=== PATIENT | female | born 1950 | race Hispanic/Latino ===

== ENCOUNTER 2018-03-05 15:22 | Emergency (ER) | payer OTHER ==
--- OUTSIDE RECORDS SUMMARY | 2018-03-05 15:25 | XMS REPORT ---
:1950 [facility] [address] [place] [address] Care Team Providers Name Role Phone Julio CHAMORRO Unavailable Unavailable Tracy MCDONNELL Unavailable Unavailable OLI BRYANT Unavailable Unavailable Problems This patient has no known problems. Allergies, Adverse Reactions, Alerts This patient has no known allergies or adverse reactions. Medications This patient has no known medications. Results Test Description Test Time Test Comments Text Results Atomic Results Result Comments FERRITIN 2017-09-26 11:00:00 Test Item Value Reference Range Comments FERRITIN (BEAKER) (test exva=273) 34 ng/mL 5-275 HEPATIC FUNCTION [id number] 10:44:00 Test Item Value Reference Range Comments TOTAL PROTEIN (BEAKER) (test jfoa=575) 7.4 gm/dL 6.0-8.3 ALBUMIN (BEAKER) (test ivgf=7469) 3.6 g/dL 3.5-5.0 BILIRUBIN TOTAL (BEAKER) (test mwub=857) 0.7 mg/dL 0.2-1.2 BILIRUBIN DIRECT (BEAKER) (test uijm=229) 0.3 mg/dL 0.1-0.5 ALKALINE PHOSPHATASE (BEAKER) (test uufe=927) 109 U/L 40-150 AST (SGOT) (BEAKER) (test jsuz=582) 23 U/L 5-34 ALT (SGPT) (BEAKER) (test qtnc=174) 16 U/L 6-55 BASIC METABOLIC [id number] 10:44:00 Test Item Value Reference Range Comments SODIUM (BEAKER) (test 138 meq/L 136-145 dxsk=165) POTASSIUM (BEAKER) (test 4.4 meq/L 3.5-5.1 jobf=837) CHLORIDE (BEAKER) (test 106 meq/L 98-107 sqpk=237) CO2 (BEAKER) (test 25 meq/L 22-29 ncom=988) BLOOD UREA NITROGEN 14 mg/dL 7-21 (BEAKER) (test dgvr=436) CREATININE (BEAKER) (test 0.93 mg/dL 0.57-1.25 twfp=232) GLUCOSE RANDOM (BEAKER) 90 mg/dL 70-105 (test sbyk=070) CALCIUM (BEAKER) (test 8.7 mg/dL 8.4-10.2 qfjg=408) EGFR (BEAKER) (test 60 mL/min/1.73 sq m ESTIMATED GFR IS NOT hkug=6036) ACCURATE CREATININE CLEARANCE IN PREDICTING GLOMERULAR FILTRATION RATE. ESTIMATED GFR IS NOT APPLICABLE FOR DIALYSIS PATIENTS. IRON, TIBC, % SAT. (WITHOUT FERRITIN)2017-09-26 10:39:00 Test Item Value Reference Range Comments IRON (BEAKER) (test mana=553) 37 ug/dL 40-160 TOTAL IRON BINDING CAPACITY (BEAKER) (test 365 ug/dL 250-450 gjjs=893) IRON % SATURATION (2) (BEAKER) (test kyrh=9775) 10 % 20-55 CBC W/PLT COUNT & AUTO [id number] 10:26:00 Test Item Value Reference Range Comments WHITE BLOOD CELL COUNT (BEAKER) (test njwl=176) 3.9 K/ L 3.5-10.5 RED BLOOD CELL COUNT (BEAKER) (test ixsr=219) 3.85 M/ L 3.93-5.22 HEMOGLOBIN (BEAKER) (test nxha=330) 9.1 GM/DL 11.2-15.7 HEMATOCRIT (BEAKER) (test kovj=950) 30.6 % 34.1-44.9 MEAN CORPUSCULAR VOLUME (BEAKER) (test ovuk=037) 79.5 fL 79.4-94.8 MEAN CORPUSCULAR HEMOGLOBIN (BEAKER) (test 23.6 pg 25.6-32.2 pvps=287) MEAN CORPUSCULAR HEMOGLOBIN CONC (BEAKER) (test 29.7 GM/DL 32.2-35.5 woky=136) RED CELL DISTRIBUTION WIDTH (BEAKER) (test 23.3 % 11.7-14.4 dgva=073) PLATELET COUNT (BEAKER) (test xngu=376) 89 K/CU MM 150-450 MEAN PLATELET VOLUME (BEAKER) (test evoe=022) 11.5 fL 9.4-12.3 NUCLEATED RED BLOOD CELLS (BEAKER) (test 0 /100 WBC 0-0 ndng=257) NEUTROPHILS RELATIVE PERCENT (BEAKER) (test 80 % ppja=923) LYMPHOCYTES RELATIVE PERCENT (BEAKER) (test 11 % iwzx=970) MONOCYTES RELATIVE PERCENT (BEAKER) (test 7 % ejyf=195) EOSINOPHILS RELATIVE PERCENT (BEAKER) (test 2 % whmc=057) BASOPHILS RELATIVE PERCENT (BEAKER) (test 1 % jskd=605) NEUTROPHILS ABSOLUTE COUNT (BEAKER) (test 3.09 K/ L 1.56-6.13 ewet=697) LYMPHOCYTES ABSOLUTE COUNT (BEAKER) (test 0.42 K/ L 1.18-3.74 ljgg=497) MONOCYTES ABSOLUTE COUNT (BEAKER) (test yyvw=498) 0.27 K/ L 0.24-0.36 EOSINOPHILS ABSOLUTE COUNT (BEAKER) (test 0.07 K/ L 0.04-0.36 prvv=154) BASOPHILS ABSOLUTE COUNT (BEAKER) (test hmev=184) 0.02 K/ L 0.01-0.08 IMMATURE GRANULOCYTES-RELATIVE PERCENT (BEAKER) 0 % 0-1 (test iaoo=3655) PROTHROMBIN [id number] 10:19:00 Test Item Value Reference Range Comments PROTIME (BEAKER) (test ynez=292) 15.6 seconds 11.7-14.7 INR (BEAKER) (test idzd=335) 1.3 <=5.9 RECOMMENDED COUMADIN/WARFARIN INR THERAPY RANGESSTANDARD DOSE: 2.0 - 3.0 Includes: PROPHYLAXIS forvenous thrombosis, systemic embolization; TREATMENT for venous thrombosis and/or pulmonary embolus.HIGH RISK: Target INR is 2.5-3.5 for patients with mechanical heart valves.RAD, CHEST, 2 [id number] 09:58: 00Reason for Exam:->follow up pleural effusion, follow up lung noduleFINAL REPORT EXAM: Frontal lateral chest radiograph HISTORY PROVIDED: Follow-up pleural effusion, follow-up lung nodule COMPARISON: Chest CT 08/30/2017 IMPRESSION:A moderate right pleural effusion is seen, similar to the previous CT examination allowing for differences in modality. The 3 mm pulmonary nodule described on the chest CT in the right lower lobe cannot be seen on this chest x-ray and a follow-up chest CT is recommended in August 2018 as previously recommended on the chest CT report. Right biapical pleural- parenchymal scarring/thickening is noted. The left lung isclear. No discernible pneumothorax. The cardiomediastinal silhouette is within normal limits. Atherosclerotic calcification of the aorta. Degenerative changes of the spine are present. No acute osseousabnormality. Signed: Neha Cruz MDReport Verified Date/Time: 09/26/2017 09:58:49 Reading Location: [facility] Mammo Reading Room BODY FLUID CULTURE + GRAM [id number] 08:01:00 Test Item Value Reference Range Comments CULTURE (BEAKER) (test fack=6243) No growth GRAM STAIN RESULT (BEAKER) (test <1+ WBCs vgdg=2379) GRAM STAIN RESULT (BEAKER) (test No organisms seen fqgb=86782) [id number] 21:07:00Medical Cytology Report Case: [id number] Authorizing Provider: Russ Chamorro MD Collected: 08/30/2017 1600 Ordering Location: [facility] Radiology Ultrasound Received: 08/31/2017 1011 Pathologist: Maricruz Nixon MD Specimen: Peritoneal Fluid PERITONEAL FLUID (CYTOSPINS): - NO MALIGNANT CELLS IDENTIFIED Signing Pathologist Direct Phone Line: Cytospins show mesothelial cells, macrophages and mixed inflammatory cells. Mild atypia is seen in the range of reactive changes. No diagnostic features of malignancy are seen. Clinical correlation is recommended. [id number]; liver cirrhosis PERITONEAL FLUID4 cytospins owuynzew5995 ml yellow fluidCollected: [id number]: [id number] [facility], Department of Pathology, [address] [place] [address], [place] [facility], Department of Pathology, [address] [place] [address], AWPY FLUID CELL COUNT WITH [id number] 10 :35:00 Test Item Value Reference Range Comments APPEARANCE FLUID (BEAKER) (test ioaw=438) Clear Clear COLOR FLUID (BEAKER) (test xfqe=681) Yellow Colorless, Straw Pale yellow RBC FLUID (BEAKER) (test mvmm=752) 213 /cu mm <=1 ADJUSTED WBC FLUID (BEAKER) (test lbye=5499) 78 /cu mm <=5 LINING CELLS (BEAKER) (test vpra=2584) 2 /cu mm <=1 NEUTROPHILS FLUID (BEAKER) (test wkws=8871) 9 % LYMPHS FLUID (BEAKER) (test khlb=900) 14 % MONO/MACROPHAGE FLUID (BEAKER) (test 77 % tlda=988) EOSINOPHILS FLUID (BEAKER) (test ynvg=839) 0 % BASO FLUID (BEAKER) (test hqdw=073) 0 % CONTAINER BODY FLUID (BEAKER) (test EDTA Tube ljen=0533) TRIGLYCERIDES, BODY [id number] 09:34:00 Test Item Value Reference Range Comments TRIGLYCERIDES FLUID (BEAKER) (test tpzj=839) < mg/dL Reference Range: No Normals Assay performance has not been validated for this type of specimen.ALBUMIN, BODY [id number] 09:34:00 Test Item Value Reference Range Comments ALBUMIN FLUID (BEAKER) (test xsyi=977) 0.4 gm/dL Reference Range: No Normals Assay performance has not been validated for this type of specimen.PROTEIN, BODY [id number] 09:34:00 Test Item Value Reference Range Comments PROTEIN FLUID (BEAKER) (test tdnm=725) < g/dL Absence of reference range indicates that normals have not been defined.Assay performance has not been validated for this type of specimen.CT, CHEST, WITHOUT [id number] 17:13:00FINAL REPORT TECHNIQUE: CT scan of the chest WITHOUT intravenous contrast. Dose modulation, iterative reconstruction, and/or weight-based adjustment of the mA/kV was utilized to reduce the radiation dose to as low as reasonably achievable. INDICATION: 67- year-old woman with pulmonary nodule. COMPARISON: Chest CT 10/05/2015. FINDINGS : ABSENCE OF INTRAVENOUS CONTRAST DECREASES SENSITIVITY FOR DETECTION OF FOCAL LESIONS AND VASCULAR PATHOLOGY. LINES/TUBES: None. LUNGS AND AIRWAYS: Central airways are patent. 3 mm nodule in the basal right lower lobe, not seen on prior exam (axial lung window series image 45). Unchanged biapical pleural- parenchymal scarring, right greater thanleft. Unchanged benign 3 mm nodule in the right apex (axial lung window series image 13). Relaxationatelectasis in the right lower lobe secondary to pleural effusions detail below. PLEURA: Moderate-large right pleural effusion. Unchanged scattered areas of pleural thickening/plaques. HEART AND MEDIASTINUM: Unchanged punctate calcification in the left thyroid. No significant mediastinal, hilar, or axillary lymphadenopathy. The heart and pericardium are within normal limits. Atherosclerotic calcifications in the thoracic aorta. SOFT TISSUES AND BONES: Osteopenia. Degenerative changes of the visualized spine. UPPER ABDOMEN: Cirrhotic morphology of the liver with unchanged cyst in the hepatic dome. Prior cholecystectomy. Splenomegaly. Small volume ascites. Clips in the stomach. IMPRESSION:3 mm nodule in the right lower lobe, not seen on prior exam. Unchanged benign biapical pleural-parenchymal scarring and right apical nodule. Moderate-large right pleural effusion. Cirrhosis with splenomegaly andsmall volume ascites. RECOMMENDATION:Follow-up noncontrast chest CT may be obtained in 12 months to assess stability of right lower lobe pulmonary nodule. Signed: Jr Terrazas MDReport Verified Date/Time: 08/30/2017 17:13:58 Reading Location: [facility] C013Y CT Body Reading Room U/S, ABDOMINAL, WITH [id number] 16:44:00Reason for Exam:->cirrhosis, screen for HCC, evaluate vesselsFINAL REPORT HISTORY : Cirrhosis COMPARISON : 12/22/2016 COMMENT : Complete ultrasound examination of the abdomen with color Doppler and spectral evaluation of the abdominal vasculature was performed. The visualized pancreas is unremarkable. The liver is normal in size measuring 12.0 cm in length and demonstrates a subtle nodular contour. The hepatic parenchyma is heterogeneous and coarse. There is a 2.1 x 2.2 x 2.1 cm cyst identified within the right hepatic lobe. No solid hepatic masses are identified. The gallbladder surgically absent. There is no intrahepatic biliary ductal dilatation. The common bile duct measures 4 mm. The spleen is enlarged measuring 16.4 cm in length. No focal splenic lesions are identified. The kidneys are normal in size measuring 11.3 cm on the right and 9.6 cm is in the left. An extrarenal pelvis is noted on the right. There is no evidence for solid renal mass, hydronephrosis, or shadowing calculi. There is scattered ascites and a right pleural effusion. Vascular:Nonocclusive thrombus is again identified within the main portal vein and proximal left portal vein, similar to the prior examination. There is antegrade flow within the main portalvein with a diameter of 1.7 cm. Peak systolic velocities 18.5 cm/s. Antegrade flow also noted withinthe right and left portal veins. The proper hepatic artery is patent with a resistive index of 0.9. The right and left hepatic arteries are patent with resistive indices of 0.9 and 0.8 respectively. Arterial waveforms are within normal limits. The SMV is patent with antegrade flow. The splenic artery and vein are patent. The IVC is patent and unremarkable. The middle, right, and left hepatic veins are patent with antegrade flow. The aorta tapers normally. IMPRESSION : Findings suggestive of cirrhosis and sequela of portal hypertension. Nonocclusive thrombus again identified within the portal system, similar to prior examinations. Right hepatic cyst. Ascites and right pleural effusion. Signed: Tanner Quintanilla MDReport Verified Date/Time: 08/30/2017 16:44: 30 Reading Location: [address] Ultrasound Reading Room U/S, [id number] 16:06:00Please send ascitic fluid for cell count and differential, albumin, protein, cytology, triglycerides, culture and sensitivity.If Cr > 1.5, do not remove more than 3.5L of ascitic fluid.If more than 3L are removed, please administer 200 mL of albumin 25% (50 grams) IV x 1.Please send ascitic fluid for cell count and differential, albumin, protein, cytology, triglycerides, culture and sensitivity.IfCr > 1.5, do not remove more than 3.5L of ascitic fluid.If more than 3L are removed, please administer 200 mL of albumin 25% (50 grams) IV x 1.Reason for Exam:->ascitesFINAL REPORT HISTORY : Ascites COMPARISON : None Comment : The procedure, including the risks and complications of the procedure, were explained to the patient and the patient consented. A pocket of fluid was identified in the right quadrant of the abdomen. This area was marked. The area was prepped and draped in the usual sterile fashion. 1% lidocaine was applied to the skin and deep soft tissues. A 5 Georgian multi-sidehole catheter was inserted and removed from the peritoneal space and approximately 1050 milliliters of clear yellow fluid was aspirated from the abdomen. Specimens were collected for the lab. There were no immediate complications. Impression: Successful ultrasound guided paracentesis with aspiration of 1050 mL of clear yellow fluid. Signed: Tanner Quintanilla MDReport Verified Date/Time: 08/30/2017 16:06:12 Reading Location: [address] Ultrasound Reading Room Electronically signed by: TANNER QUINTANILLA MD on 04:06 PMALPHA FETOPROTEIN (AFP), TUMOR [id number] 15:39:00 Test Item Value Reference Range Comments ALPHA-FETOPROTEIN (BEAKER) (test qsck=7393) 3.3 ng/mL <10.0 CBC W/PLT COUNT & AUTO [id number] 15:31:00 Test Item Value Reference Range Comments WHITE BLOOD CELL COUNT (BEAKER) (test shkb=407) 4.4 K/ L 3.5-10.5 RED BLOOD CELL COUNT (BEAKER) (test vaba=688) 4.22 M/ L 3.93-5.22 HEMOGLOBIN (BEAKER) (test ptyk=598) 9.4 GM/DL 11.2-15.7 HEMATOCRIT (BEAKER) (test smee=571) 31.8 % 34.1-44.9 MEAN CORPUSCULAR VOLUME (BEAKER) (test wvha=610) 75.4 fL 79.4-94.8 MEAN CORPUSCULAR HEMOGLOBIN (BEAKER) (test 22.3 pg 25.6-32.2 mxev=813) MEAN CORPUSCULAR HEMOGLOBIN CONC (BEAKER) (test 29.6 GM/DL 32.2-35.5 sstd=903) RED CELL DISTRIBUTION WIDTH (BEAKER) (test 20.0 % 11.7-14.4 djhy=924) PLATELET COUNT (BEAKER) (test ckpf=136) 89 K/CU MM 150-450 MEAN PLATELET VOLUME (BEAKER) (test xeyy=062) 10.2 fL 9.4-12.3 NUCLEATED RED BLOOD CELLS (BEAKER) (test 0 /100 WBC 0-0 tlwf=611) NEUTROPHILS RELATIVE PERCENT (BEAKER) (test 84 % jtjv=775) LYMPHOCYTES RELATIVE PERCENT (BEAKER) (test 8 % uxii=557) MONOCYTES RELATIVE PERCENT (BEAKER) (test 8 % czbb=490) EOSINOPHILS RELATIVE PERCENT (BEAKER) (test 0 % nyxu=642) BASOPHILS RELATIVE PERCENT (BEAKER) (test 0 % tplm=662) NEUTROPHILS ABSOLUTE COUNT (BEAKER) (test 3.65 K/ L 1.56-6.13 ahpx=579) LYMPHOCYTES ABSOLUTE COUNT (BEAKER) (test 0.34 K/ L 1.18-3.74 udme=886) MONOCYTES ABSOLUTE COUNT (BEAKER) (test khig=592) 0.34 K/ L 0.24-0.36 EOSINOPHILS ABSOLUTE COUNT (BEAKER) (test 0.01 K/ L 0.04-0.36 vqtd=271) BASOPHILS ABSOLUTE COUNT (BEAKER) (test mtlt=162) 0.01 K/ L 0.01-0.08 IMMATURE GRANULOCYTES-RELATIVE PERCENT (BEAKER) 1 % 0-1 (test yzpp=8896) HEPATIC FUNCTION [id number] 15:15:00 Test Item Value Reference Range Comments TOTAL PROTEIN (BEAKER) (test bozc=700) 8.4 gm/dL 6.0-8.3 ALBUMIN (BEAKER) (test xsrc=8991) 4.0 g/dL 3.5-5.0 BILIRUBIN TOTAL (BEAKER) (test fbym=304) 1.0 mg/dL 0.2-1.2 BILIRUBIN DIRECT (BEAKER) (test dmad=042) 0.5 mg/dL 0.1-0.5 ALKALINE PHOSPHATASE (BEAKER) (test eabx=317) 106 U/L 40-150 AST (SGOT) (BEAKER) (test bsae=549) 29 U/L 5-34 ALT (SGPT) (BEAKER) (test shrh=494) 17 U/L 6-55 BASIC METABOLIC [id number] 15:15:00 Test Item Value Reference Range Comments SODIUM (BEAKER) (test 140 meq/L 136-145 egmr=023) POTASSIUM (BEAKER) (test 3.6 meq/L 3.5-5.1 uvty=142) CHLORIDE (BEAKER) (test 105 meq/L 98-107 ndrs=368) CO2 (BEAKER) (test 25 meq/L 22-29 udlt=116) BLOOD UREA NITROGEN 11 mg/dL 7-21 (BEAKER) (test qjdv=009) CREATININE (BEAKER) (test 0.76 mg/dL 0.57-1.25 yerz=298) GLUCOSE RANDOM (BEAKER) 62 mg/dL 70-105 (test qaox=202) CALCIUM (BEAKER) (test 9.3 mg/dL 8.4-10.2 igfy=370) EGFR (BEAKER) (test 75 mL/min/1.73 sq m ESTIMATED GFR IS NOT qjhf=6612) ACCURATE CREATININE CLEARANCE IN PREDICTING GLOMERULAR FILTRATION RATE. ESTIMATED GFR IS NOT APPLICABLE FOR DIALYSIS PATIENTS. PROTHROMBIN TIME/[id number] 15:06:00 Test Item Value Reference Range Comments PROTIME (BEAKER) (test mnrg=739) 16.5 seconds 11.7-14.7 INR (BEAKER) (test vwaw=516) 1.3 <=5.9 RECOMMENDED COUMADIN/WARFARIN INR THERAPY RANGESSTANDARD DOSE: 2.0 - 3.0 Includes: PROPHYLAXIS forvenous thrombosis, systemic embolization; TREATMENT for venous thrombosis and/or pulmonary embolus.HIGH RISK: Target INR is 2.5-3.5 for patients with mechanical heart valves.ALPHA FETOPROTEIN (AFP), TUMOR [id number] 14:27:00 Test Item Value Reference Range Comments ALPHA-FETOPROTEIN (BEAKER) (test mhvv=4381) 4.0 ng/mL <10.0 Effective 09/29/2014: Reference Range ChangeNew: <10.0 Previous: 0.0- 8.0HEPATIC FUNCTION [id number] 13:59:00 Test Item Value Reference Range Comments TOTAL PROTEIN (BEAKER) (test cvus=840) 7.9 gm/dL 6.0-8.3 ALBUMIN (BEAKER) (test oeeq=0958) 3.9 g/dL 3.5-5.0 BILIRUBIN TOTAL (BEAKER) (test wvky=343) 0.8 mg/dL 0.2-1.2 BILIRUBIN DIRECT (BEAKER) (test bvjc=609) 0.4 mg/dL 0.1-0.5 ALKALINE PHOSPHATASE (BEAKER) (test zrci=434) 108 U/L 40-150 AST (SGOT) (BEAKER) (test odxn=045) 35 U/L 5-34 ALT (SGPT) (BEAKER) (test jwdp=664) 24 U/L 6-55 BASIC METABOLIC [id number] 13:59:00 Test Item Value Reference Range Comments SODIUM (BEAKER) (test 140 meq/L 136-145 rxss=877) POTASSIUM (BEAKER) (test 4.1 meq/L 3.5-5.1 gcum=823) CHLORIDE (BEAKER) (test 107 meq/L 98-107 faec=433) CO2 (BEAKER) (test 28 meq/L 22-29 mrrj=889) BLOOD UREA NITROGEN 12 mg/dL 7-21 (BEAKER) (test uqiz=526) CREATININE (BEAKER) (test 0.81 mg/dL 0.57-1.25 gxll=714) GLUCOSE RANDOM (BEAKER) 61 mg/dL 70-105 (test qaln=321) CALCIUM (BEAKER) (test 9.5 mg/dL 8.4-10.2 geug=036) EGFR (BEAKER) (test 70 mL/min/1.73 sq m ESTIMATED GFR IS NOT krqo=8028) ACCURATE CREATININE CLEARANCE IN PREDICTING GLOMERULAR FILTRATION RATE. ESTIMATED GFR IS NOT APPLICABLE FOR DIALYSIS PATIENTS. PROTHROMBIN TIME/[id number] 13:42:00 Test Item Value Reference Range Comments PROTIME (BEAKER) (test yclb=734) 14.8 seconds 11.7-14.7 INR (BEAKER) (test bqbc=907) 1.2 <=5.9 RECOMMENDED COUMADIN/WARFARIN INR THERAPY RANGESSTANDARD DOSE: 2.0 - 3.0 Includes: PROPHYLAXIS forvenous thrombosis, systemic embolization; TREATMENT for venous thrombosis and/or pulmonary embolus.HIGH RISK: Target INR is 2.5-3.5 for patients with mechanical heart valves.CBC W/PLT COUNT & AUTO [id number] 13:35:00 Test Item Value Reference Range Comments WHITE BLOOD CELL COUNT (BEAKER) (test ghjt=881) 4.0 K/ L 4.0-10.0 RED BLOOD CELL COUNT (BEAKER) (test zzts=308) 3.60 M/ L 4.00-5.00 HEMOGLOBIN (BEAKER) (test rhfi=866) 10.2 GM/DL 12.0-15.0 HEMATOCRIT (BEAKER) (test icny=622) 29.8 % 36.0-45.0 MEAN CORPUSCULAR VOLUME (BEAKER) (test hgno=390) 82.7 fL 82.0-99.0 MEAN CORPUSCULAR HEMOGLOBIN (BEAKER) (test 28.4 pg 27.0-33.0 wxrn=563) MEAN CORPUSCULAR HEMOGLOBIN CONC (BEAKER) (test 34.4 GM/DL 32.0-36.0 hzmz=275) RED CELL DISTRIBUTION WIDTH (BEAKER) (test 15.3 % 10.3-14.2 wdlh=222) PLATELET COUNT (BEAKER) (test mpwn=607) 81 K/CU MM 150-430 MEAN PLATELET VOLUME (BEAKER) (test abuy=881) 9.3 fL 6.5-10.5 NUCLEATED RED BLOOD CELLS (BEAKER) (test 0 /100 WBC 0-0 edwh=335) NEUTROPHILS RELATIVE PERCENT (BEAKER) (test 76 % nktt=123) LYMPHOCYTES RELATIVE PERCENT (BEAKER) (test 14 % zkjf=041) MONOCYTES RELATIVE PERCENT (BEAKER) (test 7 % eufe=222) EOSINOPHILS RELATIVE PERCENT (BEAKER) (test 1 % dkin=824) BASOPHILS RELATIVE PERCENT (BEAKER) (test 2 % rikx=545) NEUTROPHILS ABSOLUTE COUNT (BEAKER) (test 3.03 K/ L 1.80-8.00 kafu=549) LYMPHOCYTES ABSOLUTE COUNT (BEAKER) (test 0.56 K/ L 1.48-4.50 kvrk=151) MONOCYTES ABSOLUTE COUNT (BEAKER) (test ybad=963) 0.28 K/ L 0.00-1.30 EOSINOPHILS ABSOLUTE COUNT (BEAKER) (test 0.05 K/ L 0.00-0.50 stgp=822) BASOPHILS ABSOLUTE COUNT (BEAKER) (test vijz=404) 0.07 K/ L 0.00-0.20 0.00
--- OUTSIDE RECORDS SUMMARY | 2018-03-05 15:25 | XMS REPORT | Clinical Summary ---
:1950 Author Organization [facility] Address [address] [place] [address] Phone Care Team Providers Name Role Phone Unavailable Primary Care Provider Unavailable Allergies No Known Allergies Current Medications Prescription Sig. Disp. Refills Start Date End Date Status sucralfate (CARAFATE) 11/21/2016 Active 1 gram tablet levothyroxine 12/20/2016 Active (SYNTHROID, LEVOTHROID) 50 MCG tablet HUMULIN 70/30 100 12/21/2016 Active unit/mL (70-30) injection pantoprazole Take 40 mg Active (PROTONIX) 40 MG by mouth 2 tablet (two) times daily. amLODIPine (NORVASC) Take 5 mg by Active 5 MG tablet mouth daily. mesalamine (LIALDA) Take 1,200 Active 1.2 gram EC tablet mg by mouth daily with breakfast. metoprolol Take 50 mg Active (TOPROL-XL) 50 MG 24 by mouth hr tablet daily. rifAXIMin 550 mg Tab Take 550 mg Active by mouth 2 (two) times daily. traMADol (ULTRAM) 50 Take 50 mg Active mg tablet by mouth every 6 (six) hours as needed for Pain. spironolactone Take 1 30 tablet 3 08/29/2017 08/29/2018 Active (ALDACTONE) 50 MG tablet (50 tablet mg total) by mouth daily. IRON, FERROUS Take by Active SULFATE, ORAL mouth. furosemide (LASIX) 20 TAKE 1 30 tablet 0 01/29/2018 Active MG tablet TABLET(20 MG) BY MOUTH DAILY rifAXIMin 550 mg Take 1 60 tablet 6 02/06/2018 Active TabIndications: tablet (550 Portal hypertension mg total) by (HCC) mouth 2 (two) times daily. aspirin 81 MG EC Take 81 mg 08/29/2017 Discontinued tablet by mouth daily. furosemide (LASIX) 20 Take 1 30 tablet 3 08/29/2017 01/24/2018 Discontinued MG tablet tablet (20 mg total) by mouth daily. Active Problems Problem Noted Date Iron deficiency anemia 09/19/2017 Pulmonary nodule 08/30/2017 Gastrointestinal hemorrhage with melena 08/29/2017 Altered mental status 12/22/2016 Seizure (HCC) 12/22/2016 Cirrhosis 10/19/2014 Last Assessment & Plan: Although we do not have histologic proof, the combination of clinical findings, laboratory parameters, and imaging are sufficient to make the diagnosis of cirrhosis. 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 Portal hypertension 10/19/2014 Last Assessment & Plan: Manifested by esophageal varices, ascites and hypersplenism. Esophageal varices 10/19/2014 Last Assessment & Plan: Because of the risk for upper GI bleeding, all patients with portal hypertension should be screened for gastroesopahgeal varices and/or portal hypertensive gastropathy. If varices and gastropathy are ab sent, screening should be repeated in 24 months. If varices and/or portal hypertensive gastropathy are present, recommendations for observation versus therapy with non-cardioselective beta blockers and/ or variceal band ligation should be based on the size of the varices and risk for hemorrhage. Screening for cancer 10/19/2014 Last Assessment & Plan: Patients with cirrhosis, regardless of etiology, have a markedly increased risk of developing hepatocellular carcinoma (HCC). We recommend HCC surveillance every 6 months by imaging and evaluation of serum AFP. -Will get MRI in future after reviewing US Diabetes (HCC) 10/19/2014 Last Assessment & Plan: Currently taking Januvia will defer treatment to PCP. Metabolic syndrome 10/19/2014 Last Assessment & Plan: Metabolic Syndrome is a risk factor for the development of NAFLD and HCC. The patient exhibits features of metabolic syndrome including truncal obesity (Body mass index is 27.14 kg/(m^2).), hypertensio n, insulin resistance, and hyperlipidemia (on meds / triglyceride >150 / HDL <40). We recommend the patient adhere to a low carbohydrate diet and engage in regular physical activity as tolerated. Immunity status testing 10/19/2014 Last Assessment & Plan: CDC recommends that all patients with chronic liver disease, regardless of etiology, should be immunized to prevent hepatitis A and hepatitis B if they are not already immune. This should be done in ad dition to other age-appropriate vaccines. We will test for immunity to both viruses - vaccine recommendations will follow. Abnormal liver enzymes 10/19/2014 Last Assessment & Plan: The patient's liver test abnormalities are likely related to NAFLD/VASQUEZ. However, we also ordered comprehensive testing for metabolic, viral, genetic, and autoimmune liver diseases to detect alternativ e etiologies and all comorbid conditions affecting hepatic function. Ascites 10/19/2014 Last Assessment & Plan: First developed 07/2014, requiring no paracentesis. Exam today revealed no ascites. Currently taking lasix 20 mg and spironolactone 100 mg for diuresis. Recommend the patient follow a diet of less t echavarria 2,000mg sodium daily. Non-alcoholic fatty liver disease 10/19/2014 Last Assessment & Plan: Metabolic Syndrome is a risk factor for the development of NAFLD . She has negative work up for other etiologies as above. Encounters Date Type Specialty Care Team Description 02/06/2018 Orders Only Hepatology Wanda Nolan Cirrhosis of liver P RN with ascites, unspecified hepatic cirrhosis type (HCC) (Primary Dx) 02/06/2018 Orders Only Hepatology Wanda Nolan Cirrhosis of liver Filemon, RN with ascites, unspecified hepatic cirrhosis type (HCC) (Primary Dx);Portal hypertension (HCC) 01/24/2018 Refill Hepatology Russ Burgos MD 11/02/2017 Abstract Hepatology Yen Cardozo 09/26/2017 Hospital Encounter Radiology Russ Burgos Pleural effusion MD Julio 09/26/2017 Office Visit Hepatology Kenneth Braun Cirrhosis of liver with ascites, Iris Kulkarni unspecified hepatic Ramiro, [employer] cirrhosis type (HCC) (Primary Dx);Portal hypertension;Esophag eal varices without bleeding, unspecified esophageal varices type (HCC);Screening for cancer;Abnormal liver enzymes;Other ascites;Iron deficiency anemia, unspecified iron deficiency anemia type;Pulmonary nodule 09/26/2017 Orders Only Transplant Russ Burgos Cirrhosis of liver Hepatology MD Julio with ascites, unspecified hepatic cirrhosis type (HCC);Iron deficiency anemia, unspecified iron deficiency anemia type 09/26/2017 Documentation Hepatology Iris Kulkarni FNP 09/19/2017 Documentation Hepatology Iris Kulkarni Cirrhosis of liver LUISANA Rubio with ascites, unspecified hepatic cirrhosis type (HCC) (Primary Dx);Iron deficiency anemia, unspecified iron deficiency anemia type 09/11/2017 Documentation Hepatology Iris Kulkarni FNP 09/05/2017 Documentation Hepatology Iris Kulkarni Pleural effusion LUISANA Rubio (Primary Dx) 08/30/2017 Hospital Encounter Radiology Aubrey, Rise Other ascites MD Julio 08/30/2017 Hospital Encounter Radiology Cirrhosis of liver with ascites, unspecified hepatic cirrhosis type (HCC);Screening for cancer 08/30/2017 Hospital Encounter Radiology Aubrey, Rise Pulmonary nodule MD Julio 08/30/2017 Abstract Hepatology Yen Cardozo 08/29/2017 Office Visit Hepatology Kenneth Braun Cirrhosis of liver with ascites, Aubrey, Rise unspecified hepatic MD Julio cirrhosis type (HCC) (Primary Dx);Other ascites;Screening for cancer;Gastrointesti nal hemorrhage with melena;Portal hypertension (HCC);Pulmonary nodule 03/07/2017 Telephone Transplant Cuong Bhatia other (script) Hepatology RN after 03/04/2017 Family History Medical History Relation Name Comments Diabetes Brother Diabetes Brother Diabetes Mother Hypertension Mother Diabetes Sister Thyroid disease Sister Relation Name Status Comments Brother Brother Mother Sister Sister Social History Tobacco Use Types Packs/Day Years Used Date Never Smoker Smokeless Tobacco: Never Used Alcohol Use Drinks/Week oz/Week Comments No Sex Assigned at Date Recorded Not on file Last Filed Vital Signs Vital Sign Reading Time Taken Blood Pressure 116/56 09/26/2017 10:07 AM [employer] [employer] [facility] Pulse 58 09/26/2017 10:07 AM [facility] Temperature 36.7 C (98 F) 09/26/2017 10:07 AM [facility] Respiratory Rate 18 09/26/2017 10:07 AM [facility] Oxygen Saturation 98% 09/26/2017 10:07 AM [facility] Inhaled Oxygen Concentration - - Weight 64.4 kg (142 lb) 09/26/2017 10:07 AM [facility] Height 157.5 cm (5' 2") 09/26/2017 10:07 AM [facility] Body Mass Index 25.97 09/26/2017 10:07 AM [facility] Plan of Treatment Health Maintenance Due Date Last Done Comments INFLUENZA VACCINE 08/12/2018 Results XR chest 2 views (09/26/2017 9:45 AM) Specimen Performing Laboratory [facility] Narrative FINAL REPORT EXAM: Frontal lateral chest radiograph HISTORY PROVIDED: Follow-up pleural effusion, follow-up lung nodule COMPARISON: Chest CT 08/30/2017 IMPRESSION: A moderate right pleural effusion is seen, similar to the previous CT examination allowing for differences in modality. The 3 mm pulmonary nodule described on the chest CT in the right lower lobe cannot be seen on this chest x-ray and a follow-up chest CT is recommended in August 2018 as previously recommended on the chest CT report. Right biapical pleural-parenchymal scarring/thickening is noted. The left lung is clear. No discernible pneumothorax. The cardiomediastinal silhouette is within normal limits. Atherosclerotic calcification of the aorta. Degenerative changes of the spine are present. No acute osseous abnormality. Signed: Neha Roth MD Report Verified Date/Time:09/26/2017 09:58:49 Reading Location: [facility] [employer] Reading Room Procedure Note Interface, External Ris In - 09/26/2017 10:01 AM DIRECT[employer] FINAL REPORT EXAM: Frontal lateral chest radiograph HISTORY PROVIDED: Follow-up pleural effusion, follow-up lung nodule COMPARISON: Chest CT 08/30/2017 IMPRESSION: A moderate right pleural effusion is seen, similar to the previous CT examination allowing for differences in modality. The 3 mm pulmonary nodule described on the chest CT in the right lower lobe cannot be seen on this chest x-ray and a follow-up chest CT is recommended in August 2018 as previously recommended on the chest CT report. Right biapical pleural-parenchymal scarring/thickening is noted. The left lung is clear. No discernible pneumothorax. The cardiomediastinal silhouette is within normal limits. Atherosclerotic calcification of the aorta. Degenerative changes of the spine are present. No acute osseous abnormality. Signed: Neha Roth MD Report Verified Date/Time: 09/26/2017 09:58:49 Reading Location: [facility] [employer] Reading Room Iron, TIBC, % sat. (without ferritin) (09/26/2017 8:49 AM)Only the most recent of2 resultswithin the time period is included. Component Value Ref Range Iron 37 (L) 40 - 160 ug/dL TIBC 365 250 - 450 ug/dL Iron % Saturation 10 (L) 20 - 55 % Specimen Performing Laboratory Blood [address] [address] CBC with platelet count + automated diff (09/26/2017 8:49 AM)Only the most recent of2 resultswithin the time period is included. Component Value Ref Range WBC 3.9 3.5 - 10.5 K/L RBC 3.85 (L) 3.93 - 5.22 M/L Hemoglobin 9.1 (L) 11.2 - 15.7 GM/DL Hematocrit 30.6 (L) 34.1 - 44.9 % MCV 79.5 79.4 - 94.8 fL MCH 23.6 (L) 25.6 - 32.2 pg MCHC 29.7 (L) 32.2 - 35.5 GM/DL RDW 23.3 (H) 11.7 - 14.4 % Platelets 89 (L) 150 - 450 K/CU MM MPV 11.5 9.4 - 12.3 fL nRBC 0 0 - 0 /100 WBC % Neutros 80 % % Lymphs 11 % % Monos 7 % % Eos 2 % % Baso 1 % # Neutros 3.09 1.56 - 6.13 K/L # Lymphs 0.42 (L) 1.18 - 3.74 K/L # Monos 0.27 0.24 - 0.36 K/L # Eos 0.07 0.04 - 0.36 K/L # Baso 0.02 0.01 - 0.08 K/L Immature Granulocytes-Relative 0 0 - 1 % Specimen Performing Laboratory Blood [address] [address] Pro-time/INR (09/26/2017 8:49 AM)Only the most recent of3 resultswithin the time period is included. Component Value Ref Range Protime 15.6 (H) 11.7 - 14.7 seconds INR 1.3 <=5.9 Specimen Performing Laboratory Blood [facility] [address] [address] Narrative RECOMMENDED COUMADIN/WARFARIN INR THERAPY RANGES STANDARD DOSE: 2.0 - 3.0 Includes: PROPHYLAXIS for venous thrombosis, systemic embolization; TREATMENT for venous thrombosis and/or pulmonary embolus. HIGH RISK: Target INR is 2.5-3.5 for patients with mechanical heart valves. CBC with platelet count + automated diff (09/26/2017 8:49 AM)Only the most recent of3 resultswithin the time period is included. Specimen Performing Laboratory Blood Narrative The following orders were created for panel order CBC with platelet count + automated diff. Procedure Abnormality Status --------- ------ CBC with platelet count ...[[id number]]AbnormalFinal result Please view results for these tests on the individual orders. Ferritin (09/26/2017 8:49 AM)Only the most recent of2 resultswithin the time period is included. Component Value Ref Range Ferritin 34 5 - 275 ng/mL Specimen Performing Laboratory Blood [address] [address] Hepatic function panel (09/26/2017 8:49 AM)Only the most recent of3 resultswithin the time period is included. Component Value Ref Range Protein, Total 7.4 6.0 - 8.3 gm/dL Albumin 3.6 3.5 - 5.0 g/dL Total Bilirubin 0.7 0.2 - 1.2 mg/dL Bilirubin, Direct 0.3 0.1 - 0.5 mg/dL Alkaline Phosphatase 109 40 - 150 U/L AST 23 5 - 34 U/L ALT 16 6 - 55 U/L Specimen Performing Laboratory Blood [address] [address] Basic Metabolic Panel (09/26/2017 8:49 AM)Only the most recent of3 resultswithin the time period is included. Component Value Ref Range Sodium 138 136 - 145 meq/L Potassium 4.4 3.5 - 5.1 meq/L Chloride 106 98 - 107 meq/L CO2 25 22 - 29 meq/L BUN 14 7 - 21 mg/dL Creatinine 0.93 0.57 - 1.25 mg/dL Glucose 90 70 - 105 mg/dL Calcium 8.7 8.4 - 10.2 mg/dL EGFR 60Comment: ESTIMATED GFR IS NOT ACCURATE mL/min/1.73 sq m CREATININE CLEARANCE IN PREDICTING GLOMERULAR FILTRATION RATE. ESTIMATED GFR IS NOT APPLICABLE FOR DIALYSIS PATIENTS. Specimen Performing Laboratory Blood [address] [address] Body fluid culture + gram stain (08/31/2017 8:35 AM) Component Value Ref Range Result No growth Gram Stain Result <1+ WBCs Gram Stain Result No organisms seen Specimen Performing Laboratory Body Fluid - Ascites [address] [address] Triglycerides, body fluid (08/31/2017 8:35 AM) Component Value Ref Range Triglycerides, Fluid <7 mg/dL Specimen Performing Laboratory Body Fluid - Ascites [address] [address] Narrative Reference Range:No Normals Assay performance has not been validated for this type of specimen. Body fluid cell count with differential (08/31/2017 8:34 AM) Component Value Ref Range Appearance Clear Clear Color Yellow (A)Comment: Pale yellow Colorless, Straw RBCs 213 (H) <=1 /cu mm Adjusted WBC Count 78 (H) <=5 /cu mm Lining Cells 2 (H) <=1 /cu mm % Segs 9 % % Lymphs 14 % % Monos 77 % % Eos 0 % % Baso 0 % Container Body Fluid EDTA Tube Specimen Performing Laboratory Body Fluid - Ascites [address] [address] Protein, body fluid (08/31/2017 8:34 AM) Component Value Ref Range Protein, Fluid <0.8 g/dL Specimen Performing Laboratory Body Fluid - Ascites [address] [address] Narrative Absence of reference range indicates that normals have not been defined. Assay performance has not been validated for this type of specimen. Albumin, body fluid (08/31/2017 8:34 AM) Component Value Ref Range Albumin, Fluid 0.4 gm/dL Specimen Performing Laboratory Body Fluid - Ascites [address] [address] Narrative Reference Range:No Normals Assay performance has not been validated for this type of specimen. Cytology (08/30/2017 4:00 PM) Component Value Ref Range Case Report Medical Cytology Report Case: [id number] Authorizing Provider:Russ Burgos MDCollected: 08/30/2017 1600 Ordering Location: [facility] Radiology Ultrasound Received: 08/31/2017 1011 Pathologist: Maricruz Nixon MD Specimen:Peritoneal Fluid DIAGNOSIS PERITONEAL FLUID (CYTOSPINS): - NO MALIGNANT CELLS IDENTIFIED Signing Pathologist Direct Phone Line: [phone] COMMENT Cytospins show mesothelial cells, macrophages and mixed inflammatory cells. Mild atypia is seen in the range of reactive changes. No diagnostic features of malignancy are seen. Clinical correlation is recommended. CPT Code(s) 88544 CLINICAL DATA Ascites; liver cirrhosis SPECIMEN SOURCE PERITONEAL FLUID GROSS DESCRIPTION 4 cytospins prepared 1000 ml yellow fluid Collected: [id number] Received: [id number] STATEMENT OF ADEQUACY Satisfactory Technical component was performed at [facility], Department of Pathology, [address] [place] [id number], Professional component was performed [facility], at Department of Pathology, [address] [place] [address], Specimen Performing Laboratory Body Fluid - Peritoneal Fluid [address] [address] [address] chest without IV contrast (08/30/2017 2:32 PM) Specimen Performing Laboratory [facility] Narrative FINAL REPORT TECHNIQUE: CT scan of the chest WITHOUT intravenous contrast. Dose modulation, iterative reconstruction, and/or weight-based adjustment of the mA/kV was utilized to reduce the radiation dose to as low as reasonably achievable. INDICATION: 67-year-old woman with pulmonary nodule. COMPARISON: Chest CT 10/05/2015. FINDINGS: ABSENCE OF INTRAVENOUS CONTRAST DECREASES SENSITIVITY FOR DETECTION OF FOCAL LESIONS AND VASCULAR PATHOLOGY. LINES/TUBES: None. LUNGS AND AIRWAYS: Central airways are patent. 3 mm nodule in the basal right lower lobe, not seen on prior exam (axial lung window series image 45). Unchanged biapical pleural-parenchymal scarring, right greater than left. Unchanged benign 3 mm nodule in the right apex (axial lung window series image 13). Relaxation atelectasis in the right lower lobe secondary to [...] Small volume ascites. Clips in the stomach. IMPRESSION: 3 mm nodule in the right lower lobe, not seen on prior exam. Unchanged benign biapical pleural-parenchymal scarring and right apical nodule. Moderate-large right pleural effusion. Cirrhosis with splenomegaly and small volume ascites. RECOMMENDATION: Follow-up noncontrast chest CT may be obtained in 12 months to assess stability of right lower lobe pulmonary nodule. Signed: Jr Terrazas MD Report Verified Date/Time:08/30/2017 17:13:58 Reading Location: [address] Body Reading Room Procedure Note Interface, External Ris In - 08/30/2017 5:16 PM CDT FINAL REPORT TECHNIQUE: CT scan of the chest WITHOUT intravenous contrast. Dose modulation, iterative reconstruction, and/or weight-based adjustment of the mA/kV was utilized to reduce the radiation dose to as low as reasonably achievable. INDICATION: 67-year-old woman with pulmonary nodule. COMPARISON: Chest CT 10/05/2015. FINDINGS: ABSENCE OF INTRAVENOUS CONTRAST DECREASES SENSITIVITY FOR DETECTION OF FOCAL LESIONS AND VASCULAR PATHOLOGY. LINES/TUBES: None. LUNGS AND AIRWAYS: Central airways are patent. 3 mm nodule in the basal right lower lobe, not seen on prior exam (axial lung window series image 45). Unchanged biapical pleural-parenchymal scarring, right greater than left. Unchanged benign 3 mm nodule in the right apex (axial lung window series image 13). Relaxation atelectasis in the right lower lobe secondary to [...] Small volume ascites. Clips in the stomach. IMPRESSION: 3 mm nodule in the right lower lobe, not seen on prior exam. Unchanged benign biapical pleural-parenchymal scarring and right apical nodule. Moderate-large right pleural effusion. Cirrhosis with splenomegaly and small volume ascites. RECOMMENDATION: Follow-up noncontrast chest CT may be obtained in 12 months to assess stability of right lower lobe pulmonary nodule. Signed: Jr Terrazas MD Report Verified Date/Time: 08/30/2017 17:13:58 Reading Location: [facility] [id number] CT Body Reading Room abdominal with doppler (08/30/2017 2:10 PM) Specimen Performing Laboratory [employer] Narrative FINAL REPORT HISTORY : Cirrhosis COMPARISON : 12/22/2016 [...] scattered ascites and a right pleural effusion. Vascular: Nonocclusive thrombus is again identified within the main portal vein and proximal left portal vein, similar to the prior examination. There is antegrade flow within the main portal vein with a diameter of 1.7 cm. Peak systolic velocities 18.5 cm/s. Antegrade flow also noted within the right and left portal veins. The proper [...] and right pleural effusion. Signed: Tanner Quintanilla MD Report Verified Date/Time:08/30/2017 16:44:30 Reading Location: [facility] [id number] Ultrasound Reading Room Procedure Note Interface, External Ris In - 08/30/2017 4:46 PM CDT FINAL REPORT HISTORY : Cirrhosis COMPARISON : 12/22/2016 [...] scattered ascites and a right pleural effusion. Vascular: Nonocclusive thrombus is again identified within the main portal vein and proximal left portal vein, similar to the prior examination. There is antegrade flow within the main portal vein with a diameter of 1.7 cm. Peak systolic velocities 18.5 cm/s. Antegrade flow also noted within the right and left portal veins. The proper [...] and right pleural effusion. Signed: Tanner Quintanilla MD Report Verified Date/Time: 08/30/2017 16:44:30 Reading Location: [address] Ultrasound Reading Room paracentesis (08/30/2017 2:10 PM) Specimen Performing Laboratory [facility] Narrative FINAL REPORT HISTORY : Ascites COMPARISON : None [...] skin and deep soft tissues. A 5 Kenyan multi-sidehole catheter was inserted and removed from the peritoneal space and approximately 1050 milliliters of clear yellow fluid was aspirated from the abdomen. Specimens were collected for the lab. There were no immediate complications. Impression: Successful ultrasound guided paracentesis with aspiration of 1050 mL of clear yellow fluid. Signed: Tanner Quintanilla MD Report Verified Date/Time:08/30/2017 16:06:12 Reading Location: [address] Ultrasound Reading Room Procedure Note Interface, External Ris In - 08/30/2017 4:08 PM CDT FINAL REPORT HISTORY : Ascites COMPARISON : None [...] skin and deep soft tissues. A 5 Kenyan multi-sidehole catheter was inserted and removed from the peritoneal space and approximately 1050 milliliters of clear yellow fluid was aspirated from the abdomen. Specimens were collected for the lab. There were no immediate complications. Impression: Successful ultrasound guided paracentesis with aspiration of 1050 mL of clear yellow fluid. Signed: Tanner Quintanilla MD Report Verified Date/Time: 08/30/2017 16:06:12 Reading Location: [address] Ultrasound Reading Room Alpha fetoprotein (AFP), tumor marker (08/29/2017 2:23 PM) Component Value Ref Range Alpha-Fetoprotein 3.3 <10.0 ng/mL Specimen Performing Laboratory Blood [facility] [address] [address] after 03/04/2017
--- NOTE | 2018-03-05 17:07 | RAD REPORT ---
EXAM DESCRIPTION: CT - Stone Protocol - 03/05/2018 4:52 pm CLINICAL HISTORY: Abdominal pain, back pain COMPARISON: CT July 2015 TECHNIQUE: Axial 5 mm thick images were obtained without oral or IV contrast. The [id number] span s the entirety of the system partially obscuring uppermost abdomen and lung bases. All CT scans are performed using dose optimization technique as appropriate and may include automated exposure control or mA/KV adjustment according to patient size. FINDINGS: No hydronephrosis is present and no obstructing ureteral calculi. No suspicious renal mass es. Isodense masses and pyelonephritis are not excluded on a stone protocol CT scan. Contracted urina ry bladder shows wall thickening. This is difficult to accurately assess. Atrophic uterus is present. Ovaries are partially obscured by adjacent bowel. A primary ovarian process is not suspected. Cyst in the superior liver has not changed from prior and pain. Liver has a nodular contour. Splenome mynor is present without focal splenic hilum. Cholecystectomy clips are present. No biliary tree dilat ation. No significant adrenal finding. Bowel wall thickening and edema are present. Assessment is limited by the absence of intraluminal con trast. Metallic clips are present possibly from prior surgical procedure. Small bowel loops show prom inent razo. There is circumferential wall thickening throughout the colon. There is congestion or ed gasper in the fat adjacent to the large bowel and an overall mild ascites pattern. Fat only periumbilica l hernia is present new from the comparison study. Small to moderate left-side and large right-sided inguinal hernias are present filled with ascites. No hernia, mass or bulky lymphadenopathy noted. No free air, free fluid or inflammatory stranding. No significant bony abnormality. Small to moderate right pleural effusion is present. No pericardial thickening or effusion. IMPRESSION: No bowel obstruction free air or surgically emergent finding. Wall thickening and edema involving the colon, small bowel and stomach. Ischemia the entire bowel wou ld be quite unusual. This is probably edema and/ or inflammatory change related to the liver dysfunct ion. Small amount of ascites is present. Cirrhotic liver changes in cirrhosis noted. No hydronephrosis or acute finding. Urinary bladder razo are thickened probably due to contracted state. Isodense masses and pyelonephritis are not excluded on stone protocol technique.
[2018-03-05 17:12] LABS: Absolute Lymphocytes (CBC) 0.3 K/uL (0.7-4.9); Absolute Monocytes 0.3 K/uL (0.1-1.3); Absolute Neutrophil 5.4 K/uL (1.8-8.0); Basophils % 0.5 % (0-1.3); Eosinophils % 0.2 % (0-4.4); Hematocrit 32.7 % (36.0-45.0); Lymphocytes % 5.8 % (15.3-44.8); MCH 30.1 pg (27.0-35.0); MCV 86.8 fL (80-100); MPV 8.6 fL (7.6-11.3); Monocytes % 4.6 % (3.3-12.3); RBC Red Blood Cell Count 3.77 M/uL (3.86-4.86)
[2018-03-05 17:23] LABS: Potassium 3.7 mEq/L (3.6-5.0)
[2018-03-05 17:29] LABS: Bilirubin Direct 0.4 mg/dL (0-0.2); Bilirubin Total 1.5 mg/dL (0.3-1.2); Protein, Total 7.9 g/dL (6.0-8.3)
[2018-03-05 18:17] LABS: Calcium Oxalate Crystals- Ur FEW (NONE SEEN); Urine Bacteria 20-50 /HPF (<20); Urine Culture Reflex Order REFLEXED; Urine Yeast FEW (NONE SEEN)
[2018-03-05 18:34] LABS: Urine Blood 1+ (NEG); Urine Glucose NEGATIVE (NEG); Urine Protein 2+ (NEG); Urine Specific Gravity 1.025 (1.005-1.030)
--- NOTE | 2018-03-05 20:01 | EDPHYS ---
Physician Documentation [facility] Name: Christie Solitario Age: 67 yrs Sex: Female : 1950 Arrival Date: 03/05/2018 Time: 15:23 Bed 23 Private MD: ED Physician Pedro Shukla HPI: 03/05 19:57 This 67 yrs old Female presents to ER via Ambulatory with complaints of Back gs Pain. 19:57 The patient presents with pain that is acute. The symptoms are located in the low back. gs Onset: The symptoms/episode began/occurred 2 day(s) ago. The pain does not radiate. Associated signs and symptoms: Pertinent negatives: chest pain, constipation, fever. The problem was sustained from unknown cause. Modifying factors: the patient symptoms are aggravated by movement. Severity of symptoms: At their worst the symptoms were moderate, in the emergency department the symptoms are unchanged. 19:57 The patient has experienced similar episodes in the past, a few times. gs Historical: - Allergies: 15:38 No Known Allergies; tw2 - Home Meds: 15:38 pantoprazole 40 mg oral TbEC 1 tab once daily [Active]; sucralfate 1 gram Oral tab 1 tw2 tab 2 times per day [Active]; furosemide 20 mg Oral tab 1 tab once daily [Active]; sertraline 50 mg oral tab 1 tab once daily [Active]; ferrous sulfate 325 mg (65 mg iron) Oral tab [Active]; rifaximin oral 550 mg oral 1 tab [Active]; amlodipine 5 mg tab 1 tab once daily [Active]; metoprolol tartrate 50 mg Oral tab 1 tab once daily [Active]; loratadine 10 mg oral tab 1 tab once daily [Active]; levothyroxine 50 mcg tab 1 tab once daily [Active]; spironolactone 50 mg Oral tab 1 tab once daily [Active]; - PMHx: 15:38 Cirrhosis; Diabetes - NIDDM; Hernia; Hypertension; tw2 - PSHx: 15:38 stent in gall bladder; tw2 - Immunization history:: Adult Immunizations up to date. - Social history:: Smoking status: Patient/guardian denies using tobacco. ROS: 19:57 All other systems are negative. gs Exam: 19:57 Head/Face: Normocephalic, atraumatic. Eyes: Pupils equal round and reactive to light, gs extra-ocular motions intact. Lids and lashes normal. Conjunctiva and sclera are non-icteric and not injected. Cornea within normal limits. Periorbital areas with no swelling, redness, or edema. ENT: Nares patent. No nasal discharge, no septal abnormalities noted. Tympanic membranes are normal and external auditory canals are clear. Oropharynx with no redness, swelling, or masses, exudates, or evidence of obstruction, uvula midline. Mucous membranes moist. Neck: Trachea midline, no thyromegaly or masses palpated, and no cervical lymphadenopathy. Supple, full range of motion without nuchal rigidity, or vertebral point tenderness. No Meningismus. Chest/axilla: Normal chest wall appearance and motion. Nontender with no deformity. No lesions are appreciated. Cardiovascular: Regular rate and rhythm with a normal S1 and S2. No gallops, murmurs, or rubs. Normal PMI, no JVD. No pulse deficits. Respiratory: Lungs have equal breath sounds bilaterally, clear to auscultation and percussion. No rales, rhonchi or wheezes noted. No increased work of breathing, no retractions or nasal flaring. Back: No spinal tenderness. No costovertebral tenderness. Full range of motion. Skin: Warm, dry with normal turgor. Normal color with no rashes, no lesions, and no evidence of cellulitis. MS/ Extremity: Pulses equal, no cyanosis. Neurovascular intact. Full, normal range of motion. Neuro: Awake and alert, GCS 15, oriented to person, place, time, and situation. Cranial nerves II-XII grossly intact. Motor strength 5/5 in all extremities. Sensory grossly intact. Cerebellar exam normal. Normal gait. 19:57 Constitutional: The patient appears alert, awake. 19:57 Abdomen/GI: Inspection: distension, that is mild, Palpation: mild abdominal tenderness, in all quadrants, rebound tenderness, is not appreciated. Vital Signs: 15:34 BP 139 / 71; Pulse 79; Resp 17; Temp 98.4(TE); Pulse Ox 98% on R/A; Weight 64.41 kg tw2 (R); Height 5 ft. 2 in. (157.48 cm); Pain 8/10; 17:45 BP 144 / 71; Pulse 77; Resp 17; Pulse Ox 95% on R/A; rk2 19:29 BP 182 / 88; Pulse 69; Resp 18; rk2 20:11 BP 153 / 86; Pulse 87; Resp 17; rk2 15:34 Body Mass Index 25.97 (64.41 kg, 157.48 cm) tw2 MDM: 16:21 Patient medically screened. 19:57 Differential diagnosis: Abdominal Aortic Aneurysm Pyelonephritis. Data reviewed: vital gs signs, nurses notes. ED course: reviewed records bowel edema and pleural effusion old chronic from cirrhosis, will discharge on abx for urinary tract. 03/05 16:21 Order name: Basic Metabolic Panel 03/05 16:21 Order name: CBC with Diff 03/05 16:21 Order name: Hepatic Function 03/05 16:21 Order name: Lipase 03/05 16:21 Order name: Urine Microscopic Only; Complete Time: 19:43 03/05 16:22 Order name: Basic Metabolic Panel; Complete Time: 19:43 [facility] 03/05 16:21 Order name: IV Saline Lock; Complete Time: 17:05 03/05 16:21 Order name: CT Stone Protocol; Complete Time: 17:08 03/05 16:22 Order name: CBC with Automated Diff; Complete Time: 19:43 [facility] 03/05 16:22 Order name: Liver (Hepatic) Function; Complete Time: 19:43 [facility] 03/05 16:22 Order name: Lipase; Complete Time: 19:43 [facility] 03/05 18:16 Order name: Urine Dipstick--Ancillary (enter results) 03/05 18:16 Order name: Urine Dipstick-Ancillary; Complete Time: 19:43 [facility] 03/05 18:18 Order name: Urine Culture [facility] 03/05 16:21 Order name: Labs collected and sent; Complete Time: 17:05 03/05 16:21 Order name: Urine Dipstick-Ancillary (obtain specimen); Complete Time: 16:50 gs Administered Medications: No medications were administered Disposition: 03/05/18 20:00 Discharged to Home. Impression: Low back pain, Cystitis. - Condition is Stable. - Discharge Instructions: Back Pain, Adult, Urinary Tract Infection. - Prescriptions for Keflex 500 mg Oral Capsule - take 1 capsule by ORAL route every 8 hours for 10 days; 30 capsule. - Medication Reconciliation Form, Thank You Letter, Antibiotic Education, Prescription Opioid Use form. - Follow up: Private Physician; When: 2 - 3 days; Reason: Re-evaluation by your physician. Signatures: Dispatcher [employer] Miracle Beyer, RN RN tw2 Pedro Shukla MD MD gs Mariam Gan RN RN rk2
--- NOTE | 2018-03-05 20:01 | ER ---
Nurse's Notes [facility] Name: Christie Solitario Age: 67 yrs Sex: Female : 1950 Arrival Date: 03/05/2018 Time: 15:23 Bed 23 Private MD: Diagnosis: Low back pain;Cystitis Presentation: 03/05 15:33 Presenting complaint: Patient states: i have a pain in my back that started yesterday tw2 and it is constantly there, constipation as well, i have hernias. Transition of care: patient was not received from another setting of care. Onset of symptoms was March 05, 2018. Initial Sepsis Screen: Does the patient meet any 2 criteria? No. Patient's initial sepsis screen is negative. Does the patient have a suspected source of infection? No. Patient's initial sepsis screen is negative. Care prior to arrival: None. 15:33 Method Of Arrival: Ambulatory tw2 15:33 Acuity: JM 3 tw2 Historical: - Allergies: 15:38 No Known Allergies; tw2 - Home Meds: 15:38 pantoprazole 40 mg oral TbEC 1 tab once daily [Active]; sucralfate 1 gram Oral tab 1 tw2 tab 2 times per day [Active]; furosemide 20 mg Oral tab 1 tab once daily [Active]; sertraline 50 mg oral tab 1 tab once daily [Active]; ferrous sulfate 325 mg (65 mg iron) Oral tab [Active]; rifaximin oral 550 mg oral 1 tab [Active]; amlodipine 5 mg tab 1 tab once daily [Active]; metoprolol tartrate 50 mg Oral tab 1 tab once daily [Active]; loratadine 10 mg oral tab 1 tab once daily [Active]; levothyroxine 50 mcg tab 1 tab once daily [Active]; spironolactone 50 mg Oral tab 1 tab once daily [Active]; - PMHx: 15:38 Cirrhosis; Diabetes - NIDDM; Hernia; Hypertension; tw2 - PSHx: 15:38 stent in gall bladder; tw2 - Immunization history:: Adult Immunizations up to date. - Social history:: Smoking status: Patient/guardian denies using tobacco. Screenin:59 Abuse screen: Denies threats or abuse. Nutritional screening: No deficits noted. tl3 Tuberculosis screening: No symptoms or risk factors identified. Fall Risk None identified. Assessment: 15:59 General: Appears uncomfortable, well groomed, well developed, well nourished, Behavior tl3 is calm, cooperative, appropriate for age. Pain: Complains of pain in lumbar area Pain currently is 8 out of 10 on a pain scale. Neuro: Level of Consciousness is awake, alert, obeys commands, Oriented to person, place, time, situation, Appropriate for age. Cardiovascular: Heart tones S1 S2 present. Respiratory: No deficits noted. Airway is patent Trachea midline Respiratory effort is even, unlabored, Respiratory pattern is regular, symmetrical. GI: No signs and/or symptoms were reported involving the gastrointestinal system. : No signs and/or symptoms were reported regarding the genitourinary system. EENT: No signs and/or symptoms were reported regarding the EENT system. Derm: No signs and/or symptoms reported regarding the dermatologic system. Musculoskeletal: Reports pain in lumbar area. Musculoskeletal: Reports since two weeks, has gotten worse yesterday and today. 17:00 Reassessment: Pt. resting in room \T\ this time, appears to be in no obvious distress... rk2 no needs voiced \T\ this time. 18:00 Reassessment: Pt. resting in room, appears to be in no obvious distress. No needs rk2 voiced \T\ this time. 19:30 Reassessment: Pt. resting in room, c/o lower back pain. Provider notified. Pt. has rk2 family \T\ bedside. No other needs voiced. Vital Signs: 15:34 BP 139 / 71; Pulse 79; Resp 17; Temp 98.4(TE); Pulse Ox 98% on R/A; Weight 64.41 kg tw2 (R); Height 5 ft. 2 in. (157.48 cm); Pain 8/10; 17:45 BP 144 / 71; Pulse 77; Resp 17; Pulse Ox 95% on R/A; rk2 19:29 BP 182 / 88; Pulse 69; Resp 18; rk2 20:11 BP 153 / 86; Pulse 87; Resp 17; rk2 15:34 Body Mass Index 25.97 (64.41 kg, 157.48 cm) tw2 ED Course: 15:23 Patient arrived in ED. tw3 15:34 Triage completed. tw2 15:35 Arm band placed on. tw2 15:48 [place], Yancy, BAUDILIO is Primary Nurse. tl3 15:49 Pedro Shukla MD is Attending Physician. 15:59 Patient has correct armband on for positive identification. Bed in low position. Call tl3 light in reach. Side rails up X 1. Warm blanket given. 15:59 No provider procedures requiring assistance completed. tl3 16:05 Primary Nurse role handed off by Yancy Mcintosh, BAUDILIO 16:05 Carolyn Burkett RN is Primary Nurse. sv 16:45 Yancy Mcintosh, RN is Primary Nurse. tl3 16:50 Patient moved to [place] via wheelchair. nj 16:50 Urine Microscopic Only Sent. tl3 16:52 CT completed. Patient tolerated procedure well. Patient moved back from [place]. or 16:53 CT Stone Protocol In Process Unspecified. EDMS 17:06 Basic Metabolic Panel Sent. rk2 17:07 CBC with Diff Sent. rk2 17:07 Hepatic Function Sent. rk2 17:07 Lipase Sent. rk2 20:12 IV discontinued. rk2 Administered Medications: No medications were administered Outcome: 20:00 Discharge ordered by . gs 20:12 Discharged to [facility] 20:12 Condition: good 20:12 Discharge instructions given to patient, Prescriptions given X 1. 20:16 Patient left the ED. rk2 Addendum: 03/09/2018 08:45 Addendum: Culture Results: Positive urine culture. Bacteria is resistant to, has i w intermediate sensitivity, or is not tested against prescribed antibiotics. Report given to CARIDAD for further evaluation and then to equipment tester for follow up with patient. Phone call Attempt #1 pt still having UTI symptoms, called in Macrobid 100 mg PO BID X 7 days, #14, no refills, called in to [facility]. Signatures: Dispatcher [employer] EDNM Carolyn Burkett, Emy Kwan RN, RN RN Miracle Riggins RN RN tw2 Seth Martinez Tia tw3 Pedro Shukla MD MD Mariam Gan RN RN rk2 Yancy Mcintosh, BAUDILIO RN tl3
[2018-03-05 20:21] VITALS: TEMP 98.4
[2018-03-05 20:22] VITALS: O2SAT 95
[2018-03-05 20:24] VITALS: BP 153/86
== END 2018-03-05 20:16 | disposition home or self-care (01) ==
LOC: ER 15:22
DX: N30.90 Cystitis, unspecified without hematuria (principal); I10 Essential (primary) hypertension; E11.9 Type 2 diabetes mellitus without complications; K74.60 Unspecified cirrhosis of liver
CPT/HCPCS: 36415; 74176; 76377; 80048; 80076; 81003; 81015; 83690; 85025; 87077; 87086; 87088; 87186; 99284

== ENCOUNTER 2019-02-12 17:22 | Emergency (ER) | payer OTHER ==
--- OUTSIDE RECORDS SUMMARY | 2019-02-12 17:26 | XMS REPORT | Clinical Summary ---
:1950 Author Organization [facility] Address [address] [place] [address] Care Team Providers Name Role Phone Gianna Batista MD Primary Care Provider Allergies No Known Allergies Medications Medication Sig Dispensed Refills Start End Date Status Date levothyroxine Take 50 mcg by 0 Active (SYNTHROID, mouth Every 7 LEVOTHROID) 50 MCG morning on an tablet empty stomach . HUMULIN 70/30 100 Inject 40 Units 0 Active unit/mL (70-30) subcutaneously 2 7 injection (two) times daily before meals . amLODIPine Take 5 mg by mouth 0 Active (NORVASC) 5 MG daily. tablet metoprolol Take 50 mg by 0 Active (TOPROL-XL) 50 MG mouth daily. 24 hr tablet rifAXIMin 550 mg Take 550 mg by 0 Active Tab mouth 2 (two) times daily. traMADol (ULTRAM) Take 50 mg by 0 Active 50 mg tablet mouth every 6 (six) hours as needed for Pain. ferrous sulfate Take 1 tablet by 0 Active (IRON, FERROUS mouth daily . SULFATE,) 325 (65 FE) MG tablet VICTOZA 3-JAX 0.6 Patient does not 0 Active mg/0.1 mL (18 mg/3 recall dose. 8 mL) PnIj baclofen 5 mg Tab Take 1 tablet by 0 Active mouth 3 (three) 8 times daily as needed. sucralfate Take 1 g by mouth 0 Active (CARAFATE) 1 gram 3 (three) times tablet daily before meals. loratadine Take 10 mg by 0 Active (CLARITIN) 10 mg mouth daily. tablet sertraline (ZOLOFT) Take 1 tablet by 1 Active 50 MG tablet mouth daily. 8 pantoprazole Take 40 mg by 0 Active (PROTONIX) 40 MG mouth daily. tablet magnesium oxide Take 1 tablet (400 90 tablet 3 11/15/19 Active (MAG-OX) 400 mg mg total) by mouth 9 20 (241.3 mg 3 (three) times magnesium) tablet daily. ergocalciferol Take 1 capsule 4 capsule 11 11/15/19 Active (VITAMIN D2) 50,000 (50,000 Units 9 20 unit total) by mouth capsuleIndications: once a week. Osteopenia, unspecified location sucralfate 0 10/02/20 Discontinued (CARAFATE) 1 gram 7 18 tablet pantoprazole Take 40 mg by 0 10/02/20 Discontinued (PROTONIX) 40 MG mouth 2 (two) 18 tablet times daily. mesalamine (LIALDA) Take 1,200 mg by 0 10/02/20 Discontinued 1.2 gram EC tablet mouth daily with 18 breakfast. spironolactone Take 1 tablet (50 30 tablet 3 03/28/20 Discontinued (ALDACTONE) 50 MG mg total) by mouth 7 18 tablet daily. furosemide (LASIX) TAKE 1 TABLET(20 30 tablet 0 03/06/20 Discontinued 20 MG tablet MG) BY MOUTH DAILY 8 18 rifAXIMin 550 mg Take 1 tablet (550 60 tablet 6 10/02/20 Discontinued TabIndications: mg total) by mouth 8 18 Portal hypertension 2 (two) times (HCC) daily. furosemide (LASIX) TAKE 1 TABLET(20 30 tablet 0 04/17/20 Discontinued 20 MG tablet MG) BY MOUTH DAILY 8 18 spironolactone TAKE 1 TABLET(50 30 tablet 0 05/12/20 Discontinued (ALDACTONE) 50 MG MG) BY MOUTH DAILY 8 18 tablet furosemide (LASIX) TAKE 1 TABLET(20 30 tablet 0 10/02/20 Discontinued 20 MG tablet MG) BY MOUTH DAILY 8 18 furosemide (LASIX) TAKE 1 TABLET(20 30 tablet 0 10/02/20 Discontinued 20 MG tablet MG) BY MOUTH DAILY 8 18 spironolactone TAKE 1 TABLET(50 30 tablet 0 10/02/20 Discontinued (ALDACTONE) 50 MG MG) BY MOUTH DAILY 8 18 tablet furosemide (LASIX) TAKE 1 TABLET(20 30 tablet 0 10/02/20 Discontinued 20 MG tablet MG) BY MOUTH DAILY 8 18 levoFLOXacin Take 1 tablet (750 10 tablet 0 09/14/20 (LEVAQUIN) 750 MG mg total) by mouth 8 18 tabletIndications: daily for 10 days. Cirrhosis of liver with ascites, unspecified hepatic cirrhosis type (HCC), Umbilical hernia without obstruction and without gangrene Active Problems Problem Noted Date Pre-transplant evaluation for chronic liver disease 10/07/2018 Last Assessment & Plan: Seen by cardiology and cleared, needs f/u for lung lesion Umbilical hernia without obstruction and without gangrene 09/05/2018 Last Assessment & Plan: Umbilical hernia with ascites, no leakage and hernia is easily reducible. Mild discoloration of overlying skin. Elevated random blood glucose level 09/05/2018 Portal vein thrombosis 09/05/2018 History of pleural effusion 09/05/2018 Iron deficiency anemia 09/19/2017 Pulmonary nodule 08/30/2017 Last Assessment & Plan: 3mm pulmonary nodule. Requires follow up with medication assistant prior to surgery. 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 F/u with hepatology. Portal hypertension 10/19/2014 Last Assessment & Plan: Portal hypertension with evidence by ascites, jaundice, varices, and hepatic encephalopathy. Esophageal varices 10/19/2014 Last Assessment & Plan: [...] MRI in future after reviewing US Diabetes 10/19/2014 Last Assessment & Plan: Diabetes control per primary care. Metabolic syndrome 10/19/2014 Last Assessment & Plan: Metabolic Syndrome is a risk factor for the development of NAFLD and HCC. The patient exhibits features of metabolic syndrome including truncal obesity (Body mass index is 27.14 kg/(m^2).), hypertensio n, insulin resistance, and hyperlipidemia (on meds / triglyceride >150 / HDL < 40). We recommend the patient adhere to a [...] Encounters Date Type Specialty Care Team Description 01/29/2019 Telephone Transplant Chavo, Appointment (Scheduled Hepatology Nicole Chew 02/25 clinic appt w/spouse. Itinerary mailed.) 01/29/2019 Telephone Transplant Tena Alvarado Follow-up Hepatology F, RN 01/27/2019 Telephone Transplant Tena Alvarado Follow-up Hepatology F, RN 01/13/2019 Abstract Transplant Tena Alvarado Hepatology F, RN 01/03/2019 Abstract Transplant Tena Alvarado Hepatology F, RN 01/02/2019 Telephone Transplant Tena Alvarado Follow-up Hepatology F, RN 12/17/2018 Surgery Mod[place] Geiger, R & L CATH / CORONARY ANGIOS / PCI 12/17/2018 Hospital Encounter [place] Geiger, [place] coma scale total score 13-15, unspecified coma timing 12/17/2018 Orders Only General Internal Medicine 11/28/2018 Hospital Encounter Radiology Alvarez Ravinder Fatty liver disease, nonalcoholic; MD Nick Pre-transplant evaluation for liver transplant 11/28/2018 Hospital Encounter Radiology [place] Ravinder Fatty liver disease, nonalcoholic; MD Nick Pre-transplant evaluation for liver transplant; Screening for malignant neoplasm 11/28/2018 Hospital Encounter Radiology Alvarez Ravinder Nonalcoholic steatohepatitis; MD Nick Other ascites 11/28/2018 Orders Only Transplant Ravinder Pino Fatty liver disease, nonalcoholic; Hepatology MD Nick Pre-transplant evaluation for liver transplant; Jose Alfredo Golden Aba Alcoholic cirrhosis of liver with ascites (HCC); MD Karly Pulmonary nodule; Umbilical hernia without obstruction and without gangrene; Pre-transplant evaluation for chronic liver disease 11/28/2018 Follow-Up Transplant Ravinder Pino Cirrhosis of liver Hepatology MD Nick with ascites, unspecified hepatic cirrhosis type (HCC) 11/28/2018 Abstract Transplant Christiano Tena Hepatology F, RN 11/28/2018 Telephone Transplant ChristianoTena Hepatology F, RN 11/28/2018 Orders Only Transplant Tena Alvarado Other ascites (Primary Dx ); Hepatology F, RN Nonalcoholic steatohepatitis 11/25/2018 Orders Only Cardiology Serge Moreno MD 11/15/2018 Orders Only Transplant Tena Alvarado Osteopenia, Hepatology F, RN unspecified location (Primary Dx) 11/15/2018 Orders Only Transplant Tena Alvarado Pre-transplant evaluation for liver transplant (Primary Dx); Hepatology F, RN Fatty liver disease, nonalcoholic; Screening for malignant neoplasm 11/15/2018 Telephone Transplant Alla Tony (M. Hepatology Nicole Chew Returning pts call.) 10/30/2018 Telephone Transplant Christiano Tena Follow-up Hepatology F, RN 10/21/2018 Abstract Transplant Samaria Rubin Hepatology 10/14/2018 Documentation Transplant Kayden Booth, Hepatology [facility] 10/10/2018 Hospital Encounter Piotr Mcdonnell, Pre-transplant evaluation for liver transplant 10/10/2018 Hospital Encounter Piotr Mcdonnell, Pre-transplant evaluation for liver transplant 10/10/2018 Hospital Encounter Piotr Mcdonnell, Pre-transplant MD evaluation for liver transplant 10/10/2018 Hospital Encounter Radiology Piotr Mcdonnell, Pre-transplant evaluation for liver transplant 10/10/2018 Evaluation Transplant Piotr Mcdonnell, Hepatology Elke Munoz 10/10/2018 Social Work Transplant Piotr Mcdonnell, Hepatology Pavel Conde, [facility] 10/10/2018 Documentation Transplant Evita, Hepatology Corey Villarreal, RN 10/09/2018 Telephone Transplant Chavo Liver Transplant Hepatjacky Chew Pre-evaluation (LVM. Calling to confirm 10/10 eval appts.) 10/07/2018 [facility] Charge Visit Transplant Ravinder Pino Hepatjacky Romero MD Provider, [facility] Registry Generic 10/07/2018 Documentation Transplant Samaria Rubin R Hepatology 10/04/2018 Documentation Transplant Yogi Hepatology Meenu Greenfield RN 10/02/2018 Evaluation Transplant Piotr Mcdonnell, Pre-transplant evaluation for chronic liver disease; Hepatology Pulmonary nodule; Ravinder Pino Portal hypertension MD Nick 10/02/2018 Evaluation Transplant Piotr Mcdonnell, Pre-transplant Hepatology evaluation for liver Law, Samaria R transplant 10/02/2018 Emergency Emergency Medicine Adam Durham Traumatic injury of head, initial encounter (Primary Dx); MD Brandin Concussion without loss of consciousness, initial encounter; Fall, initial encounter 10/02/2018 Orders Only Transplant Piotr Mcdonnell, Pre-transplant Hepatology evaluation for liver transplant 10/02/2018 Travel 10/01/2018 Telephone Transplant Chavo Liver Transplant Hepatjacky Chew Pre-evaluation (Confirmed eval appts w/spouse.) 09/17/2018 Telephone Transplant [facility] Liver Transplant Hepatjacky Chew Pre-evaluation (Scheduled 10/02 & 10/10 liver txp eval appts w/pt. Itinerary mailed.) 09/17/2018 Telephone Transplant [facility] Liver Transplant Hepatjacky Chew Pre-evaluation (LVM. Calling to schedule liver txp eval appts.) 09/13/2018 Hospital Encounter Radiology Piotr Mcdonnell, Cirrhosis of liver with ascites, unspecified hepatic cirrhosis type (HCC) 09/13/2018 Documentation Transplant Chavo, Hepatology Barbi 09/13/2018 Telephone Transplant Chavo, Liver Transplant Hepatology Barbi Pre-evaluation (LVM. Calling to inform pt she is approved for liver txp evaluaton scheduling will be completed once orders are signed.) 09/13/2018 Outside Orders Piotr Mcdonnell MD 09/12/2018 Telephone Transplant Chavo, Liver Transplant Hepatology Barbi Pre-evaluation (LVM. Calling to notify pt she has been approved for liver txp eval.) 09/11/2018 Documentation Transplant Chavo Hepatology Barbi 09/11/2018 Orders Only Transplant Tena Alvarado Pre-transplant Hepatology F RN evaluation for liver transplant (Primary Dx) 09/05/2018 Abstract Hepatology Talisha Galarza Cirrhosis of liver NILDA Garcia with ascites, unspecified hepatic cirrhosis type (HCC) (Primary Dx) 09/05/2018 Abstract Transplant Ravinder Pino Hepatology MD Nick 09/05/2018 Telephone Hepatology Talisha Galarza PA 09/04/2018 Office Visit Hepatology Piotr Mcdonnell, Cirrhosis of liver with ascites, unspecified hepatic cirrhosis type (HCC) (Primary Dx); Umbilical hernia without obstruction and without gangrene; Portal hypertension; Bleeding esophageal varices, unspecified esophageal varices type (HCC); Non-alcoholic fatty liver disease; Type 2 diabetes mellitus with complication, 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); Screening for cancer; Metabolic syndrome; Immunity status testing; Other ascites; Pulmonary nodule; Elevated random blood glucose level; Portal vein thrombosis; History of pleural effusion 09/04/2018 Documentation Hepatology Lexi Rose PA-C 09/04/2018 Telephone Hepatology Wanda Nolan Critical Lab P RN 08/16/2018 Abstract HepatWanda Da Silva RN 06/12/2018 Refill Russ Diaz MD 05/12/2018 Refill Russ Diaz MD 04/24/2018 Refill HepatRuss Escalante MD 04/17/2018 Refill Hepatology Russ Burgos MD 03/28/2018 Refill Hepatology Russ Burgos MD 03/06/2018 Refill Hepatology Russ Burgos MD after 02/11/2018 Family History Medical History Relation Name Comments Diabetes Brother Diabetes Brother Diabetes Mother Hypertension Mother Diabetes Sister Thyroid disease Sister Relation Name Status Comments Brother Brother Mother Sister Sister Social History Tobacco Use Types Packs/Day Years Used Date Never Smoker Smokeless Tobacco: Never Used Tobacco Cessation: Counseling Given: No Alcohol Use Drinks/Week oz/Week Comments No Sex Assigned at Date Recorded Not on file Job Start Date Occupation Industry Not on file Not on file Not on file Travel History Travel Start Travel End No recent travel history available. Last Filed Vital Signs Vital Sign Reading Time Taken Blood Pressure 128/60 12/17/2018 3:00 [employer] Pulse 65 12/17/2018 3:00 [employer] Temperature 36.7 C (98.1 F) 12/17/2018 8:10 AM [employer] Respiratory Rate 16 12/17/2018 3:00 PM [employer] Oxygen Saturation 94% 12/17/2018 1:44 PM [employer] Inhaled Oxygen Concentration - - Weight 73.5 kg (162 lb) 12/17/2018 8:10 AM [employer] Height 157.5 cm (5' 2") 12/17/2018 8:10 AM [employer] Body Mass Index 29.63 12/17/2018 8:10 AM [employer] Plan of Treatment Date Type Specialty Care Team Description 02/25/2019 Follow-Up Transplant Hepatology Procedures Procedure Name Priority Date/Time Associated Comments Diagnosis VASCULAR DIAGRAM 01/09/2019 3:53 -SCAN PM [employer] VASCULAR DIAGRAM 01/09/2019 3:53 -SCAN [employer] CARDIAC CATH REPORT - 12/31/2018 9:40 SCAN AM [employer] TRANSFUSION SERVICE 12/18/2018 6:03 REPORT - SCAN PM [employer] CBC (HEMOGRAM ONLY) Routine 12/17/2018 2:08 Results for this PM [employer] procedure are in the results section. R & L CATH / CORONARY 12/17/2018 11:01 Pulmonary heart ANGIOS / PCI AM [employer] disease (HCC) Chronic renal disease, stage III (HCC) Essential hypertension, benign Case Notes (3) CASE POP6 ECG 12-LEAD Routine 12/17/2018 9:42 AM [employer] Procedure Note - Interface, External Ris In - 12/17/2018 9:47 AM [employer] Ventricular Rate 65 BPM Atrial Rate 65 BPM P-R Interval 122 ms QRS Duration 72 ms Q-T Interval 420 ms QTC Calculation(Bazett) 436 ms P [place] 44 degrees R [place] 18 degrees T [place] 11 degrees Normal sinus rhythm Normal ECG No previous ECGs available ECG 12-LEAD Routine 12/17/2018 9:42 Results for AM [employer] this procedure are in the results section. TYPE AND SCREEN, Routine 12/17/2018 9:18 Results for AUTOMATED AM [employer] this procedure are in the results section. CBC (HEMOGRAM ONLY) Routine 12/17/2018 9:18 Results for AM [employer] this procedure are in the results section. COMPREHENSIVE METABOLIC Routine 12/17/2018 9:18 Results for PANEL AM [employer] this procedure are in the results section. BODY FLUID CELL COUNT Routine 11/28/2018 9:38 Cirrhosis of liver Results for WITH DIFFERENTIAL PM [employer] with ascites, this procedure unspecified hepatic are in the cirrhosis type results (HCC) section. BODY FLUID CULTURE + Routine 11/28/2018 9:38 Cirrhosis of liver Results for GRAM STAIN PM [employer] with ascites, this procedure unspecified hepatic are in the cirrhosis type results (HCC) section. US ABDOMEN COMPLETE Routine 11/28/2018 8:40 Fatty liver Results for PM [employer] disease, this procedure nonalcoholic are in the Pre-transplant results evaluation for section. liver transplant Screening for malignant neoplasm US PARACENTESIS Routine 11/28/2018 7:40 Nonalcoholic Results for PM [employer] steatohepatitis this procedure Other ascites are in the results section. XR CHEST 2 VIEWS Routine 11/28/2018 2:50 Fatty liver Results for PM [employer] disease, this procedure nonalcoholic are in the Pre-transplant results evaluation for section. liver transplant PLATELET COUNT STAT 11/28/2018 2:36 Results for PM [employer] this procedure are in the results section. PT/APTT STAT 11/28/2018 2:36 Results for PM [employer] this procedure are in the results section. URINALYSIS W/ REFLEX Routine 11/28/2018 11:49 Fatty liver Results for URINE CULTURE AM [employer] disease, this procedure nonalcoholic are in the Pre-transplant results evaluation for section. liver transplant DRUG SCREEN, URINE, Routine 11/28/2018 11:49 Fatty liver TRANSPLANT AM [employer] disease, nonalcoholic Pre-transplant evaluation for liver transplant T SPOT TB Routine 11/28/2018 11:38 Fatty liver Results for AM [employer] disease, this procedure nonalcoholic are in the Pre-transplant results evaluation for section. liver transplant TRANSFUSION SERVICE 10/30/2018 2:40 REPORT - SCAN PM [employer] MR ABDOMEN WITH/WITHOUT Routine 10/10/2018 1:35 Pre-transplant Results for IV CONTRAST PM [employer] evaluation for this procedure liver transplant are in the results section. XR DXA BONE DENSITY Routine 10/10/2018 12:39 Pre-transplant Results for STUDY PM [employer] evaluation for this procedure liver transplant are in the results section. XR CHEST 2 VIEWS Routine 10/10/2018 12:30 Pre-transplant Results for PM [employer] evaluation for this procedure liver transplant are in the results section. XR MANDIBLE MIN 4 VIEWS Routine 10/10/2018 12:25 Pre-transplant Results for PM [employer] evaluation for this procedure liver transplant are in the results section. URINALYSIS W/ Routine 10/02/2018 2:39 Pre-transplant Results for MICROSCOPIC PM [employer] evaluation for this procedure liver transplant are in the results section. SCREEN, URINE Routine 10/02/2018 2:39 Pre-transplant Results for PM [employer] evaluation for this procedure liver transplant are in the results section. CBC W/PLT COUNT & AUTO Routine 10/02/2018 2:34 Pre-transplant Results for DIFFERENTIAL PM [employer] evaluation for this procedure liver transplant are in the results section. PRABHJOT TITER AND PATTERN Routine 10/02/2018 2:34 Pre-transplant Results for PM [employer] evaluation for this procedure liver transplant are in the results section. ALPHA-1 ANTITRYPSIN Routine 10/02/2018 2:34 Pre-transplant Results for MUTATION ANALYSIS PM [employer] evaluation for this procedure liver transplant are in the results section. [id number]\\, Routine 10/02/2018 2:34 Pre-transplant Results for SERUM PM [employer] evaluation for this procedure liver transplant are in the results section. RPR Routine 10/02/2018 2:34 Pre-transplant Results for PM [employer] evaluation for this procedure liver transplant are in the results section. EBV ANTIBODY, IGM Routine 10/02/2018 2:34 Pre-transplant Results for PM [employer] evaluation for this procedure liver transplant are in the results section. EBV ANTIBODY, IGG Routine 10/02/2018 2:34 Pre-transplant Results for PM [employer] evaluation for this procedure liver transplant are in the results section. CYTOMEGALOVIRUS Routine 10/02/2018 2:34 Pre-transplant Results for ANTIBODY, IGM PM [employer] evaluation for this procedure liver transplant are in the results section. CYTOMEGALOVIRUS Routine 10/02/2018 2:34 Pre-transplant Results for ANTIBODY, IGG PM [employer] evaluation for this procedure liver transplant are in the results section. HIV-1 ANTIGEN WITH Routine 10/02/2018 2:34 Pre-transplant Results for HIV-1/2 ANTIBODY PM [employer] evaluation for this procedure liver transplant are in the results section. HEPATITIS C ANTIBODY Routine 10/02/2018 2:34 Pre-transplant Results for PM [employer] evaluation for this procedure liver transplant are in the results section. HEPATITIS B CORE Routine 10/02/2018 2:34 Pre-transplant Results for ANTIBODY, IGM PM [employer] evaluation for this procedure liver transplant are in the results section. HEPATITIS B CORE Routine 10/02/2018 2:34 Pre-transplant Results for ANTIBODY, TOTAL PM [employer] evaluation for this procedure liver transplant are in the results section. HEPATITIS B SURFACE Routine 10/02/2018 2:34 Pre-transplant Results for ANTIBODY PM [employer] evaluation for this procedure liver transplant are in the results section. HEPATITIS B SURFACE Routine 10/02/2018 2:34 Pre-transplant Results for ANTIGEN PM [employer] evaluation for this procedure liver transplant are in the results section. HEPATITIS A ANTIBODY, Routine 10/02/2018 2:34 Pre-transplant Results for IGG PM [employer] evaluation for this procedure liver transplant are in the results section. T4 Routine 10/02/2018 2:34 Pre-transplant Results for PM [employer] evaluation for this procedure liver transplant are in the results section. T3 Routine 10/02/2018 2:34 Pre-transplant Results for PM [employer] evaluation for this procedure liver transplant are in the results section. TSH Routine 10/02/2018 2:34 Pre-transplant Results for PM [employer] evaluation for this procedure liver transplant are in the results section. URIC ACID Routine 10/02/2018 2:34 Pre-transplant Results for PM [employer] evaluation for this procedure liver transplant are in the results section. ZINC Routine 10/02/2018 2:34 Pre-transplant Results for PM [employer] evaluation for this procedure liver transplant are in the results section. CARCINOEMBRYONIC Routine 10/02/2018 2:34 Pre-transplant Results for ANTIGEN (CEA) PM [employer] evaluation for this procedure liver transplant are in the results section. CARBOHYDRATE ANTIGEN Routine 10/02/2018 2:34 Pre-transplant Results for 19-9 (CA 19-9) PM [employer] evaluation for this procedure liver transplant are in the results section. ALPHA FETOPROTEIN Routine 10/02/2018 2:34 Pre-transplant Results for (AFP), TUMOR MARKER PM [employer] evaluation for this procedure liver transplant are in the results section. ETHANOL Routine 10/02/2018 2:34 Pre-transplant Results for PM [employer] evaluation for this procedure liver transplant are in the results section. HEMOGLOBIN A1C AP Routine 10/02/2018 2:34 Pre-transplant Results for PM [employer] evaluation for this procedure liver transplant are in the results section. LIPID PANEL Routine 10/02/2018 2:34 Pre-transplant Results for PM [employer] evaluation for this procedure liver transplant are in the results section. VITAMIN D, 25-HYDROXY Routine 10/02/2018 2:34 Pre-transplant Results for PM [employer] evaluation for this procedure liver transplant are in the results section. CERULOPLASMIN Routine 10/02/2018 2:34 Pre-transplant Results for PM [employer] evaluation for this procedure liver transplant are in the results section. FERRITIN Routine 10/02/2018 2:34 Pre-transplant Results for PM [employer] evaluation for this procedure liver transplant are in the results section. IRON, TIBC, % SAT. Routine 10/02/2018 2:34 Pre-transplant Results for (WITHOUT FERRITIN) PM [employer] evaluation for this procedure liver transplant are in the results section. TRANSFERRIN Routine 10/02/2018 2:34 Pre-transplant Results for PM [employer] evaluation for this procedure liver transplant are in the results section. ACTIN (SMOOTH MUSCLE) Routine 10/02/2018 2:34 Pre-transplant Results for ANTIBODY, IGG [employer] evaluation for this procedure liver transplant are in the results section. MITOCHONDRIA M2 Routine 10/02/2018 2:34 Pre-transplant Results for ANTIBODY (IGG) PM [employer] evaluation for this procedure liver transplant are in the results section. ANTI-NUCLEAR ANTIBODY Routine 10/02/2018 2:34 Pre-transplant Results for (PRABHJOT) PM [employer] evaluation for this procedure liver transplant are in the results section. CBC W/PLT COUNT & AUTO Routine 10/02/2018 2:34 Pre-transplant Results for DIFFERENTIAL [employer] evaluation for this procedure liver transplant are in the results section. APTT Routine 10/02/2018 2:34 Pre-transplant Results for PM [employer] evaluation for this procedure liver transplant are in the results section. PROTHROMBIN TIME/INR Routine 10/02/2018 2:34 Pre-transplant Results for PM [employer] evaluation for this procedure liver transplant are in the results section. PHOSPHORUS Routine 10/02/2018 2:34 Pre-transplant Results for PM [employer] evaluation for this procedure liver transplant are in the results section. MAGNESIUM Routine 10/02/2018 2:34 Pre-transplant Results for PM [employer] evaluation for this procedure liver transplant are in the results section. CALCIUM, IONIZED Routine 10/02/2018 2:34 Pre-transplant Results for PM [employer] evaluation for this procedure liver transplant are in the results section. GAMMA GLUTAMYL Routine 10/02/2018 2:34 Pre-transplant Results for TRANSFERASE (GGT) [employer] evaluation for this procedure liver transplant are in the results section. BILIRUBIN, DIRECT Routine 10/02/2018 2:34 Pre-transplant Results for PM [employer] evaluation for this procedure liver transplant are in the results section. COMPREHENSIVE METABOLIC Routine 10/02/2018 2:34 Pre-transplant Results for PANEL [employer] evaluation for this procedure liver transplant are in the results section. FIBRINOGEN Routine 10/02/2018 2:34 Pre-transplant Results for PM [employer] evaluation for this procedure liver transplant are in the results section. TYPE AND SCREEN, Routine 10/02/2018 2:19 Pre-transplant Results for AUTOMATED [employer] evaluation for this procedure liver transplant are in the results section. XR KNEE RIGHT 3 VIEWS STAT 10/02/2018 8:57 Results for AM [employer] this procedure are in the results section. CT MAXILLOFACIAL STAT 10/02/2018 8:50 Results for WITHOUT IV CONTRAST AM [employer] this procedure are in the results section. CT BRAIN WITHOUT IV STAT 10/02/2018 8:50 Results for CONTRAST AM [employer] this procedure are in the results section. MR ABDOMEN WITH/WITHOUT Routine 09/13/2018 1:15 Cirrhosis of liver Results for IV CONTRAST PM CDT with ascites, this procedure unspecified hepatic are in the cirrhosis type results (HCC) section. POCT-CREATININE Routine 09/13/2018 12:26 Results for PM CDT this procedure are in the results section. CBC W/PLT COUNT & AUTO Routine 09/04/2018 10:54 Cirrhosis of liver Results for DIFFERENTIAL AM CDT with ascites, this procedure unspecified hepatic are in the cirrhosis type results (HCC) section. ALPHA FETOPROTEIN Routine 09/04/2018 10:54 Cirrhosis of liver Results for (AFP), TUMOR MARKER AM CDT with ascites, this procedure unspecified hepatic are in the cirrhosis type results (HCC) section. PROTHROMBIN TIME/INR Routine 09/04/2018 10:54 Cirrhosis of liver Results for AM CDT with ascites, this procedure unspecified hepatic are in the cirrhosis type results (HCC) section. CBC W/PLT COUNT & AUTO Routine 09/04/2018 10:54 Cirrhosis of liver Results for DIFFERENTIAL AM CDT with ascites, this procedure unspecified hepatic are in the cirrhosis type results (HCC) section. HEPATIC FUNCTION PANEL Routine 09/04/2018 10:54 Cirrhosis of liver Results for AM CDT with ascites, this procedure unspecified hepatic are in the cirrhosis type results (HCC) section. BASIC METABOLIC PANEL Routine 09/04/2018 10:54 Cirrhosis of liver Results for (7) AM CDT with ascites, this procedure unspecified hepatic are in the cirrhosis type results (HCC) section. after 02/11/2018 Results VASCULAR DIAGRAM -SCAN (01/09/2019 3:53 [employer])Only the most recent of2 resultswithin the time period is included. Narrative Performed At CARDIAC CATH REPORT - SCAN (12/31/2018 9:40 [employer]) Narrative Performed At TRANSFUSION SERVICE REPORT - SCAN (12/18/2018 6:03 PM [employer])Only the most recent of2 resultswithin the time period is included. Narrative Performed At CBC (Hemogram only) (12/17/2018 2:08 PM [employer])Only the most recent of2 resultswithin the time period is included. WBC 2.9 (L) 3.5 - 10.5 K/L [facility] RBC 3.03 (L) 3.93 - 5.22 M/L [facility] Hemoglobin 7.5 (L) 11.2 - 15.7 GM/DL [facility] Hematocrit 24.2 (L) 34.1 - 44.9 % [facility] MCV 79.9 79.4 - 94.8 fL [facility] MCH 24.8 (L) 25.6 - 32.2 pg [facility] MCHC 31.0 (L) 32.2 - 35.5 GM/DL [facility] RDW 15.7 (H) 11.7 - 14.4 % [facility] Platelets 65 (L) 150 - 450 K/CU MM [facility] MPV 11.0 9.4 - 12.3 fL [facility] nRBC 0 0 - 0 /100 WBC [facility] Specimen Blood Performing Organization Address City/[facility] Cent[facility]ode Phone Number [facility] [address] [place] [id number] CENTER ECG 12 lead (12/17/2018 9:42 AM [employer]) Narrative Performed At Ventricular Rate 65 BPM GE MUSE Atrial Rate 65 BPM P-R Interval 122 ms QRS Duration 72 ms Q-T Interval 420 ms QTC Calculation(Bazett) 436 ms P [place] 44 degrees R [place] 18 degrees T [place] 11 degrees Normal sinus rhythm Normal ECG No previous ECGs available Confirmed by MD ANGELITO, EVELYN ([id number]) on 12/17/2018 3:03:09 PM Procedure Note Interface, External Ris In - 12/17/2018 3:03 PM [employer] Ventricular Rate 65 BPM Atrial Rate 65 BPM P-R Interval 122 ms QRS Duration 72 ms Q-T Interval 420 ms QTC Calculation(Bazett) 436 ms P [place] 44 degrees R [place] 18 degrees T [place] 11 degrees Normal sinus rhythm Normal ECG No previous ECGs available Confirmed by MD ANGELITO, EVELYN ([id number]) on 12/17/2018 3:03:09 PM Performing Organization Address City/[facility]out Phone Number GE MUSE Type and screen, automated (12/17/2018 9:18 AM [employer])Only the most recent of2 resultswithin the time period is included. ABO/RH AUTOMATED (BEAKER) O POSITIVE [facility] Ab Scrn NEGATIVE [facility] Specimen Blood Performing Organization Address City/[facility] Centercode Phone Number [address] [address] Comprehensive metabolic panel (12/17/2018 9:18 AM [employer])Only the most recent of2 resultswithin the time period is included. Protein, Total 7.2 6.0 - 8.3 gm/dL [facility] Albumin 3.3 (L) 3.5 - 5.0 g/dL [facility] Alkaline Phosphatase 91 40 - 150 U/L [facility] Total Bilirubin 1.0 0.2 - 1.2 mg/dL [facility] Sodium 138 136 - 145 meq/L [facility] Potassium 3.8 3.5 - 5.1 meq/L [facility] Chloride 105 98 - 107 meq/L [facility] CO2 27 22 - 29 meq/L [facility] BUN 12 7 - 21 mg/dL [facility] Creatinine 0.81 0.57 - 1.25 mg/dL [facility] Glucose 63 (L) 70 - 105 mg/dL [facility] Calcium 8.7 8.4 - 10.2 mg/dL [facility] AST 24 5 - 34 U/L [facility] ALT 12 6 - 55 U/L [facility] EGFR 70Comment: ESTIMATED GFR mL/min/1.73 sq m [facility] IS NOT ACCURATE [facility] CREATININE CLEARANCE IN PREDICTING GLOMERULAR FILTRATION RATE. ESTIMATED GFR IS NOT APPLICABLE FOR DIALYSIS PATIENTS. Specimen Blood Performing Organization Address City/[facility] Centercode Phone Number [facility] [address] [place] [address] CENTER Body fluid culture + gram stain (11/28/2018 9:38 PM [employer]) Result No growth [facility] Gram Stain Result <1+ WBCs [facility] Gram Stain Result No organisms seen [facility] Specimen Body Fluid - Ascites Performing Organization Address City/[facility] Centercode Phone Number [facility] [address] [place] [address] [place] Body fluid cell count with differential (11/28/2018 9:38 PM [employer]) Appearance Clear Clear [facility] Color Straw Colorless, Straw [facility] RBCs 178 (H) <=1 /cu mm [facility] Adjusted WBC Count 121 (H) <=5 /cu mm [facility] Lining Cells 0 <=1 /cu mm [facility] % Segs 17 % [facility] % Lymphs 23 % [facility] % Monos 60 % [facility] % Eos 0 % [facility] % Baso 0 % [facility] Container Body Fluid EDTA Tube [facility] Specimen Body Fluid - Ascites Performing Organization Address City/State/Zipcode Phone Number [facility] [address] [place] [address] [place] US abdomen complete (11/28/2018 8:40 PM [employer]) Narrative Performed At FINAL REPORT [facility] INDICATION: pretranslant evaluation, screening for malignant neoplasm COMPARISON: Abdominal ultrasound dated 12/22/2016. MRI of the abdomen dated 10/01/1918. TECHNIQUE:Real-time transabdominal yee scale and color Doppler ultrasound of the abdomen. FINDINGS: Liver: Size: 12.5cm. Echogenicity: Heterogeneous hepatic echotexture. Masses/lesions: There is a 1.7 x 1.5 x 1.6 cm right hepatic lobe cyst. Surface Nodularity: Present. Intrahepatic bile ducts: Normal. Common bile duct: 0.6 cm. MPV: 1.2cm. Gallbladder: Nonvisualized. Pancreas: Head and uncinate process: Not well seen. Body and tail: Not well-seen. Spleen: Size: 17.5cm. Echogenicity: Unremarkable. Right kidney: Size: 9.7 x 4.2 x 4.9 cm. Parenchyma: Mildly increased echogenicity. No cysts. No stones. Hydronephrosis: None. Left kidney: Size: 9.8 x 4.2 x 4.9 cm. Parenchyma: Mildly increased echogenicity. No cysts. No stones. Hydronephrosis: None. Ascites: Small volume intra-abdominal ascites. Regional Vasculature: The visible abdominal aorta, IVC and hepatic veins are patent. The aorta measures 1.8 cm proximally. Distal portion is not well seen secondary to poor acoustic windowing. Additional findings: Bilateral pleural effusions.. IMPRESSION: Morphologic changes of cirrhosis with sequela of portal hypertension including splenic megaly and small volume intra-abdominal ascites. Bilateral pleural effusions. Increased renal parenchymal echogenicity is consistent with medical renal disease. Right hepatic lobe cystic structure measuring up to 1.7 cm better evaluated on recent MRI of the abdomen. Signed: Taylor Miguel MD Report Verified Date/Time:11/28/2018 22:44:50 Reading Location: [address] Transitional Reading Room Procedure Note Interface, External Ris In - 11/28/2018 10:47 PM [employer] FINAL REPORT INDICATION: pretranslant evaluation, screening for malignant neoplasm COMPARISON: Abdominal ultrasound dated 12/22/2016. MRI of the abdomen dated 10/01/1918. TECHNIQUE: Real-time transabdominal yee scale and color Doppler ultrasound of the abdomen. FINDINGS: Liver: Size: 12.5cm. Echogenicity: Heterogeneous hepatic echotexture. Masses/lesions: There is a 1.7 x 1.5 x 1.6 cm right hepatic lobe cyst. Surface Nodularity: Present. Intrahepatic bile ducts: Normal. Common bile duct: 0.6 cm. MPV: 1.2cm. Gallbladder: Nonvisualized. Pancreas: Head and uncinate process: Not well seen. Body and tail: Not well-seen. Spleen: Size: 17.5cm. Echogenicity: Unremarkable. Right kidney: Size: 9.7 x 4.2 x 4.9 cm. Parenchyma: Mildly increased echogenicity. No cysts. No stones. Hydronephrosis: None. Left kidney: Size: 9.8 x 4.2 x 4.9 cm. Parenchyma: Mildly increased echogenicity. No cysts. No stones. Hydronephrosis: None. Ascites: Small volume intra-abdominal ascites. Regional Vasculature: The visible abdominal aorta, IVC and hepatic veins are patent. The aorta measures 1.8 cm proximally. Distal portion is not well seen secondary to poor acoustic windowing. Additional findings: Bilateral pleural effusions.. IMPRESSION: Morphologic changes of cirrhosis with sequela of portal hypertension including splenic megaly and small volume intra-abdominal ascites. Bilateral pleural effusions. Increased renal parenchymal echogenicity is consistent with medical renal disease. Right hepatic lobe cystic structure measuring up to 1.7 cm better evaluated on recent MRI of the abdomen. Signed: Taylor Miguel MD Report Verified Date/Time: 11/28/2018 22:44:50 Reading Location: [facility] [id number] Transitional Reading Room Performing Organization Address City/State/Zipcode Phone Number [facility] Ultrasound PARACENTESIS (11/28/2018 7:40 PM [employer]) Narrative Performed At FINAL REPORT [facility] PROCEDURE: Ultrasound-guided paracentesis. INDICATION: Ascites. DESCRIPTION: After obtaining informed written consent, ultrasound scan of the abdomen identified ascites in the right lower quadrant. The overlying skin was prepped and draped in the usual, sterile fashion and local 1% lidocaine anesthesia was administered. A 5 Burmese catheter was advanced into the peritoneal cavity. The bowel was very active, and care was taken not to advance the needle when bowel was immediately adjacent to the needle. After the initial stick, approximately 300 mL of fluid was returned, but intermittently the bowel would obstruct the catheter. Therefore, this catheter was removed, and a second 5 Burmese catheter was inserted. 1250 mL of clear yellow fluid was removed in total. The catheter was removed without immediate complication. Samples were sent for analysis. IMPRESSION: Uncomplicated ultrasound-guided paracentesis with 1250 mL of fluid removed. Signed: Maykel Flynn MD Report Verified Date/Time:11/28/2018 20:53:26 Reading Location: [facility] [id number] Ultrasound Reading Room Procedure Note Interface, External Ris In - 11/28/2018 8:55 PM [employer] FINAL REPORT PROCEDURE: Ultrasound-guided paracentesis. INDICATION: Ascites. DESCRIPTION: After obtaining informed written consent, ultrasound scan of the abdomen identified ascites in the right lower quadrant. The overlying skin was prepped and draped in the usual, sterile fashion and local 1% lidocaine anesthesia was administered. A 5 Burmese catheter was advanced into the peritoneal cavity. The bowel was very active, and care was taken not to advance the needle when bowel was immediately adjacent to the needle. After the initial stick, approximately 300 mL of fluid was returned, but intermittently the bowel would obstruct the catheter. Therefore, this catheter was removed, and a second 5 Burmese catheter was inserted. 1250 mL of clear yellow fluid was removed in total. The catheter was removed without immediate complication. Samples were sent for analysis. IMPRESSION: Uncomplicated ultrasound-guided paracentesis with 1250 mL of fluid removed. Signed: Maykel Flynn MD Report Verified Date/Time: 11/28/2018 20:53:26 Reading Location: [address] Ultrasound Reading Room Performing Organization Address City/State/Zipcode Phone Number [facility] XR chest 2 views (11/28/2018 2:50 PM [employer])Only the most recent of2 resultswithin the time period is included. Narrative Performed At FINAL REPORT [facility] TECHNIQUE: Frontal and lateral chest radiographs dated 11.28.2018. CLINICAL HISTORY: Pretransplant eval COMPARISON STUDY: Chest radiographs dated 10/10/2018 FINDINGS: There is a moderate right pleural effusion with associated atelectasis. Left lung is clear. No pneumothorax. Cardiomediastinal silhouette is normal in size. No pulmonary edema. Bones are osteopenic. IMPRESSION: Moderate right pleural effusion with associated atelectasis. Signed: Minna House MD Report Verified Date/Time:11/28/2018 15:18:25 Reading Location: [facility] Radiology Reading Room Procedure Note Interface, External Ris In - 11/28/2018 3:20 PM [employer] FINAL REPORT TECHNIQUE: Frontal and lateral chest radiographs dated 11.28.2018. CLINICAL HISTORY: Pretransplant eval COMPARISON STUDY: Chest radiographs dated 10/10/2018 FINDINGS: There is a moderate right pleural effusion with associated atelectasis. Left lung is clear. No pneumothorax. Cardiomediastinal silhouette is normal in size. No pulmonary edema. Bones are osteopenic. IMPRESSION: Moderate right pleural effusion with associated atelectasis. Signed: Minna House MD Report Verified Date/Time: 11/28/2018 15:18:25 Reading Location: [facility] Radiology Reading Room Performing Organization Address [facility]out Phone Number [facility] PT/aPTT (11/28/2018 2:36 PM [employer]) Protime 16.6 (H) 11.7 - 14.7 seconds [facility] INR 1.3 <=5.9 [facility] PTT 40.9 (H) 22.5 - 36.0 seconds [facility] Specimen Blood Narrative Performed At RECOMMENDED COUMADIN/WARFARIN INR THERAPY [facility] RANGES STANDARD DOSE: 2.0 - 3.0 Includes: PROPHYLAXIS for venous thrombosis, systemic embolization; TREATMENT for venous thrombosis and/or pulmonary embolus. HIGH RISK: Target INR is 2.5-3.5 for patients with mechanical heart valves. Performing Organization Address [facility] Cent[facility]out Phone Number [address] [address] CENTER Platelet count (11/28/2018 2:36 PM [employer]) Platelets 87 (L) 150 - 450 K/CU MM [facility] Specimen Blood Performing Organization Address [facility] Centercode Phone Number [place] [phone] [place] [address] CENTER Urinalysis w/Microscopic + Reflex to Culture (11/28/2018 11:49 AM [employer]) Color, UA Yellow [facility] Clarity, UA Clear [facility] Specific [place], UA 1.010 1.001 - 1.035 [facility] pH, UA 7.0 5.0 - 8.0 [facility] Protein, UA Negative Negative [facility] Glucose, UA Negative Negative [facility] Ketones, UA Negative Negative [facility] Bilirubin, UA Negative Negative [facility] Blood, UA Negative Negative [facility] Nitrite, UA Negative Negative [facility] Leukocytes, UA Negative Negative [facility] Urobilinogen, UA 0.2 0.2 - 1.0 mg/dL [facility] RBC, UA 1 /HPF [facility] WBC, UA <1 /HPF [facility] Mucus Occasional [facility] Squam Epithel, UA 1 /HPF [facility] Specimen Source [facility] Specimen Urine Performing Organization Address City/State/Zipcode Phone Number [facility] [address] [place] [address] CENTER Drug screen, urine, transplant (11/28/2018 11:49 AM [employer]) Specimen Urine Narrative Performed At Performing Organization Address City/State/Zipcode Phone Number [address] [phone] T Spot TB (11/28/2018 11:38 AM [employer]) T-Spot TB Negative [facility] Neg Ctrl Spot Count 0 [facility] Panel A Spot 0 [facility] Panel B Spot 0 [facility] Pos Ctrl Spot Ct 0 [facility] Scan Result [facility] Specimen Blood Narrative Performed At Performing Organization Address City/State/Zipcode Phone Number [facility] [address] [place] [address] [address] MR abdomen with/without IV contrast (10/10/2018 1:35 PM [employer])Only the most recent of2 resultswithin the time period is included. Narrative Performed At FINAL REPORT GE RIS INDICATION: 68-year-old female with cirrhosis. Evaluation before liver transplant. COMPARISON: September 13, 2018 TECHNIQUE: MR of the Abdomen WITHOUT and WITH intravenous contrast. FINDINGS: Caudate lobe hypertrophy is in keeping with cirrhosis. No liver mass is demonstrated. Perfusion anomaly in the posterior segment, likely related to attenuated posterior branch of the right portal vein. Partial thrombus in the superior mesenteric vein is not significantly changed since September 13. No thrombus in the main portal vein or splenic vein is demonstrated. Spleen measures 15 x 7 cm in the coronal plane. There is moderate ascites. Gallbladder is not visualized and presumably has been resected. No biliary ductal dilatation is demonstrated. Pancreas, adrenal glands, kidneys, visualized bowel loops, osseous structures unremarkable. There is a large periumbilical hernia measuring 10 x 8 cm coronal plane. It is best demonstrated on postcontrast coronal image 104 through 120. IMPRESSION: Cirrhosis without evidence of liver mass. 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 It does not extend into the main portal vein. Large periumbilical hernia. Signed: Ebenezer James MD Report Verified Date/Time:10/10/2018 15:37:48 Reading Location: [facility] [id number] Ortho Consult Reading Room Procedure Note Interface, External Ris In - 10/10/2018 3:39 PM [employer] FINAL REPORT INDICATION: 68-year-old female with cirrhosis. Evaluation before liver transplant. COMPARISON: September 13, 2018 TECHNIQUE: MR of the Abdomen WITHOUT and WITH intravenous contrast. FINDINGS: Caudate lobe hypertrophy is in keeping with cirrhosis. No liver mass is demonstrated. Perfusion anomaly in the posterior segment, likely related to attenuated posterior branch of the right portal vein. Partial thrombus in the superior mesenteric vein is not significantly changed since September 13. No thrombus in the main portal vein or splenic vein is demonstrated. Spleen measures 15 x 7 cm in the coronal plane. There is moderate ascites. Gallbladder is not visualized and presumably has been resected. No biliary ductal dilatation is demonstrated. Pancreas, adrenal glands, kidneys, visualized bowel loops, osseous structures unremarkable. There is a large periumbilical hernia measuring 10 x 8 cm coronal plane. It is best demonstrated on postcontrast coronal image 104 through 120. IMPRESSION: Cirrhosis without evidence of liver mass. 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 It does not extend into the main portal vein. Large periumbilical hernia. Signed: Ebenezer James MD Report Verified Date/Time: 10/10/2018 15:37:48 Reading Location: [facility] [id number] Ortho Consult Reading Room Performing Organization Address City/State/Zipcode Phone Number GE RIS XR dxa bone density study (10/10/2018 12:39 PM [employer]) Narrative Performed At FINAL REPORT GE RIS RAD, BONE DENSITY STUDY CLINICAL HISTORY: Pretransplant Liver Evaluation COMPARISON: None FINDINGS: Bone mineral density measurement: Lumbar spine:0.895gm/cm2 Mean femoral neck:0.715 gm/cm2 Standard deviation from young adult population (T-score) Lumbar spine:-2.4 Mean femoral neck:-2.3 Standard deviation for age adjusted population (Z score) Lumbar spine:-0.7 Mean femoral neck:-0.6 WHO body mass index calculation=26.5 kg/m2, qualifying for overweight classification IMPRESSION: WHO Classification of osteopenia for the lumbar spine. WHO Classification of osteopenia for the mean femoral neck. WHO Diagnostic criteria for osteoporosis BMD: Bone mineral density Normal : BMD measurement less than one standard deviation from young adult population Osteopenia: BMD measurement between 1 and 2.5 standard deviations Osteoporosis: BMD measurement greater than 2.5 standard deviations Signed: JR De Anda Robert MD Report Verified Date/Time:10/10/2018 12:55:04 Reading Location: [facility] Radiology Reading Room Procedure Note Interface, External Ris In - 10/10/2018 12:57 PM [employer]PER[employer] FINAL REPORT RAD, BONE DENSITY STUDY CLINICAL HISTORY: Pretransplant Liver Evaluation COMPARISON: None FINDINGS: Bone mineral density measurement: Lumbar spine: 0.895 gm/cm2 Mean femoral neck: 0.715 gm/cm2 Standard deviation from young adult population (T-score) Lumbar spine: -2.4 Mean femoral neck: -2.3 Standard deviation for age adjusted population (Z score) Lumbar spine: -0.7 Mean femoral neck: -0.6 WHO body mass index calculation=26.5 kg/m2, qualifying for overweight classification IMPRESSION: WHO Classification of osteopenia for the lumbar spine. WHO Classification of osteopenia for the mean femoral neck. WHO Diagnostic criteria for osteoporosis BMD: Bone mineral density Normal : BMD measurement less than one standard deviation from young adult population Osteopenia: BMD measurement between 1 and 2.5 standard deviations Osteoporosis: BMD measurement greater than 2.5 standard deviations Signed: JR De Anda Robert MD Report Verified Date/Time: 10/10/2018 12:55:04 Reading Location: [facility] Radiology Reading Room Performing Organization Address [facility] Phone Number GE RIS XR mandible 4 views min (10/10/2018 12:25 PM [employer]CRE[employer]) Narrative Performed At FINAL REPORT GE RIS MANDIBLE History provided: Pretransplant evaluation The patient is partially edentulous. No bony destructive change is seen to specifically indicate abscess. The remaining teeth show no lucency about the roots. Signed: Sherry Benson MD Report Verified Date/Time:10/10/2018 12:49:12 Reading Location: [address] Radiology Reading Room Procedure Note Interface, External Ris In - 10/10/2018 12:51 PM [employer]CRE[employer]PER[employer] FINAL REPORT MANDIBLE History provided: Pretransplant evaluation The patient is partially edentulous. No bony destructive change is seen to specifically indicate abscess. The remaining teeth show no lucency about the roots. Signed: Sherry Benson MD Report Verified Date/Time: 10/10/2018 12:49:12 Reading Location: [address] Radiology Reading Room Performing Organization Address City/[facility] Phone Number GE RIS Screen, urine (10/02/2018 2:39 PM [employer]CRE[employer]PER[employer]OR) Preg Test, Ur Negative [facility] Specimen Urine Performing Organization Address City/[facility] Cent[facility] Phone Number [facility] [address] [address] [phone] [place] Urinalysis w/Microscopic (10/02/2018 2:39 PM [employer]) Color, UA Yellow [facility] Clarity, UA Hazy [facility] Specific [place], UA 1.015 1.001 - 1.035 [facility] pH, UA 6.5 5.0 - 8.0 [facility] Protein, UA Negative Negative [facility] Glucose, UA Negative Negative [facility] Ketones, UA Negative Negative [facility] Bilirubin, UA Negative Negative [facility] Blood, UA Small (A) Negative [facility] Nitrite, UA Negative Negative [facility] Leukocytes, UA Large (A) Negative [facility] Urobilinogen, UA 2.0 (H) 0.2 - 1.0 mg/dL [facility] RBC, UA 4 /HPF [facility] WBC, UA 7 /HPF [facility] Bacteria, UA Rare [facility] Mucus Rare [facility] Squam Epithel, UA 7 /HPF [facility] Specimen Source [facility] Specimen Urine Performing Organization Address City/State/Zipcode Phone Number [address] [address] [place] Hepatitis A antibody, IgG ([facility] ONLY) (10/02/2018 2:34 PM [employer]CRE[employer]PER[employer]) Hep A IgG Reactive (A) Nonreactive [facility] Specimen Blood Performing Organization Address City/[facility]/Zipcode Phone Number [address] [address] [phone] [place] Alpha-1 antitrypsin Mutation Analysis (10/02/2018 2:34 PM [employer]CRE[employer] SUPER[employer]OR) [address] Mut SEE BELOW [facility] Comment: INCORPORATED RESULT: NO MUTATION DETECTED Interpretation: DNA testing indicates that this individual is negative for the PI*Z and PI*S alleles in the xpbfn-1-jhadmiuwtix (PI) gene (genotype PI*M/PI*M). This negative result does not rule out the presence of other mutations within the PI gene or other causes of fvmif-9-txywuinxizv deficiency. Therefore, these results should be interpreted in the context of the individual's clinical presentation, and other laboratory tests such as measurement of serum rcqqd-6-crgkwoqjiuy levels. Laboratory testing supervised and results monitored by Kale Ramirez, Ph.D. , [facility], [facility], [facility]. Whiet-1-towxtltxtep deficiency is a relatively common autosomal recessive condition. The two most common deficiency alleles in the qseus-3-cqovgtrbtyz gene (protease inhibitor locus, PI) are designated PI*Z and PI*S, and the normal allele is designated PI*M. The PI*Z/PI*Z, PI*S/PI*Z, and PI*S/PI*S genotypes associated with decreased serum PI levels that are equivalent to approximately 10-20%, 35-40%, and 50-60% of normal, respectively. The PI*Z/PI*Z and PI*S/PI*Z genotypes are reported to be associated with an increased risk of liver disease in childhood, and chronic obstructive pulmonary disease (COPD) and emphysema in adult life. The PI*M/PI*Z, and PI*M/PI*S genotypes are also associated with decreased serum PI levels but these levels, and the PI levels associated with the PI*S/PI*S genotype, are apparently adequate to protect the lungs in the vast majority of individuals. Individuals with the PI*M/PI*Z genotype may have decreased pulmonary function, and may be at increased risk for COPD, especially if they smoke. It should be noted that serum vzrqa-9-zvueffzlvqx levels can be induced by a wide variety of conditions that include , infection, numerous inflammatory conditions, cancer, and liver disease. Levels of yoyua-5-uuyhobckpai may be reduced by other conditions. Therefore, immunological and functional determinations of serum mnssn-0-phitglsxyym levels may not correlate with the individual's PI genotype. The PI*Z, PI*S, and PI*M alleles are detected by multiplex polymerase chain reaction (PCR) amplification of specific regions of the PI gene, followed by restriction enzyme digestion and capillary electrophoresis. This assay does not test for the presence of other mutations within the wznsj-7-yfmdvcajcrx gene or non-genetic causes of ehzlm-6-zryznbmrflz deficiency. Since genetic variation and other factors can affect the accuracy of direct mutation testing, these results should be interpreted in light of clinical and familial data. This test was developed and its analytical performance characteristics have been determined by [employer] [place]. It has not been cleared or approved by FDA. This assay has been validated pursuant to the CLIA regulations and is used for clinical purposes. Clinical Indication NOT GIVEN [employer] Referring Physician PIOTR MCDONNELL [employer] [facility] Specimen Blood Narrative Performed At Performing Lab [employer] [facility] [employer] [place] [address] [place] [address] Gisselle Darby MD, PhD, NACHO Performing Organization Address [facility] Centercode Phone [place] [address] INCORPORATED [facility] [place] [employer] [facility] Mitochondria M2 Antibody (IgG) (10/02/2018 2:34 PM [employer]ING [employer]CRE[employer]ING [employer]PER[employer]OR) Mitochondria M2 Ab <20.0 See Note: U [employer] [facility] Comment: Reference Range: NEGATIVE:< OR=20.0 EQUIVOCAL: 20.1-24.9 POSITIVE:> OR=25.0 Specimen Blood Narrative Performed At Performing Lab [employer] [facility] [employer] [address] [address] Gisselle Darby MD, PhD, NACHO Performing Organization Address [facility] Centercode [place] [address] [address] [place] [address] [employer] [facility] Iron, TIBC, % sat. (without ferritin) (10/02/2018 2:34 PM [employer]CRE[employer]PER[employer]OR) Iron 34 (L) 40 - 160 ug/dL [facility] TIBC 370 250 - 450 ug/dL [facility] Iron % Saturation 9 (L) 20 - 55 % [facility] Specimen Blood Performing Organization Address City/State/Zipcode Phone Number [address] [address] [place] HIV-1 Antigen with HIV-1/2 Antibody (10/02/2018 2:34 PM [employer]ING [employer]CRE[employer]ING [employer] SUPER[employer]OR) HIV-1 Antigen with HIV 1&2 NON-REACTIVE Nonreactive [facility] Antibody MEDICAL [place] Specimen Blood Performing Organization Address City/[facility]/Zipcode Phone Number [address] [address] [phone] [place] Calcium, Ionized (10/02/2018 2:34 PM W[employer]CRE[employer]ING [employer] SUPERVISOR) Calcium, Ion 1.12 1.12 - 1.27 mmol/L [facility] pH, Blood 7.39 [facility] Specimen Blood Performing Organization Address [facility] Centercout Phone Number [address] [address] [phone] [place] CBC with platelet count + automated diff (10/02/2018 2:34 PM WASHING [employer]CRE[employer]ING [employer] SUPERVISOR)Only the most recent of2 resultswithin the time period is included. WBC 4.7 3.5 - 10.5 K/L [facility] RBC 3.53 (L) 3.93 - 5.22 M/L [facility] Hemoglobin 9.6 (L) 11.2 - 15.7 GM/DL [facility] Hematocrit 31.2 (L) 34.1 - 44.9 % [facility] MCV 88.4 79.4 - 94.8 fL [facility] MCH 27.2 25.6 - 32.2 pg [facility] MCHC 30.8 (L) 32.2 - 35.5 GM/DL [facility] RDW 14.8 (H) 11.7 - 14.4 % [facility] Platelets 94 (L) 150 - 450 K/CU MM [facility] MPV 11.4 9.4 - 12.3 fL [facility] nRBC 0 0 - 0 /100 WBC [facility] % Neutros 83 % [facility] % Lymphs 9 % [facility] % Monos 6 % [facility] % Eos 1 % [facility] % Baso 0 % [facility] # Neutros 3.93 1.56 - 6.13 K/L [facility] # Lymphs 0.43 (L) 1.18 - 3.74 K/L [facility] # Monos 0.28 0.24 - 0.36 K/L [facility] # Eos 0.05 0.04 - 0.36 K/L [facility] # Baso 0.02 0.01 - 0.08 K/L [facility] Immature Granulocytes-Relative 0 0 - 1 % [facility] Specimen Blood Performing Organization Address City/[facility]/Zipcode Phone Number [address] [address] [phone] [place] Hepatitis C antibody (10/02/2018 2:34 PM WASHING [employer] SCREENING [employer] SUPERVISOR) Hepatitis C Ab NON-REACTIVE Nonreactive [facility] Specimen Blood Performing Organization Address City/[facility]/Zipcode Phone Number [address] [address] [phone] [place] Cytomegalovirus antibody, IgM (10/02/2018 2:34 PM WASHING [employer]CREENING [employer] SUPERVISOR) CMV IGM Negative Negative, Equivocal [facility] Specimen Blood Narrative Performed At CMV IgM Result Interpretation: [facility] </=0.8 Al Negative 0.9-1.0 Al Equivocal >/=1.1 Al Positive Performing Organization Address [facility] Cent[facility]out Phone Number [address] [address] CENTER Actin (Smooth Muscle) Antibody, IgG (10/02/2018 2:34 PM WASHING [employer]CREENING [employer] SUPERVISOR) Anti-Smooth Muscle Ab <20 See Note: U [facility] [employer] Comment: INCORPORATED Reference Range: <20 NEGATIVE > OR=20 POSITIVE Antibodies recognizing actin are the main component of smooth muscle antibodies associated with autoimmune liver disease. Actin antibodies are found in approximately 75% of patients with autoimmune hepatitis (AIH) type 1, approximately 65% of patients with autoimmune cholangitis, approximately 30% of patients with primary biliary cirrhosis, and approximately 2% of healthy people. High values are closely correlated with AIH type 1. Specimen Blood Narrative Performed At Performing Lab [employer] [facility] [employer] [address] [place] [address] Gisselle Darby MD, PhD, NACHO Performing Organization Address [facility] Phone Number [employer] [place], [place] [address] INCORPORATED [address] [facility] Scvvm-1-ebptzmeovjn (10/02/2018 2:34 PM WASHING [employer]CREENING [employer] SUPERVISOR) A-1 Antitrypsin 184.10 90.00 - 200.00 mg/dL [facility] Specimen Blood Performing Organization Address [facility] Centercout Phone Number [address] [address] [phone] CENTER Carbohydrate antigen 19-9 (CA 19-9) (10/02/2018 2:34 PM WASHING [employer]CREENING [employer] SUPERVISOR) CA 19-9 8 <34 U/mL [employer] Comment: This test was performed using the Siemens (Outerstuff) Chemiluminescent method. Values obtained from different assay methods cannot be used interchangeably. CA19-9 levels, regardless of value, should not be interpreted as absolute evidence of the presence or absence of disease. Specimen Blood Narrative Performed At Performing Lab [employer] [address] [place] [address] Gisselle Darby MD, PhD, NACHO Performing Organization Address City/[facility] Centercode Phone Number [place] [address] INCORPORATED [address] [place] [employer] [facility] [employer] Titer [employer] Pattern (10/02/2018 2:34 PM WASHING [employer]CREENING [employer] SUPERVISOR) [employer]OT Titer 1:160 [facility] [employer] Pattern [employer] [facility] Specimen Blood Performing Organization Address [facility] Centercode Phone Number [facility] [address] [place] [address] [phone] CENTER Ceruloplasmin (10/02/2018 2:34 PM WASHING [employer]CREENING [employer] SUPERVISOR) Ceruloplasmin 20 18 - 53 mg/dL [employer] Comment: Adults:Males: 18-36 mg/dL Females: 18-53 mg/dL Pediatrics:Males (mg/dL)Females (mg/dL) 0-30 Days 8-25 3-28 31 Days-11 Month 15-4815-43 1-3 Vhfon47-5400-08 4-6 Ykqno01-5669-77 7-9 Isjxy14-4668-11 10-12 Ecmuu27-4631-22 13-15 Rqprr08-6491-34 16-18 [id number] The pediatric ranges are derived from the following criteria: Radha SJ, Kirby JM, Jennifer J et al Pediatric reference ranges for Ruar-7-Hfhnliwejiqgu and ceruloplasmin. Clin. Chem 1997; 43:S1999 Pediatric Reference Ranges, 2nd., SF Radha,et al. editors. [employer], [place], [place] 1997. Specimen Blood Narrative Performed At Performing Lab [employer] [facility] INCORPORATED *[facility] [place] [facility], [address] [place] [phone] Julio Gonzalez MD, PhD Performing Organization Address City/[facility]/Zipcode Phone Number [place] [address] INCORPORATED [address] [facility] Zinc (10/02/2018 2:34 PM WASHING [employer]CREENING [employer] SUPERVISOR) Zinc 96 60 - 130 mcg/dL [facility] Comment: INCORPORATED This test was developed and its analytical performance characteristics have been determined by [employer] [place]. It has not been cleared or approved by the [place] Food and Drug Administration. This assay has been validated pursuant to the CLIA regulations and is used for clinical purposes. Specimen Blood Narrative Performed At Performing Lab [employer] [facility] INCORPORATED *[facility], [address] [place] [address] Julio Gonzalez MD, PhD Performing Organization Address City/[facility] Centercode Phone Number [facility], [place] [address] INCORPORATED [address] [facility] Alpha fetoprotein (AFP), tumor marker (10/02/2018 2:34 PM WASHING [employer]CREENING [employer] SUPERVISOR)Only the most recent of2 resultswithin the time period is included. Alpha-Fetoprotein 2.6 <10.0 ng/mL [facility] Specimen Blood Performing Organization Address [facility] Centercode Phone Number [address] [address] CENTER Hepatitis B core antibody, IgM (10/02/2018 2:34 PM [employer]ASHING [employer]CREENING [employer] SUPERVISOR) Hep B C IgM NON-REACTIVE Nonreactive [facility] Specimen Blood Performing Organization Address City/[facility] Centercode Phone Number [address] [address] CENTER EBV-VCA antibody, IgM (10/02/2018 2:34 PM WASHING [employer] SCREENING [employer] SUPERVISOR) RUPINDER HAGAN VIRAL CAPSID Negative Negative, Equivocal [facility] ANTIGEN IGM [facility] Specimen Blood Narrative Performed At Rupinder Hagan Viral Capsid Antigen IgM Result [facility] Interpretation: </=0.8 Al Negative 0.9-1.0 Al Equivocal >/=1.1 Al Positive Performing Organization Address [facility] Centercode Phone Number [address] [address] [phone] CENTER EBV-VCA antibody, IgG (10/02/2018 2:34 PM WASHING [employer] SCREENING [employer] SUPERVISOR) RUPINDER HAGAN VIRAL CAPSID Positive (A) Negative, Equivocal [facility] ANTIGEN [facility] Specimen Blood Narrative Performed At Rupinder Hagan Viral Capsid Antigen IgG Result [facility] Interpretation: </=0.8 Al Negative 0.9-1.0 Al Equivocal >/=1.1 Al Positive Performing Organization Address City/[facility] Cent[facility]ode Phone Number [address] [address] [place] Hepatitis B core antibody, total (10/02/2018 2:34 PM WASHING [employer]CREENING [employer] SUPERVISOR) Hep B Core Total Ab NON-REACTIVE Nonreactive [facility] Specimen Blood Performing Organization Address [facility] Phone Number [address] [address] [phone] [place] Vitamin D, 25-Hydroxy (10/02/2018 2:34 PM [employer]ASHING [employer]CRE[employer]ING [employer]PERVISOR) Vitamin D 25-Hydroxy 13.6 6.6 - 49.9 ng/mL [facility] Specimen Blood Narrative Performed At Effective 08/22/2017: Reference Range Change [facility] New: 6.6-49.9 ng/mL Previous: 13.0-47.8 ng/mL Recommended Vitamin D Target Range: 30.0-40.0 ng/mL Performing Organization Address [facility] Phone Number [address] [address] [place] RPR (10/02/2018 2:34 PM WASHING [employer]CREENING [employer] SUPERVISOR) RPR Nonreactive Nonreactive [facility] Specimen Blood Performing Organization Address City/[facility] Centercode Phone Number [address] [address] [phone] [place] Hepatitis B surface antibody (10/02/2018 2:34 PM [employer]CRE[employer]ING [employer] SUPERVISOR) Hep B S Ab <8.0 <8.0 mIU/mL [facility] Specimen Blood Performing Organization Address City/State/[facility] Cent[facility]ode Phone Number [address] [address] [phone] [place] Hepatitis B surface antigen (10/02/2018 2:34 PM WASHING [employer]CREENING [employer] SUPERVISOR) hepatitis B Surface Ag NON-REACTIVE Nonreactive [facility] Specimen Blood Performing Organization Address [facility]out Phone Number [address] [address] [phone] [place] Cytomegalovirus antibody, IgG (10/02/2018 2:34 PM W[employer]CRE[employer]ING [employer] SUPERVISOR) CYTOMEGALOVIRUS, IGG Positive (A) Negative, Equivocal [facility] Specimen Blood Narrative Performed At CMV IgG Result Interpretation: [facility] </=0.8 Al Negative 0.9-1.0 Al Equivocal >/=1.1 AlPositive Performing Organization Address [facility] Phone Number [address] [address] [phone] [place] aPTT (10/02/2018 2:34 PM [employer]CRE[employer]ING [employer] SUPER[employer]OR) PTT 35.1 22.5 - 36.0 seconds [facility] Specimen Blood Performing Organization Address [facility] Phone Number [address] [address] [phone] [place] Prothrombin time/INR (10/02/2018 2:34 PM [employer]CRE[employer]ING [employer]PER[employer]OR)Only the most recent of2 resultswithin the time period is included. Protime 16.1 (H) 11.7 - 14.7 seconds [facility] INR 1.3 <=5.9 [facility] Specimen Blood Narrative Performed At RECOMMENDED COUMADIN/WARFARIN INR THERAPY [facility] RANGES STANDARD DOSE: 2.0 - 3.0 Includes: PROPHYLAXIS for venous thrombosis, systemic embolization; TREATMENT for venous thrombosis and/or pulmonary embolus. HIGH RISK: Target INR is 2.5-3.5 for patients with mechanical heart valves. Performing Organization Address [facility] Cent[facility]ode Phone Number [address] [address] CENTER Fibrinogen (10/02/2018 2:34 PM WASHING [employer] SCREENING [employer] SUPERVISOR) Fibrinogen 252 225 - 434 mg/dl [facility] Specimen Blood Performing Organization Address [facility] Centercode Phone Number [address] [address] [place] Anti-Nuclear Antibody (PRABHJOT) (10/02/2018 2:34 PM WASHING [employer]CREENING [employer] SUPERVISOR) [employer]OT Positive (A) Negative [facility] CENTER Specimen Blood Narrative Performed At Test performed by IFA method. [facility] Performing Organization Address [facility] Phone Number [address] [address] [place] Uric acid (10/02/2018 2:34 PM [employer]) Uric Acid 4.1 2.6 - 7.2 mg/dL [facility] Specimen Blood Performing Organization Address [facility] Phone Number [address] [address] CENTER T3 (10/02/2018 2:34 PM [employer]) T3, Total 85 48 - 159 ng/dL [facility] Specimen Blood Performing Organization Address [facility] Phone Number [address] [address] [phone] [place] Transferrin (10/02/2018 2:34 PM [employer]) Transferrin 296 174 - 382 mg/dL [facility] Specimen Blood Performing Organization Address [facility] Phone Number [address] [address] CENTER TSH (10/02/2018 2:34 PM [employer]) TSH 3.97 0.35 - 4.94 uIU/mL [facility] Specimen Blood Performing Organization Address City/State/Zipcode Phone Number [address] [address] [phone] CENTER T4 (10/02/2018 2:34 PM [employer]) T4, Total 6.7 4.9 - 11.7 ug/dL [facility] Specimen Blood Performing Organization Address City/[facility] Phone Number [address] [address] [facility] Phosphorus (10/02/2018 2:34 PM [employer]) Phosphorus 3.1 2.3 - 4.7 mg/dL [facility] Specimen Blood Performing Organization Address [facility] Phone Number [address] [address] [facility] Magnesium (10/02/2018 2:34 PM [employer]) Magnesium 1.8 1.6 - 2.6 mg/dL [facility] Specimen Blood Performing Organization Address [facility] Phone Number [address] [address] [place] Hemoglobin A1c (10/02/2018 2:34 PM [employer]) Hemoglobin A1C 9.2 (H) 4.3 - 6.1 % [facility] Specimen Blood Performing Organization Address City/[facility] Phone Number [address] [address] C[place] Gamma Glutamyl Transferase (GGT) (10/02/2018 2:34 PM [employer]) GGT 26 9 - 64 U/L [facility] Specimen Blood Performing Organization Address [facility] Phone Number [address] [address] [facility] Ferritin (10/02/2018 2:34 PM [employer]) Ferritin 33 5 - 275 ng/mL [facility] Specimen Blood Performing Organization Address [facility] Phone Number [address] [address] [facility] Carcinoembryonic Antigen (CEA) (10/02/2018 2:34 PM [employer]) CEA, SERUM 3.6 0.0 - 5.0 ng/mL [facility] Specimen Blood Performing Organization Address [facility] Phone Number [address] [address] [phone] CENTER Bilirubin, direct (10/02/2018 2:34 PM [employer]) Bilirubin, Direct 0.7 (H) 0.1 - 0.5 mg/dL [facility] Specimen Blood Performing Organization Address [facility] Phone Number [address] [address] CENTER Ethanol (10/02/2018 2:34 PM [employer]) Ethanol Lvl <10 <=10 mg/dL [facility] Specimen Blood Performing Organization Address [facility] Phone Number [address] [address] [phone] [place] Lipid panel (10/02/2018 2:34 PM [employer]) Triglycerides 67 mg/dL [facility] Cholesterol 128 mg/dL [facility] HDL 55 mg/dL [facility] LDL Calculated 60 mg/dL [facility] Specimen Blood Narrative Performed At Triglyceride Reference Range: [facility] Low Risk <150 [id number] High Risk 200-499 Very High Risk>=500 Cholesterol Reference Range: Low Risk <200 [id number] High Risk>240 HDL Cholesterol Reference Range: Low Risk >=60 High Risk <40 LDL Cholesterol Reference Range: Optimal<100 Near [id number] Very High >=190 Performing Organization Address [facility]ode Phone Number [facility] [address] [place] [address] [phone] CENTER XR knee 3 views right (10/02/2018 8:57 AM [employer]) Narrative Performed At FINAL REPORT [facility] Right knee, 10/02/2018 Four views of the right knee disclose no evidence of displaced fracture or dislocation. A knee effusion is suggested. There is minor sharpening of the lateral tibial spine consistent with minimal degenerative change. No further osseous abnormalities are identified. Signed: Elida Veras MD Report Verified Date/Time:10/02/2018 08:59:15 Reading Location: [facility] Diagnostic Imaging Reading Room - [facility] F1 1.310.12 Procedure Note Interface, External Ris In - 10/02/2018 9:01 AM [employer] FINAL REPORT Right knee, 10/02/2018 Four views of the right knee disclose no evidence of displaced fracture or dislocation. A knee effusion is suggested. There is minor sharpening of the lateral tibial spine consistent with minimal degenerative change. No further osseous abnormalities are identified. Signed: Elida Veras MD Report Verified Date/Time: 10/02/2018 08:59:15 Reading Location: [facility] Diagnostic Imaging Reading Room - [facility] F1 1.310.12 Performing Organization Address [facility] Phone Number [facility]on[facility] CT maxillofacial without IV contrast (10/02/2018 8:50 AM [employer]) Narrative Performed At FINAL REPORT [facility] CT, MAXILLOFACIAL AREA, WO CONTRAST CLINICAL INDICATION:Head trauma, headache FALL COMPARISON: None TECHNIQUE:Noncontrast axial CT imaging of the brain and skull. Noncontrast CT images of the maxillofacial region. Sagittal and coronal reformations are also provided in osseous and soft tissue algorithms. DOSE REDUCTION: Dose modulation, iterative reconstruction, and/or weight-based adjustment of the mA/kV was utilized to reduce the radiation dose to as low as reasonably achievable. FINDINGS: Brain: Moderate volume loss with frontal predominance. No evidence of infarct or parenchymal hemorrhage. Basal ganglia calcifications likely embolic. No abnormal extra-axial fluid. No midline shift. There is expected passive expansion of the ventricular volumes. Intact calvarium and skull base. Dense vascular calcifications involving the intracranial circulation. Superficial hematoma overlying the left frontal/supraorbital convexity. Maxillofacial region: There is no facial bone fracture. Paranasal sinuses reveal mucosal polyposis versus retention cysts bilaterally in the maxillary chambers. Remaining paranasal sinuses are clear. Mastoid air cells are normally pneumatized. Middle ear cavities are unremarkable. Clivus and skull base are intact. The globes are intact. There is no intraconal abnormality. The temporomandibular joints are normally aligned. The mandible is intact. Asymmetric parasymphyseal edema is noted superficial on the left. Multiple dental caries are present. The craniocervical junction, including in the, is intact. Sellar region is unremarkable. Visible portions of the upper aerodigestive tract are clear. IMPRESSION: Superficial soft tissue injuries without facial fracture. No traumatic intracranial abnormality. Signed: JR De Anda Robert MD Report Verified Date/Time:10/02/2018 09:11:30 Reading Location: [facility] Neuro Reading Room Procedure Note Interface, External Ris In - 10/02/2018 9:13 AM [employer]PERVISOR FINAL REPORT CT, MAXILLOFACIAL AREA, WO CONTRAST CLINICAL INDICATION: Head trauma, headache FALL COMPARISON: None TECHNIQUE: Noncontrast axial CT imaging of the brain and skull. Noncontrast CT images of the maxillofacial region. Sagittal and coronal reformations are also provided in osseous and soft tissue algorithms. DOSE REDUCTION: Dose modulation, iterative reconstruction, and/or weight-based adjustment of the mA/kV was utilized to reduce the radiation dose to as low as reasonably achievable. FINDINGS: Brain: Moderate volume loss with frontal predominance. No evidence of infarct or parenchymal hemorrhage. Basal ganglia calcifications likely embolic. No abnormal extra-axial fluid. No midline shift. There is expected passive expansion of the ventricular volumes. Intact calvarium and skull base. Dense vascular calcifications involving the intracranial circulation. Superficial hematoma overlying the left frontal/supraorbital convexity. Maxillofacial region: There is no facial bone fracture. Paranasal sinuses reveal mucosal polyposis versus retention cysts bilaterally in the maxillary chambers. Remaining paranasal sinuses are clear. Mastoid air cells are normally pneumatized. Middle ear cavities are unremarkable. Clivus and skull base are intact. The globes are intact. There is no intraconal abnormality. The temporomandibular joints are normally aligned. The mandible is intact. Asymmetric parasymphyseal edema is noted superficial on the left. Multiple dental caries are present. The craniocervical junction, including in the, is intact. Sellar region is unremarkable. Visible portions of the upper aerodigestive tract are clear. IMPRESSION: Superficial soft tissue injuries without facial fracture. No traumatic intracranial abnormality. Signed: JR Adilson, Lina HERNANDEZ Report Verified Date/Time: 10/02/2018 09:11:30 Reading Location: [facility] [id number] Neuro Reading Room Performing Organization Address City/State/Zipcode Phone Number [facility] CT brain without IV contrast (10/02/2018 8:50 AM W[employer]PER[employer]) Narrative Performed At FINAL REPORT [facility] CT, BRAIN, WITHOUT CONTRAST CLINICAL INDICATION:Head trauma, headache FALL COMPARISON: None TECHNIQUE:Noncontrast axial CT imaging of the brain and skull. Noncontrast CT images of the maxillofacial region. Sagittal and coronal reformations are also provided in osseous and soft tissue algorithms. DOSE REDUCTION: Dose modulation, iterative reconstruction, and/or weight-based adjustment of the mA/kV was utilized to reduce the radiation dose to as low as reasonably achievable. FINDINGS: Brain: Moderate volume loss with frontal predominance. No evidence of infarct or parenchymal hemorrhage. Basal ganglia calcifications likely embolic. No abnormal extra-axial fluid. No midline shift. There is expected passive expansion of the ventricular volumes. Intact calvarium and skull base. Dense vascular calcifications involving the intracranial circulation. Superficial hematoma overlying the left frontal/supraorbital convexity. Maxillofacial region: There is no facial bone fracture. Paranasal sinuses reveal mucosal polyposis versus retention cysts bilaterally in the maxillary chambers. Remaining paranasal sinuses are clear. Mastoid air cells are normally pneumatized. Middle ear cavities are unremarkable. Clivus and skull base are intact. The globes are intact. There is no intraconal abnormality. The temporomandibular joints are normally aligned. The mandible is intact. Asymmetric parasymphyseal edema is noted superficial on the left. Multiple dental caries are present. The craniocervical junction, including in the, is intact. Sellar region is unremarkable. Visible portions of the upper aerodigestive tract are clear. IMPRESSION: Superficial soft tissue injuries without facial fracture. No traumatic intracranial abnormality. 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 Noncontrast CT images of the maxillofacial region. Sagittal and coronal reformations are also provided in osseous and soft tissue algorithms. DOSE REDUCTION: Dose modulation, iterative reconstruction, and/or weight-based adjustment of the mA/kV was utilized to reduce the radiation dose to as low as reasonably achievable. FINDINGS: Brain: Moderate volume loss with frontal predominance. No evidence of infarct or parenchymal hemorrhage. Basal ganglia calcifications likely embolic. No abnormal extra-axial fluid. No midline shift. There is expected passive expansion of the ventricular volumes. Intact calvarium and skull base. Dense vascular calcifications involving the intracranial circulation. Superficial hematoma overlying the left frontal/supraorbital convexity. Maxillofacial region: There is no facial bone fracture. Paranasal sinuses reveal mucosal polyposis versus retention cysts bilaterally in the maxillary chambers. Remaining paranasal sinuses are clear. Mastoid air cells are normally pneumatized. Middle ear cavities are unremarkable. Clivus and skull base are intact. The globes are intact. There is no intraconal abnormality. The temporomandibular joints are normally aligned. The mandible is intact. Asymmetric parasymphyseal edema is noted superficial on the left. Multiple dental caries are present. The craniocervical junction, including in the, is intact. Sellar region is unremarkable. Visible portions of the upper aerodigestive tract are clear. IMPRESSION: Superficial soft tissue injuries without facial fracture. No traumatic intracranial abnormality. Signed: JR De Anda Robert MD Report Verified Date/Time: 10/02/2018 09:02:30 Reading Location: [address] Neuro Reading Room Performing Organization Address City/[facility] Phone Number GE RIS POC-Creatinine (09/13/2018 12:26 PM CDT) POC-Creatinine 1.1Comment: TESTED AT 0.6 - 1.3 mg/dL [facility] [address] [place] [address] [place] [address] POC-EGFR 49 mL/min/1.73M2 [facility] Specimen Blood Performing Organization Address [facility] Phone Number [address] [address] [place] Hepatic function panel (09/04/2018 10:54 AM CDT) Protein, Total 8.0 6.0 - 8.3 gm/dL [facility] Albumin 3.9 3.5 - 5.0 g/dL [facility] Total Bilirubin 0.7 0.2 - 1.2 mg/dL [facility] Bilirubin, Direct 0.4 0.1 - 0.5 mg/dL [facility] Alkaline Phosphatase 172 (H) 40 - 150 U/L [facility] AST 15 5 - 34 U/L [facility] ALT 12 6 - 55 U/L [facility] Specimen Blood Performing Organization Address City/[facility] Phone Number [address] [address] [place] Basic Metabolic Panel (09/04/2018 10:54 AM CDT) Sodium 131 (L) 136 - 145 meq/L [facility] Potassium 4.3 3.5 - 5.1 meq/L [facility] Chloride 95 (L) 98 - 107 meq/L [facility] CO2 28 22 - 29 meq/L [facility] BUN 13 7 - 21 mg/dL [facility] Creatinine 1.42 (H) 0.57 - 1.25 mg/dL [facility] Glucose 506 (HH) 70 - 105 mg/dL [facility] Calcium 9.6 8.4 - 10.2 mg/dL [facility] EGFR 37Comment: ESTIMATED GFR IS mL/min/1.73 sq m [facility] NOT ACCURATE [facility] CLEARANCE IN PREDICTING GLOMERULAR FILTRATION RATE. ESTIMATED GFR IS NOT APPLICABLE FOR DIALYSIS PATIENTS. Specimen Blood Performing Organization Address City/State/Zipcode Phone Number [facility] [address] [place], [place] [id number] CENTER after 02/11/2018 Insurance Payer Benefit Plan / Group Subscriber ID Type Phone Address [employer] - UNITED MEDICARE HMO xxxxxxxxx MEDICARE MGD CARE CARE IMPROVEMENT CARE IMPROVEMENT PLUS xxxxxxxxx MEDICARE [facility]GD CARE [facility] MCR xxxxxxxxx Transplants [employer] - MEDICARE MGD REPL CARE Advance Directives For more information, please contact:[address] [phone] Code Status Date Activated Date Inactivated Comments Full Code 12/17/2018 8:23 AM This code status was determined by: Patient Full Code 12/17/2018 8:23 AM 12/17/2018 8:23 AM This code status was determined by: Patient Full Code 12/22/2016 1:31 AM 12/23/2016 12:25 PM This code status was determined by: Patient
--- OUTSIDE RECORDS SUMMARY | 2019-02-12 17:28 | XMS REPORT ---
:1950 [facility] Address [address] [place] [address] Care Team Providers Name Role Phone NI INFANTE Unavailable Unavailable MARNIE WEBB Unavailable Unavailable PIOTR MCDONNELL Unavailable Unavailable NAKIA CHAMORRO Unavailable Unavailable ESTELLE BRYANT Unavailable Unavailable Problems This patient has no known problems. Allergies, Adverse Reactions, Alerts This patient has no known allergies or adverse reactions. Medications This patient has no known medications. Results Test Description Test Time Test Comments Text Results Atomic Results Result Comments CBC (HEMOGRAM ONLY) 2018-12-17 14:15:00 Test Item Value Reference Range Comments WHITE BLOOD CELL COUNT (BEAKER) (test eutl=693) 2.9 K/ L 3.5-10.5 RED BLOOD CELL COUNT (BEAKER) (test rllr=484) 3.03 M/ L 3.93-5.22 HEMOGLOBIN (BEAKER) (test ejzv=305) 7.5 GM/DL 11.2-15.7 HEMATOCRIT (BEAKER) (test mrln=209) 24.2 % 34.1-44.9 MEAN CORPUSCULAR VOLUME (BEAKER) (test pekw=604) 79.9 fL 79.4-94.8 MEAN CORPUSCULAR HEMOGLOBIN (BEAKER) (test ubda=125) 24.8 pg 25.6-32.2 MEAN CORPUSCULAR HEMOGLOBIN CONC (BEAKER) (test ouar=840) 31.0 GM/DL 32.2- 35.5 RED CELL DISTRIBUTION WIDTH (BEAKER) (test ujvr=474) 15.7 % 11.7-14.4 PLATELET COUNT (BEAKER) (test fdwx=324) 65 K/CU MM 150-450 MEAN PLATELET VOLUME (BEAKER) (test ksyl=900) 11.0 fL 9.4-12.3 NUCLEATED RED BLOOD CELLS (BEAKER) (test bilx=294) 0 /100 WBC 0-0 COMPREHENSIVE METABOLIC [id number] 09:49:00 Test Item Value Reference Range Comments TOTAL PROTEIN (BEAKER) 7.2 gm/dL 6.0-8.3 (test lzto=273) ALBUMIN (BEAKER) (test 3.3 g/dL 3.5-5.0 pgws=5835) ALKALINE PHOSPHATASE 91 U/L 40-150 (BEAKER) (test xqez=193) BILIRUBIN TOTAL (BEAKER) 1.0 mg/dL 0.2-1.2 (test ccbp=707) SODIUM (BEAKER) (test 138 meq/L 136-145 odxx=438) POTASSIUM (BEAKER) (test 3.8 meq/L 3.5-5.1 crpz=550) CHLORIDE (BEAKER) (test 105 meq/L 98-107 kepx=778) CO2 (BEAKER) (test 27 meq/L 22-29 ezvu=736) BLOOD UREA NITROGEN 12 mg/dL 7-21 (BEAKER) (test ifol=453) CREATININE (BEAKER) (test 0.81 mg/dL 0.57-1.25 asrl=795) GLUCOSE RANDOM (BEAKER) 63 mg/dL 70-105 (test dqwe=024) CALCIUM (BEAKER) (test 8.7 mg/dL 8.4-10.2 irzq=957) AST (SGOT) (BEAKER) (test 24 U/L 5-34 injr=482) ALT (SGPT) (BEAKER) (test 12 U/L 6-55 stjg=996) EGFR (BEAKER) (test 70 mL/min/1.73 sq m ESTIMATED GFR IS NOT sgfl=9873) ACCURATE CREATININE CLEARANCE IN PREDICTING GLOMERULAR FILTRATION RATE. ESTIMATED GFR IS NOT APPLICABLE FOR DIALYSIS PATIENTS. CBC (HEMOGRAM ONLY)2018-12-17 09:31:00 Test Item Value Reference Range Comments WHITE BLOOD CELL COUNT (BEAKER) (test btnw=239) 3.8 K/ L 3.5-10.5 RED BLOOD CELL COUNT (BEAKER) (test vxhw=183) 3.46 M/ L 3.93-5.22 HEMOGLOBIN (BEAKER) (test cpjc=089) 8.4 GM/DL 11.2-15.7 HEMATOCRIT (BEAKER) (test onhp=447) 27.8 % 34.1-44.9 MEAN CORPUSCULAR VOLUME (BEAKER) (test fstp=911) 80.3 fL 79.4-94.8 MEAN CORPUSCULAR HEMOGLOBIN (BEAKER) (test 24.3 pg 25.6-32.2 ijwc=652) MEAN CORPUSCULAR HEMOGLOBIN CONC (BEAKER) (test 30.2 GM/DL 32.2-35.5 mggm=448) RED CELL DISTRIBUTION WIDTH (BEAKER) (test 15.8 % 11.7-14.4 ivqq=432) PLATELET COUNT (BEAKER) (test qvjz=144) 85 K/CU MM 150-450 MEAN PLATELET VOLUME (BEAKER) (test mitb=114) 10.9 fL 9.4-12.3 NUCLEATED RED BLOOD CELLS (BEAKER) (test 0 /100 WBC 0-0 sfvk=917) BODY FLUID CULTURE + GRAM [id number] 10:19:00 Test Item Value Reference Range Comments CULTURE (BEAKER) (test rhmr=8514) No growth GRAM STAIN RESULT (BEAKER) (test <1+ WBCs xdzr=0380) GRAM STAIN RESULT (BEAKER) (test No organisms seen krub=80312) U/S, ABDOMINAL, [id number] 22:44:00Referring: Dr. Mohsen Padron for Exam:->pretranslant evaluation, screening for malignant neoplasmFINAL REPORT INDICATION: pretranslant evaluation, screening for malignant neoplasm COMPARISON: Abdominal ultrasound dated 12/22/2016. MRI of the abdomen dated 10/01/1918. TECHNIQUE: Real-time transabdominal yee scale and color Doppler ultrasound of the abdomen. FINDINGS:Liver: Size: 12.5cm. Echogenicity: Heterogeneous hepatic echotexture. Masses/lesions: [...] Size: 9.8 x 4.2 x 4.9 cm. Parenchyma : Mildly increased echogenicity. No cysts. No stones. Hydronephrosis: None. Ascites: Small volume intra-abdominal ascites. Regional Vasculature: The visible abdominalaorta, IVC and hepatic veins are patent. The aorta measures 1.8 cm proximally. Distal portion is notwell seen secondary to poor acoustic windowing. Additional findings: Bilateral pleural effusions.. IMPRESSION: Morphologic changes of cirrhosis with sequela of portal hypertension including splenic megaly and small volume intra-abdominal ascites. Bilateral pleural effusions. Increased renal parenchymal echogenicity is consistent with medical renal disease. Right hepatic lobe cystic structure measuring up to 1.7 cm better evaluated on recent MRI of the abdomen. Signed: Taylor Miguelort Verified Date/Time: 11/28/2018 22:44:50 Reading Location: [address] Reading Room BODY FLUID CELL COUNT WITH [id number] 22:25:00 Test Item Value Reference Range Comments APPEARANCE FLUID (BEAKER) (test mtgj=301) Clear Clear COLOR FLUID (BEAKER) (test rhxg=904) Straw Colorless, Straw RBC FLUID (BEAKER) (test oxnh=920) 178 /cu mm <=1 ADJUSTED WBC FLUID (BEAKER) (test mnch=9438) 121 /cu mm <=5 LINING CELLS (BEAKER) (test hhti=8647) 0 /cu mm <=1 NEUTROPHILS FLUID (BEAKER) (test jnhb=5722) 17 % LYMPHS FLUID (BEAKER) (test pqkq=197) 23 % MONO/MACROPHAGE FLUID (BEAKER) (test pmoa=994) 60 % EOSINOPHILS FLUID (BEAKER) (test qmaq=496) 0 % BASO FLUID (BEAKER) (test budd=522) 0 % CONTAINER BODY FLUID (BEAKER) (test rkvr=7986) EDTA Tube U/S, [id number] 20:53:00Referring: Dr. Mohsen Dillarddminister 200 mL of albumin 25% (50 grams) IV x1 after paracentesis if3 or more liters removed.Send ascitic fluid for cell count and differential.Reason for Exam:-> pretranspalnt eval, ascitesFINAL REPORT PROCEDURE: Ultrasound-guided paracentesis. INDICATION: Ascites. DESCRIPTION: After obtaining informed written consent, ultrasound scan of the abdomen identified ascites in the right lower quadrant. The overlying skin was prepped and draped in the usual, sterile fashion and local 1% lidocaine anesthesia was administered. A 5 Finnish catheter was advanced into the peritoneal cavity. The bowel was very active, and care was taken not to advance the needle when bowel was immediately adjacent to the needle. After the initial stick, approximately 300 mL of fluid was returned, but intermittently the bowel would obstruct the catheter. Therefore, this catheter was removed,and a second 5 Finnish catheter was inserted. 1250 mL of clear yellow fluid was removed in total. Thecatheter was removed without immediate complication. Samples were sent for analysis. IMPRESSION:Uncomplicated ultrasound-guided paracentesis with 1250 mL of fluid removed. Signed: Maykel Flynn Verified Date/Time: 11/28/2018 20:53:26 Reading Location: [address] Ultrasound Reading Room RAD, CHEST, 2 [id number] 15:18:00Referring: Dr. Mohsen Padron for Exam:->pretrasnplant liver evalFINAL REPORT TECHNIQUE: Frontal and lateral chest radiographs dated 11.28.2018. CLINICAL HISTORY: Pretransplant eval COMPARISON STUDY: Chest radiographs dated 10/10/2018 FINDINGS: There is a moderate right pleural effusion with associated atelectasis. Left lung is clear. No pneumothorax. Cardiomediastinal silhouette is normal in size. No pulmonary edema. Bones are osteopenic. IMPRESSION: Moderate right pleural effusion with associated atelectasis. Signed: Minna Houseeport Verified Date/Time: 11/28/2018 15:18:25 Reading Location: [facility] Radiology Reading Room Electronically signed by: MINNA HOUSE MD on 2018 03:18 [id number] 14:48:00 Test Item Value Reference Range Comments PROTIME (BEAKER) (test ccsq=000) 16.6 seconds 11.7-14.7 INR (BEAKER) (test mzda=540) 1.3 <=5.9 PARTIAL THROMBOPLASTIN TIME (BEAKER) (test 40.9 seconds 22.5-36.0 pglw=136) RECOMMENDED COUMADIN/WARFARIN INR THERAPY RANGESSTANDARD DOSE: 2.0 - 3.0 Includes: PROPHYLAXIS forvenous thrombosis, systemic embolization; TREATMENT for venous thrombosis and/or pulmonary embolus.HIGH RISK: Target INR is 2.5-3.5 for patients with mechanical heart valves.PLATELET [id number] 14:39:00 Test Item Value Reference Range Comments PLATELET COUNT (BEAKER) (test ralo=403) 87 K/CU MM 150-450 URINALYSIS W/ REFLEX URINE [id number] 13:37:00 Test Item Value Reference Range Comments COLOR (BEAKER) (test nxsz=489) Yellow CLARITY (BEAKER) (test ssmt=366) Clear SPECIFIC GRAVITY UA (BEAKER) (test nuyc=182) 1.010 1.001-1.035 PH UA (BEAKER) (test onrg=507) 7.0 5.0-8.0 PROTEIN UA (BEAKER) (test jmcw=354) Negative Negative GLUCOSE UA (BEAKER) (test pezn=083) Negative Negative KETONES UA (BEAKER) (test sppl=137) Negative Negative BILIRUBIN UA (BEAKER) (test glvb=476) Negative Negative BLOOD UA (BEAKER) (test zila=165) Negative Negative NITRITE UA (BEAKER) (test ixyz=262) Negative Negative LEUKOCYTE ESTERASE UA (BEAKER) (test guku=130) Negative Negative UROBILINOGEN UA (BEAKER) (test tfrx=395) 0.2 mg/dL 0.2-1.0 RBC UA (BEAKER) (test bydn=100) 1 /HPF WBC UA (BEAKER) (test gzfh=864) < /HPF MUCUS (BEAKER) (test ifvt=7233) Occasional SQUAMOUS EPITHELIAL (BEAKER) (test rumt=452) 1 /HPF SOURCE(BEAKER) (test ttzq=0026) MR, ABDOMEN, [id number] 15:37:00Referring: Dr. Mohsen SweattFINAL REPORT INDICATION:68-year-old female with cirrhosis. Evaluation before liver transplant. COMPARISON: September 13, 2018 TECHNIQUE: MR of the Abdomen WITHOUT and WITH intravenous contrast. FINDINGS:Caudate lobe hypertrophy is in keeping with cirrhosis. [...] on postcontrast coronal image 104 through 120. IMPRESSION:Cirrhosis without evidence of liver mass. 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 It does not extend into the main portal vein. Large periumbilical hernia. Signed: Ebenezer James MDReport Verified Date/Time: 10/10/2018 15:37:48 Reading Location: [address] Ortho Consult Reading Room RAD, BONE DENSITY [id number] 12:55:00Referring: Dr. Mohsen Padron for Exam:->Pretransplant Liver EvaluationFINAL REPORT RAD, BONE DENSITY STUDY CLINICAL HISTORY: Pretransplant Liver Evaluation COMPARISON: None FINDINGS:Bone mineral density measurement: Lumbar spine: 0.895 gm/zf1Cidv femoral neck: 0.715 gm/cm2 Standard deviation from young adult population (T-score)Lumbar spine: -2.4Mean femoral neck: - 2.3 Standard deviation for age adjusted population (Z score)Lumbar spine: - 0.7Mean femoral neck: -0.6 WHO body mass index calculation=26.5 kg/m2, qualifying for overweight classification IMPRESSION: WHO Classification of osteopenia for the lumbar spine. WHO Classification of osteopenia for the mean femoral neck. WHO Diagnostic criteria for osteoporosisBMD: Bone mineral densityNormal : BMD measurement less than one standard deviation from young adult populationOsteopenia: BMD measurement between 1 and 2.5 standard deviationsOsteoporosis: BMD measurement greater than 2.5 standard deviations Signed: JR De Anda Robert MDReport Verified Date/Time: 10/10/2018 12:55: 04 Reading Location: [facility] Radiology Reading Room RAD, MANDIBLE, MIN 4 [id number] 12:49:00Referring: Dr. Mohsen Padron for Exam:-> Pretransplant Liver EvaluationFINAL REPORT MANDIBLE History provided: Pretransplant evaluation The patient is partially edentulous. No bony destructive change is seen to specifically indicate abscess. The remaining teeth show no lucency about the roots. Signed: Sherry Benson Verified Date/Time: 10/10/2018 12:49:12 Reading Location: [address] Radiology Reading Room Electronically signed by: SHERRY BENSON on 2017 12:49 PMRAD, CHEST, 2 [id number] 12:47:00Referring: Dr. Mohsen Padron for Exam:->Pretransplant Liver EvaluationFINAL REPORT CHEST PA AND LATERAL Comparison exam: 09/26/2017 History provided: Pretransplant evaluation Heart size is normal. Right hemidiaphragm is obscured by moderate-sized pleural effusion. Atelectatic change is likely within the right lower lobe. Left lung clear. Normal vascularity. IMPRESSION: Moderately large right pleural effusion. Signed: Sherry Benson Verified Date/Time: 10/10/2018 12:47:57 Reading Location: [address] Radiology Reading Room ANTI- NUCLEAR ANTIBODY (PRABHJOT)2018-10-04 13:16:00 Test Item Value Reference Range Comments ANTI-NUCLEAR ANTIBODY (PRABHJOT) (BEAKER) (test Positive Negative bznq=844) Test performed by IFA method.PRABHJOT TITER AND [id number] 13:16:00 Test Item Value Reference Range Comments PRABHJOT TITER (BEAKER) (test ssdo=8694) :160 PRABHJOT PATTERN (BEAKER) (test gjgh=3022) [employer] [id number] 10:39:00 Test Item Value Reference Range Comments RPR SCREEN (BEAKER) (test hywa=913) Nonreactive Nonreactive CYTOMEGALOVIRUS ANTIBODY, [id number] 10:15:00 Test Item Value Reference Range Comments CYTOMEGALOVIRUS, IGG (BEAKER) (test iwuh=2261) Positive Negative, Equivocal CMV IgG Result Interpretation: </=0.8 Al Negative 0.9-1.0 Al Equivocal &gt ;/=1.1 Al PositiveCYTOMEGALOVIRUS ANTIBODY, [id number] 10:15:00 Test Item Value Reference Range Comments CYTOMEGALOVIRUS IGM ANTIBODY (BEAKER) (test Negative Negative, Equivocal hzjn=3063) CMV IgM Result Interpretation: </=0.8 Al Negative 0.9-1.0 Al Equivocal >/=1.1 Al PositiveEBV ANTIBODY, [id number] 10:15:00 Test Item Value Reference Range Comments RUPINDER HAGAN VIRAL CAPSID ANTIGEN IGG (BEAKER) Positive Negative, Equivocal (test mxzl=9107) Rupinder Hagan Viral Capsid Antigen IgG Result Interpretation: </=0.8 Al Negative 0.9-1.0 Al Equivocal >/=1.1 Al PositiveEBV ANTIBODY, [id number] 10:15:00 Test Item Value Reference Range Comments RUPINDER HGAAN VIRAL CAPSID ANTIGEN IGM (BEAKER) Negative Negative, Equivocal (test livz=7711) Rupinder Hagan Viral Capsid Antigen IgM Result Interpretation: </=0.8 Al Negative 0.9-1.0 Al Equivocal >/=1.1 Al PositiveHEMOGLOBIN [id number] 20:56:00 Test Item Value Reference Range Comments HEMOGLOBIN A1C (BEAKER) (test ryha=179) 9.2 % 4.3-6.1 [id number] 16:44:00 Test Item Value Reference Range Comments FERRITIN (BEAKER) (test dfkw=303) 33 ng/mL 5-275 HEPATITIS A ANTIBODY, [id number] 16:06:00 Test Item Value Reference Range Comments HEPATITIS A IGG ANTIBODY (BEAKER) (test dhwv=4102) Reactive Nonreactive HEPATITIS B SURFACE [id number] 16:04:00 Test Item Value Reference Range Comments HEPATITIS B SURFACE ANTIBODY (BEAKER) (test < mIU/mL <8.0 pqtu=102) CARCINOEMBRYONIC ANTIGEN (CEA)2018-10-02 16:03:00 Test Item Value Reference Range Comments CARCINOEMBRYONIC ANTIGEN (BEAKER) (test niuo=772) 3.6 ng/mL 0.0-5.0 ALPHA FETOPROTEIN (AFP), TUMOR [id number] 16:03:00 Test Item Value Reference Range Comments ALPHA-FETOPROTEIN (BEAKER) (test matg=4671) 2.6 ng/mL <10.0 HEPATITIS B CORE ANTIBODY, [id number] 16:03:00 Test Item Value Reference Range Comments HEPATITIS B CORE IGM ANTIBODY (BEAKER) (test Nonreactive Nonreactive ultg=844) [id number] 16:03:00 Test Item Value Reference Range Comments ALPHA-1 ANTITRYPSIN (BEAKER) (test erli=442) 184.10 mg/dL 90.00-200.00 HEPATITIS B SURFACE [id number] 15:59:00 Test Item Value Reference Range Comments HEPATITIS B SURFACE ANTIGEN (2) (BEAKER) (test Nonreactive Nonreactive uekg=6916) HEPATITIS C [id number] 15:59:00 Test Item Value Reference Range Comments HEPATITIS C ANTIBODY (BEAKER) (test qfdn=544) Nonreactive Nonreactive HEPATITIS B CORE ANTIBODY, [id number] 15:59:00 Test Item Value Reference Range Comments HEPATITIS B CORE TOTAL ANTIBODY (BEAKER) (test Nonreactive Nonreactive tytx=488) HIV-1 ANTIGEN WITH HIV-1/2 [id number] 15:59:00 Test Item Value Reference Range Comments HIV-1 ANTIGEN WITH HIV 1\T\2 ANTIBODY (2) Nonreactive Nonreactive (BEAKER) (test npte=5589) VITAMIN D, [id number] 15:59:00 Test Item Value Reference Range Comments VITAMIN D 25-OH (BEAKER) (test dups=9194) 13.6 ng/mL 6.6-49.9 Effective 08/22/2017: Reference Range ChangeNew: 6.6-49.9 ng/mL Previous: 13.0 -47.8 ng/mLRecommended Vitamin D Target Range: 30.0-40.0 ng/[id number] 15:54 :00 Test Item Value Reference Range Comments T4 TOTAL (BEAKER) (test yarw=144) 6.7 ug/dL 4.9-11.7 [id number] 15:54:00 Test Item Value Reference Range Comments THYROID STIMULATING HORMONE (BEAKER) (test 3.97 uIU/mL 0.35-4.94 czuj=293) [id number] 15:54:00 Test Item Value Reference Range Comments T3 TOTAL (BEAKER) (test qnid=758) 85 ng/dL 48-159 SCREEN, [id number] 15:46:00 Test Item Value Reference Range Comments TEST URINE (BEAKER) (test dcwr=027) Negative URINALYSIS W/ [id number] 15:46:00 Test Item Value Reference Range Comments COLOR (BEAKER) (test ftzt=684) Yellow CLARITY (BEAKER) (test dlfl=371) Hazy SPECIFIC GRAVITY UA (BEAKER) (test ocnp=974) 1.015 1.001-1.035 PH UA (BEAKER) (test rzry=472) 6.5 5.0-8.0 PROTEIN UA (BEAKER) (test qepc=196) Negative Negative GLUCOSE UA (BEAKER) (test ysqx=234) Negative Negative KETONES UA (BEAKER) (test rmqh=375) Negative Negative BILIRUBIN UA (BEAKER) (test asqp=047) Negative Negative BLOOD UA (BEAKER) (test ycsl=526) Small Negative NITRITE UA (BEAKER) (test ipsd=078) Negative Negative LEUKOCYTE ESTERASE UA (BEAKER) (test kalf=922) Large Negative UROBILINOGEN UA (BEAKER) (test hkjy=679) 2.0 mg/dL 0.2-1.0 RBC UA (BEAKER) (test jsqz=714) 4 /HPF WBC UA (BEAKER) (test spcd=773) 7 /HPF BACTERIA (BEAKER) (test afqc=455) Rare MUCUS (BEAKER) (test zipl=4193) Rare SQUAMOUS EPITHELIAL (BEAKER) (test wqtu=973) 7 /HPF SOURCE(BEAKER) (test oxnh=6663) [id number] 15:40:00 Test Item Value Reference Range Comments TRANSFERRIN (BEAKER) (test mcna=436) 296 mg/dL 174-382 IRON, TIBC, % SAT. (WITHOUT FERRITIN)2018-10-02 15:40:00 Test Item Value Reference Range Comments IRON (BEAKER) (test suvf=714) 34 ug/dL 40-160 TOTAL IRON BINDING CAPACITY (BEAKER) (test 370 ug/dL 250-450 lyxq=493) IRON % SATURATION (2) (BEAKER) (test adgi=2748) 9 % 20-55 PROTHROMBIN [id number] 15:39:00 Test Item Value Reference Range Comments PROTIME (BEAKER) (test yqim=965) 16.1 seconds 11.7-14.7 INR (BEAKER) (test rmzs=577) 1.3 <=5.9 RECOMMENDED COUMADIN/WARFARIN INR THERAPY RANGESSTANDARD DOSE: 2.0 - 3.0 Includes: PROPHYLAXIS forvenous thrombosis, systemic embolization; TREATMENT for venous thrombosis and/or pulmonary embolus.HIGH RISK: Target INR is 2.5-3.5 for patients with mechanical heart valves.URIC [id number] 15:38:00 Test Item Value Reference Range Comments URIC ACID (BEAKER) (test atog=494) 4.1 mg/dL 2.6-7.2 [id number] 15:38:00 Test Item Value Reference Range Comments MAGNESIUM (BEAKER) (test town=304) 1.8 mg/dL 1.6-2.6 [id number] 15:38:00 Test Item Value Reference Range Comments PHOSPHORUS (BEAKER) (test buzd=072) 3.1 mg/dL 2.3-4.7 COMPREHENSIVE METABOLIC [id number] 15:38:00 Test Item Value Reference Range Comments TOTAL PROTEIN (BEAKER) 7.7 gm/dL 6.0-8.3 (test qteh=754) ALBUMIN (BEAKER) (test 3.8 g/dL 3.5-5.0 mfbw=0997) ALKALINE PHOSPHATASE 91 U/L 40-150 (BEAKER) (test vian=521) BILIRUBIN TOTAL (BEAKER) 1.5 mg/dL 0.2-1.2 (test tpgu=221) SODIUM (BEAKER) (test 137 meq/L 136-145 dtpl=412) POTASSIUM (BEAKER) (test 3.9 meq/L 3.5-5.1 kdos=267) CHLORIDE (BEAKER) (test 104 meq/L 98-107 tonm=961) CO2 (BEAKER) (test 27 meq/L 22-29 ylzr=941) BLOOD UREA NITROGEN 8 mg/dL 7-21 (BEAKER) (test aqdw=608) CREATININE (BEAKER) (test 0.79 mg/dL 0.57-1.25 swxs=424) GLUCOSE RANDOM (BEAKER) 149 mg/dL 70-105 (test oykp=627) CALCIUM (BEAKER) (test 9.3 mg/dL 8.4-10.2 rzzz=782) AST (SGOT) (BEAKER) (test 33 U/L 5-34 xqep=016) ALT (SGPT) (BEAKER) (test 15 U/L 6-55 dakl=502) EGFR (BEAKER) (test 72 mL/min/1.73 sq m ESTIMATED GFR IS NOT xtqq=3013) ACCURATE CREATININE CLEARANCE IN PREDICTING GLOMERULAR FILTRATION RATE. ESTIMATED GFR IS NOT APPLICABLE FOR DIALYSIS PATIENTS. LIPID [id number] 15:38:00 Test Item Value Reference Range Comments TRIGLYCERIDES (BEAKER) (test otln=407) 67 mg/dL CHOLESTEROL (BEAKER) (test saal=987) 128 mg/dL HDL CHOLESTEROL (BEAKER) (test xnkt=757) 55 mg/dL LDL CHOLESTEROL CALCULATED (BEAKER) (test 60 mg/dL ncyg=112) Triglyceride Reference Range: Low Risk <150 Borderline 150- 199 High Risk 200-499 Very High Risk >=500Cholesterol Reference Range: Low Risk <200 Borderline 200-239 High Risk > 240HDL Cholesterol Reference Range: Low Risk >=60 High Risk <40LDL Cholesterol Reference Range: Optimal <100 Near Optimal 100-129 Borderline 130-159 High 160-189 Very High >=190BILIRUBIN, [id number] 15:38:00 Test Item Value Reference Range Comments BILIRUBIN DIRECT (BEAKER) (test gsht=724) 0.7 mg/dL 0.1-0.5 GAMMA GLUTAMYL TRANSFERASE (GGT)2018-10-02 15:38:00 Test Item Value Reference Range Comments GAMMA GLUTAMYL TRANSFERASE (BEAKER) (test qjju=204) 26 U/L 9-64 [id number] 15:35:00 Test Item Value Reference Range Comments FIBRINOGEN LEVEL (BEAKER) (test qgys=484) 252 mg/dl 225-434 [id number] 15:35:00 Test Item Value Reference Range Comments PARTIAL THROMBOPLASTIN TIME (BEAKER) (test 35.1 seconds 22.5-36.0 oyxt=169) [id number] 15:26:00 Test Item Value Reference Range Comments ETHANOL (BEAKER) (test ihot=759) < mg/dL <=10 CBC W/PLT COUNT & AUTO [id number] 15:20:00 Test Item Value Reference Range Comments WHITE BLOOD CELL COUNT (BEAKER) (test jpbg=683) 4.7 K/ L 3.5-10.5 RED BLOOD CELL COUNT (BEAKER) (test rgph=789) 3.53 M/ L 3.93-5.22 HEMOGLOBIN (BEAKER) (test lwjr=774) 9.6 GM/DL 11.2-15.7 HEMATOCRIT (BEAKER) (test pxre=509) 31.2 % 34.1-44.9 MEAN CORPUSCULAR VOLUME (BEAKER) (test yfuc=368) 88.4 fL 79.4-94.8 MEAN CORPUSCULAR HEMOGLOBIN (BEAKER) (test 27.2 pg 25.6-32.2 xypl=469) MEAN CORPUSCULAR HEMOGLOBIN CONC (BEAKER) (test 30.8 GM/DL 32.2-35.5 lfec=206) RED CELL DISTRIBUTION WIDTH (BEAKER) (test 14.8 % 11.7-14.4 clfh=849) PLATELET COUNT (BEAKER) (test cfay=666) 94 K/CU MM 150-450 MEAN PLATELET VOLUME (BEAKER) (test chty=493) 11.4 fL 9.4-12.3 NUCLEATED RED BLOOD CELLS (BEAKER) (test 0 /100 WBC 0-0 pdxn=237) NEUTROPHILS RELATIVE PERCENT (BEAKER) (test 83 % upop=750) LYMPHOCYTES RELATIVE PERCENT (BEAKER) (test 9 % lmxw=045) MONOCYTES RELATIVE PERCENT (BEAKER) (test 6 % gpsl=516) EOSINOPHILS RELATIVE PERCENT (BEAKER) (test 1 % onxr=311) BASOPHILS RELATIVE PERCENT (BEAKER) (test 0 % pqri=531) NEUTROPHILS ABSOLUTE COUNT (BEAKER) (test 3.93 K/ L 1.56-6.13 neqw=400) LYMPHOCYTES ABSOLUTE COUNT (BEAKER) (test 0.43 K/ L 1.18-3.74 hkoj=781) MONOCYTES ABSOLUTE COUNT (BEAKER) (test zbnk=750) 0.28 K/ L 0.24-0.36 EOSINOPHILS ABSOLUTE COUNT (BEAKER) (test 0.05 K/ L 0.04-0.36 lvfj=920) BASOPHILS ABSOLUTE COUNT (BEAKER) (test dfwn=170) 0.02 K/ L 0.01-0.08 IMMATURE GRANULOCYTES-RELATIVE PERCENT (BEAKER) 0 % 0-1 (test ozyo=9225) CALCIUM, [id number] 15:05:00 Test Item Value Reference Range Comments CALCIUM IONIZED (BEAKER) (test wmxf=116) 1.12 mmol/L 1.12-1.27 PH, BLOOD (BEAKER) (test cpis=9959) 7.39 CT, MAXILLOFACIAL AREA, WO [id number] 09:11:00Referring: Dr. Mohsen Padron for exam:->FALLin parking garageWhat is the patient's sedation requirement?->No SedationFINAL REPORT CT, MAXILLOFACIAL AREA, WO CONTRAST CLINICAL INDICATION: Head trauma, headacheFALL COMPARISON: None TECHNIQUE: Noncontrast axial CT imaging of the brain and skull. Noncontrast CT images of the maxillofacial region. Sagittal and coronal reformations are also provided in osseous and soft tissue algorithms. DOSE REDUCTION: Dose modulation, iterative reconstruction, and/or weight-based adjustment of the mA/kV was utilized to reduce the radiation dose to as low as reasonably achievable. FINDINGS:Brain:Moderate volume loss with frontal predominance. No evidence of infarct or parenchymal hemorrhage. Basal ganglia calcifications likely embolic. No abnormal extra-axial fluid. No midline shift. There is expected passive expansion of the ventricular volumes. Intact calvarium and skull base. Dense vascular calcifications involving the intracranial circulation. Superficial hematoma overlying the left frontal/ supraorbital convexity. Maxillofacial region:There is no facial bone fracture. Paranasal sinuses reveal mucosal polyposis versus retention cysts bilaterally in the maxillary chambers. Remaining paranasal sinuses are clear. Mastoid air cells are normally pneumatized. Middle ear cavities are unremarkable. Clivus and skull base are intact. The globes are intact. There is no intraconal abnormality. The temporomandibular joints are normally aligned. The mandible isintact. Asymmetric parasymphyseal edema is noted superficial on the left. Multiple dental caries arepresent. The craniocervical junction, including in the , is intact. Sellar region is unremarkable. Visible portions of the upper aerodigestive tract are clear. IMPRESSION: Superficial soft tissue injuries without facial fracture. No traumatic intracranial abnormality. Signed: JR De Anda Robert MDReport Verified Date/Time: 10/02/2018 09:11:30 Reading Location: [facility] C013 Neuro Reading Room CT, BRAIN, WITHOUT [id number] 09:02:00Referring: Dr. Mohsen Padron for exam:->FALLin parking garageWhat is the patient's sedation requirement?->No SedationFINAL REPORT CT, BRAIN, WITHOUT CONTRAST CLINICAL INDICATION: Head trauma, headacheFALL COMPARISON: None TECHNIQUE: Noncontrast axial CT imaging of the brain and skull. Noncontrast CT images of the maxillofacial region. Sagittal and coronal reformations are also provided in osseous and soft tissue algorithms. DOSE REDUCTION: Dose modulation, iterative reconstruction, and/or weight-based adjustment of the mA/kV was utilized to reduce the radiation dose to as low as reasonably achievable. FINDINGS:Brain:Moderate volume loss with frontal predominance. No evidence of infarct or parenchymal hemorrhage. Basal ganglia calcifications likely embolic. No abnormal extra-axial fluid.No midline shift. There is expected passive expansion of the ventricular volumes. Intact calvarium and skull base. Dense vascular calcifications involving the intracranial circulation. Superficial hematoma overlying the left frontal/ supraorbital convexity. Maxillofacial region:There is no facial bone fracture. Paranasal sinuses [...] on the left. Multiple dental caries are present.The craniocervical junction, including in the , is intact. Sellar region is unremarkable. Visible portions of the upper aerodigestive tract are clear. IMPRESSION: Superficial soft tissue injuries without facial fracture. No traumatic intracranial abnormality. Signed: JR De Anda Robert MDReportVerified Date/Time: 10/02/2018 09:02:30 Reading Location: [facility] C013V Neuro Reading Room RAD, KNEE, 3 VIEWS, [id number] 08:59:00Referring: Dr. Mohsen Gastelum Reason for exam:->FALL in parking garageFINAL REPORT Right knee, 10/02/2018 Four views of the right knee disclose no evidence of displaced fracture or dislocation. A knee effusion is suggested. There is minor sharpening of the lateral tibial spine consistent with minimal degenerative change. No further osseous abnormalities are identified. Signed: Elida Veras MDReport Verified Date/Time : 10/02/2018 08:59:15 Reading Location: [facility] Diagnostic Imaging Reading Room - [facility] [id number] Electronically signed by: ELIDA VERAS M.D. on 2017 08:59 AMMR, ABDOMEN, [id number] 16:04:00Referring: Dr. Mohsen Estrellairrhosis assess for HCCFINAL REPORT TECHNIQUE: MRI of the abdomen WITHOUT and WITH intravenous contrast. INDICATION: 68-year- old woman with cirrhosis. COMPARISON: Abdomen ultrasound 08/30/2017, abdomenMRI 09/22/2015. FINDINGS: LOWER THORAX: Moderate right pleural effusion. LIVER: Cirrhotic morphology of the liver. No suspicious hepatic lesions. Decreased size from 3.3 cm to 2.3 cm of the nonenhancing cyst in segment VIII. 0.5 cm arterially enhancing focus in the periphery of segment V without corresponding T2 signal on a rounded, washout, or capsule is likely a shunt.BILIARY: Prior cholecystectomy. No biliary ductal dilatation or filling defect.SPLEEN: The spleen is enlarged, measuring 14 cm in the craniocaudal dimension.PANCREAS: No focal masses or ductal dilatation. ADRENALS: No adrenal nodules.KIDNEYS/URETERS : No hydronephrosis or solid mass lesions. Unchanged subcentimeter right renal cyst. PERITONEUM/RETROPERITONEUM: Trace ascites.LYMPH NODES: No lymphadenopathy.VESSELS: Slightly increased nonocclusive thrombus in the main portal and superior mesenteric veins since 09/22/2015. Nonocclusive thrombus in the left portal vein, new since 09/22/2015. Main portal vein measures 1.5 cm in diameter. GI TRACT: Artifact in the region of the stomach, likely related to an metallic object/device. Nodistention or wall thickening. BONES AND SOFT TISSUES : Degenerative changes of the visualized spine.Incompletely evaluated umbilical hernia contains ascitic fluid and possibly a loop of small bowel. OTHER FINDINGS : Incompletely evaluated 9.9 cm cystic structure in the right lower quadrant. IMPRESSION:Cirrhosis with portal hypertension and trace ascites. No suspicious hepatic lesions. Slightly increased nonocclusive thrombus in the main portal and superior mesenteric vein since 09/22/2015. Nonocclusive thrombus in the left portal vein, new since 09/22/2015. Incompletely evaluated cystic structure in the right lower quadrant. Abdomen and pelvis CT may be obtained for further evaluation of this cystic structure. Signed: Jr Bolanos MDReport Verified Date/Time: 09/13/2018 16:04:39 Reading Location: [address] Ultrasound Reading Room Electronically signed by: JR BOLANOS MD on 2017 04:04 [id number] 12:33:00 Test Item Value Reference Range Comments POC-CREATININE (BEAKER) 1.1 mg/dL 0.6-1.3 TESTED AT [facility] [address] (test wryy=8137) [facility] [address] POC-EGFR (BEAKER) (test 49 mL/min/1.73M2 ttes=4142) ALPHA FETOPROTEIN (AFP), TUMOR [id number] 13:45:00 Test Item Value Reference Range Comments ALPHA-FETOPROTEIN (BEAKER) (test mdrv=7439) 2.7 ng/mL <10.0 BASIC METABOLIC [id number] 13:24:00 Test Item Value Reference Range Comments SODIUM (BEAKER) (test 131 meq/L 136-145 euiy=581) POTASSIUM (BEAKER) (test 4.3 meq/L 3.5-5.1 phfd=433) CHLORIDE (BEAKER) (test 95 meq/L 98-107 wpkm=573) CO2 (BEAKER) (test 28 meq/L 22-29 zylj=820) BLOOD UREA NITROGEN 13 mg/dL 7-21 (BEAKER) (test svvl=756) CREATININE (BEAKER) (test 1.42 mg/dL 0.57-1.25 xxtk=178) GLUCOSE RANDOM (BEAKER) 506 mg/dL 70-105 (test wpdd=830) CALCIUM (BEAKER) (test 9.6 mg/dL 8.4-10.2 rtrb=456) EGFR (BEAKER) (test 37 mL/min/1.73 sq m ESTIMATED GFR IS NOT xilz=8201) ACCURATE CREATININE CLEARANCE IN PREDICTING GLOMERULAR FILTRATION RATE. ESTIMATED GFR IS NOT APPLICABLE FOR DIALYSIS PATIENTS. HEPATIC FUNCTION [id number] 12:48:00 Test Item Value Reference Range Comments TOTAL PROTEIN (BEAKER) (test mrak=819) 8.0 gm/dL 6.0-8.3 ALBUMIN (BEAKER) (test dumm=7484) 3.9 g/dL 3.5-5.0 BILIRUBIN TOTAL (BEAKER) (test ggwk=923) 0.7 mg/dL 0.2-1.2 BILIRUBIN DIRECT (BEAKER) (test qzlc=379) 0.4 mg/dL 0.1-0.5 ALKALINE PHOSPHATASE (BEAKER) (test rodh=967) 172 U/L 40-150 AST (SGOT) (BEAKER) (test exty=885) 15 U/L 5-34 ALT (SGPT) (BEAKER) (test yfnn=516) 12 U/L 6-55 CBC W/PLT COUNT & AUTO [id number] 12:36:00 Test Item Value Reference Range Comments WHITE BLOOD CELL COUNT (BEAKER) (test ajhf=908) 3.6 K/ L 3.5-10.5 RED BLOOD CELL COUNT (BEAKER) (test ufcr=139) 3.32 M/ L 3.93-5.22 HEMOGLOBIN (BEAKER) (test rbjr=999) 9.3 GM/DL 11.2-15.7 HEMATOCRIT (BEAKER) (test ajhz=321) 28.5 % 34.1-44.9 MEAN CORPUSCULAR VOLUME (BEAKER) (test toqj=170) 85.8 fL 79.4-94.8 MEAN CORPUSCULAR HEMOGLOBIN (BEAKER) (test 28.0 pg 25.6-32.2 crdp=485) MEAN CORPUSCULAR HEMOGLOBIN CONC (BEAKER) (test 32.6 GM/DL 32.2-35.5 dnsw=240) RED CELL DISTRIBUTION WIDTH (BEAKER) (test 16.3 % 11.7-14.4 wftj=382) PLATELET COUNT (BEAKER) (test muqb=470) 71 K/CU MM 150-450 MEAN PLATELET VOLUME (BEAKER) (test cwsb=855) 11.1 fL 9.4-12.3 NUCLEATED RED BLOOD CELLS (BEAKER) (test 0 /100 WBC 0-0 talp=499) NEUTROPHILS RELATIVE PERCENT (BEAKER) (test 81 % mokd=207) LYMPHOCYTES RELATIVE PERCENT (BEAKER) (test 10 % vrnw=302) MONOCYTES RELATIVE PERCENT (BEAKER) (test 7 % kkct=598) EOSINOPHILS RELATIVE PERCENT (BEAKER) (test 1 % mcsw=474) BASOPHILS RELATIVE PERCENT (BEAKER) (test 1 % qnok=279) NEUTROPHILS ABSOLUTE COUNT (BEAKER) (test 2.90 K/ L 1.56-6.13 ydhk=874) LYMPHOCYTES ABSOLUTE COUNT (BEAKER) (test 0.35 K/ L 1.18-3.74 tzal=343) MONOCYTES ABSOLUTE COUNT (BEAKER) (test moaq=220) 0.26 K/ L 0.24-0.36 EOSINOPHILS ABSOLUTE COUNT (BEAKER) (test 0.05 K/ L 0.04-0.36 ohbf=083) BASOPHILS ABSOLUTE COUNT (BEAKER) (test dscd=619) 0.02 K/ L 0.01-0.08 IMMATURE GRANULOCYTES-RELATIVE PERCENT (BEAKER) 0 % 0-1 (test bowz=2797) PROTHROMBIN [id number] 12:32:00 Test Item Value Reference Range Comments PROTIME (BEAKER) (test tptv=182) 15.9 seconds 11.7-14.7 INR (BEAKER) (test pdkm=511) 1.3 <=5.9 RECOMMENDED COUMADIN/WARFARIN INR THERAPY RANGESSTANDARD DOSE: 2.0 - 3.0 Includes: PROPHYLAXIS forvenous thrombosis, systemic embolization; TREATMENT for venous thrombosis and/or pulmonary embolus.HIGH RISK: Target INR is 2.5-3.5 for patients with mechanical heart valves.[id number] 11:00:00 Test Item Value Reference Range Comments FERRITIN (BEAKER) (test mkoy=898) 34 ng/mL 5-275 HEPATIC FUNCTION [id number] 10:44:00 Test Item Value Reference Range Comments TOTAL PROTEIN (BEAKER) (test lgve=555) 7.4 gm/dL 6.0-8.3 ALBUMIN (BEAKER) (test dkiz=6370) 3.6 g/dL 3.5-5.0 BILIRUBIN TOTAL (BEAKER) (test phcx=084) 0.7 mg/dL 0.2-1.2 BILIRUBIN DIRECT (BEAKER) (test himl=515) 0.3 mg/dL 0.1-0.5 ALKALINE PHOSPHATASE (BEAKER) (test fydl=011) 109 U/L 40-150 AST (SGOT) (BEAKER) (test awqv=603) 23 U/L 5-34 ALT (SGPT) (BEAKER) (test ajqu=496) 16 U/L 6-55 BASIC METABOLIC [id number] 10:44:00 Test Item Value Reference Range Comments SODIUM (BEAKER) (test 138 meq/L 136-145 ugcw=413) POTASSIUM (BEAKER) (test 4.4 meq/L 3.5-5.1 ukon=840) CHLORIDE (BEAKER) (test 106 meq/L 98-107 ikva=990) CO2 (BEAKER) (test 25 meq/L 22-29 gnaz=980) BLOOD UREA NITROGEN 14 mg/dL 7-21 (BEAKER) (test eumz=527) CREATININE (BEAKER) (test 0.93 mg/dL 0.57-1.25 yigz=279) GLUCOSE RANDOM (BEAKER) 90 mg/dL 70-105 (test ilzc=544) CALCIUM (BEAKER) (test 8.7 mg/dL 8.4-10.2 ejcd=381) EGFR (BEAKER) (test 60 mL/min/1.73 sq m ESTIMATED GFR IS NOT qjxd=7906) ACCURATE CREATININE CLEARANCE IN PREDICTING GLOMERULAR FILTRATION RATE. ESTIMATED GFR IS NOT APPLICABLE FOR DIALYSIS PATIENTS. IRON, TIBC, % SAT. (WITHOUT FERRITIN)2017-09-26 10:39:00 Test Item Value Reference Range Comments IRON (BEAKER) (test rsmj=859) 37 ug/dL 40-160 TOTAL IRON BINDING CAPACITY (BEAKER) (test 365 ug/dL 250-450 bfky=420) IRON % SATURATION (2) (BEAKER) (test tmvr=9661) 10 % 20-55 CBC W/PLT COUNT & AUTO [id number] 10:26:00 Test Item Value Reference Range Comments WHITE BLOOD CELL COUNT (BEAKER) (test sfrw=759) 3.9 K/ L 3.5-10.5 RED BLOOD CELL COUNT (BEAKER) (test awnc=784) 3.85 M/ L 3.93-5.22 HEMOGLOBIN (BEAKER) (test zuji=585) 9.1 GM/DL 11.2-15.7 HEMATOCRIT (BEAKER) (test rcxt=832) 30.6 % 34.1-44.9 MEAN CORPUSCULAR VOLUME (BEAKER) (test frwv=424) 79.5 fL 79.4-94.8 MEAN CORPUSCULAR HEMOGLOBIN (BEAKER) (test 23.6 pg 25.6-32.2 eyep=521) MEAN CORPUSCULAR HEMOGLOBIN CONC (BEAKER) (test 29.7 GM/DL 32.2-35.5 ohkc=520) RED CELL DISTRIBUTION WIDTH (BEAKER) (test 23.3 % 11.7-14.4 krif=519) PLATELET COUNT (BEAKER) (test sizd=880) 89 K/CU MM 150-450 MEAN PLATELET VOLUME (BEAKER) (test fwrv=320) 11.5 fL 9.4-12.3 NUCLEATED RED BLOOD CELLS (BEAKER) (test 0 /100 WBC 0-0 ywye=543) NEUTROPHILS RELATIVE PERCENT (BEAKER) (test 80 % ayvb=646) LYMPHOCYTES RELATIVE PERCENT (BEAKER) (test 11 % abim=243) MONOCYTES RELATIVE PERCENT (BEAKER) (test 7 % lssm=266) EOSINOPHILS RELATIVE PERCENT (BEAKER) (test 2 % szam=811) BASOPHILS RELATIVE PERCENT (BEAKER) (test 1 % uskm=183) NEUTROPHILS ABSOLUTE COUNT (BEAKER) (test 3.09 K/ L 1.56-6.13 wgrf=947) LYMPHOCYTES ABSOLUTE COUNT (BEAKER) (test 0.42 K/ L 1.18-3.74 mvdt=094) MONOCYTES ABSOLUTE COUNT (BEAKER) (test ffja=200) 0.27 K/ L 0.24-0.36 EOSINOPHILS ABSOLUTE COUNT (BEAKER) (test 0.07 K/ L 0.04-0.36 mfvb=644) BASOPHILS ABSOLUTE COUNT (BEAKER) (test nmnz=870) 0.02 K/ L 0.01-0.08 IMMATURE GRANULOCYTES-RELATIVE PERCENT (BEAKER) 0 % 0-1 (test zent=8177) PROTHROMBIN [id number] 10:19:00 Test Item Value Reference Range Comments PROTIME (BEAKER) (test ehgo=592) 15.6 seconds 11.7-14.7 INR (BEAKER) (test pxbo=061) 1.3 <=5.9 RECOMMENDED COUMADIN/WARFARIN INR THERAPY RANGESSTANDARD DOSE: 2.0 - 3.0 Includes: PROPHYLAXIS forvenous thrombosis, systemic embolization; TREATMENT for venous thrombosis and/or pulmonary embolus.HIGH RISK: Target INR is 2.5-3.5 for patients with mechanical heart valves.RAD, CHEST, 2 [id number] 09:58: 00Reason for Exam:->follow up pleural effusion, [...] are present. No acute osseousabnormality. Signed: Neha Roth MDReport Verified Date/Time: 09/26/2017 09:58:49 Reading Location: [facility] Mammo Reading Room BODY FLUID CULTURE + GRAM [id number] 08:01:00 Test Item Value Reference Range Comments CULTURE (BEAKER) (test xczb=9178) No growth GRAM STAIN RESULT (BEAKER) (test <1+ WBCs uvgc=2343) GRAM STAIN RESULT (BEAKER) (test No organisms seen uxmw=77643) [id number] 21:07:00Medical Cytology Report Case: [id number] Authorizing Provider: Nakia Chamorro MD Collected: 08/30/2017 1600 Ordering Location: [facility] Radiology Ultrasound Received: 08/31/2017 1011 Pathologist: Maricruz Nixon MD Specimen: Peritoneal Fluid PERITONEAL FLUID (CYTOSPINS): - NO MALIGNANT CELLS IDENTIFIED Signing Pathologist Direct Phone Line: Cytospins show mesothelial cells, macrophages and mixed inflammatory cells. Mild atypia is seen in the range of reactive changes. No diagnostic features of malignancy are seen. Clinical correlation is recommended. [id number]; liver cirrhosis PERITONEAL FLUID4 cytospins kfogkhcy1143 ml yellow fluidCollected: [id number]: [id number] [facility], Department of Pathology, [address] [place] [address], [facility], [facility] of [facility], [address] [place] [address], IRED FLUID CELL COUNT WITH [id number] 10 :35:00 Test Item Value Reference Range Comments APPEARANCE FLUID (BEAKER) (test owzp=641) Clear Clear COLOR FLUID (BEAKER) (test fksv=387) Yellow Colorless, Straw Pale yellow RBC FLUID (BEAKER) (test lbpr=344) 213 /cu mm <=1 ADJUSTED WBC FLUID (BEAKER) (test pfcl=8730) 78 /cu mm <=5 LINING CELLS (BEAKER) (test xzlr=5478) 2 /cu mm <=1 NEUTROPHILS FLUID (BEAKER) (test ydvo=7128) 9 % LYMPHS FLUID (BEAKER) (test qvnx=431) 14 % MONO/MACROPHAGE FLUID (BEAKER) (test 77 % gfsw=690) EOSINOPHILS FLUID (BEAKER) (test ezwr=001) 0 % BASO FLUID (BEAKER) (test wgpj=666) 0 % CONTAINER BODY FLUID (BEAKER) (test EDTA Tube ijdg=0411) TRIGLYCERIDES, BODY [id number] 09:34:00 Test Item Value Reference Range Comments TRIGLYCERIDES FLUID (BEAKER) (test nrhh=427) < mg/dL Reference Range: No Normals Assay performance has not been validated for this type of specimen.ALBUMIN, BODY [id number] 09:34:00 Test Item Value Reference Range Comments ALBUMIN FLUID (BEAKER) (test ebzh=241) 0.4 gm/dL Reference Range: No Normals Assay performance has not been validated for this type of specimen.PROTEIN, BODY [id number] 09:34:00 Test Item Value Reference Range Comments PROTEIN FLUID (BEAKER) (test ykiw=439) < g/dL Absence of reference range indicates that normals have not been defined.Assay performance has not been validated for this type of specimen.CT, CHEST, WITHOUT [id number] 17:13:00FINAL REPORT TECHNIQUE: CT scan of the [...] right lower lobe pulmonary nodule. Signed: Jr Bolanos MDReport Verified Date/Time: 08/30/2017 17:13:58 Reading Location: [facility] C0[facility] CT Body Reading Room U/S, ABDOMINAL, WITH [id number] 16:44:00Reason for Exam:->cirrhosis, screen for HCC, evaluate [...] Verified Date/Time: 08/30/2017 16:44: 30 Reading Location: [address] Ultrasound Reading Room U/S, [id number] 16:06:00Please send ascitic fluid for cell [...] skin and deep soft tissues. A 5 Finnish multi-sidehole catheter was inserted and removed from the peritoneal space and approximately 1050 milliliters of clear yellow fluid was aspirated from the abdomen. Specimens were collected for the lab. There were no immediate complications. Impression: Successful ultrasound guided paracentesis with aspiration of 1050 mL of clear yellow fluid. Signed: Tanner Quintanilla MDReport Verified Date/Time: 08/30/2017 16:06:12 Reading Location: [address] Ultrasound Reading Room Electronically signed by: TANNER QUINTANILLA MD on 04:06 PMALPHA FETOPROTEIN (AFP), TUMOR [id number] 15:39:00 Test Item Value Reference Range Comments ALPHA-FETOPROTEIN (BEAKER) (test qhuv=2388) 3.3 ng/mL <10.0 CBC W/PLT COUNT & AUTO [id number] 15:31:00 Test Item Value Reference Range Comments WHITE BLOOD CELL COUNT (BEAKER) (test mthb=399) 4.4 K/ L 3.5-10.5 RED BLOOD CELL COUNT (BEAKER) (test mgoq=656) 4.22 M/ L 3.93-5.22 HEMOGLOBIN (BEAKER) (test nieh=570) 9.4 GM/DL 11.2-15.7 HEMATOCRIT (BEAKER) (test kjkj=160) 31.8 % 34.1-44.9 MEAN CORPUSCULAR VOLUME (BEAKER) (test oqza=117) 75.4 fL 79.4-94.8 MEAN CORPUSCULAR HEMOGLOBIN (BEAKER) (test 22.3 pg 25.6-32.2 fwyl=374) MEAN CORPUSCULAR HEMOGLOBIN CONC (BEAKER) (test 29.6 GM/DL 32.2-35.5 bxks=276) RED CELL DISTRIBUTION WIDTH (BEAKER) (test 20.0 % 11.7-14.4 dlrp=331) PLATELET COUNT (BEAKER) (test urtj=526) 89 K/CU MM 150-450 MEAN PLATELET VOLUME (BEAKER) (test mlvm=664) 10.2 fL 9.4-12.3 NUCLEATED RED BLOOD CELLS (BEAKER) (test 0 /100 WBC 0-0 ihga=110) NEUTROPHILS RELATIVE PERCENT (BEAKER) (test 84 % mnyp=592) LYMPHOCYTES RELATIVE PERCENT (BEAKER) (test 8 % ckji=369) MONOCYTES RELATIVE PERCENT (BEAKER) (test 8 % jhcp=955) EOSINOPHILS RELATIVE PERCENT (BEAKER) (test 0 % kgyo=257) BASOPHILS RELATIVE PERCENT (BEAKER) (test 0 % merk=948) NEUTROPHILS ABSOLUTE COUNT (BEAKER) (test 3.65 K/ L 1.56-6.13 rbtb=721) LYMPHOCYTES ABSOLUTE COUNT (BEAKER) (test 0.34 K/ L 1.18-3.74 xjkt=372) MONOCYTES ABSOLUTE COUNT (BEAKER) (test wyfg=384) 0.34 K/ L 0.24-0.36 EOSINOPHILS ABSOLUTE COUNT (BEAKER) (test 0.01 K/ L 0.04-0.36 tfbr=768) BASOPHILS ABSOLUTE COUNT (BEAKER) (test meho=261) 0.01 K/ L 0.01-0.08 IMMATURE GRANULOCYTES-RELATIVE PERCENT (BEAKER) 1 % 0-1 (test gdjt=9722) HEPATIC FUNCTION [id number] 15:15:00 Test Item Value Reference Range Comments TOTAL PROTEIN (BEAKER) (test pipw=767) 8.4 gm/dL 6.0-8.3 ALBUMIN (BEAKER) (test kqag=9308) 4.0 g/dL 3.5-5.0 BILIRUBIN TOTAL (BEAKER) (test gijl=949) 1.0 mg/dL 0.2-1.2 BILIRUBIN DIRECT (BEAKER) (test riix=655) 0.5 mg/dL 0.1-0.5 ALKALINE PHOSPHATASE (BEAKER) (test sljo=396) 106 U/L 40-150 AST (SGOT) (BEAKER) (test hudr=700) 29 U/L 5-34 ALT (SGPT) (BEAKER) (test zyzz=439) 17 U/L 6-55 BASIC METABOLIC [id number] 15:15:00 Test Item Value Reference Range Comments SODIUM (BEAKER) (test 140 meq/L 136-145 cxod=687) POTASSIUM (BEAKER) (test 3.6 meq/L 3.5-5.1 dziq=790) CHLORIDE (BEAKER) (test 105 meq/L 98-107 exsz=072) CO2 (BEAKER) (test 25 meq/L 22-29 ssjq=124) BLOOD UREA NITROGEN 11 mg/dL 7-21 (BEAKER) (test fwhb=870) CREATININE (BEAKER) (test 0.76 mg/dL 0.57-1.25 hpee=019) GLUCOSE RANDOM (BEAKER) 62 mg/dL 70-105 (test uikx=158) CALCIUM (BEAKER) (test 9.3 mg/dL 8.4-10.2 wukr=054) EGFR (BEAKER) (test 75 mL/min/1.73 sq m ESTIMATED GFR IS NOT ecjh=9652) ACCURATE CREATININE CLEARANCE IN PREDICTING GLOMERULAR FILTRATION RATE. ESTIMATED GFR IS NOT APPLICABLE FOR DIALYSIS PATIENTS. PROTHROMBIN [id number] 15:06:00 Test Item Value Reference Range Comments PROTIME (BEAKER) (test akqf=656) 16.5 seconds 11.7-14.7 INR (BEAKER) (test qwbe=823) 1.3 <=5.9 RECOMMENDED COUMADIN/WARFARIN INR THERAPY RANGESSTANDARD DOSE: 2.0 - 3.0 Includes: PROPHYLAXIS forvenous thrombosis, systemic embolization; TREATMENT for venous thrombosis and/or pulmonary embolus.HIGH RISK: Target INR is 2.5-3.5 for patients with mechanical heart valves.ALPHA FETOPROTEIN (AFP), TUMOR [id number] 14:27:00 Test Item Value Reference Range Comments ALPHA-FETOPROTEIN (BEAKER) (test wjfv=2531) 4.0 ng/mL <10.0 Effective 09/29/2014: Reference Range ChangeNew: <10.0 Previous: 0.0- 8.0HEPATIC FUNCTION [id number] 13:59:00 Test Item Value Reference Range Comments TOTAL PROTEIN (BEAKER) (test meds=864) 7.9 gm/dL 6.0-8.3 ALBUMIN (BEAKER) (test crcp=8485) 3.9 g/dL 3.5-5.0 BILIRUBIN TOTAL (BEAKER) (test odoj=561) 0.8 mg/dL 0.2-1.2 BILIRUBIN DIRECT (BEAKER) (test svwe=286) 0.4 mg/dL 0.1-0.5 ALKALINE PHOSPHATASE (BEAKER) (test ldya=916) 108 U/L 40-150 AST (SGOT) (BEAKER) (test kpsd=811) 35 U/L 5-34 ALT (SGPT) (BEAKER) (test iyvu=679) 24 U/L 6-55 BASIC METABOLIC [id number] 13:59:00 Test Item Value Reference Range Comments SODIUM (BEAKER) (test 140 meq/L 136-145 oxtb=262) POTASSIUM (BEAKER) (test 4.1 meq/L 3.5-5.1 rcww=123) CHLORIDE (BEAKER) (test 107 meq/L 98-107 iuuj=263) CO2 (BEAKER) (test 28 meq/L 22-29 bduh=716) BLOOD UREA NITROGEN 12 mg/dL 7-21 (BEAKER) (test lmrp=791) CREATININE (BEAKER) (test 0.81 mg/dL 0.57-1.25 sntf=669) GLUCOSE RANDOM (BEAKER) 61 mg/dL 70-105 (test gvhp=992) CALCIUM (BEAKER) (test 9.5 mg/dL 8.4-10.2 svww=999) EGFR (BEAKER) (test 70 mL/min/1.73 sq m ESTIMATED GFR IS NOT qakh=8486) ACCURATE CREATININE CLEARANCE IN PREDICTING GLOMERULAR FILTRATION RATE. ESTIMATED GFR IS NOT APPLICABLE FOR DIALYSIS PATIENTS. PROTHROMBIN TIME/[id number] 13:42:00 Test Item Value Reference Range Comments PROTIME (BEAKER) (test kcrv=620) 14.8 seconds 11.7-14.7 INR (BEAKER) (test dcor=834) 1.2 <=5.9 RECOMMENDED COUMADIN/WARFARIN INR THERAPY RANGESSTANDARD DOSE: 2.0 - 3.0 Includes: PROPHYLAXIS forvenous thrombosis, systemic embolization; TREATMENT for venous thrombosis and/or pulmonary embolus.HIGH RISK: Target INR is 2.5-3.5 for patients with mechanical heart valves.CBC W/PLT COUNT & AUTO [id number] 13:35:00 Test Item Value Reference Range Comments WHITE BLOOD CELL COUNT (BEAKER) (test tyzq=253) 4.0 K/ L 4.0-10.0 RED BLOOD CELL COUNT (BEAKER) (test zqcv=342) 3.60 M/ L 4.00-5.00 HEMOGLOBIN (BEAKER) (test uhri=230) 10.2 GM/DL 12.0-15.0 HEMATOCRIT (BEAKER) (test ahmq=373) 29.8 % 36.0-45.0 MEAN CORPUSCULAR VOLUME (BEAKER) (test uyfl=491) 82.7 fL 82.0-99.0 MEAN CORPUSCULAR HEMOGLOBIN (BEAKER) (test 28.4 pg 27.0-33.0 yady=259) MEAN CORPUSCULAR HEMOGLOBIN CONC (BEAKER) (test 34.4 GM/DL 32.0-36.0 nrcs=432) RED CELL DISTRIBUTION WIDTH (BEAKER) (test 15.3 % 10.3-14.2 xfdc=479) PLATELET COUNT (BEAKER) (test rxfh=616) 81 K/CU MM 150-430 MEAN PLATELET VOLUME (BEAKER) (test dexs=384) 9.3 fL 6.5-10.5 NUCLEATED RED BLOOD CELLS (BEAKER) (test 0 /100 WBC 0-0 hkfp=150) NEUTROPHILS RELATIVE PERCENT (BEAKER) (test 76 % dvsv=456) LYMPHOCYTES RELATIVE PERCENT (BEAKER) (test 14 % xsmg=227) MONOCYTES RELATIVE PERCENT (BEAKER) (test 7 % amyw=304) EOSINOPHILS RELATIVE PERCENT (BEAKER) (test 1 % rnnr=272) BASOPHILS RELATIVE PERCENT (BEAKER) (test 2 % hexs=359) NEUTROPHILS ABSOLUTE COUNT (BEAKER) (test 3.03 K/ L 1.80-8.00 hwmk=615) LYMPHOCYTES ABSOLUTE COUNT (BEAKER) (test 0.56 K/ L 1.48-4.50 hpui=690) MONOCYTES ABSOLUTE COUNT (BEAKER) (test qsoo=899) 0.28 K/ L 0.00-1.30 EOSINOPHILS ABSOLUTE COUNT (BEAKER) (test 0.05 K/ L 0.00-0.50 sqhc=710) BASOPHILS ABSOLUTE COUNT (BEAKER) (test kzcu=976) 0.07 K/ L 0.00-0.20 0.00
[2019-02-12 19:28] LABS: Absolute Lymphocytes (CBC) 0.3 K/uL (0.7-4.9); Absolute Monocytes 0.4 K/uL (0.1-1.3); Absolute Neutrophil 3.6 K/uL (1.8-8.0); Basophils % 1.2 % (0-1.3); Eosinophils % 2.1 % (0-4.4); Hematocrit 24.5 % (36.0-45.0); Lymphocytes % 7.3 % (15.3-44.8); Monocytes % 8.4 % (3.3-12.3); RBC Red Blood Cell Count 3.41 M/uL (3.86-4.86)
[2019-02-12 19:48] LABS: Bilirubin Direct 0.4 mg/dL (0-0.2); Bilirubin Total 0.9 mg/dL (0.2-1.0); C-Reactive Protein 98.3 mg/L (<3.00); CKMB Creatine Kinase MB 3.8 ng/mL (0.3-3.6); Potassium 4.1 mmol/L (3.5-5.1)
[2019-02-12 20:09] LABS: Thyroid Stimulating Hormone 6.33 uIU/mL (0.360-3.740)
[2019-02-12 20:13] LABS: Protime INR 1.21
--- NOTE | 2019-02-12 20:46 | RAD REPORT ---
EXAM DESCRIPTION: Laurie Single View02/12/2019 6:44 pm CLINICAL HISTORY: Abdominal pain COMPARISON: 2017 FINDINGS: Moderate right pleural effusion with right basilar atelectasis Left lung appears clear The heart is normal size
--- NOTE | 2019-02-12 20:57 | RAD REPORT ---
EXAM DESCRIPTION: CT - Abdomen Pelvis W Contrast - 02/12/2019 8:37 pm CLINICAL HISTORY: Abdominal pain. COMPARISON: June 2018 TECHNIQUE: Computed axial tomography of the abdomen and pelvis was obtained. 100 cc Isovue-300 is ad ministered intravenously. Oral contrast was given. All CT scans are performed using dose optimization technique as appropriate and may include automated exposure control or mA/KV adjustment according to patient size. FINDINGS: A cirrhotic liver with inhomogeneous density is again demonstrated. A cyst is unchanged. The portal v ein is patent. The gallbladder has been removed. The spleen is mildly to moderately enlarged. The pancreas, adrenals and left kidney are unremarkable. Mild right hydronephrosis is present. An extrarenal pelvis is present. Portions the right ureter are mildly dilated. There is no evidence of diverticulitis. An umbilical hernia has a neck 2.3 centimeters. It contains herniated fat measuring up to 7 centimete rs. It contains a small amount of ascites. Bilateral inguinal hernias contain ascites. Overall there is a a relatively small amount of ascites. The wall of the stomach appears thickened. Mucosal folds of small bowel are thickened. IMPRESSION: Cirrhotic inhomogeneous liver consistent with parenchymal disease. Thickened wall of the stomach and mucosal folds of small bowel probably related to hypoalbuminemia. I nflammation can also have this appearance. Umbilical hernia and bilateral inguinal hernias Mild right hydronephrosis and right hydroureter
--- NOTE | 2019-02-12 21:02 | RAD REPORT ---
EXAM DESCRIPTION: CT - Thorax Wo Con - 02/12/2019 8:54 pm CLINICAL HISTORY: Shortness of breath COMPARISON: February 12, 2019 chest x-ray TECHNIQUE: Computed axial tomography of the chest was obtained. Contrast was not requested. All CT scans are performed using dose optimization technique as appropriate and may include automated exposure control or mA/KV adjustment according to patient size. FINDINGS: The evaluation of mediastinum, marissa and vessels is limited secondary to lack of IV contras t administration. Moderate right pleural effusion with basilar atelectasis The remainder of the lungs are clear. A pericardial effusion is not noted. No mediastinal or hilar lymphadenopathy IMPRESSION: Moderate right pleural effusion with right basilar atelectasis
[2019-02-12 21:04] LABS: Blood Morphology Comment NOTED (NOT SEEN); Hypochromasia 1+; Platelet Estimate DECR; Polychromasia 1+; Urine White Blood Cell Casts OK
[2019-02-12 21:51] LABS: Urine Blood 1+ (NEG); Urine Glucose NEGATIVE (NEG); Urine Protein NEGATIVE (NEG)
[2019-02-12 22:10] LABS: Urine Bacteria NONE SEEN /HPF (<20); Urine RBC NONE SEEN /HPF (NONE SEEN)
[2019-02-12 22:11] LABS: Urine Culture Reflex Order NOT NEEDED
--- NOTE | 2019-02-12 22:13 | ER ---
Nurse's Notes [facility] Name: Christie Solitario Age: 68 yrs Sex: Female : 1950 Arrival Date: 02/12/2019 Time: 17:25 Bed 20 Private MD: Diagnosis: Fluid overload;Unspecified cirrhosis of liver;Umbilical hernia without obstruction or gangrene Presentation: 02/12 17:41 Presenting complaint: Patient states: "I've had a hernia since 2014 and today it aa5 started draining clear liquid". Pt c/o mild pain to site. Transition of care: patient was not received from another setting of care. Onset of symptoms was February 12, 2019. Risk Assessment: Do you want to hurt yourself or someone else? Patient reports no desire to harm self or others. Initial Sepsis Screen: Does the patient meet any 2 criteria? No. Patient's initial sepsis screen is negative. Does the patient have a suspected source of infection? No. Patient's initial sepsis screen is negative. Care prior to arrival: None. 17:41 Method Of Arrival: Wheelchair aa5 17:41 Acuity: JM 2 aa5 Historical: - Allergies: 17:42 No Known Allergies; aa5 - Home Meds: 21:22 amlodipine 5 mg tab 1 tab once daily [Active]; ferrous sulfate 325 mg (65 mg iron) Oral ed1 tab daily [Active]; furosemide 20 mg Oral tab 1 tab once daily [Active]; levothyroxine 50 mcg tab 1 tab once daily [Active]; loratadine 10 mg Oral tab 1 tab once daily [Active]; metoprolol tartrate 50 mg Oral tab 1 tab once daily [Active]; pantoprazole 40 mg Oral TbEC 1 tab once daily [Active]; rifaximin 550 mg Oral 1 tab daily [Active]; sertraline 50 mg Oral tab 1 tab once daily [Active]; spironolactone 50 mg Oral tab 1 tab once daily [Active]; sucralfate 1 gram Oral tab 1 tab 2 times per day [Active]; Humalog 100 unit/mL Sub-Q soln 40 unit AM [Active]; Humalog 100 unit/mL Sub-Q soln 20 unit nightly [Active]; Baclofen Oral as needed [Active]; Tramadol Oral as needed [Active]; - PMHx: 17:42 Cirrhosis; Diabetes - NIDDM; Hernia; Hypertension; aa5 - PSHx: 17:42 stent in gall bladder; aa5 - Immunization history:: Flu vaccine is not up to date. - Social history:: Smoking status: Patient/guardian denies using tobacco. - Ebola Screening: : No symptoms or risks identified at this time. Screenin:04 Abuse screen: Denies threats or abuse. Denies injuries from another. Nutritional jl7 screening: No deficits noted. Tuberculosis screening: No symptoms or risk factors identified. Fall Risk None identified. Assessment: 18:04 General: Appears in no apparent distress. uncomfortable, Behavior is calm, cooperative, jl7 appropriate for age. Pain: Complains of pain in umbilical area Pain currently is 0 out of 10 on a pain scale. at worst was 10 out of 10 on a pain scale. Neuro: Level of Consciousness is awake, alert, obeys commands, Oriented to person, place, time, situation. Cardiovascular: Patient's skin is warm and dry. Respiratory: Airway is patent Respiratory effort is even, unlabored, Respiratory pattern is regular, symmetrical. GI: No signs and/or symptoms were reported involving the gastrointestinal system. : No signs and/or symptoms were reported regarding the genitourinary system. EENT: No signs and/or symptoms were reported regarding the EENT system. Derm: Skin is pink, warm \\T\\ dry. umbilical hernia noted to be red, swollen and leaking clear drainage at this time. 19:09 Reassessment: Patient appears in no apparent distress at this time. Patient and/or ed1 family updated on plan of care and expected duration. Pain level reassessed. Patient is alert, oriented x 3, equal unlabored respirations, skin warm/dry/pink. Patient denies pain at this time. 21:22 Reassessment: Obtained home medication list. Daughter states "She quit taking ed1 everything but her insulin and blood pressure medications because her doctors are all telling her different things.". 22:32 Reassessment: Patient appears in no apparent distress at this time. Patient and/or ed1 family updated on plan of care and expected duration. Pain level reassessed. Patient is alert, oriented x 3, equal unlabored respirations, skin warm/dry/pink. Patient denies pain at this time. Vital Signs: 17:43 BP 108 / 39; Pulse 69; Resp 18 S; Temp 98.0(TE); Pulse Ox 100% on R/A; Weight 68.95 kg aa5 (R); Height 5 ft. 2 in. (157.48 cm) (R); Pain 4/10; 19:09 BP 132 / 48; Pulse 69; Resp 18; Pulse Ox 100% on R/A; Pain 0/10; ed1 22:32 BP 136 / 69; Pulse 65; Resp 15; Temp 97.3(O); Pulse Ox 100% on R/A; Pain 0/10; ed1 17:43 Body Mass Index 27.80 (68.95 kg, 157.48 cm) aa5 ED Course: 17:25 Patient arrived in ED. mr 17:41 Arm band placed on. aa5 17:42 Triage completed. aa5 17:47 Lucia Jefferson FNP-C [facility]. snw 17:47 Mario Vazquez MD is Attending Physician. snw 17:51 Katheryn Hernandez, RN is Primary Nurse. jl7 18:04 Patient has correct armband on for positive identification. Bed in low position. Call jl7 light in reach. Side rails up X 1. 18:40 Missed attempt(s): 20 gauge in right antecubital area. Bleeding controlled, band aid jl7 applied, catheter tip intact. 18:40 Initial lab(s) drawn, by me, sent to lab. First set of blood cultures drawn by me. jl7 18:44 Chest Single View XRAY In Process Unspecified. EDMS 18:58 Second set of blood cultures drawn. Inserted saline lock: 22 gauge in left antecubital jl7 area, using aseptic technique. Blood collected. 19:09 Primary Nurse role handed off by Katheryn Hernandez, RN ed1 19:09 Anna Araiza, BAUDILIO is Primary Nurse. ed1 20:[address] vm2 20:37 CT Abd/Pelvis - W/Contrast In Process Unspecified. EDMS 20:54 CT Chest Wo Con In Process Unspecified. EDMS 22:32 No provider procedures requiring assistance completed. IV discontinued, intact, ed1 bleeding controlled, No redness/swelling at site. Pressure dressing applied. Dressings: ABD pad X 1; umbilical area Tube gauze X 1; abdomen. Administered Medications: 22:35 Drug: Doxycycline 100 mg Route: PO; ed1 22:35 Follow up: Response: Medication administered at discharge. ed1 Outcome: 22:12 Discharge ordered by . snw 22:32 Discharged to home ambulatory, with family. ed1 22:32 Condition: good 22:32 Discharge instructions given to patient, family, Instructed on discharge instructions, follow up and referral plans. medication usage, wound care, Demonstrated understanding of instructions, follow-up care, medications, wound care, Prescriptions given X 1. 22:35 Patient left the ED. ed1 Signatures: Dispatcher [employer] EDMS Lucia Jefferson, HATCH SUPERVISOR-C HATCH SUPERVISOR-Csnw PorfirioNicole mr RollinsiRsa RN RN aa5 Anna Araiza RN RN ed1 Katheryn Hernandez RN RN jl7 Sujata Gomez 2 Corrections: (The following items were deleted from the chart) 17:43 17:41 Acuity: JM 3 aa5 aa5
--- NOTE | 2019-02-12 22:14 | EDPHYS ---
Physician Documentation [facility] Name: Christie Solitario Age: 68 yrs Sex: Female : 1950 Arrival Date: 02/12/2019 Time: 17:25 Bed 20 Private MD: ED Physician Mario Vazquez HPI: 02/12 18:19 This 68 yrs old Female presents to ER via Wheelchair with complaints of Hernia.snw 18:19 The patient presents with abdominal pain in the lower abdomen. Onset: The snw symptoms/episode began/occurred 1 day(s) ago, and became persistent leaking serous fluid from the hernia site. The symptoms do not radiate. Associated signs and symptoms: Pertinent positives: lower extremity edema. The symptoms are described as steady. Severity of pain: At its worst the pain was mild. It is unknown whether or not the patient has had similar symptoms in the past. transplant doctors at [facility]. Historical: - Allergies: 17:42 No Known Allergies; aa5 - Home Meds: 21:22 amlodipine 5 mg tab 1 tab once daily [Active]; ferrous sulfate 325 mg (65 mg iron) Oral ed1 tab daily [Active]; furosemide 20 mg Oral tab 1 tab once daily [Active]; levothyroxine 50 mcg tab 1 tab once daily [Active]; loratadine 10 mg Oral tab 1 tab once daily [Active]; metoprolol tartrate 50 mg Oral tab 1 tab once daily [Active]; pantoprazole 40 mg Oral TbEC 1 tab once daily [Active]; rifaximin 550 mg Oral 1 tab daily [Active]; sertraline 50 mg Oral tab 1 tab once daily [Active]; spironolactone 50 mg Oral tab 1 tab once daily [Active]; sucralfate 1 gram Oral tab 1 tab 2 times per day [Active]; Humalog 100 unit/mL Sub-Q soln 40 unit AM [Active]; Humalog 100 unit/mL Sub-Q soln 20 unit nightly [Active]; Baclofen Oral as needed [Active]; Tramadol Oral as needed [Active]; - PMHx: 17:42 Cirrhosis; Diabetes - NIDDM; Hernia; Hypertension; aa5 - PSHx: 17:42 stent in gall bladder; aa5 - Immunization history:: Flu vaccine is not up to date. - Social history:: Smoking status: Patient/guardian denies using tobacco. - Ebola Screening: : No symptoms or risks identified at this time. ROS: 18:17 Eyes: Negative for injury, pain, redness, and discharge, ENT: Negative for injury, snw pain, and discharge, Neck: Negative for injury, pain, and swelling, Cardiovascular: Negative for chest pain, palpitations, and edema, Respiratory: Negative for shortness of breath, cough, wheezing, and pleuritic chest pain. 18:17 Back: Negative for injury and pain, : Negative for injury, bleeding, discharge, and swelling, MS/Extremity: Negative for injury and deformity, Skin: Negative for injury, rash, and discoloration, Neuro: Negative for headache, weakness, numbness, tingling, and seizure. 18:17 Constitutional: Positive for fever, subjective temp "all last week". 18:17 Abdomen/GI: Positive for hernia leaking to abdomen. Paracentesis 3 months ago. Pt is on transplant list 2nd to fatty liver cirrhosis. Moved up on the list at last visit per report. Exam: 18:15 Constitutional: This is a well developed, well nourished patient who is awake, alert, snw and in no acute distress. Head/Face: Normocephalic, atraumatic. Eyes: Pupils equal round and reactive to light, extra-ocular motions intact. Lids and lashes normal. Conjunctiva and sclera are non-icteric and not injected. Cornea within normal limits. Periorbital areas with no swelling, redness, or edema. ENT: Nares patent. No nasal discharge, no septal abnormalities noted. Tympanic membranes are normal and external auditory canals are clear. Oropharynx with no redness, swelling, or masses, exudates, or evidence of obstruction, uvula midline. Mucous membranes moist. Neck: Trachea midline, no thyromegaly or masses palpated, and no cervical lymphadenopathy. Supple, full range of motion without nuchal rigidity, or vertebral point tenderness. No Meningismus. Chest/axilla: Normal chest wall appearance and motion. Nontender with no deformity. No lesions are appreciated. Cardiovascular: Regular rate and rhythm with a normal S1 and S2. No gallops, murmurs, or rubs. Normal PMI, no JVD. No pulse deficits. Respiratory: Lungs have equal breath sounds bilaterally, clear to auscultation and percussion. No rales, rhonchi or wheezes noted. No increased work of breathing, no retractions or nasal flaring. 18:15 Back: No spinal tenderness. No costovertebral tenderness. Full range of motion. MS/ Extremity: Pulses equal, no cyanosis. Neurovascular intact. Full, normal range of motion. Neuro: Awake and alert, GCS 15, oriented to person, place, time, and situation. Cranial nerves II-XII grossly intact. Motor strength 5/5 in all extremities. Sensory grossly intact. Cerebellar exam normal. Normal gait. 18:15 Abdomen/GI: Inspection: distension, that is moderate, in the abdomen, Palpation: abdomen is soft and non-tender, soft, obvious hernia with noted ulcerations with serous weeping in large amounts. 18:15 Skin: Appearance: Color: vitiligo, Temperature: cool, Moisture: dry. Vital Signs: 17:43 BP 108 / 39; Pulse 69; Resp 18 S; Temp 98.0(TE); Pulse Ox 100% on R/A; Weight 68.95 kg aa5 (R); Height 5 ft. 2 in. (157.48 cm) (R); Pain 4/10; 19:09 BP 132 / 48; Pulse 69; Resp 18; Pulse Ox 100% on R/A; Pain 0/10; ed1 22:32 BP 136 / 69; Pulse 65; Resp 15; Temp 97.3(O); Pulse Ox 100% on R/A; Pain 0/10; ed1 17:43 Body Mass Index 27.80 (68.95 kg, 157.48 cm) aa5 MDM: 17:55 Patient medically screened. snw 22:07 Data reviewed: vital signs, nurses notes. Data interpreted: Pulse oximetry: on room air snw is 100 %. Interpretation: normal. Counseling: I had a detailed discussion with the patient and/or guardian regarding: the historical points, exam findings, and any diagnostic results supporting the discharge/admit diagnosis, lab results, radiology results, the need for outpatient follow up, to return to the emergency department if symptoms worsen or persist or if there are any questions or concerns that arise at home. Physician consultation: Mohsen Gould MD would like medications started, Doxycycline and follow up outpatient. Special discussion: pt ambulatory, afebrile, hernia contains only fat and is not perforated. Soft to touch. Pt with fluid overload. Stopped taking her medications except Insulin and Blood pressure medications. + overload but without symptoms, pt has stable vital signs and can follow up with her hepatology team this week. Will place on doxycycline and encourage f/u tomorrow. Dr. Gould also comfortable with discharge plan.. 02/12 18:10 Order name: T\\T\\S; Complete Time: 21:03 snw 02/12 18:10 Order name: C-Reactive Protein; Complete Time: 20:26 w 02/12 18:10 Order name: Basic Metabolic Panel; Complete Time: 20:26 snw 02/12 18:10 Order name: Blood Culture Adult (2) 02/12 18:10 Order name: CBC with Diff w 02/12 18:10 Order name: Ckmb; Complete Time: 20:26 snw 02/12 18:10 Order name: CPK; Complete Time: 20:26 w 02/12 18:10 Order name: Lactate; Complete Time: 19:28 w 02/12 18:10 Order name: LFT's; Complete Time: 20:26 w 02/12 18:10 Order name: Lipase; Complete Time: 20:26 snw 02/12 18:10 Order name: Procalcitonin; Complete Time: 20:01 w 02/12 18:10 Order name: Protime (+inr); Complete Time: 20:26 w 02/12 18:10 Order name: Ptt, Activated; Complete Time: 20:26 snw 02/12 18:10 Order name: Urine Microscopic Only; Complete Time: 22:16 w 02/12 18:10 Order name: Chest Single View XRAY; Complete Time: 20:50 w 02/12 18:10 Order name: Accucheck; Complete Time: 19:46 snw 02/12 18:10 Order name: Cardiac monitoring; Complete Time: 19:46 snw 02/12 18:10 Order name: EKG - Nurse/Tech; Complete Time: 19:46 snw 02/12 18:10 Order name: IV Saline Lock - Large Bore; Complete Time: 19:46 w 02/12 18:10 Order name: Labs collected and sent; Complete Time: 19:46 w 02/12 18:10 Order name: O2 Per Protocol; Complete Time: 19:46 snw 02/12 18:10 Order name: O2 Sat Monitoring; Complete Time: 19:04 snw 02/12 18:10 Order name: CT Abd/Pelvis - W/Contrast; Complete Time: 21:02 snw 02/12 18:10 Order name: TSH; Complete Time: 20:26 snw 02/12 20:11 Order name: T4 Free; Complete Time: 20:26 EDMS 02/12 20:50 Order name: CT Chest Wo Con; Complete Time: 21:03 snw 02/12 21:03 Order name: CBC Smear Scan EDMS 02/12 21:43 Order name: Urine Dipstick--Ancillary (enter results); Complete Time: 22:01 ar5 02/12 18:10 Order name: Urine Dipstick-Ancillary (obtain specimen); Complete Time: 19:04 snw 02/12 21:05 Order name: Misc. Order: please chart home medication list; Complete Time: 21:23 snw 02/12 22:03 Order name: Wound Care; Complete Time: 22:35 snw 02/12 22:03 Order name: Dressing - Wound: bulky dressing with mild banding support (spandage); snw Complete Time: 22:35 Administered Medications: 22:35 Drug: Doxycycline 100 mg Route: PO; ed1 22:35 Follow up: Response: Medication administered at discharge. ed1 Disposition: 02/13 07:04 Co-signature as Attending Physician, Mario Vazquez MD. rn Disposition: 02/12/19 22:12 Discharged to Home. Impression: Fluid overload, Unspecified cirrhosis of liver, Umbilical hernia without obstruction or gangrene. - Condition is Stable. - Discharge Instructions: Hernia, Adult, Pleural Effusion, Wound Check, Wound Care. - Prescriptions for Doxycycline Hyclate 100 mg Oral Tablet - take 1 tablet by ORAL route every 12 hours; 20 tablet. - Medication Reconciliation Form, Thank You Letter, Antibiotic Education, Prescription Opioid Use form. - Follow up: Private Physician; When: 1 - 2 days; Reason: Recheck today's complaints, Continuance of care, Re-evaluation by your physician. Follow up: Emergency Department; When: As needed; Reason: Worsening of condition. - Notes: Please follow up with Hepatology team tomorrow. Signatures: Dispatcher [employer] EDME Lucia Jefferson, RHEUMATOLOGY SPECIALIST-C RHEUMATOLOGY SPECIALIST-Csnw Mario Vazquez MD MD rn Calderon, Audri RN RN aa5 Anna Araiza RN RN ed1 Corrections: (The following items were deleted from the chart) 02/12 18:13 18:12 BILIRUBIN, DIRECT+[id number].LAB.BRZ ordered. [facility] 22:35 22:12 02/12/2019 22:12 Discharged to Home. Impression: Fluid overload; Unspecified ed1 cirrhosis of liver; Umbilical hernia without obstruction or gangrene. Condition is Stable. Forms are Medication Reconciliation Form, Thank You Letter, Antibiotic Education, Prescription Opioid Use. Follow up: Private Physician; When: 1 - 2 days; Reason: Recheck today's complaints, Continuance of care, Re-evaluation by your physician. Follow up: Emergency Department; When: As needed; Reason: Worsening of condition. snw
[2019-02-12] MEDS ORDERED: DOXYCYCLINE 100 MG CAP PO ONE (22:38)
[2019-02-12 23:14] VITALS: O2SAT 100
[2019-02-12 23:17] VITALS: BP 136/69; TEMP 97.3
== END 2019-02-12 22:35 | disposition home or self-care (01) ==
LOC: ER 17:22
DX: E87.70 Fluid overload, unspecified (principal); K42.9 Umbilical hernia without obstruction or gangrene; K74.60 Unspecified cirrhosis of liver; I10 Essential (primary) hypertension; E11.9 Type 2 diabetes mellitus without complications; Z79.4 Long term (current) use of insulin
CPT/HCPCS: 87040 ×2; 85025; 80048; 36415; 86900; 86850; 82550; 85610; 86901; 80076; 83605; 85730; 84443; 82553; 84439; 83690; 84145; 86140; 71250; 74177; 71045; Q9967; 81003; 81015

== ENCOUNTER 2019-08-12 17:38 | Emergency (ER) | payer OTHER ==
[2019-08-12 18:54] LABS: Absolute Lymphocytes (CBC) 0.5 K/uL (0.7-4.9); Basophils % 0.9 % (0-1.3); Hematocrit 28.4 % (36.0-45.0); RBC Red Blood Cell Count 3.58 M/uL (3.86-4.86)
[2019-08-12] MEDS ORDERED: ONDANSETRON 4 MG/2 ML VIAL ONE (19:04)
[2019-08-12] MEDS ORDERED: MORPHINE 4 MG/ML SYR ONE (19:05)
[2019-08-12 19:19] LABS: Urine White Blood Cell Casts OK
[2019-08-12 19:20] LABS: Blood Morphology Comment NOT SEEN (NOT SEEN); Platelet Estimate DECR
--- NOTE | 2019-08-12 19:21 | RAD REPORT ---
EXAM DESCRIPTION: CT - Thorax Wo Con - 08/12/2019 7:11 pm CLINICAL HISTORY: Chest pain COMPARISON: February 2019 TECHNIQUE: Computed axial tomography of the chest was obtained. Contrast was not requested. All CT scans are performed using dose optimization technique as appropriate and may include automated exposure control or mA/KV adjustment according to patient size. FINDINGS: The evaluation of mediastinum, marissa and vessels is limited secondary to lack of IV contras t administration. No mediastinal or hilar lymphadenopathy is seen. Small to moderate right pleural effusion with right basilar atelectasis Left lung is clear IMPRESSION: Small to moderate right pleural effusion
[2019-08-12 19:23] LABS: Albumin 3.7 g/dL (3.4-5.0); Bilirubin Direct 0.4 mg/dL (0-0.2); Potassium 3.9 mmol/L (3.5-5.1); Protein, Total 8.8 g/dL (6.4-8.2)
--- NOTE | 2019-08-12 19:28 | RAD REPORT ---
EXAM DESCRIPTION: CT - Stone Protocol - 08/12/2019 7:06 pm CLINICAL HISTORY: Abdominal pain. COMPARISON: February 2019 TECHNIQUE: Computed axial tomography of the abdomen pelvis was obtained without oral or IV contrast. Lack of IV and oral contrast limits evaluation of solid organs, bowel, and vessels. Coronal reformat kianna images were obtained and reviewed. All CT scans are performed using dose optimization technique as appropriate and may include automated exposure control or mA/KV adjustment according to patient size. FINDINGS: A renal calculus is not seen. An ureteral calculus is not noted. A bladder calculus is not present. A cirrhotic liver. Hepatic cyst The spleen measures 14 centimeters Pancreas and adrenals appear grossly normal There is no evidence of diverticulitis. A large right inguinal hernia contains nondilated small bowel and ascites. Moderate left inguinal her britt contains ascites Cholecystectomy. Overall relatively small amount ascites within the abdomen and pelvis Postsurgical changes involve the stomach IMPRESSION: Negative for a genitourinary calculus Cirrhosis Large right inguinal hernia Moderate left inguinal hernia
[2019-08-12 21:04] LABS: Urine Blood TRACE (NEG); Urine Glucose NEGATIVE (NEG)
[2019-08-12 21:05] LABS: Urine Protein NEGATIVE (NEG)
--- NOTE | 2019-08-12 21:15 | ER ---
Nurse's Notes [facility] Name: Christie Solitario Age: 69 yrs Sex: Female : 1950 Arrival Date: 08/12/2019 Time: 17:40 Bed 30 Private MD: Goyo Rowley Diagnosis: Low back pain;Other cirrhosis of liver;Bilateral inguinal hernia, without obstruction or gangrene;Pleural effusion, not elsewhere classified-Small to moderate right side Presentation: 08/12 17:47 Presenting complaint: Patient states: "I have a pain in my back and it goes to the aj1 front of my stomach. I have cirrhosis and high blood pressure. " Reports right low back pain that radiates to the RLQ since Sunday. Denies urinary symptoms. Denies fever. Denies N/V/D. Transition of care: patient was not received from another setting of care. Onset of symptoms was 2018. Risk Assessment: Do you want to hurt yourself or someone else? Patient reports no desire to harm self or others. Initial Sepsis Screen: Does the patient meet any 2 criteria? No. Patient's initial sepsis screen is negative. Does the patient have a suspected source of infection? Yes: Acute abdominal pain. Care prior to arrival: None. 17:47 Method Of Arrival: Ambulatory [facility] 17:47 Acuity: JM 3 aj1 Triage Assessment: 17:51 General: Appears uncomfortable, Behavior is calm, cooperative, appropriate for age. aj1 Pain: Pain currently is 10 out of 10 on a pain scale. Neuro: Level of Consciousness is awake, alert, obeys commands. Cardiovascular: Patient's skin is warm and dry. Respiratory: Airway is patent Respiratory effort is even, unlabored, Respiratory pattern is regular, symmetrical. Musculoskeletal: Range of motion: intact in all extremities. Historical: - Allergies: 17:51 No Known Allergies; aj1 - Home Meds: 17:51 amlodipine 5 mg tab 1 tab once daily [Active]; Baclofen Oral as needed [Active]; aj1 ferrous sulfate 325 mg (65 mg iron) Oral tab daily [Active]; furosemide 20 mg Oral tab 1 tab once daily [Active]; Humalog 100 unit/mL Sub-Q soln 40 unit AM [Active]; Humalog 100 unit/mL Sub-Q soln 20 unit nightly [Active]; levothyroxine 50 mcg tab 1 tab once daily [Active]; loratadine 10 mg Oral tab 1 tab once daily [Active]; metoprolol tartrate 50 mg Oral tab 1 tab once daily [Active]; pantoprazole 40 mg Oral TbEC 1 tab once daily [Active]; rifaximin 550 mg Oral 1 tab daily [Active]; sertraline 50 mg Oral tab 1 tab once daily [Active]; spironolactone 50 mg Oral tab 1 tab once daily [Active]; sucralfate 1 gram Oral tab 1 tab 2 times per day [Active]; Tramadol Oral as needed [Active]; - PMHx: 17:51 Cirrhosis; Diabetes - NIDDM; Hernia; Hypertension; aj1 - Immunization history:: Flu vaccine is not up to date. - Social history:: Smoking status: Patient/guardian denies using tobacco. - Ebola Screening: : Patient denies travel to an Ebola-affected area in the 21 days before illness onset. Screenin:30 Abuse screen: Denies threats or abuse. Nutritional screening: No deficits noted. tr5 Tuberculosis screening: No symptoms or risk factors identified. Fall Risk None identified. Assessment: 18:30 General: Appears uncomfortable, Behavior is calm, cooperative, appropriate for age. tr5 Pain: Complains of pain in right low back Pain radiates to right lower quadrant Pain currently is 6 out of 10 on a pain scale. Quality of pain is described as aching, crampy, Pain began 2-3 days ago. Neuro: Level of Consciousness is awake, alert, obeys commands, Oriented to person, place, time, Painter And Body Mechanic Apprentice are equal bilaterally Moves all extremities. Cardiovascular: Heart tones present Capillary refill < 3 seconds Pulses are all present. Edema is absent. Respiratory: Airway is patent Respiratory effort is even, unlabored, Respiratory pattern is regular, symmetrical. GI: Reports nausea. : No signs and/or symptoms were reported regarding the genitourinary system. EENT: No signs and/or symptoms were reported regarding the EENT system. Derm: No signs and/or symptoms reported regarding the dermatologic system. Musculoskeletal: Capillary refill < 3 seconds, Range of motion: intact in all extremities. 19:30 Reassessment: Patient appears in no apparent distress at this time. Patient and/or tr5 family updated on plan of care and expected duration. Pain level reassessed. Patient is alert, oriented x 3, equal unlabored respirations, skin warm/dry/pink. Vital Signs: 17:51 BP 125 / 81; Pulse 59; Resp 18; Temp 98.1; Pulse Ox 100% on R/A; Weight 58.51 kg (R); aj1 Height 5 ft. 2 in. (157.48 cm) (R); Pain 10/10; 19:30 BP 150 / 60; Pulse 56; Resp 16; Pulse Ox 100% on R/A; tr5 20:37 BP 160 / 41; Pulse 61; Resp 18; Pulse Ox 99% on R/A; tr5 17:51 Body Mass Index 23.59 (58.51 kg, 157.48 cm) aj1 ED Course: 17:40 Patient arrived in ED. rg4 17:40 Goyo Rowley MD is Private Physician. rg4 17:50 Triage completed. aj1 17:51 Arm band placed on Patient placed in an exam room. aj1 17:56 Gianni Edge NP is PHCP. pm1 17:57 Pedro Shukla MD is Attending Physician. pm1 18:20 Corbin Alaniz, BAUDILIO is Primary Nurse. tr5 18:30 Placed in gown. Bed in low position. Call light in reach. tr5 18:31 Inserted saline lock: 20 gauge in left antecubital area, using aseptic technique. tr5 18:33 Initial lab(s) drawn, by ED staff, sent to lab. tr5 19:07 CT Stone Protocol In Process Unspecified. EDMS 19:12 Thorax Wo Con In Process Unspecified. EDMS 20:30 Assisted to bathroom. tr5 20:30 Urine collected: clean catch specimen, clear. tr5 21:48 No provider procedures requiring assistance completed. IV discontinued. tr5 Administered Medications: 19:19 Drug: morphine 4 mg Route: IVP; Site: right antecubital; tr5 20:30 Follow up: Response: Pain is decreased tr5 19:19 Drug: Zofran 4 mg Route: IVP; Site: right antecubital; tr5 20:30 Follow up: Response: Marked relief of symptoms tr5 22:03 CANCELLED (Physician Discretion): morphine 4 mg IVP once; RASS on ADMIN: Combtv4, Very tr5 Agttd3, Agttd2, Rstlss1, AlertClm0, Drwsy-1, Lt Sdtn-2, Mod Sdtn-3, Dp Sdtn-4, UnArsble-5 22:05 Drug: morphine 2 mg Route: IVP; Site: left antecubital; tr5 22:30 Follow up: Response: Pain is decreased tr5 Outcome: 21:15 Discharge ordered by MD. pm1 21:48 Discharged to home ambulatory. tr5 21:48 Condition: stable 21:48 Discharge instructions given to patient, Instructed on discharge instructions, follow up and referral plans. Demonstrated understanding of instructions, follow-up care. 22:12 Patient left the ED. tr5 Signatures: Dispatcher [employer] EDJuliet Mccarty, RN RN aj1 Gianni Edge NP HEARING AID REPAIR TECHNICIAN pm1 Trudy Carmona rg4 Corbin Alaniz RN RN tr5
--- NOTE | 2019-08-12 21:16 | EDPHYS ---
Physician Documentation [facility] Name: Christie Solitario Age: 69 yrs Sex: Female : 1950 Arrival Date: 08/12/2019 Time: 17:40 Bed 30 Private MD: Goyo Rowley ED Physician Pedro Shukla HPI: 08/12 18:10 This 69 yrs old Female presents to ER via Ambulatory with complaints of Back pm1 Pain. 18:10 The patient presents with pain that is acute, with no known mechanism of injury. The pm1 symptoms are located in the right low back. Onset: The symptoms/episode began/occurred 4 day(s) ago. The pain radiates to the right lower quadrant. Associated signs and symptoms: The patient has no apparent associated signs or symptoms, Pertinent negatives: chest pain, constipation, dysuria, fever, nausea, numbness, vomiting. The problem was sustained from unknown cause. Modifying factors: The patient symptoms are alleviated by nothing, the patient symptoms are aggravated by nothing. Severity of symptoms: in the emergency department the symptoms are actually worse. Historical: - Allergies: 17:51 No Known Allergies; aj1 - Home Meds: 17:51 amlodipine 5 mg tab 1 tab once daily [Active]; Baclofen Oral as needed [Active]; aj1 ferrous sulfate 325 mg (65 mg iron) Oral tab daily [Active]; furosemide 20 mg Oral tab 1 tab once daily [Active]; Humalog 100 unit/mL Sub-Q soln 40 unit AM [Active]; Humalog 100 unit/mL Sub-Q soln 20 unit nightly [Active]; levothyroxine 50 mcg tab 1 tab once daily [Active]; loratadine 10 mg Oral tab 1 tab once daily [Active]; metoprolol tartrate 50 mg Oral tab 1 tab once daily [Active]; pantoprazole 40 mg Oral TbEC 1 tab once daily [Active]; rifaximin 550 mg Oral 1 tab daily [Active]; sertraline 50 mg Oral tab 1 tab once daily [Active]; spironolactone 50 mg Oral tab 1 tab once daily [Active]; sucralfate 1 gram Oral tab 1 tab 2 times per day [Active]; Tramadol Oral as needed [Active]; - PMHx: 17:51 Cirrhosis; Diabetes - NIDDM; Hernia; Hypertension; aj1 - Immunization history:: Flu vaccine is not up to date. - Social history:: Smoking status: Patient/guardian denies using tobacco. - Ebola Screening: : Patient denies travel to an Ebola-affected area in the 21 days before illness onset. ROS: 18:10 Constitutional: Negative for fever, chills, and weight loss, Eyes: Negative for injury, pm1 pain, redness, and discharge, ENT: Negative for injury, pain, and discharge, Neck: Negative for injury, pain, and swelling, Cardiovascular: Negative for chest pain, palpitations, and edema, Respiratory: Negative for shortness of breath, cough, wheezing, and pleuritic chest pain, Abdomen/GI: Negative for abdominal pain, nausea, vomiting, diarrhea, and constipation. 18:10 : Negative for injury, bleeding, discharge, and swelling, MS/Extremity: Negative for injury and deformity, Skin: Negative for injury, rash, and discoloration, Neuro: Negative for headache, weakness, numbness, tingling, and seizure. 18:10 Back: Positive for flank pain, on the right. Exam: 18:10 Constitutional: This is a well developed, well nourished patient who is awake, alert, pm1 and in no acute distress. Head/Face: Normocephalic, atraumatic. Eyes: Pupils equal round and reactive to light, extra-ocular motions intact. Lids and lashes normal. Conjunctiva and sclera are non-icteric and not injected. Cornea within normal limits. Periorbital areas with no swelling, redness, or edema. ENT: Nares patent. No nasal discharge, no septal abnormalities noted. Tympanic membranes are normal and external auditory canals are clear. Oropharynx with no redness, swelling, or masses, exudates, or evidence of obstruction, uvula midline. Mucous membranes moist. Neck: Trachea midline, no thyromegaly or masses palpated, and no cervical lymphadenopathy. Supple, full range of motion without nuchal rigidity, or vertebral point tenderness. No Meningismus. Chest/axilla: Normal chest wall appearance and motion. Nontender with no deformity. No lesions are appreciated. Cardiovascular: Regular rate and rhythm with a normal S1 and S2. No gallops, murmurs, or rubs. Normal PMI, no JVD. No pulse deficits. Respiratory: Lungs have equal breath sounds bilaterally, clear to auscultation and percussion. No rales, rhonchi or wheezes noted. No increased work of breathing, no retractions or nasal flaring. Abdomen/GI: Soft, non-tender, with normal bowel sounds. No distension or tympany. No guarding or rebound. No evidence of tenderness throughout. 18:10 Skin: Warm, dry with normal turgor. Normal color with no rashes, no lesions, and no evidence of cellulitis. MS/ Extremity: Pulses equal, no cyanosis. Neurovascular intact. Full, normal range of motion. 18:10 Back: pain, that is mild, vertebral tenderness, is not appreciated, muscle spasm, is appreciated in the right low back. 18:10 Neuro: Orientation: is normal, Motor: is normal, moves all fours, Gait: is steady, at a normal pace, without difficulty. Vital Signs: 17:51 BP 125 / 81; Pulse 59; Resp 18; Temp 98.1; Pulse Ox 100% on R/A; Weight 58.51 kg (R); aj1 Height 5 ft. 2 in. (157.48 cm) (R); Pain 10/10; 19:30 BP 150 / 60; Pulse 56; Resp 16; Pulse Ox 100% on R/A; tr5 20:37 BP 160 / 41; Pulse 61; Resp 18; Pulse Ox 99% on R/A; tr5 17:51 Body Mass Index 23.59 (58.51 kg, 157.48 cm) aj1 MDM: 18:07 Patient medically screened. pm1 21:15 Data reviewed: vital signs. Data interpreted: Pulse oximetry: on room air is 99 %. pm1 Interpretation: normal. Counseling: I had a detailed discussion with the patient and/or guardian regarding: the historical points, exam findings, and any diagnostic results supporting the discharge/admit diagnosis, lab results, radiology results, the need for outpatient follow up, to return to the emergency department if symptoms worsen or persist or if there are any questions or concerns that arise at home. 08/12 18:09 Order name: Basic Metabolic Panel; Complete Time: 19:31 pm1 08/12 18:09 Order name: CBC with Diff; Complete Time: 19:31 pm1 08/12 18:09 Order name: Creatinine for Radiology; Complete Time: 19:17 pm1 08/12 18:09 Order name: Hepatic Function; Complete Time: 19:31 pm1 08/12 18:09 Order name: Lipase; Complete Time: 19:31 pm1 08/12 19:20 Order name: CBC Smear Scan; Complete Time: 19:31 EDMS 08/12 18:09 Order name: Urine Dipstick-Ancillary (obtain specimen); Complete Time: 20:29 pm1 08/12 18:56 Order name: CT Stone Protocol; Complete Time: 20:54 pm1 08/12 19:10 Order name: Thorax Wo Con; Complete Time: 19:31 EDMS 08/12 20:41 Order name: Urine Dipstick--Ancillary (enter results); Complete Time: 21:14 em1 08/12 18:09 Order name: IV Saline Lock; Complete Time: 18:29 pm1 08/12 18:09 Order name: Labs collected and sent; Complete Time: 18:30 pm1 Administered Medications: 19:19 Drug: morphine 4 mg Route: IVP; Site: right antecubital; tr5 20:30 Follow up: Response: Pain is decreased tr5 19:19 Drug: Zofran 4 mg Route: IVP; Site: right antecubital; tr5 20:30 Follow up: Response: Marked relief of symptoms tr5 22:03 CANCELLED (Physician Discretion): morphine 4 mg IVP once; RASS on ADMIN: Combtv4, Very tr5 Agttd3, Agttd2, Rstlss1, AlertClm0, Drwsy-1, Lt Sdtn-2, Mod Sdtn-3, Dp Sdtn-4, UnArsble-5 22:05 Drug: morphine 2 mg Route: IVP; Site: left antecubital; tr5 22:30 Follow up: Response: Pain is decreased tr5 Disposition: 08/12/19 21:15 Discharged to Home. Impression: Low back pain, Other cirrhosis of liver, Bilateral inguinal hernia, without obstruction or gangrene, Pleural effusion, not elsewhere classified - Small to moderate right side. - Condition is Stable. - Discharge Instructions: Back Pain, Adult, Inguinal Hernia, Adult. - Prescriptions for Tramadol 50 mg Oral Tablet - take 1 tablet by ORAL route every 8 hours as needed; 12 tablet. - Work release form, Medication Reconciliation Form, Thank You Letter, Antibiotic Education, Prescription Opioid Use form. - Follow up: Emergency Department; When: As needed; Reason: Worsening of condition. Follow up: Private Physician; When: 2 - 3 days; Reason: Recheck today's complaints, Continuance of care, Re-evaluation by your physician. - Problem is new. - Symptoms have improved. Signatures: Dispatcher [employer] EDJuliet Mccarty RN RN aj1 Gianni Edge NP PHYSICIAN CODING SPECIALIST pm1 Corbin Alaniz RN RN tr5 Corrections: (The following items were deleted from the chart) 21:18 21:15 08/12/2019 21:15 Discharged to Home. Impression: Low back pain. Condition is pm1 Stable. Forms are Medication Reconciliation Form, Thank You Letter, Antibiotic Education, Prescription Opioid Use. Follow up: Emergency Department; When: As needed; Reason: Worsening of condition. Follow up: Private Physician; When: 2 - 3 days; Reason: Recheck today's complaints, Continuance of care, Re-evaluation by your physician. Problem is new. Symptoms have improved. pm1 22:03 21:59 morphine 4 mg IVP once; RASS on ADMIN: Combtv4, Very Agttd3, Agttd2, Rstlss1, tr5 AlertClm0, Drwsy-1, Lt Sdtn-2, Mod Sdtn-3, Dp Sdtn-4, UnArsble-5 ordered. pm1 22:12 21:18 08/12/2019 21:15 Discharged to Home. Impression: Low back pain; Other cirrhosis tr5 of liver; Bilateral inguinal hernia, without obstruction or gangrene; Pleural effusion, not elsewhere classified - Small to moderate right side. Condition is Stable. Discharge Instructions: Back Pain, Adult. Forms are Medication Reconciliation Form, Thank You Letter, Antibiotic Education, Prescription Opioid Use. Follow up: Emergency Department; When: As needed; Reason: Worsening of condition. Follow up: Private Physician; When: 2 - 3 days; Reason: Recheck today's complaints, Continuance of care, Re-evaluation by your physician. Problem is new. Symptoms have improved. pm1
[2019-08-12] MEDS ORDERED: MORPHINE 2 MG/ML SYR ONE (22:01)
[2019-08-12 23:10] VITALS: TEMP 98.1
[2019-08-12 23:12] VITALS: BP 160/41; O2SAT 99
== END 2019-08-12 22:12 | disposition home or self-care (01) ==
LOC: ER 17:38
DX: K74.69 Other cirrhosis of liver (principal); K40.20 Bilateral inguinal hernia, without obstruction or gangrene, not specified as recurrent; J90 Pleural effusion, not elsewhere classified; I10 Essential (primary) hypertension; E11.9 Type 2 diabetes mellitus without complications; Z79.4 Long term (current) use of insulin
CPT/HCPCS: 85025; 80048; 36415; 80076; 81003; 83690; 71250; 76377; 74176; J2270; J2405; 96374; 96375; 99284

== ENCOUNTER 2021-01-02 00:01 | Emergency (ER) | payer OTHER ==
--- OUTSIDE RECORDS SUMMARY | 2021-01-02 00:07 | XMS REPORT | Clinical Summary ---
:1950 Author Organization [facility] Address [address] [place] [address] Care Team Providers Name Role Phone Marybeth Rowley Primary Care Provider Pcp, Primary Care Provider Unavailable Allergies No Known Allergies Medications Medication Sig Dispensed Refills Start Date End Date Status traMADol (ULTRAM) 50 mg Take 50 mg by 0 Active tablet mouth every 8 (eight) hours as needed for Pain . metoprolol (TOPROL-XL) Take 50 mg by 0 Active 50 MG 24 hr tablet mouth daily. rifAXIMin 550 mg Tab Take 1 tablet 60 tablet 5 05/14/2019 Active (550 mg total) by mouth 2 (two) times daily. pantoprazole (PROTONIX) Take 40 tablets 0 08/15/2019 Active 40 MG tablet by mouth daily. levothyroxine Take 75 mcg by 0 07/11/2019 Active (SYNTHROID, LEVOTHROID) mouth daily . 75 MCG tablet insulin NPH hum/reg 40 Units daily . 0 Active insulin hm (HUMULIN 70/30 U-100 INSULIN SUBQ) lidocaine-menthol 4-1 % Apply 1 patch 15 patch 0 11/29/2019 Active PtMd topically daily. traZODone (DESYREL) 50 Take 50 mg by 0 Active MG tablet mouth every night as needed for Sleep. ondansetron (ZOFRAN) 4 Take 4 mg by 0 Active MG tablet mouth 3 (three) times daily as needed for Nausea. spironolactone Take 1 tablet (25 30 tablet 5 03/16/2020 Active (ALDACTONE) 25 MG mg total) by tabletIndications: mouth daily. Other ascites, Decompensated hepatic cirrhosis (HCC) furosemide (LASIX) 20 Take 0.5 tablets 15 tablet 5 03/30/2020 Active MG tabletIndications: (10 mg total) by Decompensated hepatic mouth daily. cirrhosis (HCC), Pleural effusion, Other ascites Additional Information Patient taking differently: 20 mg Oral Daily, Reason: Other (per patient), Reported on 08/24/2020 8:30 AM insulin syringe-needle daily. 0 07/23/2020 Active U-100 1 mL 31 gauge x 5/16 Syrg OneTouch Ultra Blue Test 0 07/21/2020 Active Strip Strp ferrous sulfate 325 (65 Take 1 tablet 30 tablet 11 11/28/2019 0 11/27/2020 FE) MG tablet (325 mg total) by mouth daily with breakfast. Additional Information Patient taking differently: 325 mg Oral Daily with breakfast, Patient states she does not take everyday, Reason: Other, Reported on 08/24/2020 8:30 AM spironolactone (ALDACTONE) Take 50 mg by mouth 5 03/16/2020 Discontinued 50 MG tablet daily. Active Problems Problem Noted Date Abdominal pain, unspecified abdominal location 020 Anasarca 11/26/2019 Acute abdominal pain 04/29/2019 Last Assessment & Plan: Her abdominal pain is likely due to comb ination of hernia and constipation. We advised her to use a trus for support of herniated area on her abdomen and increase her fluid consumption and use OTC stool softeners as needed. H/O umbilical hernia repair 04/10/2019 Last Assessment & Plan: The umbilical hernia repaired area on he r abdomen is healing well with wound edges well approximated. Inguinal hernia 03/03/2019 Last Assessment & Plan: Surgery is not recommended at this time to due to risks associated to cirrhosis. We encouraged her to use trus for support. Pre-transplant evaluation for chronic liver disease Last Assessment & Plan: Seen by cardiology and cleared, needs f/ u for lung lesion Elevated random blood glucose level 09/05/2018 Portal vein thrombosis 09/05/2018 History of pleural effusion 09/05/2018 Iron deficiency anemia 09/19/2017 Pulmonary nodule 08/30/2017 Last Assessment & Plan: 3mm pulmonary nodule. Requires follow up with civil clerk prior to surgery. Gastrointestinal hemorrhage with melena 08/29/2017 Altered mental status 12/22/2016 Seizure 12/22/2016 Other cirrhosis of liver 10/19/2014 Last Assessment & Plan: Diagnosis based on the constellation of clinical findings, laboratory parameters and imaging. Etiology is most likely due to VASQUEZ. Rhoda has decompensated with features of portal hypertension. MELD Na is 9 based on labs from 08/19/19. Portal hypertension 10/19/2014 Last Assessment & Plan: [...] and/ or variceal band ligation should be base d on the size of the varices and [...] 27.14 kg/(m^2).), hypertensio n, insulin resistance, and hyperlipidemi a (on meds / triglyceride >150 / HDL [...] done in ad dition to other age-appropriate vaccines . We will test for immunity to both [...] Encounters Date Type Specialty Care Team Description 12/29/2020 Telephone Transplant Swati Bolivar Hepatology R, RN 12/16/2020 Hospital Encounter Radiology Yue Huerta Awaitin g organ transplant status; MD Elsa Decompensated h epatic cirrhosis (HCC); Other cirrhosis of liver (HCC); Portal vein thr ombosis; Encounter for s creening for other viral diseases; Weakness; Decreased mobil ity 12/16/2020 Orders Only Transplant Yue Huerta Awaiting orga n transplant status; Hepatology MD Elsa Decompensated h epatic cirrhosis (HCC); Other cirrhosis of liver (HCC); Screening for c ancer 12/16/2020 Hospital Encounter Radiology Yue Huerta Cirrhos is of liver MD Elsa with ascites, unspecified hep atic cirrhosis type (HCC) 12/16/2020 Documentation Transplant Swati Bolivar Hepatology R, RN 12/06/2020 Orders Only Transplant Swati Bolivar Cirrhosis of liver Hepatology R, RN with ascites, unspecified hep atic cirrhosis type (HCC) (Primary Dx) 12/02/2020 Telephone Transplant [facility] R, RN question 12/02/2020 Telephone Transplant Chavo, Appointment (CIRO Osuna Hepatology Nicole Chew Callng to eitan eduled mri & labs.) 12/01/2020 Telephone Transplant Chavo, Appointment (ciro Chew Calling to resc hedule mri & lab appts .) 12/01/2020 Telephone Transplant Brandin Social Work Hepatology VICKI Posey 11/30/2020 Orders Only Transplant Yue Huerta Awaiting orga n transplant status; Hepatology MD Elsa Cancer screenin g; Cirrhosis of li elenita with ascites, unspecified hepatic cirrhosis type (HCC); Immunity status testing; Encounter for s creening for other viral diseases 11/30/2020 Evaluation Transplant Yue Huerta Hepatology MD Adan Hunter Amy 11/30/2020 Follow-Up Transplant Yue Huerta Other cirrhos is of liver (HCC) (Primary Dx); Hepatology MD Elsa Encounter for screening for other viral diseases; Aubrey, Portal vein thr ombosis; Russ Haile MD Weakness; Decreased mobil ity; Awaiting organ transplant status; Decompensated h epatic cirrhosis (HCC); Screening for c ancer 11/30/2020 Social Work Transplant Brandin Hepatology VICKI Posey 11/30/2020 Orders Only Transplant China Arellano, Awaiting orga n transplant status (Primary Dx); Hepatology RN Cancer screenin g; Cirrhosis of li elenita with ascites, unspecified hepatic cirrhosis type (HCC); Immunity status testing; Encounter for s creening for other viral diseases 11/30/2020 Documentation Transplant Chavo, Hepatjacky Chew 11/29/2020 Telephone Transplant Chavo, Appointment (er ror) Hepatology Nicole Chew 11/26/2020 Telephone Transplant Wen Cornejo Appointment Hepatology 11/11/2020 Hospital Encounter Radiology Cholankeril, Pleural e ffusion Alvaro Ramirez MD 11/10/2020 Orders Only Transplant Solomon, Pleural effusio n Hepatology Maura, RN (Primary Dx) 10/26/2020 Hospital Encounter Radiology Yue Huerta Cirrhos is of liver MD Elsa with ascites, unspecified hep atic cirrhosis type (HCC) 10/25/2020 Telephone Transplant Chvao, Alla Hepatology Nicole Chew (Scheduled 10/12 5 thoracentesis a ppt w/spouse. ) 10/25/2020 Orders Only Transplant Swati Bolivar Cirrhosis of liver with ascites, unspecified hepatic cirrhosis type (HCC) (Primary Dx); Hepatology R, RN Other cirrhosis of liver (HCC) 09/22/2020 Telephone Transplant Chavo, Appointment Hepatology Nicole Chew (Scheduled 11/12 9 clinic appt w/s pouse. Itinerary mail ed to pt.) 09/22/2020 Telephone Transplant Chavo, Appointment (CIRO Osuna Hepatology Nicole Chew Calling to [facility] f/u appt due in November.) 09/22/2020 Documentation Transplant Swati Bolivar Hepatology Kris RN 09/21/2020 Documentation Transplant Wen Cornejo Hepatology 09/21/2020 Orders Only Transplant Wen Cornejo Awaiting orga n transplant status; Hepatology Other cirrhosis of liver (HCC); Screening for c ancer 09/20/2020 Telephone Transplant Swati Bolivar Follow-up Hepatology Kris RN 09/02/2020 Abstract Transplant Alex, Hepatology DaryaJD 08/31/2020 Hospital Encounter Radiology Yue Huerta Cirrhos is of liver with ascites, unspecified hepatic cirrhosis type (HCC); MD Elsa Other ascites 08/31/2020 Hospital Encounter Radiology Yue Huerta Cirrhos is of liver with ascites, unspecified hepatic cirrhosis type (HCC); MD Elsa Hydrothorax 08/31/2020 Travel 08/30/2020 Documentation Transplant Chavo Hepatology Nicole Chew 08/30/2020 Abstract Transplant Swati Bolivar Hepatology BAUDILIO Ponce 08/27/2020 Documentation Transplant Chavo, Hepatology Nicole Chew 08/26/2020 Documentation Transplant Chavo, Hepatology Nicole Chew 08/25/2020 Documentation Transplant Chavo, Hepatology Barbi 08/25/2020 Telephone Transplant Chavo, Appointment Hepatology Nicole Chew (Scheduled 08/13 0 para/thora appt s w/spouse. Katie terrell mailed to pt.) 08/25/2020 Telephone Central Scheduling Nicole Tony 08/25/2020 Telephone Transplant Chavo, Appointment (CIRO Chew Calling to [facility] para/thora appt .) 08/25/2020 Orders Only Transplant Swati Bolivar Cirrhosis of liver with ascites, unspecified hepatic cirrhosis type (HCC) (Primary Dx); Hepatology Kris RN Hydrothorax; Other ascites 08/25/2020 Documentation Transplant Swati Bolivar Hepatology R RN 08/24/2020 Hospital Encounter Radiology Yue Huerta Screeni ng for cancer; MD Elsa Decompensated h epatic cirrhosis (HCC); Awaiting organ transplant status 08/24/2020 Follow-Up Transplant Yue Huerta Awaiting orga n transplant status (Primary Dx); Hepatology MD Elsa Cancer screenin g; Cirrhosis of li elenita with ascites, unspecified hepatic cirrhosis type (HCC) 08/24/2020 Documentation Transplant Swati Bolivar Hepatology R, RN 08/23/2020 Hospital Encounter Radiology Yue Huerta Other a simeon Hunter MD 08/23/2020 Telephone Transplant Chavo, Appointment (CIRO Osuna Hepatology Nicole Chew Calling to [facility] 08/24 appts.) 08/23/2020 Orders Only Transplant Yue Huerta Awaiting orga n transplant status; Hepatology MD Elsa Other cirrhosis of liver (HCC) 08/20/2020 Telephone Central Scheduling Chavo Appointme nt (see Nicole Chew note) 08/20/2020 Orders Only Transplant Swati Bolivar Other ascites Hepatology R, RN (Primary Dx) 07/07/2020 Hospital Encounter Radiology Andrey Abdullahi, Other cir rhosis of liver (HCC); Other ascites 07/06/2020 Documentation Transplant Wen Cornejo Hepatology 07/05/2020 Documentation Transplant Swati Bolivar Hepatology R, RN 07/02/2020 Outside Orders Radiology Yue Huerta MD 07/01/2020 Orders Only Transplant Swati Bolivar Other cirrhos is of liver (HCC) (Primary Dx); Hepatology R, RN Other ascites 07/01/2020 Orders Only Transplant Swati Bolivar Awaiting orga n transplant status; Hepatology R, RN Other cirrhosis of liver (HCC); Screening for c ancer 06/30/2020 Documentation Transplant Chavo Hepatjacky Chew 06/30/2020 Orders Only Transplant Chavo, Awaiting organ transplant status; Hepatology Nicole Chew Other cirrhosis of liver (HCC); Screening for c ancer 06/30/2020 Orders Only Transplant Swati Bolivar Awaiting orga n transplant status (Primary Dx); Hepatology R, RN Other cirrhosis of liver (HCC); Screening for c ancer 06/30/2020 Telephone Transplant Chavo, Appointment Hepatology Nicole Chew (Reschedule appts to the en d of jul but spouse said he would prefer to do it on 08/24. A ppts sxd 08/24 w/spo use (clinic, mri & Feghali @ 12) a lso 07/07 para appt scheduled. Iti nerary mailed. Pt will also be getting meld labs 07/01 @ [facility]) 06/28/2020 Telephone Transplant Chavo, Appointment Hepatology Nicole Chew (Confirmed 06/12 8 appts w/spouse. Covid questions completed.) 04/22/2020 Hospital Encounter Radiology Yue Huerta Other a scites; MD Elsa Hydrothorax 04/22/2020 Orders Only Transplant Swati Bolivar Hydrothorax ( Primary Hepatology R, RN Dx) 04/21/2020 Telephone Transplant Swati Bolivar Follow-up Hepatology R RN 04/21/2020 Telephone Transplant Chavo, Alla Hepatjacky Chew (Scheduled 04/12 para & thoracentesis appts wpt.) 04/21/2020 Orders Only Transplant Swati Bolivar Other ascites (Primary Dx); Hepatology Kris RN Hydrothorax 04/14/2020 Telephone Transplant Chavo, Alla Hepatjacky Chew (Scheduled 06/12 8 clinic, mri & F eghali appt @ 12 w/spo use. Itinerary salvador d to pt.) 04/13/2020 Telephone Transplant Chavo, Appointment (CIRO Osuna Hepatjacky Chew Calling to ryan painting appts due in june (clinic, mri & cardiology w/ali)) 04/12/2020 UNOS Charge Visit Transplant Marnie Pino Other cirr hosis of Hepatology Nick Jaime MD liver (HCC) 04/12/2020 Documentation Transplant Swati Bolivar Hepatology Kris RN 04/09/2020 Orders Only Transplant Swati Bolivar Awaiting orga n transplant status (Primary Dx); Hepatology R RN Decompensated h epatic cirrhosis (HCC); Other cirrhosis of liver (HCC); Screening for c ancer; Encounter for p reprocedural cardiovascular examination 04/09/2020 Abstract Transplant Swati Bolivar Hepatology R RN 04/09/2020 Telephone Transplant Swati Bolivar Follow-up Hepatology R RN 04/08/2020 Orders Only Transplant Swati Bolivar Screening for cancer (Primary Dx); Hepatology R RN Decompensated h epatic cirrhosis (HCC); Awaiting organ transplant status 04/08/2020 Telephone Transplant Swati Bolivar Follow-up Hepatology BAUDILIO Ponce 04/08/2020 Abstract Transplant Alex, Hepatology JD Lackey 04/07/2020 Documentation Transplant Swati Bolivar Hepatology R, RN 04/06/2020 Follow-Up Transplant Luba, Non-alcoholic f atty liver disease (Primary Dx); Hepatology Dorcas Page MD Iron deficien cy anemia, unspecified iron deficiency anemia type; MPH Portal hypertension; Yue Huerta Bleeding esop hageal varices, unspecified esophageal varices type (HCC); MD Elsa Screening for c ancer; Other ascites; Portal vein thr ombosis; History of pleu ral effusion; H/O umbilical h ernia repair; Other cirrhosis of liver (HCC) 04/02/2020 Telephone Transplant Chavo, Appointment (CIRO Osuna Hepatjacky Chew Calling to [facility] 04/06 clinic ap pt w/pt.) 04/01/2020 Hospital Encounter Radiology Luba, Decompens ated hepatic cirrhosis (HCC); Dorcas Page MD Pleural effus ion MPH 03/31/2020 Telephone Transplant Chavo, Appointment (CIRO Chew Calling to [facility] 04/06 clinic ap pt. Pt will need to be seen in Clinic per Jean Pierre harris. itinerary mail ed.) 03/30/2020 Audio - Telemedicine Transplant Luba, Decompe nsated hepatic cirrhosis (HCC) (Primary Dx); Hepatology Dorcas Page MD Pleural effus ion; MPH Other ascites; Adnexal mass; Portal hyperten mica (HCC); Immunity status testing; Immunization co unseling; Hepatic enlarge ment; Hepatic encepha lopathy (HCC); VASQUEZ (nonalcoho lic steatohepatitis) 03/30/2020 Telephone Transplant Swati Bolivar Follow-up (cedric ramirez Hepatology Kris, RN clinic) 03/30/2020 Telephone Transplant Alla Tony Hepatology Nicole Chew (Scheduled 03/13 1 thoracentesis a ppt w/pt. ) 03/29/2020 Telephone Transplant Chavo Appointment (CIRO Chew Called to [facility] 03/30 telephone appt.) 03/23/2020 Hospital Encounter Radiology Luba, Rosangela cir rhosis of liver (HCC); Dorcas Page MD Cirrhosis of liver with ascites, unspecified hepatic cirrhosis type (HCC); MPH Liver mass 03/22/2020 Outside Orders Anne Marie Charlton MD 03/16/2020 Orders Only Transplant Swati Bolivar Decompensated hepatic cirrhosis (HCC) (Primary Dx); Hepatology R, RN Other ascites 03/15/2020 Telephone Transplant Chavo, Appointment (Paul hurst Hepatjacky Chew called and conf irmed rescheduled cli zurdo appt on 03/30.) 03/15/2020 Telephone Transplant Chavo, Appointment (CIRO Osuna Hepatjacky Chew Rescheduled clinic appt to 03/30 per coordinator request due to pt has not done imagin g.) 03/12/2020 Telephone Transplant Chavo, Appointment Hepatology Nicole Chew (Confirmed 5 telephone appt w/spouse.) 03/10/2020 Abstract Transplant Swati Bolivar Hepatology R, RN 03/02/2020 Telephone Transplant Chavo, Appointment Hepatology Nicole Chew (Confirmed 03/[address] appt w/pt. Iti nerary mailed.) 03/01/2020 Telephone Central Scheduling Chavo, Appointme nt (LVM. Nicole Chew Rescheduled mis sed CT abd appt to nex t available appt 03/23/20. Itin erary mailed to pt.) 02/27/2020 Telephone Transplant Chavo, Appointment (CIRO Osuna Hepatjacky Chew Calling to rescheduled mis sed ct appt.) 01/23/2020 Documentation Transplant Tico Hepatology Ale Roberts RN 01/16/2020 Hospital Encounter Radiology Yue Huerta Other c irrhosis of liver (HCC); MD Elsa Other ascites; Anasarca 01/16/2020 Orders Only Hepatology Aubrey, Alcoholic cirrh osis Russ Haile MD of liver with a scites (HCC) 01/16/2020 Orders Only Gagandeep Celaya custodial (cu rrent) MD Hilton use of anticoag ulants 01/15/2020 Orders Only Transplant Gladis Spear, Other cirrhosi s of liver (HCC) (Primary Dx); Hepatology RN Other ascites; Anasarca after 01/02/2020 Immunizations Name Administration Dates Next Due INFLUENZA TRIVALENT ADJUVANTED PF IM 11/27/2019 Family History Medical History Relation Name Comments [...] Vital Signs Vital Sign Reading Time Taken Comments Blood Pressure 131/68 12/16/2020 9:54 AM [employer] Pulse 65 12/16/2020 9:54 AM [employer] Temperature 36.3 C (97.3 F) 12/16/2020 9:54 AM [employer] Respiratory Rate 18 12/16/2020 9:54 AM [employer] Oxygen Saturation 98% 12/16/2020 9:54 AM [employer] Inhaled Oxygen Concentration - - Weight 58.1 kg (128 lb) 12/16/2020 7:57 AM [employer] Height 154.9 cm (5' 1") 11/30/2020 8:26 AM [employer] Body Mass Index 24.19 11/30/2020 8:26 AM [employer] Plan of Treatment Health Maintenance Due Date Last Done Comments COLON CANCER SCREENING COLONOSCOPY 1948 DIABETIC EYE EXAM 1958 DIABETIC FOOT EXAM 1958 URINE MICROALBUMIN 1958 DTAP/TDAP/TD VACCINES (1 - Tdap) 1967 SHINGLES VACCINES (1 of 2) 1998 PNEUMOCOCCAL 65+ YRS (1 of 1 - 2013 [id number]) MEDICARE ANNUAL WELLNESS (YEAR 2 or 11/13/2017 FIRST YEAR if no IPPE) HEMOGLOBIN A1C 05/27/2020 11/27/2019, 10/02/2018, 12/22/2016 INFLUENZA VACCINE (#1) 2020 11/27/2019 BREAST CANCER SCREENING 10/10/2020 10/10/2018 DEPRESSION SCREENING (12+) 11/12/2020 HEPATITIS C SCREENING Completed 10/02/2018 Procedures Procedure Name Priority Date/Time Associated Diagnosis Comme nts MR ABDOMEN WITH & STAT 12/16/2020 12:12 Other cirrhosis of Results for this WITHOUT IV CONTRAST PM [employer] liver (HCC) procedure are in Portal vein thro mbosis the results Encounter for section. screening for other viral diseases Weakness Decreased mobili ty Awaiting organ transplant status BODY FLUID CELL COUNT Routine 12/16/2020 9:50 Re sults for this WITH DIFFERENTIAL AM [employer] procedure are in the results section. CBC W/PLT COUNT & Routine 12/16/2020 6:47 Awaiting organ Resu lts for this AUTO DIFFERENTIAL AM [employer] transplant sta tus procedure are in Decompensated hepatic the re sults cirrhosis (HCC) section. Other cirrhosis of liver (HCC) PROTHROMBIN TIME/INR Routine 12/16/2020 6:47 Awaiting organ R esults for this AM [employer] transplant statu s procedure are in Decompensated hepatic the re sults cirrhosis (HCC) section. Other cirrhosis of liver (HCC) COMPREHENSIVE Routine 12/16/2020 6:47 Awaiting organ Results for this METABOLIC PANEL AM [employer] transplant statu s procedure are in Decompensated hepatic the re sults cirrhosis (HCC) section. Other cirrhosis of liver (HCC) CBC W/PLT COUNT & Routine 12/16/2020 6:47 Awaiting organ Resu lts for this AUTO DIFFERENTIAL AM [employer] transplant sta tus procedure are in Decompensated hepatic the re sults cirrhosis (HCC) section. Other cirrhosis of liver (HCC) BILIRUBIN, DIRECT Routine 12/16/2020 6:47 Awaiting organ Resu lts for this AM [employer] transplant statu s procedure are in Decompensated hepatic the re sults cirrhosis (HCC) section. Other cirrhosis of liver (HCC) ALPHA FETOPROTEIN Routine 12/16/2020 6:47 Awaiting organ Resu lts for this (AFP), TUMOR MARKER AM [employer] transplant s tatus procedure are in Decompensated hepatic the re sults cirrhosis (HCC) section. Other cirrhosis of liver (HCC) Screening for cancer XR CHEST 1 VIEW STAT 11/11/2020 5:39 Results for this PORTABLE/BEDSIDE PM [employer] procedure a re in the results section. XR CHEST 1 VIEW STAT 11/11/2020 4:55 Results for this PORTABLE/BEDSIDE PM [employer] procedure a re in the results section. BODY FLUID CELL COUNT Routine 11/11/2020 4:45 Re sults for this WITH DIFFERENTIAL PM [employer] procedure are in the results section. US THORACENTESIS Routine 11/11/2020 4:40 Pleural effusion Res ults for this PM [employer] procedure are i n the results section. US PARACENTESIS Routine 10/26/2020 4:30 Cirrhosis of liver Re sults for this PM [employer] with ascites, procedure are in unspecified hepatic the resu lts cirrhosis type (HCC) section . BODY FLUID CELL COUNT Routine 10/26/2020 4:20 Re sults for this WITH DIFFERENTIAL PM [employer] procedure are in the results section. CBC W/PLT COUNT & STAT 10/26/2020 2:01 Result s for this AUTO DIFFERENTIAL PM [employer] procedure are in the results section. APTT STAT 10/26/2020 2:01 Results for this PM [employer] procedure are i n the results section. PROTHROMBIN TIME/INR STAT 10/26/2020 2:01 Res ults for this PM [employer] procedure are i n the results section. CBC W/PLT COUNT & STAT 10/26/2020 2:01 Result s for this AUTO DIFFERENTIAL PM [employer] procedure are in the results section. PLATELET ESTIMATION Routine 09/21/2020 10:27 Resu lts for this AM [employer] procedure are i n the results section. ALPHA FETOPROTEIN Routine 09/21/2020 10:27 Awaiting organ Resu lts for this (AFP), TUMOR MARKER AM [employer] transplant s tatus procedure are in Other cirrhosis of the resul ts liver (HCC) section. Screening for cancer BILIRUBIN, DIRECT Routine 09/21/2020 10:27 Awaiting organ Resu lts for this AM [employer] transplant statu s procedure are in Other cirrhosis of the resul ts liver (HCC) section. CBC W/PLT COUNT & Routine 09/21/2020 10:27 Awaiting organ Resu lts for this AUTO DIFFERENTIAL AM [employer] transplant sta tus procedure are in Other cirrhosis of the resul ts liver (HCC) section. COMPREHENSIVE Routine 09/21/2020 10:27 Awaiting organ Results for this METABOLIC PANEL AM [employer] transplant statu s procedure are in Other cirrhosis of the resul ts liver (HCC) section. PROTHROMBIN TIME/INR Routine 09/21/2020 10:27 Awaiting organ R esults for this AM [employer] transplant statu s procedure are in Other cirrhosis of the resul ts liver (HCC) section. XR CHEST 1 VIEW STAT 08/31/2020 11:21 Results for this PORTABLE/BEDSIDE AM CDT procedure a re in the results section. US PARACENTESIS Routine 08/31/2020 11:20 Cirrhosis of liver Re sults for this AM CDT with ascites, procedure are in unspecified hepatic the resu lts cirrhosis type ( HCC) section. Other ascites US THORACENTESIS Routine 08/31/2020 11:20 Cirrhosis of liver R esults for this AM CDT with ascites, procedure are in unspecified hepatic the resu lts cirrhosis type ( HCC) section. Hydrothorax BODY FLUID CELL COUNT Routine 08/31/2020 11:10 Re sults for this WITH DIFFERENTIAL AM CDT procedure are in the results section. BODY FLUID CELL COUNT Routine 08/31/2020 10:22 Re sults for this WITH DIFFERENTIAL AM CDT procedure are in the results section. MR ABDOMEN WITH & Routine 08/24/2020 11:50 Screening for cancer Results for this WITHOUT IV CONTRAST AM CDT Decompensated hepatic procedure are in cirrhosis (HCC) the results Awaiting organ section. transplant status CBC W/PLT COUNT & Routine 08/24/2020 9:54 Awaiting organ Resu lts for this AUTO DIFFERENTIAL AM CDT transplant sta tus procedure are in Cirrhosis of liver the resul ts with ascites, section. unspecified hepatic cirrhosis type (HCC) PROTHROMBIN TIME/INR Routine 08/24/2020 9:54 Awaiting organ R esults for this AM CDT transplant statu s procedure are in Cirrhosis of liver the resul ts with ascites, section. unspecified hepatic cirrhosis type (HCC) COMPREHENSIVE Routine 08/24/2020 9:54 Awaiting organ Results for this METABOLIC PANEL AM CDT transplant statu s procedure are in Cirrhosis of liver the resul ts with ascites, section. unspecified hepatic cirrhosis type (HCC) CBC W/PLT COUNT & Routine 08/24/2020 9:54 Awaiting organ Resu lts for this AUTO DIFFERENTIAL AM CDT transplant sta tus procedure are in Cirrhosis of liver the resul ts with ascites, section. unspecified hepatic cirrhosis type (HCC) BILIRUBIN, DIRECT Routine 08/24/2020 9:54 Awaiting organ Resu lts for this AM CDT transplant statu s procedure are in Cirrhosis of liver the resul ts with ascites, section. unspecified hepatic cirrhosis type (HCC) ALPHA FETOPROTEIN Routine 08/24/2020 9:54 Awaiting organ Resu lts for this (AFP), TUMOR MARKER AM CDT transplant s tatus procedure are in Cancer screening the results Cirrhosis of liver section. with ascites, unspecified hepatic cirrhosis type (HCC) BODY FLUID CELL COUNT Routine 08/23/2020 9:54 Re sults for this WITH DIFFERENTIAL AM CDT procedure are in the results section. US PARACENTESIS Routine 08/23/2020 9:50 Other ascites Results for this AM CDT procedure are i n the results section. CBC W/PLT COUNT & Routine 08/23/2020 8:05 Awaiting organ Resu lts for this AUTO DIFFERENTIAL AM CDT transplant sta tus procedure are in Other cirrhosis of the resul ts liver (HCC) section. CBC W/PLT COUNT & Routine 08/23/2020 8:05 Awaiting organ Resu lts for this AUTO DIFFERENTIAL AM CDT transplant sta tus procedure are in Other cirrhosis of the resul ts liver (HCC) section. PROTHROMBIN TIME/INR Routine 08/23/2020 8:04 Awaiting organ R esults for this AM CDT transplant statu s procedure are in Other cirrhosis of the resul ts liver (HCC) section. BODY FLUID CELL COUNT Routine 07/07/2020 9:49 Re sults for this WITH DIFFERENTIAL AM CDT procedure are in the results section. US PARACENTESIS Routine 07/07/2020 9:38 Other cirrhosis of Re sults for this AM CDT liver (HCC) procedure are in Other ascites the results section. ALPHA FETOPROTEIN Routine 07/01/2020 10:30 Awaiting organ Resu lts for this (AFP), TUMOR MARKER AM CDT transplant s tatus procedure are in Other cirrhosis of the resul ts liver (HCC) section. Screening for cancer BILIRUBIN, DIRECT Routine 07/01/2020 10:30 Awaiting organ Resu lts for this AM CDT transplant statu s procedure are in Other cirrhosis of the resul ts liver (HCC) section. CBC W/PLT COUNT & Routine 07/01/2020 10:30 Awaiting organ Resu lts for this AUTO DIFFERENTIAL AM CDT transplant sta tus procedure are in Other cirrhosis of the resul ts liver (HCC) section. COMPREHENSIVE Routine 07/01/2020 10:30 Awaiting organ Results for this METABOLIC PANEL AM CDT transplant statu s procedure are in Other cirrhosis of the resul ts liver (HCC) section. PROTHROMBIN TIME/INR Routine 07/01/2020 10:30 Awaiting organ R esults for this AM CDT transplant statu s procedure are in Other cirrhosis of the resul ts liver (HCC) section. XR CHEST 1 VIEW STAT 04/22/2020 11:14 Results for this PORTABLE/BEDSIDE AM CDT procedure a re in the results section. XR CHEST 1 VIEW STAT 04/22/2020 9:38 Results for this PORTABLE/BEDSIDE AM CDT procedure a re in the results section. US ABDOMEN LIMITED Routine 04/22/2020 9:09 Resul ts for this AM CDT procedure are i n the results section. US THORACENTESIS Routine 04/22/2020 9:09 Hydrothorax Results for this AM CDT procedure are i n the results section. BODY FLUID CELL COUNT Routine 04/22/2020 8:53 Re sults for this WITH DIFFERENTIAL AM CDT procedure are in the results section. CBC W/PLT COUNT & Routine 04/06/2020 11:09 Iron deficiency Res ults for this AUTO DIFFERENTIAL AM CDT anemia, unspecified pro cedure are in iron deficiency anemia the r esults type section. PROTHROMBIN TIME/INR Routine 04/06/2020 11:09 Non-alcoholic fa tty Results for this AM CDT liver disease procedure are in the results section. COMPREHENSIVE Routine 04/06/2020 11:09 Non-alcoholic fatty Res ults for this METABOLIC PANEL AM CDT liver disease procedure a re in the results section. CBC W/PLT COUNT & Routine 04/06/2020 11:09 Iron deficiency Res ults for this AUTO DIFFERENTIAL AM CDT anemia, unspecified pro cedure are in iron deficiency anemia the r esults type section. BILIRUBIN, DIRECT Routine 04/06/2020 11:09 Non-alcoholic fatty Results for this AM CDT liver disease procedure are in the results section. XR CHEST 1 VIEW STAT 04/01/2020 4:51 Results for this PORTABLE/BEDSIDE PM CDT procedure a re in the results section. US THORACENTESIS Routine 04/01/2020 4:41 Decompensated hepati c Results for this PM CDT cirrhosis (HCC) procedure are in Pleural effusion the results section. BODY FLUID CULTURE + Routine 04/01/2020 4:40 Res ults for this GRAM STAIN PM CDT procedure are i n the results section. BODY FLUID CELL COUNT Routine 04/01/2020 4:39 Re sults for this WITH DIFFERENTIAL PM CDT procedure are in the results section. CBC W/PLT COUNT & Routine 04/01/2020 2:07 Result s for this AUTO DIFFERENTIAL PM CDT procedure are in the results section. APTT Routine 04/01/2020 2:07 Results for this PM CDT procedure are i n the results section. PROTHROMBIN TIME/INR Routine 04/01/2020 2:07 Res ults for this PM CDT procedure are i n the results section. CBC W/PLT COUNT & Routine 04/01/2020 2:07 Result s for this AUTO DIFFERENTIAL PM CDT procedure are in the results section. CT ABDOMEN WITH & Routine 03/23/2020 11:32 Other cirrhosis of Results for this WITHOUT IV CONTRAST AM CDT liver (HCC) procedure are in Cirrhosis of liver the resul ts with ascites, section. unspecified hepatic cirrhosis type ( HCC) Liver mass POCT-CREATININE Routine 03/23/2020 11:18 Results for this AM CDT procedure are i n the results section. US ABDOMEN LIMITED Routine 01/17/2020 7:29 Resul ts for this AM [employer] procedure are i n the results section. 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 PROTHROMBIN TIME/INR Routine 01/16/2020 8:33 custodial (curre nt) Results for this AM [employer] use of anticoagulants proced ure are in the results section. after 01/02/2020 Results MR abdomen with/without IV contrast (12/16/2020 12:12 PM [employer])Only the most recent of2 resultswithin the time period is included. Specimen Narrative Performed At Addendum Begins [facility] REPORT STATUS:A IMPRESSION should also include: 0.5 cm c ystic lesion in the pancreatic body. Signed: Jr Bolanos MD Report Verified Date/Time: 12/16/2020 14:18:54 Addendum Ends FINAL REPORT TECHNIQUE: MRI of the abdomen WITHOUT an d WITH intravenous contrast. INDICATION: 70-year-old woman with cirrh osis and portal vein thrombosis. COMPARISON: Abdomen MRI 08/24/2020. FINDINGS: Suboptimal evaluation due to motion arlene fact on postcontrast sequences. LOWER THORAX: Persistent large right ple ural effusion with relaxation atelectasis of the adjacent right lung. LIVER: Cirrhotic morphology of the liver . No significant change in size of the 0.9 cm arterially enhancing observation in the periphery of segment V with washout and pseudocaps ule (LI-RADS 4, axial postcontrast arterial series image 58). No significant change in the 2.2 x 1.8 cm cyst in segment VIII (LI-RA DS 1). BILIARY: Prior cholecystectomy. Common d uct remains at the upper limit of normal in caliber without defin ite filling defect. Unchanged. No significant change in none nhancing linear T2 hyperintensities adjacent to the cyst in hepatic segment VIII, which may represent mildly prominent bile duct s or small thrombosed branches of the right portal vein. SPLEEN: Spleen is prominent and measures 15.8 cm in the craniocaudal dimension. PANCREAS: Pancreatic tail is not clearly visualized due to susceptibility artifact in the adjacent stomach. 0.5 cm unilocular cyst in the pancreatic body. No solid ma ss or ductal dilatation in the visualized pancreas. ADRENALS: No adrenal nodule. KIDNEYS/URETERS: No hydronephrosis or ma ss. Subcentimeter cyst in the right lower pole. PERITONEUM/RETROPERITONEUM: Persistent m oderate volume ascites. LYMPH NODES: No lymphadenopathy. VESSELS: Unchanged nonocclusive thrombus in the right portal vein and right hepatic vein. Unchanged to slightl y decreased nonocclusive thrombus in the main portal and superior mesenteric veins. Main portal vein is prominent and measures 1. 5 cm in diameter. Recanalized umbilical vein. Esophageal varices. Conv entional hepatic arterial anatomy. Abdominal aorta is normal in ca liber. GI TRACT: Unchanged susceptibility artif act in the region of the stomach. No or distention or bowel wall thickening. BONES AND SOFT TISSUES: Unremarkable. IMPRESSION: Suboptimal evaluation due to motion and susceptibility artifacts. Cirrhosis with portal hypertension and m oderate volume ascites. No significant change in size of the 0.9 cm arterially enhancing observation in segment V, which is suspi cious for hepatocellular carcinoma (LI-RADS 4). Unchanged nonocclusive thrombus in the r ight portal and right hepatic veins. Unchanged to slightly decreased n onocclusive thrombus in the main portal and superior mesenteric vein s. Unchanged linear structures adjacent to the cyst in hepatic segment VIII may represent mildly prominent bile ducts or small thrombosed branches of the right portal vein. Large right pleural effusion. Signed: Jr Bolanos MD Report Verified Date/Time: 12/16/2020 12:58:09 Procedure Note Interface, External Ris In - 12/16/2020 2:21 PM [employer] Addendum Begins REPORT STATUS:A IMPRESSION should also include: 0.5 cm c ystic lesion in the pancreatic body. Signed: Jr Bolanos MD Report Verified Date/Time: 12/16/2020 1 4:18:54 Addendum Ends FINAL REPORT TECHNIQUE: MRI of the abdomen WITHOUT an d WITH intravenous contrast. INDICATION: 70-year-old woman with cirrh osis and portal vein thrombosis. COMPARISON: Abdomen MRI 08/24/2020. FINDINGS: Suboptimal evaluation due to motion arlene fact on postcontrast sequences. LOWER THORAX: Persistent large right ple ural effusion with relaxation atelectasis of the adjacent right lung. LIVER: Cirrhotic morphology of the liver . No significant change in size of the 0.9 cm arterially enhancing observation in the periphery of segment V with washout and pseudocaps ule (LI-RADS 4, axial postcontrast arterial series image 58). No significant change in the 2.2 x 1.8 cm cyst in segment VIII (LI-RA DS 1). BILIARY: Prior cholecystectomy. Common d uct remains at the upper limit of normal in caliber without defin ite filling defect. Unchanged. No significant change in none nhancing linear T2 hyperintensities adjacent to the cyst in hepatic segment VIII, which may represent mildly prominent bile duct s or small thrombosed branches of the right portal vein. SPLEEN: Spleen is prominent and measures 15.8 cm in the craniocaudal dimension. PANCREAS: Pancreatic tail is not clearly visualized due to susceptibility artifact in the adjacent stomach. 0.5 cm unilocular cyst in the pancreatic body. No solid ma ss or ductal dilatation in the visualized pancreas. ADRENALS: No adrenal nodule. KIDNEYS/URETERS: No hydronephrosis or ma ss. Subcentimeter cyst in the right lower pole. PERITONEUM/RETROPERITONEUM: Persistent m oderate volume ascites. LYMPH NODES: No lymphadenopathy. VESSELS: Unchanged nonocclusive thrombus in the right portal vein and right hepatic vein. Unchanged to slightl y decreased nonocclusive thrombus in the main portal and superior mesenteric veins. Main portal vein is prominent and measures 1. 5 cm in diameter. Recanalized umbilical vein. Esophageal varices. Conv entional hepatic arterial anatomy. Abdominal aorta is normal in ca liber. GI TRACT: Unchanged susceptibility artif act in the region of the stomach. No or distention or bowel wall thickening. BONES AND SOFT TISSUES: Unremarkable. IMPRESSION: Suboptimal evaluation due to motion and susceptibility artifacts. Cirrhosis with portal hypertension and m oderate volume ascites. No significant change in size of the 0.9 cm arterially enhancing observation in segment V, which is suspi cious for hepatocellular carcinoma (LI-RADS 4). Unchanged nonocclusive thrombus in the r ight portal and right hepatic veins. Unchanged to slightly decreased n onocclusive thrombus in the main portal and superior mesenteric vein s. Unchanged linear structures adjacent to the cyst in hepatic segment VIII may represent mildly prominent bile ducts or small thrombosed branches of the right portal vein. Large right pleural effusion. Signed: Jr Bolanos MD Report Verified Date/Time: 12/16/2020 1 2:58:09 Performing Organization Address City/[facility] Cent[facility]ode Phone Number RIS Body fluid cell count with differential (12/16/2020 9:50 AM [employer])Only the most recent of9 resultswithin the time period is included. Appearance Clear Clear [facility] Color Yellow (A) Colorless, [facility] RBCs 149 (H) <=1 /cu mm [facility] Adjusted WBC Count 30 (H) <=5 /cu mm [facility] Lining Cells 1 <=1 /cu mm [facility] % Segs 13 % [facility] % Lymphs 47 % [facility] % Monos 39 % [facility] % Eos 0 % [facility] % Baso 1 % [facility] Container Body Fluid Sterile Vial [facility] Specimen Body Fluid - Ascites (disorder) Performing Organization Address City/[facility] Centercode Phone Number [address] [place] [address] CENTER CBC with platelet count + automated diff (12/16/2020 6:47 AM [employer])Only the most recent of7 resultswithin the time period is included. Pathologist Sig nature WBC 3.2 (L) 3.5 - 10.5 [facility] K/L [facility] RBC 3.22 (L) 3.93 - 5.22 [facility] M/L [facility] Hemoglobin 8.9 (L) 11.2 - 15.7 [facility] GM/DL [facility] Hematocrit 28.6 (L) 34.1 - 44.9 % [facility] MCV 88.8 79.4 - 94.8 fL [facility] MCH 27.6 25.6 - 32.2 pg [facility] MCHC 31.1 (L) 32.2 - 35.5 [facility] GM/DL [facility] RDW 16.1 (H) 11.7 - 14.4 % [facility] Platelets 83 (L) 150 - 450 K/CU [facility] MPV 10.0 9.4 - 12.3 fL [facility] nRBC 0 0 - 0 /100 WBC [facility] % Neutros 83 % [facility] % Lymphs 8 % [facility] % Monos 7 % [facility] % Eos 1 % [facility] % Baso 1 % [facility] # Neutros 2.67 1.56 - 6.13 [facility] # Lymphs 0.26 (L) 1.18 - 3.74 [facility] # Monos 0.22 (L) 0.24 - 0.36 [facility] # Eos 0.04 0.04 - 0.36 [facility] K/L [facility] # Baso 0.02 0.01 - 0.08 [facility] K/L [facility] Immature 0 0 - 1 % [facility] Granulocytes-Relative [facility] Specimen Blood Performing Organization Address City/[facility]/Zipcode Phone Number [address] [address] [place] Alpha fetoprotein (AFP), tumor marker (12/16/2020 6:47 AM [employer])Only the most recent of4 resultswithin the time period is included. Pathologist Sig nature Alpha-Fetoprotein 2.3 <10.0 ng/mL [facility] Specimen Blood Narrative Performed At Side Trimmer JULES Diane [facility] Performing Organization Address [facility] Centercori Phone Number [address] [address] CENTER Prothrombin time/INR (12/16/2020 6:47 AM [employer])Only the most recent of9 results within the time period is included. Pathologist Sig nature Protime 17.8 (H) 11.9 - 14.2 seconds [facility] INR 1.52 <=5.90 [facility] Specimen Blood Narrative Performed At Effective 04/09/2019: PT Reference Range [facility] Change New: 11.9-14.2 Previous: 11.7-14.7 RECOMMENDED COUMADIN/WARFARIN INR THERAPY RANGES STANDARD DOSE: 2.0-3.0 Includes: PROPHYLAXIS for venous thrombosis, systemic embolization; TREATMENT for venous thrombosis and/or pulmonary embolus. HIGH RISK: Target INR is 2.5-3.5 for patients wiht mechanical heart valves. Performing Organization Address City/State/Zipcode Phone Number [address] [address] CENTER Bilirubin, direct (12/16/2020 6:47 AM [employer])Only the most recent of5 results within the time period is included. Pathologist Sig nature Bilirubin, Direct 0.5 0.1 - 0.5 mg/dL [facility] Specimen Blood Narrative Performed At Side Trimmer JULES Diane [facility] Performing Organization Address City/State/Zipcode Phone Number [facility] [address] [place] [address] CENTER Comprehensive metabolic panel (12/16/2020 6:47 AM [employer])Only the most recent of5 resultswithin the time period is included. Protein, Total 7.7 6.0 - 8.3 [facility] gm/dL [facility] Albumin 3.3 (L) 3.5 - 5.0 [facility] g/dL [facility] Alkaline 89 40 - 150 U/L [facility] Phosphatase [facility] Total Bilirubin 0.9 0.2 - 1.2 [facility] mg/dL [facility] Sodium 135 (L) 136 - 145 [facility] meq/L [facility] Potassium 4.5 3.5 - 5.1 [facility] meq/L [facility] Chloride 104 98 - 107 [facility] meq/L [facility] CO2 28 22 - 29 meq/L [facility] BUN 13 7 - 21 mg/dL [facility] Creatinine 1.09 0.57 - 1.25 [facility] mg/dL [facility] Glucose 147 (H) 70 - 105 [facility] mg/dL [facility] Calcium 9.1 8.4 - 10.2 [facility] mg/dL [facility] AST 28 5 - 34 U/L [facility] ALT 14 6 - 55 U/L [facility] EGFR 49Comment: mL/min/1.73 [facility] ESTIMATED GFR IS sq [facility] NOT ACCURATE MEDICAL CENTER CREATININE CLEARANCE IN PREDICTING GLOMERULAR FILTRATION RATE. ESTIMATED GFR IS NOT APPLICABLE FOR DIALYSIS PATIENTS. Specimen Blood Narrative Performed At Side Trimmer ID - ADRIA Diane [facility] Performing Organization Address City/State/Zipcode Phone Number [facility] [address] [place] [address] CENTER XR chest 1 view portable / bedside (11/11/2020 5:39 PM [employer])Only the most recent of6 resultswithin the time period is included. Specimen Narrative Performed At FINAL REPORT GE RIS TECHNIQUE: Frontal view of the chest. INDICATION: follow up cxr post right tho ra skin fold vs. PTX. COMPARISON: Chest radiographs dating [facility] to 09/26/2017 FINDINGS: LINES/TUBES: None. LUNGS: The previously seen possible righ t upper lung nodule has resolved. There is a linear opacity of t he left upper chest which measures 0.4 cm. No consolidation or pul monary edema. PLEURA: Small right pleural effusion. No definite pneumothorax is seen. However, there is still a likely s kinfold over the right upper chest. HEART AND MEDIASTINUM: The cardiac silho uette is normal in size. SOFT TISSUES AND BONES: Biopsy clip over the stomach.. IMPRESSION: There is likely no pneumothorax. There i s still a skinfold over the right upper chest. Small residual right pleural effusion. A linear opacity of the left upper chest measures 0.4 cm. A follow-up radiograph is recommended in one year to document stability. Signed: Maykel Flynn MD Report Verified Date/Time: 11/11/2020 18:05:58 Reading Location: [address] Procedure Note Interface, External Ris In - 11/11/2020 6:08 PM [employer] FINAL REPORT TECHNIQUE: Frontal view of the chest. INDICATION: follow up cxr post right tho ra skin fold vs. PTX. COMPARISON: Chest radiographs dating [facility] to 09/26/2017 FINDINGS: LINES/TUBES: None. LUNGS: The previously seen possible righ t upper lung nodule has resolved. There is a linear opacity of t he left upper chest which measures 0.4 cm. No consolidation or pul monary edema. PLEURA: Small right pleural effusion. No definite pneumothorax is seen. However, there is still a likely s kinfold over the right upper chest. HEART AND MEDIASTINUM: The cardiac silho uette is normal in size. SOFT TISSUES AND BONES: Biopsy clip over the stomach.. IMPRESSION: There is likely no pneumothorax. There i s still a skinfold over the right upper chest. Small residual right pleural effusion. A linear opacity of the left upper chest measures 0.4 cm. A follow-up radiograph is recommended in one year to document stability. Signed: Maykel Flynn MD Report Verified Date/Time: 11/11/2020 1 8:05:58 Reading Location: [facility] [id number] Consult R eading Room Performing Organization Address City/State/Zipcode Phone Number [facility] THORACENTESIS (11/11/2020 4:40 PM [employer])Only the most recent of4 resultswithin the time period is included. Specimen Narrative Performed At FINAL REPORT [facility] Exam: Ultrasound guided thoracentesis Clinical History: Right-sided Pleural Ef fusion Clinical Abstractor: Shasha Hall PA-C Supervising Physician: Lobo Bauer MD Consent: Benefits and risks were expla ined to the patient who gave consent to the procedure. Complication: None Immediate Procedure: The patient was placed in s ittingposition. The right posterior chest was prepped and draped i n usual sterile fashion. 2% lidocaine was used as local anesthetic. Under ultrasound guidance, a thoracentesis catheter was inserted into the pleural cavity. Approximately 2000 cc of clear yellow pl eural fluid was aspirated. The catheter was removed. The specimen w as sent to the laboratory for further analysis. The patient tolerated the procedure well without any adverse reaction. A STAT chest x-ray was ordered. The patient left the department in stable condition. Impression: Ultrasound guided right-si ded thoracentesis. Signed: Lobo Bauer MD Report Verified Date/Time: 11/15/2020 09:44:42 Reading Location: [facility] B1 [id number] Ultrasoun d Reading Room Procedure Note Interface, External Ris In - 11/15/2020 9:46 AM [employer] FINAL REPORT Exam: Ultrasound guided thoracentesis Clinical History: Right-sided Pleural Ef fusion Clinical Abstractor: Shasha Hall PA-C Supervising Physician: Lobo Bauer MD Consent: Benefits and risks were explai ronan to the patient who gave consent to the procedure. Complication: None Immediate Procedure: The patient was placed in si ttingposition. The right posterior chest was prepped and draped i n usual sterile fashion. 2% lidocaine was used as local anesthetic. Under ultrasound guidance, a thoracentesis catheter was inserted into the pleural cavity. Approximately 2000 cc of clear yellow pl eural fluid was aspirated. The catheter was removed. The specimen w as sent to the laboratory for further analysis. The patient tolerated the procedure well without any adverse reaction. A STAT chest x-ray was ordered. The patient left the department in stable condition. Impression: Ultrasound guided right-arin ed thoracentesis. Signed: Lobo Bauer MD Report Verified Date/Time: 11/15/2020 0 9:44:42 Reading Location: [facility] P006J [facility] Reading Room Performing Organization Address City/State/Zipcode Phone Number [facility] PARACENTESIS (10/26/2020 4:30 PM [employer] SALESPERSON)Only the most recent of4 resultswithin the time period is included. Specimen Narrative Performed At FINAL REPORT [facility] Ultrasound guided paracentesis Clinical History: Ascites. Sedation: None. Clinical Abstractor: Shasha Hall PA-C Supervising Physician: Marnie Joy MD Paper Supervisor: None. Estimated Blood Loss: < 1 mL. Specimen: 2400 mL of clear yellow fluid, samples sent to laboratory. Technique: Informed consent was obtain ed. The risks of pain, bleeding, infection, bowel perforation, injury to adjacent structures, and adverse medication react ions were discussed with the patient. After informed consent was o btained, the patient's abdomen was scanned. The right lower quadrant of the abdomen was selected for paracentesis. After the largest fl uid pocket area was marked, and the anterior abdominal wall was eval uated with color Doppler to exclude presence of blood vessels holly sing the area, the skin was prepped and draped in the usual sterile manner. After local anesthesia was achieved with lidocaine, a 5 Welsh one-step catheter was advanced into the peritoneal cavity under ultrasound guidance. After completion of drainage, the cathet er was removed. There was no evidence of complication. Impression: Successful ultrasound guided paracentesi s. Signed: Marnie Joy MD Report Verified Date/Time: 10/27/2020 12:21:45 Reading Location: [facility] [id number] Ultrasoun d Reading Room Procedure Note Interface, External Ris In - 10/27/2020 12:24 PM [employer] SALESPERSON FINAL REPORT Ultrasound guided paracentesis Clinical History: Ascites. Sedation: None. Clinical Abstractor: Shasha Hall PA-C Supervising Physician: Marnie Joy MD Paper Supervisor: None. Estimated Blood Loss: < 1 mL. Specimen: 2400 mL of clear yellow fluid, samples sent to laboratory. Technique: Informed consent was obtaine d. The risks of pain, bleeding, infection, bowel perforation, injury to adjacent structures, and adverse medication react ions were discussed with the patient. After informed consent was ob tained, the patient's abdomen was scanned. The right lower quadrant o f the abdomen was selected for paracentesis. After the largest flu id pocket area was marked, and the anterior abdominal wall was eval uated with color Doppler to exclude presence of blood vessels holly sing the area, the skin was prepped and draped in the usual sterile manner. After local anesthesia was achieved with lidocaine, a 5 Welsh one-step catheter was advanced into the peritoneal cavity under ultrasound guidance. After completion of drainage, the cathet er was removed. There was no evidence of complication. Impression: Successful ultrasound guided paracentesi s. Signed: Marnie Joy MD Report Verified Date/Time: 10/27/2020 1 2:21:45 Reading Location: [facility] B1 P006J Ultrasoun d Reading Room Performing Organization Address City/State/Zipcode Phone Number [facility] aPTT (10/26/2020 2:01 PM [employer] SALESPERSON)Only the most recent of2 resultswithin the time period is included. Pathologist Sig nature PTT 36.0 22.5 - 36.0 seconds [facility] Specimen Blood Performing Organization Address City/State/Zipcode Phone Number [facility] [address] [place] [address] CENTER PLATELET ESTIMATION (09/21/2020 10:27 AM [employer]YING [employer] SALESPERSON) Pathologist Sig nature Platelet Estimate DECREASED (A) ADEQUATE [facility] Specimen Narrative Performed At FASTING:NO [facility] FASTING: NO Resulting Agency Comment Performing Organization Information: Site ID: [id number] Name: [facility] Sherron casillas Address: [address] [place] [id number] Director: Best Child[employer] Performing Organization Address City/State/Zipcode Phone Number [facility] [address] [place] [address] [facility] CBC with platelet count + automated diff (09/21/2020 10:27 AM [employer] SALESPERSON)Only the most recent of2 resultswithin the time period is included. Pathologist Sig nature WBC 3.4 (L) 3.8 - 10.8 [facility] Thousand/uL RBC 2.87 (L) 3.80 - 5.10 [place] Million/uL Hemoglobin 8.3 (L) 11.7 - 15.5 g/dL [facility] Hematocrit 25.6 (L) 35.0 - 45.0 % [facility] MCV 89.2 80.0 - 100.0 fL [facility] MCH 28.9 27.0 - 33.0 pg [facility] MCHC 32.4 32.0 - 36.0 g/dL [facility] RDW 13.8 11.0 - 15.0 % [facility] Platelets 80 (L) 140 - 400 [facility] Thousand/uL MPV 10.8 7.5 - 12.5 fL [facility] # Neutros 2,856 1,500 - 7,800 [facility] cells/uL # Lymphs 286 (L) 850 - 3,900 [facility] cells/uL # Monos 207 200 - 950 [place] cells/uL # Eos 31 15 - 500 cells/uL [facility] # Baso 20 0 - 200 cells/uL [facility] % Neutros 84 % [facility] % Lymphs 8.4 % [place] % Monos 6.1 % [facility] % Eos 0.9 % [facility] % Baso 0.6 % [facility] Comment(s) Comment: Giant [facility] platelets noted. Specimen Blood Narrative Performed At FASTING:NO [facility] FASTING: NO Resulting Agency Comment Performing Organization Information: Site ID: [id number] Name: [facility] Address: [address] [place] [address] Director: eBst Childs Performing Organization Address City/State/Zipcode Phone Number [facility] [address] [place] [address] [facility] [place] abdomen limited (04/22/2020 9:09 AM CDT)Only the most recent of2 results within the time period is included. Specimen Narrative Performed At FINAL REPORT [facility] History: Ascites. PROCEDURE: Limited sonographic examination of the a bdomen was performed in preparation for planned ultrasound-guide d paracentesis. Limited sonographic examination of the abdomen s howed a small amount of fluid, primarily in the right upper quad rant. Therefore, paracentesis was not performed. IMPRESSION: 1. Small ascites, not enough for planned therapeutic paracentesis. Signed: Marnie Joy MD Report Verified Date/Time: 04/22/2020 10:05:27 Reading Location: [facility] [id number] [facility] Reading Room Procedure Note Interface, External Ris In - 04/22/2020 10:07 AM CDT FINAL REPORT History: Ascites. PROCEDURE: Limited sonographic examination of the a bdomen was performed in preparation for planned ultrasound-guide d paracentesis. Limited sonographic examination of the abdomen s howed a small amount of fluid, primarily in the right upper quad rant. Therefore, paracentesis was not performed. IMPRESSION: 1. Small ascites, not enough for planned therapeutic paracentesis. Signed: Marnie Joy MD Report Verified Date/Time: 04/22/2020 1 0:05:27 Reading Location: [facility] B1 P006J [facility] Reading Room Performing Organization Address City/State/Zipcode Phone Number [facility] Body fluid culture + gram stain (04/01/2020 4:40 PM CDT) Result No growth [facility] Gram Stain Result 1+ White blood [facility] cells seen [facility] Gram Stain Result No organisms seen [facility] Specimen Body Fluid - Ascites (disorder) Performing Organization Address City/State/Zipcode Phone Number [facility] [address] [place] [address] abdomen with and without contrast liver prctocol-triple phase (03/23/2020 11:32 AM CDT) Specimen Narrative Performed At FINAL REPORT [facility] ABDOMINAL CT DATED 03/23/2020 COMPARISON: November 28, 2019 CLINICAL INFORMATION: liver lesion, ci rrhosis, TECHNIQUE: Axial images of the abdomen were obtained from diaphragm to the upper pelvis with and without int ravenous contrast. This exam was performed according to our departmental dose-optimization program, which include s automated exposure control, adjustment of the mA and/or kV according to patient size and/or use of interactive reconstruction technique. COMMENT: Moderate to large right pleural effusion is present. Liver is cirrhotic in appearance with ir regular margins. A 1.9 cm cyst is seen in the segment 8 of the eddie er. A stable 0.7 x 1.1 cm early enhancing lesion seen in the perip heral segment 5 of the liver with delayed washout suggestive of hepat ocellular carcinoma. No other lesion seen in the liver. Spleen is enla rged measuring 14.2 x 5.8 x 12.1 cm. The splenic, superior mesenteri c, portal, and hepatic veins are patent. Main portal vein measures 1. 2 cm in diameter. No portal vein thrombosis is seen. There is paraes ophageal varices and recannulization periumbilical vein. Gallbladder is surgically absent. No taisha iary dilatation is noted. Pancreas and adrenals are unremarkable. Both kidneys are normal in size and func tioning with prompt bilateral excretion. No hydronephrosis, solid or c ystic mass is seen in either kidney. Diverticular disease is seen in the larg e bowel without diverticulitis. The small bowel and appe ndix are normal in caliber. Small amount of ascites is seen in the a bdomen. There is diffusely increased attenuation in the mesentery a nd omentum suggestive edema. IMPRESSION: 1. Right pleural effusion. 2. Cirrhosis with splenomegaly and kemar l hypertension. 3. Stable suspicious mass in the segment 5 of the liver. 4. Ascites and mesenteric edema. Signed: Kamari Vega MD Report Verified Date/Time: 03/23/2020 13:48:23 Reading Location: [facility] C013Y CT Body R ding Room Procedure Note Interface, External Ris In - 03/23/2020 1:50 PM CDT FINAL REPORT ABDOMINAL CT DATED 03/23/2020 COMPARISON: November 28, 2019 CLINICAL INFORMATION: liver lesion, cir rhosis, TECHNIQUE: Axial images of the abdomen were obtained from diaphragm to the upper pelvis with and without int ravenous contrast. This exam was performed according to our departmental dose-optimization program, which include s automated exposure control, adjustment of the mA and/or kV according to patient size and/or use of interactive reconstruction technique. COMMENT: Moderate to large right pleural effusion is present. Liver is cirrhotic in appearance with ir regular margins. A 1.9 cm cyst is seen in the segment 8 of the eddie er. A stable 0.7 x 1.1 cm early enhancing lesion seen in the perip heral segment 5 of the liver with delayed washout suggestive of hepat ocellular carcinoma. No other lesion seen in the liver. Spleen is enla rged measuring 14.2 x 5.8 x 12.1 cm. The splenic, superior mesenteri c, portal, and hepatic veins are patent. Main portal vein measures 1. 2 cm in diameter. No portal vein thrombosis is seen. There is paraes ophageal varices and recannulization periumbilical vein. Gallbladder is surgically absent. No taisha iary dilatation is noted. Pancreas and adrenals are unremarkable. Both kidneys are normal in size and func tioning with prompt bilateral excretion. No hydronephrosis, solid or c ystic mass is seen in either kidney. Diverticular disease is seen in the larg e bowel without diverticulitis. The small bowel and appe ndix are normal in caliber. Small amount of ascites is seen in the a bdomen. There is diffusely increased attenuation in the mesentery a nd omentum suggestive edema. IMPRESSION: 1. Right pleural effusion. 2. Cirrhosis with splenomegaly and kemar l hypertension. 3. Stable suspicious mass in the segment 5 of the liver. 4. Ascites and mesenteric edema. Signed: Kamari Vega MD Report Verified Date/Time: 03/23/2020 1 3:48:23 Reading Location: [facility] B1 C013Y CT Body R eading Room Performing Organization Address City/State/Zipcode Phone Number [facility] POC-Creatinine (03/23/2020 11:18 AM CDT) POC-Creatinine 1.1Comment: : 0.6 - 1.3 mg/dL [facility] TESTED AT [address], [address]: Side Trimmer/Technici an ID = [id number] for Gladis Neri POC-EGFR 49 mL/min/1.73M2 [facility] Specimen Blood Performing Organization Address City/State/[facility] Phone Number [address] [phone] CENTER after 01/02/2020 Insurance Payer Benefit Plan / Subscriber ID Effective Phone Address T [employer] [facility] CARE [id number] 2018-Pres IMPROVEMENT IMPROVEMENT ent MEDICARE MGD PLUS CARE [facility] [id number] 2018-Pres Tra nsplants RESOURCES NET[employer] ONLY MCR REPL ent - MEDICARE MGD CARE Advance Directives For more information, please contact: [phone] Code Status Date Activated Date Inactivated Comments Full Code 08/23/2020 12:38 PM 08/24/2020 4:23 AM This code status was determined by: Patient Full Code 11/26/2019 4:22 PM 11/29/2019 5:56 PM This code status was determined by: Patient Full Code 07/04/2019 6:07 PM 07/05/2019 12:00 AM This code status was determined by: Patient Full Code 04/29/2019 1:33 AM 05/01/2019 4:24 PM This code status was determined by: Patient Full Code 02/13/2019 4:03 PM 02/22/2019 12:00 AM This code status was determined by: Patient Name Relationship Healthcare Agent Relationship Co mmunication Louis Altaf Spouse [facility] [phone] Agent (Mobile)
--- OUTSIDE RECORDS SUMMARY | 2021-01-02 00:22 | XMS REPORT | Continuity of Care Document ---
:1950 Author Organization [facility] t Address [address] [place] [address] Care Team Providers Name Role Phone Tyrell Pierre Primary Care Physician Osmel ASTUDILLO, R Attending Clinician Unavailable Keena Montero MD Attending Clinician KEENA MONTERO Attending Clinician Unavailable Jeevan Tony Attending Clinician Unavailable Brandin COHEN Attending Clinician Unavailable Adan Attending Clinician Unavailable Mic Burgos MD Attending Clinician Adan ASTUDILLO Attending Clinician Unavailable Clemente Attending Clinician Unavailable Ashley Pino MD Attending Clinician Emmanuelle PINO Attending Clinician Unavailable Juanito ASTUDILLO Attending Clinician Unavailable Alex MILES Attending Clinician Unavailable Bradly HERNANDEZ Attending Clinician BRADLY Attending Clinician Unavailable Dusty Pino MD Attending Clinician Luba HERNANDEZ MPH, Magnus Attending Clinician [phone] MAGNUS VERDUZCO Attending Clinician Unavailable Zoltan HERNANDEZ Attending Clinician Unavailable Tico ASTUDILLO K Attending Clinician Unavailable Hilton Celaya MD Attending Clinician Rainer ASTUDILLO Attending Clinician Unavailable BRANDIN ELIAS Attending Clinician Unavailable TYRELL PIERRE Attending Clinician Unavailable Tracy MCDONNELL Attending Clinician Unavailable BRANDIN DUPREE Attending Clinician Unavailable CATHY Attending Clinician Unavailable HERBERT DYSON Attending Clinician Unavailable Tracy LEMUS Attending Clinician Unavailable FALGUNI GOLDEN Attending Clinician Unavailable TAL DELATORRE Attending Clinician Unavailable Gary INFANTE Attending Clinician Unavailable DUSTY PINO Attending Clinician Unavailable Julio BURGOS Attending Clinician Unavailable OLI BRYANT Attending Clinician Unavailable KEENA MONTERO Admitting Clinician Unavailable MAGNUS VERDUZCO Admitting Clinician Unavailable Tracy MCADAMS Admitting Clinician Unavailable SHONA AGUILAR Admitting Clinician Unavailable Tracy MCDONNELL Admitting Clinician Unavailable KODY RAI Admitting Clinician Unavailable NEW KELSEY Admitting Clinician Unavailable Gary INFANTE Admitting Clinician Unavailable Payers Payer Name Policy Type Policy Effective Date Expiration Date Sour ce Number CARE IMPROVEMENT [id number] [address] [facility] MEDIC[facility] MGD 00:00[facility] [id number]-Present [employer] [id number] [facility] NETWK - MEDICARE 00:00:00 - Medica l MGD CAREOPTUM [facility] [id number]-PresentTrans plants [facility] Problems Condition Condition Condition Status Onset Resolution Last Treating Co mments Source Name Details Category Date Date Treatment Clinician Date Abdominal Abdominal Disease Active [facility] pain[facility] pain, 1-15 [facility] - unspecifie unspecifie 00:00: Me dical d d 00 Center abdominal abdominal location location Anasarca Anasarca Disease Active [facility] 00[facility]: Medical 00 Center Acute Acute Disease Active Last [facility] abdominal abdominal 6-18 Ass[facility]men Arabella hobbses - pain pain 00:00: t & Plan: Medical 00 Her Center abdominal pain is likely due to combinati on of hernia and constipat ion. We advised her to use a trus for support of herniated area on her abdomen and increase her fluid consumpti on and use OTC stool softeners as needed. H/O H/O Disease Active Last [facility] umbilical umbilical 5-30 [facility] - hernia hernia 00:00: t & Plan: Medical repair repair 00 The Center umbilical hernia repaired area on her abdomen is healing well with wound edges well approxima kianna. Inguinal Inguinal Disease Active [facility] hernia hernia 4-22 [facility] - 00:00: t & Plan: Medical 00 Surgery Center is not recommend ed at this time to due to risks associate d to cirrhosis . We encourage d her to use trus for support. Pre-transp Pre-transp Disease Active 2017-[address] lant lant 1-26 Assessyonatan Vidal - evaluation evaluation 00:00: t & Plan: Medical for for 00 Seen by Center chronic chronic cardiolog liver liver y and disease disease cleared, needs f/u for lung lesion Elevated Elevated Disease Active 2017-11 [facility] random 0-25 [facility] - blood blood 00:00: Medical glucose glucose 00 Center level level Portal Portal Disease Active 2017-[address] [facility] vein vein 0-25 [facility] - thrombosis thrombosis 00:00: Me dical 00 Center History of History of Disease Active 2017-[address] pleural pleural 0-25 [facility] - effusion effusion 00:00: Medica l 00 Center Iron Iron Disease Active 2016-[address] [facility] [facility] deficiency deficiency 1-08 [facility] - anemia anemia 00:00: Medical 00 Center Pulmonary Pulmonary Disease Active 2016-[address] nodule nodule 0-19 [facility] - 00:00: t & Plan: Medical 00 3mm Center pulmonary nodule. Requires follow up with pulmonolo gist prior to surgery. Gastrointe Gastrointe Disease Active 2016-[address] stinal stinal 0-18 [facility] - hemorrhage hemorrhage 00:00: Me dical with with 00 Center melena melena Altered Altered Disease Active [facility] mental mental 2-10 [facility] - status status 00:00: Medical 00 Center Seizure Seizure Disease Active [facility] 2-10 [facility] - 00:00: Medical 00 Center Other Other Disease Active 2013-[address] [facility] cirrhosis cirrhosis 2-08 Assessmen Arabella carlson - of liver of liver 00:00: t & Plan: Med ical 00 Diagnosis Center based on the constella tion of clinical findings, laborator y parameter s and imaging. Etiology is most likely due to VASQUEZ. Her condition has decompens ated with features of portal hypertens ion. MELD Na is 9 based on labs from 08/19/19. Portal Portal Disease Active 2013-[address] hypertensi hypertensi 2-08 Assessmen Let[facility]kes - on on 00:00: t & Plan: Medical 00 Portal Center hypertens ion with evidence by ascites, jaundice, varices, and hepatic encephalo felipa. Esophageal Esophageal Disease Active 2013-[address] varices varices 2-08 [facility] - 00:00: t & Plan: Medical 00 Because Center of the risk for upper GI bleeding, all patients with portal hypertens ion should be screened for gastroeso pahgeal varices and/or portal hypertens memo gastropat hy. If varices and gastropat hy are absent, screening should be repeated in 24 months. If varices and/or portal hypertens memo gastropat hy are present, recommend ations for observati on versus therapy with non-cardi oselectiv e beta blockers and/or variceal band ligation should be based on the size of the varices and risk for hemorrhag e. Screening Screening Disease Active 2013-11 [facility] for cancer for cancer 12-20 [facility] - 00:00: t & Plan: Medical 00 Patients Center with cirrhosis , regardles s of etiology, have a markedly increased risk of developin g hepatocel lular carcinoma (HCC). We recommend HCC surveilla nce every 6 months by imaging and evaluatio n of serum AFP. -Will get MRI in future after reviewing US Diabetes Diabetes Disease Active 2013-11 [facility] t & Plan: Medical 00 Diabetes Center control per primary care. Metabolic Metabolic Disease Active 2013-11 [facility] syndrome syndrome 12-20 [facility] es - 00:00: t & Plan: Medical 00 Metabolic Center Syndrome is a risk factor for the developme nt of NAFLD and HCC. The patient exhibits features of metabolic syndrome including truncal obesity (Body mass index is 27.14 kg/(m^2). ), hypertens ion, insulin resistanc e, and hyperlipi demia (on meds / triglycer emy >150 / HDL <40). We recommend the patient adhere to a low carbohydr ate diet and engage in regular physical activity as tolerated . Abnormal Abnormal Disease Active 2013-11 [facility] liver liver 12-20 [facility] - enzymes enzymes 00:00: t & Plan: Medic al 00 The Center patient's liver test abnormali ties are likely related to NAFLD/ALESSANDRO H. However, we also ordered comprehen sive testing for metabolic , viral, genetic, and autoimmun e liver diseases to detect alternati ve etiologie s and all comorbid condition s affecting hepatic function. Ascites Ascites Disease Active 2013-[address] [facility] [address] 12[facility] t & Plan: Medical 00 [facility] Center developed 07/2014, requiring no paracente sis. Exam today revealed no ascites. Currently taking lasix 20 mg and spironola ctone 100 mg for diuresis. Recommen d the patient follow a diet of less than 2,000mg sodium daily. Non-alcoho Non-alcoho Disease Active 2013-[address] lic fatty lic fatty 12-[facility] liver 00:00: t & Plan: Medical disease disease 00 Metabolic Cente r Syndrome is a risk factor for the developme nt of NAFLD . She has negative work up for other etiologie s as above. Allergies, Adverse Reactions, Alerts This patient has no known allergies or adverse reactions. Family History Family Member Diagnosis Comments Start Date Stop Date Source Natural brother Diabetes [facility] Natural mother Diabetes [facility] Natural mother Hypertension [facility] Natural sister Diabetes [facility] Natural sister Thyroid disease [facility] Social History Social Habit Start Date Stop Date Quantity Comments Source Sex Assigned At [facility] Tobacco use and 2020-12-16 2020-12-16 Never used [facility] exposure 00:00:00 00:00:00 [facility] Alcohol intake 2020-12-16 2020-12-16 Current [facility] 00:00:00 00:00:00 non-drinker of [facility] Ce nter alcohol (finding) Smoking Status Start Date Stop Date Source Never smoker [facility] Medications Ordered Filled Start Stop Current Ordering Indication Dosage Frequency Signature Comments Components Source Medication Medication Date Date Medication? Clinician (SIG) Name Name traMADol Yes 50mg Take [address] [facility] (ULTRAM) 50 2-04 by mouth Luke s - mg tablet 16:37: every 8 Medic al 29 (eight) Center hours as needed for Pain . metoprolol Yes 50mg QD Take [address] (TOPROL-XL) 2-04 by mouth Luke s - 50 MG 24 hr 16:37: daily. Medi anuja tablet 29 Center insulin NPH Yes 40U QD [address] hum/reg 2-04 daily . [facility] - insulin hm 16:37: Medical (HUMULIN 29 Center 70/30 U-100 INSULIN SUBQ) traZODone Yes 50mg Take [address] (DESYREL) 2-04 by mouth [facility] - 50 MG 16:37: every Medical tablet 29 night as Center needed for Sleep. ondansetron Yes 4mg Take [address] (ZOFRAN) 4 2-04 by mouth 3 [facility] - MG tablet 16:37: (three) Medic al 29 times Center daily as needed for Nausea. insulin Yes QD daily. [facility] syringe-nee 9-11 [facility] - dle U-100 1 00:00: Medica l mL 31 gauge 00 [place] x 16 Syrg OneTouch Yes [facility] Ultra Blue 9-09 [facility] - Test Strip 00:00: Medical Strp 00 Center furosemide Yes Other 10mg QD Take 0.[address] (LASIX) 20 5-19 ascites tablets [facility] - MG tablet 00:00: (10 mg Medica l 00 total) by Center mouth daily. spironolact Yes Decompensat 25mg QD Take [address] [facility] one 5-05 ed hepatic tablet (25 [facility] - (ALDACTONE) 00:00: cirrhosis mg total) Medical 25 MG 00 (HCC) by mouth Center tablet daily. spironolact 2019- No 50mg QD Take [address] one 3-31 05-05 by mouth [facility] - (ALDACTONE) 00:00: 00:00 daily. Med ical 50 MG 00 :00 Center tablet lidocaine-m Yes 1{patch QD Apply [address] [facility] [facility] enthol 4-1 1-18 } patch [facility] - % PtMd 00:00: topically Medica l 00 daily. Center ferrous No 325mg Take [address] [facility] sulfate 325 1-17 01-16 tablet [facility] - (65 FE) MG 00:00: 23:59 (325 mg Med ical tablet 00 :00 total) by Center mouth daily with breakfast. pantoprazol 2018-11 Yes 40{tbl} QD Take [address] [facility] e 0-04 tablets by [facility] - (PROTONIX) 00:00: mouth Medica l 40 MG 00 daily. Center tablet levothyroxi Yes 75ug QD Take [address] ne 8-30 mcg by [facility] - (SYNTHROID, 00:00: mouth Medic al LEVOTHROID) 00 daily . Cente r 75 MCG tablet rifAXIMin 2019-0 Yes 550mg Q.5D Take 1 [facility] 550 mg Tab 7-03 tablet [facility] - 00:00: (550 mg Medical 00 total) by Center mouth 2 (two) times daily. Immunizations Ordered Immunization Filled Immunization Date Status Commen ts Source Name Name INFLUENZA TRIVALENT 2019-11-27 [facility] PF IM 00:00:00 [facility] Vital Signs Vital Name Observation Time Observation Value Comments Source Systolic blood 2020-12-16 09:54:00 131 mm[Hg] [facility] Diastolic blood 2020-12-16 09:54:00 68 mm[Hg] [facility] S t [facility] Heart rate 2020-12-16 09:54:00 65 /min [facility] Body temperature 2020-12-16 09:54:00 36.28 [facility] Respiratory rate 2020-12-16 09:54:00 18 /min [facility] Oxygen saturation in 2020-12-16 09:54:00 98 /min [facility] Arterial blood by Medical Ce nter Pulse oximetry Body weight 2020-12-16 07:57:00 58.06 kg [facility] BMI 2020-12-16 07:57:00 24.19 kg/m2 [facility] Body height 2020-11-30 08:26:00 154.9 cm [facility] Procedures Procedure Date / Time Performed Performing Clinician [facility] e MR ABDOMEN WITH & WITHOUT 2020-12-16 12:12:00 Russ Burgos [facility] IV CONTRAST [facility] BODY FLUID CELL COUNT 2020-12-16 09:50:00 Yue Montero [facility] - WITH DIFFERENTIAL [facility] ALPHA FETOPROTEIN (AFP), 2020-12-16 06:47:00 Yue Montero [facility] TUMOR MARKER [facility] BILIRUBIN, DIRECT 2020-12-16 06:47:00 Yue Montero [facility] S [facility] CBC W/PLT COUNT & AUTO 2020-12-16 06:47:[address] [facility] COMPREHENSIVE METABOLIC 2020-12-16 06:47:[address] [facility] PROTHROMBIN TIME/INR 2020-12-16 06:47:00 Yue Montero [facility] XR CHEST 1 VIEW 2020-11-11 17:39:00 Shasha Hall [facility] s - PORTABLE/BEDSIDE [facility] XR CHEST 1 VIEW 2020-11-11 16:55:00 Shasha Hall [facility] s - PORTABLE/BEDSIDE [facility] BODY FLUID CELL COUNT 2020-11-11 16:45:00 [facility] WITH DIFFERENTIAL [facility] THORACENTESIS 2020-11-11 16:40:00 Cholankeriarabella [facility] US PARACENTESIS 2020-10-26 16:30:00 Yue Montero [facility] BODY FLUID CELL COUNT 2020-10-26 16:20:[address] [facility] WITH DIFFERENTIAL [facility] CBC W/PLT COUNT & AUTO 2020-10-26 14:01:00 Cindy Payton [facility] PROTHROMBIN TIME/INR 2020-10-26 14:01:00 Cindy Payton [facility] APTT 2020-10-26 14:01:00 [facility] PROTHROMBIN TIME/INR 2020-09-21 10:27:00 Yue Montero [facility] COMPREHENSIVE METABOLIC 2020-09-21 10:27:[address] [facility] CBC W/PLT COUNT & AUTO 2020-09-21 10:27:[address] [facility] BILIRUBIN, DIRECT 2020-09-21 10:27:00 Yue Montero [facility] ALPHA FETOPROTEIN (AFP), 2020-09-21 10:27:00 Yue Montero [facility] TUMOR MARKER [facility] PLATELET ESTIMATION 2020-09-21 10:27:00 Yue Montero [facility] XR CHEST 1 VIEW 2020-08-31 11:21:00 Shasha Hall [facility] s - PORTABLE/BEDSIDE [facility] US THORACENTESIS 2020-08-31 11:20:00 Yue Montero [facility] US PARACENTESIS 2020-08-31 11:20:00 Yue Montero [facility] BODY FLUID CELL COUNT 2020-08-31 11:10:00 Yeu Montero [facility] - WITH DIFFERENTIAL [facility] BODY FLUID CELL COUNT 2020-08-31 10:22:00 Yue Montero [facility] - WITH DIFFERENTIAL [facility] MR ABDOMEN WITH & WITHOUT 2020-08-24 11:50:00 Yue Montero [facility] IV CONTRAST [facility] ALPHA FETOPROTEIN (AFP), 2020-08-24 09:54:00 Yue Montero [facility] TUMOR MARKER [facility] BILIRUBIN, DIRECT 2020-08-24 09:54:00 Yue Montero [facility] CBC W/PLT COUNT & AUTO 2020-08-24 09:54:00 Yue Montero [facility] - DIFFERENTIAL [facility] COMPREHENSIVE METABOLIC 2020-08-24 09:54:[address] [facility] PROTHROMBIN TIME/INR 2020-08-24 09:54:00 Yue Montero [facility] BODY FLUID CELL COUNT 2020-08-23 09:54:00 Yue Montero [facility] - WITH DIFFERENTIAL [facility] US PARACENTESIS 2020-08-23 09:50:00 Yue Montero [facility] CBC W/PLT COUNT & AUTO 2020-08-23 08:05:[address] [facility] PROTHROMBIN TIME/INR 2020-08-23 08:04:00 Yue Montero [facility] BODY FLUID CELL COUNT 2020-07-07 09:49:00 Yue Montero [facility] - WITH DIFFERENTIAL [facility] US PARACENTESIS 2020-07-07 09:38:00 Yue Montero [facility] PROTHROMBIN TIME/INR 2020-07-01 10:30:00 Yue Montero [facility] COMPREHENSIVE METABOLIC 2020-07-01 10:30:[address] [facility] CBC W/PLT COUNT & AUTO 2020-07-01 10:30:[address] [facility] BILIRUBIN, DIRECT 2020-07-01 10:30:00 Yue Montero [facility] ALPHA FETOPROTEIN (AFP), 2020-07-01 10:30:00 Yue Montero [facility] TUMOR MARKER [facility] XR CHEST 1 VIEW 2020-04-22 11:14:00 [facility] PORTABLE/BEDSIDE Medical Center XR CHEST 1 VIEW 2020-04-22 09:38:00 Cindy Payton [facility] PORTABLE/BEDSIDE Medical Center US THORACENTESIS 2020-04-22 09:09:00 Yue Montero [facility] US ABDOMEN LIMITED 2020-04-22 09:09:00 Yue Montero [facility] BODY FLUID CELL COUNT 2020-04-22 08:53:[address] [facility] WITH DIFFERENTIAL [facility] BILIRUBIN, DIRECT 2020-04-06 11:09:00 Yue Montero [facility] CBC W/PLT COUNT & AUTO 2020-04-06 11:09:[address] [facility] COMPREHENSIVE METABOLIC 2020-04-06 11:09:[address] [facility] PROTHROMBIN TIME/INR 2020-04-06 11:09:00 Yue Montero I [facility] XR CHEST 1 VIEW 2020-04-01 16:51:00 Shasha Hall AMANDA [facility] s - PORTABLE/BEDSIDE [facility] US THORACENTESIS 2020-04-01 16:41:[address] [facility] BODY FLUID CULTURE + GRAM 2020-04-01 16:40:[address] [facility] BODY FLUID CELL COUNT 2020-04-01 16:39:00 [facility]co [facility] DIFFERENTIAL [facility] CBC W/PLT COUNT & AUTO 2020-04-01 14:07:00 [facility] PROTHROMBIN TIME/INR 2020-04-01 14:07:00 Cindy Payton [facility] APTT 2020-04-01 14:07:[address] [facility] CT ABDOMEN WITH & WITHOUT 2020-03-23 11:32:00 Dorcas Verduzco [facility] - IV CONTRAST [facility] POCT-CREATININE 2020-03-23 11:18:00 Dorcas Verduzco [facility] - [facility] US ABDOMEN LIMITED 2020-01-17 07:29:00 Yue Montero [facility] PROTHROMBIN TIME/INR 2020-01-16 08:33:00 Gagandeep Celaya [facility] CBC W/PLT COUNT & AUTO 2020-01-16 08:33:00 Russ Burgos [facility] Plan of Care Planned Activity Planned Date Details Comments Source Future Scheduled 2020-11-[address] [facility] - Test 00:00:00 (12+) [code = Medical Center DEPRESSION SCREENING (12+)] Future Scheduled 2020-10-[address] [facility] - Test 00:00:00 malignant neoplasm of [facility] breast (procedure) [code = 739823755] Future Scheduled 2020-07-13 INFLUENZA VACCINE (#1) [facility] - Test 00:00:00 [code = INFLUENZA Medical Ce nter VACCINE (#1)] Future Scheduled 2020-05-[address] [facility] - Test 00:00:00 measurement [facility] Center (procedure) [code = 16633639] Future Scheduled 2017-11-[address] [facility] [facility] - Test 00:00:00 WELLNESS (YEAR 2 or Medical Center FIRST YEAR if no IPPE) [code = MEDICARE ANNUAL WELLNESS (YEAR 2 or FIRST YEAR if no IPPE)] Future Scheduled 2013 PNEUMOCOCCAL 65+ YRS [facility] - Test 00:00:00 (1 of 1 - Medical Center [id number] PCV13) [code = PNEUMOCOCCAL 65+ YRS (1 of 1 - [id number] PCV13)] Future Scheduled 1998 SHINGLES VACCINES ([address] [facility] - Test 00:00:00 of 2) [code = SHINGLES [facility] VACCINES (1 of 2)] Future Scheduled 1967 DTAP/TDAP/TD VACCINES [facility] - Test 00:00:00 (1 - Tdap) [code = Medical C enter DTAP/TDAP/TD VACCINES (1 - Tdap)] Future Scheduled 1958 DIABETIC EYE EXAM [facility] - Test 00:00:00 [code = DIABETIC EYE Medical Center EXAM] Future Scheduled [address] [facility] - Test 00:00:00 examination Medical Center (regime/therapy) [code = 763904854] Future Scheduled 1958 Urine screening for [facility] - Test 00:00:00 protein (procedure) Medical Center [code = 687035430] Future Scheduled [address] [facility] - Test 00:00:00 malignant neoplasm of [facility] colon (procedure) [code = 387694386] Results Test Description Test Time Test Comments Results Result Comments Source Body fluid cell count with differential 2020-12-16 14:20:00 Test Item Value Reference Range Interpretation Comme nts Appearance (test code = Clear Clear 9335-1) Color (test code = 6824-7) Yellow Colorless, Straw A RBCs (test code = 62251-3) 149 See_Comment H [Automated message] The system which ge nerated this result tra nsmitted reference range : <=1 /cu mm. The referen ce range was not used to interpret this result as normal/abnormal . Adjusted WBC Count (test 30 See_Comment H [A utomated message] The code = 54527-5) system which generated this result tra nsmitted reference range : <=5 /cu mm. The referen ce range was not used to interpret this result as normal/abnormal . Lining Cells (test code = 1 See_Comment [ Automated message] The 70332-6) system which ge nerated this result tra nsmitted reference range : <=1 /cu mm. The referen ce range was not used to interpret this result as normal/abnormal . % Segs (test code = 55331-1) 13 % % Lymphs (test code = 47 % 18369-1) % Monos (test code = 39 % 13214-4) % Eos (test code = 08848-8) 0 % % Baso (test code = 32754-6) 1 % Container Body Fluid (test Sterile Vial code = 2873) Lab Interpretation (test Abnormal code = 76066-1) [facility] WITH [id number] 14:20:00 Test Item Value Reference Range Interpretation Comments APPEARANCE FLUID (BEAKER) (test Clear Clear code = 510) COLOR FLUID (BEAKER) (test code Yellow Colorless, Straw A = 511) RBC FLUID (BEAKER) (test code = 149 /cu mm <=1 H 513) ADJUSTED WBC FLUID (BEAKER) 30 /cu mm <=5 H (test code = 1691) LINING CELLS (BEAKER) (test 1 /cu mm <=1 code = 1590) NEUTROPHILS FLUID (BEAKER) 13 % (test code = 1656) LYMPHS FLUID (BEAKER) (test 47 % code = 488) MONO/MACROPHAGE FLUID (BEAKER) 39 % (test code = 489) EOSINOPHILS FLUID (BEAKER) 0 % (test code = 491) BASO FLUID (BEAKER) (test code 1 % = 492) CONTAINER BODY FLUID (BEAKER) Sterile Vial (test code = 2873) MR, ABDOMEN, [id number] 14:18:00Referring: Dr. Mohsen GastelumUnlisted Reason for Exam - Click Yes and Enter Reason Below->YesUnlisted Reason for Exam- >main portal vein and SMV non occlusive thrombosisAnesthesia:->NoneDeos the patient have an implanted electronic device?->No [facility]ame: SMILEYSAMIR SMILEY : 1950 Sex: FAddendum BeginsREPORT STATUS:A IMPRESSION should also include: 0.5 cm cystic lesion in the pancreatic body. Signed: Jr Bolanos MDReport Verified Date/Time: 12/16/2020 14:18:54 Addendum EndsFINAL REPORT TECHNIQUE: MRI of the abdomen WITHOUT and WITH intravenous contrast. INDICATION: 70-year-old woman with cirrhosis and portal vein thrombosis. COMPARISON: Abdomen MRI 08/24/2020. FINDINGS:Suboptimal evaluation due to motion artifact on postcontrast sequences. LOWER THORAX: Persistent large right pleural effusion with relaxation atelectasis of the adjacent right lung. LIVER: Cirrhotic morphology of the liver. No significant change in size of the 0.9 cm arterially enhancing observation in the periphery of segment V with washout and pseudocapsule (LI-RADS 4, axial postcontrast arterial series image 58). No significant change in the 2.2 x 1.8 cm cyst in segment VIII (LI-RADS 1). BILIARY: Prior cholecystectomy. Common duct remains at the upper limit of normal in caliber without definite filling defect. Unchanged. No significant change in nonenhancing linear T2 hyperintensities adjacent to the cyst in hepatic segment VIII, which may represent mildly prominent bile ducts or small thrombosed branches of the right portal vein. SPLEEN: Spleen is prominent and measures 15.8 cm in the craniocaudal dimension.PANCREAS: Pancreatic tail is not clearly visualized due to susceptibility artifact in the adjacent stomach. 0.5 cm unilocular cyst in the pancreatic body. No solid mass or ductal dilatation in the visualized pancreas. ADRENALS: No adrenal nodule.KIDNEYS/URETERS: No hydronephrosis or mass. Subcentimeter cyst in the right lower pole. PERITON EUM/RETROPERITONEUM: Persistent moderate volume ascites.LYMPH NODES: No lymphadenopathy.VESSELS: Unchanged nonocclusive thrombus in the right portal vein and right hepatic vein. Unchanged to slightly decreased nonocclusive thrombus in the main portal and superior mesenteric veins. Main portal vein is p rominent and measures 1.5 cm in diameter. Recanalized umbilical vein. Esophageal varices. Conventional hepatic arterial anatomy. Abdominal aorta is normal in caliber. GI TRACT: Unchanged susceptibilityartifact in the region of the stomach. No or distention or bowel wall thickening. BONES AND SOFT TISSUES: Unremarkable. IMPRESSION:Suboptimal evaluation due to motion and susceptibility artifacts. Cirrhosis with portal hypertension and moderate volume ascites. No significant change in size of the 0.9cm arterially enhancing observation in segment V, which is suspicious for hepatocellular carcinoma (LI-RADS 4). Unchanged nonocclusive thrombus in the right portal and right hepatic veins. Unchanged toslightly decreased nonocclusive thrombus in the main portal and superior mesenteric veins. Unchangedlinear structures adjacent to the cyst in hepatic segment VIII may represent mildly prominent bile ducts or small thrombosed branches of the right portal vein. Large right pleural effusion. Signed: Jr Bolanos MDReport Verified Date/Time: 12/16/2020 12:58:09 MR abdomen with/without IV [id number] 12:58:00Interface, External Ris In - 12/16/2020 2:21 PM CSTAddendum BeginsREPORT STATUS:A IMPRESSION should also include: 0.5 cm cystic lesion in the pancreatic body. Signed: Jr Bolanos MDReport Verified Date/Time: 12/16/2020 14:18:54 Addendum EndsFINAL REPORT TECHNIQUE: MRI of the abdomen WITHOUT and WITH intravenous contrast. INDICATION: 70-year-old woman with cirrhosis and portal vein thrombosis. COMPARISON: Abdomen MRI 08/24/2020. FINDINGS:Suboptimalevaluation due to motion artifact on postcontrast sequences. LOWER THORAX: Persistent large right pleural effusion with relaxation atelectasis of the adjacent right lung. LIVER: Cirrhotic morphology ofthe liver. No significant change in size of the 0.9 cm arterially enhancing observation in the periphery of segment V with washout and pseudocapsule (LI-RADS 4, axial postcontrast arterial series image58). No significant change in the 2.2 x 1.8 cm cyst in segment VIII (LI-RADS 1). BILIARY: Prior cholecystectomy. Common duct remains at the upper limit of normal in caliber without definite filling defect. Unchanged. No significant change in nonenhancing linear T2 hyperintensities adjacent to the cystin hepatic segment VIII, which may represent mildly prominent bile ducts or small thrombosed branches of the right portal vein. SPLEEN: Spleen is prominent and measures 15.8 cm in the craniocaudal dimen mica.PANCREAS: Pancreatic tail is not clearly visualized due to susceptibility artifact in the adjacent stomach. 0.5 cm unilocular cyst in the pancreatic body. No solid mass or ductal dilatation in thevisualized pancreas. ADRENALS: No adrenal nodule.KIDNEYS/URETERS: No hydronephrosis or mass. Subcentimeter cyst in the right lower pole. PERITONEUM/RETROPERITONEUM: Persistent moderate volume ascites.LYMPH NODES: No lymphadenopathy.VESSELS: Unchanged nonocclusive thrombus in the right portal vein and right hepatic vein. Unchanged to slightly decreased nonocclusive thrombus in the main portal and superior mesenteric veins. Main portal vein is prominent and measures 1.5 cm in diameter. Recanalized umbilical vein. Esophageal varices. Conventional hepatic arterial anatomy. Abdominal aorta is normal in caliber. GI TRACT: Unchanged susceptibility artifact in the region of the stomach. No or distention or bowel wall thickening. BONES AND SOFT TISSUES: Unremarkable. IMPRESSION:Suboptimal evaluation due to motion and susceptibility artifacts. Cirrhosis with portal hypertension and moderate volume ascites. No significant change in size of the 0.9 cm arterially enhancing observation in segment V, which is suspicious for hepatocellular carcinoma (LI- RADS 4). Unchanged nonocclusive thrombus in the right portal and right hepatic veins. Unchanged to slightly decreased nonocclusive thrombus in the main portal and superior mesenteric veins. Unchanged linear structures adjacent to the cyst in hepatic segmentVIII may represent mildly prominent bile ducts or small thrombosed branches of the right portal vein. Large right pleural effusion. Signed: Jr Bolanos MDReport Verified Date/Time: 12/16/2020 12:58:09 [facility] HospitalAlpha fetoprotein (AFP), tumor [id number] 07:57:00 Test Item Value Reference Range Interpretation Comments Alpha-Fetoprotein (test 2.3 ng/mL <10.0 code = 1834-1) FAUSTO (test code = FAUSTO) Polymerization Helper ID - ADRIA M Lab Interpretation (test Normal code = 56670-2) [facility] (AFP), TUMOR [id number] 07:57:00 Test Item Value Reference Range Interpretation Comments ALPHA-FETOPROTEIN (BEAKER) (test 2.3 ng/mL <10.0 code = 1094) Polymerization Helper ID - ADRIA MComprehensive metabolic [id number] 07:37:00 Test Item Value Reference Range Interpretation Comments Protein, Total (test 7.7 See_Comment [Autom ated code = 2885-2) message] The system which generated this result transmit kianna reference range : 6.0 - 8.3 gm/dL . The reference range was not u sed to interpret th is result as normal/abnormal . Albumin (test code = 3.3 g/dL 3.5-5 L 51316-9) Alkaline Phosphatase 89 U/L 40-150 (test code = 6768-6) Total Bilirubin (test 0.9 mg/dL 0.2-1.2 code = 1975-2) Sodium (test code = 135 meq/L 136-145 L 2951-2) Potassium (test code 4.5 meq/L 3.5-5.1 = 2823-3) Chloride (test code = 104 meq/L 98-107 2074-0) CO2 (test code = 28 meq/L 22-29 2028-07) BUN (test code = 13 mg/dL 7-21 3094-0) Creatinine (test code 1.09 mg/dL 0.57-1.25 = 2160-0) Glucose (test code = 147 mg/dL 70-105 H 2345-7) Calcium (test code = 9.1 mg/dL 8.4-10.2 08128-5) AST (test code = 28 U/L 5-34 1920-8) ALT (test code = 14 U/L 6-55 1742-6) EGFR (test code = 49 mL/min/1.73 [place] [address]-1) NOT ACCURATE CREATININE CLEARANCE IN PREDICTING GLOMERULAR FILTRATION RATE . ESTIMATED GFR I S NOT APPLICABLE FOR DIALYSIS PATIEN TS. FAUSTO (test code = FAUSTO) Polymerization Helper ID - ADRIA M Lab Interpretation Abnormal (test code = 12850-6) [facility] HospitalBilirubin, [id number] 07:37:00 Test Item Value Reference Range Interpretation Comments Bilirubin, Direct (test 0.5 mg/dL 0.1-0.5 code = 1968-05) FAUSTO (test code = FAUSTO) Polymerization Helper ID - ADRIA M Lab Interpretation (test Normal code = 66402-6) [facility] HospitalCOMPREHENSIVE METABOLIC [id number] 07:37:00 Test Item Value Reference Range Interpretation Comments TOTAL PROTEIN 7.7 gm/dL 6.0-8.3 (BEAKER) (test code = 770) ALBUMIN (BEAKER) 3.3 g/dL 3.5-5.0 L (test code = 1145) ALKALINE PHOSPHATASE 89 U/L 40-150 (BEAKER) (test code = 346) BILIRUBIN TOTAL 0.9 mg/dL 0.2-1.2 (BEAKER) (test code = 377) SODIUM (BEAKER) (test 135 meq/L 136-145 L code = 381) POTASSIUM (BEAKER) 4.5 meq/L 3.5-5.1 (test code = 379) CHLORIDE (BEAKER) 104 meq/L 98-107 (test code = 382) CO2 (BEAKER) (test 28 meq/L 22-29 code = 355) BLOOD UREA NITROGEN 13 mg/dL 7-21 (BEAKER) (test code = 354) CREATININE (BEAKER) 1.09 mg/dL 0.57-1.25 (test code = 358) GLUCOSE RANDOM 147 mg/dL 70-105 H (BEAKER) (test code = 652) CALCIUM (BEAKER) 9.1 mg/dL 8.4-10.2 (test code = 697) AST (SGOT) (BEAKER) 28 U/L 5-34 (test code = 353) ALT (SGPT) (BEAKER) 14 U/L 6-55 (test code = 347) EGFR (BEAKER) (test 49 mL/min/1.73 ESTIMA KIANNA GFR IS code = 1092) sq m NOT ACCURATE CREATININE CLEARANCE IN PREDICTING GLOMERULAR FILTRATION RATE . ESTIMATED GFR I S NOT APPLICABLE FOR DIALYSIS PATIEN TS. Polymerization Helper ID - ADRIA MBILIRUBIN, [id number] 07:37:00 Test Item Value Reference Range Interpretation Comments BILIRUBIN DIRECT (BEGAVINO) (test 0.5 mg/dL 0.1-0.5 code = 706) Polymerization Helper ID - ADRIA MCBC with platelet count + automated [id number] 07:18:00 Test Item Value Reference Range Interpretation Comments WBC (test code = 6690-2) 3.2 See_Comment L [A utomated message] The system mNectar generated this result transmitted ref erence range: 3.5 - 10 .5 K/L. The refe rence range was not u sed to interpret this result as normal/abnor mal. RBC (test code = 789-8) 3.22 See_Comment L [Au tomated message] The system mNectar generated this result transmitted ref erence range: 3.93 - 5 .22 M/L. The refe rence range was not u sed to interpret this result as normal/abnor mal. MCHC (test code = 786-4) 31.1 See_Comment L [A utomated message] The system mNectar generated this result transmitted ref erence range: 32.2 - 3 5.5 GM/DL. The refe rence range was not u sed to interpret this result as normal/abnor mal. Hematocrit (test code = 28.6 % 34.1-44.9 L 4544-3) MCV (test code = 787-2) 88.8 fL 79.4-94.8 MCH (test code = 785-6) 27.6 pg 25.6-32.2 RDW (test code = 788-0) 16.1 % 11.7-14.4 H Platelets (test code = 83 See_Comment L [Aut omated message] 777-3) The system mNectar generated this result transmitted ref erence range: 150 - 45 0 K/CU MM. The referen ce range was not u sed to interpret this result as normal/abnor mal. MPV (test code = 10.0 fL 9.4-12.3 84358-8) nRBC (test code = 413) 0 See_Comment [Aut omated message] The system mNectar generated this result transmitted ref erence range: 0 - 0 /1 00 WBC. The refere nce range was not u sed to interpret this result as normal/abnor mal. % Neutros (test code = 83 % 429) % Lymphs (test code = 8 % 430) % Monos (test code = 7 % 431) % Eos (test code = 432) 1 % % Baso (test code = 437) 1 % # Neutros (test code = 2.67 See_Comment [Aut omated message] 670) The system mNectar generated this result transmitted ref erence range: 1.56 - 6 .13 K/L. The refe rence range was not u sed to interpret this result as normal/abnor mal. # Lymphs (test code = 0.26 See_Comment L [Auto mated message] 414) The system mNectar generated this result transmitted ref erence range: 1.18 - 3 .74 K/L. The refe rence range was not u sed to interpret this result as normal/abnor mal. # Monos (test code = 0.22 See_Comment L [Autom ated message] 415) The system mNectar generated this result transmitted ref erence range: 0.24 - 0 .36 K/L. The refe rence range was not u sed to interpret this result as normal/abnor mal. # Eos (test code = 416) 0.04 See_Comment [Au tomated message] The system mNectar generated this result transmitted ref erence range: 0.04 - 0 .36 K/L. The refe rence range was not u sed to interpret this result as normal/abnor mal. # Baso (test code = 417) 0.02 See_Comment [A utomated message] The system mNectar generated this result transmitted ref erence range: 0.01 - 0 .08 K/L. The refe rence range was not u sed to interpret this result as normal/abnor mal. Immature 0 % 0-1 Granulocytes-Relative (test code = 2801) Lab Interpretation (test Abnormal code = 54219-4) [facility] W/PLT COUNT & AUTO [id number] 07:18:00 Test Item Value Reference Range Interpretation Comments WHITE BLOOD CELL COUNT (BEAKER) 3.2 K/ L 3.5-10.5 L (test code = 775) RED BLOOD CELL COUNT (BEAKER) 3.22 M/ L 3.93-5.22 L (test code = 761) HEMOGLOBIN (BEAKER) (test code = 8.9 GM/DL 11.2-15.7 L 410) HEMATOCRIT (BEAKER) (test code = 28.6 % 34.1-44.9 L 411) MEAN CORPUSCULAR VOLUME (BEAKER) 88.8 fL 79.4-94.8 (test code = 753) MEAN CORPUSCULAR HEMOGLOBIN 27.6 pg 25.6-32.2 (BEAKER) (test code = 751) MEAN CORPUSCULAR HEMOGLOBIN CONC 31.1 GM/DL 32.2-35.5 L (BEAKER) (test code = 752) RED CELL DISTRIBUTION WIDTH 16.1 % 11.7-14.4 H (BEAKER) (test code = 412) PLATELET COUNT (BEAKER) (test code 83 K/CU MM 150-450 L = 756) MEAN PLATELET VOLUME (BEAKER) 10.0 fL 9.4-12.3 (test code = 754) NUCLEATED RED BLOOD CELLS (BEAKER) 0 /100 WBC 0-0 (test code = 413) NEUTROPHILS RELATIVE PERCENT 83 % (BEAKER) (test code = 429) LYMPHOCYTES RELATIVE PERCENT 8 % (BEAKER) (test code = 430) MONOCYTES RELATIVE PERCENT 7 % (BEAKER) (test code = 431) EOSINOPHILS RELATIVE PERCENT 1 % (BEAKER) (test code = 432) BASOPHILS RELATIVE PERCENT 1 % (BEAKER) (test code = 437) NEUTROPHILS ABSOLUTE COUNT 2.67 K/ L 1.56-6.13 (BEAKER) (test code = 670) LYMPHOCYTES ABSOLUTE COUNT 0.26 K/ L 1.18-3.74 L (BEAKER) (test code = 414) MONOCYTES ABSOLUTE COUNT (BEAKER) 0.22 K/ L 0.24-0.36 L (test code = 415) EOSINOPHILS ABSOLUTE COUNT 0.04 K/ L 0.04-0.36 (BEAKER) (test code = 416) BASOPHILS ABSOLUTE COUNT (BEAKER) 0.02 K/ L 0.01-0.08 (test code = 417) IMMATURE GRANULOCYTES-RELATIVE 0 % 0-1 PERCENT (BEAKER) (test code = 2801) Prothrombin time/[id number] 07:06:00 Test Item Value Reference Interpretation Comments Range Protime (test code = 17.8 See_Comment H [Autom ated 5902-2) message] The system which generated this result transmitted reference range : 11.9 - 14.2 seconds. The reference range was not used to interpret this result as normal/abnormal . INR (test code = 1.52 See_Comment [Automated 6301-6) message] The system which generated this result transmitted reference range : <=5.90. The reference range was not used to interpret this result as normal/abnormal . FAUSTO (test code = Effective 04/09/2019: FAUSTO) PT Reference Range ChangeNew: 11.9-14.2 Previous: 11.7-14.7 RECOMMENDED COUMADIN/WARFARIN INR THERAPY RANGESSTANDARD DOSE: 2.0-3.0 Includes: PROPHYLAXIS for venous thrombosis, systemic embolization; TREATMENT for venous thrombosis and/or pulmonary embolus.HIGH RISK: Target INR is 2.5-3.5 for patients wiht mechanical heart valves. Lab Interpretation Abnormal (test code = 81238-6) [facility] HospitalPROT[facility]OM[facility]/[id number] 07:06:00 Test Item Value Reference Range Interpretation Comments PROTIME (BEAKER) (test code = 17.8 seconds 11.9-14.2 H 759) INR (BEAKER) (test code = 370) 1.52 <=5.90 Effective 04/09/2019: PT Reference Range ChangeNew: 11.9-14.2 Previous: 11.7- 14.7RECOMMENDED COUMADIN/WARFARIN INR THERAPY RANGESSTANDARD DOSE: 2.0-3.0 Includes: PROPHYLAXIS for venous thrombosis, systemic embolization; TREATMENT for venous thrombosis and/or pulmonary embolus.HIGH RISK: Target INR is2.5-3.5 for patients wiht mechanical heart valves.U/S, [id number] 09:44:00 Referring: Dr. Mohsen Ingram pleural fluid for cell count and differential..Laterality?->RightLabs to be Ordered:->Other (please add comment)Reason for Exam:->Pleural effusion [facility] : 1950 Sex: FFINAL REPORT Exam: Ultrasound guided thoracentesis Clinical History: Right-sided Pleural Effusion Manager Laboratory: Shasha Hall PA-C Supervising Physician: Lobo Bauer MD Consent: Benefits and risks were explained to the patient who gave consent to the procedure. Complication: None Immediate Procedure: The patient was placed in sittingposition. The right posterior chest was prepped and draped in usual sterile fashion. 2% lidocaine was used as local anesthetic. Under ultrasound guidance, a thoracentesis catheter was inserted into the pleural cavity. Approximately 2000 cc of clear yellow pleural fluid was aspirated. The catheter was removed. The specimen was sent to the laboratory for further analysis. The patient tolerated the procedure well without any adverse reaction. A STAT chest x-ray was ordered. The patient left the department in stable condition. Impression: Ultrasound guided right-sided thoracentesis. Signed: Lobo Bauer MDReport Verified Date/Time: 11/15/2020 09:44:42 Reading Location: [place] [id number] Ultrasound Reading Room Ultrasound THORACENTESIS 2020-11-15 09:44:00Interface, External Ris In - 11/15/2020 9:46 AM CSTFINAL REPORT Exam: Ultrasound guided thoracentesis Clinical History: Right-sided Pleural Effusion Manager Laboratory: Shasha Hall PA-C Supervising Physician: Lobo Bauer MD Consent: Benefits and risks were explained to the patient who gave consent to the procedure. Complication: None Immediate Procedure: The patient was placed in sittingposition. The right posterior chest was prepped and draped in usual sterile fashion. 2% lidocaine was used as local anesthetic. Under ultrasound guidance, a thoracentesis catheter was inserted into the pleural cavity. Approximately 2000 cc of clear yellow pleural fluid was aspirated. The catheter was removed. The specimen was sent to the laboratory for further analysis. The patient tolerated the procedure well without any adverse reaction. A STAT chest x-ray was ordered. The patient left the department in stable condition. Impression: Ultrasound guided right- sided thoracentesis. Signed: Lobo Bauer MDReport Verified Date/Time: 11/15/2020 09:44:42 Reading Location: [place] [id number] Ultrasound Reading [facility] CenterB[facility] CE[facility] WITH [id number] 18:27:00 Test Item Value Reference Range Interpretation Comments APPEARANCE FLUID (BEAKER) Slightly Hazy Clear A (test code = 510) COLOR FLUID (BEAKER) (test Straw Colorless, Straw code = 511) RBC FLUID (BEAKER) (test code 390 /cu mm <=1 H = 513) ADJUSTED WBC FLUID (BEAKER) 126 /cu mm <=5 H (test code = 1691) LINING CELLS (BEAKER) (test 4 /cu mm <=1 H code = 1590) NEUTROPHILS FLUID (BEAKER) 14 % (test code = 1656) LYMPHS FLUID (BEAKER) (test 12 % code = 488) MONO/MACROPHAGE FLUID (BEAKER) 74 % (test code = 489) EOSINOPHILS FLUID (BEAKER) 0 % (test code = 491) BASO FLUID (BEAKER) (test code 0 % = 492) CONTAINER BODY FLUID (BEAKER) EDTA Tube (test code = 2873) RAD, CHEST, 1 VIEW, NON [id number] 18:05:00Referring: Dr. Mohsen Padron for exam:->follow up cxr post right thora skin fold vs. PTXSho uld this be performed at the bedside?->Yes [facility] : 1950 Sex: FFINAL REPORT TECHNIQUE: Frontal view of the chest. INDICATION: follow up cxr post right thora skin fold vs. PTX. COMPARISON: Chest radiographs dating back to 09/26/2017FINDINGS: LINES/TUBES: None. LUNGS: The previously seen possible right upper lung nodule has resolved. There is a linear opacity of the left upper chest which measures 0.4 cm. No consolidation or pulmonary edema. PLEURA: Small right pleural effusion. No definite pneumothorax is seen. However, there isstill a likely skinfold over the right upper chest. HEART AND MEDIASTINUM: The cardiac silhouette isnormal in size. SOFT TISSUES AND BONES: Biopsy clip over the stomach.. IMPRESSION: There is likely no pneumothorax. There is still a skinfold over the right upper chest. Small residual right pleural effusion. A linear opacity of the left upper chest measures 0.4 cm. A follow-up radiograph is recommended in one year to document stability. Signed: Jeb Lpoez MDReport Verified Date/Time: 11/11/2020 18:05:58 Reading Location: [facility] C013 Consult Reading Room XR chest 1 view portable / [id number] 18:05:00Interface, External Ris In - 11/11/2020 6:08 PM CSTFINAL REPORT TECHNIQUE: Frontal view of the chest. INDICATION: follow up cxr post right thora skin fold vs. PTX. COMPARISON: Chest radiographs dating back to 09/26/2017 FINDINGS: LINES/TUBES: None. LUNGS: The previously seen possible right upper lung nodule has resolved. There is a linear opacity of the left upper chest whichmeasures 0.4 cm. No consolidation or pulmonary edema. PLEURA: Small right pleural effusion. No definite pneumothorax is seen. However, there is still a likely skinfold over the right upper chest. HEARTAND MEDIASTINUM: The cardiac silhouette is normal in size. SOFT TISSUES AND BONES: Biopsy clip over t he stomach.. IMPRESSION: There is likely no pneumothorax. There is still a skinfold over the right upper chest. Small residual right pleural effusion. A linear opacity of the left upper chest measures0.4 cm. A follow-up radiograph is recommended in one year to document stability. Signed: Jeb Lopez MDReport Verified Date/Time: 11/11/2020 18:05:58 Reading Location: [address] Consult Reading Room [facility] HospitalRAD, CHEST, 1 VIEW, NON [id number] 17:24:00Referring: Dr. Mohsen Padron for exam:->post right sided thoracentesisShould this be performed at the bedside?->Yes [facility] SMILEYSAMIR SMILEY : 1950 Sex: FFINAL REPORT TECHNIQUE: Frontal view of the chest. INDICATION: post r ight sided thoracentesis. COMPARISON: Chest radiograph from 08/31/2020. FINDINGS: LINES/TUBES: None. LUNGS: Mild right basilar atelectasis. A questionable nodular opacity of the right upper lung measures 0.7 cm PLEURA: Small residual right pleural effusion. There are likely skinfold of the right upper chest HEART AND MEDIASTINUM: The cardiac silhouette is normal in size. SOFT TISSUES AND BONES: Biopsy clip over the stomach. IMPRESSION: The lines over the right upper chest are most likely skin fold. However, a repeat radiograph is recommended for confirmation. A questionable nodular opacity of theright upper lung measures 0.7 cm. Close attention on follow-up imaging is recommended. Signed: Jeb Lopez Verified Date/Time: 11/11/2020 17:24:49 Reading Location: [address] Consult Reading Room U/S, [id number] 12:21:00Referring: Dr. Mohsen Dillarddminister 200 mL of albumin 25% (50 grams) IV x1 after paracentesis if3 or more liters removed.Send ascitic fluid for cell count and differential.Labs to be ordered:->Cell CountReason for Exam:->ascitesDOCTORS [facility]ame: SAMIR REIS : 1950 Sex: FFINAL REPORT Ultrasound guided paracentesis Clinical History: Ascite s. Sedation: None. Manager Laboratory: Shasha Hall PA-C Supervising Physician: Marnie Aguilar MD Social Welfare Administrator: None. Estimated Blood Loss: < 1 mL. Specimen: 2400 mL of clear yellow fluid, samples sent to laboratory. Technique: Informed consent was obtained. The risks of pain, bleeding, infection, bowel perforation, injury to adjacent structures, and adverse medication reactions were discussed with the patient. After informed consent was obtained, the patient's abdomen was scanned. The right lower quadrant of the abdomen was selected for paracentesis. After the largest fluid pocket area was marked, and the anterior abdominal wall was evaluated with color Doppler to exclude presence of blood vessels traversing the area, the skin was prepped and draped in the usual sterile manner. After local anesthesia was achieved with lidocaine, a 5 Indonesian one-step catheter was advanced into the peritoneal cavity under ultrasound guidance. After completion of drainage, the catheter was removed. There was no evidence of complication. Impression:Successful ultrasound guided paracentesis.Signed: Marnie Aguilar MDRort Verified Date/Time: 10/27/2020 12:21:45 Reading Location: [facility] P006J Ultrasound Reading Room Ultrasound [id number] 12:21:00Interface, External Ris In - 10/27/2020 12:24 PM CSTFINAL REPORT Ultrasound guided paracentesis Clinical History: Ascites. Sedation: None. Manager Laboratory: Shasha Hall PA-C Supervising Physician: Marnie Aguilar MD Social Welfare Administrator: None. Estimated Blood Loss: <1 mL. Specimen: 2400 mL of clear yellow fluid, samples sent to laboratory. Technique: Informed consent was obtained. The risks of pain, bleeding, infection, bowel perforation, injury to adjacent structures, and adverse medication reactions were discussed with the patient. After informed consent was obtained, the patient's abdomen was scanned. The right lower quadrant of the abdomen was selected for paracentesis. After the largest fluid pocket area was marked, and the anterior abdominal wall was evaluated with color Doppler to exclude presence of blood vessels traversing the area, the skin wasprepped and draped in the usual sterile manner. After local anesthesia was achieved with lidocaine,a 5 Indonesian one-step catheter was advanced into the peritoneal cavity under ultrasound guidance. After completion of drainage, the catheter was removed. There was no evidence of complication. Impression:Successful ultrasound guided paracentesis. Signed: Marnie Aguilareport Verified Date/Time: 10/27/2020 12:21:45 Reading Location: [facility] P006J Ultrasound Reading [facility] COUNT WITH [id number] 17:59:00 Test Item Value Reference Range Interpretation Comments APPEARANCE FLUID (BEAKER) Slightly Hazy Clear A (test code = 510) COLOR FLUID (BEAKER) (test Yellow Colorless, Straw A code = 511) RBC FLUID (BEAKER) (test 101 /cu mm <=1 H code = 513) ADJUSTED WBC FLUID 19 /cu mm <=5 H (BEAKER) (test code = 1691) LINING CELLS (BEAKER) 0 /cu mm <=1 (test code = 1590) NEUTROPHILS FLUID (BEAKER) 17 % (test code = 1656) LYMPHS FLUID (BEAKER) 16 % (test code = 488) MONO/MACROPHAGE FLUID 67 % (BEAKER) (test code = 489) EOSINOPHILS FLUID (BEAKER) 0 % (test code = 491) BASO FLUID (BEAKER) (test 0 % code = 492) CONTAINER BODY FLUID Sterile Container (BEAKER) (test code = 2873) CBC W/PLT COUNT & AUTO [id number] 14:21:00 Test Item Value Reference Range Interpretation Comments WHITE BLOOD CELL COUNT (BEAKER) 4.4 K/ L 3.5-10.5 (test code = 775) RED BLOOD CELL COUNT (BEAKER) 3.16 M/ L 3.93-5.22 L (test code = 761) HEMOGLOBIN (BEAKER) (test code = 9.1 GM/DL 11.2-15.7 L 410) HEMATOCRIT (BEAKER) (test code = 27.8 % 34.1-44.9 L 411) MEAN CORPUSCULAR VOLUME (BEAKER) 88.0 fL 79.4-94.8 (test code = 753) MEAN CORPUSCULAR HEMOGLOBIN 28.8 pg 25.6-32.2 (BEAKER) (test code = 751) MEAN CORPUSCULAR HEMOGLOBIN CONC 32.7 GM/DL 32.2-35.5 (BEAKER) (test code = 752) RED CELL DISTRIBUTION WIDTH 14.8 % 11.7-14.4 H (BEAKER) (test code = 412) PLATELET COUNT (BEAKER) (test code 97 K/CU MM 150-450 L = 756) MEAN PLATELET VOLUME (BEAKER) 11.1 fL 9.4-12.3 (test code = 754) NUCLEATED RED BLOOD CELLS (BEAKER) 0 /100 WBC 0-0 (test code = 413) NEUTROPHILS RELATIVE PERCENT 80 % (BEAKER) (test code = 429) LYMPHOCYTES RELATIVE PERCENT 8 % (BEAKER) (test code = 430) MONOCYTES RELATIVE PERCENT 9 % (BEAKER) (test code = 431) EOSINOPHILS RELATIVE PERCENT 2 % (BEAKER) (test code = 432) BASOPHILS RELATIVE PERCENT 1 % (BEAKER) (test code = 437) NEUTROPHILS ABSOLUTE COUNT 3.49 K/ L 1.56-6.13 (BEAKER) (test code = 670) LYMPHOCYTES ABSOLUTE COUNT 0.35 K/ L 1.18-3.74 L (BEAKER) (test code = 414) MONOCYTES ABSOLUTE COUNT (BEAKER) 0.39 K/ L 0.24-0.36 H (test code = 415) EOSINOPHILS ABSOLUTE COUNT 0.09 K/ L 0.04-0.36 (BEAKER) (test code = 416) BASOPHILS ABSOLUTE COUNT (BEAKER) 0.02 K/ L 0.01-0.08 (test code = 417) IMMATURE GRANULOCYTES-RELATIVE 1 % 0-1 PERCENT (BEAKER) (test code = 2801) [id number] 14:20:00 Test Item Value Reference Range Interpretation Comments PTT (test code = 32168-7) 36.0 See_Comment [ Automated message] The system mNectar generated this result transmitted ref erence range: 22.5 - 3 6.0 seconds. The re ference range was not u sed to interpret this result as normal/abnor mal. Lab Interpretation (test Normal code = 39420-6) [facility] HospitalPROTHROMBIN [id number] 14:20:00 Test Item Value Reference Range Interpretation Comments PROTIME (BEAKER) (test code = 17.1 seconds 11.9-14.2 H 759) INR (MALU) (test code = 370) 1.43 <=5.90 Effective 04/09/2019: PT Reference Range ChangeNew: 11.9-14.2 Previous: 11.7- 14.7RECOMMENDED COUMADIN/WARFARIN INR THERAPY RANGESSTANDARD DOSE: 2.0-3.0 Includes: PROPHYLAXIS for venous thrombosis, systemic embolization; TREATMENT for venous thrombosis and/or pulmonary embolus.HIGH RISK: Target INR is2.5-3.5 for patients wiht mechanical heart valves.[id number] 14:20:00 Test Item Value Reference Range Interpretation Comments PARTIAL THROMBOPLASTIN TIME 36.0 seconds 22.5-36.0 (MALU) (test code = 760) CBC with platelet count + automated [id number] 15:17:00 Test Item Value Reference Range Interpretation Comments WBC (test code = 3.4 See_Comment L [Automated ) message] The system which generated this result transmitted reference range : 3.8 - 10.8 Thousand/uL. Th e reference range was not used to interpret this result as normal/abnormal . RBC (test code = 2.87 See_Comment L [Automated 789-8) message] The system which generated this result transmitted reference range : 3.80 - 5.10 Million/uL. The reference range was not used to interpret this result as normal/abnormal . Hemoglobin (test 8.3 g/dL 11.7-15.5 L code = ) Hematocrit (test 25.6 % 35-45 L code = ) MCV (test code = 89.2 fL 80-438 1334995) MCH (test code = 28.9 pg 27-33 ) MCHC (test code = 32.4 g/dL 32-36 ) RDW (test code = 13.8 % 11-15 ) Platelets (test code 80 See_Comment L [Autom ated = ) message] The system which generated this result transmitted reference range : 140 - 400 Thousand/uL. Th e reference range was not used to interpret this result as normal/abnormal . MPV (test code = 10.8 fL 7.5-12.5 8203605) # Neutros (test code 2856 See_Comment [Autom ated = 2101214) message] The system which generated this result transmitted reference range : 1,500 - 7,800 cells/uL. The reference range was not used to interpret this result as normal/abnormal . # Lymphs (test code 286 See_Comment L [Automa kianna = 731-0) message] The system which generated this result transmitted reference range : 850 - 3,900 cells/uL. The reference range was not used to interpret this result as normal/abnormal . # Monos (test code = 207 See_Comment [Autom ated ) message] The system which generated this result transmitted reference range : 200 - 950 cells/uL. The reference range was not used to interpret this result as normal/abnormal . # Eos (test code = 31 See_Comment [Automat ed 711-2) message] The system which generated this result transmitted reference range : 15 - 500 cells/uL. The reference range was not used to interpret this result as normal/abnormal . # Baso (test code = 20 See_Comment [Automa kianna 704-7) message] The system which generated this result transmitted reference range : 0 - 200 cells/u L. The reference range was not used to interpr et this result as normal/abnormal . % Neutros (test code 84 % = ) % Lymphs (test code 8.4 % = 20200603) % Monos (test code = 6.1 % ) % Eos (test code = 0.9 % 20200601) % Baso (test code = 0.6 % 20200602) Comment(s) (test Giant plate lets code = 7019701) noted. FAUSTO (test code = FASTING:NOFASTING: FAUSTO) NO RAC (test code = Performing RAC) Organization Information: Site ID: RGA Name: [facility] Lab Address: [address] [place] [id number] Director: Lina Childs Lab Interpretation Abnormal (test code = 04448-9) [facility] HospitalPLATELET [id number] 15:17:00 Test Item Value Reference Range Interpretation Comments Platelet Estimate (test DECREASED ADEQUATE A code = 22357-2) FAUSTO (test code = FAUSTO) FASTING:NOFASTING: NO RAC (test code = RAC) Performing Organization Information: Site ID: [facility]: [facility] Lab Address: [address] [place] [id number] Director: Lina Childs Lab Interpretation (test Abnormal code = 58183-4) [facility] HospitalU/S, [id number] 17:47:00Referring: Dr. Mohsen Josephinisvic 200 mL of albumin 25% (50 grams) IV x1 after paracentesis Send ascitic fluid for cell count and differential.Labs to be ordered:->Cell CountReason for Exam:->ascites [facility] S[facility] : 1950 Sex: FFINAL REPORT Ultrasound guided paracentesis Clinical History: Ascite s. Sedation: None. Manager Laboratory: Shasha Hall PA-C Supervising Physician: Marnie Aguilar MD Social Welfare Administrator: None. Estimated Blood Loss: < 1 mL. Specimen: 1600 mL of clear yellow fluid, samples sent to laboratory. Technique: Informed consent was obtained. The risks of pain, bleeding, infection, bowel perforation, injury to adjacent structures, and adverse medication reactions were discussed with the patient. After informed consent was obtained, the patient's abdomen was scanned. The right lower quadrant of the abdomen was selected for paracentesis. After the largest fluid pocket area was marked, and the anterior abdominal wall was evaluated with color Doppler to exclude presence of blood vessels traversing the area, the skin was prepped and draped in the usual sterile manner. After local anesthesia was achieved with lidocaine, a 5 Indonesian one-step catheter was advanced into the peritoneal cavity under ultrasound guidance. After completion of drainage, the catheter was removed. There was no evidence of complication. Impression:Successful ultrasound guided paracentesis.Signed: Marnie Aguilarepdao Verified Date/Time: 08/31/2020 17:47:21 Reading Location: [address] Ultrasound Reading Room U/S, [id number] 17:46:00Referring: Dr. Mohsen Josephinister 200 mL of albumin 25% (50 grams) IV x1 after thoracentesisSend fluid for cell count and differential.Laterality?->RightLabs to be Ordered:- >Cell CountReason for Exam:->pleural effusion [facility] : 1950 Sex: FFINAL REPORT Exam: Ultrasound guided thoracentesis Clinical History: Right-sided Pleural Effusion Manager Laboratory: Shasha Hall PA-C Supervising Physician: Marnie Aguilar MD Consent: Benefits and risks were explained to the patient who gave consent to the procedure. Complication: None Immediate Procedure: The patient was placed in sitting position. The right posterior chest was prepped and draped in usual sterile fashion. 2% lidocaine was used as local anesthetic. Under ultrasound guidance, a thoracentesis catheter was inserted into the pleural cavity. Approximately 1200 cc of clear yellow pleural fluid was aspirated. The catheter was removed. The specimen was sent to the laboratory for further analysis. The patient tolerated the procedure well without any adverse reaction. A STAT chest x-ray was ordered. The patient left the department in stable condition. Impression: Ultrasound guided right-sided thoracentesis. Signed: Marnie Aguilar Verified Date/Time: 08/31/2020 17:46:41 Reading Location: [facility] B1 P006J Ultrasound Reading Room [employer] [facility] signed by: MARNIE AGUILAR M.D. on 08/31/2020 05:46 PMBODY FLUID CELL COUNT WITH [id number] 15:35:00 Test Item Value Reference Range Interpretation Comments APPEARANCE FLUID (BEAKER) (test Hazy Clear A code = 510) COLOR FLUID (BEAKER) (test code Straw Colorless, Straw = 511) RBC FLUID (BEAKER) (test code = 328 /cu mm <=1 H 513) ADJUSTED WBC FLUID (BEAKER) 75 /cu mm <=5 H (test code = 1691) LINING CELLS (BEAKER) (test 3 /cu mm <=1 H code = 1590) NEUTROPHILS FLUID (BEAKER) 20 % (test code = 1656) LYMPHS FLUID (BEAKER) (test 57 % code = 488) MONO/MACROPHAGE FLUID (BEAKER) 23 % (test code = 489) EOSINOPHILS FLUID (BEAKER) 0 % (test code = 491) BASO FLUID (BEAKER) (test code 0 % = 492) CONTAINER BODY FLUID (BEAKER) Sterile Vial (test code = 2873) BODY FLUID CELL COUNT WITH [id number] 15:34:00 Test Item Value Reference Range Interpretation Comments APPEARANCE FLUID (BEAKER) (test Cloudy Clear A code = 510) COLOR FLUID (BEAKER) (test code Straw Colorless, Straw = 511) RBC FLUID (BEAKER) (test code = 772 /cu mm <=1 H 513) ADJUSTED WBC FLUID (BEAKER) 158 /cu mm <=5 H (test code = 1691) LINING CELLS (BEAKER) (test 2 /cu mm <=1 H code = 1590) NEUTROPHILS FLUID (BEAKER) 32 % (test code = 1656) LYMPHS FLUID (BEAKER) (test 31 % code = 488) MONO/MACROPHAGE FLUID (BEAKER) 37 % (test code = 489) EOSINOPHILS FLUID (BEAKER) 0 % (test code = 491) BASO FLUID (BEAKER) (test code 0 % = 492) CONTAINER BODY FLUID (BEAKER) Sterile Vial (test code = 2873) RAD, CHEST, 1 VIEW, NON [id number] 11:31:00Referring: Dr. Mohsen Padron for exam:->post right sided thoracentesisShould this be perfor med at the bedside?->Yes [facility] : 1950 Sex: FFINAL REPORT RAD, CHEST, 1 VIEW, NON DEPT INDICATION: post right sided thoracentesis COMPARISON: April 22, 2020 FINDINGS: Portable frontal view of the chest. IMPRESSION: Support Lines: None Lungs and pleura: Overall volume of right effusion is similar to the preprocedural examination obtained five months prior. No postprocedural pneumothorax.Heart and mediastinum: Stable contours. Additional findings: None. Signed: JR De Anda Robert MDReport Verified Date/Time: 08/31/2020 11:31:20 Reading Location: [facility] Radiology Reading Room MR, ABDOMEN, [id number] 15:47:00Referring: Dr. Mohsen Downs Abdominal VesselsFINAL REPORT TECHNIQUE: MRI of the abdomen WITHOUT and WITH intravenous contrast. INDICATION: 70-year-old woman with cirrhosis. COMPARISON: Abdomen CT 03/23/2020. FINDINGS: LOWERTHORAX: Large right pleural effusion with relaxation atelectasis of the adjacent right lung. LIVER: Cirrhotic morphology of the liver. Unchanged 0.8 cm arterially enhancing observation in the peripheryof segment V with washout (LI-RADS 4, axial postcontrast arterial series image 66). Few additional scattered subcentimeter arterially enhancing observations without corresponding washout or pseudocapsule (LI-RADS 3). Unchanged 2 x 1.7 cm cyst in segment VIII (LI-RADS 1). BILIARY: Prior cholecystectomy. Common duct is at the upper limit of normal in caliber without definite filling defect. Thin linearfilling defects adjacent to the cyst in hepatic segment VIII may represent mildly prominent bile ducts or small thrombosed branches of the right portal vein. SPLEEN: Spleen is prominent and measures 16.4 cm in the craniocaudal dimension.PANCREAS: No focal mass or ductal dilatation. ADRENALS: No adrenal nodule.KIDNEYS/URETERS: No hydronephrosis or mass. PERITONEUM/RETROPERITONEUM: Moderate volume ascites.LYMPH NODES: No lymphadenopathy.VESSELS: Unchanged nonocclusive thrombus in the right portal, main portal, and superior mesenteric veins. Main portal vein is prominent measures 1.6 cm in diameter. Nonocclusive thrombus in the right hepatic vein, not clearly visualized on prior exam. Recanalized umbilical vein. Esophageal varices. Conventional hepatic arterial anatomy. Abdominal aorta is normal in c aliber. GI TRACT: Susceptibility artifact in the region of the stomach. Apparent wall thickening of the visualized stomach and colon. No bowel obstruction. BONES AND SOFT TISSUES: Unremarkable. IMPRESSION:Cirrhosis with portal hypertension and moderate volume ascites. Unchanged 0.8 cm arterially enhancing observation in segment V, suspicious for hepatocellular carcinoma (LI-RADS 4). Additional subcentimeter arterially enhancing observations are indeterminate and may be shunts (LI-RADS 3). Unchangednonocclusive thrombus in the right portal, main portal, and superior mesenteric veins. Nonocclusive thrombus in the right hepatic vein, not clearly visualized on prior exam. Thin linear filling defects adjacent to the cyst in hepatic segment VIII may represent mildly prominent bile ducts or small thrombosed branches of the right portal vein. Apparent wall thickening of the visualized stomach and colon may be due to portal hypertension or gastritis/colitis. Large right pleural effusion. RECOMMENDATION:Follow-up abdomen MRI with and without intravenous contrast (liver protocol) may be obtained in 3-6 months for reassessment. Signed: Jr Bolanos Verified Date/Time: 08/24/2020 15:47:50 ALPHA FETOPROTEIN (AFP), TUMOR MARKER 2020-08-24 12:04:00 Test Item Value Reference Range Interpretation Comments ALPHA-FETOPROTEIN (BEAKER) (test 2.4 ng/mL <10.0 code = 1094) Polymerization Helper ID - ROSIANGCBC W/PLT COUNT & AUTO [id number] 11:58:00 Test Item Value Reference Range Interpretation Comments WHITE BLOOD CELL COUNT (BEAKER) 3.9 K/ L 3.5-10.5 (test code = 775) RED BLOOD CELL COUNT (BEAKER) 3.57 M/ L 3.93-5.22 L (test code = 761) HEMOGLOBIN (BEAKER) (test code = 10.7 GM/DL 11.2-15.7 L 410) HEMATOCRIT (BEAKER) (test code = 33.2 % 34.1-44.9 L 411) MEAN CORPUSCULAR VOLUME (BEAKER) 93.0 fL 79.4-94.8 (test code = 753) MEAN CORPUSCULAR HEMOGLOBIN 30.0 pg 25.6-32.2 (BEAKER) (test code = 751) MEAN CORPUSCULAR HEMOGLOBIN CONC 32.2 GM/DL 32.2-35.5 (BEAKER) (test code = 752) RED CELL DISTRIBUTION WIDTH 15.2 % 11.7-14.4 H (BEAKER) (test code = 412) PLATELET COUNT (BEAKER) (test code 82 K/CU MM 150-450 L = 756) MEAN PLATELET VOLUME (BEAKER) 11.3 fL 9.4-12.3 (test code = 754) NUCLEATED RED BLOOD CELLS (BEAKER) 0 /100 WBC 0-0 (test code = 413) NEUTROPHILS RELATIVE PERCENT 84 % (BEAKER) (test code = 429) LYMPHOCYTES RELATIVE PERCENT 9 % (BEAKER) (test code = 430) MONOCYTES RELATIVE PERCENT 5 % (BEAKER) (test code = 431) EOSINOPHILS RELATIVE PERCENT 1 % (BEAKER) (test code = 432) BASOPHILS RELATIVE PERCENT 1 % (BEAKER) (test code = 437) NEUTROPHILS ABSOLUTE COUNT 3.26 K/ L 1.56-6.13 (BEAKER) (test code = 670) LYMPHOCYTES ABSOLUTE COUNT 0.35 K/ L 1.18-3.74 L (BEAKER) (test code = 414) MONOCYTES ABSOLUTE COUNT (BEAKER) 0.21 K/ L 0.24-0.36 L (test code = 415) EOSINOPHILS ABSOLUTE COUNT 0.02 K/ L 0.04-0.36 L (BEAKER) (test code = 416) BASOPHILS ABSOLUTE COUNT (BEAKER) 0.02 K/ L 0.01-0.08 (test code = 417) IMMATURE GRANULOCYTES-RELATIVE 0 % 0-1 PERCENT (BEAKER) (test code = 2801) COMPREHENSIVE METABOLIC [id number] 11:50:00 Test Item Value Reference Range Interpretation Comments TOTAL PROTEIN 8.7 gm/dL 6.0-8.3 H (BEAKER) (test code = 770) ALBUMIN (BEAKER) 3.8 g/dL 3.5-5.0 (test code = 1145) ALKALINE PHOSPHATASE 106 U/L 40-150 (BEAKER) (test code = 346) BILIRUBIN TOTAL 0.9 mg/dL 0.2-1.2 (BEAKER) (test code = 377) SODIUM (BEAKER) (test 135 meq/L 136-145 L code = 381) POTASSIUM (BEAKER) 4.7 meq/L 3.5-5.1 (test code = 379) CHLORIDE (BEAKER) 101 meq/L 98-107 (test code = 382) CO2 (BEAKER) (test 28 meq/L 22-29 code = 355) BLOOD UREA NITROGEN 18 mg/dL 7-21 (BEAKER) (test code = 354) CREATININE (BEAKER) 1.30 mg/dL 0.57-1.25 H (test code = 358) GLUCOSE RANDOM 135 mg/dL 70-105 H (BEAKER) (test code = 652) CALCIUM (BEAKER) 9.5 mg/dL 8.4-10.2 (test code = 697) AST (SGOT) (BEAKER) 25 U/L 5-34 (test code = 353) ALT (SGPT) (BEAKER) 16 U/L 6-55 (test code = 347) EGFR (BEAKER) (test 40 mL/min/1.73 ESTIMA KIANNA GFR IS code = 1092) sq m NOT ACCURATE CREATININE CLEARANCE IN PREDICTING GLOMERULAR FILTRATION RATE . ESTIMATED GFR I S NOT APPLICABLE FOR DIALYSIS PATIEN TS. Polymerization Helper ID - ROSSINDHUILIRUBIN, [id number] 11:50:00 Test Item Value Reference Range Interpretation Comments BILIRUBIN DIRECT (BEAKER) (test 0.6 mg/dL 0.1-0.5 H code = 706) Polymerization Helper ID - ROSIANGPROTHROMBIN [id number] 11:37:00 Test Item Value Reference Range Interpretation Comments PROTIME (BEAKER) (test code = 16.1 seconds 11.9-14.2 H 759) INR (BEAKER) (test code = 370) 1.33 <=5.90 Effective 04/09/2019: PT Reference Range ChangeNew: 11.9-14.2 Previous: 11.7- 14.7RECOMMENDED COUMADIN/WARFARIN INR THERAPY RANGESSTANDARD DOSE: 2.0-3.0 Includes: PROPHYLAXIS for venous thrombosis, systemic embolization; TREATMENT for venous thrombosis and/or pulmonary embolus.HIGH RISK: Target INR is2.5-3.5 for patients wiht mechanical heart valves.U/S, [id number] 18:12:00 Referring: Dr. Mohsen Josephinister 200 mL of albumin 25% (50 grams) IV x1 after paracentesis if3 or more liters removed.Send ascitic fluid for cell count and differential.Labs to be ordered:->Cell CountReason for Exam:->ascites FINAL REPORT Ultrasound guided paracentesis. Clinical History: Ascites. Sedation: None. Manager Laboratory: Cindy Payton PA-C Social Welfare Administrator: None. Estimated Blood Loss: < 1 cc. Specimen: 2700 cc of clear yellow fluid, samples sent to laboratory. Technique: Informed consent was obtained. The risks of pain, bleeding, infection, bowel perforation, injury to adjacent structures, and adverse medication reactions were discussed with the patient. After informed consent was obtained, the patient's abdomen was scanned. The RLQ of the abdomen was selected for paracentesis. After the largest fluid pocket area was marked, and the anterior abdominal wall was evaluated with color Doppler to exclude presence of blood vessels traversing the area, the skin was preppedand draped in the usual sterile manner. After local anesthesia was achieved with 2% lidocaine, a 5 Indonesian one-step catheter was advanced into the peritoneal cavity under ultrasound guidance. After completion of drainage, the catheter was removed. There was no evidence of complication. Impression:Successful ultrasound guided paracentesis. Signed: Brennan Ramirez Verified Date/Time: 08/23/202018:12:23 Reading Location: [address] Ultrasound Reading Room BODY FLUID CELL COUNT WITH [id number] 16:14:00 Test Item Value Reference Range Interpretation Comments APPEARANCE FLUID (BEAKER) (test Hazy Clear A code = 510) COLOR FLUID (BEAKER) (test code = Colorless Colorless, Straw 511) RBC FLUID (BEAKER) (test code = 110 /cu mm <=1 H 513) ADJUSTED WBC FLUID (BEAKER) (test 69 /cu mm <=5 H code = 1691) LINING CELLS (BEAKER) (test code 6 /cu mm <=1 H = 1590) NEUTROPHILS FLUID (BEAKER) (test 7 % code = 1656) LYMPHS FLUID (BEAKER) (test code 12 % = 488) MONO/MACROPHAGE FLUID (BEAKER) 81 % (test code = 489) EOSINOPHILS FLUID (BEAKER) (test 0 % code = 491) BASO FLUID (BEAKER) (test code = 0 % 492) CONTAINER BODY FLUID (BEAKER) EDTA Tube (test code = 2873) PROTHROMBIN [id number] 08:21:00 Test Item Value Reference Range Interpretation Comments PROTIME (BEAKER) (test code = 16.0 seconds 11.9-14.2 H 759) INR (BEAKER) (test code = 370) 1.32 <=5.90 Effective 04/09/2019: PT Reference Range ChangeNew: 11.9-14.2 Previous: 11.7- 14.7RECOMMENDED COUMADIN/WARFARIN INR THERAPY RANGESSTANDARD DOSE: 2.0-3.0 Includes: PROPHYLAXIS for venous thrombosis, systemic embolization; TREATMENT for venous thrombosis and/or pulmonary embolus.HIGH RISK: Target INR is2.5-3.5 for patients wiht mechanical heart valves.CBC W/PLT COUNT & AUTO [id number] 08:17:00 Test Item Value Reference Range Interpretation Comments WHITE BLOOD CELL COUNT (BEAKER) 4.8 K/ L 3.5-10.5 (test code = 775) RED BLOOD CELL COUNT (BEAKER) 3.28 M/ L 3.93-5.22 L (test code = 761) HEMOGLOBIN (BEAKER) (test code = 9.8 GM/DL 11.2-15.7 L 410) HEMATOCRIT (BEAKER) (test code = 30.0 % 34.1-44.9 L 411) MEAN CORPUSCULAR VOLUME (BEAKER) 91.5 fL 79.4-94.8 (test code = 753) MEAN CORPUSCULAR HEMOGLOBIN 29.9 pg 25.6-32.2 (BEAKER) (test code = 751) MEAN CORPUSCULAR HEMOGLOBIN CONC 32.7 GM/DL 32.2-35.5 (BEAKER) (test code = 752) RED CELL DISTRIBUTION WIDTH 15.1 % 11.7-14.4 H (BEAKER) (test code = 412) PLATELET COUNT (BEAKER) (test code 80 K/CU MM 150-450 L = 756) MEAN PLATELET VOLUME (BEAKER) 10.2 fL 9.4-12.3 (test code = 754) NUCLEATED RED BLOOD CELLS (BEAKER) 0 /100 WBC 0-0 (test code = 413) NEUTROPHILS RELATIVE PERCENT 85 % (BEAKER) (test code = 429) LYMPHOCYTES RELATIVE PERCENT 7 % (BEAKER) (test code = 430) MONOCYTES RELATIVE PERCENT 7 % (BEAKER) (test code = 431) EOSINOPHILS RELATIVE PERCENT 1 % (BEAKER) (test code = 432) BASOPHILS RELATIVE PERCENT 0 % (BEAKER) (test code = 437) NEUTROPHILS ABSOLUTE COUNT 4.08 K/ L 1.56-6.13 (BEAKER) (test code = 670) LYMPHOCYTES ABSOLUTE COUNT 0.32 K/ L 1.18-3.74 L (BEAKER) (test code = 414) MONOCYTES ABSOLUTE COUNT (BEAKER) 0.34 K/ L 0.24-0.36 (test code = 415) EOSINOPHILS ABSOLUTE COUNT 0.04 K/ L 0.04-0.36 (BEAKER) (test code = 416) BASOPHILS ABSOLUTE COUNT (BEAKER) 0.02 K/ L 0.01-0.08 (test code = 417) IMMATURE GRANULOCYTES-RELATIVE 0 % 0-1 PERCENT (BEAKER) (test code = 2801) U/S, [id number] 14:36:00Referring: Dr. Mohsen Dillarddminister 200 mL of albumin 25% (50 grams) IV x1 after paracentesis if3 or more liters removed.Send ascitic fluid for cell count and differential.Labs to be ordered:->Cell CountLabs to be ordered:->Other (please add comment)Reason for Exam:->ascitesFINAL REPORT Ultrasound guided paracentesis. Clinical History: Ascites. Sedation: None. Manager Laboratory: Cindy Payton PA-C Social Welfare Administrator: None. Estimated Blood Loss: < 1 cc. Specimen: 600 cc of clear yellow fluid, samples sent to laboratory. Technique: Informed consent was obtained. The risks of pain, bleeding, infection, bowel perforation, injury to adjacent structures, and adverse medication reactions were discussed with the patient. After informed consent was obtained, the patient's abdomen was scanned. The RUQ of the abdomen was selected for paracentesis. After the largest fluid pocket area was marked, and the anterior abdominal wall was evaluated with color Doppler to exclude presence of blood vessels traversing the area, the skin was prepped and draped in the usual sterile manner. After local anesthesia was achieved with 2% lidocaine, a 5 Indonesian one-step catheter was advanced into the peritoneal cavity under ultrasound guidance. After completion of drainage, the catheter was removed. There was no evidence of complication. Impression:Successful ultrasound guided paracentesis. Signed: Tanner Quintanilla Verified Date/Time: 07/07/2020 1 4:36:04 Reading Location: [address] Ultrasound Reading Room BODY FLUID CELL COUNT WITH [id number] 11:24:00 Test Item Value Reference Range Interpretation Comments APPEARANCE FLUID (BEAKER) (test Clear Clear code = 510) COLOR FLUID (BEAKER) (test code Yellow Colorless, Straw A = 511) RBC FLUID (BEAKER) (test code = 225 /cu mm <=1 H 513) ADJUSTED WBC FLUID (BEAKER) 104 /cu mm <=5 H (test code = 1691) LINING CELLS (BEAKER) (test code 0 /cu mm <=1 = 1590) NEUTROPHILS FLUID (BEAKER) (test 24 % code = 1656) LYMPHS FLUID (BEAKER) (test code 21 % = 488) MONO/MACROPHAGE FLUID (BEAKER) 55 % (test code = 489) EOSINOPHILS FLUID (BEAKER) (test 0 % code = 491) BASO FLUID (BEAKER) (test code = 0 % 492) CONTAINER BODY FLUID (BEAKER) Sterile Cup (test code = 2873) BODY FLUID CELL COUNT WITH [id number] 15:07:00 Test Item Value Reference Range Interpretation Comments APPEARANCE FLUID (BEAKER) (test Hazy Clear A code = 510) COLOR FLUID (BEAKER) (test code = Straw Colorless, Straw 511) RBC FLUID (BEAKER) (test code = 545 /cu mm <=1 H 513) ADJUSTED WBC FLUID (BEAKER) (test 188 /cu mm <=5 H code = 1691) LINING CELLS (BEAKER) (test code 24 /cu mm <=1 H = 1590) NEUTROPHILS FLUID (BEAKER) (test 31 % code = 1656) LYMPHS FLUID (BEAKER) (test code 21 % = 488) MONO/MACROPHAGE FLUID (BEAKER) 48 % (test code = 489) EOSINOPHILS FLUID (BEAKER) (test 0 % code = 491) BASO FLUID (BEAKER) (test code = 0 % 492) CONTAINER BODY FLUID (BEAKER) EDTA Tube (test code = 2873) RAD, CHEST, 1 VIEW, NON [id number] 11:21:00Referring: Dr. Mohsen Padron for exam:->s/p right thora repeat cxr for possible ptxShould t his be performed at the bedside?->YesFINAL REPORT CLINICAL HISTORY: s/p right thora repeat cxr for possible ptx TECHNIQUE: 1 view of the chest. COMPARISON: 04/22/2020 IMPRESSION: The previous linear opacity is less apparent, and likely was related to lung markings. There is currently no evidence of pneumothorax. A small right pleural effusion is unchanged. Left lung remains well-aerated. The cardiomediastinal silhouette is magnified by technique. Signed: Brit Rodriguez MDReport Verified Date/Time: 04/22/2020 11:21 :59 Reading Location: [facility] Radiology Reading Room U/S, ABDOMINAL, LIMITED 2020-04-22 10:05:00Referring: Dr. Mohsen Gastelum Administer 200 mL of albumin 25% (50 grams) IV x1 after paracentesis if 3 or more liters removed. Send ascitic fluid for cell count and differential. Labs to be ordered:->Other (please add comment) Reason for Exam:->ascitesFINAL REPORT History: Ascites. PROCEDURE: Limited sonographic examination of the abdomen was performed in preparation for planned ultrasound-guided paracentesis. Limited sonographic examination of the abdomen showed a small amount of fluid, primarily in the right upper quadrant.Therefore, paracentesis was not performed. IMPRESSION: 1. Small ascites, not enough for planned therapeutic paracentesis. Signed: Marnie Aguilar Verified Date/Time: 04/22/2020 10:05:27 Reading Location: [address] Ultrasound Reading Room US abdomen [id number] 10:05:00 Interface, External Ris In - 04/22/2020 10:07 AM CDTFINAL REPORT History: Ascites. PROCEDURE: Limited sonographic examination of the abdomen was performed in preparation for planned ultrasound-guided paracentesis. Limited sonographic examination of the abdomen showed a small amount of fluid, primarily in the right upper quadrant. Therefore, paracentesis was not performed. IMPRESSION: 1. Small ascites, not enough for planned therapeutic paracentesis. Signed: Marnie Aguilar Verified Date/Time: 04/22/2020 10:05:27 Reading Location: [address] Ultrasound [facility], [id number] 10:04:00Referring: Dr. Mohsen Dillarddminister 200 mL of albumin 25% (50 grams) IV x1 after thoracentesisSend fluid for cell count and differential.Laterality?->Rightplease check both sidesLabs to be Ordered:->Other (please add comment)Reason for Exam:->hydrothoraxFINAL REPORT Ultrasound guided right thoracentesis Clinical History: Right pleural effusion. Modality: Ultrasound. Sedation: None. Manager Laboratory: Cindy Payton PA-C Social Welfare Administrator: None. Estimated Blood Loss: 1cc Specimen: 1400 cc of clear yellow fluid. Technique: Informed consent was obtained. The risks of pain, bleeding, infection, lung collapse/pneumothorax, injury to adjacent structures, and adverse medication reactions were discussed with the patient. The patient's right hemithorax was scanned from the back, with the patient in a sitting position. After the largest fluid pocket area was marked, the skin was prepped and draped in the usual sterile manner. The area was anesthetized with 2% lidocaine, a 5 F one-step catheter was advanced into thepleural space under ultrasound guidance. After completion of drainage, the catheter was removed. There was no evidence of immediate complication. Post procedure chest x-ray is pending. Impression:Successful and uncomplicated ultrasound guided right thoracentesis. Signed: Marnie Aguilar Verified Date/Time: 04/22/2020 10:04:21 Reading Location: [address] Ultrasound Reading Room Elect ronically signed by: MARNIE AGUILAR M.D. on 04/22/2020 10:04 AMRAD, CHEST, 1 VIEW, NON [id number] 09:56:00Referring: Dr. Mohsen Padron for exam:- >s/p right thoraShould this be performed at the bedside?->YesFINAL REPORT CLINICAL HISTORY: s/p right thora TECHNIQUE: 1 view of the chest. COMPARISON: 04/01/2020 IMPRESSION: There is a questionable small right apical pneumothorax, although a similar upper lung field linear opacity was seen on the prior exam, making this possibly related to other soft tissue markings. However, attention on follow-up is recommended. There is a small rightpleural effusion. There are no focal infiltrates. The heart is not enlarged. Signed: Brit Rodriguez Verified Date/Time: 04/22/2020 09:56:12 Reading Location: [facility] Radiology Reading Room COMPREHENSIVE METABOLIC PANEL 2020-04-06 13:47:00 Test Item Value Reference Range Interpretation Comments TOTAL PROTEIN 8.3 gm/dL 6.0-8.3 (BEAKER) (test code = 770) ALBUMIN (BEAKER) 3.7 g/dL 3.5-5.0 (test code = 1145) ALKALINE PHOSPHATASE 104 U/L 40-150 (BEAKER) (test code = 346) BILIRUBIN TOTAL 1.2 mg/dL 0.2-1.2 (BEAKER) (test code = 377) SODIUM (BEAKER) (test 135 meq/L 136-145 L code = 381) POTASSIUM (BEAKER) 4.9 meq/L 3.5-5.1 (test code = 379) CHLORIDE (BEAKER) 102 meq/L 98-107 (test code = 382) CO2 (BEAKER) (test 29 meq/L 22-29 code = 355) BLOOD UREA NITROGEN 17 mg/dL 7-21 (BEAKER) (test code = 354) CREATININE (BEAKER) 1.23 mg/dL 0.57-1.25 (test code = 358) GLUCOSE RANDOM 234 mg/dL 70-105 H (BEAKER) (test code = 652) CALCIUM (BEAKER) 9.4 mg/dL 8.4-10.2 (test code = 697) AST (SGOT) (BEAKER) 22 U/L 5-34 (test code = 353) ALT (SGPT) (BEAKER) 15 U/L 6-55 (test code = 347) EGFR (BEAKER) (test 43 mL/min/1.73 ESTIMA KIANNA GFR IS code = 1092) sq m NOT ACCURATE CREATININE CLEARANCE IN PREDICTING GLOMERULAR FILTRATION RATE . ESTIMATED GFR I S NOT APPLICABLE FOR DIALYSIS PATIEN TS. Polymerization Helper ID - BETHANY EBILIRUBIN, [id number] 13:47:00 Test Item Value Reference Range Interpretation Comments BILIRUBIN DIRECT (BEAKER) (test 0.6 mg/dL 0.1-0.5 H code = 706) Polymerization Helper ID - BETHANY EPROTHROMBIN TIME/[id number] 13:35:00 Test Item Value Reference Range Interpretation Comments PROTIME (BEAKER) (test code = 16.0 seconds 11.9-14.2 H 759) INR (BEAKER) (test code = 370) 1.3 <=5.9 Effective 04/09/2019: PT Reference Range ChangeNew: 11.9-14.2 Previous: 11.7- 14.7RECOMMENDED COUMADIN/WARFARIN INR THERAPY RANGESSTANDARD DOSE: 2.0-3.0 Includes: PROPHYLAXIS for venous thrombosis, systemic embolization; TREATMENT for venous thrombosis and/or pulmonary embolus.HIGH RISK: Target INR is2.5-3.5 for patients wiht mechanical heart valves.CBC W/PLT COUNT & AUTO [id number] 13:25:00 Test Item Value Reference Range Interpretation Comments WHITE BLOOD CELL COUNT (BEAKER) 3.9 K/ L 3.5-10.5 (test code = 775) RED BLOOD CELL COUNT (BEAKER) 3.42 M/ L 3.93-5.22 L (test code = 761) HEMOGLOBIN (BEAKER) (test code = 9.8 GM/DL 11.2-15.7 L 410) HEMATOCRIT (BEAKER) (test code = 30.4 % 34.1-44.9 L 411) MEAN CORPUSCULAR VOLUME (BEAKER) 88.9 fL 79.4-94.8 (test code = 753) MEAN CORPUSCULAR HEMOGLOBIN 28.7 pg 25.6-32.2 (BEAKER) (test code = 751) MEAN CORPUSCULAR HEMOGLOBIN CONC 32.2 GM/DL 32.2-35.5 (BEAKER) (test code = 752) RED CELL DISTRIBUTION WIDTH 15.4 % 11.7-14.4 H (BEAKER) (test code = 412) PLATELET COUNT (BEAKER) (test code 70 K/CU MM 150-450 L = 756) MEAN PLATELET VOLUME (BEAKER) 11.3 fL 9.4-12.3 (test code = 754) NUCLEATED RED BLOOD CELLS (BEAKER) 0 /100 WBC 0-0 (test code = 413) NEUTROPHILS RELATIVE PERCENT 83 % (BEAKER) (test code = 429) LYMPHOCYTES RELATIVE PERCENT 8 % (BEAKER) (test code = 430) MONOCYTES RELATIVE PERCENT 7 % (BEAKER) (test code = 431) EOSINOPHILS RELATIVE PERCENT 1 % (BEAKER) (test code = 432) BASOPHILS RELATIVE PERCENT 0 % (BEAKER) (test code = 437) NEUTROPHILS ABSOLUTE COUNT 3.20 K/ L 1.56-6.13 (BEAKER) (test code = 670) LYMPHOCYTES ABSOLUTE COUNT 0.32 K/ L 1.18-3.74 L (BEAKER) (test code = 414) MONOCYTES ABSOLUTE COUNT (BEAKER) 0.27 K/ L 0.24-0.36 (test code = 415) EOSINOPHILS ABSOLUTE COUNT 0.05 K/ L 0.04-0.36 (BEAKER) (test code = 416) BASOPHILS ABSOLUTE COUNT (BEAKER) 0.01 K/ L 0.01-0.08 (test code = 417) IMMATURE GRANULOCYTES-RELATIVE 0 % 0-1 PERCENT (BEAKER) (test code = 2801) Body fluid culture + gram [id number] 11:24:00 Test Item Value Reference Range Interpretation Comments Result (test code = 6463-4) No growth Gram Stain Result (test No organisms seen code = 1123) [facility] [id number] 11:24:00 Test Item Value Reference Range Interpretation Comments CULTURE (BEAKER) (test No growth code = 1095) GRAM STAIN RESULT 1+ White blood cells (BEAKER) (test code = seen 1123) GRAM STAIN RESULT No organisms seen (BEAKER) (test code = 69808) U/S, [id number] 10:05:00Referring: Dr. Mohsen Dillarddminister 200 mL of albumin 25% (50 grams) IV x1 after thoracentesis if 3 or more liters removed.Send pleural fluid for cell count and differential.Administer 200 mL of albumin 25% (50 grams) IV x1 after thoracentesis if 3 or more liters removed.Send pleural fluid for cell count and differential.Laterality?- >RightSpecimen to be collected:->pleural fluidLabs to be Ordered:->Body Fluid Culture (w/Gram Stain, C\\T\\S)Reason for Exam:->CT showed moderate to large pleural effusionFINAL REPORT Exam: Ultrasound guided thoracentesis Clinical History: Right-sided Pleural Effusion Manager Laboratory: Shasha Hall PA-C Consent: Benefits and risks were explained to the patient who gave consent to the procedure. Complication: None Immediate Procedure: Thepatient was placed in sitting position. The right posterior chest was prepped and draped in usual sterile fashion. 2% lidocaine was used as local anesthetic. Under ultrasound guidance, a thoracentesis catheter was inserted into the pleural cavity. Approximately 1400 cc of clear yellow pleural fluid was aspirated. The catheter was removed. The specimen was sent to the laboratory for further analysis. The patient tolerated the procedure well without any adverse reaction. A STAT chest x-ray was ordered. The patient left the department in stable condition. Impression: Ultrasound guided right sided thoracentesis. Signed: Brennan Ramirez MDReport Verified Date/Time: 04/02/2020 10:05:14 Reading Location:[address] Ultrasound Reading Room BODY FLUID CELL COUNT WITH [id number] 19:12:00 Test Item Value Reference Range Interpretation Comments APPEARANCE FLUID (BEAKER) Slightly Hazy Clear A (test code = 510) COLOR FLUID (BEAKER) (test Yellow Colorless, Straw A code = 511) RBC FLUID (BEAKER) (test code 620 /cu mm <=1 H = 513) ADJUSTED WBC FLUID (BEAKER) 158 /cu mm <=5 H (test code = 1691) LINING CELLS (BEAKER) (test 2 /cu mm <=1 H code = 1590) NEUTROPHILS FLUID (BEAKER) 8 % (test code = 1656) LYMPHS FLUID (BEAKER) (test 14 % code = 488) MONO/MACROPHAGE FLUID (BEAKER) 78 % (test code = 489) EOSINOPHILS FLUID (BEAKER) 0 % (test code = 491) BASO FLUID (BEAKER) (test code 0 % = 492) CONTAINER BODY FLUID (BEAKER) EDTA Tube (test code = 2873) RAD, CHEST, 1 VIEW, NON [id number] 17:29:00Referring: Dr. Mohsen Padron for exam:->post right sided thoracentesisShould this be perfor med at the bedside?->YesFINAL REPORT Chest, one view. HISTORY: post right sided thoracentesis COMPARISON: Multiple prior chest radiographs IMPRESSION: There is a trace residual right pleural effusion.There is a more dense line in the right upper lung. However, this is similar to the examination from02/18/2019, and lung markings extend all the way to the periphery. This is unlikely to be a pneumothorax. There is mild right basilar atelectasis. The lungs are otherwise clear. The cardiac silhouette isnormal in size. No acute bony abnormality. Likely endoscopy clips in the upper abdomen. Signed: Jeb Lopez MDReport Verified Date/Time: 04/01/2020 17:29:43 Reading Location: [address] Radiology Reading Room [id number] 14:34:00 Test Item Value Reference Range Interpretation Comments PARTIAL THROMBOPLASTIN TIME 32.6 seconds 22.5-36.0 (BEAKER) (test code = 760) CBC W/PLT COUNT & AUTO [id number] 14:34:00 Test Item Value Reference Range Interpretation Comments WHITE BLOOD CELL COUNT (BEAKER) 2.8 K/ L 3.5-10.5 L (test code = 775) RED BLOOD CELL COUNT (BEAKER) 2.97 M/ L 3.93-5.22 L (test code = 761) HEMOGLOBIN (BEAKER) (test code = 8.9 GM/DL 11.2-15.7 L 410) HEMATOCRIT (BEAKER) (test code = 26.8 % 34.1-44.9 L 411) MEAN CORPUSCULAR VOLUME (BEAKER) 90.2 fL 79.4-94.8 (test code = 753) MEAN CORPUSCULAR HEMOGLOBIN 30.0 pg 25.6-32.2 (BEAKER) (test code = 751) MEAN CORPUSCULAR HEMOGLOBIN CONC 33.2 GM/DL 32.2-35.5 (BEAKER) (test code = 752) RED CELL DISTRIBUTION WIDTH 15.1 % 11.7-14.4 H (BEAKER) (test code = 412) PLATELET COUNT (BEAKER) (test code 62 K/CU MM 150-450 L = 756) MEAN PLATELET VOLUME (BEAKER) 10.8 fL 9.4-12.3 (test code = 754) NUCLEATED RED BLOOD CELLS (BEAKER) 0 /100 WBC 0-0 (test code = 413) NEUTROPHILS RELATIVE PERCENT 80 % (BEAKER) (test code = 429) LYMPHOCYTES RELATIVE PERCENT 10 % (BEAKER) (test code = 430) MONOCYTES RELATIVE PERCENT 8 % (BEAKER) (test code = 431) EOSINOPHILS RELATIVE PERCENT 1 % (BEAKER) (test code = 432) BASOPHILS RELATIVE PERCENT 1 % (BEAKER) (test code = 437) NEUTROPHILS ABSOLUTE COUNT 2.23 K/ L 1.56-6.13 (BEAKER) (test code = 670) LYMPHOCYTES ABSOLUTE COUNT 0.27 K/ L 1.18-3.74 L (BEAKER) (test code = 414) MONOCYTES ABSOLUTE COUNT (BEAKER) 0.23 K/ L 0.24-0.36 L (test code = 415) EOSINOPHILS ABSOLUTE COUNT 0.03 K/ L 0.04-0.36 L (BEAKER) (test code = 416) BASOPHILS ABSOLUTE COUNT (BEAKER) 0.02 K/ L 0.01-0.08 (test code = 417) IMMATURE GRANULOCYTES-RELATIVE 0 % 0-1 PERCENT (BEAKER) (test code = 2801) PROTHROMBIN [id number] 14:33:00 Test Item Value Reference Range Interpretation Comments PROTIME (BEAKER) (test code = 16.8 seconds 11.9-14.2 H 759) INR (BEAKER) (test code = 370) 1.4 <=5.9 Effective 04/09/2019: PT Reference Range ChangeNew: 11.9-14.2 Previous: 11.7- 14.7RECOMMENDED COUMADIN/WARFARIN INR THERAPY RANGESSTANDARD DOSE: 2.0-3.0 Includes: PROPHYLAXIS for venous thrombosis, systemic embolization; TREATMENT for venous thrombosis and/or pulmonary embolus.HIGH RISK: Target INR is2.5-3.5 for patients wiht mechanical heart valves.CT, ABDOMEN, [id number] 13:48:00Referring: Dr. Mohsen Renee Prctocol-Triple PhaseFINAL REPORT ABDOMINAL CT DATED 03/23/2020 COMPARISON: November 28, 2019 CLINICAL INFORMATION: liver lesion, cirrhosis, TECHNIQUE: Axial images of the abdomen were obtained fromdiaphragm to the upper pelvis with and without intravenous contrast. This exam was performed according to our departmental dose-optimization program, which includes automated exposure control, adjustment of the mA and/or kV according to patient size and/or use of interactive reconstruction technique. COMMENT: Moderate to large right pleural effusion is present. Liver is cirrhotic in appearance with irregular margins. A 1.9 cm cyst is seen in the segment 8 of the liver. A stable 0.7 x 1.1 cm early enhancing lesion seen in the peripheral segment 5 of the liver with delayed washout suggestive of hepatocellular carcinoma. No other lesion seen in the liver. Spleen is enlarged measuring 14.2 x 5.8 x 12.1 cm. The splenic, superior mesenteric, portal, and hepatic veins are patent. Main portal vein measures 1.2 cm in diameter. No portal vein thrombosis is seen. 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 Gallbladder is surgically absent. No biliary dilatation is noted. Pancreas and adrenals are unremarkable. Both kidneys are normal in size and functioning with promptbilateral excretion. No hydronephrosis, solid or cystic mass is seen in either kidney. Diverticular disease is seen in the large bowel without diverticulitis. The small bowel and appendix are normal incaliber. Small amount of ascites is seen in the abdomen. There is diffusely increased attenuation inthe mesentery and omentum suggestive edema. IMPRESSION: 1. Right pleural effusion.2. Cirrhosis withsplenomegaly and portal hypertension.3. Stable suspicious mass in the segment 5 of the liver.4. Ascites and mesenteric edema. Signed: Isidro Vega MDReport Verified Date/Time: 03/23/2020 13:48:23 Reading Location: [facility] C0Y CT Body Reading Room Electronically signed by: ISIDRO VEGA M.D. on 01:48 PMCT abdomen with and without contrast liver prctocol-triple [id number] 13:48:00Interface, External Ris In - 03/23/2020 1:50 PM CDTFINAL REPORT ABDOMINAL CT DATED 03/23/2020 COMPARISON: November 28, 2019 CLINICAL INFORMATION: liver lesion, cirrhosis, TECHNIQUE: Axial images of the abdomen were obtained from diaphragm to the upper pelvis with and without intravenous contrast. This exam was performed according to our departmental dose-optimization program, which includes automated exposure control, adjustment of the mA and/or kV according to patient size and/or use of interactive reconstruction technique. COMMENT: Moderate to large right pleural effusion is present. Liver is cirrhotic in appearance with irregular margins. A 1.9 cm cyst is seen in the segment 8 of the liver. A stable 0.7 x 1.1 cm early enhancing lesion seen in the peripheral segment 5 of the liver with delayed washout suggestive of hepatocellular carcinoma. No other lesion seen inthe liver. Spleen is enlarged measuring 14.2 x 5.8 x 12.1 cm. The splenic, superior mesenteric, portal, and hepatic veins are patent. Main portal vein measures 1.2 cm in diameter. No portal vein thrombosis is seen. 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 Gallbladder is surgically absent. No biliary dilatation is noted. Pancreas and adrenals are unremarkable. Both kidneys are normal in size and functioning with prompt bilateral excretion. No hydronephrosis, solid orcystic mass is seen in either kidney. Diverticular disease is seen in the large bowel without diverticulitis. The small bowel and appendix are normal in caliber. Small amount of ascites is seen in the abdomen. There is diffusely increased attenuation in the mesentery and omentum suggestive edema. IMPRESSION: 1. Right pleural effusion.2. Cirrhosis with splenomegaly and portal hypertension.3. Stable suspicious mass in the segment 5 of the liver.4. Ascites and mesenteric edema. Signed: Isidro Vega port Verified Date/Time: 03/23/2020 13:48:23 Reading Location: [address] Body Reading Room [facility]-[id number] 12:30:00 Test Item Value Reference Range Interpretation Comments POC-Creatinine (test 1.1 mg/dL 0.6-1.3 : TESTE D AT [facility] 6720 code = 1859) [facility], [id number]: Polymerization Helper/Techni anuj ID = [id number] for Gladis Mijares POC-EGFR (test code 49 mL/min/1.73M2 = 1860) [facility]-[id number] 12:30:00 Test Item Value Reference Range Interpretation Comments POC-CREATININE 1.1 mg/dL 0.6-1.3 : TESTED AT [facility] (BEAKER) (test [address] [facility] code = 1859) [place], [address]: Polymerization Helper/Techni anuj ID = [id number] for Gladis Neri POC-EGFR (BEAKER) 49 mL/min/1.73M2 (test code = 1860) U/S, ABDOMINAL, [id number] 15:55:00Referring: Dr. Mohsen Gastelum LIMIT PARACENTESIS to 5* LITERS Administer 200 mL of albumin 25% (50 grams) IV x1 after paracentesis if 3 or more liters removed. Send ascitic fluid for cell count and differential. Labs to be ordered:->Other (please add comment) Reason for Exam:->ascites Location: For [place] Only[facility] History: Ascites. PROCEDURE: Limited sonographic examination of the abdomen was performed in preparation for planned ultrasound-guided paracentesis. Limited sonographic examination of the abdomen showed only a trace amount of fluid, primarily in the right upper quadrant. Therefore, paracentesis was not performed. IMPRESSION: 1. Trace ascites, not enough for plannedparacentesis. Signed: Mima Reyes [facility] Verified Date/Time: 01/16/2020 15:55:54 Reading Location: [address] Ultrasound Reading Room CBC W/PLT COUNT & AUTO [id number] 09:18:00 Test Item Value Reference Range Interpretation Comments WHITE BLOOD CELL COUNT (BEAKER) 3.9 K/ L 3.5-10.5 (test code = 775) RED BLOOD CELL COUNT (BEAKER) 3.54 M/ L 3.93-5.22 L (test code = 761) HEMOGLOBIN (BEAKER) (test code = 9.7 GM/DL 11.2-15.7 L 410) HEMATOCRIT (BEAKER) (test code = 30.6 % 34.1-44.9 L 411) MEAN CORPUSCULAR VOLUME (BEAKER) 86.4 fL 79.4-94.8 (test code = 753) MEAN CORPUSCULAR HEMOGLOBIN 27.4 pg 25.6-32.2 (BEAKER) (test code = 751) MEAN CORPUSCULAR HEMOGLOBIN CONC 31.7 GM/DL 32.2-35.5 L (BEAKER) (test code = 752) RED CELL DISTRIBUTION WIDTH 19.1 % 11.7-14.4 H (BEAKER) (test code = 412) PLATELET COUNT (BEAKER) (test code 68 K/CU MM 150-450 L = 756) MEAN PLATELET VOLUME (BEAKER) 10.7 fL 9.4-12.3 (test code = 754) NUCLEATED RED BLOOD CELLS (BEAKER) 0 /100 WBC 0-0 (test code = 413) NEUTROPHILS RELATIVE PERCENT 86 % (BEAKER) (test code = 429) LYMPHOCYTES RELATIVE PERCENT 6 % (BEAKER) (test code = 430) MONOCYTES RELATIVE PERCENT 7 % (BEAKER) (test code = 431) EOSINOPHILS RELATIVE PERCENT 1 % (BEAKER) (test code = 432) BASOPHILS RELATIVE PERCENT 0 % (BEAKER) (test code = 437) NEUTROPHILS ABSOLUTE COUNT 3.32 K/ L 1.56-6.13 (BEAKER) (test code = 670) LYMPHOCYTES ABSOLUTE COUNT 0.22 K/ L 1.18-3.74 L (BEAKER) (test code = 414) MONOCYTES ABSOLUTE COUNT (BEAKER) 0.28 K/ L 0.24-0.36 (test code = 415) EOSINOPHILS ABSOLUTE COUNT 0.02 K/ L 0.04-0.36 L (BEAKER) (test code = 416) BASOPHILS ABSOLUTE COUNT (BEAKER) 0.01 K/ L 0.01-0.08 (test code = 417) IMMATURE GRANULOCYTES-RELATIVE 0 % 0-1 PERCENT (BEAKER) (test code = 2801) PROTHROMBIN [id number] 09:03:00 Test Item Value Reference Range Interpretation Comments PROTIME (BEAKER) (test code = 16.5 seconds 11.9-14.2 H 759) INR (BEAKER) (test code = 370) 1.4 <=5.9 Effective 04/09/2019: PT Reference Range ChangeNew: 11.9-14.2 Previous: 11.7- 14.7RECOMMENDED COUMADIN/WARFARIN INR THERAPY RANGESSTANDARD DOSE: 2.0-3.0 Includes: PROPHYLAXIS for venous thrombosis, systemic embolization; TREATMENT for venous thrombosis and/or pulmonary embolus.HIGH RISK: Target INR is2.5-3.5 for patients wiht mechanical heart valves.BODY FLUID CULTURE + GRAM STAIN 2019-11-29 14:27:00 Test Item Value Reference Range Interpretation Comments CULTURE (BEAKER) (test No growth code = 1095) GRAM STAIN RESULT 1+ White blood cells (BEAKER) (test code = seen 1123) GRAM STAIN RESULT No organisms seen (BEAKER) (test code = 94356) POCT-GLUCOSE [id number] 11:58:00 Test Item Value Reference Range Interpretation Comments POC-GLUCOSE METER 157 mg/dL 70-110 H : TESTED A T [facility] (BEAKER) (test code = [place], 1538) [address]: Polymerization Helper/Techni anuj ID = [id number] for MANUEL SOW CBC W/PLT COUNT & AUTO [id number] 08:21:00 Test Item Value Reference Range Interpretation Comments WHITE BLOOD CELL COUNT (BEAKER) 3.5 K/ L 3.5-10.5 (test code = 775) RED BLOOD CELL COUNT (BEAKER) 3.40 M/ L 3.93-5.22 L (test code = 761) HEMOGLOBIN (BEAKER) (test code = 8.2 GM/DL 11.2-15.7 L 410) HEMATOCRIT (BEAKER) (test code = 26.3 % 34.1-44.9 L 411) MEAN CORPUSCULAR VOLUME (BEAKER) 77.4 fL 79.4-94.8 L (test code = 753) MEAN CORPUSCULAR HEMOGLOBIN 24.1 pg 25.6-32.2 L (BEAKER) (test code = 751) MEAN CORPUSCULAR HEMOGLOBIN CONC 31.2 GM/DL 32.2-35.5 L (BEAKER) (test code = 752) RED CELL DISTRIBUTION WIDTH 17.2 % 11.7-14.4 H (BEAKER) (test code = 412) PLATELET COUNT (BEAKER) (test code 82 K/CU MM 150-450 L = 756) MEAN PLATELET VOLUME (BEAKER) 10.9 fL 9.4-12.3 (test code = 754) NUCLEATED RED BLOOD CELLS (BEAKER) 0 /100 WBC 0-0 (test code = 413) (CELLAVISION MANUAL DIFF)2019-11-29 08:21:00 Test Item Value Reference Range Interpretation Comments NEUTROPHILS - REL 85 % (CELLAVISION)(BEAKER) (test code = 2816) LYMPHOCYTES - REL 8 % (CELLAVISION)(BEAKER) (test code = 2817) MONOCYTES - REL 4 % (CELLAVISION)(BEAKER) (test code = 2818) EOSINOPHILS - REL 3 % (CELLAVISION)(BEAKER) (test code = 2819) NEUTROPHILS - ABS 2.98 K/ul 1.56-6.13 (CELLAVISION)(BEAKER) (test code = 2830) LYMPHOCYTES - ABS 0.28 K/ul 1.18-3.74 L (CELLAVISION)(BEAKER) (test code = 2831) MONOCYTES - ABS 0.14 K/uL 0.24-0.36 L (CELLAVISION)(BEAKER) (test code = 2832) EOSINOPHILS - ABS 0.11 K/uL 0.04-0.36 (CELLAVISION)(BEAKER) (test code = 2834) TOTAL COUNTED (BEAKER) (test code = 100 1351) SMUDGE CELLS (BEAKER) (test code = Present 1371) GIANT PLATELETS (BEAKER) (test code Present = 313) ANISOCYTOSIS (BEAKER) (test code = 1+ few 961) POIKILOCYTES (BEAKER) (test code = 1+ few 966) SCHISTOCYTES (BEAKER) (test code = 1+ few 765) PLATELET CONCENTRATION Decreased (CELLAVISION)(BEAKER) (test code = 3438) Polymerization Helper ID - Og Sanders comments: Slide comments:POCT-GLUCOSE [id number] 07:55:00 Test Item Value Reference Range Interpretation Comments POC-GLUCOSE METER 122 mg/dL 70-110 H : TESTED A T [facility] (BEAKER) (test code = [place], 1538) [address]: Polymerization Helper/Techni anuj ID = [id number] for MANUEL SOW ALPHA FETOPROTEIN (AFP), TUMOR [id number] 07:21:00 Test Item Value Reference Range Interpretation Comments ALPHA-FETOPROTEIN (BEAKER) (test 2.2 ng/mL <10.0 code = 1094) Polymerization Helper ID - [id number] 05:45:00 Test Item Value Reference Range Interpretation Comments MAGNESIUM (BEAKER) (test code = 1.7 mg/dL 1.6-2.6 627) Polymerization Helper ID - ADRIA MBASIC METABOLIC [id number] 05:45:00 Test Item Value Reference Range Interpretation Comments SODIUM (BEAKER) 134 meq/L 136-145 L (test code = 381) POTASSIUM (BEAKER) 4.0 meq/L 3.5-5.1 (test code = 379) CHLORIDE (BEAKER) 104 meq/L 98-107 (test code = 382) CO2 (BEAKER) (test 25 meq/L 22-29 code = 355) BLOOD UREA NITROGEN 13 mg/dL 7-21 (BEAKER) (test code = 354) CREATININE (BEAKER) 0.95 mg/dL 0.57-1.25 (test code = 358) GLUCOSE RANDOM 114 mg/dL 70-105 H (BEAKER) (test code = 652) CALCIUM (BEAKER) 8.9 mg/dL 8.4-10.2 (test code = 697) EGFR (BEAKER) (test 58 mL/min/1.73 ESTIMA KIANNA GFR IS code = 1092) sq m NOT ACCURATE CREATININE CLEARANCE IN PREDICTING GLOMERULAR FILTRATION RATE . ESTIMATED GFR I S NOT APPLICABLE FOR DIALYSIS PATIEN TS. Polymerization Helper ID - ADRIA MHEPATIC FUNCTION [id number] 05:45:00 Test Item Value Reference Range Interpretation Comments TOTAL PROTEIN (BEAKER) (test code = 7.0 gm/dL 6.0-8.3 770) ALBUMIN (BEAKER) (test code = 1145) 3.4 g/dL 3.5-5.0 L BILIRUBIN TOTAL (BEAKER) (test code 0.6 mg/dL 0.2-1.2 = 377) BILIRUBIN DIRECT (BEAKER) (test 0.4 mg/dL 0.1-0.5 code = 706) ALKALINE PHOSPHATASE (BEAKER) (test 82 U/L 40-150 code = 346) AST (SGOT) (BEAKER) (test code = 13 U/L 5-34 353) ALT (SGPT) (BEAKER) (test code = 8 U/L 6-55 347) Polymerization Helper ID - ADRIA MPROTHROMBIN [id number] 05:25:00 Test Item Value Reference Range Interpretation Comments PROTIME (BEAKER) (test code = 17.0 seconds 11.9-14.2 H 759) INR (BEAKER) (test code = 370) 1.4 <=5.9 Effective 04/09/2019: PT Reference Range ChangeNew: 11.9-14.2 Previous: 11.7- 14.7RECOMMENDED COUMADIN/WARFARIN INR THERAPY RANGESSTANDARD DOSE: 2.0-3.0 Includes: PROPHYLAXIS for venous thrombosis, systemic embolization; TREATMENT for venous thrombosis and/or pulmonary embolus.HIGH RISK: Target INR is2.5-3.5 for patients wiht mechanical heart valves.POCT-GLUCOSE [id number] 20:23:00 Test Item Value Reference Range Interpretation Comments POC-GLUCOSE METER 167 mg/dL 70-110 H : TESTED A T [facility] 6720 ([employer]) (test code = [employer] [place], 1538) 605[address]: Polymerization Helper/Techni anuj ID = [id number] for ABDIEL ROME POCT-GLUCOSE [id number] 17:14:00 Test Item Value Reference Range Interpretation Comments POC-GLUCOSE METER 189 mg/dL 70-110 H : TESTED A T [facility] 6720 ([employer]) (test code = [employer] [place], 1538) 408[address]: Polymerization Helper/Techni anuj ID = [id number] for SM IT, SUMA CT, ABDOMEN, [id number] 15:03:00Referring: Dr. Mohsen MullentFINAL REPORT TECHNIQUE: CT of the abdomen WITHOUT and WITH intravenous contrast and WITHOUT oral contrast. Dose modulation, iterative reconstruction, and/or weight-based adjustment of the mA/kV was utilized to reduce the radiation dose to as low as reasonably achievable. INDICATION: 69-year-old woman with portal vein thrombus. COMPARISON: Abdomen and pelvis CT 06/11/2019. FINDINGS: LOWER THORAX: Large right pleural effusion. HEPATOBILIARY: Cirrhotic morphology of the liver. 1.1 x 0.7 cm arterially enhancing focus in the periphery of segment V with suspected washout (axial postcontrast arterial series image 60). 0.9 x 1.8 cm cyst in segment VIII. Few additional subcentimeter hypodensities in the liver are too small to characterize, but are also likely cysts. Prior cholecystectomy. No biliary ductal dilatation.SPLEEN: The spleen is prominent and measures 15 cm in the craniocaudal dimension.PANCREAS: No focal masses or ductal dilatation. ADRENALS: No adrenal nodules.KIDNEYS/URETERS: No hydronephrosis, stones, or solid mass lesions. PERITONEUM/RETROPERITONEUM: Small volume ascites. No free air.LYMPH NODES: No lymphadenopathy.VESSELS: Increased nonocclusive thrombus in the right portal vein. No significant change in nonocclusive thrombus in the main portal vein. Decreased nonocclusive thrombus in the superior mesenteric vein. Esophageal varices. Atherosclerotic vascular calcifications in the abdominal aorta without aneurysm. GI TRACT: Thickened wall of the stomach, small bowel, and right colon. No bowel obstruction. Clips in the proximal stomach. BONES AND SOFT TISSUES: Degenerative changes of the thoracic spine. Soft tissues are unremarkable. IMPRESSION:Cirrhosis withportal hypertension and small volume ascites. 1.1 cm arterially enhancing lesion in segment V, suspicious for hepatocellular carcinoma. Increased nonocclusive thrombus in the right portal vein. Decreased nonocclusive thrombus in the superior mesenteric vein. No significant change in nonocclusive thrombus in the main portal vein. Thickened wall of the stomach, small bowel, and right colon may be related to ascites and/or portal hypertension. Signed: Jr Bolanos MDReport Verified Date/Time: 11/28/2019 15:03:20 Reading Location: [address] Body Reading Room POCT-GLUCOSE [id number] 11:44:00 Test Item Value Reference Range Interpretation Comments POC-GLUCOSE METER 179 mg/dL 70-110 H : TESTED A T [facility] 6720 (BEAKER) (test code = [facility], 1538) 140[address]: Polymerization Helper/Techni anuj ID = [id number] for KYLEE LLIAMS [place]AMS [place] POCT-GLUCOSE [id number] 08:42:00 Test Item Value Reference Range Interpretation Comments POC-GLUCOSE METER 183 mg/dL 70-110 H : TESTED A T [facility] 6720 (BEAKER) (test code = [facility], 1538) 09209: Polymerization Helper/Techni anuj ID = [id number] for [place] LLIAMS, [place] [id number] 08:00:00 Test Item Value Reference Range Interpretation Comments MAGNESIUM (BEAKER) (test code = 1.7 mg/dL 1.6-2.6 627) Polymerization Helper ID - HELIOGBASIC METABOLIC [id number] 08:00:00 Test Item Value Reference Range Interpretation Comments SODIUM (BEAKER) 137 meq/L 136-145 (test code = 381) POTASSIUM (BEAKER) 3.6 meq/L 3.5-5.1 (test code = 379) CHLORIDE (BEAKER) 104 meq/L 98-107 (test code = 382) CO2 (BEAKER) (test 27 meq/L 22-29 code = 355) BLOOD UREA NITROGEN 14 mg/dL 7-21 (BEAKER) (test code = 354) CREATININE (BEAKER) 0.94 mg/dL 0.57-1.25 (test code = 358) GLUCOSE RANDOM 76 mg/dL 70-105 (BEAKER) (test code = 652) CALCIUM (BEAKER) 8.4 mg/dL 8.4-10.2 (test code = 697) EGFR (BEAKER) (test 59 mL/min/1.73 ESTIMA KIANNA GFR IS code = 1092) sq m NOT ACCURATE CREATININE CLEARANCE IN PREDICTING GLOMERULAR FILTRATION RATE . ESTIMATED GFR I S NOT APPLICABLE FOR DIALYSIS PATIEN TS. Polymerization Helper ID - HELIOGHEPATIC FUNCTION [id number] 08:00:00 Test Item Value Reference Range Interpretation Comments TOTAL PROTEIN (BEAKER) (test code = 7.3 gm/dL 6.0-8.3 770) ALBUMIN (BEAKER) (test code = 1145) 3.6 g/dL 3.5-5.0 BILIRUBIN TOTAL (BEAKER) (test code 0.8 mg/dL 0.2-1.2 = 377) BILIRUBIN DIRECT (BEAKER) (test 0.5 mg/dL 0.1-0.5 code = 706) ALKALINE PHOSPHATASE (BEAKER) (test 75 U/L 40-150 code = 346) AST (SGOT) (BEAKER) (test code = 14 U/L 5-34 353) ALT (SGPT) (BEAKER) (test code = 7 U/L 6-55 347) Polymerization Helper ID - HELIOGPROTHROMBIN [id number] 06:18:00 Test Item Value Reference Range Interpretation Comments PROTIME (BEAKER) (test code = 18.3 seconds 11.9-14.2 H 759) INR (BEAKER) (test code = 370) 1.6 <=5.9 Effective 04/09/2019: PT Reference Range ChangeNew: 11.9-14.2 Previous: 11.7- 14.7RECOMMENDED COUMADIN/WARFARIN INR THERAPY RANGESSTANDARD DOSE: 2.0-3.0 Includes: PROPHYLAXIS for venous thrombosis, systemic embolization; TREATMENT for venous thrombosis and/or pulmonary embolus.HIGH RISK: Target INR is2.5-3.5 for patients wiht mechanical heart valves.CBC W/PLT COUNT & AUTO [id number] 06:14:00 Test Item Value Reference Range Interpretation Comments WHITE BLOOD CELL COUNT (BEAKER) 3.8 K/ L 3.5-10.5 (test code = 775) RED BLOOD CELL COUNT (BEAKER) 3.35 M/ L 3.93-5.22 L (test code = 761) HEMOGLOBIN (BEAKER) (test code = 8.2 GM/DL 11.2-15.7 L 410) HEMATOCRIT (BEAKER) (test code = 25.8 % 34.1-44.9 L 411) MEAN CORPUSCULAR VOLUME (BEAKER) 77.0 fL 79.4-94.8 L (test code = 753) MEAN CORPUSCULAR HEMOGLOBIN 24.5 pg 25.6-32.2 L (BEAKER) (test code = 751) MEAN CORPUSCULAR HEMOGLOBIN CONC 31.8 GM/DL 32.2-35.5 L (BEAKER) (test code = 752) RED CELL DISTRIBUTION WIDTH 17.2 % 11.7-14.4 H (BEAKER) (test code = 412) PLATELET COUNT (BEAKER) (test code 77 K/CU MM 150-450 L = 756) MEAN PLATELET VOLUME (BEAKER) 11.5 fL 9.4-12.3 (test code = 754) NUCLEATED RED BLOOD CELLS (BEAKER) 0 /100 WBC 0-0 (test code = 413) NEUTROPHILS RELATIVE PERCENT 78 % (BEAKER) (test code = 429) LYMPHOCYTES RELATIVE PERCENT 10 % (BEAKER) (test code = 430) MONOCYTES RELATIVE PERCENT 10 % (BEAKER) (test code = 431) EOSINOPHILS RELATIVE PERCENT 1 % (BEAKER) (test code = 432) BASOPHILS RELATIVE PERCENT 1 % (BEAKER) (test code = 437) NEUTROPHILS ABSOLUTE COUNT 2.98 K/ L 1.56-6.13 (BEAKER) (test code = 670) LYMPHOCYTES ABSOLUTE COUNT 0.38 K/ L 1.18-3.74 L (BEAKER) (test code = 414) MONOCYTES ABSOLUTE COUNT (BEAKER) 0.40 K/ L 0.24-0.36 H (test code = 415) EOSINOPHILS ABSOLUTE COUNT 0.03 K/ L 0.04-0.36 L (BEAKER) (test code = 416) BASOPHILS ABSOLUTE COUNT (BEAKER) 0.02 K/ L 0.01-0.08 (test code = 417) IMMATURE GRANULOCYTES-RELATIVE 1 % 0-1 PERCENT (BEAKER) (test code = 2801) POCT-GLUCOSE [id number] 20:51:00 Test Item Value Reference Range Interpretation Comments POC-GLUCOSE METER 234 mg/dL 70-110 H : TESTED A T [facility]20 (BEAKER) ([facility] 1538) [address]15[address]: Polymerization Helper/Techni anuj ID = [id number] for NG O, LETTY HEMOGLOBIN [id number] 16:09:00 Test Item Value Reference Range Interpretation Comments HEMOGLOBIN A1C (BEAKER) (test code = 6.7 % 4.3-6.1 H 368) POCT-GLUCOSE [id number] 13:05:00 Test Item Value Reference Range Interpretation Comments POC-GLUCOSE METER 138 mg/dL 70-110 H : TESTED A T [facility] 6720 (BEAKER) (test code = [facility] Kris [facility], 1538) 34[address]: Polymerization Helper/Techni anuj ID = [id number] for ANTONY KEMP RAD, CHEST, 1 VIEW, NON [id number] 10:56:00Referring: Dr. Mohsen Padron for exam:->effusionShould this be performed at the bedside?-&g t;YesFINAL REPORT TECHNIQUE: Frontal chest radiograph dated 11/27/2019. CLINICAL HISTORY: Effusion COMPARISON STUDY: Chest radiograph dated 11/26/2019 IMPRESSION:Stable right pleural effusion with associated atelectasis. No pneumothorax. Cardiomediastinal silhouette is stable in appear ance. No pulmonary edema. No fracture. Signed: Minna House MDReport Verified Date/Time: 11/27/2019 10:56:02 Reading Location: [facility] Reading Room U/S, [id number] 10:32:00Referring: Dr. Mohsen Mullenaterality?- >RightReason for exam:->Right sided pleural effusion.Specimen to be collected:->Pleural fluidLabs to be Ordered:->Body Fluid Culture (w/Gram Stain, C\\T\\S)AlbuminLabs to be Ordered:->Glucose+LDH+ProteinLabs to be Ordered:->Other (please add comment)FINAL REPORT CLINICAL HISTORY: Pleural effusion, Right sided pleural effusion. COMPARISON: None JOINERY MACHINIST: Brennan Ramirez DO, JD CONTINUITY TESTER: Portions of this procedure were assisted by the resident/fellow/PA under the direct supervision of the flaker operator. ANESTHESIA: Local lidocaine. MEDICATIONS:Please see nursing note. DEVICE:5 Indonesian one-step catheter. ESTIMATED BLOOD LOSS: < 5cc SAMPLE: As below. PROCEDURE: The risks, benefits, and alternatives to the procedure were discussed with the patient/healthcare proxy. All questions were answered and written informed consent wasobtained. A universal timeout was performed prior to starting the procedure. All elements of maximal sterile barrier technique were utilized for this procedure, including utilization of sterile scrub solution for skin prep, a large sterile sheet to cover the areas of the patient that were not prepped, and hand hygiene, mask, head covering, and sterile gown for performing radiologist and scrub technologist. A limited ultrasound examination was performed of the chest, showing a right pleural effusion. After infiltrating the skin with 1 % lidocaine, a 5 Indonesian x 10 cm One-step catheter was advanced i nto the pleural space. Approximately 1.5 L of straw-colored fluid was removed. A sample was sent for analysis. The catheter was removed without immediate complication. Sterile dressing was applied. IMPRESSION: Successful ultrasound- guided diagnostic and therapeutic right thoracentesis. Signed: Brennan Ramirez MDReport Verified Date/Time: 11/27/2019 10:32:23 Reading Location: [facility] B1 P048 Angio Body Reading Room POCT-GLUCOSE [id number] 08:17:00 Test Item Value Reference Range Interpretation Comments POC-GLUCOSE METER 152 mg/dL 70-110 H : TESTED A T [facility]20 (BEAKER) (test code = [place], 1538) [address]: Polymerization Helper/Techni anuj ID = [id number] for ANTONY KEMP [id number] 07:10:00 Test Item Value Reference Range Interpretation Comments MAGNESIUM (BEAKER) (test code = 1.8 mg/dL 1.6-2.6 627) Polymerization Helper ID - ANNETTE WBASIC METABOLIC [id number] 07:10:00 Test Item Value Reference Range Interpretation Comments SODIUM (BEAKER) 135 meq/L 136-145 L (test code = 381) POTASSIUM (BEAKER) 4.2 meq/L 3.5-5.1 (test code = 379) CHLORIDE (BEAKER) 104 meq/L 98-107 (test code = 382) CO2 (BEAKER) (test 27 meq/L 22-29 code = 355) BLOOD UREA NITROGEN 12 mg/dL 7-21 (BEAKER) (test code = 354) CREATININE (BEAKER) 1.10 mg/dL 0.57-1.25 (test code = 358) GLUCOSE RANDOM 104 mg/dL 70-105 (BEAKER) (test code = 652) CALCIUM (BEAKER) 8.9 mg/dL 8.4-10.2 (test code = 697) EGFR (BEAKER) (test 49 mL/min/1.73 ESTIMA KIANNA GFR IS code = 1092) sq m NOT ACCURATE CREATININE CLEARANCE IN PREDICTING GLOMERULAR FILTRATION RATE . ESTIMATED GFR I S NOT APPLICABLE FOR DIALYSIS PATIEN TS. Polymerization Helper ID - ANNETTE WHEPATIC FUNCTION [id number] 07:10:00 Test Item Value Reference Range Interpretation Comments TOTAL PROTEIN (BEAKER) (test code = 7.4 gm/dL 6.0-8.3 770) ALBUMIN (BEAKER) (test code = 1145) 3.8 g/dL 3.5-5.0 BILIRUBIN TOTAL (BEAKER) (test code 0.8 mg/dL 0.2-1.2 = 377) BILIRUBIN DIRECT (BEAKER) (test 0.5 mg/dL 0.1-0.5 code = 706) ALKALINE PHOSPHATASE (BEAKER) (test 72 U/L 40-150 code = 346) AST (SGOT) (BEAKER) (test code = 17 U/L 5-34 353) ALT (SGPT) (BEAKER) (test code = 8 U/L 6-55 347) Polymerization Helper ID - ANNETTE WIRON, TIBC, % SAT. (WITHOUT FERRITIN)2019-11-27 06:49:00 Test Item Value Reference Range Interpretation Comments IRON (BEAKER) (test code = 547) 15.0 ug/dL 40.0-160.0 L TOTAL IRON BINDING CAPACITY 315 ug/dL 250-450 (BEAKER) (test code = 769) IRON % SATURATION (2) (BEAKER) 5 % 20-55 L (test code = 2590) Polymerization Helper ID - ANNETTE [id number] 06:35:00 Test Item Value Reference Range Interpretation Comments FERRITIN (BEAKER) (test code = 361) 20 ng/mL 5-275 Polymerization Helper ID - ANNETTE WPROTHROMBIN [id number] 05:19:00 Test Item Value Reference Range Interpretation Comments PROTIME (BEAKER) (test code = 17.6 seconds 11.9-14.2 H 759) INR (BEAKER) (test code = 370) 1.5 <=5.9 Effective 04/09/2019: PT Reference Range ChangeNew: 11.9-14.2 Previous: 11.7- 14.7RECOMMENDED COUMADIN/WARFARIN INR THERAPY RANGESSTANDARD DOSE: 2.0-3.0 Includes: PROPHYLAXIS for venous thrombosis, systemic embolization; TREATMENT for venous thrombosis and/or pulmonary embolus.HIGH RISK: Target INR is2.5-3.5 for patients wiht mechanical heart valves.CBC W/PLT COUNT & AUTO [id number] 05:17:00 Test Item Value Reference Range Interpretation Comments WHITE BLOOD CELL COUNT (BEAKER) 2.2 K/ L 3.5-10.5 L (test code = 775) RED BLOOD CELL COUNT (BEAKER) 3.22 M/ L 3.93-5.22 L (test code = 761) HEMOGLOBIN (BEAKER) (test code = 7.6 GM/DL 11.2-15.7 L 410) HEMATOCRIT (BEAKER) (test code = 25.4 % 34.1-44.9 L 411) MEAN CORPUSCULAR VOLUME (BEAKER) 78.9 fL 79.4-94.8 L (test code = 753) MEAN CORPUSCULAR HEMOGLOBIN 23.6 pg 25.6-32.2 L (BEAKER) (test code = 751) MEAN CORPUSCULAR HEMOGLOBIN CONC 29.9 GM/DL 32.2-35.5 L (BEAKER) (test code = 752) RED CELL DISTRIBUTION WIDTH 17.1 % 11.7-14.4 H (BEAKER) (test code = 412) PLATELET COUNT (BEAKER) (test code 68 K/CU MM 150-450 L = 756) MEAN PLATELET VOLUME (BEAKER) 10.4 fL 9.4-12.3 (test code = 754) NUCLEATED RED BLOOD CELLS (BEAKER) 0 /100 WBC 0-0 (test code = 413) NEUTROPHILS RELATIVE PERCENT 77 % (BEAKER) (test code = 429) LYMPHOCYTES RELATIVE PERCENT 13 % (BEAKER) (test code = 430) MONOCYTES RELATIVE PERCENT 9 % (BEAKER) (test code = 431) EOSINOPHILS RELATIVE PERCENT 1 % (BEAKER) (test code = 432) BASOPHILS RELATIVE PERCENT 0 % (BEAKER) (test code = 437) NEUTROPHILS ABSOLUTE COUNT 1.73 K/ L 1.56-6.13 (BEAKER) (test code = 670) LYMPHOCYTES ABSOLUTE COUNT 0.28 K/ L 1.18-3.74 L (BEAKER) (test code = 414) MONOCYTES ABSOLUTE COUNT (BEAKER) 0.19 K/ L 0.24-0.36 L (test code = 415) EOSINOPHILS ABSOLUTE COUNT 0.03 K/ L 0.04-0.36 L (BEAKER) (test code = 416) BASOPHILS ABSOLUTE COUNT (BEAKER) 0.01 K/ L 0.01-0.08 (test code = 417) IMMATURE GRANULOCYTES-RELATIVE 0 % 0-1 PERCENT (BEAKER) (test code = 2801) POCT-GLUCOSE [id number] 22:04:00 Test Item Value Reference Range Interpretation Comments POC-GLUCOSE METER 142 mg/dL 70-110 H : TESTED A T [facility] 6720 (BEAKER) (test code = LADARIUS HENSON ND, 1538) 14469: Polymerization Helper/Techni anuj ID = [id number] for NG O, LETTY BODY FLUID CELL COUNT WITH [id number] 20:41:00 Test Item Value Reference Range Interpretation Comments APPEARANCE FLUID (BEAKER) (test Clear Clear code = 510) COLOR FLUID (BEAKER) (test code = Straw Colorless, Straw 511) RBC FLUID (BEAKER) (test code = 69 /cu mm <=1 H 513) ADJUSTED WBC FLUID (BEAKER) (test 27 /cu mm <=5 H code = 1691) LINING CELLS (BEAKER) (test code = 0 /cu mm <=1 1590) NEUTROPHILS FLUID (BEAKER) (test 32 % code = 1656) LYMPHS FLUID (BEAKER) (test code = 30 % 488) MONO/MACROPHAGE FLUID (BEAKER) 36 % (test code = 489) EOSINOPHILS FLUID (BEAKER) (test 1 % code = 491) BASO FLUID (BEAKER) (test code = 1 % 492) CONTAINER BODY FLUID (BEAKER) EDTA Tube (test code = 2873) BODY FLUID CELL COUNT WITH [id number] 20:41:00 Test Item Value Reference Range Interpretation Comments APPEARANCE FLUID (BEAKER) (test Clear Clear code = 510) COLOR FLUID (BEAKER) (test code = Yellow Colorless, Straw A 511) RBC FLUID (BEAKER) (test code = 228 /cu mm <=1 H 513) ADJUSTED WBC FLUID (BEAKER) (test 62 /cu mm <=5 H code = 1691) LINING CELLS (BEAKER) (test code 0 /cu mm <=1 = 1590) NEUTROPHILS FLUID (BEAKER) (test 24 % code = 1656) LYMPHS FLUID (BEAKER) (test code 17 % = 488) MONO/MACROPHAGE FLUID (BEAKER) 59 % (test code = 489) EOSINOPHILS FLUID (BEAKER) (test 0 % code = 491) BASO FLUID (BEAKER) (test code = 0 % 492) CONTAINER BODY FLUID (BEAKER) EDTA Tube (test code = 2873) RAD, CHEST, 1 VIEW, NON [id number] 18:03:00Referring: Dr. Mohsen Padron for exam:->effusionShould this be performed at the bedside?-&g t;YesFINAL REPORT Chest, one view. HISTORY: effusion COMPARISON: Radiograph from 08/19/2019 IMPRESSION: A small right pleural effusion has slightly increased in size from the prior. There may be slightly improved aeration of the right middle lobe. However, some consolidation does rem ain. No pneumothorax. There is some streaky opacity over the left midlung which is likely atelectasis. Close attention on follow-up imaging is recommended. The cardiac silhouette is partially secured but normal in size and unchanged. No acute bony abnormality. Classically clips in the right upper quadrant. Clips in the left upper quadrant are likely endoscopy clips. Signed: Jeb Lopez Verified Date/Time: 11/26/2019 18:03:50 Reading Location: [address] Consult Reading Room U/S, [id number] 17:59:00Referring: Dr. Mohsen Padron for exam:->abd painShould this be performed at the bedside?->NoFINAL REPORT Paracentesis dated 11/26/2019 Procedure: Ultrasound-guided paracentesis. Preprocedure diagnosis: Ascites Postprocedure diagnosis: Ascites Conscious sedation: None. Radiologist: Isidro Vega M.D. Social Welfare Administrator: None Anesthesia: 1% Xylocaine mixed with sodium bicarbonate local anesthesia. Technique: After obtaining informed consent, ultrasound-guided paracentesis was performed under usual sterile technique. Using a 5 ugandan drainage catheter, puncture was made in the right lower quadrant abdomen. Approximately 3400 cc of clear yellowish fluid was removed. Patient tolerated the procedure well without complication. Complication: None Graft/Implant: None Estimated Blood Loss: None Impression: Ultrasound-guided paracentesis. Signed: Isidro Vega Verified Date/Time: 11/26/2019 17:59:17 Reading Location: [facility] [id number] CT Body Reading Room LACTATE DEHYDROGENASE (LDH)2019-11-26 17:50:00 Test Item Value Reference Range Interpretation Comments LACTATE DEHYDROGENASE (BEAKER) (test 279 U/L 125-220 H code = 635) Polymerization Helper ID - CESAR FHEPATIC FUNCTION [id number] 17:50:00 Test Item Value Reference Range Interpretation Comments TOTAL PROTEIN (BEAKER) (test code = 7.6 gm/dL 6.0-8.3 770) ALBUMIN (BEAKER) (test code = 1145) 3.3 g/dL 3.5-5.0 L BILIRUBIN TOTAL (BEAKER) (test code 0.7 mg/dL 0.2-1.2 = 377) BILIRUBIN DIRECT (BEAKER) (test 0.4 mg/dL 0.1-0.5 code = 706) ALKALINE PHOSPHATASE (BEAKER) (test 81 U/L 40-150 code = 346) AST (SGOT) (BEAKER) (test code = 21 U/L 5-34 353) ALT (SGPT) (BEAKER) (test code = 11 U/L 6-55 347) Polymerization Helper ID - CESAR FURINALYSIS W/ [id number] 15:07:00 Test Item Value Reference Range Interpretation Comments COLOR (BEAKER) (test code = 470) Light Yellow CLARITY (BEAKER) (test code = Clear 469) SPECIFIC GRAVITY UA (BEAKER) 1.004 1.001-1.035 (test code = 468) PH UA (BEAKER) (test code = 467) 6.5 5.0-8.0 PROTEIN UA (BEAKER) (test code = Negative Negative 464) GLUCOSE UA (BEAKER) (test code = Negative Negative 365) KETONES UA (BEAKER) (test code = Negative Negative 371) BILIRUBIN UA (BEAKER) (test code Negative Negative = 462) BLOOD UA (BEAKER) (test code = Trace Negative A 461) NITRITE UA (BEAKER) (test code = Negative Negative 465) LEUKOCYTE ESTERASE UA (BEAKER) Small Negative A (test code = 466) UROBILINOGEN UA (BEAKER) (test 0.2 mg/dL 0.2-1.0 code = 463) RBC UA (BEAKER) (test code = 0-2/HPF 519) WBC UA (BEAKER) (test code = 0-2/HPF 520) SQUAMOUS EPITHELIAL (BEAKER) FEW (test code = 516) SOURCE(BEAKER) (test code = 2795) Polymerization Helper ID - [auto][id number] 11:07:00 Test Item Value Reference Range Interpretation Comments PROTIME (MALU) (test code = 16.6 seconds 11.9-14.2 H 759) INR (MALU) (test code = 370) 1.4 <=5.9 PARTIAL THROMBOPLASTIN TIME 37.8 seconds 22.5-36.0 H (MALU) (test code = 760) Effective 04/09/2019: PT Reference Range ChangeNew: 11.9-14.2 Previous: 11.7- 14.7RECOMMENDED COUMADIN/WARFARIN INR THERAPY RANGESSTANDARD DOSE: 2.0-3.0 Includes: PROPHYLAXIS for venous thrombosis, systemic embolization; TREATMENT for venous thrombosis and/or pulmonary embolus.HIGH RISK: Target INR is2.5-3.5 for patients wiht mechanical heart valves.CT, [id number] 11:02:00 Referring: Dr. Mohsen Hernandez REPORT CT scan of the abdomen and pelvis. MEDICAL HISTORY: Abdominal pain, nonlocalized. COMPARISON STUDY: August 14, 2020. TECHNIQUE: Contiguous helical slices were acquired through the abdomen and pelvis without the administration of contrast. This exam was performed according to our department dose optimization program which includes automated exposure control, adjustment of the mA and/or kV according to the patient's size and/or use of iterative reconstruction technique. FINDINGS: There is a moderate to large right-sided pleural effusion with adjacent atelectasis orconsolidation, larger than on previous. The left lung is clear. The abdomen and pelvis are limited by lack of contrast. The liver is nodular and cirrhotic in appearance. A 1.7 x 1.9 cm cyst is seen in the region of the midline. Cholecystectomy clips are seen with no biliary dilatation. The spleen is enlarged measuring 13.4 cm in AP diameter. The pancreas, adrenal glands and kidneys are unremarkable. Some calcifications are seen along the portal vein that could be related to chronic portal venous hypertension although lack of contrast limits assessment. No dilated loops of bowel are seen to suggest o bstruction. Some bowel wall thickening is seen. This could be related to a low albumin state. A moderate amount of ascites is seen. Diffuse anasarca is noted. No evidence of appendicitis is noted. Clips are seen in the stomach. Bilateral fluid containing inguinal hernias are seen measuring up to 10.6 x 6.4 cm on the right side and 9.4 x 4.6 cm on the left side. Bone windows demonstrate degenerative changes. IMPRESSION:1. Moderate to large right-sided pleural effusion with adjacent atelectasis or consolidation, larger than on previous.2. Moderate ascites and diffuse anasarca.3. Bilateral fluid containing inguinal hernias, also larger than on previous although no bowel are seen in the right- sided hernia on today's study.4. Nodular, cirrhotic appearing liver with splenomegaly. Lack of contrast limits assessment.5. Status post cholecystectomy. Signed: Zach Montalvoeport Verified Date/Time: 11/26/2019 11:02:27 Reading Location: [facility] Diagnostic Imaging Reading Room - [place] [address] BASIC METABOLIC [id number] 10:59:00 Test Item Value Reference Range Interpretation Comments SODIUM (BEAKER) 134 meq/L 136-145 L (test code = 381) POTASSIUM (BEAKER) 4.3 meq/L 3.5-5.1 (test code = 379) CHLORIDE (BEAKER) 104 meq/L 98-107 (test code = 382) CO2 (BEAKER) (test 28 meq/L 22-29 code = 355) BLOOD UREA NITROGEN 11 mg/dL 7-21 (BEAKER) (test code = 354) CREATININE (BEAKER) 0.98 mg/dL 0.57-1.25 (test code = 358) GLUCOSE RANDOM 119 mg/dL 70-105 H (BEAKER) (test code = 652) CALCIUM (BEAKER) 8.7 mg/dL 8.4-10.2 (test code = 697) EGFR (BEAKER) (test 56 mL/min/1.73 ESTIMA KIANNA GFR IS code = 1092) sq m NOT ACCURATE CREATININE CLEARANCE IN PREDICTING GLOMERULAR FILTRATION RATE . ESTIMATED GFR I S NOT APPLICABLE FOR DIALYSIS PATIEN TS. Polymerization Helper ID - CESAR FCBC W/PLT COUNT & AUTO [id number] 10:45:00 Test Item Value Reference Range Interpretation Comments WHITE BLOOD CELL COUNT (BEAKER) 2.3 K/ L 3.5-10.5 L (test code = 775) RED BLOOD CELL COUNT (BEAKER) 3.62 M/ L 3.93-5.22 L (test code = 761) HEMOGLOBIN (BEAKER) (test code = 8.6 GM/DL 11.2-15.7 L 410) HEMATOCRIT (BEAKER) (test code = 28.7 % 34.1-44.9 L 411) MEAN CORPUSCULAR VOLUME (BEAKER) 79.3 fL 79.4-94.8 L (test code = 753) MEAN CORPUSCULAR HEMOGLOBIN 23.8 pg 25.6-32.2 L (BEAKER) (test code = 751) MEAN CORPUSCULAR HEMOGLOBIN CONC 30.0 GM/DL 32.2-35.5 L (BEAKER) (test code = 752) RED CELL DISTRIBUTION WIDTH 17.3 % 11.7-14.4 H (BEAKER) (test code = 412) PLATELET COUNT (BEAKER) (test code 68 K/CU MM 150-450 L = 756) MEAN PLATELET VOLUME (BEAKER) 9.5 fL 9.4-12.3 (test code = 754) NUCLEATED RED BLOOD CELLS (BEAKER) 0 /100 WBC 0-0 (test code = 413) NEUTROPHILS RELATIVE PERCENT 75 % (BEAKER) (test code = 429) LYMPHOCYTES RELATIVE PERCENT 13 % (BEAKER) (test code = 430) MONOCYTES RELATIVE PERCENT 9 % (BEAKER) (test code = 431) EOSINOPHILS RELATIVE PERCENT 2 % (BEAKER) (test code = 432) BASOPHILS RELATIVE PERCENT 1 % (BEAKER) (test code = 437) NEUTROPHILS ABSOLUTE COUNT 1.75 K/ L 1.56-6.13 (BEAKER) (test code = 670) LYMPHOCYTES ABSOLUTE COUNT 0.31 K/ L 1.18-3.74 L (BEAKER) (test code = 414) MONOCYTES ABSOLUTE COUNT (BEAKER) 0.22 K/ L 0.24-0.36 L (test code = 415) EOSINOPHILS ABSOLUTE COUNT 0.04 K/ L 0.04-0.36 (BEAKER) (test code = 416) BASOPHILS ABSOLUTE COUNT (BEAKER) 0.02 K/ L 0.01-0.08 (test code = 417) IMMATURE GRANULOCYTES-RELATIVE 0 % 0-1 PERCENT (BEAKER) (test code = 2801) U/S, [id number] 11:17:00Referring: Dr. Mohsen Dillarddminister 200 mL of albumin 25% (50 grams) IV x1 after paracentesis if3 or more liters removed.Send ascitic fluid for cell count and differential.Labs to be ordered:->Other (please add comment)Reason for Exam:->ascites, portal hypertension, cirrhosisFINAL REPORT Ultrasound guided paracentesis Clinical History: Ascites. Sedation: None. Manager Laboratory: Shasha Hall PA-C Supervising Physician: Marnie Aguilar MD Social Welfare Administrator: None. Estimated Blood Loss: < 1 mL. Specimen: 2800 mL of clear yellow fluid, samples sent to laboratory. Technique: Informed consent was obtained. The risks of pain, bleeding, infection, bowel perforation, injury to adjacent structures, and adverse medication reactions were discussed with the patient. After informed consent was obtained, the patient's abdomen was scanned. The right lower quadrant of the abdomen was selected for paracentesis. After the largest fluid pocket area was marked, and the anterior abdominal wall was evaluated with color Doppler to exclude presence of blood vessels traversing the area, the skin was prepped and draped in the usual sterile manner. After local anesthesia was achieved with lidocaine, a 5 Indonesian one-step catheter was advanced into the peritoneal cavity under ultrasound guidance. After completion of drainage, the catheter was removed. There was no evidence of complication. Impression:Successful ultrasound guided paracentesis. Signed: Marnie Major MDReport Verified Date/Time: 10/02/2019 11:17:34 Reading Location: [address] Ultrasound Reading Room U/S, ABDOMINAL, [id number] 19:03:00 Referring: Dr. Mohsen GastelumWith dopplerReason for Exam:->assess TIPS patency. Pleural effusion.cirrhosiswith dopplerFINAL REPORT TECHNIQUE: Grayscale ultrasound of the abdomen with color Doppler and spectral Doppler ultrasound of the portal/hepatic vasculature. INDICATION: 69-year-old woman with cirrhosis and pleural effusion. COMPARISON: Abdomen and pelvis CT 08/14/2019. FINDINGS: LIVER: Theliver is normal in size with coarsened echotexture and nodular contour, consistent with cirrhosis. 2.2 x 1.8 x 2 cm cyst in segment VIII. HEPATIC VASCULATURE: Main portal vein measures 1.1 cm in diameter. Portal veins are patent with normal waveform and directionality. Flow velocity in the main portalvein is within normal limits. The hepatic arteries are patent. Resistive indices in the proper and right hepatic arteries are slightly elevated at 0.8. Acceleration time in the proper hepatic artery is within normal limits. Resistive index in the left hepatic artery is within normal limits. The hepatic veins and confluence are patent. BILIARY:Gallbladder: Prior cholecystectomy.Common bile duct measures 0.6 cm, within normal limits. No intrahepatic biliary ductal dilatation. PANCREAS: Visualized portions of the pancreas are unremarkable. SPLEEN: The spleen is prominent and measures 18.4 cm. PERITONEUM: Small volume ascites. KIDNEYS: The right kidney measures 9.3 x 4.2 x 4.4 cm with cortical thickness of 0.9 cm. The left kidney measures 8.5 x 4.8 x 3.6 m with cortical thickness of 1 cm. No hydronephrosis. No sonographically evident solid mass lesion. MIDLINE VASCULATURE: The visualized inferior vena cava is patent. The maximum visualized aortic diameter is 1.6 cm. Splenic artery and vein are patent. IMPRESSION:Cirrhosis. No suspicious liver lesion. Portal and hepatic vasculature is patent. Slightly elevated resistive indices in the hepatic arteries, likely related to cirrhosis. Splenomegaly. Small volume ascites. Signed: Jr Bolanos MDReport Verified Date/Time: 10/01/2019 19:03:00 Reading Location: [address] Radiology Reading Room BODY FLUID CELL COUNT WITH [id number] 17:46:00 Test Item Value Reference Range Interpretation Comments APPEARANCE FLUID (BEAKER) Slightly Hazy Clear A (test code = 510) COLOR FLUID (BEAKER) (test Straw Colorless, Straw code = 511) RBC FLUID (BEAKER) (test code 103 /cu mm <=1 H = 513) ADJUSTED WBC FLUID (BEAKER) 82 /cu mm <=5 H (test code = 1691) LINING CELLS (BEAKER) (test 0 /cu mm <=1 code = 1590) NEUTROPHILS FLUID (BEAKER) 26 % (test code = 1656) LYMPHS FLUID (BEAKER) (test 19 % code = 488) MONO/MACROPHAGE FLUID (BEAKER) 55 % (test code = 489) EOSINOPHILS FLUID (BEAKER) 0 % (test code = 491) BASO FLUID (BEAKER) (test code 0 % = 492) CONTAINER BODY FLUID (BEAKER) EDTA Tube (test code = 2873) [id number] 12:52:00 Test Item Value Reference Range Interpretation Comments POC-CREATININE 0.8 mg/dL 0.6-1.3 TESTED AT [facility] 6720 (BEAKER) (test [place] code = 1859) [address] POC-EGFR (BEAKER) 71 mL/min/1.73M2 (test code = 1860) U/S, [id number] 15:47:00Referring: Dr. Mohsen Dillarddminister 200 mL of albumin 25% (50 grams) IV x1 after paracentesis if3 or more liters removed.Send ascitic fluid for cell count and differential.Labs to be ordered:->Other (please add comment)Reason for Exam:->ascites, cirrhosis FINAL REPORT Ultrasound guided paracentesis. Clinical History: Ascites. Sedation: None. Manager Laboratory: Cindy Payton PA-C Social Welfare Administrator: None. Estimated Blood Loss: < 1 cc. Specimen: 2300 cc of clear yellow fluid, samples sent to laboratory. Technique: Informed consent was obtained. The risks of pain, bleeding, infection, bowel perforation, injury to adjacent structures, and adverse medication reactions were discussed with the patient. After informed consent was obtained, the patient's abdomen was scanned. The RLQ of the abdomen was selected for paracentesis. After the largest fluid pocket area was marked, and the anterior abdominal wall was evaluated with color Doppler to exclude presence of blood vessels traversing the area, the skin was preppedand draped in the usual sterile manner. After local anesthesia was achieved with 2% lidocaine, a 5 Indonesian one-step catheter was advanced into the peritoneal cavity under ultrasound guidance. After completion of drainage, the catheter was removed. There was no evidence of complication. Impression:Successful ultrasound guided paracentesis. Signed: Lobo Bauer Verified Date/Time: 09/04/2019 15:47:39 Reading Location: [facility] [id number] Ultrasound Reading Room BODY FLUID CELL COUNT WITH [id number] 14:29:00 Test Item Value Reference Range Interpretation Comments APPEARANCE FLUID (BEAKER) (test Hazy Clear A code = 510) COLOR FLUID (BEAKER) (test code Yellow Colorless, Straw A = 511) RBC FLUID (BEAKER) (test code = 116 /cu mm <=1 H 513) ADJUSTED WBC FLUID (BEAKER) 82 /cu mm <=5 H (test code = 1691) LINING CELLS (BEAKER) (test code 0 /cu mm <=1 = 1590) NEUTROPHILS FLUID (BEAKER) (test 14 % code = 1656) LYMPHS FLUID (BEAKER) (test code 16 % = 488) MONO/MACROPHAGE FLUID (BEAKER) 70 % (test code = 489) EOSINOPHILS FLUID (BEAKER) (test 0 % code = 491) BASO FLUID (BEAKER) (test code = 0 % 492) CONTAINER BODY FLUID (BEAKER) Sterile Cup (test code = 2873) COMPREHENSIVE METABOLIC [id number] 11:06:00 Test Item Value Reference Range Interpretation Comments TOTAL PROTEIN 7.6 gm/dL 6.0-8.3 (BEAKER) (test code = 770) ALBUMIN (BEAKER) 3.5 g/dL 3.5-5.0 (test code = 1145) ALKALINE PHOSPHATASE 98 U/L 40-150 (BEAKER) (test code = 346) BILIRUBIN TOTAL 0.7 mg/dL 0.2-1.2 (BEAKER) (test code = 377) SODIUM (BEAKER) (test 135 meq/L 136-145 L code = 381) POTASSIUM (BEAKER) 5.1 meq/L 3.5-5.1 (test code = 379) CHLORIDE (BEAKER) 104 meq/L 98-107 (test code = 382) CO2 (BEAKER) (test 27 meq/L 22-29 code = 355) BLOOD UREA NITROGEN 14 mg/dL 7-21 (BEAKER) (test code = 354) CREATININE (BEAKER) 1.14 mg/dL 0.57-1.25 (test code = 358) GLUCOSE RANDOM 147 mg/dL 70-105 H (BEAKER) (test code = 652) CALCIUM (BEAKER) 9.2 mg/dL 8.4-10.2 (test code = 697) AST (SGOT) (BEAKER) 24 U/L 5-34 (test code = 353) ALT (SGPT) (BEAKER) 11 U/L 6-55 (test code = 347) EGFR (BEAKER) (test 47 mL/min/1.73 ESTIMA KIANNA GFR IS code = 1092) sq m NOT ACCURATE CREATININE CLEARANCE IN PREDICTING GLOMERULAR FILTRATION RATE . ESTIMATED GFR I S NOT APPLICABLE FOR DIALYSIS PATIEN TS. BILIRUBIN, [id number] 11:06:00 Test Item Value Reference Range Interpretation Comments BILIRUBIN DIRECT (BEAKER) (test 0.4 mg/dL 0.1-0.5 code = 706) CBC W/PLT COUNT & AUTO [id number] 11:02:00 Test Item Value Reference Range Interpretation Comments WHITE BLOOD CELL COUNT (BEAKER) 3.8 K/ L 3.5-10.5 (test code = 775) RED BLOOD CELL COUNT (BEAKER) 3.36 M/ L 3.93-5.22 L (test code = 761) HEMOGLOBIN (BEAKER) (test code = 8.7 GM/DL 11.2-15.7 L 410) HEMATOCRIT (BEAKER) (test code = 28.0 % 34.1-44.9 L 411) MEAN CORPUSCULAR VOLUME (BEAKER) 83.3 fL 79.4-94.8 (test code = 753) MEAN CORPUSCULAR HEMOGLOBIN 25.9 pg 25.6-32.2 (BEAKER) (test code = 751) MEAN CORPUSCULAR HEMOGLOBIN CONC 31.1 GM/DL 32.2-35.5 L (BEAKER) (test code = 752) RED CELL DISTRIBUTION WIDTH 16.1 % 11.7-14.4 H (BEAKER) (test code = 412) PLATELET COUNT (BEAKER) (test code 93 K/CU MM 150-450 L = 756) MEAN PLATELET VOLUME (BEAKER) 10.3 fL 9.4-12.3 (test code = 754) NUCLEATED RED BLOOD CELLS (BEAKER) 0 /100 WBC 0-0 (test code = 413) NEUTROPHILS RELATIVE PERCENT 80 % (BEAKER) (test code = 429) LYMPHOCYTES RELATIVE PERCENT 9 % (BEAKER) (test code = 430) MONOCYTES RELATIVE PERCENT 10 % (BEAKER) (test code = 431) EOSINOPHILS RELATIVE PERCENT 1 % (BEAKER) (test code = 432) BASOPHILS RELATIVE PERCENT 0 % (BEAKER) (test code = 437) NEUTROPHILS ABSOLUTE COUNT 3.04 K/ L 1.56-6.13 (BEAKER) (test code = 670) LYMPHOCYTES ABSOLUTE COUNT 0.34 K/ L 1.18-3.74 L (BEAKER) (test code = 414) MONOCYTES ABSOLUTE COUNT (BEAKER) 0.38 K/ L 0.24-0.36 H (test code = 415) EOSINOPHILS ABSOLUTE COUNT 0.04 K/ L 0.04-0.36 (BEAKER) (test code = 416) BASOPHILS ABSOLUTE COUNT (BEAKER) 0.01 K/ L 0.01-0.08 (test code = 417) IMMATURE GRANULOCYTES-RELATIVE 0 % 0-1 PERCENT (BEAKER) (test code = 2801) PROTHROMBIN [id number] 10:57:00 Test Item Value Reference Range Interpretation Comments PROTIME (BEAKER) (test code = 15.8 seconds 11.9-14.2 H 759) INR (BEAKER) (test code = 370) 1.3 <=5.9 Effective 04/09/2019: PT Reference Range ChangeNew: 11.9-14.2 Previous: 11.7- 14.7RECOMMENDED COUMADIN/WARFARIN INR THERAPY RANGESSTANDARD DOSE: 2.0-3.0 Includes: PROPHYLAXIS for venous thrombosis, systemic embolization; TREATMENT for venous thrombosis and/or pulmonary embolus.HIGH RISK: Target INR is2.5-3.5 for patients wiht mechanical heart valves.COMPREHENSIVE METABOLIC PANEL 2019-08-19 15:06:00 Test Item Value Reference Range Interpretation Comments TOTAL PROTEIN 7.9 gm/dL 6.0-8.3 (BEAKER) (test code = 770) ALBUMIN (BEAKER) 3.7 g/dL 3.5-5.0 (test code = 1145) ALKALINE PHOSPHATASE 85 U/L 40-150 (BEAKER) (test code = 346) BILIRUBIN TOTAL 0.8 mg/dL 0.2-1.2 (BEAKER) (test code = 377) SODIUM (BEAKER) (test 134 meq/L 136-145 L code = 381) POTASSIUM (BEAKER) 4.2 meq/L 3.5-5.1 (test code = 379) CHLORIDE (BEAKER) 101 meq/L 98-107 (test code = 382) CO2 (BEAKER) (test 29 meq/L 22-29 code = 355) BLOOD UREA NITROGEN 11 mg/dL 7-21 (BEAKER) (test code = 354) CREATININE (BEAKER) 0.98 mg/dL 0.57-1.25 (test code = 358) GLUCOSE RANDOM 109 mg/dL 70-105 H (BEAKER) (test code = 652) CALCIUM (BEAKER) 9.4 mg/dL 8.4-10.2 (test code = 697) AST (SGOT) (BEAKER) 34 U/L 5-34 (test code = 353) ALT (SGPT) (BEAKER) 18 U/L 6-55 (test code = 347) EGFR (BEAKER) (test 56 mL/min/1.73 ESTIMA KIANNA GFR IS code = 1092) sq m NOT ACCURATE CREATININE CLEARANCE IN PREDICTING GLOMERULAR FILTRATION RATE . ESTIMATED GFR I S NOT APPLICABLE FOR DIALYSIS PATIEN TS. BILIRUBIN, [id number] 15:06:00 Test Item Value Reference Range Interpretation Comments BILIRUBIN DIRECT (BEAKER) (test 0.5 mg/dL 0.1-0.5 code = 706) CBC W/PLT COUNT & AUTO [id number] 14:58:00 Test Item Value Reference Range Interpretation Comments WHITE BLOOD CELL COUNT (BEAKER) 3.5 K/ L 3.5-10.5 (test code = 775) RED BLOOD CELL COUNT (BEAKER) 3.54 M/ L 3.93-5.22 L (test code = 761) HEMOGLOBIN (BEAKER) (test code = 9.1 GM/DL 11.2-15.7 L 410) HEMATOCRIT (BEAKER) (test code = 29.4 % 34.1-44.9 L 411) MEAN CORPUSCULAR VOLUME (BEAKER) 83.1 fL 79.4-94.8 (test code = 753) MEAN CORPUSCULAR HEMOGLOBIN 25.7 pg 25.6-32.2 (BEAKER) (test code = 751) MEAN CORPUSCULAR HEMOGLOBIN CONC 31.0 GM/DL 32.2-35.5 L (BEAKER) (test code = 752) RED CELL DISTRIBUTION WIDTH 17.1 % 11.7-14.4 H (BEAKER) (test code = 412) PLATELET COUNT (BEAKER) (test code 65 K/CU MM 150-450 L = 756) MEAN PLATELET VOLUME (BEAKER) 10.3 fL 9.4-12.3 (test code = 754) NUCLEATED RED BLOOD CELLS (BEAKER) 0 /100 WBC 0-0 (test code = 413) NEUTROPHILS RELATIVE PERCENT 80 % (BEAKER) (test code = 429) LYMPHOCYTES RELATIVE PERCENT 11 % (BEAKER) (test code = 430) MONOCYTES RELATIVE PERCENT 8 % (BEAKER) (test code = 431) EOSINOPHILS RELATIVE PERCENT 1 % (BEAKER) (test code = 432) BASOPHILS RELATIVE PERCENT 0 % (BEAKER) (test code = 437) NEUTROPHILS ABSOLUTE COUNT 2.77 K/ L 1.56-6.13 (BEAKER) (test code = 670) LYMPHOCYTES ABSOLUTE COUNT 0.37 K/ L 1.18-3.74 L (BEAKER) (test code = 414) MONOCYTES ABSOLUTE COUNT (BEAKER) 0.28 K/ L 0.24-0.36 (test code = 415) EOSINOPHILS ABSOLUTE COUNT 0.03 K/ L 0.04-0.36 L (BEAKER) (test code = 416) BASOPHILS ABSOLUTE COUNT (BEAKER) 0.01 K/ L 0.01-0.08 (test code = 417) IMMATURE GRANULOCYTES-RELATIVE 0 % 0-1 PERCENT (BEAKER) (test code = 2801) PROTHROMBIN [id number] 14:46:00 Test Item Value Reference Range Interpretation Comments PROTIME (BEAKER) (test code = 15.9 seconds 11.9-14.2 H 759) INR (BEAKER) (test code = 370) 1.3 <=5.9 Effective 04/09/2019: PT Reference Range ChangeNew: 11.9-14.2 Previous: 11.7- 14.7RECOMMENDED COUMADIN/WARFARIN INR THERAPY RANGESSTANDARD DOSE: 2.0-3.0 Includes: PROPHYLAXIS for venous thrombosis, systemic embolization; TREATMENT for venous thrombosis and/or pulmonary embolus.HIGH RISK: Target INR is2.5-3.5 for patients wiht mechanical heart valves.RAD, CHEST, 2 [id number] 14:27:00 Referring: Dr. Mohsen Padron for Exam:->Diminshed breath sounds in right lungFINAL REPORT Chest, 2 views, 08/19/2019 2:16 PM. History: Decreased right breath sounds. Comparison: CT abdomen 08/14/2019. Discussion: The cardiomediastinal silhouette and pulmonary vasculature are within normal limits. There is right apical pleural thickening. There is dense opacification of the right lung base which obscures the right heart border and hemidiaphragm. A small amount of fluid is seen within the minor fissure. The left lung is clear without evidence of consolidation or effusion. There are no acute osseous abnormalities. The soft tissues are unremarkable. IMPRESSION: Findings consistent with right basilar consolidation and moderate pleural effusion as described on CT. Signed: Gagandeep Kaur MDReport Verified Date/Time: 08/19/2019 14:27:11 Reading Location:[facility] URINALYSIS W/ REFLEX URINE CULTURE 2019-08-14 06:05:00 Test Item Value Reference Range Interpretation Comments COLOR (BEAKER) (test code = 470) Light Yellow CLARITY (BEAKER) (test code = Clear 469) SPECIFIC GRAVITY UA (BEAKER) 1.007 1.001-1.035 (test code = 468) PH UA (BEAKER) (test code = 467) 6.0 5.0-8.0 PROTEIN UA (BEAKER) (test code = Negative Negative 464) GLUCOSE UA (BEAKER) (test code = Negative Negative 365) KETONES UA (BEAKER) (test code = Negative Negative 371) BILIRUBIN UA (BEAKER) (test code Negative Negative = 462) BLOOD UA (BEAKER) (test code = Negative Negative 461) NITRITE UA (BEAKER) (test code = Negative Negative 465) LEUKOCYTE ESTERASE UA (BEAKER) Negative Negative (test code = 466) UROBILINOGEN UA (BEAKER) (test 0.2 mg/dL 0.2-1.0 code = 463) RBC UA (BEAKER) (test code = 3 /HPF 519) WBC UA (BEAKER) (test code = 1 /HPF 520) SQUAMOUS EPITHELIAL (BEAKER) 1 /HPF (test code = 516) HYALINE CASTS (BEAKER) (test 4 /LPF code = 514) AMORPHOUS CRYSTALS (BEAKER) Rare (test code = 1584) SOURCE(BEAKER) (test code = 2795) CT, [id number] 05:39:00Referring: Dr. Mohsen Padron for exam:- >ABDOMINAL PAINWhat is the patient's sedation requirement?->No Sedation FINAL REPORT TECHNIQUE: CT of the abdomen and pelvis WITHOUT intravenous contrast and WITHOUT oral contrast. Dose modulation, iterative reconstruction, and/or weight-based adjustment of the mA/kV was utilized to reduce the radiation dose to as low as reasonably achievable. INDICA TION: Abdominal pain. COMPARISON: 06/11/19 FINDINGS: ABSENCE OF INTRAVENOUS CONTRAST DECREASES SENSITIVITY FOR DETECTION OF FOCAL LESIONS AND VASCULAR PATHOLOGY. LOWER THORAX: Moderate right pleural effusion with adjacent airspace consolidation. HEPATOBILIARY: Cirrhotic liver with dilated portal venous system increased compared to prior. Status post cholecystectomy. No biliary ductal dilatation.SPLEEN: Spleen is up to 14.6 cm in length.PANCREAS: No focal masses or ductal dilatation. ADRENALS: No adrenal nodules.KIDNEYS/URETERS: No hydronephrosis, stones, or exophytic masses.PELVIC ORGANS/BLADDER: Unremarkable. PERITONEUM/RETROPERITONEUM: There is a small amount of free fluid in all four quadrants.No free air.LYMPH NODES: No lymphadenopathy.VESSELS: Unremarkable. GI TRACT: No distention or wall thickening. Appendix not identified. There is a large right inguinal hernia containing loops of small bowel and fluid without definite evidence of ischemia. Unchanged left abdominal wall hernia containing fluid and small amount of fat. Postsurgical changes from repair of periumbilical hernia. BONES AND SOFT TISSUES: No acute osseous abnormality.. IMPRESSION:1. Details are limited secondary to lack of intravascular contrast. Within this constraint, no evidence of an acute abnormality within the abdomen or pelvis.2. Cirrhotic liver with portal hypertension, splenomegaly, and small amount ascites.3. Moderate right pleural effusion with associated adjacent airspace consolidation.4. Large right inguinalhernia containing loops of small bowel and fluid, moderate left abdominal wall hernia, and previously repaired periumbilical hernia. Signed: Isidro Vallejo MDReport Verified Date/Time: 08/14/2019 05:39:00 [id number] 01:33:00 Test Item Value Reference Range Interpretation Comments LIPASE (BEAKER) (test code = 749) 61 U/L 8-78 [id number] 01:33:00 Test Item Value Reference Range Interpretation Comments AMYLASE (BEAKER) (test code = 349) 78 U/L 25-125 BASIC METABOLIC [id number] 01:33:00 Test Item Value Reference Range Interpretation Comments SODIUM (BEAKER) 131 meq/L 136-145 L (test code = 381) POTASSIUM (BEAKER) 3.6 meq/L 3.5-5.1 (test code = 379) CHLORIDE (BEAKER) 94 meq/L 98-107 L (test code = 382) CO2 (BEAKER) (test 29 meq/L 22-29 code = 355) BLOOD UREA NITROGEN 20 mg/dL 7-21 (BEAKER) (test code = 354) CREATININE (BEAKER) 1.30 mg/dL 0.57-1.25 H (test code = 358) GLUCOSE RANDOM 180 mg/dL 70-105 H (BEAKER) (test code = 652) CALCIUM (BEAKER) 9.4 mg/dL 8.4-10.2 (test code = 697) EGFR (BEAKER) (test 40 mL/min/1.73 ESTIMA KIANNA GFR IS code = 1092) sq m NOT ACCURATE CREATININE CLEARANCE IN PREDICTING GLOMERULAR FILTRATION RATE . ESTIMATED GFR I S NOT APPLICABLE FOR DIALYSIS PATIEN TS. HEPATIC FUNCTION [id number] 01:33:00 Test Item Value Reference Range Interpretation Comments TOTAL PROTEIN (BEAKER) (test code = 8.0 gm/dL 6.0-8.3 770) ALBUMIN (BEAKER) (test code = 1145) 3.6 g/dL 3.5-5.0 BILIRUBIN TOTAL (BEAKER) (test code 1.0 mg/dL 0.2-1.2 = 377) BILIRUBIN DIRECT (BEAKER) (test 0.6 mg/dL 0.1-0.5 H code = 706) ALKALINE PHOSPHATASE (BEAKER) (test 111 U/L 40-150 code = 346) AST (SGOT) (BEAKER) (test code = 35 U/L 5-34 H 353) ALT (SGPT) (BEAKER) (test code = 20 U/L 6-55 347) CBC W/PLT COUNT & AUTO [id number] 00:59:00 Test Item Value Reference Range Interpretation Comments WHITE BLOOD CELL COUNT (BEAKER) 3.8 K/ L 3.5-10.5 (test code = 775) RED BLOOD CELL COUNT (BEAKER) 3.33 M/ L 3.93-5.22 L (test code = 761) HEMOGLOBIN (BEAKER) (test code = 8.6 GM/DL 11.2-15.7 L 410) HEMATOCRIT (BEAKER) (test code = 27.0 % 34.1-44.9 L 411) MEAN CORPUSCULAR VOLUME (BEAKER) 81.1 fL 79.4-94.8 (test code = 753) MEAN CORPUSCULAR HEMOGLOBIN 25.8 pg 25.6-32.2 (BEAKER) (test code = 751) MEAN CORPUSCULAR HEMOGLOBIN CONC 31.9 GM/DL 32.2-35.5 L (BEAKER) (test code = 752) RED CELL DISTRIBUTION WIDTH 16.9 % 11.7-14.4 H (BEAKER) (test code = 412) PLATELET COUNT (BEAKER) (test code 83 K/CU MM 150-450 L = 756) MEAN PLATELET VOLUME (BEAKER) 10.8 fL 9.4-12.3 (test code = 754) NUCLEATED RED BLOOD CELLS (BEAKER) 0 /100 WBC 0-0 (test code = 413) NEUTROPHILS RELATIVE PERCENT 86 % (BEAKER) (test code = 429) LYMPHOCYTES RELATIVE PERCENT 7 % (BEAKER) (test code = 430) MONOCYTES RELATIVE PERCENT 7 % (BEAKER) (test code = 431) EOSINOPHILS RELATIVE PERCENT 1 % (BEAKER) (test code = 432) BASOPHILS RELATIVE PERCENT 0 % (BEAKER) (test code = 437) NEUTROPHILS ABSOLUTE COUNT 3.22 K/ L 1.56-6.13 (BEAKER) (test code = 670) LYMPHOCYTES ABSOLUTE COUNT 0.25 K/ L 1.18-3.74 L (BEAKER) (test code = 414) MONOCYTES ABSOLUTE COUNT (BEAKER) 0.25 K/ L 0.24-0.36 (test code = 415) EOSINOPHILS ABSOLUTE COUNT 0.02 K/ L 0.04-0.36 L (BEAKER) (test code = 416) BASOPHILS ABSOLUTE COUNT (BEAKER) 0.01 K/ L 0.01-0.08 (test code = 417) IMMATURE GRANULOCYTES-RELATIVE 1 % 0-1 PERCENT (BEAKER) (test code = 2801) [id number] 00:40:00 Test Item Value Reference Range Interpretation Comments PROTIME (BEAKER) (test code = 15.5 seconds 11.9-14.2 H 759) INR (BEAKER) (test code = 370) 1.3 <=5.9 PARTIAL THROMBOPLASTIN TIME 34.9 seconds 22.5-36.0 (BEAKER) (test code = 760) Effective 04/09/2019: PT Reference Range ChangeNew: 11.9-14.2 Previous: 11.7- 14.7RECOMMENDED COUMADIN/WARFARIN INR THERAPY RANGESSTANDARD DOSE: 2.0-3.0 Includes: PROPHYLAXIS for venous thrombosis, systemic embolization; TREATMENT for venous thrombosis and/or pulmonary embolus.HIGH RISK: Target INR is2.5-3.5 for patients wiht mechanical heart valves.LORI [id number] 17:37:00 Referring: Dr. Mohsen Padron for Exam:->cirrhosis, ascitesFINAL REPORT Attempted transjugular intrahepatic portosystemic shunt creation History: Cirrhosis, refractory ascites. Modality: Ultrasound and fluoroscopy. Sedation: General anesthesia was utilized. The vital signs were monitored throughout the procedure by anesthesia and remained stable. Manager Laboratory: MD Dwight. Social Welfare Administrator: Marnie Aguilar MD. Approach: Right internal jugular vein Estimated blood loss: < 5 cc. Specimen: None. Fluoroscopy Time: 48.2 min. Dose (Ka,r): 1013 mGy. Technique/findings: Informed written consent was obtained. Discussion of risks, benefits, and alternatives were made with the patient. The patient expressed understanding and agreed to proceed. All elements maximal sterile barrier technique was utilized for this procedure, including utilization of sterile scrub solution for skin prep, a large sterile sheet to cover the areas of the patient that were not prepped, and hand hygiene, mask, head covering, and sterile gown for performing radiologist and scrub technologist. Ultrasound evaluation showed a patent and compressible right internal jugular vein, which was punctured under direct real-time ultrasound guidance with a micropuncture needle. An ultrasound image was saved to PACS. A 0.018 inch wire was placed through the needle into the right atrium. A 4 Indonesian micropuncture sheath was placed. A 0.035 inch J-wire was placed through the micropuncture sheath and the sheath was exchanged for a 10 Indonesian sheath. A 5 Indonesian angled tipcatheter was used to select the right hepatic vein. Venogram was performed confirming position within the right hepatic vein and patent right hepatic vein. Pressure measurements were obtained demonstrating free hepatic pressure of 4 mmHg and wedge hepatic pressure of 10 mmHg. A [place] needle was advanced through the sheath into the right hepatic vein. A long 21-gauge needle was advanced through the [place] needle coaxially multiple within the liver. However, only small caliber intrahepatic portal branches could be cannulated. A catheter/wire could not be manipulated centrally despite numerouspasses. After a prolonged attempt with multiple passes by two operators, a decision was made to abort the procedure. The sheath was removed and hemostasis achieved with manual compression. A sterile dressing was applied. Impression: Unsuccessful transjugular intrahepatic portosystemic shunt creationas a catheter/wire could not be manipulated into the central portal system which may be secondary the patient's anatomy and relative small caliber right portal system. Indirect portosystemic gradient measured at 6 mmHg. If repeat attempt is desired, recommend repeat CT evaluation of the portal system for better delineation of anatomy. Signed: Tanner Quintanilla MDReport Verified Date/Time: 07/05/2019 17:37:21 Reading Location: [place] [id number] Angio Body Reading Room POCT-GLUCOSE [id number] 18:42:00 Test Item Value Reference Range Interpretation Comments POC-GLUCOSE METER 128 mg/dL 70-110 H TESTED AT [facility] 67[address] (MALU) (test code = [place] 1538) [address] COMPREHENSIVE METABOLIC [id number] 10:55:00 Test Item Value Reference Range Interpretation Comments TOTAL PROTEIN 8.1 gm/dL 6.0-8.3 (BEAKER) (test code = 770) ALBUMIN (BEAKER) 3.7 g/dL 3.5-5.0 (test code = 1145) ALKALINE PHOSPHATASE 139 U/L 40-150 (BEAKER) (test code = 346) BILIRUBIN TOTAL 0.8 mg/dL 0.2-1.2 (BEAKER) (test code = 377) SODIUM (BEAKER) (test 134 meq/L 136-145 L code = 381) POTASSIUM (BEAKER) 4.5 meq/L 3.5-5.1 (test code = 379) CHLORIDE (BEAKER) 98 meq/L 98-107 (test code = 382) CO2 (BEAKER) (test 29 meq/L 22-29 code = 355) BLOOD UREA NITROGEN 28 mg/dL 7-21 H (BEAKER) (test code = 354) CREATININE (BEAKER) 1.36 mg/dL 0.57-1.25 H (test code = 358) GLUCOSE RANDOM 203 mg/dL 70-105 H (BEAKER) (test code = 652) CALCIUM (BEAKER) 9.6 mg/dL 8.4-10.2 (test code = 697) AST (SGOT) (BEAKER) 21 U/L 5-34 (test code = 353) ALT (SGPT) (BEAKER) 14 U/L 6-55 (test code = 347) EGFR (BEAKER) (test 38 mL/min/1.73 ESTIMA KIANNA GFR IS code = 1092) sq m NOT ACCURATE CREATININE CLEARANCE IN PREDICTING GLOMERULAR FILTRATION RATE . ESTIMATED GFR I S NOT APPLICABLE FOR DIALYSIS PATIEN TS. BILIRUBIN, [id number] 10:55:00 Test Item Value Reference Range Interpretation Comments BILIRUBIN DIRECT (BEAKER) (test 0.4 mg/dL 0.1-0.5 code = 706) [id number] 10:48:00 Test Item Value Reference Range Interpretation Comments PARTIAL THROMBOPLASTIN TIME 36.2 seconds 22.5-36.0 H (BEAKER) (test code = 760) PROTHROMBIN [id number] 10:47:00 Test Item Value Reference Range Interpretation Comments PROTIME (BEAKER) (test code = 15.6 seconds 11.9-14.2 H 759) INR (BEAKER) (test code = 370) 1.3 <=5.9 Effective 04/09/2019: PT Reference Range ChangeNew: 11.9-14.2 Previous: 11.7- 14.7RECOMMENDED COUMADIN/WARFARIN INR THERAPY RANGESSTANDARD DOSE: 2.0-3.0 Includes: PROPHYLAXIS for venous thrombosis, systemic embolization; TREATMENT for venous thrombosis and/or pulmonary embolus.HIGH RISK: Target INR is2.5-3.5 for patients wiht mechanical heart valves.CBC W/PLT COUNT & AUTO [id number] 10:40:00 Test Item Value Reference Range Interpretation Comments WHITE BLOOD CELL COUNT (BEAKER) 3.2 K/ L 3.5-10.5 L (test code = 775) RED BLOOD CELL COUNT (BEAKER) 3.51 M/ L 3.93-5.22 L (test code = 761) HEMOGLOBIN (BEAKER) (test code = 8.7 GM/DL 11.2-15.7 L 410) HEMATOCRIT (BEAKER) (test code = 28.3 % 34.1-44.9 L 411) MEAN CORPUSCULAR VOLUME (BEAKER) 80.6 fL 79.4-94.8 (test code = 753) MEAN CORPUSCULAR HEMOGLOBIN 24.8 pg 25.6-32.2 L (BEAKER) (test code = 751) MEAN CORPUSCULAR HEMOGLOBIN CONC 30.7 GM/DL 32.2-35.5 L (BEAKER) (test code = 752) RED CELL DISTRIBUTION WIDTH 16.8 % 11.7-14.4 H (BEAKER) (test code = 412) PLATELET COUNT (BEAKER) (test code 63 K/CU MM 150-450 L = 756) MEAN PLATELET VOLUME (BEAKER) 12.2 fL 9.4-12.3 (test code = 754) NUCLEATED RED BLOOD CELLS (BEAKER) 0 /100 WBC 0-0 (test code = 413) NEUTROPHILS RELATIVE PERCENT 80 % (BEAKER) (test code = 429) LYMPHOCYTES RELATIVE PERCENT 12 % (BEAKER) (test code = 430) MONOCYTES RELATIVE PERCENT 6 % (BEAKER) (test code = 431) EOSINOPHILS RELATIVE PERCENT 1 % (BEAKER) (test code = 432) BASOPHILS RELATIVE PERCENT 0 % (BEAKER) (test code = 437) NEUTROPHILS ABSOLUTE COUNT 2.55 K/ L 1.56-6.13 (BEAKER) (test code = 670) LYMPHOCYTES ABSOLUTE COUNT 0.37 K/ L 1.18-3.74 L (BEAKER) (test code = 414) MONOCYTES ABSOLUTE COUNT (BEAKER) 0.20 K/ L 0.24-0.36 L (test code = 415) EOSINOPHILS ABSOLUTE COUNT 0.04 K/ L 0.04-0.36 (BEAKER) (test code = 416) BASOPHILS ABSOLUTE COUNT (BEAKER) 0.01 K/ L 0.01-0.08 (test code = 417) IMMATURE GRANULOCYTES-RELATIVE 0 % 0-1 PERCENT (BEAKER) (test code = 2801) CT, [id number] 21:02:00Referring: Dr. Mohsen MullentFINAL REPORT INDICATION:Left upper quadrant and lower abdominal pain after her britt repair. COMPARISON: Abdomen ultrasound April 30, 2019Abdomen pelvis MR April 09, 2019 TECHNIQUE: CTof the Abdomen and Pelvis WITH intravenous contrast. Enteric contrast was not used. The exam was performed according to our department dose-optimization protocol, which includes automated exposure contr ol, adjustments of mA and kV according to patient size. Iterative reconstructions are also sometimesemployed. FINDINGS:There is periumbilical soft tissue thickening and suggestion of sutures, representing periumbilical hernia repair. No recurrent periumbilical hernia demonstrated. There is skin thickening and mild edema of the adjacent subcutaneous fat. The liver is shrunken with irregular contour representing cirrhosis. No gross liver mass. Spleen enlarged measuring 17 cm coronal long axis and diffuse mild ascites. Ascites extends through a left spigelian hernia and into a right inguinal hernia going down into the scrotum. There is suggestion of partial thrombus in the superior mesenteric vein, which was demonstrated on prior MR exams. Patient is status post cholecystectomy. Pancreas, adrenal glands, kidneys, and bladder are unremarkable. Uterus unremarkable. Large right pleural effusion with collapse of the right basilar segments. No suspicious osseous lesion demonstrated. IMPRESSION: Periumbilical hernia repair with mild stranding of the adjacent periumbilical fat. This may represent expected postoperative change or infection depending on timing of surgery. Cirrhosis and portal hypertension. Left spigelian hernia and right inguinal hernia. Large right pleural effusion. Signed: Cookie Zurita MDReport Verified Date/Time: 06/11/2019 21:02:31 Reading Location: [facility] B1 [id number] Consult Reading Room POCT-LACTIC ACID, VENOUS 2019-06-11 19:30:00 Test Item Value Reference Range Interpretation Comments POC-LACTIC ACID, 1.6 mmol/L 0.9-1.[address] [facility] [address] VENOUS (BEAKER) (test [place] code = 2805) [address] URINALYSIS W/ [id number] 17:57:00 Test Item Value Reference Range Interpretation Comments COLOR (BEAKER) (test code = 470) Light Yellow CLARITY (BEAKER) (test code = Clear 469) SPECIFIC GRAVITY UA (BEAKER) 1.008 1.001-1.035 (test code = 468) PH UA (BEAKER) (test code = 467) 6.5 5.0-8.0 PROTEIN UA (BEAKER) (test code = Negative Negative 464) GLUCOSE UA (BEAKER) (test code = Negative Negative 365) KETONES UA (BEAKER) (test code = Negative Negative 371) BILIRUBIN UA (BEAKER) (test code Negative Negative = 462) BLOOD UA (BEAKER) (test code = Negative Negative 461) NITRITE UA (BEAKER) (test code = Negative Negative 465) LEUKOCYTE ESTERASE UA (BEAKER) Negative Negative (test code = 466) UROBILINOGEN UA (BEAKER) (test 0.2 mg/dL 0.2-1.0 code = 463) RBC UA (BEAKER) (test code = < /HPF 519) WBC UA (BEAKER) (test code = 0 /HPF 520) MUCUS (BEAKER) (test code = Rare 1574) SOURCE(BEAKER) (test code = 2795) [id number] 17:53:00 Test Item Value Reference Range Interpretation Comments LIPASE (BEAKER) (test code = 749) 49 U/L 8-78 HEPATIC FUNCTION [id number] 17:53:00 Test Item Value Reference Range Interpretation Comments TOTAL PROTEIN (BEAKER) (test code = 7.9 gm/dL 6.0-8.3 770) ALBUMIN (BEAKER) (test code = 1145) 3.5 g/dL 3.5-5.0 BILIRUBIN TOTAL (BEAKER) (test code 0.6 mg/dL 0.2-1.2 = 377) BILIRUBIN DIRECT (BEAKER) (test 0.3 mg/dL 0.1-0.5 code = 706) ALKALINE PHOSPHATASE (BEAKER) (test 148 U/L 40-150 code = 346) AST (SGOT) (BEAKER) (test code = 20 U/L 5-34 353) ALT (SGPT) (BEAKER) (test code = 12 U/L 6-55 347) BASIC METABOLIC [id number] 16:40:00 Test Item Value Reference Range Interpretation Comments SODIUM (BEAKER) 134 meq/L 136-145 L (test code = 381) POTASSIUM (BEAKER) 4.3 meq/L 3.5-5.1 (test code = 379) CHLORIDE (BEAKER) 100 meq/L 98-107 (test code = 382) CO2 (BEAKER) (test 29 meq/L 22-29 code = 355) BLOOD UREA NITROGEN 25 mg/dL 7-21 H (BEAKER) (test code = 354) CREATININE (BEAKER) 1.35 mg/dL 0.57-1.25 H (test code = 358) GLUCOSE RANDOM 296 mg/dL 70-105 H (BEAKER) (test code = 652) CALCIUM (BEAKER) 9.3 mg/dL 8.4-10.2 (test code = 697) EGFR (BEAKER) (test 39 mL/min/1.73 ESTIMA KIANNA GFR IS code = 1092) sq m NOT ACCURATE CREATININE CLEARANCE IN PREDICTING GLOMERULAR FILTRATION RATE . ESTIMATED GFR I S NOT APPLICABLE FOR DIALYSIS PATIEN TS. CBC W/PLT COUNT & AUTO [id number] 16:08:00 Test Item Value Reference Range Interpretation Comments WHITE BLOOD CELL COUNT (BEAKER) 3.3 K/ L 3.5-10.5 L (test code = 775) RED BLOOD CELL COUNT (BEAKER) 3.56 M/ L 3.93-5.22 L (test code = 761) HEMOGLOBIN (BEAKER) (test code = 9.0 GM/DL 11.2-15.7 L 410) HEMATOCRIT (BEAKER) (test code = 29.1 % 34.1-44.9 L 411) MEAN CORPUSCULAR VOLUME (BEAKER) 81.7 fL 79.4-94.8 (test code = 753) MEAN CORPUSCULAR HEMOGLOBIN 25.3 pg 25.6-32.2 L (BEAKER) (test code = 751) MEAN CORPUSCULAR HEMOGLOBIN CONC 30.9 GM/DL 32.2-35.5 L (BEAKER) (test code = 752) RED CELL DISTRIBUTION WIDTH 15.9 % 11.7-14.4 H (BEAKER) (test code = 412) PLATELET COUNT (BEAKER) (test code 75 K/CU MM 150-450 L = 756) MEAN PLATELET VOLUME (BEAKER) 10.6 fL 9.4-12.3 (test code = 754) NUCLEATED RED BLOOD CELLS (BEAKER) 0 /100 WBC 0-0 (test code = 413) NEUTROPHILS RELATIVE PERCENT 83 % (BEAKER) (test code = 429) LYMPHOCYTES RELATIVE PERCENT 8 % (BEAKER) (test code = 430) MONOCYTES RELATIVE PERCENT 7 % (BEAKER) (test code = 431) EOSINOPHILS RELATIVE PERCENT 2 % (BEAKER) (test code = 432) BASOPHILS RELATIVE PERCENT 0 % (BEAKER) (test code = 437) NEUTROPHILS ABSOLUTE COUNT 2.71 K/ L 1.56-6.13 (BEAKER) (test code = 670) LYMPHOCYTES ABSOLUTE COUNT 0.26 K/ L 1.18-3.74 L (BEAKER) (test code = 414) MONOCYTES ABSOLUTE COUNT (BEAKER) 0.21 K/ L 0.24-0.36 L (test code = 415) EOSINOPHILS ABSOLUTE COUNT 0.05 K/ L 0.04-0.36 (BEAKER) (test code = 416) BASOPHILS ABSOLUTE COUNT (BEAKER) 0.01 K/ L 0.01-0.08 (test code = 417) IMMATURE GRANULOCYTES-RELATIVE 0 % 0-1 PERCENT (BEAKER) (test code = 2801) CBC W/PLT COUNT & AUTO [id number] 10:37:00 Test Item Value Reference Range Interpretation Comments WHITE BLOOD CELL COUNT (BEAKER) 3.8 K/ L 3.5-10.5 (test code = 775) RED BLOOD CELL COUNT (BEAKER) 3.35 M/ L 3.93-5.22 L (test code = 761) HEMOGLOBIN (BEAKER) (test code = 8.5 GM/DL 11.2-15.7 L 410) HEMATOCRIT (BEAKER) (test code = 27.8 % 34.1-44.9 L 411) MEAN CORPUSCULAR VOLUME (BEAKER) 83.0 fL 79.4-94.8 (test code = 753) MEAN CORPUSCULAR HEMOGLOBIN 25.4 pg 25.6-32.2 L (BEAKER) (test code = 751) MEAN CORPUSCULAR HEMOGLOBIN CONC 30.6 GM/DL 32.2-35.5 L (BEAKER) (test code = 752) RED CELL DISTRIBUTION WIDTH 16.1 % 11.7-14.4 H (BEAKER) (test code = 412) PLATELET COUNT (BEAKER) (test code 77 K/CU MM 150-450 L = 756) MEAN PLATELET VOLUME (BEAKER) 11.6 fL 9.4-12.3 (test code = 754) NUCLEATED RED BLOOD CELLS (BEAKER) 0 /100 WBC 0-0 (test code = 413) NEUTROPHILS RELATIVE PERCENT 81 % (BEAKER) (test code = 429) LYMPHOCYTES RELATIVE PERCENT 8 % (BEAKER) (test code = 430) MONOCYTES RELATIVE PERCENT 9 % (BEAKER) (test code = 431) EOSINOPHILS RELATIVE PERCENT 2 % (BEAKER) (test code = 432) BASOPHILS RELATIVE PERCENT 1 % (BEAKER) (test code = 437) NEUTROPHILS ABSOLUTE COUNT 3.02 K/ L 1.56-6.13 (BEAKER) (test code = 670) LYMPHOCYTES ABSOLUTE COUNT 0.30 K/ L 1.18-3.74 L (BEAKER) (test code = 414) MONOCYTES ABSOLUTE COUNT (BEAKER) 0.33 K/ L 0.24-0.36 (test code = 415) EOSINOPHILS ABSOLUTE COUNT 0.07 K/ L 0.04-0.36 (BEAKER) (test code = 416) BASOPHILS ABSOLUTE COUNT (BEAKER) 0.02 K/ L 0.01-0.08 (test code = 417) IMMATURE GRANULOCYTES-RELATIVE 0 % 0-1 PERCENT (BEAKER) (test code = 2801) HEPATIC FUNCTION [id number] 10:37:00 Test Item Value Reference Range Interpretation Comments TOTAL PROTEIN (BEAKER) (test code = 8.3 gm/dL 6.0-8.3 770) ALBUMIN (BEAKER) (test code = 1145) 3.6 g/dL 3.5-5.0 BILIRUBIN TOTAL (BEAKER) (test code 0.6 mg/dL 0.2-1.2 = 377) BILIRUBIN DIRECT (BEAKER) (test 0.4 mg/dL 0.1-0.5 code = 706) ALKALINE PHOSPHATASE (BEAKER) (test 147 U/L 40-150 code = 346) AST (SGOT) (BEAKER) (test code = 21 U/L 5-34 353) ALT (SGPT) (BEAKER) (test code = 15 U/L 6-55 347) BASIC METABOLIC [id number] 10:37:00 Test Item Value Reference Range Interpretation Comments SODIUM (BEAKER) 136 meq/L 136-145 (test code = 381) POTASSIUM (BEAKER) 4.9 meq/L 3.5-5.1 (test code = 379) CHLORIDE (BEAKER) 102 meq/L 98-107 (test code = 382) CO2 (BEAKER) (test 28 meq/L 22-29 code = 355) BLOOD UREA NITROGEN 25 mg/dL 7-21 H (BEAKER) (test code = 354) CREATININE (BEAKER) 1.25 mg/dL 0.57-1.25 (test code = 358) GLUCOSE RANDOM 260 mg/dL 70-105 H (BEAKER) (test code = 652) CALCIUM (BEAKER) 9.4 mg/dL 8.4-10.2 (test code = 697) EGFR (BEAKER) (test 42 mL/min/1.73 ESTIMA KIANNA GFR IS code = 1092) sq m NOT ACCURATE CREATININE CLEARANCE IN PREDICTING GLOMERULAR FILTRATION RATE . ESTIMATED GFR I S NOT APPLICABLE FOR DIALYSIS PATIEN TS. PROTHROMBIN [id number] 10:23:00 Test Item Value Reference Range Interpretation Comments PROTIME (BEAKER) (test code = 15.6 seconds 11.9-14.2 H 759) INR (BEAKER) (test code = 370) 1.3 <=5.9 Effective 04/09/2019: PT Reference Range ChangeNew: 11.9-14.2 Previous: 11.7- 14.7RECOMMENDED COUMADIN/WARFARIN INR THERAPY RANGESSTANDARD DOSE: 2.0-3.0 Includes: PROPHYLAXIS for venous thrombosis, systemic embolization; TREATMENT for venous thrombosis and/or pulmonary embolus.HIGH RISK: Target INR is2.5-3.5 for patients wiht mechanical heart valves.BODY FLUID CULTURE + GRAM STAIN 2019-05-23 12:04:00 Test Item Value Reference Range Interpretation Comments CULTURE (BEAKER) (test code No growth = 1095) GRAM STAIN RESULT (BEAKER) <1+ WBCs (test code = 1123) GRAM STAIN RESULT (BEAKER) No organisms seen (test code = 96719) U/S, [id number] 16:17:00Referring: Dr. Mohsen Padron for exam:->ASCITESFINAL REPORT Ultrasound guided paracentesis Clinical History: Ascites. Sedation: None. Manager Laboratory: Cindy Payton PA-C Social Welfare Administrator: None. Estimated Blood Loss: < 1 cc. Specimen: 5700 cc of clear yellow fluid, samples sent to laboratory. Technique: Informed consent was obtained. The risks of pain, bleeding, infection, bowel perforation, injury to adjacent structures, and adverse medication reactions were discussed with the patient. After informed consent was obtained, the patient's abdomen was scanned. The LLQ of the abdomen was selected for paracentesis. After the largest fluid pocket area was marked, and the anterior abdominal wall was evaluated with color Doppler to exclude presence of blood vessels traversing the area, the skin was prepped and draped in the usual sterile manner. After local anesthesia was achieved with 2% lidocaine, a 5 Indonesian one-step catheter was advanced into the peritoneal cavity under ultrasound guidance. After completion of drainage, the catheter was removed. There was no evidence of complication. This procedure was performed by NILDA Coy under direct supervision of Cirilo Craig M.D. Impression:Successful ultrasound guided paracentesis. Signed: Cirilo Craig MDReport Verified Date/Time: 05/19/2019 16:17:58 Reading Location: [address] Ultrasound Reading Room BODY FLUID CELL COUNT WITH [id number] 15:57:00 Test Item Value Reference Range Interpretation Comments APPEARANCE FLUID (BEAKER) Slightly Hazy Clear A (test code = 510) COLOR FLUID (BEAKER) (test Straw Colorless, Straw code = 511) RBC FLUID (BEAKER) (test code 220 /cu mm <=1 H = 513) ADJUSTED WBC FLUID (BEAKER) 55 /cu mm <=5 H (test code = 1691) LINING CELLS (BEAKER) (test 5 /cu mm <=1 H code = 1590) NEUTROPHILS FLUID (BEAKER) 9 % (test code = 1656) LYMPHS FLUID (BEAKER) (test 14 % code = 488) MONO/MACROPHAGE FLUID (BEAKER) 77 % (test code = 489) EOSINOPHILS FLUID (BEAKER) 0 % (test code = 491) BASO FLUID (BEAKER) (test code 0 % = 492) CONTAINER BODY FLUID (BEAKER) EDTA Tube (test code = 2873) COMPREHENSIVE METABOLIC [id number] 11:54:00 Test Item Value Reference Range Interpretation Comments TOTAL PROTEIN 8.0 gm/dL 6.0-8.3 Specimen sligh tly (BEAKER) (test code = hemoly zed 770) ALBUMIN (BEAKER) 3.4 g/dL 3.5-5.0 L Specimen sl ightly (test code = 1145) hemolyzed ALKALINE PHOSPHATASE 132 U/L 40-150 (BEAKER) (test code = 346) BILIRUBIN TOTAL 0.6 mg/dL 0.2-1.2 Specimen sli ghtly (BEAKER) (test code = hemoly zed 377) SODIUM (BEAKER) (test 137 meq/L 136-145 code = 381) POTASSIUM (BEAKER) 4.1 meq/L 3.5-5.1 Specimen slightly (test code = 379) hemolyzed CHLORIDE (BEAKER) 106 meq/L 98-107 (test code = 382) CO2 (BEAKER) (test 25 meq/L 22-29 code = 355) BLOOD UREA NITROGEN 24 mg/dL 7-21 H (BEAKER) (test code = 354) CREATININE (BEAKER) 1.15 mg/dL 0.57-1.25 Specimen slightly (test code = 358) hemolyzed GLUCOSE RANDOM 101 mg/dL 70-105 (BEAKER) (test code = 652) CALCIUM (BEAKER) 9.1 mg/dL 8.4-10.2 (test code = 697) AST (SGOT) (BEAKER) 30 U/L 5-34 Specimen slightly (test code = 353) hemolyzed ALT (SGPT) (BEAKER) 17 U/L 6-55 Specimen slightly (test code = 347) hemolyzed EGFR (BEAKER) (test 47 mL/min/1.73 ESTIMA KIANNA GFR IS code = 1092) sq m NOT ACCURATE CREATININE CLEARANCE IN PREDICTING GLOMERULAR FILTRATION RATE . ESTIMATED GFR I S NOT APPLICABLE FOR DIALYSIS PATIEN TS. [id number] 11:46:00 Test Item Value Reference Range Interpretation Comments AMMONIA (BEAKER) (test code = 348) 30 mol/L 18-72 [id number] 11:45:00 Test Item Value Reference Range Interpretation Comments PROTIME (BEAKER) (test code = 15.2 seconds 11.9-14.2 H 759) INR (BEAKER) (test code = 370) 1.3 <=5.9 PARTIAL THROMBOPLASTIN TIME 37.0 seconds 22.5-36.0 H (BEAKER) (test code = 760) Effective 04/09/2019: PT Reference Range ChangeNew: 11.9-14.2 Previous: 11.7- 14.7RECOMMENDED COUMADIN/WARFARIN INR THERAPY RANGESSTANDARD DOSE: 2.0-3.0 Includes: PROPHYLAXIS for venous thrombosis, systemic embolization; TREATMENT for venous thrombosis and/or pulmonary embolus.HIGH RISK: Target INR is2.5-3.5 for patients wiht mechanical heart valves.CBC W/PLT COUNT & AUTO [id number] 11:38:00 Test Item Value Reference Range Interpretation Comments WHITE BLOOD CELL COUNT (BEAKER) 3.6 K/ L 3.5-10.5 (test code = 775) RED BLOOD CELL COUNT (BEAKER) 3.24 M/ L 3.93-5.22 L (test code = 761) HEMOGLOBIN (BEAKER) (test code = 8.4 GM/DL 11.2-15.7 L 410) HEMATOCRIT (BEAKER) (test code = 27.7 % 34.1-44.9 L 411) MEAN CORPUSCULAR VOLUME (BEAKER) 85.5 fL 79.4-94.8 (test code = 753) MEAN CORPUSCULAR HEMOGLOBIN 25.9 pg 25.6-32.2 (BEAKER) (test code = 751) MEAN CORPUSCULAR HEMOGLOBIN CONC 30.3 GM/DL 32.2-35.5 L (BEAKER) (test code = 752) RED CELL DISTRIBUTION WIDTH 15.9 % 11.7-14.4 H (BEAKER) (test code = 412) PLATELET COUNT (BEAKER) (test code 80 K/CU MM 150-450 L = 756) MEAN PLATELET VOLUME (BEAKER) 11.2 fL 9.4-12.3 (test code = 754) NUCLEATED RED BLOOD CELLS (BEAKER) 0 /100 WBC 0-0 (test code = 413) NEUTROPHILS RELATIVE PERCENT 78 % (BEAKER) (test code = 429) LYMPHOCYTES RELATIVE PERCENT 10 % (BEAKER) (test code = 430) MONOCYTES RELATIVE PERCENT 9 % (BEAKER) (test code = 431) EOSINOPHILS RELATIVE PERCENT 3 % (BEAKER) (test code = 432) BASOPHILS RELATIVE PERCENT 0 % (BEAKER) (test code = 437) NEUTROPHILS ABSOLUTE COUNT 2.82 K/ L 1.56-6.13 (BEAKER) (test code = 670) LYMPHOCYTES ABSOLUTE COUNT 0.36 K/ L 1.18-3.74 L (BEAKER) (test code = 414) MONOCYTES ABSOLUTE COUNT (BEAKER) 0.33 K/ L 0.24-0.36 (test code = 415) EOSINOPHILS ABSOLUTE COUNT 0.09 K/ L 0.04-0.36 (BEAKER) (test code = 416) BASOPHILS ABSOLUTE COUNT (BEAKER) 0.01 K/ L 0.01-0.08 (test code = 417) IMMATURE GRANULOCYTES-RELATIVE 1 % 0-1 PERCENT (BEAKER) (test code = 2801) ALPHA FETOPROTEIN (AFP), TUMOR [id number] 15:18:00 Test Item Value Reference Range Interpretation Comments ALPHA-FETOPROTEIN (BEAKER) (test 2.1 ng/mL <10.0 code = 1094) HEPATIC FUNCTION [id number] 15:13:00 Test Item Value Reference Range Interpretation Comments TOTAL PROTEIN (BEAKER) (test code = 7.7 gm/dL 6.0-8.3 770) ALBUMIN (BEAKER) (test code = 1145) 3.3 g/dL 3.5-5.0 L BILIRUBIN TOTAL (BEAKER) (test code 0.9 mg/dL 0.2-1.2 = 377) BILIRUBIN DIRECT (BEAKER) (test 0.6 mg/dL 0.1-0.5 H code = 706) ALKALINE PHOSPHATASE (BEAKER) (test 124 U/L 40-150 code = 346) AST (SGOT) (BEAKER) (test code = 29 U/L 5-34 353) ALT (SGPT) (BEAKER) (test code = 19 U/L 6-55 347) BASIC METABOLIC [id number] 15:13:00 Test Item Value Reference Range Interpretation Comments SODIUM (BEAKER) 131 meq/L 136-145 L (test code = 381) POTASSIUM (BEAKER) 4.2 meq/L 3.5-5.1 (test code = 379) CHLORIDE (BEAKER) 103 meq/L 98-107 (test code = 382) CO2 (BEAKER) (test 22 meq/L 22-29 code = 355) BLOOD UREA NITROGEN 19 mg/dL 7-21 (BEAKER) (test code = 354) CREATININE (BEAKER) 1.09 mg/dL 0.57-1.25 (test code = 358) GLUCOSE RANDOM 197 mg/dL 70-105 H (BEAKER) (test code = 652) CALCIUM (BEAKER) 8.6 mg/dL 8.4-10.2 (test code = 697) EGFR (BEAKER) (test 50 mL/min/1.73 ESTIMA KIANNA GFR IS code = 1092) sq m NOT ACCURATE CREATININE CLEARANCE IN PREDICTING GLOMERULAR FILTRATION RATE . ESTIMATED GFR I S NOT APPLICABLE FOR DIALYSIS PATIEN TS. PROTHROMBIN [id number] 14:49:00 Test Item Value Reference Range Interpretation Comments PROTIME (BEAKER) (test code = 15.9 seconds 11.9-14.2 H 759) INR (BEAKER) (test code = 370) 1.3 <=5.9 Effective 04/09/2019: PT Reference Range ChangeNew: 11.9-14.2 Previous: 11.7- 14.7RECOMMENDED COUMADIN/WARFARIN INR THERAPY RANGESSTANDARD DOSE: 2.0-3.0 Includes: PROPHYLAXIS for venous thrombosis, systemic embolization; TREATMENT for venous thrombosis and/or pulmonary embolus.HIGH RISK: Target INR is2.5-3.5 for patients wiht mechanical heart valves.CBC W/PLT COUNT & AUTO [id number] 14:44:00 Test Item Value Reference Range Interpretation Comments WHITE BLOOD CELL COUNT (BEAKER) 3.7 K/ L 3.5-10.5 (test code = 775) RED BLOOD CELL COUNT (BEAKER) 3.11 M/ L 3.93-5.22 L (test code = 761) HEMOGLOBIN (BEAKER) (test code = 8.1 GM/DL 11.2-15.7 L 410) HEMATOCRIT (BEAKER) (test code = 26.6 % 34.1-44.9 L 411) MEAN CORPUSCULAR VOLUME (BEAKER) 85.5 fL 79.4-94.8 (test code = 753) MEAN CORPUSCULAR HEMOGLOBIN 26.0 pg 25.6-32.2 (BEAKER) (test code = 751) MEAN CORPUSCULAR HEMOGLOBIN CONC 30.5 GM/DL 32.2-35.5 L (BEAKER) (test code = 752) RED CELL DISTRIBUTION WIDTH 15.5 % 11.7-14.4 H (BEAKER) (test code = 412) PLATELET COUNT (BEAKER) (test code 82 K/CU MM 150-450 L = 756) MEAN PLATELET VOLUME (BEAKER) 12.4 fL 9.4-12.3 H (test code = 754) NUCLEATED RED BLOOD CELLS (BEAKER) 0 /100 WBC 0-0 (test code = 413) NEUTROPHILS RELATIVE PERCENT 80 % (BEAKER) (test code = 429) LYMPHOCYTES RELATIVE PERCENT 11 % (BEAKER) (test code = 430) MONOCYTES RELATIVE PERCENT 7 % (BEAKER) (test code = 431) EOSINOPHILS RELATIVE PERCENT 1 % (BEAKER) (test code = 432) BASOPHILS RELATIVE PERCENT 1 % (BEAKER) (test code = 437) NEUTROPHILS ABSOLUTE COUNT 2.92 K/ L 1.56-6.13 (BEAKER) (test code = 670) LYMPHOCYTES ABSOLUTE COUNT 0.40 K/ L 1.18-3.74 L (BEAKER) (test code = 414) MONOCYTES ABSOLUTE COUNT (BEAKER) 0.27 K/ L 0.24-0.36 (test code = 415) EOSINOPHILS ABSOLUTE COUNT 0.04 K/ L 0.04-0.36 (BEAKER) (test code = 416) BASOPHILS ABSOLUTE COUNT (BEAKER) 0.03 K/ L 0.01-0.08 (test code = 417) IMMATURE GRANULOCYTES-RELATIVE 0 % 0-1 PERCENT (BEAKER) (test code = 2801) BODY FLUID CULTURE + GRAM [id number] 14:43:00 Test Item Value Reference Interpretation Comments Range CULTURE (BEAKER) STAPHYLOCOCCUS A Staphyloc occus (test code = 1095) AUREUS aureus Clindamycin (test R code = 10) Erythromycin (test R code = 4) Linezolid (test code S = 40) Nitrofurantoin (test S code = 23) Oxacillin (test code S = 14) Rifampin (test code = S 43) Tetracycline (test S code = 2) Trimethoprim + S Sulfamethoxazole (test code = 47) Vancomycin (test code S = 13) GRAM STAIN RESULT <1+ WBCs (BEAKER) (test code = 1123) GRAM STAIN RESULT No organisms seen (BEAKER) (test code = 457118) BLOOD [id number] 12:01:00 Test Item Value Reference Range Interpretation Comments CULTURE (BEAKER) (test No growth in 5 days code = 1095) U/S, [id number] 10:51:00Referring: Dr. Mohsen Og for exam:->ascitesFINAL REPORT Ultrasound guided paracentesis. Clinical History: Ascites. Sedation: None. Manager Laboratory: Cindy Payton PA-C Social Welfare Administrator: None. Estimated Blood Loss: < 1 cc. Specimen: 7900 cc of clear yellow fluid, samples sent to laboratory. Technique: Informed consent was obtained. The risks of pain, bleeding, infection, bowel perforation, injury to adjacent structures, and adverse medication reactions were discussed with the patient. After informed consent was obtained, the patient's abdomen was scanned. The RLQ of the abdomen was selected for paracentesis. After the largest fluid pocket area was marked, and the anterior abdominal wall was evaluated with color Doppler to exclude presence of blood vessels traversing the area, the skin was preppedand draped in the usual sterile manner. After local anesthesia was achieved with 2% lidocaine, a 5 Indonesian one-step catheter was advanced into the peritoneal cavity under ultrasound guidance. After completion of drainage, the catheter was removed. There was no evidence of complication. Impression:Successful ultrasound guided paracentesis. Signed: Gagandeep Kaur MDReport Verified Date/Time: 05/04/2019 10:51:19 Reading Location: [facility] [id number] Ultrasound Reading Room POCT- GLUCOSE [id number] 11:52:00 Test Item Value Reference Range Interpretation Comments POC-GLUCOSE METER 155 mg/dL 70-110 H TESTED AT [facility] 67 (BEAKER) (test code = [address] [place] 1538) [id number] POCT-GLUCOSE [id number] 08:32:00 Test Item Value Reference Range Interpretation Comments POC-GLUCOSE METER 145 mg/dL 70-110 H TESTED AT [place] [address] (BEAKER) (test code = [facility] 1538) [address] HEPATIC FUNCTION [id number] 07:18:00 Test Item Value Reference Range Interpretation Comments TOTAL PROTEIN (BEAKER) (test code = 7.1 gm/dL 6.0-8.3 770) ALBUMIN (BEAKER) (test code = 1145) 3.1 g/dL 3.5-5.0 L BILIRUBIN TOTAL (BEAKER) (test code 0.6 mg/dL 0.2-1.2 = 377) BILIRUBIN DIRECT (BEAKER) (test 0.4 mg/dL 0.1-0.5 code = 706) ALKALINE PHOSPHATASE (BEAKER) (test 107 U/L 40-150 code = 346) AST (SGOT) (BEAKER) (test code = 28 U/L 5-34 353) ALT (SGPT) (BEAKER) (test code = 14 U/L 6-55 347) BASIC METABOLIC [id number] 07:18:00 Test Item Value Reference Range Interpretation Comments SODIUM (BEAKER) 133 meq/L 136-145 L (test code = 381) POTASSIUM (BEAKER) 4.5 meq/L 3.5-5.1 (test code = 379) CHLORIDE (BEAKER) 103 meq/L 98-107 (test code = 382) CO2 (BEAKER) (test 23 meq/L 22-29 code = 355) BLOOD UREA NITROGEN 24 mg/dL 7-21 H (BEAKER) (test code = 354) CREATININE (BEAKER) 1.03 mg/dL 0.57-1.25 (test code = 358) GLUCOSE RANDOM 141 mg/dL 70-105 H (BEAKER) (test code = 652) CALCIUM (BEAKER) 8.6 mg/dL 8.4-10.2 (test code = 697) EGFR (BEAKER) (test 53 mL/min/1.73 ESTIMA KIANNA GFR IS code = 1092) sq m NOT ACCURATE CREATININE CLEARANCE IN PREDICTING GLOMERULAR FILTRATION RATE . ESTIMATED GFR I S NOT APPLICABLE FOR DIALYSIS PATIEN TS. PROTHROMBIN [id number] 06:33:00 Test Item Value Reference Range Interpretation Comments PROTIME (BEAKER) (test code = 17.2 seconds 11.9-14.2 H 759) INR (BEAKER) (test code = 370) 1.5 <=5.9 Effective 04/09/2019: PT Reference Range ChangeNew: 11.9-14.2 Previous: 11.7- 14.7RECOMMENDED COUMADIN/WARFARIN INR THERAPY RANGESSTANDARD DOSE: 2.0-3.0 Includes: PROPHYLAXIS for venous thrombosis, systemic embolization; TREATMENT for venous thrombosis and/or pulmonary embolus.HIGH RISK: Target INR is2.5-3.5 for patients wiht mechanical heart valves.CBC W/PLT COUNT & AUTO [id number] 06:11:00 Test Item Value Reference Range Interpretation Comments WHITE BLOOD CELL COUNT (BEAKER) 4.8 K/ L 3.5-10.5 (test code = 775) RED BLOOD CELL COUNT (BEAKER) 2.98 M/ L 3.93-5.22 L (test code = 761) HEMOGLOBIN (BEAKER) (test code = 7.8 GM/DL 11.2-15.7 L 410) HEMATOCRIT (BEAKER) (test code = 25.0 % 34.1-44.9 L 411) MEAN CORPUSCULAR VOLUME (BEAKER) 83.9 fL 79.4-94.8 (test code = 753) MEAN CORPUSCULAR HEMOGLOBIN 26.2 pg 25.6-32.2 (BEAKER) (test code = 751) MEAN CORPUSCULAR HEMOGLOBIN CONC 31.2 GM/DL 32.2-35.5 L (BEAKER) (test code = 752) RED CELL DISTRIBUTION WIDTH 15.7 % 11.7-14.4 H (BEAKER) (test code = 412) PLATELET COUNT (BEAKER) (test 106 K/CU MM 150-450 L code = 756) MEAN PLATELET VOLUME (BEAKER) 11.6 fL 9.4-12.3 (test code = 754) NUCLEATED RED BLOOD CELLS 0 /100 WBC 0-0 (BEAKER) (test code = 413) NEUTROPHILS RELATIVE PERCENT 82 % (BEAKER) (test code = 429) LYMPHOCYTES RELATIVE PERCENT 8 % (BEAKER) (test code = 430) MONOCYTES RELATIVE PERCENT 8 % (BEAKER) (test code = 431) EOSINOPHILS RELATIVE PERCENT 1 % (BEAKER) (test code = 432) BASOPHILS RELATIVE PERCENT 0 % (BEAKER) (test code = 437) NEUTROPHILS ABSOLUTE COUNT 3.95 K/ L 1.56-6.13 (BEAKER) (test code = 670) LYMPHOCYTES ABSOLUTE COUNT 0.40 K/ L 1.18-3.74 L (BEAKER) (test code = 414) MONOCYTES ABSOLUTE COUNT (BEAKER) 0.38 K/ L 0.24-0.36 H (test code = 415) EOSINOPHILS ABSOLUTE COUNT 0.06 K/ L 0.04-0.36 (BEAKER) (test code = 416) BASOPHILS ABSOLUTE COUNT (BEAKER) 0.02 K/ L 0.01-0.08 (test code = 417) IMMATURE GRANULOCYTES-RELATIVE 0 % 0-1 PERCENT (BEAKER) (test code = 2801) POCT-GLUCOSE [id number] 21:34:00 Test Item Value Reference Range Interpretation Comments POC-GLUCOSE METER 230 mg/dL 70-110 H TESTED AT [facility] 6720 (BEAKER) (test code = [facility] [address] 1538) [address] U/S, ABDOMINAL, [id number] 20:56:00Referring: Dr. Mohsen MullentPchavez do with dopplerReason for exam:->ascites, abdominal painFINAL REPORT History: Generalized abdominal pain, ascites. FINDINGS: No compar isons. Real-time sonographic examination of the abdomen reveals a relatively small liver measuring up to 11.7 cm in length. Hepatic echotexture appears diffusely coarsened, possibly representing cirrhosis. There is a 1.9 x 1.8 x 1.8 cm anechoic thin-walled cyst in the right hepatic lobe. There are noother focal liver abnormalities or masses identified. The gallbladder is not visualized and may be surgically absent. Extrahepatic common bile duct measures up to 9 mm in diameter, slightly dilated forthe patient's stated age. No intrahepatic biliary ductal dilatation or visible intraductal stones. The spleen is markedly enlarged measuring up to 16.1 cm in length. No focal splenic abnormalities. Kidneys are normal size and echogenicity measuring up to 11.0 and 9.5 cm in length on the right and left, respectively. There are no visible solid masses, cysts, stones or evidence for obstruction. The pancreas is unremarkable were visible. Aorta and IVC are unremarkable. Maximum aortic diameter measures up to 1.9 cm proximally. A small amount of ascites is present status post paracentesis. Hepatic Doppler examination including color, grayscale and spectral Doppler analysis demonstrates a patent main portal vein measuring up to 9 mm in diameter and demonstrating hepatopedal flow at a rate of 20 cm/s. The right and left portal veins are also patent and demonstrate hepatopedal flow. The proper, right and left hepatic arteries are patent with resistive indices of 0.7, 0.7 and 0.7, respectively. The inferior vena cava, hepatic venous confluence, right hepatic vein, middle hepatic vein and left hepatic vein are patent. The splenic vein is patent at the level of the splenic hilum, pancreatic tail and pancreatic head. IMPRESSION: 1. Small liver with coarsened echotexture, likely representing cirrhosis. Splenomegaly and ascites are suggestive of portal hypertension. Hepatic Doppler examination is unremarkable. 2. Nonvisualization of the gallbladder, possibly surgically absent. The extrahepatic common bile duct is mildly dilated for the patient's stated age. No visible intrahepatic duct dilatation or intraductal stones. MRCP or ERCP could be performed for further evaluation if indicated clinically. Signed: Marnie Aguilar MDReport Verified Date/Time: 04/30/2019 20:56:22 Reading Location: [facility] Diagnostic Imaging Reading Room - [place] [address] POCT-GLUCOSE [id number] 15:26:00 Test Item Value Reference Range Interpretation Comments POC-GLUCOSE METER 97 mg/dL 70-110 TESTED AT [place] [address] ([facility]) (test code = [facility] [address]) BODY FLUID CELL COUNT WITH [id number] 15:01:00 Test Item Value Reference Range Interpretation Comments APPEARANCE FLUID (BEAKER) (test Clear Clear code = 510) COLOR FLUID (BEAKER) (test code = Colorless Colorless, Straw 511) RBC FLUID (BEAKER) (test code = 170 /cu mm <=1 H 513) ADJUSTED WBC FLUID (BEAKER) (test 12 /cu mm <=5 H code = 1691) LINING CELLS (BEAKER) (test code 0 /cu mm <=1 = 1590) NEUTROPHILS FLUID (BEAKER) (test 21 % code = 1656) LYMPHS FLUID (BEAKER) (test code 52 % = 488) MONO/MACROPHAGE FLUID (BEAKER) 27 % (test code = 489) EOSINOPHILS FLUID (BEAKER) (test 0 % code = 491) BASO FLUID (BEAKER) (test code = 0 % 492) CONTAINER BODY FLUID (BEAKER) EDTA Tube (test code = 2873) POCT-GLUCOSE [id number] 09:12:00 Test Item Value Reference Range Interpretation Comments POC-GLUCOSE METER 136 mg/dL 70-110 H TESTED AT [facility] 6720 (BEAKER) (test code = [facility] 1538) [address] CBC W/PLT COUNT & AUTO [id number] 07:19:00 Test Item Value Reference Range Interpretation Comments WHITE BLOOD CELL COUNT (BEAKER) 5.3 K/ L 3.5-10.5 (test code = 775) RED BLOOD CELL COUNT (BEAKER) 3.12 M/ L 3.93-5.22 L (test code = 761) HEMOGLOBIN (BEAKER) (test code = 8.1 GM/DL 11.2-15.7 L 410) HEMATOCRIT (BEAKER) (test code = 26.2 % 34.1-44.9 L 411) MEAN CORPUSCULAR VOLUME (BEAKER) 84.0 fL 79.4-94.8 (test code = 753) MEAN CORPUSCULAR HEMOGLOBIN 26.0 pg 25.6-32.2 (BEAKER) (test code = 751) MEAN CORPUSCULAR HEMOGLOBIN CONC 30.9 GM/DL 32.2-35.5 L (BEAKER) (test code = 752) RED CELL DISTRIBUTION WIDTH 16.1 % 11.7-14.4 H (BEAKER) (test code = 412) PLATELET COUNT (BEAKER) (test 106 K/CU MM 150-450 L code = 756) MEAN PLATELET VOLUME (BEAKER) 11.6 fL 9.4-12.3 (test code = 754) NUCLEATED RED BLOOD CELLS 0 /100 WBC 0-0 (BEAKER) (test code = 413) NEUTROPHILS RELATIVE PERCENT 78 % (BEAKER) (test code = 429) LYMPHOCYTES RELATIVE PERCENT 11 % (BEAKER) (test code = 430) MONOCYTES RELATIVE PERCENT 9 % (BEAKER) (test code = 431) EOSINOPHILS RELATIVE PERCENT 2 % (BEAKER) (test code = 432) BASOPHILS RELATIVE PERCENT 0 % (BEAKER) (test code = 437) NEUTROPHILS ABSOLUTE COUNT 4.11 K/ L 1.56-6.13 (BEAKER) (test code = 670) LYMPHOCYTES ABSOLUTE COUNT 0.57 K/ L 1.18-3.74 L (BEAKER) (test code = 414) MONOCYTES ABSOLUTE COUNT (BEAKER) 0.48 K/ L 0.24-0.36 H (test code = 415) EOSINOPHILS ABSOLUTE COUNT 0.08 K/ L 0.04-0.36 (BEAKER) (test code = 416) BASOPHILS ABSOLUTE COUNT (BEAKER) 0.01 K/ L 0.01-0.08 (test code = 417) IMMATURE GRANULOCYTES-RELATIVE 0 % 0-1 PERCENT (BEAKER) (test code = 2801) BASIC METABOLIC [id number] 06:37:00 Test Item Value Reference Range Interpretation Comments SODIUM (BEAKER) 133 meq/L 136-145 L (test code = 381) POTASSIUM (BEAKER) 4.4 meq/L 3.5-5.1 (test code = 379) CHLORIDE (BEAKER) 105 meq/L 98-107 (test code = 382) CO2 (BEAKER) (test 22 meq/L 22-29 code = 355) BLOOD UREA NITROGEN 19 mg/dL 7-21 (BEAKER) (test code = 354) CREATININE (BEAKER) 0.84 mg/dL 0.57-1.25 (test code = 358) GLUCOSE RANDOM 117 mg/dL 70-105 H (BEAKER) (test code = 652) CALCIUM (BEAKER) 8.5 mg/dL 8.4-10.2 (test code = 697) EGFR (BEAKER) (test 67 mL/min/1.73 ESTIMA KIANNA GFR IS code = 1092) sq m NOT ACCURATE CREATININE CLEARANCE IN PREDICTING GLOMERULAR FILTRATION RATE . ESTIMATED GFR I S NOT APPLICABLE FOR DIALYSIS PATIEN TS. PROTHROMBIN [id number] 06:09:00 Test Item Value Reference Range Interpretation Comments PROTIME (BEAKER) (test code = 16.0 seconds 11.9-14.2 H 759) INR (BEAKER) (test code = 370) 1.4 <=5.9 Effective 04/09/2019: PT Reference Range ChangeNew: 11.9-14.2 Previous: 11.7- 14.7RECOMMENDED COUMADIN/WARFARIN INR THERAPY RANGESSTANDARD DOSE: 2.0-3.0 Includes: PROPHYLAXIS for venous thrombosis, systemic embolization; TREATMENT for venous thrombosis and/or pulmonary embolus.HIGH RISK: Target INR is2.5-3.5 for patients wiht mechanical heart valves.POCT-GLUCOSE [id number] 22:27:00 Test Item Value Reference Range Interpretation Comments POC-GLUCOSE METER 169 mg/dL 70-110 H TESTED AT [facility] 67 ([facility]) (test code = [facility] 1538) [id number] POCT-GLUCOSE [id number] 16:45:00 Test Item Value Reference Range Interpretation Comments POC-GLUCOSE METER 183 mg/dL 70-110 H TESTED AT [place] [address] ([facility]) (test code = [facility] 1538) [address] BASIC METABOLIC [id number] 16:33:00 Test Item Value Reference Range Interpretation Comments SODIUM (BEAKER) 136 meq/L 136-145 (test code = 381) POTASSIUM (BEAKER) 4.2 meq/L 3.5-5.1 (test code = 379) CHLORIDE (BEAKER) 105 meq/L 98-107 (test code = 382) CO2 (BEAKER) (test 23 meq/L - code = 355) BLOOD UREA NITROGEN 16 mg/dL 7-21 (BEAKER) (test code = 354) CREATININE (BEAKER) 0.90 mg/dL 0.57-1.25 (test code = 358) GLUCOSE RANDOM 144 mg/dL 70-105 H (BEAKER) (test code = 652) CALCIUM (BEAKER) 8.8 mg/dL 8.4-10.2 (test code = 697) EGFR (BEAKER) (test 62 mL/min/1.73 ESTIMA KIANNA GFR IS code = 1092) sq m NOT ACCURATE CREATININE CLEARANCE IN PREDICTING GLOMERULAR FILTRATION RATE . ESTIMATED GFR I S NOT APPLICABLE FOR DIALYSIS PATIEN TS. CBC W/PLT COUNT & AUTO [id number] 16:25:00 Test Item Value Reference Range Interpretation Comments WHITE BLOOD CELL COUNT (BEAKER) 3.7 K/ L 3.5-10.5 (test code = 775) RED BLOOD CELL COUNT (BEAKER) 3.00 M/ L 3.93-5.22 L (test code = 761) HEMOGLOBIN (BEAKER) (test code = 7.8 GM/DL 11.2-15.7 L 410) HEMATOCRIT (BEAKER) (test code = 25.5 % 34.1-44.9 L 411) MEAN CORPUSCULAR VOLUME (BEAKER) 85.0 fL 79.4-94.8 (test code = 753) MEAN CORPUSCULAR HEMOGLOBIN 26.0 pg 25.6-32.2 (BEAKER) (test code = 751) MEAN CORPUSCULAR HEMOGLOBIN CONC 30.6 GM/DL 32.2-35.5 L (BEAKER) (test code = 752) RED CELL DISTRIBUTION WIDTH 16.1 % 11.7-14.4 H (BEAKER) (test code = 412) PLATELET COUNT (BEAKER) (test code 96 K/CU MM 150-450 L = 756) MEAN PLATELET VOLUME (BEAKER) 11.3 fL 9.4-12.3 (test code = 754) NUCLEATED RED BLOOD CELLS (BEAKER) 0 /100 WBC 0-0 (test code = 413) NEUTROPHILS RELATIVE PERCENT 81 % (BEAKER) (test code = 429) LYMPHOCYTES RELATIVE PERCENT 9 % (BEAKER) (test code = 430) MONOCYTES RELATIVE PERCENT 7 % (BEAKER) (test code = 431) EOSINOPHILS RELATIVE PERCENT 2 % (BEAKER) (test code = 432) BASOPHILS RELATIVE PERCENT 1 % (BEAKER) (test code = 437) NEUTROPHILS ABSOLUTE COUNT 2.99 K/ L 1.56-6.13 (BEAKER) (test code = 670) LYMPHOCYTES ABSOLUTE COUNT 0.32 K/ L 1.18-3.74 L (BEAKER) (test code = 414) MONOCYTES ABSOLUTE COUNT (BEAKER) 0.26 K/ L 0.24-0.36 (test code = 415) EOSINOPHILS ABSOLUTE COUNT 0.08 K/ L 0.04-0.36 (BEAKER) (test code = 416) BASOPHILS ABSOLUTE COUNT (BEAKER) 0.02 K/ L 0.01-0.08 (test code = 417) IMMATURE GRANULOCYTES-RELATIVE 0 % 0-1 PERCENT (BEAKER) (test code = 2801) POCT-GLUCOSE [id number] 11:54:00 Test Item Value Reference Range Interpretation Comments POC-GLUCOSE METER 213 mg/dL 70-110 H TESTED AT [facility] (test code = [facility] 1538) [id number] POCT-GLUCOSE [id number] 08:55:00 Test Item Value Reference Range Interpretation Comments POC-GLUCOSE METER 96 mg/dL 70-110 TESTED AT [place] [address] ([facility]) (test code = [facility] [id number] 1538) ALKALINE [id number] 21:56:00 Test Item Value Reference Range Interpretation Comments ALKALINE PHOSPHATASE (BEAKER) (test 145 U/L 40-150 code = 346) [id number] 21:56:00 Test Item Value Reference Range Interpretation Comments LIPASE (BEAKER) (test code = 749) 36 U/L 8-78 ALT (SGPT)2019-04-28 21:56:00 Test Item Value Reference Range Interpretation Comments ALT (SGPT) (BEAKER) (test code = 347) 14 U/L 6-55 AST (SGOT)2019-04-28 21:56:00 Test Item Value Reference Range Interpretation Comments AST (SGOT) (BEAKER) (test code = 353) 23 U/L 5-34 BASIC METABOLIC [id number] 21:56:00 Test Item Value Reference Range Interpretation Comments SODIUM (BEAKER) 136 meq/L 136-145 (test code = 381) POTASSIUM (BEAKER) 4.1 meq/L 3.5-5.1 (test code = 379) CHLORIDE (BEAKER) 105 meq/L 98-107 (test code = 382) CO2 (BEAKER) (test 24 meq/L 22-29 code = 355) BLOOD UREA NITROGEN 17 mg/dL 7-21 (BEAKER) (test code = 354) CREATININE (BEAKER) 0.94 mg/dL 0.57-1.25 (test code = 358) GLUCOSE RANDOM 108 mg/dL 70-105 H (BEAKER) (test code = 652) CALCIUM (BEAKER) 9.2 mg/dL 8.4-10.2 (test code = 697) EGFR (BEAKER) (test 59 mL/min/1.73 ESTIMA KIANNA GFR IS code = 1092) sq m NOT ACCURATE CREATININE CLEARANCE IN PREDICTING GLOMERULAR FILTRATION RATE . ESTIMATED GFR I S NOT APPLICABLE FOR DIALYSIS PATIEN TS. BILIRUBIN, ADULT [id number] 21:56:00 Test Item Value Reference Range Interpretation Comments BILIRUBIN TOTAL (BEAKER) (test code 0.8 mg/dL 0.2-1.2 = 377) [id number] 21:49:00 Test Item Value Reference Range Interpretation Comments PROTIME (BEAKER) (test code = 15.6 seconds 11.9-14.2 H 759) INR (BEAKER) (test code = 370) 1.3 <=5.9 PARTIAL THROMBOPLASTIN TIME 35.7 seconds 22.5-36.0 (BEAKER) (test code = 760) Effective 04/09/2019: PT Reference Range ChangeNew: 11.9-14.2 Previous: 11.7- 14.7RECOMMENDED COUMADIN/WARFARIN INR THERAPY RANGESSTANDARD DOSE: 2.0-3.0 Includes: PROPHYLAXIS for venous thrombosis, systemic embolization; TREATMENT for venous thrombosis and/or pulmonary embolus.HIGH RISK: Target INR is2.5-3.5 for patients wiht mechanical heart valves.CBC W/PLT COUNT & AUTO [id number] 21:42:00 Test Item Value Reference Range Interpretation Comments WHITE BLOOD CELL COUNT (BEAKER) 4.5 K/ L 3.5-10.5 (test code = 775) RED BLOOD CELL COUNT (BEAKER) 3.17 M/ L 3.93-5.22 L (test code = 761) HEMOGLOBIN (BEAKER) (test code = 8.4 GM/DL 11.2-15.7 L 410) HEMATOCRIT (BEAKER) (test code = 26.7 % 34.1-44.9 L 411) MEAN CORPUSCULAR VOLUME (BEAKER) 84.2 fL 79.4-94.8 (test code = 753) MEAN CORPUSCULAR HEMOGLOBIN 26.5 pg 25.6-32.2 (BEAKER) (test code = 751) MEAN CORPUSCULAR HEMOGLOBIN CONC 31.5 GM/DL 32.2-35.5 L (BEAKER) (test code = 752) RED CELL DISTRIBUTION WIDTH 16.4 % 11.7-14.4 H (BEAKER) (test code = 412) PLATELET COUNT (BEAKER) (test 101 K/CU MM 150-450 L code = 756) MEAN PLATELET VOLUME (BEAKER) 11.5 fL 9.4-12.3 (test code = 754) NUCLEATED RED BLOOD CELLS 0 /100 WBC 0-0 (BEAKER) (test code = 413) NEUTROPHILS RELATIVE PERCENT 83 % (BEAKER) (test code = 429) LYMPHOCYTES RELATIVE PERCENT 8 % (BEAKER) (test code = 430) MONOCYTES RELATIVE PERCENT 7 % (BEAKER) (test code = 431) EOSINOPHILS RELATIVE PERCENT 2 % (BEAKER) (test code = 432) BASOPHILS RELATIVE PERCENT 0 % (BEAKER) (test code = 437) NEUTROPHILS ABSOLUTE COUNT 3.72 K/ L 1.56-6.13 (BEAKER) (test code = 670) LYMPHOCYTES ABSOLUTE COUNT 0.36 K/ L 1.18-3.74 L (BEAKER) (test code = 414) MONOCYTES ABSOLUTE COUNT (BEAKER) 0.31 K/ L 0.24-0.36 (test code = 415) EOSINOPHILS ABSOLUTE COUNT 0.09 K/ L 0.04-0.36 (BEAKER) (test code = 416) BASOPHILS ABSOLUTE COUNT (BEAKER) 0.01 K/ L 0.01-0.08 (test code = 417) IMMATURE GRANULOCYTES-RELATIVE 0 % 0-1 PERCENT (BEAKER) (test code = 2801) U/S, [id number] 18:05:00Referring: Dr. Mohsen Dillarddminister 200 mL of albumin 25% (50 grams) IV x1 after paracentesis if3 or more liters removed.Send ascitic fluid for cell count and differential.Reason for Exam:->ascitesFINAL REPORT Exam: Ultrasound guided paracentesis Clinical History: AscitesConsent: Benefits and risks were explained to the patient who gave consent to the procedure. Complication: None immediate Procedure: The left lower quadrant was prepped and draped in usual sterile fashion. 2% lidocaine was used as the anesthetic. Under ultrasound guidance, a paracentesis catheter was inserted into the peritoneal cavity. Approximately 7100 cc of clear yellow ascitic fluid was aspirated. The catheter was removed. Hemostasis was achieved. Intravenous albumin was administered. The patient tolerated the procedure well without any adverse reactions and left the ultrasound department in stable condition. Impression: Ultrasound guided paracentesis as described. Procedure was performed by Shasha Hall PA-C under direct supervision of Dr. Bolanos Signed: Jr Bolanos MDReport Verified Date/Time: 04/09/2019 18:05:54 Reading Location: [address] Transitional Reading Room MR, ABDOMEN, [id number] 15:38:00Referring: Dr. Mohsen Downs Abdominal VesselsFINAL REPORT TECHNIQUE: MRI of the abdomen and pelvis WITHOUT and WITH intravenous contrast. INDICATION: screening for malignant neoplasm. COMPARISON: MRI from 09/20/2018. FINDINGS: LOWER THORAX: Small right and trace left pleural effusions. LIVER: Evaluation of the caudate and medial left lobes is suboptimal due to artifact from the endogastric clips. Nodular, cirrhotic liver.A cyst in segment VIII measures 2.1 cm and is unchanged. Additional cysts measure 0.6 cm in segment V and 0.7 cm in segment VIII and are also unchanged. A wedge-shaped arterial phase hyperenhancement the periphery of segment V measures 0.5 cm on axial arterial phase image 75 and is less prominent thanon the prior examination. This is most likely perfusional. A hyperenhancing lesion in segment III measures 0.5 cm on arterial phase image 76. No washout or pseudocapsule formation. This is unchanged. 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 BILIARY: Prior cholecystectomy. No biliary ductal dilatation or filling defect.SPLEEN: 17 cm splenomegaly.PANCREAS: Evaluation of the pancreas is suboptimal due to the endogastric clips. ADRENALS: No adrenal nodules.KIDNEYS/URETERS: Mild right hydronephrosis from an indeterminate cause. PERITONEUM/RETROPERITONEUM:Moderate volume ascites. There is a large amount of fluid which extends into the inguinal canal, likely due to a small right indirect hernia. A small amount of fluid superficial to the musculature of the left lower quadrant has multiple internal septations and most likely protrudes through an on visualized hernia in this region. There is a trace amount of fluid by the umbilicus. The small right obturator hernia contains fluid is seen on axial T2 fat-saturated image 16. The omentum is diffusely thickened. LYMPH NODES: No lymphadenopathy.VESSELS: Rectal varices. Low-grade, partial thrombus of the superior mesenteric vein is similar was slightly decreased in size compared to the prior examination. GITRACT: The bowel is diffusely edematous. The endogastric clips are unchanged in position. Rectal varices. UTERUS: Normal postmenopausal uterus which measures up to 7 cm in length with an endometrial thickness of 0.2 cm. OVARIES: Neither ovary is confidently visualized. However, the likely right ovary as seen on axial T2-weighted image 31 with be a normal postmenopausal appearance. A right adnexal cystic lesion measures 7.5 x 6.6 x 10.7 cm. The cystic lesion conforms to the contours of the pelvis andis most likely a peritoneal inclusion cyst. There is some layering T1 hyperintense material, likely blood. CERVIX: Nabothian cysts, otherwise unremarkable. BONES AND SOFT TISSUES: Unremarkable. IMPRESSION: Evaluation of the caudate and medial left lobes and pancreas are suboptimal due to the endogastric clips in the stomach. 1.No suspicious focal hepatic lesions. 2.An arterially enhancing lesion in segment V is unchanged and likely perfusional. 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 Close attention on follow-up imaging is recommended. 3.Mild right hydronephrosis from an indeterminate cause. If the patient is havin g symptoms, a CT could be obtained. 4.The fluid in the right inguinal canal is most likely an indirect right inguinal hernia which may extend from the right adnexal cystic structure. 5.The right adnexal cystic structure is most likely a peritoneal inclusion cyst. The T1 hyperintense material in this inguinal canal could be hemorrhage. A true right ovarian cyst is considered less likely given that this conforms to the contours and pelvis. In retrospect, this is similar to the examination from 10/10/2018. Close attention on follow-up imaging is recommended. 6.A small right obturator hernia contains ascites. 7.The diffusely thickened omentum is likely due to the portal hypertension. Close attention on follow-up examinations is recommended. 8.Cirrhosis with sequelae of portal hypertension including moderate volume ascites, splenomegaly, and rectal varices. Dilation of esophageal varices is suboptimal given the clips in the stomach. 9.The low-grade, partial superior mesenteric venous thrombus is similar to slightly decreased compared to the prior. Signed: Jeb Lopez MDReport Verified Date/Time: 04/09/2019 15:38:52 Reading Location: [facility] C013Y CT Body Reading Room MR, PELVIS, [id number] 15:38:00Referring: [facility]. Connolly [facility]: MRI of the abdomen and pelvis WITHOUT and WITH intravenous contrast. INDICATION: screening for malignant neoplasm. COMPARISON: MRI from 09/20/2018. FINDINGS: LOWER THORAX: Small right and trace left pleural effusions. LIVER: Evaluation of the caudate and medial left lobes is suboptimal due to artifact from the endogastric clips. Nodular, cirrhotic liver.A cyst in segment VIII measures 2.1 cm and is unchanged. Additional cysts measure 0.6 cm in segment V and 0.7 cm in segment VIII and are also unchanged. A wedge-shaped arterial phase hyperenhancement the periphery of segment V measures 0.5 cm on axial arterial phase image 75 and is less prominent thanon the prior examination. This is most likely perfusional. A hyperenhancing lesion in segment III measures 0.5 cm on arterial phase image 76. No washout or pseudocapsule formation. This is unchanged. 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 BILIARY: Prior cholecystectomy. No biliary ductal dilatation or filling defect.SPLEEN: 17 cm splenomegaly.PANCREAS: Evaluation of the pancreas is suboptimal due to the endogastric clips. ADRENALS: No adrenal nodules.KIDNEYS/URETERS: Mild right hydronephrosis from an indeterminate cause. PERITONEUM/RETROPERITONEUM:Moderate volume ascites. There is a large amount of fluid which extends into the inguinal canal, likely due to a small right indirect hernia. A small amount of fluid superficial to the musculature of the left lower quadrant has multiple internal septations and most likely protrudes through an on visualized hernia in this region. There is a trace amount of fluid by the umbilicus. The small right obturator hernia contains fluid is seen on axial T2 fat-saturated image 16. The omentum is diffusely thickened. LYMPH NODES: No lymphadenopathy.VESSELS: Rectal varices. Low-grade, partial thrombus of the superior mesenteric vein is similar was slightly decreased in size compared to the prior examination. GITRACT: The bowel is diffusely edematous. The endogastric clips are unchanged in position. Rectal varices. UTERUS: Normal postmenopausal uterus which measures up to 7 cm in length with an endometrial thickness of 0.2 cm. OVARIES: Neither ovary is confidently visualized. However, the likely right ovary as seen on axial T2- weighted image 31 with be a normal postmenopausal appearance. A right adnexal cystic lesion measures 7.5 x 6.6 x 10.7 cm. The cystic lesion conforms to the contours of the pelvis andis most likely a peritoneal inclusion cyst. There is some layering T1 hyperintense material, likely blood. CERVIX: Nabothian cysts, otherwise unremarkable. BONES AND SOFT TISSUES: Unremarkable. IMPRESSION: Evaluation of the caudate and medial left lobes and pancreas are suboptimal due to the endogastric clips in the stomach. 1.No suspicious focal hepatic lesions. 2.An arterially enhancing lesion in segment V is unchanged and likely perfusional. 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 Close attention on follow-up imaging is recommended. 3.Mild right hydronephrosis from an indeterminate cause. If the patient is having symptoms, a CT could be obtained. 4.The fluid in the right inguinal canal is most likely an indirect right inguinal hernia which may extend from the right adnexal cystic structure. 5.The right adnexal cystic structure is most likely a peritoneal inclusion cyst. The T1 hyperintense material in this inguinal canal could be hemorrhage. A true right ovarian cyst is considered less likely given that this conforms to the contours and pelvis. In retrospect, this is similar to the examination from 10/10/2018. Close attention on follow-up imaging is recommended. 6.A small right obturator hernia contains ascites. 7.The diffusely thickened omentum is likely due to the portal hypertension. Close attention on follow-up examinations is recommended. 8.Cirrhosis with sequelae of portal hypertension including moderate volume ascites, splenomegaly, and rectal varices. Dilation of esophageal varices is suboptimal given the clips in the stomach. 9.The low-grade, partial superior mesenteric venous thrombus is similar to slightly decreased compared to the prior. Signed: Jeb Lopez MDReport Verified Date/Time: 04/09/2019 15:38:52 Reading Location: [facility] C013Y CT Body Reading Room BODY FLUID CELL COUNT WITH [id number] 13:46:00 Test Item Value Reference Range Interpretation Comments APPEARANCE FLUID (BEAKER) (test Clear Clear code = 510) COLOR FLUID (BEAKER) (test code = Straw Colorless, Straw 511) RBC FLUID (BEAKER) (test code = 100 /cu mm <=1 H 513) ADJUSTED WBC FLUID (BEAKER) (test 23 /cu mm <=5 H code = 1691) LINING CELLS (BEAKER) (test code 0 /cu mm <=1 = 1590) NEUTROPHILS FLUID (BEAKER) (test 27 % code = 1656) LYMPHS FLUID (BEAKER) (test code 18 % = 488) MONO/MACROPHAGE FLUID (BEAKER) 55 % (test code = 489) EOSINOPHILS FLUID (BEAKER) (test 0 % code = 491) BASO FLUID (BEAKER) (test code = 0 % 492) CONTAINER BODY FLUID (BEAKER) EDTA Tube (test code = 2873) BLOOD GAS, [id number] 10:09:00 Test Item Value Reference Range Interpretation Comments PH ARTERIAL (BEAKER) (test code = 7.48 7.35-7.45 H 383) PCO2 ARTERIAL (BEAKER) (test code 35 mmHg 35-45 = 384) PO2 ARTERIAL (BEAKER) (test code = 99 mmHg 80-90 H 385) O2 SATURATION ARTERIAL (BEAKER) 97.9 % 96.0-97.0 H (test code = 386) HCO3 ARTERIAL (BEAKER) (test code 25 mmol/L 21-29 = 388) BASE EXCESS ARTERIAL (BEAKER) 1.5 mmol/L -2.0-3.0 (test code = 387) PATIENT TEMPERATURE (BEAKER) (test 37.0 C code = 1818) FIO2 (BEAKER) (test code = 1819) 21.0 % C. DIFFICILE GDH [id number] 18:16:00 Test Item Value Reference Range Interpretation Comments CDT TOXIN (test code Negative Negative = [id number]) CDT GDH ANTIGEN (test Negative Negative No ind ication of code = [id number]) Clostridi um difficile infection and n o colonization. Discontinue ent judi isolation and t herapy. Testing performed by [facility] Rapid Cassette Assay. For GDH, published sensitivity of the assay is 98.7% compared to cytotoxicity testing. For Toxin AB, published sensitivity is 87.8% and specificity 99.4% compared to cytotoxicity testing.Verification of kit performance was done by the [facility] prior to clinical use.COMPREHENSIVE METABOLIC [id number] 13:42:00 Test Item Value Reference Range Interpretation Comments TOTAL PROTEIN 8.2 gm/dL 6.0-8.3 (BEAKER) (test code = 770) ALBUMIN (BEAKER) 4.2 g/dL 3.5-5.0 (test code = 1145) ALKALINE PHOSPHATASE 92 U/L 40-150 (BEAKER) (test code = 346) BILIRUBIN TOTAL 1.6 mg/dL 0.2-1.2 H (BEAKER) (test code = 377) SODIUM (BEAKER) (test 141 meq/L 136-145 code = 381) POTASSIUM (BEAKER) 4.0 meq/L 3.5-5.1 (test code = 379) CHLORIDE (BEAKER) 109 meq/L 98-107 H (test code = 382) CO2 (BEAKER) (test 27 meq/L 22-29 code = 355) BLOOD UREA NITROGEN 12 mg/dL 7-21 (BEAKER) (test code = 354) CREATININE (BEAKER) 0.76 mg/dL 0.57-1.25 (test code = 358) GLUCOSE RANDOM 121 mg/dL 70-105 H (BEAKER) (test code = 652) CALCIUM (BEAKER) 9.8 mg/dL 8.4-10.2 (test code = 697) AST (SGOT) (BEAKER) 21 U/L 5-34 (test code = 353) ALT (SGPT) (BEAKER) 7 U/L 6-55 (test code = 347) EGFR (BEAKER) (test 75 mL/min/1.73 ESTIMA KIANNA GFR IS code = 1092) sq m NOT ACCURATE CREATININE CLEARANCE IN PREDICTING GLOMERULAR FILTRATION RATE . ESTIMATED GFR I S NOT APPLICABLE FOR DIALYSIS PATIEN TS. BILIRUBIN, [id number] 13:42:00 Test Item Value Reference Range Interpretation Comments BILIRUBIN DIRECT (BEAKER) (test 0.9 mg/dL 0.1-0.5 H code = 706) CBC W/PLT COUNT & AUTO [id number] 13:24:00 Test Item Value Reference Range Interpretation Comments WHITE BLOOD CELL COUNT (BEAKER) 2.3 K/ L 3.5-10.5 L (test code = 775) RED BLOOD CELL COUNT (BEAKER) 3.47 M/ L 3.93-5.22 L (test code = 761) HEMOGLOBIN (BEAKER) (test code = 8.7 GM/DL 11.2-15.7 L 410) HEMATOCRIT (BEAKER) (test code = 28.8 % 34.1-44.9 L 411) MEAN CORPUSCULAR VOLUME (BEAKER) 83.0 fL 79.4-94.8 (test code = 753) MEAN CORPUSCULAR HEMOGLOBIN 25.1 pg 25.6-32.2 L (BEAKER) (test code = 751) MEAN CORPUSCULAR HEMOGLOBIN CONC 30.2 GM/DL 32.2-35.5 L (BEAKER) (test code = 752) RED CELL DISTRIBUTION WIDTH 20.4 % 11.7-14.4 H (BEAKER) (test code = 412) PLATELET COUNT (BEAKER) (test code 85 K/CU MM 150-450 L = 756) MEAN PLATELET VOLUME (BEAKER) 10.7 fL 9.4-12.3 (test code = 754) NUCLEATED RED BLOOD CELLS (BEAKER) 0 /100 WBC 0-0 (test code = 413) NEUTROPHILS RELATIVE PERCENT 78 % (BEAKER) (test code = 429) LYMPHOCYTES RELATIVE PERCENT 13 % (BEAKER) (test code = 430) MONOCYTES RELATIVE PERCENT 7 % (BEAKER) (test code = 431) EOSINOPHILS RELATIVE PERCENT 2 % (BEAKER) (test code = 432) BASOPHILS RELATIVE PERCENT 1 % (BEAKER) (test code = 437) NEUTROPHILS ABSOLUTE COUNT 1.75 K/ L 1.56-6.13 (BEAKER) (test code = 670) LYMPHOCYTES ABSOLUTE COUNT 0.29 K/ L 1.18-3.74 L (BEAKER) (test code = 414) MONOCYTES ABSOLUTE COUNT (BEAKER) 0.15 K/ L 0.24-0.36 L (test code = 415) EOSINOPHILS ABSOLUTE COUNT 0.05 K/ L 0.04-0.36 (BEAKER) (test code = 416) BASOPHILS ABSOLUTE COUNT (BEAKER) 0.02 K/ L 0.01-0.08 (test code = 417) IMMATURE GRANULOCYTES-RELATIVE 0 % 0-1 PERCENT (BEAKER) (test code = 2801) PROTHROMBIN [id number] 13:21:00 Test Item Value Reference Range Interpretation Comments PROTIME (BEAKER) (test code = 17.2 seconds 11.7-14.7 H 759) INR (BEAKER) (test code = 370) 1.5 <=5.9 RECOMMENDED COUMADIN/WARFARIN INR THERAPY RANGESSTANDARD DOSE: 2.0 - 3.0 Includes: PROPHYLAXIS forvenous thrombosis, systemic embolization; TREATMENT for venous thrombosis and/or pulmonary embolus.HIGH RISK: Target INR is 2.5-3.5 for patients with mechanical heart valves.TISSUE [id number] 14:09:00Surgical Pathology Report Case: [id number] Authorizing Provider: Jose Alfredo Golden Aba, MD Collected: 02/17/2019 1650 Ordering Location: [facility] Received: 02/18/2019 0835 PERIOPERATIVE SERVICES Pathologist: Maricruz Nixon MD Specimens: A) - Hernia Sac, Umbilical, HERNIA SAC, UMBILICAL TISSUE B) -Hernia Sac, Umbilical, HERNIA SAC A. SKIN AND UMBILICAL HERNIA, EXCISION: - SKIN WITH ULCERATION, KERATOSIS, ACUTE INFLAMMATION, DERMAL FIBROSIS AND REACTIVE/HYPERPLASTIC CHANGES - UNDERLYING FIBROMEMBRANOUS TISSUE WITH GRANULATION TISSUE AND FIBRINOUS EXUDATE, COMPATIBLE WITH HERNIA SACB. SOFT TISSUE, UMBILICAL HERNIA, HERNIORRHAPHY: - FIBROADIPOSE TISSUE WITH REACTIVE CHANGES AND CHRONIC INFLAMMATION, COMPATIBLE WITH HERNIA SACSigning Pathologist Direct Phone Line: [phone] signed by Maricruz Nixon MD on 03/01/2019 at 2:09 [id number], [id number] diagnosis: Umbilical hernia Postoperative diagnosis: umbilical hernia A, B. Hernia sac, umbilical tissue This case is received in two parts.Part A. Received in formalin labeled "hernia sac, umbilical" is a pratt-pink ovoid portion of skin excised to a depth of 0.8cm measuring 9.5 x 4.5 x 1.5 cm.The epidermal surface displays a central area of excoriation and ulceration measuring 2.5 x 2.5 cm, which is located 0.9 cm from the nearest skin margin. The undersurface displays diffuse fibromembranous saccular tissue.Occup Ther sections are submitted from the specimen.Section code: Occup Ther sections are submitted in cassettes A1-A2 with the ulceration submitted in A1, and only the saccular wall was submitted in A2.Part B. Received in formalin labeled "hernia sac, umbilical" is a fibromembranous saccular tissue measuring 9.5 x 5 x 0.8 cm.One surface is pratt-pink, hyperemic and smooth, and the opposite surface displays lobulated attached fat. Occup Ther sections are submitted in cassette B1. KM/ewPerformed.HEMOGLOBIN AND [id number] 20:22:00 Test Item Value Reference Range Interpretation Comments HEMOGLOBIN (BEAKER) (test code = 8.5 GM/DL 11.2-15.7 L 410) HEMATOCRIT ([facility]) (test code = 27.4 % 34.1-44.9 L 411) Post transfusionPOCT-GLUCOSE [id number] 18:19:00 Test Item Value Reference Range Interpretation Comments POC-GLUCOSE METER 145 mg/dL 70-110 H TESTED AT [facility] [address] ([facility]) (test code = [place] 15[address]) [id number] POCT-GLUCOSE [id number] 08:37:00 Test Item Value Reference Range Interpretation Comments POC-GLUCOSE METER 119 mg/dL 70-110 H TESTED AT [facility] [address] ([facility]) (test code = [place] 15[address]) [address] HEPATIC FUNCTION [id number] 07:34:00 Test Item Value Reference Range Interpretation Comments TOTAL PROTEIN (AKER) (test code = 6.9 gm/dL 6.0-8.3 770) ALBUMIN (BEAKER) (test code = 1145) 4.3 g/dL 3.5-5.0 BILIRUBIN TOTAL (BEAKER) (test code 1.1 mg/dL 0.2-1.2 = 377) BILIRUBIN DIRECT (BEAKER) (test 0.6 mg/dL 0.1-0.5 H code = 706) ALKALINE PHOSPHATASE (BEAKER) (test 77 U/L 40-150 code = 346) AST (SGOT) (BEAKER) (test code = 13 U/L 5-34 353) ALT (SGPT) (BEAKER) (test code = < U/L 6-55 L 347) [id number] 07:18:00 Test Item Value Reference Range Interpretation Comments PHOSPHORUS (BEAKER) (test code = 2.1 mg/dL 2.3-4.7 L 604) [id number] 07:18:00 Test Item Value Reference Range Interpretation Comments MAGNESIUM (BEAKER) (test code = 2.0 mg/dL 1.6-2.6 627) BASIC METABOLIC [id number] 07:18:00 Test Item Value Reference Range Interpretation Comments SODIUM (BEAKER) 137 meq/L 136-145 (test code = 381) POTASSIUM (BEAKER) 4.1 meq/L 3.5-5.1 (test code = 379) CHLORIDE (BEAKER) 103 meq/L 98-107 (test code = 382) CO2 (BEAKER) (test 27 meq/L 22-29 code = 355) BLOOD UREA NITROGEN 9 mg/dL 7-21 (BEAKER) (test code = 354) CREATININE (BEAKER) 0.81 mg/dL 0.57-1.25 (test code = 358) GLUCOSE RANDOM 115 mg/dL 70-105 H (BEAKER) (test code = 652) CALCIUM (BEAKER) 9.5 mg/dL 8.4-10.2 (test code = 697) EGFR (BEAKER) (test 70 mL/min/1.73 ESTIMA KIANNA GFR IS code = 1092) sq m NOT ACCURATE CREATININE CLEARANCE IN PREDICTING GLOMERULAR FILTRATION RATE . ESTIMATED GFR I S NOT APPLICABLE FOR DIALYSIS PATIEN TS. PROTHROMBIN [id number] 06:49:00 Test Item Value Reference Range Interpretation Comments PROTIME (BEAKER) (test code = 18.1 seconds 11.7-14.7 H 759) INR (BEAKER) (test code = 370) 1.5 <=5.9 RECOMMENDED COUMADIN/WARFARIN INR THERAPY RANGESSTANDARD DOSE: 2.0 - 3.0 Includes: PROPHYLAXIS forvenous thrombosis, systemic embolization; TREATMENT for venous thrombosis and/or pulmonary embolus.HIGH RISK: Target INR is 2.5-3.5 for patients with mechanical heart valves.[id number] 06:49:00 Test Item Value Reference Range Interpretation Comments PARTIAL THROMBOPLASTIN TIME 45.8 seconds 22.5-36.0 H (BEAKER) (test code = 760) CBC W/PLT COUNT & AUTO [id number] 06:34:00 Test Item Value Reference Range Interpretation Comments WHITE BLOOD CELL COUNT (BEAKER) 2.5 K/ L 3.5-10.5 L (test code = 775) RED BLOOD CELL COUNT (BEAKER) 2.95 M/ L 3.93-5.22 L (test code = 761) HEMOGLOBIN (BEAKER) (test code = 7.1 GM/DL 11.2-15.7 L 410) HEMATOCRIT (BEAKER) (test code = 23.5 % 34.1-44.9 L 411) MEAN CORPUSCULAR VOLUME (BEAKER) 79.7 fL 79.4-94.8 (test code = 753) MEAN CORPUSCULAR HEMOGLOBIN 24.1 pg 25.6-32.2 L (BEAKER) (test code = 751) MEAN CORPUSCULAR HEMOGLOBIN CONC 30.2 GM/DL 32.2-35.5 L (BEAKER) (test code = 752) RED CELL DISTRIBUTION WIDTH 17.7 % 11.7-14.4 H (BEAKER) (test code = 412) PLATELET COUNT (BEAKER) (test 100 K/CU MM 150-450 L code = 756) MEAN PLATELET VOLUME (BEAKER) 10.4 fL 9.4-12.3 (test code = 754) NUCLEATED RED BLOOD CELLS 0 /100 WBC 0-0 (BEAKER) (test code = 413) NEUTROPHILS RELATIVE PERCENT 77 % (BEAKER) (test code = 429) LYMPHOCYTES RELATIVE PERCENT 12 % (BEAKER) (test code = 430) MONOCYTES RELATIVE PERCENT 7 % (BEAKER) (test code = 431) EOSINOPHILS RELATIVE PERCENT 3 % (BEAKER) (test code = 432) BASOPHILS RELATIVE PERCENT 0 % (BEAKER) (test code = 437) NEUTROPHILS ABSOLUTE COUNT 1.90 K/ L 1.56-6.13 (BEAKER) (test code = 670) LYMPHOCYTES ABSOLUTE COUNT 0.30 K/ L 1.18-3.74 L (BEAKER) (test code = 414) MONOCYTES ABSOLUTE COUNT (BEAKER) 0.17 K/ L 0.24-0.36 L (test code = 415) EOSINOPHILS ABSOLUTE COUNT 0.07 K/ L 0.04-0.36 (BEAKER) (test code = 416) BASOPHILS ABSOLUTE COUNT (BEAKER) 0.01 K/ L 0.01-0.08 (test code = 417) IMMATURE GRANULOCYTES-RELATIVE 0 % 0-1 PERCENT (BEAKER) (test code = 2801) POCT-GLUCOSE [id number] 22:02:00 Test Item Value Reference Range Interpretation Comments POC-GLUCOSE METER 155 mg/dL 70-110 H TESTED AT [place] [address] ([facility]) (test code = [facility] 1538) [id number] POCT-GLUCOSE [id number] 17:36:00 Test Item Value Reference Range Interpretation Comments POC-GLUCOSE METER 149 mg/dL 70-110 H TESTED AT [place] [address] ([facility]) (test code = [facility] 1538) [id number] POCT-GLUCOSE [id number] 12:17:00 Test Item Value Reference Range Interpretation Comments POC-GLUCOSE METER 170 mg/dL 70-110 H TESTED AT [place] [address] ([facility]) (test code = [facility] 1538) [address] HEPATIC FUNCTION [id number] 12:02:00 Test Item Value Reference Range Interpretation Comments TOTAL PROTEIN (BEAKER) (test code = 6.5 gm/dL 6.0-8.3 770) ALBUMIN (BEAKER) (test code = 1145) 4.0 g/dL 3.5-5.0 BILIRUBIN TOTAL (BEAKER) (test code 1.1 mg/dL 0.2-1.2 = 377) BILIRUBIN DIRECT (BEAKER) (test 0.7 mg/dL 0.1-0.5 H code = 706) ALKALINE PHOSPHATASE (BEAKER) (test 87 U/L 40-150 code = 346) AST (SGOT) (BEAKER) (test code = 17 U/L 5-34 353) ALT (SGPT) (BEAKER) (test code = < U/L 6-55 L 347) POCT-GLUCOSE [id number] 08:33:00 Test Item Value Reference Range Interpretation Comments POC-GLUCOSE METER 170 mg/dL 70-110 H TESTED AT [facility] 6720 (BEAKER) (test code = [facility] [place] 1538) [address] [id number] 07:41:00 Test Item Value Reference Range Interpretation Comments PHOSPHORUS (BEAKER) (test code = 2.5 mg/dL 2.3-4.7 604) [id number] 07:41:00 Test Item Value Reference Range Interpretation Comments MAGNESIUM (BEAKER) (test code = 1.9 mg/dL 1.6-2.6 627) BASIC METABOLIC [id number] 07:41:00 Test Item Value Reference Range Interpretation Comments SODIUM (BEAKER) 135 meq/L 136-145 L (test code = 381) POTASSIUM (BEAKER) 4.0 meq/L 3.5-5.1 (test code = 379) CHLORIDE (BEAKER) 102 meq/L 98-107 (test code = 382) CO2 (BEAKER) (test 25 meq/L 22-29 code = 355) BLOOD UREA NITROGEN 7 mg/dL 7-21 (BEAKER) (test code = 354) CREATININE (BEAKER) 0.81 mg/dL 0.57-1.25 (test code = 358) GLUCOSE RANDOM 105 mg/dL 70-105 (BEAKER) (test code = 652) CALCIUM (BEAKER) 9.1 mg/dL 8.4-10.2 (test code = 697) EGFR (BEAKER) (test 70 mL/min/1.73 ESTIMA KIANNA GFR IS code = 1092) sq m NOT ACCURATE CREATININE CLEARANCE IN PREDICTING GLOMERULAR FILTRATION RATE . ESTIMATED GFR I S NOT APPLICABLE FOR DIALYSIS PATIEN TS. CBC W/PLT COUNT & AUTO [id number] 06:59:00 Test Item Value Reference Range Interpretation Comments WHITE BLOOD CELL COUNT (BEAKER) 3.3 K/ L 3.5-10.5 L (test code = 775) RED BLOOD CELL COUNT (BEAKER) 2.94 M/ L 3.93-5.22 L (test code = 761) HEMOGLOBIN (BEAKER) (test code = 7.1 GM/DL 11.2-15.7 L 410) HEMATOCRIT (BEAKER) (test code = 23.4 % 34.1-44.9 L 411) MEAN CORPUSCULAR VOLUME (BEAKER) 79.6 fL 79.4-94.8 (test code = 753) MEAN CORPUSCULAR HEMOGLOBIN 24.1 pg 25.6-32.2 L (BEAKER) (test code = 751) MEAN CORPUSCULAR HEMOGLOBIN CONC 30.3 GM/DL 32.2-35.5 L (BEAKER) (test code = 752) RED CELL DISTRIBUTION WIDTH 17.5 % 11.7-14.4 H (BEAKER) (test code = 412) PLATELET COUNT (BEAKER) (test code 91 K/CU MM 150-450 L = 756) MEAN PLATELET VOLUME (BEAKER) 10.3 fL 9.4-12.3 (test code = 754) NUCLEATED RED BLOOD CELLS (BEAKER) 0 /100 WBC 0-0 (test code = 413) NEUTROPHILS RELATIVE PERCENT 81 % (BEAKER) (test code = 429) LYMPHOCYTES RELATIVE PERCENT 8 % (BEAKER) (test code = 430) MONOCYTES RELATIVE PERCENT 8 % (BEAKER) (test code = 431) EOSINOPHILS RELATIVE PERCENT 2 % (BEAKER) (test code = 432) BASOPHILS RELATIVE PERCENT 1 % (BEAKER) (test code = 437) NEUTROPHILS ABSOLUTE COUNT 2.66 K/ L 1.56-6.13 (BEAKER) (test code = 670) LYMPHOCYTES ABSOLUTE COUNT 0.26 K/ L 1.18-3.74 L (BEAKER) (test code = 414) MONOCYTES ABSOLUTE COUNT (BEAKER) 0.25 K/ L 0.24-0.36 (test code = 415) EOSINOPHILS ABSOLUTE COUNT 0.07 K/ L 0.04-0.36 (BEAKER) (test code = 416) BASOPHILS ABSOLUTE COUNT (BEAKER) 0.02 K/ L 0.01-0.08 (test code = 417) IMMATURE GRANULOCYTES-RELATIVE 0 % 0-1 PERCENT (BEAKER) (test code = 2806) [id number] 06:40:00 Test Item Value Reference Range Interpretation Comments PARTIAL THROMBOPLASTIN TIME 48.5 seconds 22.5-36.0 H (BEAKER) (test code = 760) PROTHROMBIN [id number] 06:39:00 Test Item Value Reference Range Interpretation Comments PROTIME (BEAKER) (test code = 18.9 seconds 11.7-14.7 H 759) INR (BEAKER) (test code = 370) 1.6 <=5.9 RECOMMENDED COUMADIN/WARFARIN INR THERAPY RANGESSTANDARD DOSE: 2.0 - 3.0 Includes: PROPHYLAXIS forvenous thrombosis, systemic embolization; TREATMENT for venous thrombosis and/or pulmonary embolus.HIGH RISK: Target INR is 2.5-3.5 for patients with mechanical heart valves.POCT-GLUCOSE [id number] 11:47:00 Test Item Value Reference Range Interpretation Comments POC-GLUCOSE METER 199 mg/dL 70-110 H TESTED AT [place] [address] ([facility]) (test code = [facility] 1538) [id number] POCT-GLUCOSE [id number] 08:19:00 Test Item Value Reference Range Interpretation Comments POC-GLUCOSE METER 135 mg/dL 70-110 H TESTED AT [place] [address] ([facility]) (test code = [facility] 1538) [id number] 04:22:00 Test Item Value Reference Range Interpretation Comments PHOSPHORUS (BEAKER) (test code = 2.8 mg/dL 2.3-4.7 604) [id number] 04:22:00 Test Item Value Reference Range Interpretation Comments MAGNESIUM (BEAKER) (test code = 2.0 mg/dL 1.6-2.6 627) BASIC METABOLIC [id number] 04:22:00 Test Item Value Reference Range Interpretation Comments SODIUM (BEAKER) 134 meq/L 136-145 L (test code = 381) POTASSIUM (BEAKER) 4.1 meq/L 3.5-5.1 (test code = 379) CHLORIDE (BEAKER) 103 meq/L 98-107 (test code = 382) CO2 (BEAKER) (test 26 meq/L 22-29 code = 355) BLOOD UREA NITROGEN 8 mg/dL 7-21 (BEAKER) (test code = 354) CREATININE (BEAKER) 0.93 mg/dL 0.57-1.25 (test code = 358) GLUCOSE RANDOM 131 mg/dL 70-105 H (BEAKER) (test code = 652) CALCIUM (BEAKER) 8.6 mg/dL 8.4-10.2 (test code = 697) EGFR (BEAKER) (test 60 mL/min/1.73 ESTIMA KIANNA GFR IS code = 1092) sq m NOT ACCURATE CREATININE CLEARANCE IN PREDICTING GLOMERULAR FILTRATION RATE . ESTIMATED GFR I S NOT APPLICABLE FOR DIALYSIS PATIEN TS. HEPATIC FUNCTION [id number] 04:22:00 Test Item Value Reference Range Interpretation Comments TOTAL PROTEIN (BEAKER) (test code = 6.6 gm/dL 6.0-8.3 770) ALBUMIN (BEAKER) (test code = 1145) 3.6 g/dL 3.5-5.0 BILIRUBIN TOTAL (BEAKER) (test code 1.0 mg/dL 0.2-1.2 = 377) BILIRUBIN DIRECT (BEAKER) (test 0.7 mg/dL 0.1-0.5 H code = 706) ALKALINE PHOSPHATASE (BEAKER) (test 123 U/L 40-150 code = 346) AST (SGOT) (BEAKER) (test code = 31 U/L 5-34 353) ALT (SGPT) (BEAKER) (test code = 11 U/L 6-55 347) [id number] 04:17:00 Test Item Value Reference Range Interpretation Comments PARTIAL THROMBOPLASTIN TIME 44.5 seconds 22.5-36.0 H (BEAKER) (test code = 760) PROTHROMBIN [id number] 04:16:00 Test Item Value Reference Range Interpretation Comments PROTIME (BEAKER) (test code = 18.7 seconds 11.7-14.7 H 759) INR (BEAKER) (test code = 370) 1.5 <=5.9 RECOMMENDED COUMADIN/WARFARIN INR THERAPY RANGESSTANDARD DOSE: 2.0 - 3.0 Includes: PROPHYLAXIS forvenous thrombosis, systemic embolization; TREATMENT for venous thrombosis and/or pulmonary embolus.HIGH RISK: Target INR is 2.5-3.5 for patients with mechanical heart valves.CBC W/PLT COUNT & AUTO DIFFERENTIAL 2019-02-19 04:05:00 Test Item Value Reference Range Interpretation Comments WHITE BLOOD CELL COUNT (BEAKER) 4.2 K/ L 3.5-10.5 (test code = 775) RED BLOOD CELL COUNT (BEAKER) 3.08 M/ L 3.93-5.22 L (test code = 761) HEMOGLOBIN (BEAKER) (test code = 7.4 GM/DL 11.2-15.7 L 410) HEMATOCRIT (BEAKER) (test code = 24.6 % 34.1-44.9 L 411) MEAN CORPUSCULAR VOLUME (BEAKER) 79.9 fL 79.4-94.8 (test code = 753) MEAN CORPUSCULAR HEMOGLOBIN 24.0 pg 25.6-32.2 L (BEAKER) (test code = 751) MEAN CORPUSCULAR HEMOGLOBIN CONC 30.1 GM/DL 32.2-35.5 L (BEAKER) (test code = 752) RED CELL DISTRIBUTION WIDTH 17.6 % 11.7-14.4 H (BEAKER) (test code = 412) PLATELET COUNT (BEAKER) (test 109 K/CU MM 150-450 L code = 756) MEAN PLATELET VOLUME (BEAKER) 10.4 fL 9.4-12.3 (test code = 754) NUCLEATED RED BLOOD CELLS 0 /100 WBC 0-0 (BEAKER) (test code = 413) NEUTROPHILS RELATIVE PERCENT 83 % (BEAKER) (test code = 429) LYMPHOCYTES RELATIVE PERCENT 8 % (BEAKER) (test code = 430) MONOCYTES RELATIVE PERCENT 7 % (BEAKER) (test code = 431) EOSINOPHILS RELATIVE PERCENT 2 % (BEAKER) (test code = 432) BASOPHILS RELATIVE PERCENT 0 % (BEAKER) (test code = 437) NEUTROPHILS ABSOLUTE COUNT 3.49 K/ L 1.56-6.13 (BEAKER) (test code = 670) LYMPHOCYTES ABSOLUTE COUNT 0.33 K/ L 1.18-3.74 L (BEAKER) (test code = 414) MONOCYTES ABSOLUTE COUNT (BEAKER) 0.29 K/ L 0.24-0.36 (test code = 415) EOSINOPHILS ABSOLUTE COUNT 0.09 K/ L 0.04-0.36 (BEAKER) (test code = 416) BASOPHILS ABSOLUTE COUNT (BEAKER) 0.01 K/ L 0.01-0.08 (test code = 417) IMMATURE GRANULOCYTES-RELATIVE 0 % 0-1 PERCENT (BEAKER) (test code = 2801) POCT-GLUCOSE [id number] 22:59:00 Test Item Value Reference Range Interpretation Comments POC-GLUCOSE METER 145 mg/dL 70-110 H TESTED AT [place] [address] ([facility]) (test code = [facility] 1538) [id number] POCT-GLUCOSE [id number] 22:50:00 Test Item Value Reference Range Interpretation Comments POC-GLUCOSE METER 158 mg/dL 70-110 H TESTED AT [place] [address] ([facility]) (test code = [facility] 1538) [id number] POCT-GLUCOSE [id number] 11:26:00 Test Item Value Reference Range Interpretation Comments POC-GLUCOSE METER 175 mg/dL 70-110 H TESTED AT [place] [address] ([facility]) (test code = [facility] 1538) [address] RAD, CHEST, 1 VIEW, NON [id number] 08:49:00Referring: Dr. Mohsen Padron for exam:->PostopShould this be performed at the bedside?-> YesFINAL REPORT TECHNIQUE: Frontal chest radiograph dated 02/18/2019. CLINICAL HISTORY: Postoperative COMPARISON STUDY: Chest radiograph dated 02/16/2019 IMPRESSION: Right pleural effusion has increased. Left lung is clear. No pleural effusion or pneumothorax. Cardiomediastinal silhoue tte is stable in size. No pulmonary edema. Bones are osteopenic. Signed: Minna House MDReportVerified Date/Time: 02/18/2019 08:49:26 Reading Location: [facility] Radiology Reading Room POCT-GLUCOSE [id number] 08:00:00 Test Item Value Reference Range Interpretation Comments POC-GLUCOSE METER 133 mg/dL 70-110 H TESTED AT [place] [address] ([facility]) (test code = [facility] 1538) [address] HEPATIC FUNCTION [id number] 04:58:00 Test Item Value Reference Range Interpretation Comments TOTAL PROTEIN ([facility]) (test code = 7.1 gm/dL 6.0-8.3 770) ALBUMIN ([facility]) (test code = 1145) 3.6 g/dL 3.5-5.0 BILIRUBIN TOTAL (BEAKER) (test code 1.1 mg/dL 0.2-1.2 = 377) BILIRUBIN DIRECT (BEAKER) (test 0.9 mg/dL 0.1-0.5 H code = 706) ALKALINE PHOSPHATASE (BEAKER) (test 139 U/L 40-150 code = 346) AST (SGOT) (BEAKER) (test code = 62 U/L 5-34 H 353) ALT (SGPT) (BEAKER) (test code = 14 U/L 6-55 347) [id number] 04:32:00 Test Item Value Reference Range Interpretation Comments PARTIAL THROMBOPLASTIN TIME 40.2 seconds 22.5-36.0 H (BEAKER) (test code = 760) PROTHROMBIN [id number] 04:31:00 Test Item Value Reference Range Interpretation Comments PROTIME (BEAKER) (test code = 17.5 seconds 11.7-14.7 H 759) INR (BEAKER) (test code = 370) 1.4 <=5.9 RECOMMENDED COUMADIN/WARFARIN INR THERAPY RANGESSTANDARD DOSE: 2.0 - 3.0 Includes: PROPHYLAXIS forvenous thrombosis, systemic embolization; TREATMENT for venous thrombosis and/or pulmonary embolus.HIGH RISK: Target INR is 2.5-3.5 for patients with mechanical heart valves.[id number] 04:30:00 Test Item Value Reference Range Interpretation Comments PHOSPHORUS (BEAKER) (test code = 3.6 mg/dL 2.3-4.7 604) [id number] 04:30:00 Test Item Value Reference Range Interpretation Comments MAGNESIUM (BEAKER) (test code = 1.9 mg/dL 1.6-2.6 627) BASIC METABOLIC [id number] 04:30:00 Test Item Value Reference Range Interpretation Comments SODIUM (BEAKER) 137 meq/L 136-145 (test code = 381) POTASSIUM (BEAKER) 4.4 meq/L 3.5-5.1 (test code = 379) CHLORIDE (BEAKER) 105 meq/L 98-107 (test code = 382) CO2 (BEAKER) (test 24 meq/L 22-29 code = 355) BLOOD UREA NITROGEN 11 mg/dL 7-21 (BEAKER) (test code = 354) CREATININE (BEAKER) 0.98 mg/dL 0.57-1.25 (test code = 358) GLUCOSE RANDOM 129 mg/dL 70-105 H (BEAKER) (test code = 652) CALCIUM (BEAKER) 9.0 mg/dL 8.4-10.2 (test code = 697) EGFR (BEAKER) (test 56 mL/min/1.73 ESTIMA KIANNA GFR IS code = 1092) sq m NOT ACCURATE CREATININE CLEARANCE IN PREDICTING GLOMERULAR FILTRATION RATE . ESTIMATED GFR I S NOT APPLICABLE FOR DIALYSIS PATIEN TS. CBC W/PLT COUNT & AUTO [id number] 04:14:00 Test Item Value Reference Range Interpretation Comments WHITE BLOOD CELL COUNT (BEAKER) 4.1 K/ L 3.5-10.5 (test code = 775) RED BLOOD CELL COUNT (BEAKER) 3.40 M/ L 3.93-5.22 L (test code = 761) HEMOGLOBIN (BEAKER) (test code = 8.1 GM/DL 11.2-15.7 L 410) HEMATOCRIT (BEAKER) (test code = 27.6 % 34.1-44.9 L 411) MEAN CORPUSCULAR VOLUME (BEAKER) 81.2 fL 79.4-94.8 (test code = 753) MEAN CORPUSCULAR HEMOGLOBIN 23.8 pg 25.6-32.2 L (BEAKER) (test code = 751) MEAN CORPUSCULAR HEMOGLOBIN CONC 29.3 GM/DL 32.2-35.5 L (BEAKER) (test code = 752) RED CELL DISTRIBUTION WIDTH 17.7 % 11.7-14.4 H (BEAKER) (test code = 412) PLATELET COUNT (BEAKER) (test 114 K/CU MM 150-450 L code = 756) MEAN PLATELET VOLUME (BEAKER) 10.2 fL 9.4-12.3 (test code = 754) NUCLEATED RED BLOOD CELLS 0 /100 WBC 0-0 (BEAKER) (test code = 413) NEUTROPHILS RELATIVE PERCENT 83 % (BEAKER) (test code = 429) LYMPHOCYTES RELATIVE PERCENT 8 % (BEAKER) (test code = 430) MONOCYTES RELATIVE PERCENT 8 % (BEAKER) (test code = 431) EOSINOPHILS RELATIVE PERCENT 1 % (BEAKER) (test code = 432) BASOPHILS RELATIVE PERCENT 1 % (BEAKER) (test code = 437) NEUTROPHILS ABSOLUTE COUNT 3.36 K/ L 1.56-6.13 (BEAKER) (test code = 670) LYMPHOCYTES ABSOLUTE COUNT 0.32 K/ L 1.18-3.74 L (BEAKER) (test code = 414) MONOCYTES ABSOLUTE COUNT (BEAKER) 0.32 K/ L 0.24-0.36 (test code = 415) EOSINOPHILS ABSOLUTE COUNT 0.05 K/ L 0.04-0.36 (BEAKER) (test code = 416) BASOPHILS ABSOLUTE COUNT (BEAKER) 0.02 K/ L 0.01-0.08 (test code = 417) IMMATURE GRANULOCYTES-RELATIVE 0 % 0-1 PERCENT (BEAKER) (test code = 2801) POCT-GLUCOSE [id number] 21:43:00 Test Item Value Reference Range Interpretation Comments POC-GLUCOSE METER 156 mg/dL 70-110 H TESTED AT [facility] 6720 (BEAKER) (test code = [facility] [place] 1538) [id number] 21:01:00 Test Item Value Reference Range Interpretation Comments MAGNESIUM (BEAKER) (test code = 1.8 mg/dL 1.6-2.6 627) BASIC METABOLIC [id number] 21:01:00 Test Item Value Reference Range Interpretation Comments SODIUM (BEAKER) 135 meq/L 136-145 L (test code = 381) POTASSIUM (BEAKER) 4.4 meq/L 3.5-5.1 (test code = 379) CHLORIDE (BEAKER) 104 meq/L 98-107 (test code = 382) CO2 (BEAKER) (test 24 meq/L 22-29 code = 355) BLOOD UREA NITROGEN 11 mg/dL 7-21 (BEAKER) (test code = 354) CREATININE (BEAKER) 0.92 mg/dL 0.57-1.25 (test code = 358) GLUCOSE RANDOM 160 mg/dL 70-105 H (BEAKER) (test code = 652) CALCIUM (BEAKER) 8.8 mg/dL 8.4-10.2 (test code = 697) EGFR (BEAKER) (test 60 mL/min/1.73 ESTIMA KIANNA GFR IS code = 1092) sq m NOT ACCURATE CREATININE CLEARANCE IN PREDICTING GLOMERULAR FILTRATION RATE . ESTIMATED GFR I S NOT APPLICABLE FOR DIALYSIS PATIEN TS. HEPATIC FUNCTION [id number] 21:01:00 Test Item Value Reference Range Interpretation Comments TOTAL PROTEIN (BEAKER) (test code = 7.1 gm/dL 6.0-8.3 770) ALBUMIN (BEAKER) (test code = 1145) 3.3 g/dL 3.5-5.0 L BILIRUBIN TOTAL (BEAKER) (test code 0.7 mg/dL 0.2-1.2 = 377) BILIRUBIN DIRECT (BEAKER) (test 0.5 mg/dL 0.1-0.5 code = 706) ALKALINE PHOSPHATASE (BEAKER) (test 68 U/L 40-150 code = 346) AST (SGOT) (BEAKER) (test code = 19 U/L 5-34 353) ALT (SGPT) (BEAKER) (test code = 9 U/L 6-55 347) [id number] 21:00:00 Test Item Value Reference Range Interpretation Comments PHOSPHORUS (BEAKER) (test code = 3.3 mg/dL 2.3-4.7 604) CBC W/PLT COUNT & AUTO [id number] 20:50:00 Test Item Value Reference Range Interpretation Comments WHITE BLOOD CELL COUNT (BEAKER) 5.3 K/ L 3.5-10.5 (test code = 775) RED BLOOD CELL COUNT (BEAKER) 3.43 M/ L 3.93-5.22 L (test code = 761) HEMOGLOBIN (BEAKER) (test code = 8.2 GM/DL 11.2-15.7 L 410) HEMATOCRIT (BEAKER) (test code = 27.1 % 34.1-44.9 L 411) MEAN CORPUSCULAR VOLUME (BEAKER) 79.0 fL 79.4-94.8 L (test code = 753) MEAN CORPUSCULAR HEMOGLOBIN 23.9 pg 25.6-32.2 L (BEAKER) (test code = 751) MEAN CORPUSCULAR HEMOGLOBIN CONC 30.3 GM/DL 32.2-35.5 L (BEAKER) (test code = 752) RED CELL DISTRIBUTION WIDTH 17.5 % 11.7-14.4 H (BEAKER) (test code = 412) PLATELET COUNT (BEAKER) (test 120 K/CU MM 150-450 L code = 756) MEAN PLATELET VOLUME (BEAKER) 10.5 fL 9.4-12.3 (test code = 754) NUCLEATED RED BLOOD CELLS 0 /100 WBC 0-0 (BEAKER) (test code = 413) NEUTROPHILS RELATIVE PERCENT 89 % (BEAKER) (test code = 429) LYMPHOCYTES RELATIVE PERCENT 4 % (BEAKER) (test code = 430) MONOCYTES RELATIVE PERCENT 6 % (BEAKER) (test code = 431) EOSINOPHILS RELATIVE PERCENT 0 % (BEAKER) (test code = 432) BASOPHILS RELATIVE PERCENT 0 % (BEAKER) (test code = 437) NEUTROPHILS ABSOLUTE COUNT 4.71 K/ L 1.56-6.13 (BEAKER) (test code = 670) LYMPHOCYTES ABSOLUTE COUNT 0.22 K/ L 1.18-3.74 L (BEAKER) (test code = 414) MONOCYTES ABSOLUTE COUNT (BEAKER) 0.32 K/ L 0.24-0.36 (test code = 415) EOSINOPHILS ABSOLUTE COUNT 0.02 K/ L 0.04-0.36 L (BEAKER) (test code = 416) BASOPHILS ABSOLUTE COUNT (BEAKER) 0.02 K/ L 0.01-0.08 (test code = 417) IMMATURE GRANULOCYTES-RELATIVE 0 % 0-1 PERCENT (BEAKER) (test code = 2801) HEPATIC FUNCTION [id number] 18:43:00 Test Item Value Reference Range Interpretation Comments TOTAL PROTEIN (BEAKER) (test code = 7.5 gm/dL 6.0-8.3 770) ALBUMIN (BEAKER) (test code = 1145) 3.5 g/dL 3.5-5.0 BILIRUBIN TOTAL (BEAKER) (test code 0.8 mg/dL 0.2-1.2 = 377) BILIRUBIN DIRECT (BEAKER) (test 0.5 mg/dL 0.1-0.5 code = 706) ALKALINE PHOSPHATASE (BEAKER) (test 72 U/L 40-150 code = 346) AST (SGOT) (BEAKER) (test code = 18 U/L 5-34 353) ALT (SGPT) (BEAKER) (test code = 8 U/L 6-55 347) [id number] 18:40:00 Test Item Value Reference Range Interpretation Comments PARTIAL THROMBOPLASTIN TIME 37.9 seconds 22.5-36.0 H (BEAKER) (test code = 760) PROTHROMBIN [id number] 18:39:00 Test Item Value Reference Range Interpretation Comments PROTIME (BEAKER) (test code = 17.0 seconds 11.7-14.7 H 759) INR (BEAKER) (test code = 370) 1.4 <=5.9 RECOMMENDED COUMADIN/WARFARIN INR THERAPY RANGESSTANDARD DOSE: 2.0 - 3.0 Includes: PROPHYLAXIS forvenous thrombosis, systemic embolization; TREATMENT for venous thrombosis and/or pulmonary embolus.HIGH RISK: Target INR is 2.5-3.5 for patients with mechanical heart valves.POCT-GLUCOSE [id number] 18:33:00 Test Item Value Reference Range Interpretation Comments POC-GLUCOSE METER 178 mg/dL 70-110 H TESTED AT [facility] 6720 (BEAKER) (test code = [place] 1538) [address] CBC W/PLT COUNT & AUTO [id number] 18:27:00 Test Item Value Reference Range Interpretation Comments WHITE BLOOD CELL COUNT (BEAKER) 3.9 K/ L 3.5-10.5 (test code = 775) RED BLOOD CELL COUNT (BEAKER) 3.74 M/ L 3.93-5.22 L (test code = 761) HEMOGLOBIN (BEAKER) (test code = 8.8 GM/DL 11.2-15.7 L 410) HEMATOCRIT (BEAKER) (test code = 30.0 % 34.1-44.9 L 411) MEAN CORPUSCULAR VOLUME (BEAKER) 80.2 fL 79.4-94.8 (test code = 753) MEAN CORPUSCULAR HEMOGLOBIN 23.5 pg 25.6-32.2 L (BEAKER) (test code = 751) MEAN CORPUSCULAR HEMOGLOBIN CONC 29.3 GM/DL 32.2-35.5 L (BEAKER) (test code = 752) RED CELL DISTRIBUTION WIDTH 17.6 % 11.7-14.4 H (BEAKER) (test code = 412) PLATELET COUNT (BEAKER) (test 132 K/CU MM 150-450 L code = 756) MEAN PLATELET VOLUME (BEAKER) 10.4 fL 9.4-12.3 (test code = 754) NUCLEATED RED BLOOD CELLS 0 /100 WBC 0-0 (BEAKER) (test code = 413) NEUTROPHILS RELATIVE PERCENT 79 % (BEAKER) (test code = 429) LYMPHOCYTES RELATIVE PERCENT 11 % (BEAKER) (test code = 430) MONOCYTES RELATIVE PERCENT 8 % (BEAKER) (test code = 431) EOSINOPHILS RELATIVE PERCENT 2 % (BEAKER) (test code = 432) BASOPHILS RELATIVE PERCENT 1 % (BEAKER) (test code = 437) NEUTROPHILS ABSOLUTE COUNT 3.07 K/ L 1.56-6.13 (BEAKER) (test code = 670) LYMPHOCYTES ABSOLUTE COUNT 0.43 K/ L 1.18-3.74 L (BEAKER) (test code = 414) MONOCYTES ABSOLUTE COUNT (BEAKER) 0.29 K/ L 0.24-0.36 (test code = 415) EOSINOPHILS ABSOLUTE COUNT 0.06 K/ L 0.04-0.36 (BEAKER) (test code = 416) BASOPHILS ABSOLUTE COUNT (BEAKER) 0.02 K/ L 0.01-0.08 (test code = 417) IMMATURE GRANULOCYTES-RELATIVE 1 % 0-1 PERCENT (BEAKER) (test code = 2801) HEPATIC FUNCTION [id number] 13:07:00 Test Item Value Reference Range Interpretation Comments TOTAL PROTEIN (BEAKER) (test code = 7.4 gm/dL 6.0-8.3 770) ALBUMIN (BEAKER) (test code = 1145) 3.4 g/dL 3.5-5.0 L BILIRUBIN TOTAL (BEAKER) (test code 1.0 mg/dL 0.2-1.2 = 377) BILIRUBIN DIRECT (BEAKER) (test 0.5 mg/dL 0.1-0.5 code = 706) ALKALINE PHOSPHATASE (BEAKER) (test 71 U/L 40-150 code = 346) AST (SGOT) (BEAKER) (test code = 16 U/L 5-34 353) ALT (SGPT) (BEAKER) (test code = 8 U/L 6-55 347) BASIC METABOLIC [id number] 13:07:00 Test Item Value Reference Range Interpretation Comments SODIUM (BEAKER) 135 meq/L 136-145 L (test code = 381) POTASSIUM (BEAKER) 4.5 meq/L 3.5-5.1 (test code = 379) CHLORIDE (BEAKER) 104 meq/L 98-107 (test code = 382) CO2 (BEAKER) (test 25 meq/L 22-29 code = 355) BLOOD UREA NITROGEN 12 mg/dL 7-21 (BEAKER) (test code = 354) CREATININE (BEAKER) 0.84 mg/dL 0.57-1.25 (test code = 358) GLUCOSE RANDOM 128 mg/dL 70-105 H (BEAKER) (test code = 652) CALCIUM (BEAKER) 8.9 mg/dL 8.4-10.2 (test code = 697) EGFR (BEAKER) (test 67 mL/min/1.73 ESTIMA KIANNA GFR IS code = 1092) sq m NOT ACCURATE CREATININE CLEARANCE IN PREDICTING GLOMERULAR FILTRATION RATE . ESTIMATED GFR I S NOT APPLICABLE FOR DIALYSIS PATIEN TS. CBC W/PLT COUNT & AUTO [id number] 12:55:00 Test Item Value Reference Range Interpretation Comments WHITE BLOOD CELL COUNT (BEAKER) 3.4 K/ L 3.5-10.5 L (test code = 775) RED BLOOD CELL COUNT (BEAKER) 3.56 M/ L 3.93-5.22 L (test code = 761) HEMOGLOBIN (BEAKER) (test code = 8.6 GM/DL 11.2-15.7 L 410) HEMATOCRIT (BEAKER) (test code = 28.3 % 34.1-44.9 L 411) MEAN CORPUSCULAR VOLUME (BEAKER) 79.5 fL 79.4-94.8 (test code = 753) MEAN CORPUSCULAR HEMOGLOBIN 24.2 pg 25.6-32.2 L (BEAKER) (test code = 751) MEAN CORPUSCULAR HEMOGLOBIN CONC 30.4 GM/DL 32.2-35.5 L (BEAKER) (test code = 752) RED CELL DISTRIBUTION WIDTH 17.4 % 11.7-14.4 H (BEAKER) (test code = 412) PLATELET COUNT (BEAKER) (test 122 K/CU MM 150-450 L code = 756) MEAN PLATELET VOLUME (BEAKER) 9.8 fL 9.4-12.3 (test code = 754) NUCLEATED RED BLOOD CELLS 0 /100 WBC 0-0 (BEAKER) (test code = 413) NEUTROPHILS RELATIVE PERCENT 81 % (BEAKER) (test code = 429) LYMPHOCYTES RELATIVE PERCENT 9 % (BEAKER) (test code = 430) MONOCYTES RELATIVE PERCENT 7 % (BEAKER) (test code = 431) EOSINOPHILS RELATIVE PERCENT 2 % (BEAKER) (test code = 432) BASOPHILS RELATIVE PERCENT 1 % (BEAKER) (test code = 437) NEUTROPHILS ABSOLUTE COUNT 2.77 K/ L 1.56-6.13 (BEAKER) (test code = 670) LYMPHOCYTES ABSOLUTE COUNT 0.29 K/ L 1.18-3.74 L (BEAKER) (test code = 414) MONOCYTES ABSOLUTE COUNT (BEAKER) 0.23 K/ L 0.24-0.36 L (test code = 415) EOSINOPHILS ABSOLUTE COUNT 0.07 K/ L 0.04-0.36 (BEAKER) (test code = 416) BASOPHILS ABSOLUTE COUNT (BEAKER) 0.02 K/ L 0.01-0.08 (test code = 417) IMMATURE GRANULOCYTES-RELATIVE 1 % 0-1 PERCENT (BEAKER) (test code = 2801) PROTHROMBIN [id number] 12:54:00 Test Item Value Reference Range Interpretation Comments PROTIME (BEAKER) (test code = 17.4 seconds 11.7-14.7 H 759) INR (BEAKER) (test code = 370) 1.4 <=5.9 RECOMMENDED COUMADIN/WARFARIN INR THERAPY RANGESSTANDARD DOSE: 2.0 - 3.0 Includes: PROPHYLAXIS forvenous thrombosis, systemic embolization; TREATMENT for venous thrombosis and/or pulmonary embolus.HIGH RISK: Target INR is 2.5-3.5 for patients with mechanical heart valves.POCT-GLUCOSE [id number] 12:34:00 Test Item Value Reference Range Interpretation Comments POC-GLUCOSE METER 181 mg/dL 70-110 H TESTED AT [facility] (BEAKER) (test code = [place] 1538) [address] CT, CHEST, WITH HIGH RESOLUTION, INTERSTITAL LUNG [id number] 11:08:00 Referring: Dr. Mohsen Padron for exam:->assess noduleFINAL REPORT INDICATION: Questionable right upper lobe nodule on recent x-ray. COMPARISON:Chest radiograph February 16, 2019Chest radiograph September 26, 2017Chest CT August 30, 2017 TECHNIQUE: Chest CT exam with high resolution cuts and interstitial lung disease protocol. Supine inspiration and supine expiration images acquired. Intravenous contrast not used. The exam was performe d according to our department dose-optimization protocol, which includes automated exposure control,adjustments of mA and kV according to patient size. Iterative reconstructions are also sometimes employed. FINDINGS:Biapical pleural-parenchymal irregularity is unchanged since August 2017 and likely age- related. No suspicious pulmonary nodule or mass is demonstrated. No evidence of interstitial lungdisease. No air trapping comparing expiration imaging to inspiration imaging. There is a large rightpleural effusion with complete right lower lobe collapse. Right pleural effusion is similar in size to that demonstrated in August 2017. Central airways are clear. No supraclavicular, axillary, mediastinal, or hilar lymphadenopathy is demonstrated. Left atrium is mildly enlarged measuring 4.3 cm AP dimension. There is atherosclerosis of the thoracic aorta without aneurysm. Main pulmonary artery normal in caliber. Thyroid gland and esophagus unremarkable. Upper abdomen notable for cirrhosis, ascites, and 1.8 cm cyst of the right hepatic lobe, better demonstrated on prior MR October 10, 2018. 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 Left hemidiaphragm mildly elevated. No suspicious osseous lesion demonstrated. IMPRESSION: No suspicious pulmonary nodule or mass. No evidence of interstitial lung disease. Large right pleural effusion. Signed: Cookie Zurita [facility] Verified Date/Time: 02/17/2019 11:08:22 Reading Location: [facility] C013Y CT Body Reading Room BODY FLUID CULTURE + GRAM STAIN 2019-02-17 09:30:00 Test Item Value Reference Range Interpretation Comments CULTURE ([facility]) (test code No growth = 1095) GRAM STAIN RESULT ([facility]) 1+ WBCs (test code = 1123) GRAM STAIN RESULT ([facility]) No organisms seen (test code = 80599) POCT-GLUCOSE [id number] 09:10:00 Test Item Value Reference Range Interpretation Comments POC-GLUCOSE METER 150 mg/dL 70-110 H TESTED AT [facility] ([facility]) (test code = [place] 1538) [address] POCT-GLUCOSE [id number] 21:56:00 Test Item Value Reference Range Interpretation Comments POC-GLUCOSE METER 165 mg/dL 70-110 H TESTED AT [facility] ([facility]) (test code = [place] 1538) [address] POCT-GLUCOSE [id number] 17:59:00 Test Item Value Reference Range Interpretation Comments POC-GLUCOSE METER 124 mg/dL 70-110 H TESTED AT [facility] ([facility]) (test code = [place] 1538) [address] POCT-GLUCOSE [id number] 12:30:00 Test Item Value Reference Range Interpretation Comments POC-GLUCOSE METER 140 mg/dL 70-110 H TESTED AT [facility] ([facility]) (test code = [facility] P[facility] 1538) [address] RAD, CHEST, 1 VIEW, NON [id number] 11:50:00Referring: Dr. Mohsen Padron for exam:->pre op umbilical hernia repairFINAL REPORT TECHNIQUE: Frontal view of the chest. INDICATION: pre op umbilica l hernia repair. COMPARISON: Radiographs from 11/28/2018. FINDINGS: LINES/TUBES: None. LUNGS: Mild hazy opacity in the right lung base. There is a questionable right upper lobe nodule which measures 4mm. PLEURA: Unchanged moderate size right pleural effusion. HEART AND MEDIASTINUM: The cardiomediastinal silhouette is within normal limits. Calcification of the aortic arch SOFT TISSUES AND BONES: Unremarkable. IMPRESSION: A moderate-sized right pleural effusion and atelectasis are unchanged. A questionable right upper lobe nodule measures 4 mm. Given the findings and recommendation on the prior chest CT, a chest CT should be considered for further evaluation on a nonemergent basis. Signed: Jeb Lopez MDReport Verified Date/Time: 02/16/2019 11:50:43 Reading Location: [facility] C013Y CT Body ReadingRoom COMPREHENSIVE METABOLIC [id number] 09:21:00 Test Item Value Reference Range Interpretation Comments TOTAL PROTEIN 6.9 gm/dL 6.0-8.3 ([facility]) (test code = 770) ALBUMIN (AKER) 3.3 g/dL 3.5-5.0 L (test code = 1145) ALKALINE PHOSPHATASE 68 U/L 40-150 (BEAKER) (test code = 346) BILIRUBIN TOTAL 0.9 mg/dL 0.2-1.2 (BEAKER) (test code = 377) SODIUM (BEAKER) (test 136 meq/L 136-145 code = 381) POTASSIUM (BEAKER) 4.3 meq/L 3.5-5.1 (test code = 379) CHLORIDE (BEAKER) 105 meq/L 98-107 (test code = 382) CO2 (BEAKER) (test 23 meq/L 22-29 code = 355) BLOOD UREA NITROGEN 9 mg/dL 7-21 (BEAKER) (test code = 354) CREATININE (BEAKER) 0.83 mg/dL 0.57-1.25 (test code = 358) GLUCOSE RANDOM 113 mg/dL 70-105 H (BEAKER) (test code = 652) CALCIUM (BEAKER) 9.0 mg/dL 8.4-10.2 (test code = 697) AST (SGOT) (BEAKER) 18 U/L 5-34 (test code = 353) ALT (SGPT) (BEAKER) 7 U/L 6-55 (test code = 347) EGFR (BEAKER) (test 68 mL/min/1.73 ESTIMA KIANNA GFR IS code = 1092) sq m NOT ACCURATE CREATININE CLEARANCE IN PREDICTING GLOMERULAR FILTRATION RATE . ESTIMATED GFR I S NOT APPLICABLE FOR DIALYSIS PATIEN TS. POCT-GLUCOSE [id number] 08:26:00 Test Item Value Reference Range Interpretation Comments POC-GLUCOSE METER 140 mg/dL 70-110 H TESTED AT [facility] ([facility]) (test code = [place] 1538) [address] PROTHROMBIN [id number] 07:11:00 Test Item Value Reference Range Interpretation Comments PROTIME (BEAKER) (test code = 17.7 seconds 11.7-14.7 H 759) INR (BEAKER) (test code = 370) 1.5 <=5.9 RECOMMENDED COUMADIN/WARFARIN INR THERAPY RANGESSTANDARD DOSE: 2.0 - 3.0 Includes: PROPHYLAXIS forvenous thrombosis, systemic embolization; TREATMENT for venous thrombosis and/or pulmonary embolus.HIGH RISK: Target INR is 2.5-3.5 for patients with mechanical heart valves.CBC W/PLT COUNT & AUTO DIFFERENTIAL 2019-02-16 06:42:00 Test Item Value Reference Range Interpretation Comments WHITE BLOOD CELL COUNT (BEAKER) 3.2 K/ L 3.5-10.5 L (test code = 775) RED BLOOD CELL COUNT (BEAKER) 3.38 M/ L 3.93-5.22 L (test code = 761) HEMOGLOBIN (BEAKER) (test code = 8.0 GM/DL 11.2-15.7 L 410) HEMATOCRIT (BEAKER) (test code = 26.8 % 34.1-44.9 L 411) MEAN CORPUSCULAR VOLUME (BEAKER) 79.3 fL 79.4-94.8 L (test code = 753) MEAN CORPUSCULAR HEMOGLOBIN 23.7 pg 25.6-32.2 L (BEAKER) (test code = 751) MEAN CORPUSCULAR HEMOGLOBIN CONC 29.9 GM/DL 32.2-35.5 L (BEAKER) (test code = 752) RED CELL DISTRIBUTION WIDTH 17.1 % 11.7-14.4 H (BEAKER) (test code = 412) PLATELET COUNT (BEAKER) (test 121 K/CU MM 150-450 L code = 756) MEAN PLATELET VOLUME (BEAKER) 10.2 fL 9.4-12.3 (test code = 754) NUCLEATED RED BLOOD CELLS 0 /100 WBC 0-0 (BEAKER) (test code = 413) NEUTROPHILS RELATIVE PERCENT 76 % (BEAKER) (test code = 429) LYMPHOCYTES RELATIVE PERCENT 12 % (BEAKER) (test code = 430) MONOCYTES RELATIVE PERCENT 8 % (BEAKER) (test code = 431) EOSINOPHILS RELATIVE PERCENT 3 % (BEAKER) (test code = 432) BASOPHILS RELATIVE PERCENT 1 % (BEAKER) (test code = 437) NEUTROPHILS ABSOLUTE COUNT 2.42 K/ L 1.56-6.13 (BEAKER) (test code = 670) LYMPHOCYTES ABSOLUTE COUNT 0.39 K/ L 1.18-3.74 L (BEAKER) (test code = 414) MONOCYTES ABSOLUTE COUNT (BEAKER) 0.24 K/ L 0.24-0.36 (test code = 415) EOSINOPHILS ABSOLUTE COUNT 0.09 K/ L 0.04-0.36 (BEAKER) (test code = 416) BASOPHILS ABSOLUTE COUNT (BEAKER) 0.02 K/ L 0.01-0.08 (test code = 417) IMMATURE GRANULOCYTES-RELATIVE 0 % 0-1 PERCENT (BEAKER) (test code = 2801) POCT-GLUCOSE [id number] 21:10:00 Test Item Value Reference Range Interpretation Comments POC-GLUCOSE METER 172 mg/dL 70-110 H TESTED AT [facility] ([facility]) (test code = [place] 1538) [address] POCT-GLUCOSE [id number] 12:41:00 Test Item Value Reference Range Interpretation Comments POC-GLUCOSE METER 229 mg/dL 70-110 H TESTED AT [place] [address] ([facility]) (test code = [facility] [place] 1538) [address] POCT-GLUCOSE [id number] 09:17:00 Test Item Value Reference Range Interpretation Comments POC-GLUCOSE METER 162 mg/dL 70-110 H TESTED AT [place] [address] ([facility]) (test code = [facility] [place] [facility] 1538) [address] CBC W/PLT COUNT & AUTO [id number] 07:41:00 Test Item Value Reference Range Interpretation Comments WHITE BLOOD CELL COUNT (BEAKER) 2.6 K/ L 3.5-10.5 L (test code = 775) RED BLOOD CELL COUNT (BEAKER) 3.21 M/ L 3.93-5.22 L (test code = 761) HEMOGLOBIN (BEAKER) (test code = 7.9 GM/DL 11.2-15.7 L 410) HEMATOCRIT (BEAKER) (test code = 25.1 % 34.1-44.9 L 411) MEAN CORPUSCULAR VOLUME (BEAKER) 78.2 fL 79.4-94.8 L (test code = 753) MEAN CORPUSCULAR HEMOGLOBIN 24.6 pg 25.6-32.2 L (BEAKER) (test code = 751) MEAN CORPUSCULAR HEMOGLOBIN CONC 31.5 GM/DL 32.2-35.5 L (BEAKER) (test code = 752) RED CELL DISTRIBUTION WIDTH 17.1 % 11.7-14.4 H (BEAKER) (test code = 412) PLATELET COUNT (BEAKER) (test 125 K/CU MM 150-450 L code = 756) MEAN PLATELET VOLUME (BEAKER) 10.8 fL 9.4-12.3 (test code = 754) NUCLEATED RED BLOOD CELLS 0 /100 WBC 0-0 (BEAKER) (test code = 413) NEUTROPHILS RELATIVE PERCENT 77 % (BEAKER) (test code = 429) LYMPHOCYTES RELATIVE PERCENT 11 % (BEAKER) (test code = 430) MONOCYTES RELATIVE PERCENT 9 % (BEAKER) (test code = 431) EOSINOPHILS RELATIVE PERCENT 3 % (BEAKER) (test code = 432) BASOPHILS RELATIVE PERCENT 0 % (BEAKER) (test code = 437) NEUTROPHILS ABSOLUTE COUNT 1.99 K/ L 1.56-6.13 (BEAKER) (test code = 670) LYMPHOCYTES ABSOLUTE COUNT 0.28 K/ L 1.18-3.74 L (BEAKER) (test code = 414) MONOCYTES ABSOLUTE COUNT (BEAKER) 0.24 K/ L 0.24-0.36 (test code = 415) EOSINOPHILS ABSOLUTE COUNT 0.07 K/ L 0.04-0.36 (BEAKER) (test code = 416) BASOPHILS ABSOLUTE COUNT (BEAKER) 0.01 K/ L 0.01-0.08 (test code = 417) IMMATURE GRANULOCYTES-RELATIVE 0 % 0-1 PERCENT (BEAKER) (test code = 2801) URINALYSIS WITH MICROSCOPIC IF [id number] 03:00:00 Test Item Value Reference Range Interpretation Comments COLOR (BEAKER) (test code = 470) Light Yellow CLARITY (BEAKER) (test code = Clear 469) SPECIFIC GRAVITY UA (BEAKER) 1.002 1.001-1.035 (test code = 468) PH UA (BEAKER) (test code = 467) 6.5 5.0-8.0 PROTEIN UA (BEAKER) (test code = Negative Negative 464) GLUCOSE UA (BEAKER) (test code = Negative Negative 365) KETONES UA (BEAKER) (test code = Negative Negative 371) BILIRUBIN UA (BEAKER) (test code Negative Negative = 462) BLOOD UA (BEAKER) (test code = Negative Negative 461) NITRITE UA (BEAKER) (test code = Negative Negative 465) LEUKOCYTE ESTERASE UA (BEAKER) Negative Negative (test code = 466) UROBILINOGEN UA (BEAKER) (test 0.2 mg/dL 0.2-1.0 code = 463) SOURCE(BEAKER) (test code = 5129) POCT-GLUCOSE [id number] 21:06:00 Test Item Value Reference Range Interpretation Comments POC-GLUCOSE METER 194 mg/dL 70-110 H TESTED AT [facility] (BEAKER) (test code = [place] 1538) [address] POCT-GLUCOSE [id number] 17:58:00 Test Item Value Reference Range Interpretation Comments POC-GLUCOSE METER 164 mg/dL 70-110 H TESTED AT [facility] (BEAKER) (test code = [place] [place] [facility] 1538) [address] BODY FLUID CELL COUNT WITH [id number] 14:39:00 Test Item Value Reference Range Interpretation Comments APPEARANCE FLUID (BEAKER) (test Clear Clear code = 510) COLOR FLUID (BEAKER) (test code = Yellow Colorless, Straw A 511) RBC FLUID (BEAKER) (test code = 41 /cu mm <=1 H 513) ADJUSTED WBC FLUID (BEAKER) (test 184 /cu mm <=5 H code = 1691) LINING CELLS (BEAKER) (test code 15 /cu mm <=1 H = 1590) NEUTROPHILS FLUID (BEAKER) (test 29 % code = 1656) LYMPHS FLUID (BEAKER) (test code 53 % = 488) MONO/MACROPHAGE FLUID (BEAKER) 18 % (test code = 489) EOSINOPHILS FLUID (BEAKER) (test 0 % code = 491) BASO FLUID (BEAKER) (test code = 0 % 492) CONTAINER BODY FLUID (BEAKER) EDTA Tube (test code = 2873) U/S, [id number] 10:10:00Referring: Dr. Mohsen Padron for exam:->ascitesFINAL REPORT PROCEDURE: Ultrasound- guided paracentesis. INDICATION: Ascites. DESCRIPTION: This examination was performed by Cindy Payton under the direct supervision of Jeb Lopez. After obtaining informed written consent, ultrasound scan of the abdomen identified ascites in the right lower quadrant. The overlying skin was prepped and draped in the usual, sterile fashion and local 1% lidocaine anesthesia was administered. A 5 Indonesian catheter was advanced into the peritoneal cavity and 1100 mL of clear yellow fluid was removed. The catheter was removed without immediate complication. Samples were sent for analysis. IMPRESSION: Uncomplicated ultrasound-guided paracentesis with 1100 mL fluid removed. Signed: Jeb Lopez MDReport Verified Date/Time: 02/14/2019 10:10:02 Reading Location: [place] [id number] Ultrasound Reading Room POCT-GLUCOSE [id number] 08:18:00 Test Item Value Reference Range Interpretation Comments POC-GLUCOSE METER 154 mg/dL 70-110 H TESTED AT [facility] (BEAKER) (test code = [place] 1538) [address] HEPATIC FUNCTION [id number] 07:08:00 Test Item Value Reference Range Interpretation Comments TOTAL PROTEIN (BEAKER) (test code = 6.2 gm/dL 6.0-8.3 770) ALBUMIN (BEAKER) (test code = 1145) 2.7 g/dL 3.5-5.0 L BILIRUBIN TOTAL (BEAKER) (test code 0.5 mg/dL 0.2-1.2 = 377) BILIRUBIN DIRECT (BEAKER) (test 0.4 mg/dL 0.1-0.5 code = 706) ALKALINE PHOSPHATASE (BEAKER) (test 78 U/L 40-150 code = 346) AST (SGOT) (BEAKER) (test code = 17 U/L 5-34 353) ALT (SGPT) (BEAKER) (test code = 6 U/L 6-55 347) BASIC METABOLIC [id number] 07:08:00 Test Item Value Reference Range Interpretation Comments SODIUM (BEAKER) 134 meq/L 136-145 L (test code = 381) POTASSIUM (BEAKER) 4.4 meq/L 3.5-5.1 (test code = 379) CHLORIDE (BEAKER) 104 meq/L 98-107 (test code = 382) CO2 (BEAKER) (test 25 meq/L 22-29 code = 355) BLOOD UREA NITROGEN 10 mg/dL 7-21 (BEAKER) (test code = 354) CREATININE (BEAKER) 0.81 mg/dL 0.57-1.25 (test code = 358) GLUCOSE RANDOM 130 mg/dL 70-105 H (BEAKER) (test code = 652) CALCIUM (BEAKER) 8.3 mg/dL 8.4-10.2 L (test code = 697) EGFR (BEAKER) (test 70 mL/min/1.73 ESTIMA KIANNA GFR IS code = 1092) sq m NOT ACCURATE CREATININE CLEARANCE IN PREDICTING GLOMERULAR FILTRATION RATE . ESTIMATED GFR I S NOT APPLICABLE FOR DIALYSIS PATIEN TS. PROTHROMBIN [id number] 06:49:00 Test Item Value Reference Range Interpretation Comments PROTIME (BEAKER) (test code = 17.5 seconds 11.7-14.7 H 759) INR (BEAKER) (test code = 370) 1.4 <=5.9 RECOMMENDED COUMADIN/WARFARIN INR THERAPY RANGESSTANDARD DOSE: 2.0 - 3.0 Includes: PROPHYLAXIS forvenous thrombosis, systemic embolization; TREATMENT for venous thrombosis and/or pulmonary embolus.HIGH RISK: Target INR is 2.5-3.5 for patients with mechanical heart valves.CBC W/PLT COUNT & AUTO DIFFERENTIAL 2019-02-14 06:37:00 Test Item Value Reference Range Interpretation Comments WHITE BLOOD CELL COUNT (BEAKER) 3.1 K/ L 3.5-10.5 L (test code = 775) RED BLOOD CELL COUNT (BEAKER) 2.83 M/ L 3.93-5.22 L (test code = 761) HEMOGLOBIN (BEAKER) (test code = 6.4 GM/DL 11.2-15.7 L 410) HEMATOCRIT (BEAKER) (test code = 21.6 % 34.1-44.9 L 411) MEAN CORPUSCULAR VOLUME (BEAKER) 76.3 fL 79.4-94.8 L (test code = 753) MEAN CORPUSCULAR HEMOGLOBIN 22.6 pg 25.6-32.2 L (BEAKER) (test code = 751) MEAN CORPUSCULAR HEMOGLOBIN CONC 29.6 GM/DL 32.2-35.5 L (BEAKER) (test code = 752) RED CELL DISTRIBUTION WIDTH 16.0 % 11.7-14.4 H (BEAKER) (test code = 412) PLATELET COUNT (BEAKER) (test 115 K/CU MM 150-450 L code = 756) MEAN PLATELET VOLUME (BEAKER) 11.0 fL 9.4-12.3 (test code = 754) NUCLEATED RED BLOOD CELLS 0 /100 WBC 0-0 (BEAKER) (test code = 413) NEUTROPHILS RELATIVE PERCENT 72 % (BEAKER) (test code = 429) LYMPHOCYTES RELATIVE PERCENT 13 % (BEAKER) (test code = 430) MONOCYTES RELATIVE PERCENT 9 % (BEAKER) (test code = 431) EOSINOPHILS RELATIVE PERCENT 5 % (BEAKER) (test code = 432) BASOPHILS RELATIVE PERCENT 1 % (BEAKER) (test code = 437) NEUTROPHILS ABSOLUTE COUNT 2.24 K/ L 1.56-6.13 (BEAKER) (test code = 670) LYMPHOCYTES ABSOLUTE COUNT 0.42 K/ L 1.18-3.74 L (BEAKER) (test code = 414) MONOCYTES ABSOLUTE COUNT (BEAKER) 0.27 K/ L 0.24-0.36 (test code = 415) EOSINOPHILS ABSOLUTE COUNT 0.16 K/ L 0.04-0.36 (BEAKER) (test code = 416) BASOPHILS ABSOLUTE COUNT (BEAKER) 0.02 K/ L 0.01-0.08 (test code = 417) IMMATURE GRANULOCYTES-RELATIVE 1 % 0-1 PERCENT (BEAKER) (test code = 2801) POCT-GLUCOSE [id number] 22:22:00 Test Item Value Reference Range Interpretation Comments POC-GLUCOSE METER 243 mg/dL 70-110 H TESTED AT [facility] (BEAKER) (test code = [place] 1538) [address] [id number] 15:01:00 Test Item Value Reference Range Interpretation Comments MAGNESIUM (BEAKER) (test code = 2.0 mg/dL 1.6-2.6 627) COMPREHENSIVE METABOLIC [id number] 15:01:00 Test Item Value Reference Range Interpretation Comments TOTAL PROTEIN 6.9 gm/dL 6.0-8.3 (BEAKER) (test code = 770) ALBUMIN (BEAKER) 2.9 g/dL 3.5-5.0 L (test code = 1145) ALKALINE PHOSPHATASE 85 U/L 40-150 (BEAKER) (test code = 346) BILIRUBIN TOTAL 0.8 mg/dL 0.2-1.2 (BEAKER) (test code = 377) SODIUM (BEAKER) (test 134 meq/L 136-145 L code = 381) POTASSIUM (BEAKER) 4.5 meq/L 3.5-5.1 (test code = 379) CHLORIDE (BEAKER) 104 meq/L 98-107 (test code = 382) CO2 (BEAKER) (test 25 meq/L 22-29 code = 355) BLOOD UREA NITROGEN 10 mg/dL 7-21 (BEAKER) (test code = 354) CREATININE (BEAKER) 0.84 mg/dL 0.57-1.25 (test code = 358) GLUCOSE RANDOM 196 mg/dL 70-105 H (BEAKER) (test code = 652) CALCIUM (BEAKER) 8.4 mg/dL 8.4-10.2 (test code = 697) AST (SGOT) (BEAKER) 15 U/L 5-34 (test code = 353) ALT (SGPT) (BEAKER) 9 U/L 6-55 (test code = 347) EGFR (BEAKER) (test 67 mL/min/1.73 ESTIMA KIANNA GFR IS code = 1092) sq m NOT ACCURATE CREATININE CLEARANCE IN PREDICTING GLOMERULAR FILTRATION RATE . ESTIMATED GFR I S NOT APPLICABLE FOR DIALYSIS PATIEN TS. [id number] 15:01:00 Test Item Value Reference Range Interpretation Comments LIPASE (BEAKER) (test code = 749) 31 U/L 8-78 [id number] 14:52:00 Test Item Value Reference Range Interpretation Comments PROTIME (BEAKER) (test code = 16.8 seconds 11.7-14.7 H 759) INR (BEAKER) (test code = 370) 1.4 <=5.9 PARTIAL THROMBOPLASTIN TIME 39.8 seconds 22.5-36.0 H (BEAKER) (test code = 760) RECOMMENDED COUMADIN/WARFARIN INR THERAPY RANGESSTANDARD DOSE: 2.0 - 3.0 Includes: PROPHYLAXIS forvenous thrombosis, systemic embolization; TREATMENT for venous thrombosis and/or pulmonary embolus.HIGH RISK: Target INR is 2.5-3.5 for patients with mechanical heart valves.CBC W/PLT COUNT & AUTO DIFFERENTIAL 2019-02-13 14:46:00 Test Item Value Reference Range Interpretation Comments WHITE BLOOD CELL COUNT (BEAKER) 3.6 K/ L 3.5-10.5 (test code = 775) RED BLOOD CELL COUNT (BEAKER) 3.17 M/ L 3.93-5.22 L (test code = 761) HEMOGLOBIN (BEAKER) (test code = 7.2 GM/DL 11.2-15.7 L 410) HEMATOCRIT (BEAKER) (test code = 24.3 % 34.1-44.9 L 411) MEAN CORPUSCULAR VOLUME (BEAKER) 76.7 fL 79.4-94.8 L (test code = 753) MEAN CORPUSCULAR HEMOGLOBIN 22.7 pg 25.6-32.2 L (BEAKER) (test code = 751) MEAN CORPUSCULAR HEMOGLOBIN CONC 29.6 GM/DL 32.2-35.5 L (BEAKER) (test code = 752) RED CELL DISTRIBUTION WIDTH 15.9 % 11.7-14.4 H (BEAKER) (test code = 412) PLATELET COUNT (BEAKER) (test 125 K/CU MM 150-450 L code = 756) MEAN PLATELET VOLUME (BEAKER) 11.2 fL 9.4-12.3 (test code = 754) NUCLEATED RED BLOOD CELLS 0 /100 WBC 0-0 (BEAKER) (test code = 413) NEUTROPHILS RELATIVE PERCENT 77 % (BEAKER) (test code = 429) LYMPHOCYTES RELATIVE PERCENT 11 % (BEAKER) (test code = 430) MONOCYTES RELATIVE PERCENT 10 % (BEAKER) (test code = 431) EOSINOPHILS RELATIVE PERCENT 2 % (BEAKER) (test code = 432) BASOPHILS RELATIVE PERCENT 0 % (BEAKER) (test code = 437) NEUTROPHILS ABSOLUTE COUNT 2.79 K/ L 1.56-6.13 (BEAKER) (test code = 670) LYMPHOCYTES ABSOLUTE COUNT 0.38 K/ L 1.18-3.74 L (BEAKER) (test code = 414) MONOCYTES ABSOLUTE COUNT (BEAKER) 0.36 K/ L 0.24-0.36 (test code = 415) EOSINOPHILS ABSOLUTE COUNT 0.08 K/ L 0.04-0.36 (BEAKER) (test code = 416) BASOPHILS ABSOLUTE COUNT (BEAKER) 0.01 K/ L 0.01-0.08 (test code = 417) IMMATURE GRANULOCYTES-RELATIVE 0 % 0-1 PERCENT (BEAKER) (test code = 2801) CBC (HEMOGRAM ONLY)2018-12-17 14:15:00 Test Item Value Reference Range Interpretation Comments WHITE BLOOD CELL COUNT (BEAKER) 2.9 K/ L 3.5-10.5 L (test code = 775) RED BLOOD CELL COUNT (BEAKER) 3.03 M/ L 3.93-5.22 L (test code = 761) HEMOGLOBIN (BEAKER) (test code = 7.5 GM/DL 11.2-15.7 L 410) HEMATOCRIT (BEAKER) (test code = 24.2 % 34.1-44.9 L 411) MEAN CORPUSCULAR VOLUME (BEAKER) 79.9 fL 79.4-94.8 (test code = 753) MEAN CORPUSCULAR HEMOGLOBIN 24.8 pg 25.6-32.2 L (BEAKER) (test code = 751) MEAN CORPUSCULAR HEMOGLOBIN CONC 31.0 GM/DL 32.2-35.5 L (BEAKER) (test code = 752) RED CELL DISTRIBUTION WIDTH 15.7 % 11.7-14.4 H (BEAKER) (test code = 412) PLATELET COUNT (BEAKER) (test code 65 K/CU MM 150-450 L = 756) MEAN PLATELET VOLUME (BEAKER) 11.0 fL 9.4-12.3 (test code = 754) NUCLEATED RED BLOOD CELLS (BEAKER) 0 /100 WBC 0-0 (test code = 413) COMPREHENSIVE METABOLIC [id number] 09:49:00 Test Item Value Reference Range Interpretation Comments TOTAL PROTEIN 7.2 gm/dL 6.0-8.3 (BEAKER) (test code = 770) ALBUMIN (BEAKER) 3.3 g/dL 3.5-5.0 L (test code = 1145) ALKALINE PHOSPHATASE 91 U/L 40-150 (BEAKER) (test code = 346) BILIRUBIN TOTAL 1.0 mg/dL 0.2-1.2 (BEAKER) (test code = 377) SODIUM (BEAKER) (test 138 meq/L 136-145 code = 381) POTASSIUM (BEAKER) 3.8 meq/L 3.5-5.1 (test code = 379) CHLORIDE (BEAKER) 105 meq/L 98-107 (test code = 382) CO2 (BEAKER) (test 27 meq/L 22-29 code = 355) BLOOD UREA NITROGEN 12 mg/dL 7-21 (BEAKER) (test code = 354) CREATININE (BEAKER) 0.81 mg/dL 0.57-1.25 (test code = 358) GLUCOSE RANDOM 63 mg/dL 70-105 L (BEAKER) (test code = 652) CALCIUM (BEAKER) 8.7 mg/dL 8.4-10.2 (test code = 697) AST (SGOT) (BEAKER) 24 U/L 5-34 (test code = 353) ALT (SGPT) (BEAKER) 12 U/L 6-55 (test code = 347) EGFR (BEAKER) (test 70 mL/min/1.73 ESTIMA KIANNA GFR IS code = 1092) sq m NOT ACCURATE CREATININE CLEARANCE IN PREDICTING GLOMERULAR FILTRATION RATE . ESTIMATED GFR I S NOT APPLICABLE FOR DIALYSIS PATIEN TS. CBC (HEMOGRAM ONLY)2018-12-17 09:31:00 Test Item Value Reference Range Interpretation Comments WHITE BLOOD CELL COUNT (BEAKER) 3.8 K/ L 3.5-10.5 (test code = 775) RED BLOOD CELL COUNT (BEAKER) 3.46 M/ L 3.93-5.22 L (test code = 761) HEMOGLOBIN (BEAKER) (test code = 8.4 GM/DL 11.2-15.7 L 410) HEMATOCRIT (BEAKER) (test code = 27.8 % 34.1-44.9 L 411) MEAN CORPUSCULAR VOLUME (BEAKER) 80.3 fL 79.4-94.8 (test code = 753) MEAN CORPUSCULAR HEMOGLOBIN 24.3 pg 25.6-32.2 L (BEAKER) (test code = 751) MEAN CORPUSCULAR HEMOGLOBIN CONC 30.2 GM/DL 32.2-35.5 L (BEAKER) (test code = 752) RED CELL DISTRIBUTION WIDTH 15.8 % 11.7-14.4 H (BEAKER) (test code = 412) PLATELET COUNT (BEAKER) (test code 85 K/CU MM 150-450 L = 756) MEAN PLATELET VOLUME (BEAKER) 10.9 fL 9.4-12.3 (test code = 754) NUCLEATED RED BLOOD CELLS (BEAKER) 0 /100 WBC 0-0 (test code = 413) BODY FLUID CULTURE + GRAM [id number] 10:19:00 Test Item Value Reference Range Interpretation Comments CULTURE (BEAKER) (test code No growth = 1095) GRAM STAIN RESULT (BEAKER) <1+ WBCs (test code = 1123) GRAM STAIN RESULT (BEAKER) No organisms seen (test code = 50555) U/S, ABDOMINAL, [id number] 22:44:00Referring: Dr. Mohsen Padron for Exam:->pretranslant evaluation, [...] with sequela of portal hypertension including splenic me mynor and small volume intra-abdominal ascites. Bilateral pleural effusions. Increased renal parenchymal echogenicity is consistent with medical renal disease. Right hepatic lobe cystic structure measuring up to 1.7 cm better evaluated on recent MRI of the abdomen. Signed: Mell Miguelort Kate erified Date/Time: 11/28/2018 22:44:50 Reading Location: [address] Transitional Reading Room BODY FLUID CELL COUNT WITH [id number] 22:25:00 Test Item Value Reference Range Interpretation Comments APPEARANCE FLUID (BEAKER) (test Clear Clear code = 510) COLOR FLUID (BEAKER) (test code = Straw Colorless, Straw 511) RBC FLUID (BEAKER) (test code = 178 /cu mm <=1 H 513) ADJUSTED WBC FLUID (BEAKER) (test 121 /cu mm <=5 H code = 1691) LINING CELLS (BEAKER) (test code 0 /cu mm <=1 = 1590) NEUTROPHILS FLUID (BEAKER) (test 17 % code = 1656) LYMPHS FLUID (BEAKER) (test code 23 % = 488) MONO/MACROPHAGE FLUID (BEAKER) 60 % (test code = 489) EOSINOPHILS FLUID (BEAKER) (test 0 % code = 491) BASO FLUID (BEAKER) (test code = 0 % 492) CONTAINER BODY FLUID (BEAKER) EDTA Tube (test code = 2873) U/S, [id number] 20:53:00Referring: Dr. Mohsen Josephinister 200 mL of albumin 25% (50 grams) IV x1 after paracentesis if3 or more liters removed.Send ascitic fluid for cell count and differential.Reason for Exam:->pretranspalnt eval, ascitesFINAL REPORT PROCEDURE: Ultrasound-guided paracentesis. INDICATION: Ascites. DESCRIPTION: After obtaining informed written consent, ultrasound scan of the abdomen identified ascites in the right lower quadrant. The overlying skin was prepped and draped in the usual, sterile fashion and local 1% lidocaine anesthesia was administered. A 5 Indonesian catheter was advanced into the peritoneal cavity. The bowel was very active, and care was taken not to advance the needle when bowel was immediately adjacent to the needle. After the initial stick, approximately 300 mL of fluid was returned, but intermittently the bowel would obstruct the catheter. Therefore, this catheter was removed,and a second 5 Indonesian catheter was inserted. 1250 mL of clear yellow fluid was removed in total. Thecatheter was removed without immediate complication. Samples were sent for analysis. IMPRESSION:Uncomplicated ultrasound-guided paracentesis with 1250 mL of fluid removed. Signed: Jeb Lopezort Verified Date/Time: 11/28/2018 20:53:26 Reading Location: [facility] B1 P006J Ultrasound Reading Room RAD, CHEST, 2 VIEWS 2018-11-28 15:18:00Referring: Dr. Mohsen Padron for Exam:- >pretrasnplant liver evalFINAL REPORT TECHNIQUE: Frontal and lateral chest radiographs dated 11.28.2018. CLINICAL HISTORY: Pretransplant eval COMPARISON STUDY: Chest radiographs dated 10/10/2018 FINDINGS: There is a moderate right pleural effusion with associated atelectasis. Left lung is clear. No pneumothorax. Cardiomediastinal silhouette is normal in size. No pulmonary edema. Bones are osteopenic. IMPRESSION: Moderate right pleural effusion with associated atelectasis. Signed: Minna House MDReport Verified Date/Time: 11/28/2018 15:18:25 Reading Location: [facility] Radiology Reading Room [id number] 14:48:00 Test Item Value Reference Range Interpretation Comments PROTIME (BEAKER) (test code = 16.6 seconds 11.7-14.7 H 759) INR (BEAKER) (test code = 370) 1.3 <=5.9 PARTIAL THROMBOPLASTIN TIME 40.9 seconds 22.5-36.0 H (BEAKER) (test code = 760) RECOMMENDED COUMADIN/WARFARIN INR THERAPY RANGESSTANDARD DOSE: 2.0 - 3.0 Includes: PROPHYLAXIS forvenous thrombosis, systemic embolization; TREATMENT for venous thrombosis and/or pulmonary embolus.HIGH RISK: Target INR is 2.5-3.5 for patients with mechanical heart valves.PLATELET [id number] 14:39:00 Test Item Value Reference Range Interpretation Comments PLATELET COUNT (BEAKER) (test code 87 K/CU MM 150-450 L = 756) URINALYSIS W/ REFLEX URINE [id number] 13:37:00 Test Item Value Reference Range Interpretation Comments COLOR (BEAKER) (test code = 470) Yellow CLARITY (BEAKER) (test code = 469) Clear SPECIFIC GRAVITY UA (BEAKER) (test 1.010 1.001-1.035 code = 468) PH UA (BEAKER) (test code = 467) 7.0 5.0-8.0 PROTEIN UA (BEAKER) (test code = Negative Negative 464) GLUCOSE UA (BEAKER) (test code = Negative Negative 365) KETONES UA (BEAKER) (test code = Negative Negative 371) BILIRUBIN UA (BEAKER) (test code = Negative Negative 462) BLOOD UA (BEAKER) (test code = Negative Negative 461) NITRITE UA (BEAKER) (test code = Negative Negative 465) LEUKOCYTE ESTERASE UA (BEAKER) Negative Negative (test code = 466) UROBILINOGEN UA (BEAKER) (test 0.2 mg/dL 0.2-1.0 code = 463) RBC UA (BEAKER) (test code = 519) 1 /HPF WBC UA (BEAKER) (test code = 520) < /HPF MUCUS (BEAKER) (test code = 1574) Occasional SQUAMOUS EPITHELIAL (BEAKER) (test 1 /HPF code = 516) SOURCE(BEAKER) (test code = 2795) MR, ABDOMEN, [id number] 15:37:00Referring: [facility]. Connolly [facility] INDICATION:68-year-old female with cirrhosis. Evaluation before [...] main portal vein. Large periumbilical hernia. Signed: Cookie Zurita Verified Date/Time: 10/10/2018 15:37:48 Reading Location: [address] Ortho Consult Reading Room Electronically signed by: COOKIE ZURITA M.D. on 2017 03:37 PMRAD, BONE DENSITY [id number] 12:55:00Referring: Dr. Mohsen Padron for Exam:->Pretransplant Liver EvaluationFINAL REPORT RAD, BONE DENSITY STUDY CLINICAL HISTORY: Pretransplant Liver Ijeoma luation COMPARISON: None FINDINGS:Bone mineral density measurement:Lumbar spine: 0.895 gm/qw9Axhb femoral neck: 0.715 gm/cm2 Standard deviation from young adult population (T-score)Lumbar spine: -2.4Mean femoral neck: -2.3 Standard deviation for age adjusted population (Z score)Lumbar spine: -0.7Mean femoral neck: -0.6 WHO body mass index calculation = 26.5 kg/m2, qualifying for overweight classification IMPRESSION: WHO Classification of osteopenia for the lumbar spine. WHO Classification ofosteopenia for the mean femoral neck. WHO Diagnostic criteria for osteoporosisBMD: Bone mineral densityNormal : BMD measurement less than one standard deviation from young adult populationOsteopenia: BMD measurement between 1 and 2.5 standard deviationsOsteoporosis: BMD measurement greater than 2.5 standard deviations Signed: JR De Anda Robert MDReport Verified Date/Time: 10/10/2018 12:55:04Reading Location: [facility] Radiology Reading Room RAD, MANDIBLE, MIN 4 [id number] 12:49:00Referring: Dr. Mohsen Padron for Exam:- >Pretransplant Liver EvaluationFINAL REPORT MANDIBLE History provided: Pretransplant evaluation The patient is partially edentulous. No bony destructive change is seen to specifically indicate abscess. The marilyn ining teeth show no lucency about the roots. Signed: Brent Benson Verified Date/Time: 10/10/2018 12:49:12 Reading Location: [address] Radiology Reading Room RAD, CHEST, 2 [id number] 12:47:00Referring: Dr. Mohsen Padron for Exam:->Pretransplant Liver EvaluationFINAL REPORT CHEST PA AND LATERAL Comparison exam: 09/26/2017 History provided : Pretransplant evaluation Heart size is normal. Right hemidiaphragm is obscured by moderate-sized pleural effusion. Atelectatic change is likely within the right lower lobe. Left lung clear. Normal vascularity. IMPRESSION: Moderately large right pleural effusion. Signed: Brent Benson MDReport Verified Date/Time: 10/10/2018 12:47:57 Reading Location: [address] Radiology Reading Room ANTI-NUCLEAR ANTIBODY (PRABHJOT)2018-10-04 13:16:00 Test Item Value Reference Range Interpretation Comments ANTI-NUCLEAR ANTIBODY (PRABHJOT) (BEAKER) Positive Negative A (test code = 418) Test performed by IFA method.PRABHJOT TITER AND [id number] 13:16:00 Test Item Value Reference Range Interpretation Comments PRABHJOT TITER (BEAKER) (test code = :160 1541) PRABHJOT PATTERN (BEAKER) (test code = Centromere 1781) [id number] 10:39:00 Test Item Value Reference Range Interpretation Comments RPR SCREEN (BEAKER) (test code = Nonreactive Nonreactive 420) CYTOMEGALOVIRUS ANTIBODY, [id number] 10:15:00 Test Item Value Reference Range Interpretation Comments CYTOMEGALOVIRUS, IGG (BEAKER) Positive Negative, Equivocal A (test code = 3429) CMV IgG Result Interpretation: </= 0.8 Al Negative 0.9-1.0 Al Equivocal >/=1.1 Al PositiveCYTOMEGALOVIRUS ANTIBODY, [id number] 10:15:00 Test Item Value Reference Range Interpretation Comments CYTOMEGALOVIRUS IGM ANTIBODY Negative Negative, Equivocal (BEAKER) (test code = 3437) CMV IgM Result Interpretation: </= 0.8 Al Negative 0.9-1.0 Al Equivocal >/= 1.1 Al PositiveEBV ANTIBODY, [id number] 10:15:00 Test Item Value Reference Range Interpretation Comments RUPINDER FERNANDEZ VIRAL CAPSID Positive Negative, Equivocal A ANTIGEN IGG (BEAKER) (test code = 3415) Rupinder Fernandez Viral Capsid Antigen IgG Result Interpretation: </= 0.8 Al Negative 0.9-1.0 Al Equivocal >/= 1.1 Al PositiveEBV ANTIBODY, IGM 2018-10-04 10:15:00 Test Item Value Reference Range Interpretation Comments RUPINDER FERNANDEZ VIRAL CAPSID Negative Negative, Equivocal ANTIGEN IGM (BEAKER) (test code = 3418) Rupinder Fernandez Viral Capsid Antigen IgM Result Interpretation: </= 0.8 Al Negative 0.9-1.0 Al Equivocal >/= 1.1 Al PositiveHEMOGLOBIN [id number] 20:56:00 Test Item Value Reference Range Interpretation Comments HEMOGLOBIN A1C (BEAKER) (test code = 9.2 % 4.3-6.1 H 368) [id number] 16:44:00 Test Item Value Reference Range Interpretation Comments FERRITIN (BEAKER) (test code = 361) 33 ng/mL 5-275 HEPATITIS A ANTIBODY, [id number] 16:06:00 Test Item Value Reference Range Interpretation Comments HEPATITIS A IGG ANTIBODY (BEAKER) Reactive Nonreactive A (test code = 2797) HEPATITIS B SURFACE [id number] 16:04:00 Test Item Value Reference Range Interpretation Comments HEPATITIS B SURFACE ANTIBODY < mIU/mL <8.0 (BEAKER) (test code = 647) HEPATITIS B CORE ANTIBODY, [id number] 16:03:00 Test Item Value Reference Range Interpretation Comments HEPATITIS B CORE IGM ANTIBODY Nonreactive Nonreactive (BEAKER) (test code = 645) [id number] 16:03:00 Test Item Value Reference Range Interpretation Comments ALPHA-1 ANTITRYPSIN (BEAKER) 184.10 mg/dL 90.00-200.00 (test code = 502) CARCINOEMBRYONIC ANTIGEN (CEA)2018-10-02 16:03:00 Test Item Value Reference Range Interpretation Comments CARCINOEMBRYONIC ANTIGEN (BEAKER) 3.6 ng/mL 0.0-5.0 (test code = 685) ALPHA FETOPROTEIN (AFP), TUMOR [id number] 16:03:00 Test Item Value Reference Range Interpretation Comments ALPHA-FETOPROTEIN (BEAKER) (test 2.6 ng/mL <10.0 code = 1094) HEPATITIS B SURFACE [id number] 15:59:00 Test Item Value Reference Range Interpretation Comments HEPATITIS B SURFACE ANTIGEN (2) Nonreactive Nonreactive (BEAKER) (test code = 2585) HEPATITIS C [id number] 15:59:00 Test Item Value Reference Range Interpretation Comments HEPATITIS C ANTIBODY (BEAKER) Nonreactive Nonreactive (test code = 367) HEPATITIS B CORE ANTIBODY, [id number] 15:59:00 Test Item Value Reference Range Interpretation Comments HEPATITIS B CORE TOTAL ANTIBODY Nonreactive Nonreactive (BEAKER) (test code = 497) HIV-1 ANTIGEN WITH HIV-1/2 [id number] 15:59:00 Test Item Value Reference Range Interpretation Comments HIV-1 ANTIGEN WITH HIV 1\\T\\2 Nonreactive Nonreactive ANTIBODY (2) (BEAKER) (test code = 2586) VITAMIN D, [id number] 15:59:00 Test Item Value Reference Range Interpretation Comments VITAMIN D 25-OH (BEAKER) (test 13.6 ng/mL 6.6-49.9 code = 2764) Effective 08/22/2017: Reference Range ChangeNew: 6.6-49.9 ng/mL Previous: 13.0-47.8 ng/mLRecommended Vitamin D Target Range: 30.0-40.0 ng/[id number] 15:54:00 Test Item Value Reference Range Interpretation Comments T4 TOTAL (BEAKER) (test code = 895) 6.7 ug/dL 4.9-11.7 [id number] 15:54:00 Test Item Value Reference Range Interpretation Comments THYROID STIMULATING HORMONE 3.97 uIU/mL 0.35-4.94 (BEAKER) (test code = 772) [id number] 15:54:00 Test Item Value Reference Range Interpretation Comments T3 TOTAL (BEAKER) (test code = 656) 85 ng/dL 48-159 SCREEN, [id number] 15:46:00 Test Item Value Reference Range Interpretation Comments TEST URINE (BEAKER) (test Negative code = 583) URINALYSIS W/ [id number] 15:46:00 Test Item Value Reference Range Interpretation Comments COLOR (BEAKER) (test code = 470) Yellow CLARITY (BEAKER) (test code = 469) Hazy SPECIFIC GRAVITY UA (BEAKER) (test 1.015 1.001-1.035 code = 468) PH UA (BEAKER) (test code = 467) 6.5 5.0-8.0 PROTEIN UA (BEAKER) (test code = Negative Negative 464) GLUCOSE UA (BEAKER) (test code = Negative Negative 365) KETONES UA (BEAKER) (test code = Negative Negative 371) BILIRUBIN UA (BEAKER) (test code = Negative Negative 462) BLOOD UA (BEAKER) (test code = 461) Small Negative A NITRITE UA (BEAKER) (test code = Negative Negative 465) LEUKOCYTE ESTERASE UA (BEAKER) Large Negative A (test code = 466) UROBILINOGEN UA (BEAKER) (test code 2.0 mg/dL 0.2-1.0 H = 463) RBC UA (BEAKER) (test code = 519) 4 /HPF WBC UA (BEAKER) (test code = 520) 7 /HPF BACTERIA (BEAKER) (test code = 517) Rare MUCUS (BEAKER) (test code = 1574) Rare SQUAMOUS EPITHELIAL (BEAKER) (test 7 /HPF code = 516) SOURCE(BEAKER) (test code = 2795) [id number] 15:40:00 Test Item Value Reference Range Interpretation Comments TRANSFERRIN (BEAKER) (test code = 296 mg/dL 174-382 541) IRON, TIBC, % SAT. (WITHOUT FERRITIN)2018-10-02 15:40:00 Test Item Value Reference Range Interpretation Comments IRON (BEAKER) (test code = 547) 34 ug/dL 40-160 L TOTAL IRON BINDING CAPACITY 370 ug/dL 250-450 (BEAKER) (test code = 769) IRON % SATURATION (2) (BEAKER) 9 % 20-55 L (test code = 2590) PROTHROMBIN [id number] 15:39:00 Test Item Value Reference Range Interpretation Comments PROTIME (BEAKER) (test code = 16.1 seconds 11.7-14.7 H 759) INR (BEAKER) (test code = 370) 1.3 <=5.9 RECOMMENDED COUMADIN/WARFARIN INR THERAPY RANGESSTANDARD DOSE: 2.0 - 3.0 Includes: PROPHYLAXIS forvenous thrombosis, systemic embolization; TREATMENT for venous thrombosis and/or pulmonary embolus.HIGH RISK: Target INR is 2.5-3.5 for patients with mechanical heart valves.URIC [id number] 15:38:00 Test Item Value Reference Range Interpretation Comments URIC ACID (BEAKER) (test code = 4.1 mg/dL 2.6-7.2 773) [id number] 15:38:00 Test Item Value Reference Range Interpretation Comments MAGNESIUM (BEAKER) (test code = 1.8 mg/dL 1.6-2.6 627) [id number] 15:38:00 Test Item Value Reference Range Interpretation Comments PHOSPHORUS (BEAKER) (test code = 3.1 mg/dL 2.3-4.7 604) COMPREHENSIVE METABOLIC [id number] 15:38:00 Test Item Value Reference Range Interpretation Comments TOTAL PROTEIN 7.7 gm/dL 6.0-8.3 (BEAKER) (test code = 770) ALBUMIN (BEAKER) 3.8 g/dL 3.5-5.0 (test code = 1145) ALKALINE PHOSPHATASE 91 U/L 40-150 (BEAKER) (test code = 346) BILIRUBIN TOTAL 1.5 mg/dL 0.2-1.2 H (BEAKER) (test code = 377) SODIUM (BEAKER) (test 137 meq/L 136-145 code = 381) POTASSIUM (BEAKER) 3.9 meq/L 3.5-5.1 (test code = 379) CHLORIDE (BEAKER) 104 meq/L 98-107 (test code = 382) CO2 (BEAKER) (test 27 meq/L 22-29 code = 355) BLOOD UREA NITROGEN 8 mg/dL 7-21 (BEAKER) (test code = 354) CREATININE (BEAKER) 0.79 mg/dL 0.57-1.25 (test code = 358) GLUCOSE RANDOM 149 mg/dL 70-105 H (BEAKER) (test code = 652) CALCIUM (BEAKER) 9.3 mg/dL 8.4-10.2 (test code = 697) AST (SGOT) (BEAKER) 33 U/L 5-34 (test code = 353) ALT (SGPT) (BEAKER) 15 U/L 6-55 (test code = 347) EGFR (BEAKER) (test 72 mL/min/1.73 ESTIMA KIANNA GFR IS code = 1092) sq m NOT ACCURATE CREATININE CLEARANCE IN PREDICTING GLOMERULAR FILTRATION RATE . ESTIMATED GFR I S NOT APPLICABLE FOR DIALYSIS PATIEN TS. LIPID [id number] 15:38:00 Test Item Value Reference Range Interpretation Comments TRIGLYCERIDES (BEAKER) (test code = 67 mg/dL 540) CHOLESTEROL (BEAKER) (test code = 128 mg/dL 631) HDL CHOLESTEROL (BEAKER) (test code 55 mg/dL = 976) LDL CHOLESTEROL CALCULATED (BEAKER) 60 mg/dL (test code = 633) Triglyceride Reference Range: Low Risk <150 Borderline 150-199 High Risk 200-499 Very High Risk >=500Cholesterol Reference Range: Low Risk <200 Borderline 200-239 High Risk >240HDL Cholesterol Reference Range: Low Risk >=60 High Risk <40LDL Cholesterol Reference Range: Optimal <100 Near Optimal 100-129 Borderline 130-159 High 160-189 Very High >=190BILIRUBIN, [id number] 15:38:00 Test Item Value Reference Range Interpretation Comments BILIRUBIN DIRECT (BEAKER) (test 0.7 mg/dL 0.1-0.5 H code = 706) GAMMA GLUTAMYL TRANSFERASE (GGT)2018-10-02 15:38:00 Test Item Value Reference Range Interpretation Comments GAMMA GLUTAMYL TRANSFERASE (BEAKER) 26 U/L 9-64 (test code = 364) [id number] 15:35:00 Test Item Value Reference Range Interpretation Comments FIBRINOGEN LEVEL (BEAKER) (test 252 mg/dl 225-434 code = 658) [id number] 15:35:00 Test Item Value Reference Range Interpretation Comments PARTIAL THROMBOPLASTIN TIME 35.1 seconds 22.5-36.0 (BEAKER) (test code = 760) [id number] 15:26:00 Test Item Value Reference Range Interpretation Comments ETHANOL (BEAKER) (test code = 400) < mg/dL <=10 CBC W/PLT COUNT & AUTO [id number] 15:20:00 Test Item Value Reference Range Interpretation Comments WHITE BLOOD CELL COUNT (BEAKER) 4.7 K/ L 3.5-10.5 (test code = 775) RED BLOOD CELL COUNT (BEAKER) 3.53 M/ L 3.93-5.22 L (test code = 761) HEMOGLOBIN (BEAKER) (test code = 9.6 GM/DL 11.2-15.7 L 410) HEMATOCRIT (BEAKER) (test code = 31.2 % 34.1-44.9 L 411) MEAN CORPUSCULAR VOLUME (BEAKER) 88.4 fL 79.4-94.8 (test code = 753) MEAN CORPUSCULAR HEMOGLOBIN 27.2 pg 25.6-32.2 (BEAKER) (test code = 751) MEAN CORPUSCULAR HEMOGLOBIN CONC 30.8 GM/DL 32.2-35.5 L (BEAKER) (test code = 752) RED CELL DISTRIBUTION WIDTH 14.8 % 11.7-14.4 H (BEAKER) (test code = 412) PLATELET COUNT (BEAKER) (test code 94 K/CU MM 150-450 L = 756) MEAN PLATELET VOLUME (BEAKER) 11.4 fL 9.4-12.3 (test code = 754) NUCLEATED RED BLOOD CELLS (BEAKER) 0 /100 WBC 0-0 (test code = 413) NEUTROPHILS RELATIVE PERCENT 83 % (BEAKER) (test code = 429) LYMPHOCYTES RELATIVE PERCENT 9 % (BEAKER) (test code = 430) MONOCYTES RELATIVE PERCENT 6 % (BEAKER) (test code = 431) EOSINOPHILS RELATIVE PERCENT 1 % (BEAKER) (test code = 432) BASOPHILS RELATIVE PERCENT 0 % (BEAKER) (test code = 437) NEUTROPHILS ABSOLUTE COUNT 3.93 K/ L 1.56-6.13 (BEAKER) (test code = 670) LYMPHOCYTES ABSOLUTE COUNT 0.43 K/ L 1.18-3.74 L (BEAKER) (test code = 414) MONOCYTES ABSOLUTE COUNT (BEAKER) 0.28 K/ L 0.24-0.36 (test code = 415) EOSINOPHILS ABSOLUTE COUNT 0.05 K/ L 0.04-0.36 (BEAKER) (test code = 416) BASOPHILS ABSOLUTE COUNT (BEAKER) 0.02 K/ L 0.01-0.08 (test code = 417) IMMATURE GRANULOCYTES-RELATIVE 0 % 0-1 PERCENT (BEAKER) (test code = 2801) CALCIUM, [id number] 15:05:00 Test Item Value Reference Range Interpretation Comments CALCIUM IONIZED (BEAKER) (test 1.12 mmol/L 1.12-1.27 code = 698) PH, BLOOD (BEAKER) (test code = 7.39 1810) CT, MAXILLOFACIAL AREA, WO [id number] 09:11:00Referring: Dr. Mohsen Padron for exam:->FALLin parking [...] the radiation dose to as low as r easonably achievable. FINDINGS:Brain:Moderate volume loss with frontal predominance. No evidence of infarct or parenchymal hemorrhage. Basal ganglia calcifications likely embolic. No abnormal extra-axial fluid. No midline shift. There is expected passive expansion of the ventricular volumes. Intact calvarium and skull base. Dense vascular calcifications involving the intracranial circulation. Superficial hematoma overlying the left frontal/supraorbital convexity. Maxillofacial region:There is no facial bone [...] caries arepresent. The craniocervical junction, including in the, is intact. Sellar region is unremarkable. Visible portions of the upper aerodigestive tract are clear. IMPRESSION: Superficial soft tissue injuries without facial fracture. No traumatic intracranial abnormality. Signed: JR De Anda Robert MDReport Verified Date/Time: 10/02/2018 09:11:30 Reading Location: [facility] C[address] Neuro Reading Room CT, BRAIN, WITHOUT [id number] 09:02:00Referring: Dr. Mohsen Padron for exam:->FALLin parking garageWhat is the patient's sedation requirement?->No SedationFINAL REPORT CT, BRAIN, WITHOUT CONTRAST CLINICAL INDICATION: Head trauma, headacheFALL COMPARISON: None TECHNIQUE: Noncontrast axial CT imaging of the brain and skull. Noncontr ast CT images of the maxillofacial region. Sagittal [...] hematoma overlying the left frontal/supraorbital convexity. Maxillofacial region:There is no facial bone fracture. Paranasal sinuses reveal mucosal polyposis versus retention cysts bilaterally in the maxillary chambers. Remaining paranasal sinuses are clear. Mastoid air cells are normally pneumatized. Middle ear cavities are unremarkable. Clivus and skull base are intact. The globes are intact. There is no intraconal abnormality. The temporomandibular joints are normally aligned. The mandible is intact. A symmetric parasymphyseal edema is noted superficial on the left. Multiple dental caries are present.The craniocervical junction, including in the, is intact. Sellar region is unremarkable. Visible portions of the upper aerodigestive tract are clear. IMPRESSION: Superficial soft tissue injuries without facial fracture. No traumatic intracranial abnormality. Signed: JR De Anda Robert MDReportVerified Date/Time: 10/02/2018 09:02:30 Reading Location: [facility] C013V Neuro Reading Room RAD, KNEE, 3 VIEWS, [id number] 08:59:00Referring: Dr. Mohsen Gastelum Reason for exam:->FALL in parking garageFINAL REPORT Right knee, 10/02/2018 Four views of the right knee disclose no e vidence of displaced fracture or dislocation. A knee effusion is suggested. There is minor sharpening of the lateral tibial spine consistent with minimal degenerative change. No further osseous abnormalities are identified. Signed: Elida Veras MDReport Verified Date/Time: 10/02/2018 08:59:15 Reading Location: [facility] Diagnostic Imaging Reading Room - [facility] 1.310.12 MR, ABDOMEN, [id number] 16:04:00Referring: Dr. Mohsen Mullentcirrhosis assess for HCCFINAL REPORT TECHNIQUE: MRI of the abdomen WITHOUT and WITH intravenous contrast. INDICATION: 68-year-old woman with cirrhosis. COMPARISON: Abdomen ultrasound 08/30/2017, [...] masses or ductal dilatation. ADRENALS: No adrenal nodules.KIDNEYS/URETERS: No hydronephrosis or solid mass lesions. Unchanged [...] Nodistention or wall thickening. BONES AND SOFT TISSUES: Degenerative changes of the visualized spine.Incompletely evaluated umbilical hernia contains ascitic fluid and possibly a loop of small bowel. OTHER FINDINGS: Incompletely evaluated 9.9 cm cystic structure in [...] MDReport Verified Date/Time: 09/13/2018 16:04:39 Reading Location: [address] Ultrasound Reading Room [id number] 12:33:00 Test Item Value Reference Range Interpretation Comments POC-CREATININE 1.1 mg/dL 0.6-1.3 TESTED AT [facility] 6720 (BEAKER) (test AV[place] ON [place] code = 1859) [address] POC-EGFR (BEAKER) 49 mL/min/1.73M2 (test code = 1860) ALPHA FETOPROTEIN (AFP), TUMOR [id number] 13:45:00 Test Item Value Reference Range Interpretation Comments ALPHA-FETOPROTEIN (BEAKER) (test 2.7 ng/mL <10.0 code = 1094) BASIC METABOLIC [id number] 13:24:00 Test Item Value Reference Range Interpretation Comments SODIUM (BEAKER) 131 meq/L 136-145 L (test code = 381) POTASSIUM (BEAKER) 4.3 meq/L 3.5-5.1 (test code = 379) CHLORIDE (BEAKER) 95 meq/L 98-107 L (test code = 382) CO2 (BEAKER) (test 28 meq/L 22-29 code = 355) BLOOD UREA NITROGEN 13 mg/dL 7-21 (BEAKER) (test code = 354) CREATININE (BEAKER) 1.42 mg/dL 0.57-1.25 H (test code = 358) GLUCOSE RANDOM 506 mg/dL 70-105 HH (BEAKER) (test code = 652) CALCIUM (BEAKER) 9.6 mg/dL 8.4-10.2 (test code = 697) EGFR (BEAKER) (test 37 mL/min/1.73 ESTIMA KIANNA GFR IS code = 1092) sq m NOT ACCURATE CREATININE CLEARANCE IN PREDICTING GLOMERULAR FILTRATION RATE . ESTIMATED GFR I S NOT APPLICABLE FOR DIALYSIS PATIEN TS. HEPATIC FUNCTION [id number] 12:48:00 Test Item Value Reference Range Interpretation Comments TOTAL PROTEIN (BEAKER) (test code = 8.0 gm/dL 6.0-8.3 770) ALBUMIN (BEAKER) (test code = 1145) 3.9 g/dL 3.5-5.0 BILIRUBIN TOTAL (BEAKER) (test code 0.7 mg/dL 0.2-1.2 = 377) BILIRUBIN DIRECT (BEAKER) (test 0.4 mg/dL 0.1-0.5 code = 706) ALKALINE PHOSPHATASE (BEAKER) (test 172 U/L 40-150 H code = 346) AST (SGOT) (BEAKER) (test code = 15 U/L 5-34 353) ALT (SGPT) (BEAKER) (test code = 12 U/L 6-55 347) CBC W/PLT COUNT & AUTO [id number] 12:36:00 Test Item Value Reference Range Interpretation Comments WHITE BLOOD CELL COUNT (BEAKER) 3.6 K/ L 3.5-10.5 (test code = 775) RED BLOOD CELL COUNT (BEAKER) 3.32 M/ L 3.93-5.22 L (test code = 761) HEMOGLOBIN (BEAKER) (test code = 9.3 GM/DL 11.2-15.7 L 410) HEMATOCRIT (BEAKER) (test code = 28.5 % 34.1-44.9 L 411) MEAN CORPUSCULAR VOLUME (BEAKER) 85.8 fL 79.4-94.8 (test code = 753) MEAN CORPUSCULAR HEMOGLOBIN 28.0 pg 25.6-32.2 (BEAKER) (test code = 751) MEAN CORPUSCULAR HEMOGLOBIN CONC 32.6 GM/DL 32.2-35.5 (BEAKER) (test code = 752) RED CELL DISTRIBUTION WIDTH 16.3 % 11.7-14.4 H (BEAKER) (test code = 412) PLATELET COUNT (BEAKER) (test code 71 K/CU MM 150-450 L = 756) MEAN PLATELET VOLUME (BEAKER) 11.1 fL 9.4-12.3 (test code = 754) NUCLEATED RED BLOOD CELLS (BEAKER) 0 /100 WBC 0-0 (test code = 413) NEUTROPHILS RELATIVE PERCENT 81 % (BEAKER) (test code = 429) LYMPHOCYTES RELATIVE PERCENT 10 % (BEAKER) (test code = 430) MONOCYTES RELATIVE PERCENT 7 % (BEAKER) (test code = 431) EOSINOPHILS RELATIVE PERCENT 1 % (BEAKER) (test code = 432) BASOPHILS RELATIVE PERCENT 1 % (BEAKER) (test code = 437) NEUTROPHILS ABSOLUTE COUNT 2.90 K/ L 1.56-6.13 (BEAKER) (test code = 670) LYMPHOCYTES ABSOLUTE COUNT 0.35 K/ L 1.18-3.74 L (BEAKER) (test code = 414) MONOCYTES ABSOLUTE COUNT (BEAKER) 0.26 K/ L 0.24-0.36 (test code = 415) EOSINOPHILS ABSOLUTE COUNT 0.05 K/ L 0.04-0.36 (BEAKER) (test code = 416) BASOPHILS ABSOLUTE COUNT (BEAKER) 0.02 K/ L 0.01-0.08 (test code = 417) IMMATURE GRANULOCYTES-RELATIVE 0 % 0-1 PERCENT (BEAKER) (test code = 2801) PROTHROMBIN [id number] 12:32:00 Test Item Value Reference Range Interpretation Comments PROTIME (BEAKER) (test code = 15.9 seconds 11.7-14.7 H 759) INR (BEAKER) (test code = 370) 1.3 <=5.9 RECOMMENDED COUMADIN/WARFARIN INR THERAPY RANGESSTANDARD DOSE: 2.0 - 3.0 Includes: PROPHYLAXIS forvenous thrombosis, systemic embolization; TREATMENT for venous thrombosis and/or pulmonary embolus.HIGH RISK: Target INR is 2.5-3.5 for patients with mechanical heart valves.[id number] 11:00:00 Test Item Value Reference Range Interpretation Comments FERRITIN (BEAKER) (test code = 361) 34 ng/mL 5-275 HEPATIC FUNCTION [id number] 10:44:00 Test Item Value Reference Range Interpretation Comments TOTAL PROTEIN (BEAKER) (test code = 7.4 gm/dL 6.0-8.3 770) ALBUMIN (BEAKER) (test code = 1145) 3.6 g/dL 3.5-5.0 BILIRUBIN TOTAL (BEAKER) (test code 0.7 mg/dL 0.2-1.2 = 377) BILIRUBIN DIRECT (BEAKER) (test 0.3 mg/dL 0.1-0.5 code = 706) ALKALINE PHOSPHATASE (BEAKER) (test 109 U/L 40-150 code = 346) AST (SGOT) (BEAKER) (test code = 23 U/L 5-34 353) ALT (SGPT) (BEAKER) (test code = 16 U/L 6-55 347) BASIC METABOLIC [id number] 10:44:00 Test Item Value Reference Range Interpretation Comments SODIUM (BEAKER) 138 meq/L 136-145 (test code = 381) POTASSIUM (BEAKER) 4.4 meq/L 3.5-5.1 (test code = 379) CHLORIDE (BEAKER) 106 meq/L 98-107 (test code = 382) CO2 (BEAKER) (test 25 meq/L 22-29 code = 355) BLOOD UREA NITROGEN 14 mg/dL 7-21 (BEAKER) (test code = 354) CREATININE (BEAKER) 0.93 mg/dL 0.57-1.25 (test code = 358) GLUCOSE RANDOM 90 mg/dL 70-105 (BEAKER) (test code = 652) CALCIUM (BEAKER) 8.7 mg/dL 8.4-10.2 (test code = 697) EGFR (BEAKER) (test 60 mL/min/1.73 ESTIMA KIANNA GFR IS code = 1092) sq m NOT ACCURATE CREATININE CLEARANCE IN PREDICTING GLOMERULAR FILTRATION RATE . ESTIMATED GFR I S NOT APPLICABLE FOR DIALYSIS PATIEN TS. IRON, TIBC, % SAT. (WITHOUT FERRITIN)2017-09-26 10:39:00 Test Item Value Reference Range Interpretation Comments IRON (BEAKER) (test code = 547) 37 ug/dL 40-160 L TOTAL IRON BINDING CAPACITY 365 ug/dL 250-450 (BEAKER) (test code = 769) IRON % SATURATION (2) (BEAKER) 10 % 20-55 L (test code = 2590) CBC W/PLT COUNT & AUTO [id number] 10:26:00 Test Item Value Reference Range Interpretation Comments WHITE BLOOD CELL COUNT (BEAKER) 3.9 K/ L 3.5-10.5 (test code = 775) RED BLOOD CELL COUNT (BEAKER) 3.85 M/ L 3.93-5.22 L (test code = 761) HEMOGLOBIN (BEAKER) (test code = 9.1 GM/DL 11.2-15.7 L 410) HEMATOCRIT (BEAKER) (test code = 30.6 % 34.1-44.9 L 411) MEAN CORPUSCULAR VOLUME (BEAKER) 79.5 fL 79.4-94.8 (test code = 753) MEAN CORPUSCULAR HEMOGLOBIN 23.6 pg 25.6-32.2 L (BEAKER) (test code = 751) MEAN CORPUSCULAR HEMOGLOBIN CONC 29.7 GM/DL 32.2-35.5 L (BEAKER) (test code = 752) RED CELL DISTRIBUTION WIDTH 23.3 % 11.7-14.4 H (BEAKER) (test code = 412) PLATELET COUNT (BEAKER) (test code 89 K/CU MM 150-450 L = 756) MEAN PLATELET VOLUME (BEAKER) 11.5 fL 9.4-12.3 (test code = 754) NUCLEATED RED BLOOD CELLS (BEAKER) 0 /100 WBC 0-0 (test code = 413) NEUTROPHILS RELATIVE PERCENT 80 % (BEAKER) (test code = 429) LYMPHOCYTES RELATIVE PERCENT 11 % (BEAKER) (test code = 430) MONOCYTES RELATIVE PERCENT 7 % (BEAKER) (test code = 431) EOSINOPHILS RELATIVE PERCENT 2 % (BEAKER) (test code = 432) BASOPHILS RELATIVE PERCENT 1 % (BEAKER) (test code = 437) NEUTROPHILS ABSOLUTE COUNT 3.09 K/ L 1.56-6.13 (BEAKER) (test code = 670) LYMPHOCYTES ABSOLUTE COUNT 0.42 K/ L 1.18-3.74 L (BEAKER) (test code = 414) MONOCYTES ABSOLUTE COUNT (BEAKER) 0.27 K/ L 0.24-0.36 (test code = 415) EOSINOPHILS ABSOLUTE COUNT 0.07 K/ L 0.04-0.36 (BEAKER) (test code = 416) BASOPHILS ABSOLUTE COUNT (BEAKER) 0.02 K/ L 0.01-0.08 (test code = 417) IMMATURE GRANULOCYTES-RELATIVE 0 % 0-1 PERCENT (BEAKER) (test code = 2801) PROTHROMBIN [id number] 10:19:00 Test Item Value Reference Range Interpretation Comments PROTIME (BEAKER) (test code = 15.6 seconds 11.7-14.7 H 759) INR (BEAKER) (test code = 370) 1.3 <=5.9 RECOMMENDED COUMADIN/WARFARIN INR THERAPY RANGESSTANDARD DOSE: 2.0 - 3.0 Includes: PROPHYLAXIS forvenous thrombosis, systemic embolization; TREATMENT for venous thrombosis and/or pulmonary embolus.HIGH RISK: Target INR is 2.5-3.5 for patients with mechanical heart valves.RAD, CHEST, 2 [id number] 09:58:00 Reason for Exam:->follow up pleural effusion, follow up [...] The cardiomediastinal silhouette is within normal limits. Atheros clerotic calcification of the aorta. Degenerative changes of the spine are present. No acute osseousabnormality. Signed: Neha Roth MDReport Verified Date/Time: 09/26/2017 09:58:49 Reading Location: [facility] Mammo Reading Room FLUID CULTURE + GRAM [id number] 08:01:00 Test Item Value Reference Range Interpretation Comments CULTURE (BEAKER) (test code No growth = 1095) GRAM STAIN RESULT (BEAKER) <1+ WBCs (test code = 1123) GRAM STAIN RESULT (BEAKER) No organisms seen (test code = 68332) [id number] 21:07:00Medical Cytology Report Case: [id number] Authorizing Provider: Russ Burgos MD Collected: 08/30/2017 1600 Ordering Location: [facility] Radiology Ultrasound Received: 08/31/2017 1011 Pathologist: Maricruz Nixon MD Specimen: Peritoneal Fluid PERITONEAL FLUID (CYTOSPINS): - NO MALIGNANT CELLS IDENTIFIED Signing Pathologist Direct Phone Line: [phone] signed by Maricruz Nixon MD on 08/31/2017 at 9:07 PMCytospins show mesothelial cells, macrophages and mixed inflammatory cells. Mild atypia is seen in the range of reactive changes. No diagnostic features of malignancy are seen. Clinical correlation is recommended. [id number]; liver cirrhosis PERITONEAL FLUID4 cytospins kkhqgnmc1559 ml yellow fluidCollected: [id number]: [id number] [facility], Department of Pathology, [address] [place] [address], [facility], [address] [place] [address], CTNL FLUID CELL COUNT WITH [id number] 10:35:00 Test Item Value Reference Range Interpretation Comments APPEARANCE FLUID (BEAKER) Clear Clear (test code = 510) COLOR FLUID (BEAKER) (test Yellow Colorless, Straw A Pale yellow code = 511) RBC FLUID (BEAKER) (test code 213 /cu mm <=1 H = 513) ADJUSTED WBC FLUID (BEAKER) 78 /cu mm <=5 H (test code = 1691) LINING CELLS (BEAKER) (test 2 /cu mm <=1 H code = 1590) NEUTROPHILS FLUID (BEAKER) 9 % (test code = 1656) LYMPHS FLUID (BEAKER) (test 14 % code = 488) MONO/MACROPHAGE FLUID (BEAKER) 77 % (test code = 489) EOSINOPHILS FLUID (BEAKER) 0 % (test code = 491) BASO FLUID (BEAKER) (test code 0 % = 492) CONTAINER BODY FLUID (BEAKER) EDTA Tube (test code = 2873) TRIGLYCERIDES, BODY [id number] 09:34:00 Test Item Value Reference Range Interpretation Comments TRIGLYCERIDES FLUID (BEAKER) (test < mg/dL code = 539) Reference Range: No Normals Assay performance has not been validated for this type of specimen.ALBUMIN, BODY [id number] 09:34:00 Test Item Value Reference Range Interpretation Comments ALBUMIN FLUID (BEAKER) (test code = 0.4 gm/dL 501) Reference Range: No Normals Assay performance has not been validated for this type of specimen.PROTEIN, BODY [id number] 09:34:00 Test Item Value Reference Range Interpretation Comments PROTEIN FLUID (BEAKER) (test code = < g/dL 579) Absence of reference range indicates that normals have not been defined.Assay performance has not been validated for this type of specimen.CT, CHEST, WITHOUT [id number] 17:13:00FINAL REPORT TECHNIQUE: CT scan of the chest WITHOUT intravenous contrast. Dose modulation, iterative reconstruction, and/or weight-based adjustment of the mA/kV was utilized to r educe the radiation dose to as low as [...] MDReport Verified Date/Time: 08/30/2017 17:13:58 Reading Location: [facility] [id number] CT Body Reading Room U/S, ABDOMINAL, WITH [id number] 16:44:00Reason for Exam:->cirrhosis, screen for HCC, evaluate [...] Signed: Tanner Quintanilla MDReport Verified Date/Time: 08/30/2017 16:44:30 Reading Location: [place] [id number] Ultrasound Reading Room U/S, [id number] 16:06:00Please send ascitic fluid for cell count [...] skin and deep soft tissues. A 5 Indonesian multi-sidehole catheter was inserted and removed from the peritoneal space and approximately 1050 milliliters of clear yellow fluid was aspirated from the abdomen. Specimens were collected for the lab. There were no immediate complications. Impression: Successful ultras ound guided paracentesis with aspiration of 1050 mL of clear yellow fluid. Signed: Tanner Quintanilla MDReport Verified Date/Time: 08/30/2017 16:06:12 Reading Location: [facility] [id number] Ultrasound Reading Room ALPHA FETOPROTEIN (AFP), TUMOR MARKER 2017-08-29 15:39:00 Test Item Value Reference Range Interpretation Comments ALPHA-FETOPROTEIN (BEAKER) (test 3.3 ng/mL <10.0 code = 1094) CBC W/PLT COUNT & AUTO [id number] 15:31:00 Test Item Value Reference Range Interpretation Comments WHITE BLOOD CELL COUNT (BEAKER) 4.4 K/ L 3.5-10.5 (test code = 775) RED BLOOD CELL COUNT (BEAKER) 4.22 M/ L 3.93-5.22 (test code = 761) HEMOGLOBIN (BEAKER) (test code = 9.4 GM/DL 11.2-15.7 L 410) HEMATOCRIT (BEAKER) (test code = 31.8 % 34.1-44.9 L 411) MEAN CORPUSCULAR VOLUME (BEAKER) 75.4 fL 79.4-94.8 L (test code = 753) MEAN CORPUSCULAR HEMOGLOBIN 22.3 pg 25.6-32.2 L (BEAKER) (test code = 751) MEAN CORPUSCULAR HEMOGLOBIN CONC 29.6 GM/DL 32.2-35.5 L (BEAKER) (test code = 752) RED CELL DISTRIBUTION WIDTH 20.0 % 11.7-14.4 H (BEAKER) (test code = 412) PLATELET COUNT (BEAKER) (test code 89 K/CU MM 150-450 L = 756) MEAN PLATELET VOLUME (BEAKER) 10.2 fL 9.4-12.3 (test code = 754) NUCLEATED RED BLOOD CELLS (BEAKER) 0 /100 WBC 0-0 (test code = 413) NEUTROPHILS RELATIVE PERCENT 84 % (BEAKER) (test code = 429) LYMPHOCYTES RELATIVE PERCENT 8 % (BEAKER) (test code = 430) MONOCYTES RELATIVE PERCENT 8 % (BEAKER) (test code = 431) EOSINOPHILS RELATIVE PERCENT 0 % (BEAKER) (test code = 432) BASOPHILS RELATIVE PERCENT 0 % (BEAKER) (test code = 437) NEUTROPHILS ABSOLUTE COUNT 3.65 K/ L 1.56-6.13 (BEAKER) (test code = 670) LYMPHOCYTES ABSOLUTE COUNT 0.34 K/ L 1.18-3.74 L (BEAKER) (test code = 414) MONOCYTES ABSOLUTE COUNT (BEAKER) 0.34 K/ L 0.24-0.36 (test code = 415) EOSINOPHILS ABSOLUTE COUNT 0.01 K/ L 0.04-0.36 L (BEAKER) (test code = 416) BASOPHILS ABSOLUTE COUNT (BEAKER) 0.01 K/ L 0.01-0.08 (test code = 417) IMMATURE GRANULOCYTES-RELATIVE 1 % 0-1 PERCENT (BEAKER) (test code = 2801) HEPATIC FUNCTION [id number] 15:15:00 Test Item Value Reference Range Interpretation Comments TOTAL PROTEIN (BEAKER) (test code = 8.4 gm/dL 6.0-8.3 H 770) ALBUMIN (BEAKER) (test code = 1145) 4.0 g/dL 3.5-5.0 BILIRUBIN TOTAL (BEAKER) (test code 1.0 mg/dL 0.2-1.2 = 377) BILIRUBIN DIRECT (BEAKER) (test 0.5 mg/dL 0.1-0.5 code = 706) ALKALINE PHOSPHATASE (BEAKER) (test 106 U/L 40-150 code = 346) AST (SGOT) (BEAKER) (test code = 29 U/L 5-34 353) ALT (SGPT) (BEAKER) (test code = 17 U/L 6-55 347) BASIC METABOLIC [id number] 15:15:00 Test Item Value Reference Range Interpretation Comments SODIUM (BEAKER) 140 meq/L 136-145 (test code = 381) POTASSIUM (BEAKER) 3.6 meq/L 3.5-5.1 (test code = 379) CHLORIDE (BEAKER) 105 meq/L 98-107 (test code = 382) CO2 (BEAKER) (test 25 meq/L 22-29 code = 355) BLOOD UREA NITROGEN 11 mg/dL 7-21 (BEAKER) (test code = 354) CREATININE (BEAKER) 0.76 mg/dL 0.57-1.25 (test code = 358) GLUCOSE RANDOM 62 mg/dL 70-105 L (BEAKER) (test code = 652) CALCIUM (BEAKER) 9.3 mg/dL 8.4-10.2 (test code = 697) EGFR (BEAKER) (test 75 mL/min/1.73 ESTIMA KIANNA GFR IS code = 1092) sq m NOT ACCURATE CREATININE CLEARANCE IN PREDICTING GLOMERULAR FILTRATION RATE . ESTIMATED GFR I S NOT APPLICABLE FOR DIALYSIS PATIEN TS. PROTHROMBIN [id number] 15:06:00 Test Item Value Reference Range Interpretation Comments PROTIME (BEAKER) (test code = 16.5 seconds 11.7-14.7 H 759) INR (BEAKER) (test code = 370) 1.3 <=5.9 RECOMMENDED COUMADIN/WARFARIN INR THERAPY RANGESSTANDARD DOSE: 2.0 - 3.0 Includes: PROPHYLAXIS forvenous thrombosis, systemic embolization; TREATMENT for venous thrombosis and/or pulmonary embolus.HIGH RISK: Target INR is 2.5-3.5 for patients with mechanical heart valves.ALPHA FETOPROTEIN (AFP), TUMOR MARKER 2017-01-18 14:27:00 Test Item Value Reference Range Interpretation Comments ALPHA-FETOPROTEIN (BEAKER) (test 4.0 ng/mL <10.0 code = 1094) Effective 09/29/2014: Reference Range ChangeNew: <10.0 Previous: 0.0-8.0 HEPATIC FUNCTION [id number] 13:59:00 Test Item Value Reference Range Interpretation Comments TOTAL PROTEIN (BEAKER) (test code = 7.9 gm/dL 6.0-8.3 770) ALBUMIN (BEAKER) (test code = 1145) 3.9 g/dL 3.5-5.0 BILIRUBIN TOTAL (BEAKER) (test code 0.8 mg/dL 0.2-1.2 = 377) BILIRUBIN DIRECT (BEAKER) (test 0.4 mg/dL 0.1-0.5 code = 706) ALKALINE PHOSPHATASE (BEAKER) (test 108 U/L 40-150 code = 346) AST (SGOT) (BEAKER) (test code = 35 U/L 5-34 H 353) ALT (SGPT) (BEAKER) (test code = 24 U/L 6-55 347) BASIC METABOLIC [id number] 13:59:00 Test Item Value Reference Range Interpretation Comments SODIUM (BEAKER) 140 meq/L 136-145 (test code = 381) POTASSIUM (BEAKER) 4.1 meq/L 3.5-5.1 (test code = 379) CHLORIDE (BEAKER) 107 meq/L 98-107 (test code = 382) CO2 (BEAKER) (test 28 meq/L 22-29 code = 355) BLOOD UREA NITROGEN 12 mg/dL 7-21 (BEAKER) (test code = 354) CREATININE (BEAKER) 0.81 mg/dL 0.57-1.25 (test code = 358) GLUCOSE RANDOM 61 mg/dL 70-105 L (BEAKER) (test code = 652) CALCIUM (BEAKER) 9.5 mg/dL 8.4-10.2 (test code = 697) EGFR (BEAKER) (test 70 mL/min/1.73 ESTIMA KIANNA GFR IS code = 1092) sq m NOT ACCURATE CREATININE CLEARANCE IN PREDICTING GLOMERULAR FILTRATION RATE . ESTIMATED GFR I S NOT APPLICABLE FOR DIALYSIS PATIEN TS. PROTHROMBIN [id number] 13:42:00 Test Item Value Reference Range Interpretation Comments PROTIME (BEAKER) (test code = 14.8 seconds 11.7-14.7 H 759) INR (BEAKER) (test code = 370) 1.2 <=5.9 RECOMMENDED COUMADIN/WARFARIN INR THERAPY RANGESSTANDARD DOSE: 2.0 - 3.0 Includes: PROPHYLAXIS forvenous thrombosis, systemic embolization; TREATMENT for venous thrombosis and/or pulmonary embolus.HIGH RISK: Target INR is 2.5-3.5 for patients with mechanical heart valves.CBC W/PLT COUNT & AUTO DIFFERENTIAL 2017-01-18 13:35:00 Test Item Value Reference Range Interpretation Comments WHITE BLOOD CELL COUNT (BEAKER) 4.0 K/ L 4.0-10.0 (test code = 775) RED BLOOD CELL COUNT (BEAKER) 3.60 M/ L 4.00-5.00 L (test code = 761) HEMOGLOBIN (BEAKER) (test code = 10.2 GM/DL 12.0-15.0 L 410) HEMATOCRIT (BEAKER) (test code = 29.8 % 36.0-45.0 L 411) MEAN CORPUSCULAR VOLUME (BEAKER) 82.7 fL 82.0-99.0 (test code = 753) MEAN CORPUSCULAR HEMOGLOBIN 28.4 pg 27.0-33.0 (BEAKER) (test code = 751) MEAN CORPUSCULAR HEMOGLOBIN CONC 34.4 GM/DL 32.0-36.0 (BEAKER) (test code = 752) RED CELL DISTRIBUTION WIDTH 15.3 % 10.3-14.2 H (BEAKER) (test code = 412) PLATELET COUNT (BEAKER) (test code 81 K/CU MM 150-430 L = 756) MEAN PLATELET VOLUME (BEAKER) 9.3 fL 6.5-10.5 (test code = 754) NUCLEATED RED BLOOD CELLS (BEAKER) 0 /100 WBC 0-0 (test code = 413) NEUTROPHILS RELATIVE PERCENT 76 % (BEAKER) (test code = 429) LYMPHOCYTES RELATIVE PERCENT 14 % (BEAKER) (test code = 430) MONOCYTES RELATIVE PERCENT 7 % (BEAKER) (test code = 431) EOSINOPHILS RELATIVE PERCENT 1 % (BEAKER) (test code = 432) BASOPHILS RELATIVE PERCENT 2 % (BEAKER) (test code = 437) NEUTROPHILS ABSOLUTE COUNT 3.03 K/ L 1.80-8.00 (BEAKER) (test code = 670) LYMPHOCYTES ABSOLUTE COUNT 0.56 K/ L 1.48-4.50 L (BEAKER) (test code = 414) MONOCYTES ABSOLUTE COUNT (BEAKER) 0.28 K/ L 0.00-1.30 (test code = 415) EOSINOPHILS ABSOLUTE COUNT 0.05 K/ L 0.00-0.50 (BEAKER) (test code = 416) BASOPHILS ABSOLUTE COUNT (BEAKER) 0.07 K/ L 0.00-0.20 (test code = 417) 0.00
[2021-01-02] MEDS ORDERED: FAMOTIDINE 20 MG/2 ML VIAL IV ONE (01:15)
[2021-01-02] MEDS ORDERED: ONDANSETRON 4 MG/2 ML VIAL ONE (01:15)
[2021-01-02] MEDS ORDERED: NA CHLORIDE 0.9% 1,000 ML ONE (01:15)
[2021-01-02 01:21] LABS: Absolute Lymphocytes (CBC) 0.1 K/uL (0.7-4.9); Basophils % 0.6 % (0-1.3); Hematocrit 26.6 % (36.0-45.0); MPV 8.4 fL (7.6-11.3); RBC Red Blood Cell Count 3.11 M/uL (3.86-4.86)
[2021-01-02 03:18] LABS: Bilirubin Direct 0.5 mg/dL (0-0.2); Bilirubin Total 1.1 mg/dL (0.2-1.0); Potassium 4.3 mmol/L (3.5-5.1); Protein, Total 7.7 g/dL (6.4-8.2)
--- NOTE | 2021-01-02 04:54 | ER ---
Nurse's Notes [facility] Name: Christie Solitario Age: 70 yrs Sex: Female : 1950 Arrival Date: 01/02/2021 Time: 00:13 Bed 6 Private MD: Abhijit Fernandez T Diagnosis: Colitis;Liver Cirrhosis;Ascites;Right Pleural Effusion-Chronic;Inguinal Hernia-Chronic Presentation: 01/02 00:36 Chief complaint: Patient states: Vomiting and diarrhea x 3 days; reports feeling lp1 fatigue; states feeling like she had a fever on the first day; family member states there seems to be a stomach bug going around household. Coronavirus screen: Client denies travel out of the [place] in the last 14 days. diarrhea, vomiting. Client presents with at least one sign or symptom that may indicate coronavirus-19. Standard/surgical mask placed on the client. Provider contacted for isolation considerations. Ebola Screen: No symptoms or risks identified at this time. Risk Assessment: Do you want to hurt yourself or someone else? Patient reports no desire to harm self or others. Onset of symptoms was January 02, 2021. 00:36 Method Of Arrival: Wheelchair lp1 00:36 Acuity: JM 3 lp1 01:03 Initial Sepsis Screen: Does the patient meet any 2 criteria? No. Patient's initial mg2 sepsis screen is negative. Does the patient have a suspected source of infection? No. Patient's initial sepsis screen is negative. Historical: - Allergies: 00:40 No Known Allergies; lp1 - Home Meds: 00:40 levothyroxine 75 mcg oral tab once daily [Active]; tramadol 50 mg oral tab twice a day lp1 [Active]; trazodone 50 mg Oral tab nightly [Active]; pantoprazole 40 mg Oral TbEC 1 tab once daily [Active]; ferrous sulfate 325 mg (65 mg iron) Oral tab daily [Active]; spironolactone 50 mg Oral tab 1 tab once daily [Active]; SQ insulin (unknown) [Active]; - PMHx: 00:40 Cirrhosis; Diabetes - IDDM; Hernia; Hypertension; lp1 - PSHx: 00:40 None; lp1 - Immunization history:: Adult Immunizations up to date. - Social history:: Smoking status: Patient denies any tobacco usage or history of. Screenin:41 Abuse screen: Denies threats or abuse. Denies injuries from another. Nutritional lp1 screening: No deficits noted. Tuberculosis screening: No symptoms or risk factors identified. 01:04 Fall Risk IV access (20 points). mg2 Assessment: 01:02 General: Appears in no apparent distress. comfortable, Behavior is calm, cooperative. mg2 Pain: Complains of pain in chest. Neuro: Level of Consciousness is awake, alert, obeys commands, Oriented to person, place, time, situation. Cardiovascular: Capillary refill < 3 seconds Patient's skin is warm and dry. Respiratory: Airway is patent Respiratory effort is even, unlabored, Respiratory pattern is regular, symmetrical. GI: Abdomen is round distended, Reports diarrhea, vomiting, since 3 days. : No signs and/or symptoms were reported regarding the genitourinary system. EENT: No signs and/or symptoms were reported regarding the EENT system. Derm: Skin is intact, Skin is pale. Musculoskeletal: Circulation, motion, and sensation intact. Capillary refill < 3 seconds. 01:49 Reassessment: Patient appears in no apparent distress at this time. Patient and/or mg2 family updated on plan of care and expected duration. Pain level reassessed. Patient is alert, oriented x 3, equal unlabored respirations, skin warm/dry/pink. 02:40 Reassessment: Patient appears in no apparent distress at this time. Patient is alert, rr5 oriented x 3, equal unlabored respirations, skin warm/dry/pink. 03:08 Reassessment: Louis (son)- [phone]. mg2 03:57 Reassessment: patient asleep, both eyes closed, unlabored respirations. mg2 Vital Signs: 01:03 BP 134 / 57; Pulse 77; Resp 18; Temp 98.5; Pulse Ox 100% on R/A; Weight 57.15 kg; mg2 Height 5 ft. 2 in. (157.48 cm); 01:49 BP 120 / 56; Pulse 70; Resp 18; Pulse Ox 100% on R/A; mg2 02:40 BP 116 / 59; Pulse 75; Resp 19; Pulse Ox 99% ; rr5 03:58 BP 116 / 55; Pulse 70; Resp 18; Pulse Ox 99% on R/A; mg2 05:32 BP 115 / 60; Pulse 65; Resp 18; Pulse Ox 100% on R/A; mg2 01:03 Body Mass Index 23.05 (57.15 kg, 157.48 cm) mg2 ED Course: 00:13 Patient arrived in ED. am4 00:13 Abhijit Fernandez MD is Private Physician. am4 00:29 Rhys Plata MD is Attending Physician. mh7 00:38 Triage completed. lp1 00:38 Arm band placed on. lp1 00:49 Nicki Moncada, RN is Primary Nurse. zb 01:00 Inserted saline lock: 20 gauge in right antecubital area, using aseptic technique. mg2 Blood collected. 01:03 No provider procedures requiring assistance completed. mg2 01:04 Patient has correct armband on for positive identification. audio production engineer on. Pulse mg2 ox on. NIBP on. Door closed. Warm blanket given. 01:49 Jayy Stanley, BAUDILIO is Primary Nurse. mg2 03:18 Chest Abd Pelvis Wo Con In Process Unspecified. EDMS 05:32 IV discontinued, intact, bleeding controlled, No redness/swelling at site. Pressure mg2 dressing applied. Administered Medications: 01:02 Drug: Zofran (Ondansetron) 4 mg Route: IVP; Site: right antecubital; mg2 04:30 Follow up: Response: No adverse reaction mg2 01:02 Drug: Pepcid 20 mg Route: IVP; Site: right antecubital; mg2 04:30 Follow up: Response: No adverse reaction mg2 01:02 Drug: NS 0.9% 1000 ml Route: IV; Rate: 1000 ml; Site: right antecubital; mg2 04:30 Follow up: Response: No adverse reaction; IV Status: Completed infusion; IV Intake: mg2 1000ml 05:16 Drug: KeFLEX 250 mg Route: PO; mg2 05:16 Follow up: Response: No adverse reaction; Medication administered at discharge. mg2 05:16 Drug: Flagyl 250 mg Route: PO; mg2 05:16 Follow up: Response: No adverse reaction; Medication administered at discharge. mg2 Intake: 04:30 IV: 1000ml; Total: 1000ml. mg2 Outcome: 04:53 Discharge ordered by . mh7 05:32 Discharged to home via wheelchair. mg2 05:32 Condition: stable 05:32 Discharge instructions given to patient, Instructed on discharge instructions, follow up and referral plans. medication usage, Demonstrated understanding of instructions, follow-up care, medications, Prescriptions given X 4. 05:33 Patient left the ED. mg2 Signatures: Dispatcher [employer] EDMS Shasha Villasenor RN RN lp1 Jayy Stanley RN RN mg2 Kayden Orr RN RN rr5 Rhys Plata MD MD 7 Nicki Moncada RN RN Swati Souza am4 Corrections: (The following items were deleted from the chart) 01:50 01:02 GI: Abdomen is flat, non-distended, Reports diarrhea, vomiting, since 3 days mg2 mg2 03:18 03:10 In radiology for Abdomen Pelvis Wo Con+CT.RAD.BRZ. EDMS EDMS
--- NOTE | 2021-01-02 04:54 | EDPHYS ---
Physician Documentation [facility] Name: Christie Solitario Age: 70 yrs Sex: Female : 1950 Arrival Date: 01/02/2021 Time: 00:13 Bed 6 Private MD: Abhijit Fernandez T ED Physician Rhys Plata HPI: 01/02 00:57 This 70 yrs old Female presents to ER via Wheelchair with complaints of mh7 Nausea/Vomiting/Diarrhea. 00:57 The patient presents to the emergency department with nausea, that is moderate, mh7 vomiting, that is intermittent, described as clear fluid, diarrhea, that is intermittent. Onset: The symptoms/episode began/occurred 3 day(s) ago. Possible causes: sick contacts, by family, . The symptoms are aggravated by nothing. The symptoms are alleviated by nothing. Associated signs and symptoms: Pertinent negatives: abdominal pain, anorexia, belching, constipation, dysuria, fever, flatulence, GI bleeding, hematuria, vaginal discharge. Severity of symptoms: At their worst the symptoms were moderate yesterday, in the emergency department the symptoms are unchanged. Historical: - Allergies: 00:40 No Known Allergies; lp1 - Home Meds: 00:40 levothyroxine 75 mcg oral tab once daily [Active]; tramadol 50 mg oral tab twice a day lp1 [Active]; trazodone 50 mg Oral tab nightly [Active]; pantoprazole 40 mg Oral TbEC 1 tab once daily [Active]; ferrous sulfate 325 mg (65 mg iron) Oral tab daily [Active]; spironolactone 50 mg Oral tab 1 tab once daily [Active]; SQ insulin (unknown) [Active]; - PMHx: 00:40 Cirrhosis; Diabetes - IDDM; Hernia; Hypertension; lp1 - PSHx: 00:40 None; lp1 - Immunization history:: Adult Immunizations up to date. - Social history:: Smoking status: Patient denies any tobacco usage or history of. ROS: 00:57 Constitutional: Negative for fever, chills, and weight loss, Eyes: Negative for injury, mh7 pain, redness, and discharge, ENT: Negative for injury, pain, and discharge, Neck: Negative for injury, pain, and swelling, Cardiovascular: Negative for chest pain, palpitations, and edema, Respiratory: Negative for shortness of breath, cough, wheezing, and pleuritic chest pain, Back: Negative for injury and pain, : Negative for injury, bleeding, discharge, and swelling, MS/Extremity: Negative for injury and deformity, Skin: Negative for injury, rash, and discoloration, Neuro: Negative for headache, weakness, numbness, tingling, and seizure, Psych: Negative for depression, anxiety, suicide ideation, homicidal ideation, and hallucinations, Allergy/Immunology: Negative for hives, rash, and allergies, Endocrine: Negative for neck swelling, polydipsia, polyuria, polyphagia, and marked weight changes, Hematologic/Lymphatic: Negative for swollen nodes, abnormal bleeding, and unusual bruising. Exam: :22 Constitutional: This is a well developed, well nourished patient who is awake, alert, mh7 and in no acute distress. Head/Face: Normocephalic, atraumatic. Eyes: Pupils equal round and reactive to light, extra-ocular motions intact. Lids and lashes normal. Conjunctiva and sclera are non-icteric and not injected. Cornea within normal limits. Periorbital areas with no swelling, redness, or edema. Neck: Trachea midline, no thyromegaly or masses palpated, and no cervical lymphadenopathy. Supple, full range of motion without nuchal rigidity, or vertebral point tenderness. No Meningismus. Chest/axilla: Normal chest wall appearance and motion. Nontender with no deformity. No lesions are appreciated. Cardiovascular: Regular rate and rhythm with a normal S1 and S2. No gallops, murmurs, or rubs. Normal PMI, no JVD. No pulse deficits. Respiratory: Lungs have equal breath sounds bilaterally, clear to auscultation and percussion. No rales, rhonchi or wheezes noted. No increased work of breathing, no retractions or nasal flaring. :22 Back: No spinal tenderness. No costovertebral tenderness. Full range of motion. Skin: Warm, dry with normal turgor. Normal color with no rashes, no lesions, and no evidence of cellulitis. MS/ Extremity: Pulses equal, no cyanosis. Neurovascular intact. Full, normal range of motion. Neuro: Awake and alert, GCS 15, oriented to person, place, time, and situation. Cranial nerves II-XII grossly intact. Motor strength 5/5 in all extremities. Sensory grossly intact. Cerebellar exam normal. Normal gait. Psych: Awake, alert, with orientation to person, place and time. Behavior, mood, and affect are within normal limits. 01:22 Abdomen/GI: Inspection: distension, that is mild, in the abdomen diffusely, Bowel sounds: active, all quadrants, Palpation: abdomen is soft and non-tender, Rectal exam: the exam is deferred, because of patient request, Indicators: McBurney's point is not tender, Mack's sign is negative, Rovsing's sign is negative, Obturator sign is negative, Psoas sign is negative, Liver: is enlarged, tenderness, is not appreciated. Vital Signs: 01:03 BP 134 / 57; Pulse 77; Resp 18; Temp 98.5; Pulse Ox 100% on R/A; Weight 57.15 kg; mg2 Height 5 ft. 2 in. (157.48 cm); 01:49 BP 120 / 56; Pulse 70; Resp 18; Pulse Ox 100% on R/A; mg2 02:40 BP 116 / 59; Pulse 75; Resp 19; Pulse Ox 99% ; rr5 03:58 BP 116 / 55; Pulse 70; Resp 18; Pulse Ox 99% on R/A; mg2 05:32 BP 115 / 60; Pulse 65; Resp 18; Pulse Ox 100% on R/A; mg2 01:03 Body Mass Index 23.05 (57.15 kg, 157.48 cm) mg2 MDM: 04:49 Differential diagnosis: pancreatitis, diverticulitis, viral gastroenteritis, mh7 gastroenteritis. Data reviewed: vital signs, nurses notes, old medical records, lab test result(s), CBC, electrolytes, urinalysis, EKG, radiologic studies, CT scan. Data interpreted: Pulse oximetry: on room air is 99 %. Interpretation: normal. Counseling: I had a detailed discussion with the patient and/or guardian regarding: the historical points, exam findings, and any diagnostic results supporting the discharge/admit diagnosis, lab results, radiology results, to return to the emergency department if symptoms worsen or persist or if there are any questions or concerns that arise at home. Response to treatment: the patient's symptoms have resolved after treatment, the patient's blood pressure is in an acceptable range, mental status has returned to baseline, the patient no longer shows bradycardia, the patient is not short of breath, the patient is not tachycardic, the patient's pain is gone, the patient's temperature has normalized. 04:53 Patient medically screened. [facility] 06:51 Refusal of service: The patient/guardian displays adequate decision making capability [facility] and despite a detailed discussion of alternatives, benefits, risks, and consequences refuses: Admission to the hospital for further work-up and treatment. 01/02 00:47 Order name: Basic Metabolic Panel; Complete Time: 04:03 [facility] 01/02 00:47 Order name: CBC with Diff; Complete Time: 02:20 [facility] 01/02 00:47 Order name: Hepatic Function; Complete Time: 04:03 [facility] 01/02 00:47 Order name: Lipase; Complete Time: 04:03 [facility] 01/02 03:18 Order name: Chest Abd Pelvis Wo Con EDMS 01/02 00:47 Order name: IV Saline Lock; Complete Time: 01:02 [facility] 01/02 00:47 Order name: Labs collected and sent; Complete Time: 01:02 [facility] 01/02 02:48 Order name: EKG - Nurse/Tech; Complete Time: 02:49 mg2 Administered Medications: 01:02 Drug: Zofran (Ondansetron) 4 mg Route: IVP; Site: right antecubital; mg2 04:30 Follow up: Response: No adverse reaction mg2 01:02 Drug: Pepcid 20 mg Route: IVP; Site: right antecubital; mg2 04:30 Follow up: Response: No adverse reaction mg2 01:02 Drug: NS 0.9% 1000 ml Route: IV; Rate: 1000 ml; Site: right antecubital; mg2 04:30 Follow up: Response: No adverse reaction; IV Status: Completed infusion; IV Intake: mg2 1000ml 05:16 Drug: KeFLEX 250 mg Route: PO; mg2 05:16 Follow up: Response: No adverse reaction; Medication administered at discharge. mg2 05:16 Drug: Flagyl 250 mg Route: PO; mg2 05:16 Follow up: Response: No adverse reaction; Medication administered at discharge. mg2 Disposition: 01/02/21 04:53 Discharged to Home. Impression: Colitis, Liver Cirrhosis, Ascites, Right Pleural Effusion-Chronic, Inguinal Hernia-Chronic. - Condition is Stable. - Discharge Instructions: Ascites, Pleural Effusion, Inguinal Hernia, Adult, [id number], Colitis. - Prescriptions for Zofran ODT 4 mg Oral tablet,disintegrating - place 1 tablet by TRANSLINGUAL route every 8 hours As needed; 6 tablet. Flagyl 250 mg Oral Tablet - take 1 tablet by ORAL route every 8 hours for 7 days; 21 tablet. Keflex 250 mg Oral Capsule - take 1 capsule by ORAL route every 8 hours for 7 days; 21 capsule. Pepcid 20 mg Oral Tablet - take 1 tablet by ORAL route every 12 hours for 5 days; 10 tablet. - Medication Reconciliation Form, Thank You Letter, Antibiotic Education, Prescription Opioid Use form. - Follow up: Private Physician; When: 1 - 2 days; Reason: Worsening of condition, Recheck today's complaints, Continuance of care, Re-evaluation by your physician. - Problem is new. - Symptoms have improved. Signatures: Dispatcher [employer] [facility] Shasha Villasenor RN RN lp1 Jayy Stanley RN RN mg2 Rhys Plata MD MD 7 Corrections: (The following items were deleted from the chart) 03:18 02:26 Abdomen Pelvis Wo Con+CT.RAD.BRZ ordered. [facility] EDAR 04:57 04:53 01/02/2021 04:53 Discharged to Home. Impression: Colitis; Liver Cirrhosis; mh7 Ascites; Right Pleural Effusion-Chronic. Condition is Stable. Forms are Medication Reconciliation Form, Thank You Letter, Antibiotic Education, Prescription Opioid Use. Follow up: Private Physician; When: 1 - 2 days; Reason: Worsening of condition, Recheck today's complaints, Continuance of care, Re-evaluation by your physician. Problem is new. Symptoms have improved. 7 05:33 04:57 01/02/2021 04:53 Discharged to Home. Impression: Colitis; Liver Cirrhosis; mg2 Ascites; Right Pleural Effusion-Chronic; Inguinal Hernia-Chronic. Condition is Stable. Forms are Medication Reconciliation Form, Thank You Letter, Antibiotic Education, Prescription Opioid Use. Follow up: Private Physician; When: 1 - 2 days; Reason: Worsening of condition, Recheck today's complaints, Continuance of care, Re-evaluation by your physician. Problem is new. Symptoms have improved. 7
[2021-01-02] MEDS ORDERED: metroNIDAZOLE 500 MG TABLET ONE (05:35)
[2021-01-02] MEDS ORDERED: CEPHALEXIN 250 MG CAP ONE (05:35)
[2021-01-02 05:46] VITALS: TEMP 98.5
[2021-01-02 05:56] VITALS: BP 115/60; O2SAT 100
--- NOTE | 2021-01-02 20:25 | RAD REPORT ---
EXAM DESCRIPTION: CT - Chest Abd Pelvis Wo Con - 01/02/2021 6:11 am CLINICAL HISTORY: NAUSEA / VOMITING COMPARISON: None Available. TECHNIQUE: CT of the chest, abdomen and pelvis performed without IV contrast. Suboptimal evaluation of the soft tissues, solid organs, and vasculature due to lack of IV contrast. FINDINGS: Chest: Thyroid: No abnormalities of the visualized thyroid. Great Vessels: Great vessels have normal anatomic configuration. Thoracic Aorta: Atherosclerotic calcification of the thoracic aorta. Heart is not enlarged. Pulmonary arteries: The main pulmonary artery is not dilated. Heart: Coronary artery atherosclerosis. No cardiomegaly. Lymph Nodes: No enlarged mediastinal lymph nodes identified. Esophagus: No abnormalities of the esophagus identified Other: No additional findings. Lungs: Compressive atelectasis of the right lung and portions of the right upper lobe. Left lung is c lear. Pleura: Large right pleural effusion. No pneumothorax. Trachea/Airways: No abnormalities of the visualized trachea or airways. Abdomen: Liver: Nodular contour of the liver. Stable hypodensity in the right hepatic lobe may represent a cys t. Gallbladder: Prior cholecystectomy. Spleen, Pancreas, and Adrenal Glands: Splenomegaly. Pancreas and adrenal glands are unremarkable. Kidneys: No hydronephrosis or obstructing ureteral calculus. Vasculature: Aortoiliac atherosclerosis. IVC is unremarkable. Stomach: Wall thickening of the stomach. Other: No free intraperitoneal air. Large volume ascites. Pelvis: Bladder: Urinary bladder is unremarkable. Bowel: Long segment wall thickening of the descending, transverse, and descending colon. No definit andre dilated loops of small bowel. Redemonstrated large right inguinal hernia containing loops of nond ilated bowel. Fluid containing ventral hernias. Appendix: Identified. Pelvis: Uterus is not enlarged. Bones: No destructive bone lesions identified. IMPRESSION: 1. Large right inguinal hernia containing nondilated bowel is relatively stable appearan ce. No definite evidence of small bowel obstruction at this time. 2. Long segment wall thickening of the colon could be seen with nonspecific colitis. This could also be seen with hypoproteinemia. 3. Wall thickening of the stomach. This could be seen with gastritis. Follow-up after acute illness t o exclude other causes of gastric wall thickening recommended. 4. Large right pleural effusion with compressive atelectasis of the right lung. 5. Coronary artery atherosclerosis. 6. Findings compatible with cirrhosis and portal hypertension with splenomegaly. 7. Large volume ascites. 8. Fluid containing ventral and left inguinal hernias. This exam was performed according to our departmental dose-optimization program, which includes autom ated exposure control, adjustment of the mA and/or kV according to patient size and/or use of iterati ve reconstruction technique. Electronically signed by: Eduardo Smith 01/02/2021 3:40 AM HAND MITER OPERATOR Due to temporary technical issues with the PACS/Fluency reporting system, reports are being signed by the in house radiologists without review as a courtesy to insure prompt reporting. The interpreting radiologist is fully responsible for the content of the report.
== END 2021-01-02 05:33 | disposition home or self-care (01) ==
LOC: ER 00:01
DX: K52.9 Noninfective gastroenteritis and colitis, unspecified (principal); K74.60 Unspecified cirrhosis of liver; R18.8 Other ascites; J90 Pleural effusion, not elsewhere classified; K40.90 Unilateral inguinal hernia, without obstruction or gangrene, not specified as recurrent; I10 Essential (primary) hypertension; E11.9 Type 2 diabetes mellitus without complications; Z79.4 Long term (current) use of insulin
CPT/HCPCS: 96361; 93005; 85025; 80048; 36415; 80076; 83690; 71250; 74176; 96375; 96374; 99284; J7030; J2405

== ENCOUNTER 2021-05-26 11:28 | Inpatient (IN) | payer OTHER ==
--- OUTSIDE RECORDS SUMMARY | 2021-05-26 11:43 | XMS REPORT | Continuity of Care Document ---
:1950 Author Organization [facility] t Address [facility] [place] [address] Care Team Providers Name Role Phone Pcp Primary Care Physician Unavailable Keena Montero MD Attending Clinician KEENA MONTERO Attending Clinician Unavailable Jeevan Tony Attending Clinician Unavailable Clemente Attending Clinician Unavailable Osmel ASTUDILLO, R Attending Clinician Unavailable Kendall Rollins Attending Clinician Unavailable Tracy Mcdonnell MD Attending Clinician Tracy MCDONNELL Attending Clinician Unavailable Adan Attending Clinician Unavailable Monica Armendariz NP Attending Clinician Brandin COHEN Attending Clinician Unavailable Mic Burgos MD Attending Clinician Adan ASTUDILLO Attending Clinician Unavailable Ashley Pino MD Attending Clinician Emmanuelle PINO Attending Clinician Unavailable Juanito ASTUDILLO Attending Clinician Unavailable Alex MILES Attending Clinician Unavailable Bradly HERNANDEZ Attending Clinician BRADLY Attending Clinician Unavailable MAGNUS BAKER Attending Clinician Unavailable BRANDIN ELIAS Attending Clinician Unavailable TYRELL PIERRE Attending Clinician Unavailable BRANDIN DUPREE Attending Clinician Unavailable CATHY Attending Clinician Unavailable HERBERT DYSON Attending Clinician Unavailable Tracy LEMUS Attending Clinician Unavailable FALGUNI GOLDEN Attending Clinician Unavailable TAL DELATORRE Attending Clinician Unavailable Gary INFANTE Attending Clinician Unavailable DUSTY WEBB Attending Clinician Unavailable Julio BURGOS Attending Clinician Unavailable OLI BRYANT Attending Clinician Unavailable KEENA MONTERO Admitting Clinician Unavailable MAGNUS BAKER Admitting Clinician Unavailable Tracy MCADAMS Admitting Clinician Unavailable SHONA AGUILAR Admitting Clinician Unavailable Tracy MCDONNELL Admitting Clinician Unavailable KODY RAI Admitting Clinician Unavailable NEW KELSEY Admitting Clinician Unavailable Gary INFANTE Admitting Clinician Unavailable Payers Payer Name Policy Type Policy Effective Date Expiration Date Sour ce Number CARE IMPROVEMENT [id number] [address] [facility] [address] [facility] MEDICARE MGD 00:00:00 - Medical CARECARE Center IMPROVEMENT [id number] UNITED RESOURCES [id number] [address] [facility] [address] [facility] NETWK - MEDICARE 00:00:00 - Medica l MGD CAREOPTUM [facility] ONLY [facility] [id number]/2018-PresentTrans plants [facility] Problems Condition Condition Condition Status Onset Resolution Last Treating Co mments Source Name Details Category Date Date Treatment Clinician Date Old age Old age Disease Active [facility] St 4-15 [facility] - 00:00: t & Plan: Medical 00 She is 70 Center and appears older than her stated age. She will be considere d a high risk candidate due to her age and complex medical history if accepted for liver transplan t. Malnourish Malnourish Disease Active Last [facility] ed ed 4-15 [facility] - 00:00: t & Plan: Medical 00 She Center appears cachetic. Her bmi is 22. She was encourage d to increase her nutrition al intake with the assistanc e of supplemen kendra bharath (glucerna since she is diabetic) . She will meet with our transplan t engagement liaison for further recommend ations. Abdominal Abdominal Disease Active [facility] pain, pain, 1-15 [facility] - unspecifie unspecifie 00:00: Me dical d d 00 Center abdominal abdominal location location Anasarca Anasarca Disease [facility] - 00:00: Medical 00 Center Acute Acute Disease Active [facility] abdominal abdominal 6-18 [facility] - pain pain 00:00: t & Plan: [...] t & Plan: Medical repair repair 00 She has Center multiple abdominal hernias + inguinal hernia. Her umbilical hernia was repaired at one point but returned. Inguinal Inguinal Disease Active [facility] hernia 4[facility]22 [facility] - 00:00: t & Plan: Medical 00 Surgery Center is not recommend ed at this time to due to risks associate d to cirrhosis . We encourage d her to use trus for support. Pre-transp Pre-transp Disease Active 2017-[address] [facility] - evaluation evaluation 00:00: t & Plan: Medical for for 00 She will Center chronic chronic be liver liver considere disease disease d a high risk candidate and will be officiall y accepted/ denied once she completes her imaging/t esting and review at [facility]. Elevated Elevated Disease Active 2017-11 [facility] random [facility] [facility] - blood blood 00:00: [facility] glucose glucose 00 Center level level Portal Portal Disease Active 2017-[address] [facility] [address] vein vein 0-25 [facility] - thrombosis thrombosis 00:00: t & Plan: Medical 00 Her Center recent MR Abdomen indicates unchanged nonocclus memo thrombus in the right portal vein and right hepatic vein. Unchanged to slightly decreased nonocclus memo thrombus in the main portal and superior mesenteri c veins. Main portal vein is prominent and measures 1.5 cm in diameter. She was instructe d to start Lovenox injection s but due to the cost has not been doing this. She will continue follow up with hepatolog y. History of History of Disease Active 2017-11 [...] Center melena melena Altered Altered Disease Active [facility] mental mental 2-10 [facility] - status status 00:00: Medical Center Seizure Seizure Disease Active [facility] 2-10 [facility] - 00:00: Medical Center Other Other Disease Active 2013-11 [facility] cirrhosis cirrhosis 2- Assessmen James carlson - of liver of liver 00:00: t & Plan: Med ical 00 Diagnosis Center based on the constella tion of clinical findings, laborator y parameter s and imaging. Etiology is most likely due to VASQUEZ. Her condition has decompens ated with features of portal hypertens ion. MELD Na is 9 based on labs from 08/19/19. Portal Portal Disease Active 2013-11 [facility] hypertensi hypertensi 2- [facility] - on on 00:00: t & Plan: Medical She has Center portal hypertens ion with evidence of ascites, esophagea l varices, encephalo felipa, and hypersple nism. Esophageal Esophageal Disease Active 2013-[address] [facility] [address] varices varices 12-[facility] t & Plan: Medical Because Center of the risk for upper [...] hemorrhag e. Screening Screening Disease Active 2013-11 [facility] for cancer for cancer 2 [facility] - [facility] t & Plan: Medical Patients Center with cirrhosis , regardles s of etiology, have a markedly increased risk of developin g hepatocel lular carcinoma (HCC). We recommend HCC surveilla nce every 6 months by imaging and evaluatio n of serum AFP. -Will get MRI in future after reviewing US Diabetes Diabetes Disease Active 2013-11 [facility] - 00[facility]: t & Plan: Medical Diabetes Center control per primary care. Metabolic Metabolic Disease Active 2013-11 [facility] syndrome syndrome - [facility] - 00:00: t & Plan: Medical 00 [...] tolerated . Abnormal Abnormal Disease Active 2013-11 [facility] liver liver - [facility] - enzymes enzymes 00:00: t & Plan: Medic al 00 The Center patient's liver test abnormali ties are likely related to NAFLD/ALESSANDRO H. However, we also ordered comprehen sive testing for metabolic , viral, genetic, and autoimmun e liver diseases to detect alternati ve etiologie s and all comorbid condition s affecting hepatic function. Ascites Ascites Disease Active 2013-11 [facility] 12-20 [facility] - 00:00: t & Plan: Medical 00 First Center developed 07/2014, requiring no paracente sis. Exam today revealed no ascites. Currently taking lasix 20 mg and spironola ctone 100 mg for diuresis. Recommen d the patient follow a diet of less than 2,000mg sodium daily. Non-alcoho Non-alcoho Disease Active 2013-[address] [facility] [address] lic fatty lic fatty 12-20 [facility] - liver liver 00:00: t & [...] Date Stop Date Source Natural brother Diabetes [facility] Natural mother Diabetes [facility] Natural mother Hypertension [facility] Natural sister Diabetes [facility] Natural sister Thyroid disease [facility] Social History Social Habit Start Date Stop Date Quantity Comments Source Sex Assigned At [facility] Tobacco use and 2021-04-26 2021-04-[address] [facility] - exposure 00:00:00 00:00:00 Medical Center Alcohol intake 2021-04-26 2021-04-[address] [facility] - 00:00:00 00:00:00 non-drinker of Medical Ce nter alcohol (finding) Smoking Status Start Date Stop Date Source [facility] Medications Ordered Filled Start Stop Current Ordering Indication Dosage Frequency Signature Comments Components Source Medication Medication Date Date Medication? Clinician (SIG) Name Name traMADol Yes 50mg Take [address] (ULTRAM) 50 6-15 by mouth Luke s - mg tablet 10:22: every 8 Medic al 59 (eight) Center hours as needed for Pain . metoprolol Yes 50mg QD Take [address] (TOPROL-XL) 6-15 by mouth Luke s - 50 MG 24 hr 10:22: daily. Medi anuja tablet 59 Center insulin NPH Yes 40U QD [address] hum/reg 6-15 daily . [facility] - insulin hm 10:22: Medical (HUMULIN 59 Center 70/30 U-100 INSULIN SUBQ) traZODone Yes 50mg Take [address] (DESYREL) 6-15 by mouth [facility] - 50 MG 10:22: every Medical tablet 59 night as Center needed for Sleep. ondansetron Yes 4mg Take [address] (ZOFRAN) 4 6-15 by mouth 3 [facility] - MG tablet 10:22: (three) Medic al 59 times Center daily as needed for Nausea. ergocalcife Yes Osteoporosi Take one [facility] rol 6-15 s without capsule by Luke s - (Vitamin 00:00: current mouth one M edical D2) 1,250 00 pathologica time per Center mcg (50,000 l fracture, week for 8 unit) unspecified (eight) capsule osteoporosi weeks.. s type insulin Yes QD daily. [facility] syringe-nee 9-11 [facility] - dle U-100 1 00:00: Medica l mL 31 gauge 00 Center x 5/[address] Sy[address] Yes [facility] Ultra Blue [...] 00 (HCC) by mouth Center tablet daily. lidocaine-m Yes 1{patch QD Apply [address] enthol 4-1 18 } patch [facility]ukes - % PtMd 00:00: topically Medica l 00 daily. [place] ferrous 2020- No 325mg Take [address] sulfate 325 11-28 tablet [facility] - (65 FE) MG 00:00: [...] . Cente r 75 MCG tablet rifAXIMin Yes 550mg Q.5D Take 1 [facility] 550 mg Tab 7-03 tablet [facility] - 00:00: (550 mg Medical 00 total) by Center mouth 2 (two) times daily. Immunizations Ordered Immunization Filled Immunization Date Status Commen ts Source Name Name INFLUENZA TRIVALENT 2019-11-27 Completed [facility] - ADJUV[facility] PF IM 00:00:00 [facility] Vital Signs Vital Name Observation Time Observation Value Comments Source Systolic blood 2021-05-12 13:55:00 140 mm[Hg] [facility] Diastolic blood 2021-05-12 13:55:00 69 mm[Hg] [facility] Heart rate 2021-05-12 13:55:00 77 /min [facility] Body temperature 2021-05-12 13:55:00 36.67 Pennie [facility] Respiratory rate 2021-05-12 13:55:00 17 /min [facility] O[facility] saturation in 2021-05-12 13:55:00 97 /min [facility] Arterial blood by Medical Ce nter Pulse oximetry Body weight 2021-05-12 11:55:00 65.772 kg [facility] BMI 2021-05-12 11:55:00 26.52 kg/m2 [facility] Body height 2021-04-26 10:02:00 157.5 cm [facility] Procedures Procedure Date / Time Performed Performing Clinician [facility] e US PARACENTESIS 2021-05-12 13:50:00 Yue Montero [facility] BODY FLUID CELL COUNT 2021-05-12 13:14:[address] [facility] WITH DIFFERENTIAL [facility] VITAMIN D, 25-HYDROXY 2021-04-26 11:36:00 Kenneth Mcdonnell [facility] BILIRUBIN, DIRECT 2021-04-26 11:36:00 Kenneth Mcdonnell [facility] CBC W/PLT COUNT & AUTO 2021-04-26 11:36:[address] [facility] COMPREHENSIVE METABOLIC 2021-04-26 11:36:00 Kenneth Mcdonnell [facility] PROTHROMBIN TIME/INR 2021-04-26 11:36:00 Kenneth Mcdonnell [facility] US PARACENTESIS 2021-04-18 09:46:00 Yue Montero [facility] BODY FLUID CELL COUNT 2021-04-18 08:58:00 Yue Montero [facility] DIFFERENTIAL [facility] PROTHROMBIN TIME/INR 2021-04-18 07:03:00 Shasha Hall [facility] APTT 2021-04-18 07:03:[address] [facility] CBC W/PLT COUNT & AUTO 2021-04-18 07:03:00 Shasha Hall [facility] DIFFERENTIAL [facility] MR ABDOMEN WITH & WITHOUT 2021-03-22 12:47:00 Yue Montero [facility] IV CONTRAST [facility] BODY FLUID CELL COUNT 2021-03-22 10:24:[address] [facility] - WITH DIFFERENTIAL [facility] US PARACENTESIS 2021-03-22 10:15:00 Yue Montero [facility] BODY FLUID CELL COUNT 2021-02-23 12:23:[address] [facility] - WITH DIFFERENTIAL [facility] US PARACENTESIS 2021-02-23 12:05:00 Yue Montero [facility] VENOUS DOPPLER LEGS 2021-02-22 11:47:00 Yue Montero [facility] BILATERAL [facility] ALPHA FETOPROTEIN (AFP), 2021-02-22 10:49:00 Yue Montero [facility] TUMOR MARKER [facility] BILIRUBIN, DIRECT 2021-02-22 10:49:00 Yue Montero [facility] CBC W/PLT COUNT & AUTO 2021-02-22 10:49:00 Yue Montero [facility] DIFFERENTIAL [facility] COMPREHENSIVE METABOLIC 2021-02-22 10:49:00 Yue Montero [facility] PROTHROMBIN TIME/INR 2021-02-22 10:49:00 Yue Montero [facility] BODY FLUID CELL COUNT 2021-01-11 10:14:[address] [facility] - WITH DIFFERENTIAL [facility] US PARACENTESIS 2021-01-11 10:12:00 Yue Montero [facility] MR ABDOMEN WITH & WITHOUT 2020-12-16 12:12:00 Russ Burgos [facility] IV CONTRAST [facility] BODY FLUID CELL COUNT 2020-12-16 09:50:[address] [facility] - WITH DIFFERENTIAL [facility] ALPHA FETOPROTEIN (AFP), 2020-12-16 06:47:00 Yue Montero [facility] TUMOR MARKER [facility] BILIRUBIN, DIRECT 2020-12-16 06:47:00 Yue Montero [facility] CBC W/PLT COUNT & AUTO 2020-12-16 06:47:00 Yue Montero [facility] DIFFERENTIAL [facility] COMPREHENSIVE METABOLIC 2020-12-16 06:47:00 Yue Montero [facility] PROTHROMBIN TIME/INR 2020-12-16 06:47:00 Yue Montero [facility] XR CHEST 1 VIEW 2020-11-11 17:39:00 Shasha Hall [facility] - PORTABLE/BEDSIDE [facility] XR CHEST 1 VIEW 2020-11-11 16:55:00 Shasha Hall [facility] - PORTABLE/BEDSIDE [facility] BODY FLUID CELL COUNT 2020-11-11 16:45:00 [facility] WITH DIFFERENTIAL [facility] THORACENTESIS 2020-11-11 16:40:00 [facility] PARACENTESIS 2020-10-26 16:30:00 Yue Montero [facility] BODY FLUID CELL COUNT 2020-10-26 16:20:[address] [facility] WITH DIFFERENTIAL [facility] CBC W/PLT COUNT & AUTO 2020-10-26 14:01:00 Cindy Payton [facility] PROTHROMBIN TIME/INR 2020-10-26 14:01:00 Cindy Payton [facility] APTT 2020-10-26 14:01:00 Cindy Payton [facility] PROTHROMBIN TIME/INR 2020-09-21 10:27:00 Yue Montero [facility] COMPREHENSIVE METABOLIC 2020-09-21 10:27:00 Yue Montero [facility] CBC W/PLT COUNT & AUTO 2020-09-21 10:27:00 Yue Montero [facility] DIFFERENTIAL [facility] BILIRUBIN, DIRECT 2020-09-21 10:27:00 Yue Montero [facility] ALPHA FETOPROTEIN (AFP), 2020-09-21 10:27:00 Yue Montero [facility] TUMOR MARKER [facility] PLATELET ESTIMATION 2020-09-21 10:27:00 Yue Montero [facility] XR CHEST 1 VIEW 2020-08-31 11:21:00 Shasha Hall [facility] - PORTABLE/BEDSIDE [facility] US THORACENTESIS 2020-08-31 11:20:00 Yue Montero [facility] US PARACENTESIS 2020-08-31 11:20:00 Yue Montero [facility] BODY FLUID CELL COUNT 2020-08-31 11:10:[address] [facility] - WITH DIFFERENTIAL [facility] BODY FLUID CELL COUNT 2020-08-31 10:22:00 Yue Montero [facility] - WITH DIFFERENTIAL [facility] MR ABDOMEN WITH & WITHOUT 2020-08-24 11:50:00 Yue Montero [facility] IV CONTRAST [facility] ALPHA FETOPROTEIN (AFP), 2020-08-24 09:54:00 Yue Montero [facility] TUMOR MARKER [facility] BILIRUBIN, DIRECT 2020-08-24 09:54:00 Yue Montero [facility] CBC W/PLT COUNT & AUTO 2020-08-24 09:54:00 Yue Montero [facility] COMPREHENSIVE METABOLIC 2020-08-24 09:54:00 Yue Montero [facility] PROTHROMBIN TIME/INR 2020-08-24 09:54:00 Yue Montero [facility] BODY FLUID CELL COUNT 2020-08-23 09:54:[address] [facility] - WITH DIFFERENTIAL [facility] US PARACENTESIS 2020-08-23 09:50:00 Yue Montero [facility] CBC W/PLT COUNT & AUTO 2020-08-23 08:05:00 Yue Montero [facility] DIFFERENTIAL [facility] PROTHROMBIN TIME/INR 2020-08-23 08:04:00 Yue Montero [facility] BODY FLUID CELL COUNT 2020-07-07 09:49:[address] [facility] - WITH DIFFERENTIAL [facility] US PARACENTESIS 2020-07-07 09:38:00 Yue Montero [facility] PROTHROMBIN TIME/INR 2020-07-01 10:30:00 Yue Montero [facility] COMPREHENSIVE METABOLIC 2020-07-01 10:30:00 Yue Montero [facility] CBC W/PLT COUNT & AUTO 2020-07-01 10:30:00 Yue Montero [facility] BILIRUBIN, DIRECT 2020-07-01 10:30:00 Yue Montero [facility] ALPHA FETOPROTEIN (AFP), 2020-07-01 10:30:00 Yue Montero [facility] TUMOR MARKER [facility] Plan of Care Planned Activity Planned Date Details Comments Source Future Scheduled 2021-07-13 INFLUENZA VACCINE (#1) [facility] Test 00:00:00 [code = INFLUENZA Medical Ce nter VACCINE (#1)] Future Scheduled 2020-11-[address] [facility] - Test 00:00:00 (12+) [code = Medical Center DEPRESSION SCREENING (12+)] Future Scheduled 2020-10-[address] [facility] [facility] - Test 00:00:00 malignant neoplasm of Medica [facility] breast (procedure) [code = 769984715] Future Scheduled 2020-05-[address] [facility] - Test 00:00:00 [facility] (procedure) [code = 25855424] Future Scheduled 2017-11-[address] [facility] [facility] - Test 00:00:00 WELLNESS (YEAR 2 or Medical Center FIRST YEAR if no IPPE) [code = MEDICARE ANNUAL WELLNESS (YEAR 2 or FIRST YEAR if no IPPE)] Future Scheduled 2013 PNEUMOCOCCAL 65+ YRS [facility] - Test 00:00:00 (1 of 1 - Medical Center [id number]) [code = PNEUMOCOCCAL 65+ YRS (1 of 1 - [id number])] Future Scheduled 1998 SHINGLES VACCINES ([address] [facility] - Test 00:00:00 of 2) [code = SHINGLES Medic al Center VACCINES (1 of 2)] Future Scheduled 1967 DTAP/TDAP/TD VACCINES [facility] - Test 00:00:00 (1 - Tdap) [code = Medical C enter DTAP/TDAP/TD VACCINES (1 - Tdap)] Future Scheduled 1960 COVID-19 VACCINE (1) [facility] - Test 00:00:00 [code = COVID-[address] VACCINE (1)] Future Scheduled [address] DIABETIC EYE EXAM [facility] - Test 00:00:00 [code = DIABETIC EYE Medical Center EXAM] Future Scheduled [address] - Test 00:00:00 examination Medical Center (regime/therapy) [code = 777892940] Future Scheduled 1958 Urine screening for [facility] - Test 00:00:00 protein (procedure) Medical Center [code = 702815689] Future Scheduled [address] [facility] - Test 00:00:00 [facility] colon (procedure) [code = 004761977] Results Test Description Test Test Comments Results Result Sour e Time Comments U/S, 2021-05- Referring: PARACENTESIS 02 Mohsen 11:43:00 SweattAdminister 200 mL of albumin 25% [facility] (50 grams) IV x1 - MEDICAL after paracentesis CENTERName: [facility], if 3 or more liters SAMIR REIS removed.Send ascitic : 1950 fluid for cell count Sex: and F differential.Labs to be ordered:->Cell CountReason for FINAL Exam:->ascites REPORT Ultrasound guided paracentesis Clinical History: Ascites. Sedation: None. Manufacturing Engineer Automotive: Shasha Hall PA-C Supervising Physician: Juan Fihsman MD Network Field Engineer: None. Estimated Blood Loss: < 1 mL. Specimen: 6300 mL of clear yellow fluid, samples sent [...] anesthesia was achieved with lidocaine, a 5 Norwegian one-step catheter was advanced into the peritoneal cavity under ultrasound guidance. After completion of drainage, the catheter was removed. There was no evidence of complication. Impression:Success ful ultrasound guided paracentesis. Signed: Juan Fishman MDReport Verified Date/Time: 05/13/2021 11:43:56 Reading Location: [address] Ultrasound Reading Room Ultrasound 2021-05- Interface, [facility] St PARACENTESIS 02 External Ris In - [facility] - 11:43:00 05/13/2021 11:46 Medical AM CDTFINAL REPORT Center Ultrasound guided paracentesis Clinical History: Ascites. Sedation: None. Manufacturing Engineer Automotive: Shasha Hall PA-C Supervising Physician: Juan Fishman MD Network Field Engineer: None. Estimated Blood Loss: < 1 mL. Specimen: 6300 mL of clear yellow fluid, samples sent [...] anesthesia was achieved with lidocaine, a 5 Norwegian one-step catheter was advanced into the peritoneal cavity under ultrasound guidance. After completion of drainage, the catheter was removed. There was no evidence of complication. Impression:Success ful ultrasound guided paracentesis. Signed: Juan Fishman MDReport Verified Date/Time: 05/13/2021 11:43:56 Reading Location: [address] Ultrasound Reading Room Body fluid cell count with differential 2021-05-12 16:32:00 Test Item Value Reference Range Interpretation Comme nts Appearance (test code = Clear Clear 9335-1) Color (test code = Straw Colorless, 6824-7) Straw RBCs (test code = 19 See_Comment H [Automate d message] 83936-8) The system [employer] generated this result transmitted ref erence range: <=1 /cu mm. The reference r yue was not used to interpret this result as normal/abnor mal. Adjusted WBC Count (test 15 See_Comment H [A utomated message] code = 94817-4) The system [employer] generated this result transmitted ref erence range: <=5 /cu mm. The reference r yue was not used to interpret this result as normal/abnor mal. Lining Cells (test code 0 See_Comment [Au tomated message] = 32515-4) The system [employer] generated this result transmitted ref erence range: <=1 /cu mm. The reference r yue was not used to interpret this result as normal/abnor mal. % Segs (test code = 58 % 29791-8) % Lymphs (test code = 15 % 08778-3) % Monos (test code = 27 % 69114-6) % Eos (test code = 0 % 26910-7) % Baso (test code = 0 % 93375-8) Container Body Fluid Sterile Vial (test code = 2873) FAUSTO (test code = FAUSTO) Intracellular bacteria (cocci in chains) seen on stained smear. Lab Interpretation (test Abnormal code = 56890-2) [facility] CELL COUNT WITH [id number] 16:32:00 Test Item Value Reference Range Interpretation Comments APPEARANCE FLUID Clear Clear (BEAKER) (test code = 510) COLOR FLUID (BEAKER) Straw Colorless, Straw (test code = 511) RBC FLUID (BEAKER) 19 /cu mm See_Comment H [Automat ed message] (test code = 513) The system which generated this result transmit kianna reference range : <=1. The refere nce range was not u sed to interpret th is result as normal/abnormal . ADJUSTED WBC FLUID 15 /cu mm See_Comment H [Automat ed message] (BEAKER) (test code The syst em which = 1691) generated this result transmit kianna reference range : <=5. The refere nce range was not u sed to interpret th is result as normal/abnormal . LINING CELLS 0 /cu mm See_Comment [Automated mes [place]] (BEAKER) (test code The syst em which = 1590) generated this result transmit kianna reference range : <=1. The refere nce range was not u sed to interpret th is result as normal/abnormal . NEUTROPHILS FLUID 58 % (BEAKER) (test code = 1656) LYMPHS FLUID 15 % (BEAKER) (test code = 488) MONO/MACROPHAGE 27 % FLUID (BEAKER) (test code = 489) EOSINOPHILS FLUID 0 % (BEAKER) (test code = 491) BASO FLUID (BEAKER) 0 % (test code = 492) CONTAINER BODY FLUID Sterile Vial (BEAKER) (test code = 2873) Intracellular bacteria (cocci in chains) seen on stained smear.Vitamin D, 68-[id number] 13:08:00 Test Item Value Reference Range Interpretation Comments Vitamin D 25-Hydroxy 26.1 ng/mL 6.6-49.9 (test code = 2764) FAUSTO (test code = FAUSTO) Effective 08/22/2017: Reference Range ChangeNew: 6.6-49.9 ng/mL Previous: 13.0-47.8 ng/mL Recommended Vitamin D Target Range: 30.0-40.0 ng/mLOperator ID - ADRIA M Lab Interpretation (test Normal code = 78061-8) [facility]ITAMIN D, [id number] 13:08:00 Test Item Value Reference Range Interpretation Comments VITAMIN D 25-OH (BEAKER) (test 26.1 ng/mL 6.6-49.9 code = 2764) Effective 08/22/2017: Reference Range ChangeNew: 6.6-49.9 ng/mL Previous: 13.0-47.8 ng/mLRecommended Vitamin D Target Range: 30.0-40.0 ng/mLOperator ID - ADRIA MComprehensive metabolic [id number] 12:43:00 Test Item Value Reference Range Interpretation Comments Protein, Total (test 8.3 See_Comment [Autom ated code = 2885-2) message] The system which generated this result transmit kianna reference range : 6.0 - 8.3 gm/dL . The reference range was not u sed to interpret th is result as normal/abnormal . Albumin (test code = 3.4 g/dL 3.5-5 L 85465-1) Alkaline Phosphatase 88 U/L 40-150 (test code = 6768-6) Total Bilirubin (test 1.1 mg/dL 0.2-1.2 code = 1975-2) Sodium (test code = 136 meq/L 247-393 9719-2) Potassium (test code 3.9 meq/L 3.5-5.1 = 2823-3) Chloride (test code = 102 meq/L 98-107 2075-0) CO2 (test code = 29 meq/L 22-29 8-9) BUN (test code = 28 mg/dL 7-21 H 3094-0) Creatinine (test code 1.59 mg/dL 0.57-1.25 H = 2160-0) Glucose (test code = 207 mg/dL 70-105 H 2345-7) Calcium (test code = 9.1 mg/dL 8.4-10.2 24391-4) AST (test code = 23 U/L 5-34 1920-8) ALT (test code = 13 U/L 6-55 1742-6) EGFR (test code = 32 mL/min/1.73 [place] [address]-9) NOT ACCURATE CREATININE CLEARANCE IN PREDICTING GLOMERULAR FILTRATION RATE . ESTIMATED GFR I S NOT APPLICABLE FOR DIALYSIS PATIEN TS. FAUSTO (test code = FAUSTO) General Technician ID - ADRIA M Lab Interpretation Abnormal (test code = 86178-3) [facility] ValleyBilirubin, [id number] 12:43:00 Test Item Value Reference Range Interpretation Comments Bilirubin, Direct (test 0.5 mg/dL 0.1-0.5 code = 1968-) FAUSTO (test code = FAUSTO) General Technician ID - ADRIA M Lab Interpretation (test Normal code = 81198-2) [facility] ValleyCOMPREHENSIVE METABOLIC [id number] 12:43:00 Test Item Value Reference Range Interpretation Comments TOTAL PROTEIN 8.3 gm/dL 6.0-8.3 (BEAKER) (test code = 770) ALBUMIN (BEAKER) 3.4 g/dL 3.5-5.0 L (test code = 1145) ALKALINE PHOSPHATASE 88 U/L 40-150 (BEAKER) (test code = 346) BILIRUBIN TOTAL 1.1 mg/dL 0.2-1.2 (BEAKER) (test code = 377) SODIUM (BEAKER) (test 136 meq/L 136-145 code = 381) POTASSIUM (BEAKER) 3.9 meq/L 3.5-5.1 (test code = 379) CHLORIDE (BEAKER) 102 meq/L 98-107 (test code = 382) CO2 (BEAKER) (test 29 meq/L 22-29 code = 355) BLOOD UREA NITROGEN 28 mg/dL 7-21 H (BEAKER) (test code = 354) CREATININE (BEAKER) 1.59 mg/dL 0.57-1.25 H (test code = 358) GLUCOSE RANDOM 207 mg/dL 70-105 H (BEAKER) (test code = 652) CALCIUM (BEAKER) 9.1 mg/dL 8.4-10.2 (test code = 697) AST (SGOT) (BEAKER) 23 U/L 5-34 (test code = 353) ALT (SGPT) (OSVALDOAKER) 13 U/L 6-55 (test code = 347) EGFR (BEAKER) (test 32 mL/min/1.73 ESTIMA KIANNA GFR IS code = 1092) sq m NOT ACCURATE CREATININE CLEARANCE IN PREDICTING GLOMERULAR FILTRATION RATE . ESTIMATED GFR I S NOT APPLICABLE FOR DIALYSIS PATIEN TS. General Technician ID - ADRIA MBILIRUBIN, [id number] 12:43:00 Test Item Value Reference Range Interpretation Comments BILIRUBIN DIRECT (MALU) (test 0.5 mg/dL 0.1-0.5 code = 706) General Technician ID - ADRIA MCBC with platelet count + automated [id number] 12:34:00 Test Item Value Reference Range Interpretation Comments WBC (test code = 6690-2) 2.9 See_Comment L [A utomated message] The system [employer] generated this result transmitted ref erence range: 3.5 - 10 .5 K/L. The refe rence range was not u sed to interpret this result as normal/abnor mal. RBC (test code = 789-8) 2.75 See_Comment L [Au tomated message] The system [employer] generated this result transmitted ref erence range: 3.93 - 5 .22 M/L. The refe rence range was not u sed to interpret this result as normal/abnor mal. MCHC (test code = 786-4) 30.3 See_Comment L [A utomated message] The system [employer] generated this result transmitted ref erence range: 32.2 - 3 5.5 GM/DL. The refe rence range was not u sed to interpret this result as normal/abnor mal. Hematocrit (test code = 23.4 % 34.1-44.9 L 4544-3) MCV (test code = 787-2) 85.1 fL 79.4-94.8 MCH (test code = 785-6) 25.8 pg 25.6-32.2 RDW (test code = 788-0) 16.0 % 11.7-14.4 H Platelets (test code = 73 See_Comment L [Aut omated message] 807-3) The system [employer] generated this result transmitted ref erence range: 150 - 45 0 K/CU MM. The referen ce range was not u sed to interpret this result as normal/abnor mal. MPV (test code = 10.8 fL 9.4-12.3 81666-7) nRBC (test code = 413) 0 See_Comment [Aut omated message] The system [employer] generated this result transmitted ref erence range: 0 - 0 /1 00 WBC. The refere nce range was not u sed to interpret this result as normal/abnor mal. % Neutros (test code = 83 % 429) % Lymphs (test code = 8 % 430) % Monos (test code = 8 % 431) % Eos (test code = 432) 1 % % Baso (test code = 437) 0 % # Neutros (test code = 2.37 See_Comment [Aut omated message] 670) The system [employer] generated this result transmitted ref erence range: 1.56 - 6 .13 K/L. The refe rence range was not u sed to interpret this result as normal/abnor mal. # Lymphs (test code = 0.23 See_Comment L [Auto mated message] 414) The system [employer] generated this result transmitted ref erence range: 1.18 - 3 .74 K/L. The refe rence range was not u sed to interpret this result as normal/abnor mal. # Monos (test code = 0.22 See_Comment L [Autom ated message] 415) The system [employer] generated this result transmitted ref erence range: 0.24 - 0 .36 K/L. The refe rence range was not u sed to interpret this result as normal/abnor mal. # Eos (test code = 416) 0.02 See_Comment L [Au tomated message] The system [employer] generated this result transmitted ref erence range: 0.04 - 0 .36 K/L. The refe rence range was not u sed to interpret this result as normal/abnor mal. # Baso (test code = 417) 0.01 See_Comment [A utomated message] The system [employer] generated this result transmitted ref erence range: 0.01 - 0 .08 K/L. The refe rence range was not u sed to interpret this result as normal/abnor mal. Immature 0 % 0-1 Granulocytes-Relative (test code = 2801) Lab Interpretation (test Abnormal code = 43297-0) [facility] W/PLT COUNT & AUTO [id number] 12:34:00 Test Item Value Reference Range Interpretation Comments WHITE BLOOD CELL COUNT (BEAKER) 2.9 K/ L 3.5-10.5 L (test code = 775) RED BLOOD CELL COUNT (BEAKER) 2.75 M/ L 3.93-5.22 L (test code = 761) HEMOGLOBIN (BEAKER) (test code = 7.1 GM/DL 11.2-15.7 L 410) HEMATOCRIT (BEAKER) (test code = 23.4 % 34.1-44.9 L 411) MEAN CORPUSCULAR VOLUME (BEAKER) 85.1 fL 79.4-94.8 (test code = 753) MEAN CORPUSCULAR HEMOGLOBIN 25.8 pg 25.6-32.2 (BEAKER) (test code = 751) MEAN CORPUSCULAR HEMOGLOBIN CONC 30.3 GM/DL 32.2-35.5 L (BEAKER) (test code = 752) RED CELL DISTRIBUTION WIDTH 16.0 % 11.7-14.4 H (BEAKER) (test code = 412) PLATELET COUNT (BEAKER) (test code 73 K/CU MM 150-450 L = 756) MEAN [...] (test code = 437) NEUTROPHILS ABSOLUTE COUNT 2.37 K/ L 1.56-6.13 (BEAKER) (test code = 670) LYMPHOCYTES ABSOLUTE COUNT 0.23 K/ L 1.18-3.74 L (BEAKER) (test code = 414) MONOCYTES ABSOLUTE COUNT (BEAKER) 0.22 K/ L 0.24-0.36 L (test code = 415) EOSINOPHILS ABSOLUTE COUNT 0.02 K/ L 0.04-0.36 L (BEAKER) (test code = 416) BASOPHILS ABSOLUTE COUNT (BEAKER) 0.01 K/ L 0.01-0.08 (test code = 417) IMMATURE GRANULOCYTES-RELATIVE 0 % 0-1 PERCENT (BEAKER) (test code = 2801) Prothrombin time/[id number] 12:26:00 Test Item Value Reference Interpretation Comments Range Protime (test code = 17.3 See_Comment H [Autom ated 5902-2) message] The system which generated this result transmitted reference range : 11.9 - 14.2 seconds. The reference range was not used to interpret this result as normal/abnormal . INR (test code = 1.44 See_Comment [Automated 6301-6) message] The system which generated this result transmitted reference range : <=5.90. The reference range was not used to interpret this result as normal/abnormal . FAUSTO (test code = RECOMMENDED FAUSTO) COUMADIN/WARFARIN INR THERAPY RANGESSTANDARD DOSE: 2.0 - 3.0 Includes: PROPHYLAXIS for venous thrombosis, systemic embolization; TREATMENT for venous thrombosis and/or pulmonary embolus.HIGH RISK: Target INR is 2.5-3.5 for patients with mechanical heart valves. Lab Interpretation Abnormal (test code = 03945-8) [facility] ValleyPROTHROMBIN TIME/[id number] 12:26:00 Test Item Value Reference Range Interpretation Comments PROTIME (BEAKER) 17.3 seconds 11.9-14.2 H (test code = 759) INR (BEAKER) (test 1.44 See_Comment [Automat ed message] code = 370) The system whic h generated this result transmitted ref erence range: <=5.90. The reference range was not used to int erpret this result as normal/abnormal . RECOMMENDED COUMADIN/WARFARIN INR THERAPY RANGESSTANDARD DOSE: 2.0 - 3.0 Includes: PROPHYLAXIS forvenous thrombosis, systemic embolization; TREATMENT for venous thrombosis and/or pulmonary embolus.HIGH RISK: Target INR is 2.5-3.5 for patients with mechanical heart valves.U/S, [id number] 18:11:00 Referring: Dr. Mohsen Rosas 200 mL of albumin 25% (50 grams) IV x1 after paracentesis if3 or more liters removed.Send ascitic fluid for cell count and differential.Labs to be ordered:->Cell CountReason for Exam:->ascites [facility] : 1950 Sex: FFINAL REPORT Ultrasound guided paracentesis. Clinical History: Ascit es. Sedation: None. Manufacturing Engineer Automotive: Cindy Payton PA-C Network Field Engineer: None. Estimated Blood Loss: < 1 cc. Specimen: 5800 cc of clear yellow fluid, samples sent [...] fluid pocket area was marked, and the anteriorabdominal wall was evaluated with color Doppler to exclude presence of blood vessels traversing the area, the skin was prepped and draped in the usual sterile manner. After local anesthesia was achieved with 2% lidocaine, a 5 Norwegian one-step catheter was advanced into the peritoneal cavity under ultrasound guidance. After completion of drainage, the catheter was removed. There was no evidence of comp lication. Impression:Successful ultrasound guided paracentesis. Signed: Juan Fishman MDReport Verified Date/Time: 04/18/2021 18:11:59 Reading Location: [address] Ultrasound Reading Room BODY FLUID CELL COUNT WITH [id number] 13:55:00 Test Item Value Reference Range Interpretation Comments APPEARANCE FLUID Clear Clear (BEAKER) (test code = 510) COLOR FLUID (BEAKER) Straw Colorless, Straw (test code = 511) RBC FLUID (BEAKER) 32 /cu mm See_Comment H [Automat ed message] (test code = 513) The system which generated this result transmit kianna reference range : <=1. The refere nce range was not u sed to interpret th is result as normal/abnormal . ADJUSTED WBC FLUID 18 /cu mm See_Comment H [Automat ed message] (BEAKER) (test code The syst em which = 1691) generated this result transmit kianna reference range : <=5. The refere nce range was not u sed to interpret th is result as normal/abnormal . LINING CELLS 0 /cu mm See_Comment [Automated mes [place]] (BEAKER) (test code The syst em which = 1590) generated this result transmit kianna reference range : <=1. The refere nce range was not u sed to interpret th is result as normal/abnormal . NEUTROPHILS FLUID 19 % (BEAKER) (test code = 1656) LYMPHS FLUID 15 % (BEAKER) (test code = 488) MONO/MACROPHAGE 66 % FLUID (BEAKER) (test code = 489) EOSINOPHILS FLUID 0 % (BEAKER) (test code = 491) BASO FLUID (BEAKER) 0 % (test code = 492) CONTAINER BODY FLUID Sterile Vial (BEAKER) (test code = 2873) CBC W/PLT COUNT & AUTO [id number] 07:40:00 Test Item Value Reference Range Interpretation Comments WHITE BLOOD CELL COUNT (BEAKER) 3.6 K/ L 3.5-10.5 (test code = 775) RED BLOOD CELL COUNT (BEAKER) 2.74 M/ L 3.93-5.22 L (test code = 761) HEMOGLOBIN (BEAKER) (test code = 7.1 GM/DL 11.2-15.7 L 410) HEMATOCRIT (BEAKER) (test code = 23.3 % 34.1-44.9 L 411) MEAN CORPUSCULAR VOLUME [...] code = 756) MEAN PLATELET VOLUME (BEAKER) 9.5 [...] (test code = 437) NEUTROPHILS ABSOLUTE COUNT 2.91 K/ L 1.56-6.13 (BEAKER) (test code = [...] 0-1 PERCENT (BEAKER) (test code = 2801) [id number] 07:22:00 Test Item Value Reference Range Interpretation Comments PTT (test code = 00531-9) 34.7 See_Comment [ Automated message] The system [employer] generated this result transmitted ref erence range: 22.5 - 3 6.0 seconds. The re ference range was not u sed to interpret this result as normal/abnor mal. Lab Interpretation (test Normal code = 29437-9) [facility] [id number] 07:22:00 Test Item Value Reference Range Interpretation Comments PARTIAL THROMBOPLASTIN TIME 34.7 seconds 22.5-36.0 (BEAKER) (test code = 760) PROTHROMBIN TIME/[id number] 07:21:00 Test Item Value Reference Range Interpretation Comments PROTIME (BEAKER) 16.0 seconds 11.9-14.2 H (test code = 759) INR (BEAKER) (test 1.32 See_Comment [Automat ed message] code = 370) The system [employer] generated this result transmitted ref erence range: <=5.90. The reference range was not used to int erpret this result as normal/abnormal . RECOMMENDED COUMADIN/WARFARIN INR THERAPY RANGESSTANDARD DOSE: 2.0 - 3.0 Includes: PROPHYLAXIS forvenous thrombosis, systemic embolization; TREATMENT for venous thrombosis and/or pulmonary embolus.HIGH RISK: Target INR is 2.5-3.5 for patients with mechanical heart valves.U/S, [id number] 19:22:00 Referring: Dr. Mohsen Josephinister 200 mL of albumin 25% (50 grams) IV x1 after paracentesis if3 or more liters removed.Send ascitic fluid for cell count and differential.Labs to be ordered:->Other (please add comment)Reason for Exam:->ascites, on liver transplant list [facility] : 1950 Sex: FFINAL REPORT Ultrasound guided paracentesis Clinical History: Ascite s. Sedation: None. Manufacturing Engineer Automotive: Shasha Hall PA-C Supervising Physician: Marnie Aguilar MD Network Field Engineer: None. Estimated Blood Loss: < 1 mL. Specimen: 3400 mL of clear yellow fluid, samples sent [...] anesthesia was achieved with lidocaine, a 5 Norwegian one-step catheter was advanced into the peritoneal cavity under ultrasound guidance. After completion of drainage, the catheter was removed. There was no evidence of complication. Impression:Successful ultrasound guided paracentesis.Signed: Marnie Aguilar Verified Date/Time: 03/22/2021 19:22:50 Reading Location: [address] Ultrasound Reading Room MR, ABDOMEN, [id number] 19:19:00Referring: Dr. Mohsen GastelumUnlisted Reason for Exam - Click Yes and Enter Reason Below->YesUnlis kianna Reason for Exam->cancer screening, cirrhosis, on liver transplant list [facility] : 1950 Sex: FFINAL REPORT TECHNIQUE: MRI of the abdomen WITHOUT and WITH intraveno us contrast. INDICATION: Liver lesion, high cancer risk (Ped 0-18y)cancer screening, cirrhosis, on liver transplant list. COMPARISON: Abdominal MRI 12/16/2020. FINDINGS:Suboptimal evaluation due to motion artifact on postcontrast sequences. LOWER THORAX: Very large right pleural effusion with associated right-sided atelectasis. No significant left pleural effusion marked asymmetric elevation of the left hemidiaphragm.. LIVER: Cirrhotic morphology of the liver. Increased in size of the now 1.2 cm arterially enhancing observation in the periphery of segment 5 with washout and pseudocapsule, now LI-RADS 5 (arterial phase image 40). No significant change in the 2.2 x 1.8 cm cyst in segment VIII (LI-RADS 1). A 0.5 cm focus of arterial phase hyperenhancement in segment 5 medially, no washout or pseudocapsule, LI-RADS 3 (arterial phase image 32). An unchanged subcentimeter T2 hyperintensity in segment 2, enhancement identical to blood pool, either a tortuous vessel or small hemangioma.BILIARY: Prior ch olecystectomy. Common duct remains at the upper limit of normal in caliber without definite filling defect, no change. No significant change in nonenhancing linear T2 hyperintensities adjacent to the cyst in hepatic segment VIII, which may represent mildly prominent bile ducts or small thrombosed branc hes of the right portal vein. SPLEEN: 15.9 cm splenomegaly.PANCREAS: No solid mass or ductal dilatation in the visualized pancreas. Previously noted punctate cystic focus in the body is not visualizedtoday. ADRENALS: No adrenal nodule.KIDNEYS/URETERS: No hydronephrosis or mass. Subcentimeter cyst inthe right lower pole. PERITONEUM/RETROPERITONEUM: Moderate volume ascites.LYMPH NODES: No lymphadenopathy.VESSELS: Unchanged small peripheral nonocclusive thrombus in the upper SMV, main portal vein with extension into the right portal vein, and chronic appearing peripheral thrombus in the right hepatic vein. Main portal vein is 16 mm in diameter. Recanalized umbilical vein. Conventional hepatic arterial anatomy. Abdominal aorta is normal in caliber. GI TRACT: No evidence for bowel obstruction. Embolic coil or endoscopic clip artifact obscures most of the stomach. BONES AND SOFT TISSUES: Unremarkable. IMPRESSION: 1.Cirrhosis with portal hypertension and moderate volume ascites. 2.Slightly increased size of a now 1.2 cm arterially enhancing observation in segment V, compatible with hepatocellular carcinoma (LI-RADS 5). No other definite or probable HCC. 3.Unchanged nonocclusive thrombus in thesuperior mesenteric vein, main and right portal and right hepatic veins. 4.Unchanged large right pleural effusion. Signed: Kayla Lema MDReport Verified Date/Time: 03/22/2021 19:19:46 Reading Location: [facility] B1 C013Y CT Body Reading Room Electronically signed by: KAYLA LEMA MD on 107:19 PMMR abdomen with/without IV [id number] 19:19:00Interface, External Ris In - 03/22/2021 7:22 PM CDTFINAL REPORT TECHNIQUE: MRI of the abdomen WITHOUT and WITH intravenous contrast. INDICATION: Liver lesion, high cancer risk (Ped 0-18y)cancer screening, cirrhosis, on liver transplant list. COMPARISON: Abdominal MRI 12/16/2020.FINDINGS:Suboptimal evaluation due to motion artifact on postcontrast sequences. LOWER THORAX: Very large right pleural effusion with associated right-sided atelectasis. No significant left pleural effusion marked asymmetric elevation of the left hemidiaphragm.. LIVER: Cirrhotic morphology of the liver. Increased in size of the now 1.2 cm arterially enhancing observation in the periphery of segment 5with washout and pseudocapsule, now LI-RADS 5 (arterial phase image 40). No significant change in the 2.2 x 1.8 cm cyst in segment VIII (LI-RADS 1). A 0.5 cm focus of arterial phase hyperenhancement insegment 5 medially, no washout or pseudocapsule, LI- RADS 3 (arterial phase image 32). An unchanged subcentimeter T2 hyperintensity in segment 2, enhancement identical to blood pool, either a tortuous vessel or small hemangioma.BILIARY: Prior cholecystectomy. Common duct remains at the upper limit of normal in caliber without definite filling defect, no change. No significant change in nonenhancing linear T2 hyperintensities adjacent to the cyst in hepatic segment VIII, which may represent mildly prominent bile ducts or small thrombosed branches of the right portal vein. SPLEEN: 15.9 cm splenomegaly .PANCREAS: No solid mass or ductal dilatation in the visualized pancreas. Previously noted punctatecystic focus in the body is not visualized today. ADRENALS: No adrenal nodule.KIDNEYS/URETERS: No hydronephrosis or mass. Subcentimeter cyst in the right lower pole. PERITONEUM/RETROPERITONEUM: Moderate volume ascites.LYMPH NODES: No lymphadenopathy.VESSELS: Unchanged small peripheral nonocclusive thrombus in the upper SMV, main portal vein with extension into the right portal vein, and chronic appearing peripheral thrombus in the right hepatic vein. Main portal vein is 16 mm in diameter. Recanalized umbilical vein. Conventional hepatic arterial anatomy. Abdominal aorta is normal in caliber. GI TRACT: No evidence for bowel obstruction. Embolic coil or endoscopic clip artifact obscures most of thestomach. BONES AND SOFT TISSUES: Unremarkable. IMPRESSION: 1.Cirrhosis with portal hypertension and moderate volume ascites. 2.Slightly increased size of a now 1.2 cm arterially enhancing observationin segment V, compatible with hepatocellular carcinoma (LI-RADS 5). No other definite or probable HCC. 3.Unchanged nonocclusive thrombus in the superior mesenteric vein, main and right portal and righthepatic veins. 4.Unchanged large right pleural effusion. Signed: Kayla Lema Verified Date/Time: 03/22/2021 19:19:46 Reading Location: [facility] C013Y CT Body Reading Room [facility] ValleyBODY FLUID CELL COUNT WITH [id number] 11:32:00 Test Item Value Reference Range Interpretation Comments APPEARANCE FLUID Hazy Clear A (BEAKER) (test code = 510) COLOR FLUID (BEAKER) Colorless Colorless, Straw (test code = 511) RBC FLUID (BEAKER) 62 /cu mm See_Comment H [Automat ed message] (test code = 513) The system which generated this result transmitted ref erence range: <=1. The reference range was not used to int erpret this result as normal/abnormal . ADJUSTED WBC FLUID 53 /cu mm See_Comment H [Automat ed message] (BEAKER) (test code = The sy stem which 1699) generated this result transmitted ref erence range: <=5. The reference range was not used to int erpret this result as normal/abnormal . LINING CELLS (BEAKER) 0 /cu mm See_Comment [Auto mated message] (test code = 1590) The syste [employer] which generated this result transmitted ref erence range: <=1. The reference range was not used to int erpret this result as normal/abnormal . NEUTROPHILS FLUID 38 % (BEAKER) (test code = 1656) LYMPHS FLUID (BEAKER) 44 % (test code = 488) MONO/MACROPHAGE FLUID 18 % (BEAKER) (test code = 489) EOSINOPHILS FLUID 0 % (BEAKER) (test code = 491) BASO FLUID (BEAKER) 0 % (test code = 492) CONTAINER BODY FLUID EDTA Tube (BEAKER) (test code = 2873) U/S, [id number] 13:38:00Referring: Dr. Mohsen Josephinister 200 mL of albumin 25% (50 grams) IV x1 after paracentesis if3 or more liters removed.Send ascitic fluid for cell count and differential.Labs to be ordered:->Other (please add comment)Reason for Exam:->ascites, on liver [facility] listDA[facility]Name[facility] : 1950 Sex: FFINAL REPORT Ultrasound guided paracentesis Clinical History: Ascite s. Sedation: None. Manufacturing Engineer Automotive: Shasha Hall PA-C Supervising Physician: Gagandeep Kaur MD Network Field Engineer: None. Estimated Blood Loss: < 1 mL. Specimen: 5300 mL of clear yellow fluid, samples sent to laboratory. Technique: Informed consent was obtained. The risks of pain, bleed ing, infection, bowel perforation, injury to adjacent structures, and adverse medication reactions were discussed with the patient. After informed consent was obtained, the patient's abdomen was scanned. The right lower quadrant of the abdomen was selected for paracentesis. After the largest fluidpocket area was marked, and the anterior abdominal wall was evaluated with color Doppler to exclude presence of blood vessels traversing the area, the skin was prepped and draped in the usual sterile manner. After local anesthesia was achieved with lidocaine, a 5 Norwegian one-step catheter was advancedinto the peritoneal cavity under ultrasound guidance. After completion of drainage, the catheter was removed. There was no evidence of complication. Impression:Successful ultrasound guided paracentesis. Signed: Gagandeep [place] Verified Date/Time: 02/25/2021 13:38:26 Reading Location: [facility] P006J Ultrasound Reading Room BODY FLUID CELL COUNT WITH [id number] 13:25:00 Test Item Value Reference Range Interpretation Comments APPEARANCE FLUID Clear Clear (BEAKER) (test code = 510) COLOR FLUID (BEAKER) Straw Colorless, Straw (test code = 511) RBC FLUID (BEAKER) 30 /cu mm See_Comment H [Automat ed message] (test code = 513) The system which generated this result transmit kianna reference range : <=1. The refere nce range was not u sed to interpret th is result as normal/abnormal . ADJUSTED WBC FLUID 25 /cu mm See_Comment H [Automat ed message] (BEAKER) (test code The syst em which = 1691) generated this result transmit kianna reference range : <=5. The refere nce range was not u sed to interpret th is result as normal/abnormal . LINING CELLS 0 /cu mm See_Comment [Automated mes [place]] (BEAKER) (test code The syst em which = 1590) generated this result transmit kianna reference range : <=1. The refere nce range was not u sed to interpret th is result as normal/abnormal . NEUTROPHILS FLUID 39 % (BEAKER) (test code = 1656) LYMPHS FLUID 25 % (BEAKER) (test code = 488) MONO/MACROPHAGE 36 % FLUID (BEAKER) (test code = 489) EOSINOPHILS FLUID 0 % (BEAKER) (test code = 491) BASO FLUID (BEAKER) 0 % (test code = 492) CONTAINER BODY FLUID Sterile Vial (BEAKER) (test code = 2873) Venous doppler legs [id number] 16:01:36Ejection FractionSLEH ECHO HEARTLAB MKCKESSON CPACSRight Impression1. There is no deep venous obstruction in the common femoral, profundafemoral, femoral, popliteal, posterior tibial or peroneal veins.2. There is no superficial venous obstruction in the great saphenous vein.Left Impression1. There is no deep venous obstruction in the common femoral, profundafemoral, femoral, popliteal, posterior tibial or peroneal veins.2. There is no superficial venous obstruction in the great saphenous vein. Conclusions Summary Venous duplex imaging and compression of the bilateral lower extremities were performed. The veins were adequately visualized. The bilateral venous systems were patent and compressiblewith no evidence of thrombus. The venous Doppler waveforms were phasic with respiration. Signature Velocities are measured in cm/s ; Diameters are measured in cm Interface, External Ris In - 02/22/2021 4:01 PM CDTPV LAB - Lower Extremities DVT Study Demographics Patient Name SAMIR REIS Date of Study 02/22/2021 SMILEY Age 70 Visit Number [id number] Gender Female Accession Number [id number] Date of 1950 Referring Deanna Turner Room Number [facility] OPT Physician Keena Dye Operator Nico Murillo Interpreting Taisha Torrez MD RVS Physician ProcedureType of Study: Veins: Lower Extremities DVT Study, VENOUS DOPPLER LEG, BILATERAL. Indications for Study:Bilateral leg pain, Swelling and Redness .Patient Status:Routine.Study Location:Vascular Lab.Technical Quality:Adequate visualization.Risk FactorsHistory of Disease+ +----+ +!Diagnosis !Date!Comments !+ +----+ +!Hi story/Risk Factors: ! !Liver cirrhosis, DM, HTN, Ascites !+ +----+ +ImpressionsRight Impression1. There is no deep venous obstruction in the common femoral, profundafemoral, femoral, popliteal, posterior tibial or peroneal veins.2. There is no superficial venous obstruction in the great saphenous vein.Left Impression1. There is no deepvenous obstruction in the common femoral, profundafemoral, femoral, popliteal, posterior tibial or peroneal veins.2. There is no superficial venous obstruction in the great saphenous vein. ConclusionsSummary Venous duplex imaging and compression of the bilateral lower extremities were performed. The veins were adequately visualized. The bilateral venous systems were patent and compressible with no evidence of thrombus. The venous Doppler waveforms were phasic with respiration. Signature Velocities are measured in cm/s ; Diameters are measured in [facility] HospitalAlpha [facility] (AFP), tumor [id number] 12:29:00 Test Item Value Reference Range Interpretation Comments Alpha-Fetoprotein (test 2.2 ng/mL <10.0 code = 1834-1) FAUSTO (test code = FAUSTO) General Technician ID - ADRIA M Lab Interpretation (test Normal code = 66551-9) [facility] ValleyALPHA FETOPROTEIN (AFP), TUMOR [id number] 12:29:00 Test Item Value Reference Range Interpretation Comments ALPHA-FETOPROTEIN (BEAKER) (test 2.2 ng/mL <10.0 code = 1094) General Technician JULES Philly ADRIA MCOMPREHENSIVE METABOLIC [id number] 11:45:00 Test Item Value Reference Range Interpretation Comments TOTAL PROTEIN 8.1 gm/dL 6.0-8.3 (BEAKER) (test code = 770) ALBUMIN (BEAKER) 3.1 g/dL 3.5-5.0 L (test code = 1145) ALKALINE PHOSPHATASE 118 U/L 40-150 (BEAKER) (test code = 346) BILIRUBIN TOTAL 1.0 mg/dL 0.2-1.2 (BEAKER) (test code = 377) SODIUM (BEAKER) (test 134 meq/L 136-145 L code = 381) POTASSIUM (BEAKER) 4.0 meq/L 3.5-5.1 (test code = 379) CHLORIDE (BEAKER) 102 meq/L 98-107 (test code = 382) CO2 (BEAKER) (test 26 meq/L 22-29 code = 355) BLOOD UREA NITROGEN 15 mg/dL 7-21 (BEAKER) (test code = 354) CREATININE (BEAKER) 0.96 mg/dL 0.57-1.25 (test code = 358) GLUCOSE RANDOM 155 mg/dL 70-105 H (BEAKER) (test code = 652) CALCIUM (BEAKER) 8.7 mg/dL 8.4-10.2 (test code = 697) AST (SGOT) (BEAKER) 31 U/L 5-34 (test code = 353) ALT (SGPT) (BEAKER) 19 U/L 6-55 (test code = 347) EGFR (BEAKER) (test 57 mL/min/1.73 ESTIMA KIANNA GFR IS code = 1092) sq m NOT ACCURATE CREATININE CLEARANCE IN PREDICTING GLOMERULAR FILTRATION RATE . ESTIMATED GFR I S NOT APPLICABLE FOR DIALYSIS PATIEN TS. General Technician ID - ADRIA MBILIRUBIN, [id number] 11:45:00 Test Item Value Reference Range Interpretation Comments BILIRUBIN DIRECT (BEAKER) (test 0.5 mg/dL 0.1-0.5 code = 706) General Technician ID - ADRIA MCBC W/PLT COUNT & AUTO [id number] 11:25:00 Test Item Value Reference Range Interpretation Comments WHITE BLOOD CELL COUNT (BEAKER) 3.0 K/ L 3.5-10.5 L (test code = 775) RED BLOOD CELL COUNT (BEAKER) 2.94 M/ L 3.93-5.22 L (test code = 761) HEMOGLOBIN (BEAKER) (test code = 8.0 GM/DL 11.2-15.7 L 410) HEMATOCRIT (BEAKER) (test code = 26.0 % 34.1-44.9 L 411) MEAN CORPUSCULAR VOLUME (BEAKER) 88.4 fL 79.4-94.8 (test code = 753) MEAN CORPUSCULAR HEMOGLOBIN 27.2 pg 25.6-32.2 (BEAKER) (test code = 751) MEAN CORPUSCULAR HEMOGLOBIN CONC 30.8 GM/DL 32.2-35.5 L (BEAKER) (test code = 752) RED CELL DISTRIBUTION WIDTH 15.6 % 11.7-14.4 H (BEAKER) (test code = 412) PLATELET COUNT (BEAKER) (test 108 K/CU MM 150-450 L code = 756) MEAN PLATELET VOLUME (BEAKER) 10.0 [...] (test code = 437) NEUTROPHILS ABSOLUTE COUNT 2.37 K/ L 1.56-6.13 (BEAKER) (test code = [...] PERCENT (BEAKER) (test code = 2801) PROTHROMBIN [id number] 11:22:00 Test Item Value Reference Range Interpretation Comments PROTIME (BEAKER) 15.9 seconds 11.9-14.2 H (test code = 759) INR (BEAKER) (test 1.31 See_Comment [Automat ed message] code = 370) The system [employer] generated this result transmitted ref erence range: <=5.90. The reference range was not used to int erpret this result as normal/abnormal . Effective 04/09/2019: PT Reference Range ChangeNew: 11.9-14.2 Previous: 11.7- 14.7RECOMMENDED COUMADIN/WARFARIN INR THERAPY RANGESSTANDARD DOSE: 2.0-3.0 Includes: PROPHYLAXIS for venous thrombosis, systemic embolization; TREATMENT for venous thrombosis and/or pulmonary embolus.HIGH RISK: Target INR is2.5-3.5 for patients wiht mechanical heart valves.BODY FLUID CELL COUNT WITH [id number] 13:54:00 Test Item Value Reference Range Interpretation Comments APPEARANCE FLUID Clear Clear (BEAKER) (test code = 510) COLOR FLUID (BEAKER) Yellow Colorless, Straw A (test code = 511) RBC FLUID (BEAKER) 75 /cu mm See_Comment H [Automat ed message] (test code = 513) The system which generated this result transmit kianna reference range : <=1. The refere nce range was not u sed to interpret th is result as normal/abnormal . ADJUSTED WBC FLUID 28 /cu mm See_Comment H [Automat ed message] (BEAKER) (test code = The sy stem which 1691) generated this result transmit kianna reference range : <=5. The refere nce range was not u sed to interpret th is result as normal/abnormal . LINING CELLS (BEAKER) 0 /cu mm See_Comment [Auto mated message] (test code = 1590) The syste m which generated this result transmit kianna reference range : <=1. The refere nce range was not u sed to interpret th is result as normal/abnormal . NEUTROPHILS FLUID 41 % (BEAKER) (test code = 1656) LYMPHS FLUID (BEAKER) 19 % (test code = 488) MONO/MACROPHAGE FLUID 40 % (BEAKER) (test code = 489) EOSINOPHILS FLUID 0 % (BEAKER) (test code = 491) BASO FLUID (BEAKER) 0 % (test code = 492) CONTAINER BODY FLUID Sterile Cup (BEAKER) (test code = 2873) U/S, [id number] 12:46:00Referring: Dr. Mohsen Dillarddminister 200 mL of albumin 25% (50 grams) IV x1 after paracentesis if3 or more liters removed.Send ascitic fluid for cell count and differential.Labs to be ordered:->Cell CountReason for Exam:->ascites [facility] S[facility] : 1950 Sex: FFINAL REPORT Ultrasound guided paracentesis Clinical History: Ascite s. Sedation: None. Manufacturing Engineer Automotive: Shasha Hall PA-C Supervising Physician: Lobo Bauer MD Network Field Engineer: None. Estimated Blood Loss: < 1 mL. Specimen: 4300 mL of clear yellow fluid, samples sent to laboratory. Technique: Informed consent was obtained. The risks of pain, bleed ing, infection, bowel perforation, injury to adjacent structures, and adverse medication reactions were discussed with the patient. After informed consent was obtained, the patient's abdomen was scanned. The right lower quadrant of the abdomen was selected for paracentesis. After the largest fluidpocket area was marked, and the anterior abdominal wall was evaluated with color Doppler to exclude presence of blood vessels traversing the area, the skin was prepped and draped in the usual sterile manner. After local anesthesia was achieved with lidocaine, a 5 Norwegian one-step catheter was advancedinto the peritoneal cavity under ultrasound guidance. After completion of drainage, the catheter was removed. There was no evidence of complication. Impression:Successful ultrasound guided paracentesis. Signed: Lobo Bauer Verified Date/Time: 01/11/2021 12:46:27 Reading Location: [address] Ultrasound Reading Room BODY FLUID CELL COUNT WITH [id number] 14:20:00 Test Item Value Reference Range Interpretation [...] Vial (test code = 2873) MR, ABDOMEN, [id number] 14:18:00Referring: Dr. Mohsen MullentUnlisted Reason for Exam - Click Yes and Enter Reason Below->YesUnlisted Reason for Exam- >main portal vein and SMV non occlusive thrombosisAnesthesia:->NoneDeos the patient have an implanted electronic device?->No [facility] : 1950 Sex: FAddendum BeginsREPORT STATUS:A IMPRESSION [...] Jr Bolanos MDReport Verified Date/Time: 12/16/2020 12:58:09 ALPHA FETOPROTEIN (AFP), TUMOR [id number] 07:57:00 Test Item Value Reference Range Interpretation Comments ALPHA-FETOPROTEIN (BEAKER) (test 2.3 ng/mL <10.0 code = 1094) General Technician ID - ADRIA MCOMPREHENSIVE METABOLIC [id number] 07:37:00 Test Item Value Reference Range Interpretation [...] S NOT APPLICABLE FOR DIALYSIS PATIEN TS. General Technician ID - ADRIA MBILIRUBIN, [id number] 07:37:00 Test Item Value Reference Range Interpretation Comments BILIRUBIN DIRECT (BEAKER) (test 0.5 mg/dL 0.1-0.5 code = 706) General Technician ID - ADRIA MCBC W/PLT COUNT & AUTO [id number] 07:18:00 Test Item Value Reference Range Interpretation [...] PERCENT (BEAKER) (test code = 2801) PROTHROMBIN TIME/[id number] 07:06:00 Test Item Value Reference Range Interpretation [...] is2.5-3.5 for patients wiht mechanical heart valves.U/S, [id number] 09:44:00 Referring: Dr. Mohsen Ingram pleural fluid for cell count and differential..Laterality?->RightLabs to be Ordered:->Other (please add comment)Reason for Exam:->Pleural effusion [facility] SMI[facility] : 1950 Sex: FFINAL REPORT Exam: Ultrasound guided thoracentesis Clinical History: Right-sided Pleural Effusion Manufacturing Engineer Automotive: Shasha Hall PA-C Supervising Physician: Lobo Bauer [...] Ultrasound guided right-sided thoracentesis. Signed: Lobo Bauer [facility] Verified Date/Time: 11/15/2020 09:44:42 Reading Location: [address] Ultrasound Reading Room Ultrasound THORACENTESIS 2020-11-15 09:44:00Interface, External Ris In - 11/15/2020 9:46 AM CSTFINAL REPORT Exam: Ultrasound guided thoracentesis Clinical History: Right-sided Pleural Effusion Manufacturing Engineer Automotive: Shasha Hall PA-C Supervising Physician: Lobo Bauer [...] MDReport Verified Date/Time: 11/15/2020 09:44:42 Reading Location: [address] [facility]trasound [facility] WITH [id number] 18:27:00 Test Item Value Reference Range Interpretation [...] = 2873) RAD, CHEST, 1 VIEW, NON [id number] 18:05:00Referring: Dr. Mohsen Padron for exam:->follow up cxr post right thora skin fold vs. PTXSho uld this be performed at the bedside?->Yes [facility]LE[facility]AMIR SMILEY : 1950 Sex: FFINAL REPORT [...] year to document stability. Signed: Jeb Lopez Verified Date/Time: 11/11/2020 18:05:58 Reading Location: [facility] C0[facility] Consult Reading Room XR chest 1 view portable / [id number] 18:05:00Interface, External Ris In - 11/11/2020 6:08 [...] MDReport Verified Date/Time: 11/11/2020 18:05:58 Reading Location: [facility] B1 C013W Consult [facility], NON [id number] 17:24:00Referring: Dr. Mohsen Padron for exam:->post right sided thoracentesisShould this be performed at the bedside?->Yes [facility] S[facility]LEYSAMIR SMILEY : 1950 Sex: FFINAL REPORT [...] follow-up imaging is recommended. Signed: Jeb Lopez MDReport Verified Date/Time: 11/11/2020 17:24:49 Reading Location: [address] Consult Reading Room U/S, [id number] 12:21:00Referring: Dr. Mohsen Josephinisvic 200 mL of albumin 25% (50 grams) IV x1 after paracentesis if3 or more liters removed.Send ascitic fluid for cell count and differential.Labs to be ordered:->Cell CountReason for Exam:->ascitesDAVIES CAMPUSName: SMILEY SAMIRSPARKLE REIS : 1950 Sex: FFINAL REPORT Ultrasound guided paracentesis Clinical History: Ascite s. Sedation: None. Manufacturing Engineer Automotive: Shasha Hall PA-C Supervising Physician: Marnie Aguilar MD Network Field Engineer: None. Estimated Blood Loss: < 1 mL. [...] anesthesia was achieved with lidocaine, a 5 Norwegian one-step catheter was advanced into the peritoneal cavity under ultrasound guidance. After completion of drainage, the catheter was removed. There was no evidence of complication. Impression:Successful ultrasound guided paracentesis.Signed: Marnie Aguilar [facility] Center[facility] Verified Date/Time: 10/27/2020 12:21:45 Reading Location: [address] Ultrasound Reading Room BODY FLUID CELL COUNT WITH [id number] 17:59:00 Test Item Value Reference Range Interpretation [...] = 2873) CBC W/PLT COUNT & AUTO [id number] 14:21:00 Test Item Value Reference Range Interpretation [...] PERCENT (BEAKER) (test code = 2801) PROTHROMBIN TIME/[id number] 14:20:00 Test Item Value Reference Range Interpretation Comments PROTIME (BEAKER) (test code = 17.1 seconds 11.9-14.2 H 759) INR (BEAKER) (test code = 370) 1.43 <=5.90 Effective 04/09/2019: PT Reference Range ChangeNew: 11.9-14.2 Previous: 11.7- 14.7RECOMMENDED COUMADIN/WARFARIN INR THERAPY RANGESSTANDARD DOSE: 2.0-3.0 Includes: PROPHYLAXIS for venous thrombosis, systemic embolization; TREATMENT for venous thrombosis and/or pulmonary embolus.HIGH RISK: Target INR is2.5-3.5 for patients wiht mechanical heart valves.[id number] 14:20:00 Test Item Value Reference Range Interpretation Comments PARTIAL THROMBOPLASTIN TIME 36.0 seconds 22.5-36.0 (BEAKER) (test code = 760) CBC with platelet count + automated [id number] 15:17:00 Test Item Value Reference Range Interpretation [...] ) MCV (test code = 89.2 fL 80-127 3307296) MCH (test code = 28.9 pg 27-33 ) MCHC (test code = 32.4 g/dL 32-36 ) RDW (test code = 13.8 % 09-26) Platelets (test code 80 See_Comment L [Autom ated = ) message] The system which generated this result transmitted reference range : 140 - 400 Thousand/uL. Th e reference range was not used to interpret this result as normal/abnormal . MPV (test code = 10.8 fL 7.5-12.5 7600762) # Neutros (test code 2856 See_Comment [Autom ated = 20200606) message] The system which generated this result [...] Comment(s) (test Giant plate lets code = 20200608) noted. FAUSTO (test code = FASTING:NOFASTING: FAUSTO) NO RAC (test code = Performing RAC) Organization Information: Site ID: RGA Name: [facility] Lab Address: [address] [place] [phone] Director: Lina Childs Lab Interpretation Abnormal (test code = 43154-2) [facility] ValleyPLATELET [id number] 15:17:00 Test Item Value Reference Range Interpretation Comments Platelet Estimate (test DECREASED ADEQUATE A code = 70202-9) FAUSTO (test code = FAUSTO) FASTING:NOFASTING: NO RAC (test code = RAC) Performing Organization Information: Site ID: RGA Name: [facility] Address: [address] [place] [phone] Director: Lina Childs Lab Interpretation (test Abnormal code = 65705-1) [facility] ValleyU/S, [id number] 17:47:00Referring: Dr. Mohsen Josephinisvic 200 mL of albumin 25% (50 grams) IV x1 after paracentesis Send ascitic fluid for cell count and differential.Labs to be ordered:->Cell CountReason for Exam:->ascites [facility] : 1950 Sex: FFINAL REPORT Ultrasound guided paracentesis Clinical History: Ascite s. Sedation: None. Manufacturing Engineer Automotive: Shasha Hall PA-C Supervising Physician: Marnie Aguilar MD Network Field Engineer: None. Estimated Blood Loss: < 1 mL. [...] anesthesia was achieved with lidocaine, a 5 Norwegian one-step catheter was advanced into the peritoneal cavity under ultrasound guidance. After completion of drainage, the catheter was removed. There was no evidence of complication. Impression:Successful ultrasound guided paracentesis.Signed: Marnie Aguilar MDReport Verified Date/Time: 08/31/2020 17:47:21 Reading Location: [facility] P006J Ultrasound Reading Room U/S, [id number] 17:46:00Referring: Dr. Mohsen Josephinisvic 200 mL of albumin 25% (50 grams) IV x1 after thoracentesisSend fluid for cell count and differential.Laterality?->RightLabs to be Ordered:- >Cell CountReason for Exam:->pleural effusion [facility] : 1950 Sex: FFINAL REPORT Exam: Ultrasound guided thoracentesis Clinical History: Right-sided Pleural Effusion Manufacturing Engineer Automotive: Shasha Hall PA-C Supervising Physician: Marnie Aguilar [...] Impression: Ultrasound guided right-sided thoracentesis. Signed: Marnie Aguilareport Verified Date/Time: 08/31/2020 17:46:41 Reading Location: [place] [id number] Ultrasound Reading Room [facility] signed by: MARNIE AGUILAR M.D. on 08/31/2020 05:46 PMBODY FLUID CELL COUNT WITH [id number] 15:35:00 Test Item Value Reference Range Interpretation [...] = 2873) BODY FLUID CELL COUNT WITH [id number] 15:34:00 Test Item Value Reference Range Interpretation [...] = 2873) RAD, CHEST, 1 VIEW, NON [id number] 11:31:00Referring: Dr. Mohsen Padron for exam:->post right sided thoracentesisShould this be perfor med at the bedside?->Yes [facility] : 1950 Sex: FFINAL REPORT [...] MDReport Verified Date/Time: 08/31/2020 11:31:20 Reading Location: [facility] Radiology Reading Room MR, ABDOMEN, [id number] 15:47:00Referring: Dr. Mohsen Downs Abdominal VesselsFINAL REPORT [...] obtained in 3-6 months for reassessment. Signed: Likhari, Gauruv MDReport Verified Date/Time: 08/24/2020 15:47:50 ALPHA FETOPROTEIN (AFP), TUMOR MARKER 2020-08-24 12:04:00 Test Item Value Reference Range Interpretation Comments ALPHA-FETOPROTEIN (BEAKER) (test 2.4 ng/mL <10.0 code = 1094) General Technician ID - ROSIANGCBC W/PLT COUNT & AUTO [id number] 11:58:00 Test Item Value Reference Range Interpretation [...] (BEAKER) (test code = 2801) COMPREHENSIVE METABOLIC [id number] 11:50:00 Test Item Value Reference Range Interpretation [...] S NOT APPLICABLE FOR DIALYSIS PATIEN TS. General Technician ID - JENNIFERBIN, [id number] 11:50:00 Test Item Value Reference Range Interpretation Comments BILIRUBIN DIRECT (BEAKER) (test 0.6 mg/dL 0.1-0.5 H code = 706) General Technician ID - EHLIOGPROTHROMBIN TIME/[id number] 11:37:00 Test Item Value Reference Range Interpretation [...] is2.5-3.5 for patients wiht mechanical heart valves.U/S, [id number] 18:12:00 Referring: Dr. Mohsen Rosas 200 mL of albumin 25% (50 grams) IV x1 after paracentesis if3 or more liters removed.Send ascitic fluid for cell count and differential.Labs to be ordered:->Cell CountReason for Exam:->ascites FINAL REPORT Ultrasound guided paracentesis. Clinical History: Ascites. Sedation: None. Manufacturing Engineer Automotive: Cindy Payton PA-C Network Field Engineer: None. Estimated Blood Loss: < 1 cc. [...] traversing the area, the skin was preppedand aped in the usual sterile manner. After local anesthesia was achieved with 2% lidocaine, a 5 Norwegian one-step catheter was advanced into the peritoneal cavity under ultrasound guidance. After completion of drainage, the catheter was removed. There was no evidence of complication. Impression:Successful ultrasound guided paracentesis. Signed: Brennan Ramirez MDReport Verified Date/Time: 08/23/202018:12:23 Reading Location: [address] Ultrasound Reading Room BODY FLUID CELL COUNT WITH [id number] 16:14:00 Test Item Value Reference Range Interpretation [...] EDTA Tube (test code = 2873) PROTHROMBIN TIME/[id number] 08:21:00 Test Item Value Reference Range Interpretation [...] mechanical heart valves.CBC W/PLT COUNT & AUTO [id number] 08:17:00 Test Item Value Reference Range Interpretation [...] PERCENT (BEAKER) (test code = 2801) U/S, [id number] 14:36:00Referring: Dr. Mohsen Josephinisvic 200 mL of albumin 25% (50 grams) IV x1 after paracentesis if3 or more liters removed.Send ascitic fluid for cell count and differential.Labs to be ordered:->Cell CountLabs to be ordered:->Other (please add comment)Reason for Exam:->ascitesFINAL REPORT Ultrasound guided paracentesis. Clinical History: Ascites. Sedation: None. Manufacturing Engineer Automotive: Cindy Payton PA-C Network Field Engineer: None. Estimated Blood Loss: < 1 cc. [...] was achieved with 2% lidocaine, a 5 Norwegian one-step catheter was advanced into the peritoneal cavity under ultrasound guidance. After completion of drainage, the catheter was removed. There was no evidence of complication. Impression:Successful ultrasound guided paracentesis. Signed: Tanner Quintanilla MDReport Verified Date/Time: 07/07/2020 1 4:36:04 Reading Location: [address] Ultrasound Reading Room BODY FLUID CELL COUNT WITH [id number] 11:24:00 Test Item Value Reference Range Interpretation [...] = 2873) BODY FLUID CELL COUNT WITH [id number] 15:07:00 Test Item Value Reference Range Interpretation [...] = 2873) RAD, CHEST, 1 VIEW, NON [id number] 11:21:00Referring: Dr. Mohsen Padron for exam:->s/p right [...] Verified Date/Time: 04/22/2020 11:21 :59 Reading Location: [facility] Radiology Reading Room U/S, ABDOMINAL, LIMITED 2020-04-22 [...] for planned therapeutic paracentesis. Signed: Marnie Aguilar MDReport Verified Date/Time: 04/22/2020 10:05:27 Reading Location: [facility] P006J Ultrasound Reading Room U/S, [id number] 10:04:00 Referring: Dr. Mohsen Dillarddminister 200 mL of albumin 25% (50 grams) IV x1 after thoracentesisSend fluid for cell count and differential.Laterality?- >Rightplease check both sidesLabs to be Ordered:->Other (please add comment)Reason for Exam:->hydrothoraxFINAL REPORT Ultrasound guided right thoracentesis Clinical History: Right pleural effusion. Modality: Ultrasound. Sedation: None. Manufacturing Engineer Automotive: Cindy Payton PA-C Network Field Engineer: None. Estimated Blood Loss: 1cc Specimen: 1400 [...] Aguilar Verified Date/Time: 04/22/2020 10:04:21 Reading Location: [facility] P006J Ultrasound Reading Room Elect ronically signed by: MARNIE AGUILAR M.D. on 04/22/2020 10:04 AMRAD, CHEST, 1 VIEW, NON [id number] 09:56:00Referring: Dr. Mohsen Padron for exam:- >s/p [...] Rodriguez Verified Date/Time: 04/22/2020 09:56:12 Reading Location: [facility] Radiology Reading Room COMPREHENSIVE METABOLIC PANEL 2020-04-06 [...] S NOT APPLICABLE FOR DIALYSIS PATIEN TS. General Technician ID - BETHANY EBILIRUBIN, [id number] 13:47:00 Test Item Value Reference Range Interpretation Comments BILIRUBIN DIRECT (BEAKER) (test 0.6 mg/dL 0.1-0.5 H code = 706) General Technician ID - BETHANY EPROTHROMBIN TIME/[id number] 13:35:00 Test Item Value Reference Range Interpretation [...] mechanical heart valves.CBC W/PLT COUNT & AUTO [id number] 13:25:00 Test Item Value Reference Range Interpretation [...] = 2801) BODY FLUID CULTURE + GRAM [id number] 11:24:00 Test Item Value Reference Range Interpretation Comments CULTURE (BEAKER) (test No growth code = 1095) GRAM STAIN RESULT 1+ White blood cells (BEAKER) (test code = seen 1123) GRAM STAIN RESULT No organisms seen (BEAKER) (test code = 74887) U/S, [id number] 10:05:00Referring: Dr. Mohsen Dillarddminister 200 mL of [...] guided thoracentesis Clinical History: Right-sided Pleural Effusion Manufacturing Engineer Automotive: Shasha Hall PA-C Consent: Benefits and risks [...] Ramirez MDReport Verified Date/Time: 04/02/2020 10:05:14 Reading Location:[address] Ultrasound Reading Room BODY FLUID CELL COUNT WITH [id number] 19:12:00 Test Item Value Reference Range Interpretation [...] = 2873) RAD, CHEST, 1 VIEW, NON [id number] 17:29:00Referring: Dr. Mohsen Padron for exam:->post right [...] MDReport Verified Date/Time: 04/01/2020 17:29:43 Reading Location: [address] Radiology Reading Room [id number] 14:34:00 Test Item Value Reference Range Interpretation Comments PARTIAL THROMBOPLASTIN TIME 32.6 seconds 22.5-36.0 (BEAKER) (test code = 760) CBC W/PLT COUNT & AUTO [id number] 14:34:00 Test Item Value Reference Range Interpretation [...] PERCENT (BEAKER) (test code = 2801) PROTHROMBIN [id number] 14:33:00 Test Item Value Reference Range Interpretation [...] for patients wiht mechanical heart valves.CT, ABDOMEN, [id number] 13:48:00Referring: Dr. Mohsen Renee Prctocol-Triple PhaseFINAL REPORT [...] MDReport Verified Date/Time: 03/23/2020 13:48:23 Reading Location: [facility] C013Y CT Body Reading Room Electronically signed by: ISIDRO VEGA M.D. on 01:48 [id number] 12:30:00 Test Item Value Reference Range Interpretation Comments POC-CREATININE 1.1 mg/dL 0.6-1.3 : TESTED AT [facility] ([facility]) (test [address] [facility] code = 1859) [place], [address]: General Technician/Techni anuj ID = [id number] for Gladis Neri POC-EGFR (MetGen) 49 mL/min/1.73M2 (test code = 1860) U/S, ABDOMINAL, [id number] 15:55:00Referring: Dr. Mohsen Gastelum LIMIT PARACENTESIS to 5* LITERS Administer 200 mL of albumin 25% (50 grams) IV x1 after paracentesis if 3 or more liters removed. Send ascitic fluid for cell count and differential. Labs to be ordered:->Other (please add comment) Reason for Exam:->ascites Location: For [place] Only[facility] HospitalFINAL REPORT History: Ascites. PROCEDURE: Limited sonographic examination of the abdomen was performed in preparation for planned ultrasound-guided paracentesis. Limited sonographic examination of the abdomen showed only a trace amount of fluid, primarily in the right upper quadrant. Therefore, paracentesis was not performed. IMPRESSION: 1. Trace ascites, not enough for plannedparacentesis. Signed: Mima Reyes MDReport Verified Date/Time: 01/16/2020 15:55:54 Reading Location: [facility] P006J Ultrasound Reading Room CBC W/PLT COUNT & AUTO [id number] 09:18:00 Test Item Value Reference Range Interpretation [...] PERCENT (BEAKER) (test code = 2801) PROTHROMBIN [id number] 09:03:00 Test Item Value Reference Range Interpretation [...] No organisms seen (BEAKER) (test code = 63324) POCT-GLUCOSE [id number] 11:58:00 Test Item Value Reference Range Interpretation Comments POC-GLUCOSE METER 157 mg/dL 70-110 H : TESTED A T [facility] 6720 (BEAKER) (test code = [facility], 1538) [address]: General Technician/Techni anuj ID = [id number] for MANUEL SOW CBC W/PLT COUNT & AUTO [id number] 08:21:00 Test Item Value Reference Range Interpretation [...] CONCENTRATION Decreased (CELLAVISION)(BEAKER) (test code = 3438) General Technician ID - Og Snaders comments: Slide comments:POCT-GLUCOSE [id number] 07:55:00 Test Item Value Reference Range Interpretation Comments POC-GLUCOSE METER 122 mg/dL 70-110 H : TESTED A T [facility] 6720 (BEAKER) (test code = [facility] [place] [place], 1538) [address]: General Technician/Techni anuj ID = [id number] for MANUEL SOW ALPHA FETOPROTEIN (AFP), TUMOR [id number] 07:21:00 Test Item Value Reference Range Interpretation Comments ALPHA-FETOPROTEIN (BEAKER) (test 2.2 ng/mL <10.0 code = 1094) General Technician ID - [id number] 05:45:00 Test Item Value Reference Range Interpretation Comments MAGNESIUM (BEAKER) (test code = 1.7 mg/dL 1.6-2.6 627) General Technician ID - ADRIA MBASIC METABOLIC [id number] 05:45:00 Test Item Value Reference Range Interpretation [...] S NOT APPLICABLE FOR DIALYSIS PATIEN TS. General Technician ID - ADRIA MHEPATIC FUNCTION [id number] 05:45:00 Test Item Value Reference Range Interpretation [...] (test code = 8 U/L 6-55 347) General Technician ID - ADRIA MPROTHROMBIN TIME/[id number] 05:25:00 Test Item Value Reference Range Interpretation [...] is2.5-3.5 for patients wiht mechanical heart valves.POCT-GLUCOSE [id number] 20:23:00 Test Item Value Reference Range Interpretation Comments POC-GLUCOSE METER 167 mg/dL 70-110 H : TESTED A T [facility] 6720 ([employer]) (test code = [facility] [place], 1538) [address]: General Technician/Techni anuj ID = [id number] for ABDIEL ROME POCT-GLUCOSE [id number] 17:14:00 Test Item Value Reference Range Interpretation Comments POC-GLUCOSE METER 189 mg/dL 70-110 H : TESTED A T [facility] 6720 ([employer]) (test code = [facility] [place], 1538) [address]: General Technician/Techni anuj ID = [id number] for WAYLON BELL, SUMA CT, ABDOMEN, [id number] 15:03:00Referring: Dr. Mohsen MullentFINAL REPORT TECHNIQUE: CT [...] MDReport Verified Date/Time: 11/28/2019 15:03:20 Reading Location: [facility] C013Y VA Body Reading Room POCT-GLUCOSE [id number] 11:44:00 Test Item Value Reference Range Interpretation Comments POC-GLUCOSE METER 179 mg/dL 70-110 H : TESTED A T [facility] 6720 (BEAKER) (test code = [facility], 1538) [address]: General Technician/Techni anuj ID = [id number] for KYLEE LERNER CUBA POCT-GLUCOSE [id number] 08:42:00 Test Item Value Reference Range Interpretation Comments POC-GLUCOSE METER 183 mg/dL 70-110 H : TESTED A T [facility] 6720 (BEAKER) (test code = [facility], 1538) [address]: General Technician/Techni anuj ID = [id number] for QUEEN MONROE [id number] 08:00:00 Test Item Value Reference Range Interpretation Comments MAGNESIUM (BEAKER) (test code = 1.7 mg/dL 1.6-2.6 627) General Technician ID - ROSIANGBASIC METABOLIC [id number] 08:00:00 Test Item Value Reference Range Interpretation [...] S NOT APPLICABLE FOR DIALYSIS PATIEN TS. General Technician ID - HELIOGHEPATIC FUNCTION [id number] 08:00:00 Test Item Value Reference Range Interpretation [...] (test code = 7 U/L 6-55 347) General Technician ID - CECIELIANAGPROTHROMBIN TIME/[id number] 06:18:00 Test Item Value Reference Range Interpretation [...] mechanical heart valves.CBC W/PLT COUNT & AUTO [id number] 06:14:00 Test Item Value Reference Range Interpretation [...] PERCENT (BEAKER) (test code = 2801) POCT-GLUCOSE [id number] 20:51:00 Test Item Value Reference Range Interpretation Comments POC-GLUCOSE METER 234 mg/dL 70-110 H : TESTED A T [facility] 6720 (BEAKER) (test code = [facility] [place], 1538) [address]: General Technician/Techni anuj ID = [id number] for NG O, LETTY HEMOGLOBIN [id number] 16:09:00 Test Item Value Reference Range Interpretation Comments HEMOGLOBIN A1C (MALU) (test code = 6.7 % 4.3-6.1 H 368) POCT-GLUCOSE [id number] 13:05:00 Test Item Value Reference Range Interpretation Comments POC-GLUCOSE METER 138 mg/dL 70-110 H : TESTED A T [facility] 6720 (MALU) (test code = [facility] [place], 1538) [address]: General Technician/Techni anuj ID = [id number] for ANTONY KEMP RAD, CHEST, 1 VIEW, NON [id number] 10:56:00Referring: Dr. Mohsen Padron for exam:->effusionShould this be performed at the bedside?-&g t;YesFINAL REPORT TECHNIQUE: Frontal chest radiograph dated 11/27/2019. CLINICAL HISTORY: Effusion COMPARISON STUDY: Chest radiograph dated 11/26/2019 IMPRESSION:Stable right pleural effusion with associated atelectasis. No pneumothorax. Cardiomediastinal silhouette is stable in appear ance. No pulmonary edema. No fracture. Signed: Minna Houseeport Verified Date/Time: 11/27/2019 10:56:02 Reading Location: [facility] Mammo Reading Room U/S, [id number] 10:32:00Referring: Dr. Mohsen MullentLaterality?- >RightReason for exam:->Right sided pleural effusion.Specimen to be collected:->Pleural fluidLabs to be Ordered:->Body Fluid Culture (w/Gram Stain, C\\T\\S)AlbuminLabs to be Ordered:->Glucose+LDH+ProteinLabs to be Ordered:->Other (please add comment)FINAL REPORT CLINICAL HISTORY: Pleural effusion, Right sided pleural effusion. COMPARISON: None CHUCK TENDER: Brennan Ramirez DO, JD PROFESSOR OF PUBLIC ADMINISTRATION: Portions of this procedure were assisted by the resident/fellow/PA under the direct supervision of the extract operator. ANESTHESIA: Local lidocaine. MEDICATIONS:Please see nursing note. DEVICE:5 Norwegian one-step catheter. ESTIMATED BLOOD LOSS: < 5cc [...] skin with 1 % lidocaine, a 5 Norwegian x 10 cm One-step catheter was advanced i nto the pleural space. Approximately 1.5 L of straw-colored fluid was removed. A sample was sent for analysis. The catheter was removed without immediate complication. Sterile dressing was applied. IMPRESSION: Successful ultrasound- guided diagnostic and therapeutic right thoracentesis. Signed: Brennan Ramirez MDReport Verified Date/Time: 11/27/2019 10:32:23 Reading Location: [place] [address] Angio Body Reading Room POCT-GLUCOSE [id number] 08:17:00 Test Item Value Reference Range Interpretation Comments POC-GLUCOSE METER 152 mg/dL 70-110 H : TESTED A T [facility] 6720 (BEAKER) (test code = [facility], 1538) [address]: General Technician/Techni anuj ID = [id number] for ANTONY KEMP [id number] 07:10:00 Test Item Value Reference Range Interpretation Comments MAGNESIUM (BEAKER) (test code = 1.8 mg/dL 1.6-2.6 627) General Technician ID - ANNETTE WBASIC METABOLIC [id number] 07:10:00 Test Item Value Reference Range Interpretation [...] S NOT APPLICABLE FOR DIALYSIS PATIEN TS. General Technician ID - ANNETTE WHEPATIC FUNCTION [id number] 07:10:00 Test Item Value Reference Range Interpretation [...] (test code = 8 U/L 6-55 347) General Technician ID - ANNETTE KYLEERON, TIBC, % SAT. (WITHOUT FERRITIN)2019-11-27 06:49:00 Test Item Value Reference Range Interpretation Comments IRON (BEAKER) (test code = 547) 15.0 ug/dL 40.0-160.0 L TOTAL IRON BINDING CAPACITY 315 ug/dL 250-450 (BEAKER) (test code = 769) IRON % SATURATION (2) (BEAKER) 5 % 20-55 L (test code = 2590) General Technician ID - ANNETTE [id number] 06:35:00 Test Item Value Reference Range Interpretation Comments FERRITIN (BEAKER) (test code = 361) 20 ng/mL 5-275 General Technician ID - ANNETTE WPROTHROMBIN TIME/[id number] 05:19:00 Test Item Value Reference Range Interpretation [...] mechanical heart valves.CBC W/PLT COUNT & AUTO [id number] 05:17:00 Test Item Value Reference Range Interpretation [...] PERCENT (BEAKER) (test code = 2801) POCT-GLUCOSE [id number] 22:04:00 Test Item Value Reference Range Interpretation Comments POC-GLUCOSE METER 142 mg/dL 70-110 H : TESTED A T [facility] 6720 (BEAKER) (test code = [facility], 1538) [address]: General Technician/Techni anuj ID = [id number] for NG O, LETTY BODY FLUID CELL COUNT WITH [id number] 20:41:00 Test Item Value Reference Range Interpretation [...] = 2873) BODY FLUID CELL COUNT WITH [id number] 20:41:00 Test Item Value Reference Range Interpretation [...] = 2873) RAD, CHEST, 1 VIEW, NON [id number] 18:03:00Referring: Dr. Mohsen Padron for exam:->effusionShould this [...] Lopez Verified Date/Time: 11/26/2019 18:03:50 Reading Location: [facility] C013W Consult Reading Room U/S, [id number] 17:59:00Referring: Dr. Mohsen SweattReason for exam:->abd painShould this be performed at the bedside?->NoFINAL REPORT Paracentesis dated 11/26/2019 Procedure: Ultrasound-guided paracentesis. Preprocedure diagnosis: Ascites Postprocedure diagnosis: Ascites Conscious sedation: None. Radiologist: Isidro Vega M.D. Network Field Engineer: None Anesthesia: 1% Xylocaine mixed with sodium bicarbonate local anesthesia. Technique: After obtaining informed consent, ultrasound-guided paracentesis was performed under usual sterile technique. Using a 5 urdu drainage catheter, puncture was made in the right lower quadrant abdomen. Approximately 3400 cc of clear yellowish fluid was removed. Patient tolerated the procedure well without complication. Complication: None Graft/Implant: None Estimated Blood Loss: None Impression: Ultrasound-guided paracentesis. Signed: Isidro Vega MDReport Verified Date/Time: 11/26/2019 17:59:17 Reading Location: [address] Body Reading Room LACTATE DEHYDROGENASE (LDH)2019-11-26 17:50:00 Test Item Value Reference Range Interpretation Comments LACTATE DEHYDROGENASE (BEAKER) (test 279 U/L 125-220 H code = 635) General Technician ID - CESAR FHEPATIC FUNCTION [id number] 17:50:00 Test Item Value Reference Range Interpretation [...] (test code = 11 U/L 6-55 347) General Technician ID - CESAR FURINALYSIS W/ [id number] 15:07:00 Test Item Value Reference Range Interpretation [...] = 516) SOURCE(BEAKER) (test code = 2795) General Technician ID - [auto][id number] 11:07:00 Test Item Value Reference Range Interpretation Comments PROTIME (BEAKER) (test code = 16.6 seconds 11.9-14.2 H 759) INR (BEAKER) (test code = 370) 1.4 <=5.9 PARTIAL THROMBOPLASTIN TIME 37.8 seconds 22.5-36.0 H (BEAKER) (test code = 760) Effective 04/09/2019: PT Reference Range ChangeNew: 11.9-14.2 Previous: 11.7- 14.7RECOMMENDED COUMADIN/WARFARIN INR THERAPY RANGESSTANDARD DOSE: 2.0-3.0 Includes: PROPHYLAXIS for venous thrombosis, systemic embolization; TREATMENT for venous thrombosis and/or pulmonary embolus.HIGH RISK: Target INR is2.5-3.5 for patients wiht mechanical heart valves.CT, [id number] 11:02:00 Referring: Dr. Mohsen MullentFINAL REPORT CT scan of the abdomen and [...] limits assessment.5. Status post cholecystectomy. Signed: Zach Montalvo MDReport Verified Date/Time: 11/26/2019 11:02:27 Reading Location: [facility] Diagnostic Imaging Reading Room - [place] [address] 112 BASIC METABOLIC [id number] 10:59:00 Test Item Value Reference Range Interpretation [...] S NOT APPLICABLE FOR DIALYSIS PATIEN TS. General Technician ID - [place] FCBC W/PLT COUNT & AUTO [id number] 10:45:00 Test Item Value Reference Range Interpretation [...] PERCENT (BEAKER) (test code = 2801) U/S, [id number] 11:17:00Referring: Dr. Mohsen Dillarddminister 200 mL of albumin 25% (50 grams) IV x1 after paracentesis if3 or more liters removed.Send ascitic fluid for cell count and differential.Labs to be ordered:->Other (please add comment)Reason for Exam:->ascites, portal hypertension, cirrhosisFINAL REPORT Ultrasound guided paracentesis Clinical History: Ascites. Sedation: None. Manufacturing Engineer Automotive: Shasha Hall PA-C Supervising Physician: Marnie Aguilar MD Network Field Engineer: None. Estimated Blood Loss: < 1 mL. [...] anesthesia was achieved with lidocaine, a 5 Norwegian one-step catheter was advanced into the peritoneal cavity under ultrasound guidance. After completion of drainage, the catheter was removed. There was no evidence of complication. Impression:Successful ultrasound guided paracentesis. Signed: Brianna stock Marnie MDReport Verified Date/Time: 10/02/2019 11:17:34 Reading Location: [facility] P006J Ultrasound Reading Room U/S, ABDOMINAL, [id number] 19:03:00 Referring: Dr. Mohsen GastelumWith dopplerReason for [...] MDReport Verified Date/Time: 10/01/2019 19:03:00 Reading Location: [address] Radiology Reading Room BODY FLUID CELL COUNT WITH [id number] 17:46:00 Test Item Value Reference Range Interpretation [...] (BEAKER) EDTA Tube (test code = 2873) [id number] 12:52:00 Test Item Value Reference Range Interpretation Comments POC-CREATININE 0.8 mg/dL 0.6-1.[address] [facility] 6720 (BEAKER) (test [place] code = 1859) [address] POC-EGFR (BEAKER) 71 mL/min/1.73M2 (test code = 1860) U/S, [id number] 15:47:00Referring: Dr. Mohsen Dlilarddminister 200 mL of albumin 25% (50 grams) IV x1 after paracentesis if3 or more liters removed.Send ascitic fluid for cell count and differential.Labs to be ordered:->Other (please add comment)Reason for Exam:->ascites, cirrhosis FINAL REPORT Ultrasound guided paracentesis. Clinical History: Ascites. Sedation: None. Manufacturing Engineer Automotive: Cindy Payton PA-C Network Field Engineer: None. Estimated Blood Loss: < 1 cc. [...] was achieved with 2% lidocaine, a 5 Norwegian one-step catheter was advanced into the peritoneal cavity under ultrasound guidance. After completion of drainage, the catheter was removed. There was no evidence of complication. Impression:Successful ultrasound guided paracentesis. Signed: Lobo Bauer MDReport Verified Date/Time: 09/04/2019 15:47:39 Reading Location: [address] Ultrasound Reading Room BODY FLUID CELL COUNT WITH [id number] 14:29:00 Test Item Value Reference Range Interpretation [...] Cup (test code = 2873) COMPREHENSIVE METABOLIC [id number] 11:06:00 Test Item Value Reference Range Interpretation [...] NOT APPLICABLE FOR DIALYSIS PATIEN TS. BILIRUBIN, [id number] 11:06:00 Test Item Value Reference Range Interpretation Comments BILIRUBIN DIRECT (BEAKER) (test 0.4 mg/dL 0.1-0.5 code = 706) CBC W/PLT COUNT & AUTO [id number] 11:02:00 Test Item Value Reference Range Interpretation [...] PERCENT (BEAKER) (test code = 2801) PROTHROMBIN [id number] 10:57:00 Test Item Value Reference Range Interpretation [...] NOT APPLICABLE FOR DIALYSIS PATIEN TS. BILIRUBIN, [id number] 15:06:00 Test Item Value Reference Range Interpretation Comments BILIRUBIN DIRECT (BEAKER) (test 0.5 mg/dL 0.1-0.5 code = 706) CBC W/PLT COUNT & AUTO [id number] 14:58:00 Test Item Value Reference Range Interpretation [...] PERCENT (BEAKER) (test code = 2801) PROTHROMBIN [id number] 14:46:00 Test Item Value Reference Range Interpretation [...] patients wiht mechanical heart valves.RAD, CHEST, 2 [id number] 14:27:00 Referring: Dr. Mohsen Pdaron for Exam:->Diminshed breath sounds in right lungFINAL [...] Kaur MDReport Verified Date/Time: 08/19/2019 14:27:11 Reading Location:[facility] Women URINALYSIS W/ REFLEX URINE CULTURE 2019-08-14 06:05:00 [...] 1584) SOURCE(BEAKER) (test code = 2795) CT, [id number] 05:39:00Referring: Dr. Mohsen Padron for exam:- >ABDOMINAL [...] Isidro Vallejo MDReport Verified Date/Time: 08/14/2019 05:39:00 [id number] 01:33:00 Test Item Value Reference Range Interpretation Comments LIPASE (BEAKER) (test code = 749) 61 U/L 8-78 [id number] 01:33:00 Test Item Value Reference Range Interpretation Comments AMYLASE (BEAKER) (test code = 349) 78 U/L 25-125 BASIC METABOLIC [id number] 01:33:00 Test Item Value Reference Range Interpretation [...] APPLICABLE FOR DIALYSIS PATIEN TS. HEPATIC FUNCTION [id number] 01:33:00 Test Item Value Reference Range Interpretation [...] 6-55 347) CBC W/PLT COUNT & AUTO [id number] 00:59:00 Test Item Value Reference Range Interpretation [...] 0-1 PERCENT (BEAKER) (test code = 2801) [id number] 00:40:00 Test Item Value Reference Range Interpretation [...] is2.5-3.5 for patients wiht mechanical heart valves.LORI [id number] 17:37:00 Referring: Dr. Mohsen Padron for Exam:->cirrhosis, ascitesFINAL REPORT Attempted transjugular intrahepatic portosystemic shunt creation History: Cirrhosis, refractory ascites. Modality: Ultrasound and fluoroscopy. Sedation: General anesthesia was utilized. The vital signs were monitored throughout the procedure by anesthesia and remained stable. Manufacturing Engineer Automotive: MD Dwight. Network Field Engineer: Marnie Aguilar MD. Approach: Right internal jugular [...] needle into the right atrium. A 4 Norwegian micropuncture sheath was placed. A 0.035 inch J-wire was placed through the micropuncture sheath and the sheath was exchanged for a 10 Norwegian sheath. A 5 Norwegian angled tipcatheter was used to select the [...] MDReport Verified Date/Time: 07/05/2019 17:37:21 Reading Location: [facility] P048 Angio Body Reading Room POCT-GLUCOSE [id number] 18:42:00 Test Item Value Reference Range Interpretation Comments POC-GLUCOSE METER 128 mg/dL 70-[address] [facility] 6720 (BEAKER) (test code = [facility] 1538) [address] COMPREHENSIVE METABOLIC [id number] 10:55:00 Test Item Value Reference Range Interpretation [...] NOT APPLICABLE FOR DIALYSIS PATIEN TS. BILIRUBIN, [id number] 10:55:00 Test Item Value Reference Range Interpretation Comments BILIRUBIN DIRECT (BEAKER) (test 0.4 mg/dL 0.1-0.5 code = 706) [id number] 10:48:00 Test Item Value Reference Range Interpretation Comments PARTIAL THROMBOPLASTIN TIME 36.2 seconds 22.5-36.0 H (BEAKER) (test code = 760) PROTHROMBIN [id number] 10:47:00 Test Item Value Reference Range Interpretation [...] mechanical heart valves.CBC W/PLT COUNT & AUTO [id number] 10:40:00 Test Item Value Reference Range Interpretation [...] PERCENT (BEAKER) (test code = 2801) CT, [id number] 21:02:00Referring: Dr. Mohsen MullentFINAL REPORT INDICATION:Left upper [...] MDReport Verified Date/Time: 06/11/2019 21:02:31 Reading Location: [address] Consult Reading Room POCT-LACTIC ACID, VENOUS 2019-06-11 19:30:00 Test Item Value Reference Range Interpretation Comments POC-LACTIC ACID, 1.6 mmol/L 0.9-1.[address] [facility] 6720 VENOUS (BEAKER) (test [facility] code = 2805) [address] URINALYSIS W/ [id number] 17:57:00 Test Item Value Reference Range Interpretation [...] Rare 1574) SOURCE(BEAKER) (test code = 2795) [id number] 17:53:00 Test Item Value Reference Range Interpretation Comments LIPASE (BEAKER) (test code = 749) 49 U/L 8-78 HEPATIC FUNCTION [id number] 17:53:00 Test Item Value Reference Range Interpretation [...] = 12 U/L 6-55 347) BASIC METABOLIC [id number] 16:40:00 Test Item Value Reference Range Interpretation [...] PATIEN TS. CBC W/PLT COUNT & AUTO [id number] 16:08:00 Test Item Value Reference Range Interpretation [...] = 2801) CBC W/PLT COUNT & AUTO [id number] 10:37:00 Test Item Value Reference Range Interpretation [...] (BEAKER) (test code = 2801) HEPATIC FUNCTION [id number] 10:37:00 Test Item Value Reference Range Interpretation [...] = 15 U/L 6-55 347) BASIC METABOLIC [id number] 10:37:00 Test Item Value Reference Range Interpretation [...] NOT APPLICABLE FOR DIALYSIS PATIEN TS. PROTHROMBIN [id number] 10:23:00 Test Item Value Reference Range Interpretation [...] (BEAKER) No organisms seen (test code = 59869) U/S, [id number] 16:17:00Referring: Dr. Mohsen Padron for exam:->ASCITESFINAL REPORT Ultrasound guided paracentesis Clinical History: Ascites. Sedation: None. Manufacturing Engineer Automotive: Cindy Payton PA-C Network Field Engineer: None. Estimated Blood Loss: < 1 cc. [...] was achieved with 2% lidocaine, a 5 Norwegian one-step catheter was advanced into the peritoneal cavity under ultrasound guidance. After completion of drainage, the catheter was removed. There was no evidence of complication. This procedure was performed by NILDA Coy under direct supervision of Cirilo Craig M.D. Impression:Successful ultrasound guided paracentesis. Signed: Cirilo Craig MDReport Verified Date/Time: 05/19/2019 16:17:58 Reading Location: [place] [id number] Ultrasound Reading Room BODY FLUID CELL COUNT WITH [id number] 15:57:00 Test Item Value Reference Range Interpretation [...] Tube (test code = 2873) COMPREHENSIVE METABOLIC [id number] 11:54:00 Test Item Value Reference Range Interpretation [...] S NOT APPLICABLE FOR DIALYSIS PATIEN TS. [id number] 11:46:00 Test Item Value Reference Range Interpretation Comments AMMONIA (BEAKER) (test code = 348) 30 mol/L 18-72 [id number] 11:45:00 Test Item Value Reference Range Interpretation [...] mechanical heart valves.CBC W/PLT COUNT & AUTO [id number] 11:38:00 Test Item Value Reference Range Interpretation [...] code = 2801) ALPHA FETOPROTEIN (AFP), TUMOR [id number] 15:18:00 Test Item Value Reference Range Interpretation Comments ALPHA-FETOPROTEIN (BEAKER) (test 2.1 ng/mL <10.0 code = 1094) HEPATIC FUNCTION [id number] 15:13:00 Test Item Value Reference Range Interpretation [...] = 19 U/L 6-55 347) BASIC METABOLIC [id number] 15:13:00 Test Item Value Reference Range Interpretation [...] NOT APPLICABLE FOR DIALYSIS PATIEN TS. PROTHROMBIN [id number] 14:49:00 Test Item Value Reference Range Interpretation [...] mechanical heart valves.CBC W/PLT COUNT & AUTO [id number] 14:44:00 Test Item Value Reference Range Interpretation [...] = 2801) BODY FLUID CULTURE + GRAM [id number] 14:43:00 Test Item Value Reference Interpretation Comments [...] No organisms seen (BEAKER) (test code = 365429) BLOOD [id number] 12:01:00 Test Item Value Reference Range Interpretation Comments CULTURE (BEAKER) (test No growth in 5 days code = 1095) U/S, [id number] 10:51:00Referring: Dr. Mohsen Og for exam:->ascitesFINAL REPORT Ultrasound guided paracentesis. Clinical History: Ascites. Sedation: None. Manufacturing Engineer Automotive: Cindy Payton PA-C Network Field Engineer: None. Estimated Blood Loss: < 1 cc. [...] was achieved with 2% lidocaine, a 5 Norwegian one-step catheter was advanced into the peritoneal cavity under ultrasound guidance. After completion of drainage, the catheter was removed. There was no evidence of complication. Impression:Successful ultrasound guided paracentesis. Signed: Gagandeep Kaur Verified Date/Time: 05/04/2019 10:51:19 Reading Location: [address] Ultrasound Reading Room POCT- GLUCOSE [id number] 11:52:00 Test Item Value Reference Range Interpretation Comments POC-GLUCOSE METER 155 mg/dL 70-110 H TESTED AT [place] [address] ([facility]) (test code = [facility] 1538) [address] POCT-GLUCOSE [id number] 08:32:00 Test Item Value Reference Range Interpretation Comments POC-GLUCOSE METER 145 mg/dL 70-[address] [facility] 6720 ([facility]) (test code = [facility] 1538) [address] HEPATIC FUNCTION [id number] 07:18:00 Test Item Value Reference Range Interpretation Comments TOTAL PROTEIN ([facility]) (test code = 7.1 gm/dL 6.0-8.3 770) ALBUMIN ([facility]) (test code = 1145) 3.1 g/dL 3.5-5.0 L BILIRUBIN TOTAL (BEAKER) (test code 0.6 mg/dL 0.2-1.2 = 377) BILIRUBIN DIRECT (BEAKER) (test 0.4 mg/dL 0.1-0.5 code = 706) ALKALINE PHOSPHATASE (BEAKER) (test 107 U/L 40-150 code = 346) AST (SGOT) (BEAKER) (test code = 28 U/L 5-34 353) ALT (SGPT) (BEAKER) (test code = 14 U/L 6-55 347) BASIC METABOLIC [id number] 07:18:00 Test Item Value Reference Range Interpretation [...] NOT APPLICABLE FOR DIALYSIS PATIEN TS. PROTHROMBIN [id number] 06:33:00 Test Item Value Reference Range Interpretation [...] mechanical heart valves.CBC W/PLT COUNT & AUTO [id number] 06:11:00 Test Item Value Reference Range Interpretation [...] EOSINOPHILS ABSOLUTE COUNT 0.06 K/ L 0.04-0.36 (MALU) (test code = 416) BASOPHILS ABSOLUTE COUNT (MALU) 0.02 K/ L 0.01-0.08 (test code = 417) IMMATURE GRANULOCYTES-RELATIVE 0 % 0-1 PERCENT (MALU) (test code = 2801) POCT-GLUCOSE [id number] 21:34:00 Test Item Value Reference Range Interpretation Comments POC-GLUCOSE METER 230 mg/dL 70-[address] [facility] 6720 (MALU) (test code = [facility] [place] 1538) [address] U/S, ABDOMINAL, [id number] 20:56:00Referring: Dr. Mohsen Whitt do with dopplerReason for exam:->ascites, abdominal painFINAL [...] further evaluation if indicated clinically. Signed: Marnie Aguilareport Verified Date/Time: 04/30/2019 20:56:22 Reading Location: [facility] Diagnostic Imaging Reading Room - [place] [address] POCT-GLUCOSE [id number] 15:26:00 Test Item Value Reference Range Interpretation Comments POC-GLUCOSE METER 97 mg/dL 70-110 TESTED AT [place] [address] (BEAKER) (test code = [facility] [address] 1538) BODY FLUID CELL COUNT WITH [id number] 15:01:00 Test Item Value Reference Range Interpretation [...] EDTA Tube (test code = 2873) POCT-GLUCOSE [id number] 09:12:00 Test Item Value Reference Range Interpretation Comments POC-GLUCOSE METER 136 mg/dL 70-[address] [facility] 6720 (BEAKER) (test code = [facility] [place] 1538) [address] CBC W/PLT COUNT & AUTO [id number] 07:19:00 Test Item Value Reference Range Interpretation [...] % 0-1 PERCENT (BEAKER) (test code = 2800) BASIC METABOLIC [id number] 06:37:00 Test Item Value Reference Range Interpretation [...] NOT APPLICABLE FOR DIALYSIS PATIEN TS. PROTHROMBIN [id number] 06:09:00 Test Item Value Reference Range Interpretation [...] is2.5-3.5 for patients wiht mechanical heart valves.POCT-GLUCOSE [id number] 22:27:00 Test Item Value Reference Range Interpretation Comments POC-GLUCOSE METER 169 mg/dL 70-[address] [facility] 6720 (BEAKER) (test code = [facility] [place] 1538) [address] POCT-GLUCOSE [id number] 16:45:00 Test Item Value Reference Range Interpretation Comments POC-GLUCOSE METER 183 mg/dL 70-[address] [facility] 6720 (BEAKER) (test code = [facility] [place] 1538) [address] BASIC METABOLIC [id number] 16:33:00 Test Item Value Reference Range Interpretation Comments SODIUM (BEAKER) 136 meq/L 136-145 (test code = 381) POTASSIUM (BEAKER) 4.2 meq/L 3.5-5.1 (test code = 379) CHLORIDE (BEAKER) 105 meq/L 98-107 (test code = 382) CO2 (BEAKER) (test 23 meq/L 22-29 code = 355) BLOOD UREA NITROGEN 16 [...] PATIEN TS. CBC W/PLT COUNT & AUTO [id number] 16:25:00 Test Item Value Reference Range Interpretation [...] PERCENT (BEAKER) (test code = 2801) POCT-GLUCOSE [id number] 11:54:00 Test Item Value Reference Range Interpretation Comments POC-GLUCOSE METER 213 mg/dL 70-110 H TESTED AT [place] [address] ([facility]) ([facility] 1538) [address] POCT-GLUCOSE [id number] 08:55:00 Test Item Value Reference Range Interpretation Comments POC-GLUCOSE METER 96 mg/dL 70-[address] [facility] 6720 ([facility]) (test code = [facility] [address] 1538) ALKALINE [id number] 21:56:00 Test Item Value Reference Range Interpretation Comments ALKALINE PHOSPHATASE (BEAKER) (test 145 U/L 40-150 code = 346) [id number] 21:56:00 Test Item Value Reference Range Interpretation Comments LIPASE (BEAKER) (test code = 749) 36 U/L 8-78 ALT (SGPT)2019-04-28 21:56:00 Test Item Value Reference Range Interpretation Comments ALT (SGPT) (BEAKER) (test code = 347) 14 U/L 6-55 AST (SGOT)2019-04-28 21:56:00 Test Item Value Reference Range Interpretation Comments AST (SGOT) (BEAKER) (test code = 353) 23 U/L 5-34 BASIC METABOLIC [id number] 21:56:00 Test Item Value Reference Range Interpretation [...] APPLICABLE FOR DIALYSIS PATIEN TS. BILIRUBIN, ADULT [id number] 21:56:00 Test Item Value Reference Range Interpretation Comments BILIRUBIN TOTAL (BEAKER) (test code 0.8 mg/dL 0.2-1.2 = 377) [id number] 21:49:00 Test Item Value Reference Range Interpretation [...] mechanical heart valves.CBC W/PLT COUNT & AUTO [id number] 21:42:00 Test Item Value Reference Range Interpretation [...] PERCENT (BEAKER) (test code = 2801) U/S, [id number] 18:05:00Referring: Dr. Mohsen Josephinister 200 mL of albumin [...] MDReport Verified Date/Time: 04/09/2019 18:05:54 Reading Location: [facility] [address] [place] [address] Reading Room MR, ABDOMEN, [id number] 15:38:00Referring: Dr. Mohsen Downs Abdominal VesselsFINAL REPORT [...] MDReport Verified Date/Time: 04/09/2019 15:38:52 Reading Location: [facility] C[facility] Body Reading Room MR, PELVIS, [id number] 15:38:00Referring: Dr. Connolly [facility]CH[facility]: MRI of the abdomen [...] MDReport Verified Date/Time: 04/09/2019 15:38:52 Reading Location: [facility] B1 C013Y CT Body Reading Room BODY FLUID CELL COUNT WITH [id number] 13:46:00 Test Item Value Reference Range Interpretation [...] Tube (test code = 2873) BLOOD GAS, [id number] 10:09:00 Test Item Value Reference Range Interpretation [...] = 1819) 21.0 % C. DIFFICILE GDH [id number] 18:16:00 Test Item Value Reference Range Interpretation Comments CDT TOXIN (test code Negative Negative = [id number]) CDT GDH ANTIGEN (test Negative Negative No ind ication of code = 0087344463) Clostridi um difficile infection and n o colonization. Discontinue ent kayla isolation and t herapy. Testing performed by [employer] Rapid Cassette Assay. For GDH, published sensitivity of the assay is 98.7% compared to cytotoxicity testing. For Toxin AB, published sensitivity is 87.8% and specificity 99.4% compared to cytotoxicity testing.Verification of kit performance was done by the [facility] Microbiology Lab prior to clinical use.COMPREHENSIVE METABOLIC [id number] 13:42:00 Test Item Value Reference Range Interpretation [...] NOT APPLICABLE FOR DIALYSIS PATIEN TS. BILIRUBIN, [id number] 13:42:00 Test Item Value Reference Range Interpretation Comments BILIRUBIN DIRECT (BEAKER) (test 0.9 mg/dL 0.1-0.5 H code = 706) CBC W/PLT COUNT & AUTO [id number] 13:24:00 Test Item Value Reference Range Interpretation [...] PERCENT (BEAKER) (test code = 2801) PROTHROMBIN [id number] 13:21:00 Test Item Value Reference Range Interpretation Comments PROTIME (BEAKER) (test code = 17.2 seconds 11.7-14.7 H 759) INR (BEAKER) (test code = 370) 1.5 <=5.9 RECOMMENDED COUMADIN/WARFARIN INR THERAPY RANGESSTANDARD DOSE: 2.0 - 3.0 Includes: PROPHYLAXIS forvenous thrombosis, systemic embolization; TREATMENT for venous thrombosis and/or pulmonary embolus.HIGH RISK: Target INR is 2.5-3.5 for patients with mechanical heart valves.TISSUE [id number] 14:09:00Surgical Pathology Report Case: [id number] Authorizing Provider: Jose Alfredo Golden Aba, MD Collected: 02/17/2019 1650 Ordering Location: [facility] Received: 02/18/2019 0802 PERIOPERATIVE SERVICES Pathologist: Maricruz Nixon MD Specimens: [...] WITH HERNIA SACSigning Pathologist Direct Phone Line: [phone] signed by Maricruz Nixon MD on 03/01/2019 at 2:09 [id number], [id number] diagnosis: Umbilical hernia Postoperative diagnosis: umbilical hernia [...] margin. The undersurface displays diffuse fibromembranous saccular tissue.Conveyor Loader sections are submitted from the specimen.Section code: Conveyor Loader sections are submitted in cassettes A1-A2 with the ulceration submitted in A1, and only the saccular wall was submitted in A2.Part B. Received in formalin labeled "hernia sac, umbilical" is a fibromembranous saccular tissue measuring 9.5 x 5 x 0.8 cm.One surface is pratt-pink, hyperemic and smooth, and the opposite surface displays lobulated attached fat. Conveyor Loader sections are submitted in cassette B1. TAMELA/Lonformed.HEMOGLOBIN AND [id number] 20:22:00 Test Item Value Reference Range Interpretation Comments HEMOGLOBIN (BEAKER) (test code = 8.5 GM/DL 11.2-15.7 L 410) HEMATOCRIT (BEAKER) (test code = 27.4 % 34.1-44.9 L 411) Post transfusionPOCT-GLUCOSE [id number] 18:19:00 Test Item Value Reference Range Interpretation Comments POC-GLUCOSE METER 145 mg/dL 70-110 H TESTED AT [place] [address] [facility] (test code = [facility] 1538) [address] POCT-GLUCOSE [id number] 08:37:00 Test Item Value Reference Range Interpretation Comments POC-GLUCOSE METER 119 mg/dL 70-110 H TESTED AT [place] [address] ([facility]) (test code = [facility] 1538) [address] HEPATIC FUNCTION [id number] 07:34:00 Test Item Value Reference Range Interpretation Comments TOTAL PROTEIN (BEAKER) (test code = 6.9 gm/dL 6.0-8.3 770) [...] code = < U/L 6-55 L 347) [id number] 07:18:00 Test Item Value Reference Range Interpretation Comments PHOSPHORUS (BEAKER) (test code = 2.1 mg/dL 2.3-4.7 L 604) [id number] 07:18:00 Test Item Value Reference Range Interpretation Comments MAGNESIUM (BEAKER) (test code = 2.0 mg/dL 1.6-2.6 627) BASIC METABOLIC [id number] 07:18:00 Test Item Value Reference Range Interpretation [...] NOT APPLICABLE FOR DIALYSIS PATIEN TS. PROTHROMBIN [id number] 06:49:00 Test Item Value Reference Range Interpretation Comments PROTIME (BEAKER) (test code = 18.1 seconds 11.7-14.7 H 759) INR (BEAKER) (test code = 370) 1.5 <=5.9 RECOMMENDED COUMADIN/WARFARIN INR THERAPY RANGESSTANDARD DOSE: 2.0 - 3.0 Includes: PROPHYLAXIS forvenous thrombosis, systemic embolization; TREATMENT for venous thrombosis and/or pulmonary embolus.HIGH RISK: Target INR is 2.5-3.5 for patients with mechanical heart valves.[id number] 06:49:00 Test Item Value Reference Range Interpretation Comments PARTIAL THROMBOPLASTIN TIME 45.8 seconds 22.5-36.0 H (BEAKER) (test code = 760) CBC W/PLT COUNT & AUTO [id number] 06:34:00 Test Item Value Reference Range Interpretation [...] PERCENT (BEAKER) (test code = 2801) POCT-GLUCOSE [id number] 22:02:00 Test Item Value Reference Range Interpretation Comments POC-GLUCOSE METER 155 mg/dL 70-[address] [facility] 6720 (BEAKER) (test code = [facility] [place] 1538) [address] POCT-GLUCOSE [id number] 17:36:00 Test Item Value Reference Range Interpretation Comments POC-GLUCOSE METER 149 mg/dL 70-[address] [facility] 6720 (BEAKER) (test code = [facility] 1538) [address] POCT-GLUCOSE [id number] 12:17:00 Test Item Value Reference Range Interpretation Comments POC-GLUCOSE METER 170 mg/dL 70-110 H TESTED AT [place] [address] (BEAKER) (test code = [facility] 1538) [address] HEPATIC FUNCTION [id number] 12:02:00 Test Item Value Reference Range Interpretation [...] = < U/L 6-55 L 347) POCT-GLUCOSE [id number] 08:33:00 Test Item Value Reference Range Interpretation Comments POC-GLUCOSE METER 170 mg/dL 70-[address] [facility] 6720 (BEAKER) (test code = [facility] 1538) [address] [id number] 07:41:00 Test Item Value Reference Range Interpretation Comments PHOSPHORUS (BEAKER) (test code = 2.5 mg/dL 2.3-4.7 604) [id number] 07:41:00 Test Item Value Reference Range Interpretation Comments MAGNESIUM (BEAKER) (test code = 1.9 mg/dL 1.6-2.6 627) BASIC METABOLIC [id number] 07:41:00 Test Item Value Reference Range Interpretation [...] PATIEN TS. CBC W/PLT COUNT & AUTO [id number] 06:59:00 Test Item Value Reference Range Interpretation [...] 0-1 PERCENT (BEAKER) (test code = 2801) [id number] 06:40:00 Test Item Value Reference Range Interpretation Comments PARTIAL THROMBOPLASTIN TIME 48.5 seconds 22.5-36.0 H (BEAKER) (test code = 760) PROTHROMBIN [id number] 06:39:00 Test Item Value Reference Range Interpretation Comments PROTIME (BEAKER) (test code = 18.9 seconds 11.7-14.7 H 759) INR (BEAKER) (test code = 370) 1.6 <=5.9 RECOMMENDED COUMADIN/WARFARIN INR THERAPY RANGESSTANDARD DOSE: 2.0 - 3.0 Includes: PROPHYLAXIS forvenous thrombosis, systemic embolization; TREATMENT for venous thrombosis and/or pulmonary embolus.HIGH RISK: Target INR is 2.5-3.5 for patients with mechanical heart valves.POCT-GLUCOSE [id number] 11:47:00 Test Item Value Reference Range Interpretation Comments POC-GLUCOSE METER 199 mg/dL 70-[address] [facility] 6782 ([facility]) (test code = [facility] [place] 1538) [address] POCT-GLUCOSE [id number] 08:19:00 Test Item Value Reference Range Interpretation Comments POC-GLUCOSE METER 135 mg/dL 70-[address] [facility] 6720 (BEAKER) (test code = [facility] [place] 1538) [address] [id number] 04:22:00 Test Item Value Reference Range Interpretation Comments PHOSPHORUS (BEAKER) (test code = 2.8 mg/dL 2.3-4.7 604) [id number] 04:22:00 Test Item Value Reference Range Interpretation Comments MAGNESIUM (BEAKER) (test code = 2.0 mg/dL 1.6-2.6 627) BASIC METABOLIC [id number] 04:22:00 Test Item Value Reference Range Interpretation [...] APPLICABLE FOR DIALYSIS PATIEN TS. HEPATIC FUNCTION [id number] 04:22:00 Test Item Value Reference Range Interpretation [...] (test code = 11 U/L 6-55 347) [id number] 04:17:00 Test Item Value Reference Range Interpretation Comments PARTIAL THROMBOPLASTIN TIME 44.5 seconds 22.5-36.0 H (BEAKER) (test code = 760) PROTHROMBIN [id number] 04:16:00 Test Item Value Reference Range Interpretation [...] PERCENT (BEAKER) (test code = 2801) POCT-GLUCOSE [id number] 22:59:00 Test Item Value Reference Range Interpretation Comments POC-GLUCOSE METER 145 mg/dL 70-110 H TESTED AT [place] [address] ([facility]) (test code = [facility] 1538) [address] POCT-GLUCOSE [id number] 22:50:00 Test Item Value Reference Range Interpretation Comments POC-GLUCOSE METER 158 mg/dL 70-110 H TESTED AT [place] [address] ([facility]) (test code = [facility] 1538) [address] POCT-GLUCOSE [id number] 11:26:00 Test Item Value Reference Range Interpretation Comments POC-GLUCOSE METER 175 mg/dL 70-110 H TESTED AT [place] [address] ([facility]) (test code = [facility] 1538) [address] RAD, CHEST, 1 VIEW, NON [id number] 08:49:00Referring: Dr. Mohsen Padron for exam:->PostopShould this [...] House MDReportVerified Date/Time: 02/18/2019 08:49:26 Reading Location: [facility] Radiology Reading Room POCT-GLUCOSE [id number] 08:00:00 Test Item Value Reference Range Interpretation Comments POC-GLUCOSE METER 133 mg/dL 70-[address] [facility] 6720 (BEAKER) (test code = [facility] 1538) [address] HEPATIC FUNCTION [id number] 04:58:00 Test Item Value Reference Range Interpretation [...] (test code = 14 U/L 6-55 347) [id number] 04:32:00 Test Item Value Reference Range Interpretation Comments PARTIAL THROMBOPLASTIN TIME 40.2 seconds 22.5-36.0 H (BEAKER) (test code = 760) PROTHROMBIN [id number] 04:31:00 Test Item Value Reference Range Interpretation Comments PROTIME (BEAKER) (test code = 17.5 seconds 11.7-14.7 H 759) INR (BEAKER) (test code = 370) 1.4 <=5.9 RECOMMENDED COUMADIN/WARFARIN INR THERAPY RANGESSTANDARD DOSE: 2.0 - 3.0 Includes: PROPHYLAXIS forvenous thrombosis, systemic embolization; TREATMENT for venous thrombosis and/or pulmonary embolus.HIGH RISK: Target INR is 2.5-3.5 for patients with mechanical heart valves.[id number] 04:30:00 Test Item Value Reference Range Interpretation Comments PHOSPHORUS (BEAKER) (test code = 3.6 mg/dL 2.3-4.7 604) [id number] 04:30:00 Test Item Value Reference Range Interpretation Comments MAGNESIUM (BEAKER) (test code = 1.9 mg/dL 1.6-2.6 627) BASIC METABOLIC [id number] 04:30:00 Test Item Value Reference Range Interpretation [...] PATIEN TS. CBC W/PLT COUNT & AUTO [id number] 04:14:00 Test Item Value Reference Range Interpretation [...] PERCENT (BEAKER) (test code = 2801) POCT-GLUCOSE [id number] 21:43:00 Test Item Value Reference Range Interpretation Comments POC-GLUCOSE METER 156 mg/dL 70-[address] [facility] 6720 (BEAKER) (test code = [facility] [place] 1538) [address] [id number] 21:01:00 Test Item Value Reference Range Interpretation Comments MAGNESIUM (BEAKER) (test code = 1.8 mg/dL 1.6-2.6 627) BASIC METABOLIC [id number] 21:01:00 Test Item Value Reference Range Interpretation [...] APPLICABLE FOR DIALYSIS PATIEN TS. HEPATIC FUNCTION [id number] 21:01:00 Test Item Value Reference Range Interpretation [...] (test code = 9 U/L 6-55 347) [id number] 21:00:00 Test Item Value Reference Range Interpretation Comments PHOSPHORUS (BEAKER) (test code = 3.3 mg/dL 2.3-4.7 604) CBC W/PLT COUNT & AUTO [id number] 20:50:00 Test Item Value Reference Range Interpretation [...] (BEAKER) (test code = 2801) HEPATIC FUNCTION [id number] 18:43:00 Test Item Value Reference Range Interpretation [...] (test code = 8 U/L 6-55 347) [id number] 18:40:00 Test Item Value Reference Range Interpretation Comments PARTIAL THROMBOPLASTIN TIME 37.9 seconds 22.5-36.0 H (BEAKER) (test code = 760) PROTHROMBIN [id number] 18:39:00 Test Item Value Reference Range Interpretation Comments PROTIME (BEAKER) (test code = 17.0 seconds 11.7-14.7 H 759) INR (BEAKER) (test code = 370) 1.4 <=5.9 RECOMMENDED COUMADIN/WARFARIN INR THERAPY RANGESSTANDARD DOSE: 2.0 - 3.0 Includes: PROPHYLAXIS forvenous thrombosis, systemic embolization; TREATMENT for venous thrombosis and/or pulmonary embolus.HIGH RISK: Target INR is 2.5-3.5 for patients with mechanical heart valves.POCT-GLUCOSE [id number] 18:33:00 Test Item Value Reference Range Interpretation Comments POC-GLUCOSE METER 178 mg/dL 70-[address] [facility] 6720 ([facility]) (test code = [place] 1538) [address] CBC W/PLT COUNT & AUTO [id number] 18:27:00 Test Item Value Reference Range Interpretation [...] (BEAKER) (test code = 2801) HEPATIC FUNCTION [id number] 13:07:00 Test Item Value Reference Range Interpretation [...] = 8 U/L 6-55 347) BASIC METABOLIC [id number] 13:07:00 Test Item Value Reference Range Interpretation [...] PATIEN TS. CBC W/PLT COUNT & AUTO [id number] 12:55:00 Test Item Value Reference Range Interpretation [...] PERCENT (BEAKER) (test code = 2801) PROTHROMBIN [id number] 12:54:00 Test Item Value Reference Range Interpretation Comments PROTIME (BEAKER) (test code = 17.4 seconds 11.7-14.7 H 759) INR (MALU) (test code = 370) 1.4 <=5.9 RECOMMENDED COUMADIN/WARFARIN INR THERAPY RANGESSTANDARD DOSE: 2.0 - 3.0 Includes: PROPHYLAXIS forvenous thrombosis, systemic embolization; TREATMENT for venous thrombosis and/or pulmonary embolus.HIGH RISK: Target INR is 2.5-3.5 for patients with mechanical heart valves.POCT-GLUCOSE [id number] 12:34:00 Test Item Value Reference Range Interpretation Comments POC-GLUCOSE METER 181 mg/dL 70-[address] [facility] 6720 ([facility]) (test code = [place] 1538) [address] CT, CHEST, WITH HIGH RESOLUTION, INTERSTITAL LUNG [id number] 11:08:00 Referring: Dr. Mohsen Padron for exam:->assess [...] effusion. Signed: Cookie Zurita MDReport Verified Date/Time: 02/17/2019 11:08:22 Reading Location: [facility] B1 C013Y CT Body Reading Room BODY FLUID CULTURE + GRAM STAIN 2019-02-17 09:30:00 Test Item Value Reference Range Interpretation Comments CULTURE (BEAKER) (test code No growth = 1095) GRAM STAIN RESULT (BEAKER) 1+ WBCs (test code = 1123) GRAM STAIN RESULT (BEAKER) No organisms seen (test code = 93138) POCT-GLUCOSE [id number] 09:10:00 Test Item Value Reference Range Interpretation Comments POC-GLUCOSE METER 150 mg/dL 70-[address] [facility] 67 ([facility]) (test code = [employer] [facility] 1538) [address] POCT-GLUCOSE [id number] 21:56:00 Test Item Value Reference Range Interpretation Comments POC-GLUCOSE METER 165 mg/dL 70-[address] [facility] 6720 ([facility]) (test code = [employer] [place] 1538) [address] POCT-GLUCOSE [id number] 17:59:00 Test Item Value Reference Range Interpretation Comments POC-GLUCOSE METER 124 mg/dL 70-110 H TESTED AT [place] [address] ([facility]) (test code = [employer] [facility] 1538) [address] POCT-GLUCOSE [id number] 12:30:00 Test Item Value Reference Range Interpretation Comments POC-GLUCOSE METER 140 mg/dL 70-110 H TESTED AT [place] [address] ([facility]) (test code = [employer] [facility] 1538) [address] RAD, CHEST, 1 VIEW, NON [id number] 11:50:00Referring: Dr. Mohsen Padron for exam:->pre op [...] MDReport Verified Date/Time: 02/16/2019 11:50:43 Reading Location: [facility] C013Y CT Body ReadingRoom COMPREHENSIVE METABOLIC [id number] 09:21:00 Test Item Value Reference Range Interpretation [...] NOT APPLICABLE FOR DIALYSIS PATIEN TS. POCT-GLUCOSE [id number] 08:26:00 Test Item Value Reference Range Interpretation Comments POC-GLUCOSE METER 140 mg/dL 70-[address] [facility] 6720 ([facility]) (test code = [place] 1538) [address] PROTHROMBIN [id number] 07:11:00 Test Item Value Reference Range Interpretation [...] PERCENT (BEAKER) (test code = 2801) POCT-GLUCOSE [id number] 21:10:00 Test Item Value Reference Range Interpretation Comments POC-GLUCOSE METER 172 mg/dL 70-110 H TESTED AT [place] [address] ([facility]) (test code = [facility] 1538) [address] POCT-GLUCOSE [id number] 12:41:00 Test Item Value Reference Range Interpretation Comments POC-GLUCOSE METER 229 mg/dL 70-110 H TESTED AT [place] [address] ([facility]) (test code = [facility] 1538) [address] POCT-GLUCOSE [id number] 09:17:00 Test Item Value Reference Range Interpretation Comments POC-GLUCOSE METER 162 mg/dL 70-110 H [facility] AT [place] [address] [facility] (test code = [facility] 1538) [address] CBC W/PLT COUNT & AUTO [id number] 07:41:00 Test Item Value Reference Range Interpretation [...] code = 2801) URINALYSIS WITH MICROSCOPIC IF [id number] 03:00:00 Test Item Value Reference Range Interpretation [...] code = 463) SOURCE(BEAKER) (test code = 2795) POCT-GLUCOSE [id number] 21:06:00 Test Item Value Reference Range Interpretation Comments POC-GLUCOSE METER 194 mg/dL 70-110 H TESTED AT [place] [address] (BEAKER) (test code = [facility] 1538) [address] POCT-GLUCOSE [id number] 17:58:00 Test Item Value Reference Range Interpretation Comments POC-GLUCOSE METER 164 mg/dL 70-110 H TESTED AT [place] [address] ([facility] (test code = [facility] 1538) [address] BODY FLUID CELL COUNT WITH [id number] 14:39:00 Test Item Value Reference Range Interpretation [...] EDTA Tube (test code = 2873) U/S, [id number] 10:10:00Referring: Dr. Mohsen Padron for exam:->ascitesFINAL REPORT [...] 1% lidocaine anesthesia was administered. A 5 Norwegian catheter was advanced into the peritoneal cavity and 1100 mL of clear yellow fluid was removed. The catheter was removed without immediate complication. Samples were sent for analysis. IMPRESSION: Uncomplicated ultrasound-guided paracentesis with 1100 mL fluid removed. Signed: Jeb Lopez MDReport Verified Date/Time: 02/14/2019 10:10:02 Reading Location: [address] Ultrasound Reading Room POCT-GLUCOSE [id number] 08:18:00 Test Item Value Reference Range Interpretation Comments POC-GLUCOSE METER 154 mg/dL 70-[address] [facility] 6720 (BEAKER) (test code = [facility] 1538) [address] HEPATIC FUNCTION [id number] 07:08:00 Test Item Value Reference Range Interpretation [...] = 6 U/L 6-55 347) BASIC METABOLIC [id number] 07:08:00 Test Item Value Reference Range Interpretation [...] NOT APPLICABLE FOR DIALYSIS PATIEN TS. PROTHROMBIN [id number] 06:49:00 Test Item Value Reference Range Interpretation [...] PERCENT (BEAKER) (test code = 2801) POCT-GLUCOSE [id number] 22:22:00 Test Item Value Reference Range Interpretation Comments POC-GLUCOSE METER 243 mg/dL 70-[address] [facility] 6720 (BEAKER) (test code = [place] 1538) [address] [id number] 15:01:00 Test Item Value Reference Range Interpretation Comments MAGNESIUM (BEAKER) (test code = 2.0 mg/dL 1.6-2.6 627) COMPREHENSIVE METABOLIC [id number] 15:01:00 Test Item Value Reference Range Interpretation [...] S NOT APPLICABLE FOR DIALYSIS PATIEN TS. [id number] 15:01:00 Test Item Value Reference Range Interpretation Comments LIPASE (BEAKER) (test code = 749) 31 U/L 8-78 PT/[id number] 14:52:00 Test Item Value Reference Range Interpretation [...] 0-0 (test code = 413) COMPREHENSIVE METABOLIC [id number] 09:49:00 Test Item Value Reference Range Interpretation [...] = 413) BODY FLUID CULTURE + GRAM [id number] 10:19:00 Test Item Value Reference Range Interpretation Comments CULTURE (BEAKER) (test code No growth = 1095) GRAM STAIN RESULT (BEAKER) <1+ WBCs (test code = 1123) GRAM STAIN RESULT (BEAKER) No organisms seen (test code = 72680) U/S, ABDOMINAL, [id number] 22:44:00Referring: Dr. Mohsen Padron for Exam:->pretranslant evaluation, [...] recent MRI of the abdomen. Signed: Mell Miguel MDReport V erified Date/Time: 11/28/2018 22:44:50 Reading Location: [address] Reading Room BODY FLUID CELL COUNT WITH [id number] 22:25:00 Test Item Value Reference Range Interpretation [...] EDTA Tube (test code = 2873) U/S, [id number] 20:53:00Referring: Dr. Mohsen SweattAdminister 200 mL of albumin 25% (50 grams) [...] 1% lidocaine anesthesia was administered. A 5 Norwegian catheter was advanced into the peritoneal cavity. The bowel was very active, and care was taken not to advance the needle when bowel was immediately adjacent to the needle. After the initial stick, approximately 300 mL of fluid was returned, but intermittently the bowel would obstruct the catheter. Therefore, this catheter was removed,and a second 5 Norwegian catheter was inserted. 1250 mL of clear yellow fluid was removed in total. Thecatheter was removed without immediate complication. Samples were sent for analysis. IMPRESSION:Uncomplicated ultrasound-guided paracentesis with 1250 mL of fluid removed. Signed: Jeb Lopez Verified Date/Time: 11/28/2018 20:53:26 Reading Location: [address] Ultrasound Reading Room RAD, CHEST, 2 VIEWS [...] Houseeport Verified Date/Time: 11/28/2018 15:18:25 Reading Location: [facility] Radiology Reading Room [id number] 14:48:00 Test Item Value Reference Range Interpretation [...] 2.5-3.5 for patients with mechanical heart valves.PLATELET [id number] 14:39:00 Test Item Value Reference Range Interpretation Comments PLATELET COUNT (BEAKER) (test code 87 K/CU MM 150-450 L = 756) URINALYSIS W/ REFLEX URINE [id number] 13:37:00 Test Item Value Reference Range Interpretation [...] code = 516) SOURCE(BEAKER) (test code = 0851) MR, ABDOMEN, [id number] 15:37:00Referring: Dr. Mohsen MullentFINAL REPORT INDICATION:68-year-old female with cirrhosis. Evaluation before [...] vein. Large periumbilical hernia. Signed: Cookie Zurita MDReport Verified Date/Time: 10/10/2018 15:37:48 Reading Location: [address] Consult Reading Room Electronically signed by: COOKIE ZURITA M.D. on 2017 03:37 PMRAD, BONE DENSITY [id number] 12:55:00Referring: Dr. Mohsen Padron for Exam:->Pretransplant Liver EvaluationFINAL REPORT RAD, BONE DENSITY STUDY CLINICAL HISTORY: Pretransplant Liver Jieoma luation COMPARISON: None FINDINGS:Bone mineral density measurement:Lumbar spine: 0.895 gm/bh6Kepn femoral neck: 0.715 gm/cm2 Standard deviation from [...] Robert MDReport Verified Date/Time: 10/10/2018 12:55:04Reading Location: [facility] Radiology Reading Room RAD, MANDIBLE, MIN 4 [id number] 12:49:00Referring: Dr. Mohsen Padron for Exam:- >Pretransplant Liver EvaluationFINAL REPORT MANDIBLE History provided: Pretransplant evaluation The patient is partially edentulous. No bony destructive change is seen to specifically indicate abscess. The marilyn ining teeth show no lucency about the roots. Signed: Brent Benson Verified Date/Time: 10/10/2018 12:49:12 Reading Location: [address] Radiology Reading Room RAD, CHEST, 2 [id number] 12:47:00Referring: Dr. Mohsen Padron for Exam:->Pretransplant Liver EvaluationFINAL REPORT CHEST PA AND LATERAL Comparison exam: 09/26/2017 History provided : Pretransplant evaluation Heart size is normal. Right hemidiaphragm is obscured by moderate-sized pleural effusion. Atelectatic change is likely within the right lower lobe. Left lung clear. Normal vascularity. IMPRESSION: Moderately large right pleural effusion. Signed: Brent Benson Verified Date/Time: 10/10/2018 12:47:57 Reading Location: [address] Radiology Reading Room ANTI-NUCLEAR ANTIBODY (PRABHJOT)2018-10-04 13:16:00 Test Item Value Reference Range Interpretation Comments ANTI-NUCLEAR ANTIBODY (PRABHJOT) (BEAKER) Positive Negative A (test code = 418) Test performed by IFA method.PRABHJOT TITER AND [id number] 13:16:00 Test Item Value Reference Range Interpretation Comments PRABHJOT TITER (BEAKER) (test code = :160 1541) PRABHJOT PATTERN (BEAKER) (test code = [employer] 1781) [id number] 10:39:00 Test Item Value Reference Range Interpretation Comments RPR SCREEN (BEAKER) (test code = Nonreactive Nonreactive 420) CYTOMEGALOVIRUS ANTIBODY, [id number] 10:15:00 Test Item Value Reference Range Interpretation Comments CYTOMEGALOVIRUS, IGG (BEAKER) Positive Negative, Equivocal A (test code = 3429) CMV IgG Result Interpretation: </= 0.8 Al Negative 0.9-1.0 Al Equivocal >/=1.1 Al PositiveCYTOMEGALOVIRUS ANTIBODY, [id number] 10:15:00 Test Item Value Reference Range Interpretation Comments CYTOMEGALOVIRUS IGM ANTIBODY Negative Negative, Equivocal (BEAKER) (test code = 6697) CMV IgM Result Interpretation: </= 0.8 Al Negative 0.9-1.0 Al Equivocal >/= 1.1 Al PositiveEBV ANTIBODY, [id number] 10:15:00 Test Item Value Reference Range Interpretation [...] 0.9-1.0 Al Equivocal >/= 1.1 Al PositiveHEMOGLOBIN [id number] 20:56:00 Test Item Value Reference Range Interpretation Comments HEMOGLOBIN A1C (BEAKER) (test code = 9.2 % 4.3-6.1 H 368) [id number] 16:44:00 Test Item Value Reference Range Interpretation Comments FERRITIN (BEAKER) (test code = 361) 33 ng/mL 5-275 HEPATITIS A ANTIBODY, [id number] 16:06:00 Test Item Value Reference Range Interpretation Comments HEPATITIS A IGG ANTIBODY (BEAKER) Reactive Nonreactive A (test code = 2797) HEPATITIS B SURFACE [id number] 16:04:00 Test Item Value Reference Range Interpretation Comments HEPATITIS B SURFACE ANTIBODY < mIU/mL <8.0 (BEAKER) (test code = 647) CARCINOEMBRYONIC ANTIGEN (CEA)2018-10-02 16:03:00 Test Item Value Reference Range Interpretation Comments CARCINOEMBRYONIC ANTIGEN (BEAKER) 3.6 ng/mL 0.0-5.0 (test code = 685) ALPHA FETOPROTEIN (AFP), TUMOR [id number] 16:03:00 Test Item Value Reference Range Interpretation Comments ALPHA-FETOPROTEIN (BEAKER) (test 2.6 ng/mL <10.0 code = 1094) HEPATITIS B CORE ANTIBODY, [id number] 16:03:00 Test Item Value Reference Range Interpretation Comments HEPATITIS B CORE IGM ANTIBODY Nonreactive Nonreactive (BEAKER) (test code = 645) [id number] 16:03:00 Test Item Value Reference Range Interpretation Comments ALPHA-1 ANTITRYPSIN (BEAKER) 184.10 mg/dL 90.00-200.00 (test code = 502) HEPATITIS B SURFACE [id number] 15:59:00 Test Item Value Reference Range Interpretation Comments HEPATITIS B SURFACE ANTIGEN (2) Nonreactive Nonreactive (BEAKER) (test code = 2585) HEPATITIS C [id number] 15:59:00 Test Item Value Reference Range Interpretation Comments HEPATITIS C ANTIBODY (BEAKER) Nonreactive Nonreactive (test code = 367) HEPATITIS B CORE ANTIBODY, [id number] 15:59:00 Test Item Value Reference Range Interpretation Comments HEPATITIS B CORE TOTAL ANTIBODY Nonreactive Nonreactive (BEAKER) (test code = 497) HIV-1 ANTIGEN WITH HIV-1/2 [id number] 15:59:00 Test Item Value Reference Range Interpretation Comments HIV-1 ANTIGEN WITH HIV 1\\T\\2 Nonreactive Nonreactive ANTIBODY (2) (BEAKER) (test code = 2586) VITAMIN D, [id number] 15:59:00 Test Item Value Reference Range Interpretation Comments VITAMIN D 25-OH (BEAKER) (test 13.6 ng/mL 6.6-49.9 code = 2764) Effective 08/22/2017: Reference Range ChangeNew: 6.6-49.9 ng/mL Previous: 13.0-47.8 ng/mLRecommended Vitamin D Target Range: 30.0-40.0 ng/[id number] 15:54:00 Test Item Value Reference Range Interpretation Comments T4 TOTAL (BEAKER) (test code = 895) 6.7 ug/dL 4.9-11.7 [id number] 15:54:00 Test Item Value Reference Range Interpretation Comments THYROID STIMULATING HORMONE 3.97 uIU/mL 0.35-4.94 (BEAKER) (test code = 772) [id number] 15:54:00 Test Item Value Reference Range Interpretation Comments T3 TOTAL (BEAKER) (test code = 656) 85 ng/dL 48-159 SCREEN, [id number] 15:46:00 Test Item Value Reference Range Interpretation Comments TEST URINE (BEAKER) (test Negative code = 583) URINALYSIS W/ [id number] 15:46:00 Test Item Value Reference Range Interpretation [...] = 516) SOURCE(BEAKER) (test code = 2795) [id number] 15:40:00 Test Item Value Reference Range Interpretation [...] 20-55 L (test code = 2590) PROTHROMBIN [id number] 15:39:00 Test Item Value Reference Range Interpretation Comments PROTIME (BEAKER) (test code = 16.1 seconds 11.7-14.7 H 759) INR (BEAKER) (test code = 370) 1.3 <=5.9 RECOMMENDED COUMADIN/WARFARIN INR THERAPY RANGESSTANDARD DOSE: 2.0 - 3.0 Includes: PROPHYLAXIS forvenous thrombosis, systemic embolization; TREATMENT for venous thrombosis and/or pulmonary embolus.HIGH RISK: Target INR is 2.5-3.5 for patients with mechanical heart valves.URIC [id number] 15:38:00 Test Item Value Reference Range Interpretation Comments URIC ACID (BEAKER) (test code = 4.1 mg/dL 2.6-7.2 773) [id number] 15:38:00 Test Item Value Reference Range Interpretation Comments MAGNESIUM (BEAKER) (test code = 1.8 mg/dL 1.6-2.6 627) [id number] 15:38:00 Test Item Value Reference Range Interpretation Comments PHOSPHORUS (BEAKER) (test code = 3.1 mg/dL 2.3-4.7 604) COMPREHENSIVE METABOLIC [id number] 15:38:00 Test Item Value Reference Range Interpretation [...] NOT APPLICABLE FOR DIALYSIS PATIEN TS. LIPID [id number] 15:38:00 Test Item Value Reference Range Interpretation [...] Borderline 130-159 High 160-189 Very High >=190BILIRUBIN, [id number] 15:38:00 Test Item Value Reference Range Interpretation Comments BILIRUBIN DIRECT (BEAKER) (test 0.7 mg/dL 0.1-0.5 H code = 706) GAMMA GLUTAMYL TRANSFERASE (GGT)2018-10-02 15:38:00 Test Item Value Reference Range Interpretation Comments GAMMA GLUTAMYL TRANSFERASE (BEAKER) 26 U/L 9-64 (test code = 364) [id number] 15:35:00 Test Item Value Reference Range Interpretation Comments FIBRINOGEN LEVEL (BEAKER) (test 252 mg/dl 225-434 code = 658) [id number] 15:35:00 Test Item Value Reference Range Interpretation Comments PARTIAL THROMBOPLASTIN TIME 35.1 seconds 22.5-36.0 (BEAKER) (test code = 760) [id number] 15:26:00 Test Item Value Reference Range Interpretation Comments ETHANOL (BEAKER) (test code = 400) < mg/dL <=10 CBC W/PLT COUNT & AUTO [id number] 15:20:00 Test Item Value Reference Range Interpretation [...] PERCENT (BEAKER) (test code = 2801) CALCIUM, [id number] 15:05:00 Test Item Value Reference Range Interpretation Comments CALCIUM IONIZED (BEAKER) (test 1.12 mmol/L 1.12-1.27 code = 698) PH, BLOOD (BEAKER) (test code = 7.39 1810) CT, MAXILLOFACIAL AREA, WO [id number] 09:11:00Referring: Dr. Mohsen Padron for exam:->FALLin parking [...] intracranial abnormality. Signed: JR De Anda Robert [facility] Verified Date/Time: 10/02/2018 09:11:30 Reading Location: [address] Neuro Reading Room CT, BRAIN, WITHOUT [id number] 09:02:00Referring: Dr. Mohsen Padron for exam:->FALLin parking [...] Robert MDReportVerified Date/Time: 10/02/2018 09:02:30 Reading Location: [address] Neuro Reading Room RAD, KNEE, 3 VIEWS, [id number] 08:59:00Referring: Dr. Mohsen Gastelum Reason for exam:->FALL in parking garageFINAL REPORT Right knee, 10/02/2018 Four views of the right knee disclose no e vidence of displaced fracture or dislocation. A knee effusion is suggested. There is minor sharpening of the lateral tibial spine consistent with minimal degenerative change. No further osseous abnormalities are identified. Signed: Elida Verasort Verified Date/Time: 10/02/2018 08:59:15 Reading Location: [facility] Diagnostic Imaging Reading Room - [facility] F1 1.310.12 MR, ABDOMEN, [id number] 16:04:00Referring: Dr. Mohsen Estrellairraida assess for HCCFINAL REPORT TECHNIQUE: MRI of [...] MDReport Verified Date/Time: 09/13/2018 16:04:39 Reading Location: [address] Ultrasound Reading Room [id number] 12:33:00 Test Item Value Reference Range Interpretation Comments POC-CREATININE 1.1 mg/dL 0.6-1.3 TESTED AT [place] [address] (BEAKER) (test [place] code = 1859) [address] POC-EGFR (BEAKER) 49 mL/min/1.73M2 (test code = 1860) ALPHA FETOPROTEIN (AFP), TUMOR [id number] 13:45:00 Test Item Value Reference Range Interpretation Comments ALPHA-FETOPROTEIN (BEAKER) (test 2.7 ng/mL <10.0 code = 1094) BASIC METABOLIC [id number] 13:24:00 Test Item Value Reference Range Interpretation [...] APPLICABLE FOR DIALYSIS PATIEN TS. HEPATIC FUNCTION [id number] 12:48:00 Test Item Value Reference Range Interpretation [...] 6-55 347) CBC W/PLT COUNT & AUTO [id number] 12:36:00 Test Item Value Reference Range Interpretation [...] PERCENT (BEAKER) (test code = 2801) PROTHROMBIN [id number] 12:32:00 Test Item Value Reference Range Interpretation Comments PROTIME (BEAKER) (test code = 15.9 seconds 11.7-14.7 H 759) INR (BEAKER) (test code = 370) 1.3 <=5.9 RECOMMENDED COUMADIN/WARFARIN INR THERAPY RANGESSTANDARD DOSE: 2.0 - 3.0 Includes: PROPHYLAXIS forvenous thrombosis, systemic embolization; TREATMENT for venous thrombosis and/or pulmonary embolus.HIGH RISK: Target INR is 2.5-3.5 for patients with mechanical heart valves.[id number] 11:00:00 Test Item Value Reference Range Interpretation Comments FERRITIN (BEAKER) (test code = 361) 34 ng/mL 5-275 HEPATIC FUNCTION [id number] 10:44:00 Test Item Value Reference Range Interpretation [...] = 16 U/L 6-55 347) BASIC METABOLIC [id number] 10:44:00 Test Item Value Reference Range Interpretation [...] = 2590) CBC W/PLT COUNT & AUTO [id number] 10:26:00 Test Item Value Reference Range Interpretation [...] PERCENT (BEAKER) (test code = 2801) PROTHROMBIN [id number] 10:19:00 Test Item Value Reference Range Interpretation Comments PROTIME (BEAKER) (test code = 15.6 seconds 11.7-14.7 H 759) INR (BEAKER) (test code = 370) 1.3 <=5.9 RECOMMENDED COUMADIN/WARFARIN INR THERAPY RANGESSTANDARD DOSE: 2.0 - 3.0 Includes: PROPHYLAXIS forvenous thrombosis, systemic embolization; TREATMENT for venous thrombosis and/or pulmonary embolus.HIGH RISK: Target INR is 2.5-3.5 for patients with mechanical heart valves.RAD, CHEST, 2 [id number] 09:58:00 Reason for Exam:->follow up pleural effusion, [...] MDReport Verified Date/Time: 09/26/2017 09:58:49 Reading Location: [facility] Mammo Reading Room FLUID CULTURE + GRAM [id number] 08:01:00 Test Item Value Reference Range Interpretation Comments CULTURE (BEAKER) (test code No growth = 1095) GRAM STAIN RESULT (BEAKER) <1+ WBCs (test code = 1123) GRAM STAIN RESULT (BEAKER) No organisms seen (test code = 61645) [id number] 21:07:00Medical Cytology Report Case: [id number] Authorizing Provider: Russ Burgos MD Collected: 08/30/2017 1600 Ordering Location: [facility] Radiology Ultrasound Received: 08/31/2017 1011 Pathologist: Maricruz Nixon MD Specimen: Peritoneal Fluid PERITONEAL FLUID (CYTOSPINS): - NO MALIGNANT CELLS IDENTIFIED Signing Pathologist Direct Phone Line: [phone] signed by Maricruz Nixon MD on 08/31/2017 at 9:07 PMCytospins show mesothelial cells, macrophages and mixed inflammatory cells. Mild atypia is seen in the range of reactive changes. No diagnostic features of malignancy are seen. Clinical correlation is recommended. [id number]; liver cirrhosis PERITONEAL FLUID4 cytospins rebzkvce5722 ml yellow fluidCollected: [id number]: [id number] [facility], Department of Pathology, [address] [place] [address], [facility], [facility] of [facility], [address] [place] [address], CBTN FLUID CELL COUNT WITH [id number] 10:35:00 Test Item Value Reference Range Interpretation [...] Tube (test code = 2873) TRIGLYCERIDES, BODY [id number] 09:34:00 Test Item Value Reference Range Interpretation Comments TRIGLYCERIDES FLUID (BEAKER) (test < mg/dL code = 539) Reference Range: No Normals Assay performance has not been validated for this type of specimen.ALBUMIN, BODY [id number] 09:34:00 Test Item Value Reference Range Interpretation Comments ALBUMIN FLUID (BEAKER) (test code = 0.4 gm/dL 501) Reference Range: No Normals Assay performance has not been validated for this type of specimen.PROTEIN, BODY [id number] 09:34:00 Test Item Value Reference Range Interpretation Comments PROTEIN FLUID (BEAKER) (test code = < g/dL 579) Absence of reference range indicates that normals have not been defined.Assay performance has not been validated for this type of specimen.CT, CHEST, WITHOUT [id number] 17:13:00FINAL REPORT TECHNIQUE: CT scan of the [...] MDReport Verified Date/Time: 08/30/2017 17:13:58 Reading Location: [facility] C013Y CT Body Reading Room U/S, ABDOMINAL, WITH [id number] 16:44:00Reason for Exam:->cirrhosis, screen for HCC, evaluate [...] MDReport Verified Date/Time: 08/30/2017 16:44:30 Reading Location: [address] Ultrasound Reading Room U/S, [id number] 16:06:00Please send ascitic fluid for cell count [...] skin and deep soft tissues. A 5 Norwegian multi-sidehole catheter was inserted and removed from the peritoneal space and approximately 1050 milliliters of clear yellow fluid was aspirated from the abdomen. Specimens were collected for the lab. There were no immediate complications. Impression: Successful ultras ound guided paracentesis with aspiration of 1050 mL of clear yellow fluid. Signed: Tanner Quintanilla MDReport Verified Date/Time: 08/30/2017 16:06:12 Reading Location: [address] Ultrasound Reading Room ALPHA FETOPROTEIN (AFP), TUMOR MARKER 2017-08-29 15:39:00 Test Item Value Reference Range Interpretation Comments ALPHA-FETOPROTEIN (BEAKER) (test 3.3 ng/mL <10.0 code = 1094) CBC W/PLT COUNT & AUTO [id number] 15:31:00 Test Item Value Reference Range Interpretation [...] (BEAKER) (test code = 2801) HEPATIC FUNCTION [id number] 15:15:00 Test Item Value Reference Range Interpretation [...] = 17 U/L 6-55 347) BASIC METABOLIC [id number] 15:15:00 Test Item Value Reference Range Interpretation [...] NOT APPLICABLE FOR DIALYSIS PATIEN TS. PROTHROMBIN [id number] 15:06:00 Test Item Value Reference Range Interpretation [...] Range ChangeNew: <10.0 Previous: 0.0-8.0 HEPATIC FUNCTION [id number] 13:59:00 Test Item Value Reference Range Interpretation [...] = 24 U/L 6-55 347) BASIC METABOLIC [id number] 13:59:00 Test Item Value Reference Range Interpretation [...] NOT APPLICABLE FOR DIALYSIS PATIEN TS. PROTHROMBIN [id number] 13:42:00 Test Item Value Reference Range Interpretation [...]
[2021-05-26 12:40] LABS: Absolute Lymphocytes (CBC) 0.1 K/uL (0.7-4.9); Basophils % 0.1 % (0-1.3); Hematocrit 20.5 % (36.0-45.0); Lymphocytes % 0.8 % (15.3-44.8); MPV 8.6 fL (7.6-11.3); RBC Red Blood Cell Count 2.66 M/uL (3.86-4.86)
[2021-05-26 12:47] LABS: Protime INR 1.53
--- NOTE | 2021-05-26 13:00 | RAD REPORT ---
EXAM DESCRIPTION: CT - Abdomen Pelvis Wo Contrast - 05/26/2021 12:47 pm CLINICAL HISTORY: Abdominal pain. ABD PAIN COMPARISON: Stone Protocol dated 08/12/2019; Abdomen Pelvis W Contrast dated 02/12/2019; Abdomen Pe lvis W Contrast dated 07/03/2018; Stone Protocol dated 03/05/2018; Chest Abd Pelvis Wo Con dated 021 TECHNIQUE: CT imaging of the abdomen and pelvis was performed without contrast. Solid organ, bowel a nd vascular assessment is limited due to lack of IV and oral contrast. All CT scans are performed using dose optimization technique as appropriate and may include automated exposure control or mA/KV adjustment according to patient size. FINDINGS: Partially imaged large right pleural effusion. There are nonspecific nodular and irregular airspace disease in the lingula and right upper lobe with air bronchograms. This is new from prior. Cirrhotic liver morphology. Low-density lesion the hepatic dome is unchanged since 08/12/2019. Spleno megaly. Cholecystectomy. Moderate stool in the colon. Large volume of ascites including a large volum e of fluid within the inguinal canals. Anasarca. No bowel obstruction is identified. Grossly unremark able appearance of the kidneys and pancreas though limited without IV contrast. No retroperitoneal ly mphadenopathy. There is also fluid within a ventral hernia. The osseous structures are within normal limits. IMPRESSION: 1. Large volume of ascites, large right pleural effusion, and anasarca. 2. New airspace disease in the right upper and left upper lobes suspicious for pneumonia or sequela o f an interval pneumonia. Recommend 3 month follow up chest CT to ensure resolution. A limited non-contrast examination was performed as detailed.
[2021-05-26 13:39] LABS: Blood Morphology Comment NOT SEEN (NOT SEEN); Platelet Estimate ADEQ
[2021-05-26 15:14] LABS: Albumin 1.9 g/dL (3.4-5.0); Bilirubin Total 2.1 mg/dL (0.2-1.0); Protein, Total 6.6 g/dL (6.4-8.2)
[2021-05-26 15:18] LABS: Potassium 5.8 mmol/L (3.5-5.1)
[2021-05-26] MEDS ORDERED: ONDANSETRON 4 MG/2 ML VIAL IV PRN (16:13)
[2021-05-26] MEDS ORDERED: ACETAMINOPHEN 500 MG TAB PO PRN (16:13)
[2021-05-26] MEDS ORDERED: GLUCAGON 1 MG/VIAL IM PRN (16:24)
[2021-05-26] MEDS ORDERED: D50W 25 GM/50 ML SYRINGE IV PRN (16:24)
[2021-05-26] MEDS: INSULIN -REGULAR HUMAN 50 UNIT/0.5 ML ML SQ SCH ×2 (16:30→21:00)
--- NOTE | 2021-05-26 16:41 | ER ---
Nurse's Notes [facility] Name: Christie Solitario Age: 70 yrs Sex: Female : 1950 Arrival Date: 05/26/2021 Time: 11:48 Bed 13 Private MD: Diagnosis: Abdominal pain, unspecified;Other cirrhosis of liver;Unspecified cirrhosis of liver;Other ascites;Hyperkalemia Presentation: 05/26 11:24 Chief complaint: EMS states: 70 yr. old female A \T\ O x 4, c/o of abdominal distention rb3 and discomfort and SOB. EMS put the pt on a Non-Rebreather. Has a history of Cirrhosis, Diabetes, and Hypertension. Vital signs are stable. BGL 381. Risk Assessment: Do you want to hurt yourself or someone else? Patient reports no desire to harm self or others. 11:24 Method Of Arrival: EMS: [facility] rb3 11:24 Acuity: JM 3 rb3 12:03 Coronavirus screen: Client denies travel out of the [place] in the last 14 days. At this kg time, unable to obtain information related to travel outside the [place] At this time, the client does not indicate any symptoms associated with coronavirus-19. Ebola Screen: Patient negative for fever greater than or equal to 101.5 degrees Fahrenheit, and additional compatible Ebola Virus Disease symptoms Patient denies exposure to infectious person. Patient denies travel to an Ebola-affected area in the 21 days before illness onset. Initial Sepsis Screen: Does the patient meet any 2 criteria? No. Patient's initial sepsis screen is negative. Does the patient have a suspected source of infection? No. Patient's initial sepsis screen is negative. Onset of symptoms was May 22, 2021. Triage Assessment: 11:24 General: Appears uncomfortable, Behavior is calm, cooperative. Pain: Complains of pain rb3 in abdomen. Neuro: Level of Consciousness is awake, alert, obeys commands, Oriented to person, place, time, situation. Cardiovascular: Patient's skin is warm and dry. Respiratory: Airway is patent Respiratory effort is even, labored, Respiratory pattern is regular, symmetrical. Historical: - Allergies: 11:24 No Known Allergies; rb3 - Home Meds: 11:24 Cyclobenzaprine Oral [Active]; Nambutemore [Active]; Tramadol Oral [Active]; Tresiba rb3 U-100 Insulin subcutaneous [Active]; - PMHx: 11:24 Cirrhosis; Hernia; Hypertension; Diabetes - IDDM; rb3 - Immunization history:: Adult Immunizations not up to date, Client reports having NOT received the Covid vaccine. - Social history:: Smoking status: Smoking status: Patient/guardian denies using tobacco, but has a distant history of tobacco abuse. Screenin:02 Abuse screen: Denies threats or abuse. Denies injuries from another. Nutritional kg screening: No deficits noted. Tuberculosis screening: No symptoms or risk factors identified. Fall Risk None identified. Fall in past 12 months (25 points). Secondary diagnosis (15 points) IV access (20 points). Ambulatory Aid- None/Bed Rest/Nurse Assist (0 pts). Gait- Weak (10 pts.). Mental Status- Oriented to own ability (0 pts). Total Bach Fall Scale indicates Low Risk Score (25-44 pts). Fall prevention measures have been instituted. Side Rails Up X 2 Placed close to Nursing Station Frequent Obs/Assesments occuring As available Patient and Family Educated on Fall Prevention Program and strategies. Assessment: 11:59 General: Appears distressed, uncomfortable, Behavior is calm, cooperative, appropriate kg for age, quiet. Pain: Complains of pain in epigastric area, right upper quadrant and left upper quadrant Pain currently is 8 out of 10 on a pain scale. at worst was 10 out of 10 on a pain scale. level that patient reports is acceptable is 3 out of 10 on a pain scale. Quality of pain is described as aching, pressure, Pain began Sunday. Neuro: No deficits noted. Level of Consciousness is awake, alert, obeys commands, Oriented to person, place, time, situation, Appropriate for age. Cardiovascular: No deficits noted. Reports shortness of breath, Heart tones S1 S2. Respiratory: Reports shortness of breath Airway is patent Trachea midline Respiratory effort is even, labored, gasping, with nasal flaring, pursed lip, Respiratory pattern is regular, Breath sounds are coarse bilaterally. Breath sounds with crackles bilaterally. Breath sounds are diminished bilaterally. GI: Abdomen is distended, noted to have ascites, Bowel sounds Hepatomegaly noted. : No deficits noted. EENT: No deficits noted. Derm: No deficits noted. 14:27 Reassessment: Back from [facility]. kg Vital Signs: 12:01 BP 121 / 50; Pulse 89; Resp 17; Pulse Ox 99% on Non-rebreather mask; kg 13:00 BP 117 / 55; Pulse 88; Resp 20; Pulse Ox 100% on Non-rebreather mask; kg 14:30 BP 116 / 51; Pulse 79; Resp 13; Pulse Ox 100% ; kg 15:15 BP 100 / 45; Pulse 75; Resp 20; Pulse Ox 96% ; kg 16:00 BP 102 / 43; Pulse 72; Resp 10; Pulse Ox 97% ; kg 16:45 BP 112 / 55; Pulse 79; Resp 11; Pulse Ox 96% ; kg 17:00 BP 125 / 54; Pulse 75; Resp 14; Pulse Ox 96% on R/A; kg ED Course: 11:24 Arm band placed on right wrist. rb3 11:48 Patient arrived in ED. rb3 11:50 Hugh Dior MD is Attending Physician. kdr 11:51 Meenu Blankenship RN is Primary Nurse. kg 11:52 Triage completed. rb3 12:03 Patient has correct armband on for positive identification. Fall risk band placed. kg Placed in gown. Bed in low position. Call light in reach. Side rails up X2. 12:03 Maintain EMS IV. Dressing intact. Good blood return noted. Site clean \T\ dry. Gauge \T\ kg site: 22 Left AC. 12:48 Abdomen In Process Unspecified. EDMS 13:00 Inserted saline lock: 20 gauge in right antecubital area, using aseptic technique. kg 14:00 PT-INR Sent. kg 14:12 Paracentesis Proc Guidance In Process Unspecified. EDMS 16:38 Derrell Santiago is Hospitalizing Provider. kdr 17:47 Report given to Miquel ASTUDILLO Med-surg. kg Administered Medications: 18:21 Drug: Sodium Bicarbonate 1 amp Route: IVP; Site: left antecubital; kg 18:28 Follow up: Response: No adverse reaction kg 18:22 Drug: D50W 50 ml Route: IVP; Site: left antecubital; kg 18:28 Follow up: Response: No adverse reaction kg 18:23 Drug: Insulin Regular Human 6 units {Co-Signature: jl7 (Jahala Hernandez RN).} Route: IVP; kg Site: left antecubital; 18:28 Follow up: Response: No adverse reaction kg 18:25 Drug: Kayexalate (polystyrene) 30 grams Route: PO; kg 18:28 Follow up: Response: No adverse reaction kg Outcome: 16:40 Decision to Hospitalize by Provider. kdr 19:19 Admitted to Tele kg 19:19 Condition: good 19:19 Patient left the ED. kg Signatures: Dispatcher [employer] EDMS Hugh Dior MD MD kdr Gabi Sam, RN RN rb3 Meenu Blankenship, RN RN kg Katheryn Hernandez RN [email or web address] Corrections: (The following items were deleted from the chart) 13:28 12:03 Maintain EMS IV. Dressing intact. Good blood return noted. Site clean \T\ dry. kg Gauge \T\ site: 20 Left AC. kg 13:30 12:01 BP 121 / 50; Pulse 89bpm; Resp 17bpm; Pulse Ox 99% RA; kg kg
--- NOTE | 2021-05-26 16:42 | EDPHYS ---
Physician Documentation [facility] Name: Christie Solitario Age: 70 yrs Sex: Female : 1950 Arrival Date: 05/26/2021 Time: 11:48 Bed 13 Private MD: ED Physician Hugh Dior HPI: 05/26 18:09 This 70 yrs old Female presents to ER via EMS with complaints of Abdominal kdr Distention. 18:09 The patient presents with abdominal pain in the lower abdomen, that is diffuse. Onset: kdr The symptoms/episode began/occurred gradually, 3 week(s) ago, at an unknown time. The symptoms do not radiate. Associated signs and symptoms: Pertinent positives: shortness of breath. The symptoms are described as achy, constant, dull, steady. Severity of pain: At its worst the pain was mild moderate just prior to arrival, in the emergency department the pain is unchanged. The patient has experienced similar episodes in the past, multiple times. It is unknown whether or not the patient has recently seen a physician. Historical: - Allergies: 11:24 No Known Allergies; rb3 - Home Meds: 11:24 Cyclobenzaprine Oral [Active]; Nambutemore [Active]; Tramadol Oral [Active]; Tresiba rb3 U-100 Insulin subcutaneous [Active]; - PMHx: 11:24 Cirrhosis; Hernia; Hypertension; Diabetes - IDDM; rb3 - Immunization history:: Adult Immunizations not up to date, Client reports having NOT received the Covid vaccine. - Social history:: Smoking status: Smoking status: Patient/guardian denies using tobacco, but has a distant history of tobacco abuse. ROS: 18:09 Constitutional: Negative for fever, chills, and weight loss, Eyes: Negative for injury, kdr pain, redness, and discharge, ENT: Negative for injury, pain, and discharge, Neck: Negative for injury, pain, and swelling, Cardiovascular: Negative for chest pain, palpitations, and edema, Back: Negative for injury and pain, : Negative for injury, bleeding, discharge, and swelling, MS/Extremity: Negative for injury and deformity, Skin: Negative for injury, rash, and discoloration, Neuro: Negative for headache, weakness, numbness, tingling, and seizure activity. Psych: Negative for depression, anxiety, suicide ideation, homicidal ideation, and hallucinations, Allergy/Immunology: Negative for hives, rash, and allergies, Endocrine: Negative for neck swelling, polydipsia, polyuria, polyphagia, and marked weight changes, Hematologic/Lymphatic: Negative for swollen nodes, abnormal bleeding, and unusual bruising. 18:09 Respiratory: Positive for dyspnea on exertion, shortness of breath, at rest. Exam: 18:09 Constitutional: This is a well developed, well nourished patient who is awake, alert, kdr and in no acute distress. Head/Face: Normocephalic, atraumatic. Eyes: Pupils equal round and reactive to light, extra-ocular motions intact. Lids and lashes normal. Conjunctiva and sclera are non-icteric and not injected. Cornea within normal limits. Periorbital areas with no swelling, redness, or edema. Neck: Trachea midline, no thyromegaly or masses palpated, and no cervical lymphadenopathy. Supple, full range of motion without nuchal rigidity, or vertebral point tenderness. No Meningismus. Chest/axilla: Normal chest wall appearance and motion. Nontender with no deformity. No lesions are appreciated. Cardiovascular: Regular rate and rhythm with a normal S1 and S2. No gallops, murmurs, or rubs. Normal PMI, no JVD. No pulse deficits. Respiratory: Lungs have equal breath sounds bilaterally, clear to auscultation and percussion. No rales, rhonchi or wheezes noted. No increased work of breathing, no retractions or nasal flaring. Back: No spinal tenderness. No costovertebral tenderness. Full range of motion. Skin: Warm, dry with normal turgor. Normal color with no rashes, no lesions, and no evidence of cellulitis. MS/ Extremity: Pulses equal, no cyanosis. Neurovascular intact. Full, normal range of motion. Neuro: Awake and alert, GCS 15, oriented to person, place, time, and situation. Cranial nerves II-XII grossly intact. Motor strength 5/5 in all extremities. Sensory grossly intact. Cerebellar exam normal. Normal gait. Psych: Awake, alert, with orientation to person, place and time. Behavior, mood, and affect are within normal limits. 18:09 Abdomen/GI: Inspection: distension, that is severe, in the abdomen diffusely, Bowel sounds: diminished, in all quadrants, Palpation: voluntary guarding. Vital Signs: 12:01 BP 121 / 50; Pulse 89; Resp 17; Pulse Ox 99% on Non-rebreather mask; kg 13:00 BP 117 / 55; Pulse 88; Resp 20; Pulse Ox 100% on Non-rebreather mask; kg 14:30 BP 116 / 51; Pulse 79; Resp 13; Pulse Ox 100% ; kg 15:15 BP 100 / 45; Pulse 75; Resp 20; Pulse Ox 96% ; kg 16:00 BP 102 / 43; Pulse 72; Resp 10; Pulse Ox 97% ; kg 16:45 BP 112 / 55; Pulse 79; Resp 11; Pulse Ox 96% ; kg 17:00 BP 125 / 54; Pulse 75; Resp 14; Pulse Ox 96% on R/A; kg MDM: 16:40 Patient medically screened. kdr 18:09 Data reviewed: vital signs, nurses notes, lab test result(s), radiologic studies. kdr Counseling: I had a detailed discussion with the patient and/or guardian regarding: the historical points, exam findings, and any diagnostic results supporting the discharge/admit diagnosis, lab results, radiology results, the need for further work-up and treatment in the hospital. 05/26 11:51 Order name: Basic Metabolic Panel [facility] 05/26 11:51 Order name: CBC with Diff; Complete Time: 14:03 [facility] 05/26 11:51 Order name: Hepatic Function [facility] 05/26 11:51 Order name: Lipase [facility] 05/26 12:02 Order name: PT-INR [facility] 05/26 12:03 Order name: Protime (+INR); Complete Time: 14:03 [facility] 05/26 12:13 Order name: Ptt, Activated; Complete Time: 14:03 05/26 13:39 Order name: Manual Differential; Complete Time: 14:03 [facility] 05/26 13:59 Order name: Type And Screen kg 05/26 14:00 Order name: CREATININE WHOLE BLOOD; Complete Time: 14:03 [facility] 05/26 14:07 Order name: PRBC [facility] 05/26 14:41 Order name: Packed RBC Leukored [facility] 05/26 12:04 Order name: Paracentesis Proc Guidance [facility] 05/26 12:35 Order name: Abdomen ; Complete Time: 14:03 [facility] 05/26 16:19 Order name: CONS Physician Consult [facility] 05/26 16:19 Order name: Regular [facility] 05/26 16:21 Order name: Chest Lateral Decubitus [facility] 05/26 16:23 Order name: Ammonia [facility] 05/26 16:23 Order name: Basic Metabolic Panel [facility] 05/26 16:23 Order name: CBC with Automated Diff [facility] 05/26 16:28 Order name: SARS-COV-2 RT PCR [facility] 05/26 11:51 Order name: IV Saline Lock; Complete Time: 12:12 kdr 05/26 11:51 Order name: Labs collected and sent; Complete Time: 14:00 kdr 05/26 13:04 Order name: Labs - recollect needed; Complete Time: 13:27 mt 05/26 14:33 Order name: Labs - recollect needed mt Administered Medications: 18:21 Drug: Sodium Bicarbonate 1 amp Route: IVP; Site: left antecubital; kg 18:28 Follow up: Response: No adverse reaction kg 18:22 Drug: D50W 50 ml Route: IVP; Site: left antecubital; kg 18:28 Follow up: Response: No adverse reaction kg 18:23 Drug: Insulin Regular Human 6 units {Co-Signature: jl7 (Katheryn Hernandez RN).} Route: IVP; kg Site: left antecubital; 18:28 Follow up: Response: No adverse reaction kg 18:25 Drug: Kayexalate (polystyrene) 30 grams Route: PO; kg 18:28 Follow up: Response: No adverse reaction kg Disposition Summary: 05/26/21 16:40 Hospitalization Ordered Hospitalization Status: Inpatient Admission kdr Provider: Derrell Santiago kdr Condition: Fair kdr Problem: an acute exacerbation kdr Symptoms: have improved kdr Bed/Room Type: Standard kdr Location: Telemetry/MedSurg (Inpatient)(05/26/21 17:25) me Room Assignment: [facility](05/26/21 17:25) me Diagnosis - Abdominal pain, unspecified kdr - Other cirrhosis of liver kdr - Unspecified cirrhosis of liver kdr - Other ascites kdr - Hyperkalemia kdr Forms: - Medication Reconciliation Form kdr - SBAR form kdr Signatures: Dispatcher [employer] [facility] Hugh Dior MD MD kdr Thompson, Moriah mt Barber, Rebecca RN RN rb3 Meenu Blankenship RN RN kg Katheryn Hernandez RN [email or web address] Corrections: (The following items were deleted from the chart) 12:35 11:53 Abdomen Pelvis W Con+CT.RAD.BRZ ordered. EDMS EDMS 13:42 13:41 Paracentesis Proc Guidance ordered. EDMS EDMS 14:33 14:08 ABO/RH typing ordered. EDMS EDMS 14:33 14:08 Antibody Screen ordered. EDMS EDMS 15:31 14:51 CORONAVIRUS+MR.LAB.BRZ ordered. EDMS EDMS 17:25 16:40 Intensive Care Unit kdr mt 17:25 16:40 kdr mt
[2021-05-26] MEDS ORDERED: NA CHLORIDE 0.9% 250 ML ONE (16:52)
[2021-05-26] MEDS ORDERED: NA CHLORIDE 0.9% 1,000 ML IV SCH (17:00)
[2021-05-26] MEDS ORDERED: ALBUMIN HUMAN 25% 12.5 GM, FUROSEMIDE 100 MG in NA CHLORIDE 0.9% 40 ML IV SCH (17:00)
--- NOTE | 2021-05-26 17:22 | P.HP ---
Certification for Inpatient Patient admitted to: Inpatient With expected LOS: >2 Midnights Patient will require the following post-hospital care: None Practitioner: I am a practitioner with admitting privileges, knowledge of patient current condition, hospital course, and medical plan of care. Services: Services provided to patient in accordance with Admission requirements found in Title 42 Section 412.3 of the Code of Federal Regulations Patient History Date of Service: 05/26/21 Reason for admission: Shortness of breath History of Present Illness: Patient is a 70-year-old female came to the hospital with shortness of breath. She was brought an and she had a paracentesis performed. She had 4 L of ascites removed. However, she also has a large right pleural effusion. Will probably need to get lateral decubitus to make shore this is not a loculated pleural effusion and may need thoracentesis in the morning. Will check her coagulation profile as well. Patient was anemic but there is no active bleeding. Will go ahead and transfuse her 2 units of packed red blood cells. Patient also with acute renal insufficiency. She is hyperkalemic and we will correct this as well. Allergies No Known Allergies Allergy (Verified 05/26/21 19:36) Home Medications: Cyclobenzaprine [Flexeril*] 1 tab PO DAILY 05/27/21 Insulin Degludec [Tresiba Flextouch U-100] 20 units SQ DAILY 05/27/21 Meloxicam 15 mg PO DAILY 05/27/21 Nabumetone 750 mg PO DAILY 05/27/21 Spironolactone [Aldactone] 25 mg PO BID PRN 05/27/21 traMADol HCL [Ultram] 50 mg PO BID PRN 05/27/21 - Past Medical/Surgical History Diabetic: Yes -: HTN -: NIDDM -: Cirrhosis -: thyroid problem -: cholecystectomy - Family History Father Medical History: Heart disease, Hypertension, Diabetes Mother Medical History: Hypertension, GI disease, Diabetes, Liver disease - Social History Smoking Status: Former smoker Alcohol use: No CD- Drugs: No Caffeine use: Yes Review of Systems 10-point ROS is otherwise unremarkable Physical Examination - Vital Signs Temperature: 98 F Blood Pressure: 120/70 Pulse: 88 Respirations: 18 Pulse Ox (%): 95 - Physical Exam General: Alert, In no apparent distress, Oriented x3 HEENT: Atraumatic, PERRLA, Mucous membr. moist/pink, EOMI, Sclerae nonicteric Neck: Supple, 2+ carotid pulse no bruit, No LAD, Without JVD or thyroid abnormality Respiratory: Clear to auscultation bilaterally, Normal air movement Cardiovascular: Regular rate/rhythm, Normal S1 S2, No murmurs Gastrointestinal: Normal bowel sounds, Soft and benign, Non-distended, No tenderness Musculoskeletal: No clubbing, No swelling, No tenderness Integumentary: No rashes Neurological: Normal gait, Normal speech, Normal strength at 5/5 x4 extr, Sensation intact, Cranial nerves 3-12 intact, Normal affect Lymphatics: No axilla or inguinal lymphadenopathy - Studies Laboratory Data (last 24 hrs) 05/26/21 14:41: Sodium 131 L, Potassium 5.8 H*, BUN 42 H, Creatinine 1.74 H, Glucose 301 H, Total Bilirubin 2.1 H, AST 19, ALT 11 L, Alkaline Phosphatase 107, Lipase 37 L 05/26/21 12:19: APTT 32.8 05/26/21 12:19: PT 17.7 H, INR 1.53 05/26/21 12:19: WBC 11.30 H, Hgb 6.5 L*, Hct 20.5 L*, Plt Count 115 L Assessment & Plan - Problems (Diagnosis) (1) Altered mental status Onset Date: 12/18/16 Current Visit: No Status: Acute (2) Cirrhosis Onset Date: 09/01/14 Current Visit: No Status: Acute (3) Diabetes mellitus Onset Date: 09/01/14 Current Visit: No Status: Acute (4) Esophageal varices Onset Date: 08/31/14 Current Visit: No Status: Acute (5) Varices, gastric Onset Date: 09/01/14 Current Visit: No Status: Acute (6) Pleural effusion Current Visit: Yes Status: Acute - Plan Plan: 1. Transfusion for low hemoglobin 2. Thoracentesis and paracentesis 3. Strict blood pressure control 4. Monitor LFTs closely 5. Monitor volume status 6. Monitor renal function 7. Nephrology consultation if renal function not improving and renal ultrasound 8. GI and DVT prophylaxis Discharge Plan: Home Plan to discharge in: Greater than 2 days - Advance Directives Does patient have a Living Will: No Does patient have a Durable POA for Healthcare: No - Code Status/Comfort Care Code Status Assessed: Yes Code Status: Full Code Critical Care: No Time Spent Managing PTS Care (In Minutes): 45
[2021-05-26 17:27] LABS: Absolute Lymphocytes (CBC) 0.1 K/uL (0.7-4.9); Basophils % 0.2 % (0-1.3); Lymphocytes % 1.3 % (15.3-44.8); MPV 8.2 fL (7.6-11.3); RBC Red Blood Cell Count 2.62 M/uL (3.86-4.86)
[2021-05-26 17:31] LABS: Potassium 6.2 mmol/L (3.5-5.1)
[2021-05-26 17:33] LABS: Hematocrit 20.4 % (36.0-45.0)
--- NOTE | 2021-05-26 17:52 | RAD REPORT ---
EXAM DESCRIPTION: RAD - Chest Lateral Decubitus - 05/26/2021 5:24 pm CLINICAL HISTORY: Pleural effusion COMPARISON: CT abdomen May 26 TECHNIQUE: Right and left lateral decubitus films were obtained. FINDINGS: CT image showed pleural fluid filling the vast majority of the right hemithorax. Assessmen t of layering of pleural fluid is difficult when only a very small portion of the right hemithorax is not filled with fluid. There is fluid collecting in the apex. Most of the fluid is believed to be fr eely moving within the pleural space with significant loculation unlikely. IMPRESSION: Pleural fluid fills the majority of the right hemithorax even prior to obtained the decu bitus image. Most of the fluid is believed to be freely moving within the pleural cavity. Significant loculation i s unlikely.
[2021-05-26] MEDS ORDERED: INSULIN -REGULAR HUMAN 50 UNIT/0.5 ML ML ONE (18:25)
[2021-05-26] MEDS ORDERED: SOD POLYSTYREN SUL 15 GM/60 ML UCUP ONE (18:26)
[2021-05-26] MEDS ORDERED: D50W 25 GM/50 ML SYRINGE IV ONE (18:26)
[2021-05-26] MEDS ORDERED: ACETAMINOPHEN 500 MG TAB ONE (18:27)
[2021-05-26] MEDS: D5W 1,000 ML with NA BICARB 8.4% 50 MEQ IV SCH ×2 (19:35)
[2021-05-26 21:50] VITALS: BMI 23.1
[2021-05-27] MEDS ORDERED: NA CHLORIDE 0.9% 250 ML ONE (00:13)
[2021-05-27] MEDS: TRAMADOL HCL 50 MG TAB PO PRN ×2 (05:08→19:53)
[2021-05-27 06:16] LABS: Absolute Lymphocytes (CBC) 0.1 K/uL (0.7-4.9); Basophils % 0.2 % (0-1.3); Lymphocytes % 1.5 % (15.3-44.8); MPV 8.1 fL (7.6-11.3); RBC Red Blood Cell Count 3.44 M/uL (3.86-4.86)
[2021-05-27 06:39] LABS: Albumin 2.1 g/dL (3.4-5.0); Bilirubin Total 2.9 mg/dL (0.2-1.0); Magnesium 2.1 mg/dL (1.8-2.4); Phosphorus 3.9 mg/dL (2.5-4.9); Protein, Total 6.8 g/dL (6.4-8.2)
[2021-05-27 06:44] LABS: Thyroid Stimulating Hormone 9.11 uIU/mL (0.360-3.740)
--- NOTE | 2021-05-27 07:54 | RAD REPORT ---
EXAM DESCRIPTION: US - Paracentesis Proc Guidance - 05/26/2021 2:38 pm CLINICAL HISTORY: abd distention, cirrhosis, SOB Ascites COMPARISON: No comparisons FINDINGS: Informed consent was obtained and time-out was performed. Patient's abdomen was prepped and draped in the usual sterile fashion. 1% lidocaine was used for loca l anesthetic purposes. A small skin incision was made. A paracentesis catheter was guided into the peroneal cavity under son ographic guidance. A large volume paracentesis was performed. The patient tolerated the procedure well. IMPRESSION: Successful ultrasound-guided paracentesis.
[2021-05-27] MEDS: INSULIN -REGULAR HUMAN 50 UNIT/0.5 ML ML SQ SCH ×4 (08:33→22:10)
--- NOTE | 2021-05-27 09:41 | P.PN ---
Subjective Date of Service: 05/27/21 Patient had 1.9 L of fluid removed from the right lung; spoke with transplant doctor who said patient's meld score has been around 16 and does not qualify for emergent transfer. However, they are still trying to get her a transplant if she has a match. Outpatient follow-up in 1 month. Patient with significant portal hypertension. Continue with diuresing. Monitor renal function closely. Patient on 2 NSAIDs for pain control. Patient with a history of cirrhosis and especially varices. NSAIDs are not really recommended in patient with varices. Patient with a history of esophageal and gastric varices. Will hold off on these. Review of Systems 10-point ROS is otherwise unremarkable Physical Examination - Vital Signs Temperature: 98 F Blood Pressure: 120/70 Pulse: 88 Respirations: 18 Pulse Ox (%): 95 - Physical Exam General: Alert, In no apparent distress, Oriented x3, Other (Patient with generalized weakness) Respiratory: Crackles/rales (But otherwise clear) Cardiovascular: Regular rate/rhythm, Normal S1 S2, Systolic murmur Gastrointestinal: Normal bowel sounds, Soft and benign, No tenderness, No rebound, No guarding, Distended (Mildly distended) Musculoskeletal: No clubbing, No tenderness, Swelling Neurological: Sensation intact, Cranial nerves 3-12 intact - Studies Laboratory Data (last 24 hrs) 05/26/21 14:41: Sodium 131 L, Potassium 5.8 H*, BUN 42 H, Creatinine 1.74 H, Glucose 301 H, Total Bilirubin 2.1 H, AST 19, ALT 11 L, Alkaline Phosphatase 107, Lipase 37 L 05/26/21 12:19: APTT 32.8 05/26/21 12:19: PT 17.7 H, INR 1.53 05/26/21 12:19: WBC 11.30 H, Hgb 6.5 L*, Hct 20.5 L*, Plt Count 115 L Medications List Reviewed: Yes Assessment & Plan - Problems (Diagnosis) (1) Altered mental status Onset Date: 12/18/16 Current Visit: No Status: Acute (2) Cirrhosis Onset Date: 09/01/14 Current Visit: No Status: Acute (3) Diabetes mellitus Onset Date: 09/01/14 Current Visit: No Status: Acute (4) Esophageal varices Onset Date: 08/31/14 Current Visit: No Status: Acute (5) Varices, gastric Onset Date: 09/01/14 Current Visit: No Status: Acute (6) Pleural effusion Current Visit: Yes Status: Acute (7) Anemia associated with acute blood loss Current Visit: Yes Status: Acute (8) Ascites Current Visit: Yes Status: Acute - Plan Plan: Continue with plan of care as mentioned below: 1. Hemoglobin is stable 2. Thoracentesis with almost 2 L of fluid removed and paracentesis performed yesterday with 4-5 L of fluid removed 3. Strict blood pressure control 4. Out of bed and ambulate and continue to diurese 5. Monitor volume status; Hep-Lock IV fluids 6. Monitor renal function 7. Renal function has improved; continue with diuresing; outpatient follow-up with liver transplant physician 8. GI and DVT prophylaxis Discharge Plan: Home Plan to discharge in: Greater than 2 days - Advance Directives Does patient have a Living Will: No Does patient have a Durable POA for Healthcare: No - Code Status/Comfort Care Code Status: Full Code Critical Care: No Time Spent Managing PTS Care (In Minutes): 35
[2021-05-27] MEDS ORDERED: ALBUMIN HUMAN 25% 12.5 GM, FUROSEMIDE 100 MG in NA CHLORIDE 0.9% 40 ML IV SCH (10:00)
--- NOTE | 2021-05-27 10:54 | RAD REPORT ---
EXAM DESCRIPTION: US - Thoracentesis w/ US Guide - 05/27/2021 10:30 am CLINICAL HISTORY: Pleural effusion. Pleural effusion COMPARISON: Paracentesis Proc Guidance dated 05/26/2021 FINDINGS: Preoperative diagnosis: Right pleural effusion Post operative diagnosis: Same Conscious Sedation: None. Estimated blood loss: Minimal Specimens:A small volume of fluid was sent for requested lab studies. The patient was placed in the upright recumbent position and the right chest was prepped and draped i n the usual sterile fashion. 1% Lidocaine was infiltrated into the soft tissues for local anesthesia . Under sonographic guidance, a thoracentesis needle and 6 Stateless catheter was advanced into the rig ht pleural space. Approximately 1400 yellow fluid was aspirated. Samples were sent to pathology for r equested analysis. The patient tolerated the procedure without immediate complication and transferred to the floor in stable condition. IMPRESSION: Successful ultrasound-guided thoracentesis as detailed.
--- NOTE | 2021-05-27 11:41 | RAD REPORT ---
EXAM DESCRIPTION: RAD - Chest Single View - 05/27/2021 11:15 am CLINICAL HISTORY: POST THORA COMPARISON: Chest Single View dated 02/12/2019; Chest Single View dated 12/18/2016; Chest Single View da kianna 12/17/2016; CHEST SINGLE VIEW dated 08/31/2014; Thoracentesis w/ US Guide dated 05/27/2021; Abdomen Pelvis Wo Contrast dated 05/26/2021; Chest Lateral Decubitus dated 05/26/2021 FINDINGS: Interval right-sided thoracentesis with improved aeration of the right lung base. No pneum othorax. There is airspace disease in the upper lobe lungs bilaterally. Heart size is within normal l imits. IMPRESSION: Interval right-sided thoracentesis. No pneumothorax. Bilateral upper lung airspace opaci ties that may reflect pneumonia. These are partially imaged on the CT from 05/26/2021.
[2021-05-27 12:53] LABS: Appearance SLT. TURBID (CLEAR); Body Fluid Source PLEURAL; Body Fluid WBC 809 /mm^3; Color of fluid Yellow (COLORLESS)
[2021-05-27] MEDS: D5W 1,000 ML with NA BICARB 8.4% 50 MEQ IV SCH ×2 (14:00)
[2021-05-27] MEDS ORDERED: D50W 25 GM/50 ML VIAL IV PRN (18:00)
[2021-05-28] MEDS ORDERED: MORPHINE 2 MG/ML SYR IV PRN (00:13)
[2021-05-28] MEDS: SPIRONOLACTONE 25 MG TABLET PO SCH ×2 (03:11→09:13)
[2021-05-28 05:59] LABS: Absolute Lymphocytes (CBC) 0.2 K/uL (0.7-4.9); Basophils % 0.3 % (0-1.3); Hematocrit 27.4 % (36.0-45.0); Lymphocytes % 2.8 % (15.3-44.8); MPV 7.7 fL (7.6-11.3); RBC Red Blood Cell Count 3.54 M/uL (3.86-4.86)
[2021-05-28 06:53] LABS: Folic Acid, (Folate) 10.2 ng/mL (3.1-17.5); Magnesium 1.8 mg/dL (1.8-2.4); Phosphorus 3.7 mg/dL (2.5-4.9); Potassium 4.7 mmol/L (3.5-5.1)
--- NOTE | 2021-05-28 07:02 | RAD REPORT ---
EXAM DESCRIPTION: RAD - Chest Single View - 05/28/2021 6:43 am CLINICAL HISTORY: pneumonia COMPARISON: Chest Single View dated 05/27/2021; Chest Single View dated 02/12/2019; Chest Single View d ated 12/18/2016; Chest Single View dated 12/17/2016; Thoracentesis w/ US Guide dated 05/27/2021 FINDINGS: Patchy bilateral airspace disease is again noted, predominantly upper lung. Worsened aerat ion of the right lung base may represent some reaccumulation of pleural fluid. Heart size is similar. No fractures is seen. Aortic atherosclerosis. No pneumothorax. IMPRESSION: Worsened aeration of the right lung base may be secondary to reaccumulating pleural flui d. Other patchy bilateral airspace disease noted which may reflect multifocal pneumonia.
[2021-05-28 07:12] LABS: Thyroid Stimulating Hormone 8.86 uIU/mL (0.360-3.740)
[2021-05-28] MEDS ORDERED: INSULIN GLARGINE 100 UNITS/ML SQ SCH (08:00)
[2021-05-28] MEDS ORDERED: FUROSEMIDE 20 MG/ 2ML VIAL IV SCH (09:00)
[2021-05-28] MEDS: TRAMADOL HCL 50 MG TAB PO PRN (09:13)
[2021-05-28] MEDS: INSULIN -REGULAR HUMAN 50 UNIT/0.5 ML ML SQ SCH ×2 (09:14→11:30)
--- NOTE | 2021-05-28 10:24 | P.DS ---
Admission Date: 05/26/21 Discharge Date: 05/28/21 Primary Care Provider: NILDA Abreu; Liver Specialist[facility] Disposition: ROUTINE DISCHARGE Discharge Condition: GOOD Reason for Admission: Shortness of breath Consultations: none Procedures: CT Scan: COMPARISON: [facility] Protocol dated 08/12/2019; Abdomen Pelvis W Contrast dated 02/12/2019; Abdomen Pelvis W Contrast dated 07/03/2018; [facility] Protocol dated 03/05/2018; Chest Abd Pelvis Wo Con dated 01/02/2021 TECHNIQUE: CT imaging of the abdomen and pelvis was performed without contrast. Solid organ, bowel and vascular assessment is limited due to lack of IV and oral contrast. All CT scans are performed using dose optimization technique as appropriate and may include automated exposure control or mA/KV adjustment according to patient size. FINDINGS: Partially imaged large right pleural effusion. There are nonspecific nodular and irregular airspace disease in the lingula and right upper lobe with air bronchograms. This is new from prior. Cirrhotic liver morphology. Low-density lesion the hepatic dome is unchanged since 08/12/2019. Splenomegaly. Cholecystectomy. Moderate stool in the colon. Large volume of ascites including a large volume of fluid within the inguinal canals. Anasarca. No bowel obstruction is identified. Grossly unremarkable appearance of the kidneys and pancreas though limited without IV contrast. No retroperitoneal lymphadenopathy. There is also fluid within a ventral hernia. The osseous structures are within normal limits. IMPRESSION: 1. Large volume of ascites, large right pleural effusion, and anasarca. 2. New airspace disease in the right upper and left upper lobes suspicious for pneumonia or sequela of an interval pneumonia. Recommend 3 month follow up chest CT to ensure resolution. A limited non-contrast examination was performed as detailed. Thorancentesis: COMPARISON: Paracentesis Proc Guidance dated 05/26/2021 FINDINGS: Preoperative diagnosis: Right pleural effusion Post operative diagnosis: Same Conscious Sedation: None. Estimated blood loss: Minimal Specimens:A small volume of fluid was sent for requested lab studies. The patient was placed in the upright recumbent position and the right chest was prepped and draped in the usual sterile fashion. 1% Lidocaine was infiltrated into the soft tissues for local anesthesia. Under sonographic guidance, a thoracentesis needle and 6 Polish catheter was advanced into the right pleural space. Approximately 1400 yellow fluid was aspirated. Samples were sent to [facility] for requested analysis. The patient tolerated the procedure without immediate complication and transferred to the floor in stable condition. IMPRESSION: Successful ultrasound-guided thoracentesis as detailed. Paracentesis: COMPARISON: No comparisons FINDINGS: Informed consent was obtained and time-out was performed. Patient's abdomen was prepped and draped in the usual sterile fashion. 1% lidocaine was used for local anesthetic purposes. A small skin incision was made. A paracentesis catheter was guided into the peroneal cavity under sonographic guidance. A large volume paracentesis was performed. The patient tolerated the procedure well. IMPRESSION: Successful ultrasound-guided paracentesis. Follow up CXR: COMPARISON: Chest Single View dated 05/27/2021; Chest Single View dated 02/12/2019; Chest Single View dated 12/18/2016; Chest Single View dated 12/17/2016; Thoracentesis w/ US Guide dated 05/27/2021 FINDINGS: Patchy bilateral airspace disease is again noted, predominantly upper lung. Worsened aeration of the right lung base may represent some reaccumulation of pleural fluid. Heart size is similar. No fractures is seen. Aortic atherosclerosis. No pneumothorax. IMPRESSION: Worsened aeration of the right lung base may be secondary to reaccumulating pleural fluid. Other patchy bilateral airspace disease noted which may reflect multifocal pneumonia. Medical Problem List: Shortness of breath secondary to right pleural effusion status post thoracentesis with removal of fluid Ascites with history of chronic cirrhosis status post paracentesis with removal of fluid Diabetes mellitus type 2 insulin-dependent Chronic renal disease stage III Anemia of chronic disease requiring transfusion of blood Iron deficiency anemia Hypothyroidism Brief History of Present Illness: 70-year-old female with history of cirrhosis presented with shortness of breath. She was brought in to have a paracentesis. 4 L of fluid removed. She was also found to have a large right pleural effusion. Patient was admitted for further evaluation and treatment. Hospital Course: Patient presented with shortness of breath. This was related to her ascites and pleural effusion. Patient has cirrhosis of the liver. She also has a history of esophageal varices, anemia of chronic disease, and chronic ascites. She is seen by the liver transplant team. Her meld score is 16. She does not qualify for emergent transfer. During the course of her stay patient had a thoracentesis in which 1.9 L of fluid was removed. She also had a paracentesis in which 4 to 5 L removed. Patient stable at this time. Patient will continue with current medications. At discharge she will continue with Lasix 40 mg daily and Aldactone 25 mg 1 pill twice daily. Recommend to continue 1500 cc/day fluid restriction and low-salt diet. Recommend to monitor her weight daily. If her weight increases by more than 5 pounds she will need to follow-up with her PCP or liver specialist to further address. Patient will likely require repeat paracentesis in the future. This can be done as an outpatient with the help of her PCP or liver specialist. Recommend follow-up with her liver specialist within 1 week to follow-up this hospitalization and continue her care. Recommend recheck labCMP and CBC in 1 to 2 weeks. Recommend to recheck chest x-ray in 2 to 4 weeks to monitor resolution. Patient with history of gastric varices. Patient with underlying GERD. At discharge it is recommended to continue Protonix 40 mg daily. Patient had been taking anti-inflammatories for pain. Recommend to discontinue all nonsteroidal anti-inflammatories due to her history of varices. Recommend to discontinue Meloxicam and nabumetone. Patient is to no longer take these medications. She is not to take any nonsteroidal anti-inflammatories in the future including ibuprofen, Motrin, Aleve. Patient may continue with tramadol 50 mg twice daily as needed for pain. Patient may take Tylenol but limit Tylenol use up to no more than 2 g/day maximum. Patient with diabetes mellitus type 2. She is insulin-dependent. At discharge she will continue with Tresiba 20 units daily. Recommend to monitor blood sugars at least twice daily. Recommend to maintain blood sugar less than 140 fasting and less than 200 after meals. Further adjustment in her medication can be done by her PCP. Recommend to recheck hemoglobin A1c every 3 months to monitor progress. Recommend follow-up with PCP in 1 week to follow-up hospitalization. Patient with chronic renal disease stage III. This is remained stable. Recommend to establish care with nephrology as an outpatient to further address and monitor. Recommend to recheck CMP in 1 week. Patient with anemia of chronic disease. She required transfusion during the course of her stay. Patient received 2 units of blood. Hemoglobin now stable. Patient also with B12 deficiency. At discharge she will continue with multivitamin daily, folic acid 1 mg daily, and B12 1000 mg daily. Recommend to recheck labCBC in 1 to 2 weeks to monitor her progress. Patient with abnormal TSH and free T4. Patient likely with hypothyroidism. At discharge patient will be started on levothyroxine 25 mcg daily. Recommend to recheck TSH and free T4 in 4 to 6 weeks to monitor her progress. Further adjustment can be done by her PCP. Vital Signs/Physical Exam: Temp Pulse Resp BP Pulse Ox 98.5 F 83 18 148/69 H 96 05/28/21 08:00 05/28/21 09:13 05/28/21 09:13 05/28/21 09:13 05/28/21 09:13 General: Alert, In no apparent distress, Oriented x3, Cooperative HEENT: Atraumatic Neck: Supple Respiratory: Diminished (Diminished but good air movement bilateral) Cardiovascular: Normal pulses, Regular rate/rhythm Gastrointestinal: Normal bowel sounds, No masses, No rebound, No guarding, Ascites (Ascites but improved) Integumentary: No warmth, No cyanosis, Tenderness/swelling (Some edema to the to the lower extremity but improved) Neurological: Normal speech, Normal strength at 5/5 x4 extr, Normal tone, Normal affect Laboratory Data at Discharge: WBC 7.70 K/uL (4.3-10.9) 05/28/21 05:45 Hgb 9.2 g/dL (12.0-15.0) L 05/28/21 05:45 Hct 27.4 % (36.0-45.0) L 05/28/21 05:45 Plt Count 130 K/uL (152-406) L 05/28/21 05:45 PT 17.7 SECONDS (9.5-12.5) H 05/26/21 12:19 INR 1.53 05/26/21 12:19 APTT 32.8 SECONDS (24.3-36.9) 05/26/21 12:19 Sodium 132 mmol/L (136-145) L 05/28/21 05:45 Potassium 4.7 mmol/L (3.5-5.1) 05/28/21 05:45 BUN 38 mg/dL (7-18) H 05/28/21 05:45 Creatinine 1.59 mg/dL (0.55-1.3) H 05/28/21 05:45 Glucose 282 mg/dL (74-106) H 05/28/21 05:45 Phosphorus 3.7 mg/dL (2.5-4.9) 05/28/21 05:45 Magnesium 1.8 mg/dL (1.8-2.4) 05/28/21 05:45 Total Bilirubin 2.9 mg/dL (0.2-1.0) H 05/27/21 05:47 AST 23 U/L (15-37) 05/27/21 05:47 ALT 13 U/L (12-78) 05/27/21 05:47 Alkaline Phosphatase 109 U/L (45-117) 05/27/21 05:47 Lipase 37 U/L (73-393) L 05/26/21 14:41 Home Medications: Insulin Degludec [Tresiba Flextouch U-100] 20 units SQ DAILY 05/27/21 Methyl Salicylate/Menthol [Icy Hot 10-30% Cream] 1 appl TP BEDTIME 05/27/21 traMADol HCL [Ultram*] 50 mg PO BID PRN 05/27/21 Cyanocobalamin (Vitamin B-12) [Vitamin B-12] 1,000 mcg PO DAILY #30 tablet 05/28/21 Folic Acid 1 mg PO DAILY #30 tablet 05/28/21 Furosemide [Lasix] 40 mg PO DAILY #30 tab 05/28/21 Levothyroxine [Synthroid] 25 mcg PO [id number] #[id number] tablet 05/28/21 Multivitamin 1 each PO DAILY #90 tablet 05/28/21 Pantoprazole [Protonix Tab] 40 mg PO DAILY #30 tab 05/28/21 Spironolactone [Aldactone*] 25 mg PO BID #60 tab 05/28/21 New Medications: Spironolactone [Aldactone*] 25 mg PO BID #60 tab Folic Acid 1 mg PO DAILY #30 tablet Furosemide [Lasix] 40 mg PO DAILY #30 tab Multivitamin 1 each PO DAILY #90 tablet Pantoprazole [Protonix Tab] 40 mg PO DAILY #30 tab Levothyroxine [Synthroid] 25 mcg PO [id number] #30 tablet Cyanocobalamin (Vitamin B-12) [Vitamin B-12] 1,000 mcg PO DAILY #30 tablet Physician Discharge Instructions: Patient presented with shortness of breath. This was related to her ascites and pleural effusion. Patient has cirrhosis of the liver. She also has a history of esophageal varices, anemia of chronic disease, and chronic ascites. She is seen by the liver transplant team. Her meld score is 16. She does not qualify for emergent transfer. During the course of her stay patient had a thorac entesis in which 1.9 L of fluid was removed. She also had a paracentesis in which 4 to 5 L removed. Patient stable at this time. Patient will continue with current medications. At discharge she will continue with Lasix 40 mg daily and Aldactone 25 mg 1 pill twice daily. Recommend to continue 1500 cc/day fluid restriction and low-salt diet. Recommend to monitor her weight daily. If her weight increases by more than 5 pounds she will need to follow-up with her PCP or liver specialist to further address. Patient will likely require repeat paracentesis in the future. This can be done as an outpatient with the help of her PCP or liver specialist. Recommend follow-up with her liver specialist within 1 week to follow-up this hospitalization and continue her care. Recommend recheck labCMP and CBC in 1 to 2 weeks. Recommend to recheck chest x-ray in 2 to 4 weeks to monitor resolution. Patient with history of gastric varices. Patient with underlying GERD. At discharge it is recommended to continue Protonix 40 mg daily. Patient had been taking anti-inflammatories for pain. Recommend to discontinue all nonsteroidal anti-inflammatories due to her history of varices. Recommend to discontinue Meloxicam and nabumetone. Patient is to no longer take these medications. She is not to take any nonsteroidal anti-inflammatories in the future including ibuprofen, Motrin, Aleve. Patient may continue with tramadol 50 mg twice daily as needed for pain. Patient may take Tylenol but limit Tylenol use up to no more than 2 g/day maximum. Patient with diabetes mellitus type 2. She is insulin-dependent. At discharge she will continue with Tresiba 20 units daily. Recommend to monitor blood sugars at least twice daily. Recommend to maintain blood sugar less than 140 fasting and less than 200 after meals. Further adjustment in her medication can be done by her PCP. Recommend to recheck hemoglobin A1c every 3 months to monitor progress. Recommend follow-up with PCP in 1 week to follow-up hospitalization. Patient with chronic renal disease stage III. This is remained stable. Recommend to establish care with nephrology as an outpatient to further address and monitor. Recommend to recheck CMP in 1 week. Patient with anemia of chronic disease. She required transfusion during the course of her stay. Patient received 2 units of blood. Hemoglobin now stable. Patient also with B12 deficiency. At discharge she will continue with multivitamin daily, folic acid 1 mg daily, and B12 1000 mg daily. Recommend to recheck labCBC in 1 to 2 weeks to monitor her progress. Patient with abnormal TSH and free T4. Patient likely with hypothyroidism. At discharge patient will be started on levothyroxine 25 mcg daily. Recommend to recheck TSH and free T4 in 4 to 6 weeks to monitor her progress. Further adjustment can be done by her PCP. Diet: AHA (1500 cc/day fluid restriction) Activity: Fall precautions Followup: NONE,NONE [Primary Care Provider] - Time spent managing pt's care (in minutes): 55
[2021-05-28 11:12] VITALS: O2SAT 95
[2021-05-28 14:31] VITALS: BP 132/61; TEMP 98.1
[2021-05-28] MEDS ORDERED: METHYL SALICYLATE TOP SCH (21:00)
[2021-05-28] MEDS ORDERED: MENTHOL TOP SCH (21:00)
== END 2021-05-28 12:45 | disposition home or self-care (01) | DRG 432 ==
LOC: ER 11:28 → ERHOLD 16:13 → 2ND 18:44
PROVIDERS: ADMIT Hospitalist; ATTEND Family Medicine
PROC: 30233N1 Transfusion of Nonautologous Red Blood Cells into Peripheral Vein, Percutaneous Approach (ICD-10-PCS; principal; 2021-05-26)
PROC: 0W9G3ZZ Drainage of Peritoneal Cavity, Percutaneous Approach (ICD-10-PCS; 2021-05-26)
PROC: 0W993ZZ Drainage of Right Pleural Cavity, Percutaneous Approach (ICD-10-PCS; 2021-05-27)
DX: K70.31 Alcoholic cirrhosis of liver with ascites (principal); J69.0 Pneumonitis due to inhalation of food and vomit; I85.00 Esophageal varices without bleeding; J90 Pleural effusion, not elsewhere classified; K76.6 Portal hypertension; D62 Acute posthemorrhagic anemia; E87.5 Hyperkalemia; I86.4 Gastric varices; I12.9 Hypertensive chronic kidney disease with stage 1 through stage 4 chronic kidney disease, or unspecified chronic kidney disease; N18.30 Chronic kidney disease, stage 3 unspecified; E11.22 Type 2 diabetes mellitus with diabetic chronic kidney disease; D63.8 Anemia in other chronic diseases classified elsewhere; D50.9 Iron deficiency anemia, unspecified; K21.9 Gastro-esophageal reflux disease without esophagitis; E53.8 Deficiency of other specified B group vitamins; E03.9 Hypothyroidism, unspecified; N28.9 Disorder of kidney and ureter, unspecified; Z79.899 Other long term (current) drug therapy; Z79.4 Long term (current) use of insulin; Z87.891 Personal history of nicotine dependence; Z90.49 Acquired absence of other specified parts of digestive tract; Z20.822 Contact with and (suspected) exposure to COVID-19
CPT/HCPCS: 32555; 36415; 49083; 71045; 71046; 74176; 80048; 80053; 80076; 82140; 82565; 82607; 82746; 82945; 82947; 83615; 83690; 83735; 83880; 84100; 84157; 84439; 84443; 85025; 85610; 85730; 86850; 86900; 86901; 87070; 89050; 96374; 96375; 99285; J1815; J1940; J2270; J7050; P9016; P9047; U0003